=== PATIENT | male | born 1960 | race Caucasian/White ===

== ENCOUNTER 2019-05-17 17:31 | Outpatient (CLI) | payer OTHER, SELFPAY ==
--- NOTE | ~2019-05-17 | CT_ITS ---
EXAMINATION: CT BRAIN W/O DATE: 05/17/2019 19:36 INDICATION: Headache TECHNIQUE: Computed tomography (CT) of the head was performed without intravenous contrast. The dose- length product was 605.33 mGy-cm. The mA was adjusted according to patient size. Iterative reconstruc tion technique was employed. COMPARISON: No prior studies for comparison. FINDINGS: Normal brain parenchymal volume for age. Normal aguilar-white differentiation. No acute intrac ranial hemorrhage, infarction, mass or mass effect. No ventriculomegaly or midline shift. Midline sagittal images demonstrate a normal corpus callosum, c raniovertebral junction and sella turcica. Basilar cisterns are patent. There is pansinusitis. Mastoids are pneumatized. No depressed skull fractures. IMPRESSION: 1. No acute intracranial abnormality. 2: Moderate sinusitis. Reviewed, dictated and finalized at location A. ER LAM[facility]
== END 2019-05-17 17:32 | disposition home or self-care (01) ==
LOC: ANHIMG 17:38
PROVIDERS: PCP Physician Assistant; Visit Provider Physician Assistant
DX: R51 Headache (principal); J32.9 Chronic sinusitis, unspecified
CPT/HCPCS: 70450

== ENCOUNTER 2019-07-04 19:42 | Emergency (ER) | payer OTHER, SELFPAY ==
[2019-07-04 19:46] VITALS: BP 178/90; PULSE 118; RESP 20; TEMP 36.8; O2SAT 99
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
== END 2019-07-04 20:38 | disposition home or self-care (01) ==
PROVIDERS: Emergency Provider Emergency Medicine; PCP Physician Assistant
DX: M79.5 Residual foreign body in soft tissue (principal); G30.9 Alzheimer's disease, unspecified; F02.80 Dementia in other diseases classified elsewhere, unspecified severity, without behavioral disturbance, psychotic disturbance, mood disturbance, and anxiety; F41.9 Anxiety disorder, unspecified; M19.90 Unspecified osteoarthritis, unspecified site; J44.9 Chronic obstructive pulmonary disease, unspecified; F32.9 Major depressive disorder, single episode, unspecified; E78.5 Hyperlipidemia, unspecified; I10 Essential (primary) hypertension
CPT/HCPCS: 99283

== ENCOUNTER 2019-08-05 22:17 | Emergency (ER) | payer OTHER, SELFPAY ==
[2019-08-05 22:20] VITALS: BP 108/70; PULSE 106; RESP 18; TEMP 36.3; O2SAT 96
--- NOTE | 2019-08-06 00:13 | PC.NURSE ---
Went to check on pt and pt was not in room.
== END 2019-08-05 23:40 | disposition left against medical advice (07) ==
PROVIDERS: PCP Physician Assistant
DX: Z53.21 Procedure and treatment not carried out due to patient leaving prior to being seen by health care provider (principal)
CPT/HCPCS: 99199

== ENCOUNTER 2019-09-28 21:46 | Emergency (ER) | payer OTHER, SELFPAY ==
[2019-09-28 21:51] VITALS: BP 176/97; PULSE 123; RESP 20; TEMP 37.2; O2SAT 97
[2019-09-28 22:11] VITALS: BP 166/87; PULSE 120; RESP 18; TEMP 37.1; O2SAT 95
[2019-09-28] MEDS: ACETAMINOPHEN 500 MG TABLET 1000 MG PO (22:36)
[2019-09-28] MEDS: SODIUM CHLORIDE 0.9% IV 500 ML 999 ML IV CONT (22:37)
[2019-09-28 23:06] VITALS: TEMP 36.7
--- NOTE | 2019-09-28 23:10 | ED.SKABFB ---
HPI - Skin/Abscess/Foreign Bdy General Chief complaint: Skin/Abscess/Foreign Body Stated complaint: cellulitis on left leg Time Seen by Provider: 09/28/19 22:22 History of Present Illness HPI narrative: Patient is a 59-year-old male who presents ER with left lower extremity redness. Ongoing over the last couple weeks. Finished a course of Bactrim 1 week ago. Treated by PCP. No fevers or chills or sweats. Reports he will break off dry flecks of skin and then his lower extremity will turn red and become hot. It is nontender. No drainage. Patient also has history of heart failure and takes furosemide. Related Data Home Medications Medication Instructions Recorded Confirmed albuterol sulfate [ProAir HFA] INHALATION 09/28/19 09/28/19 aspirin 09/28/19 atorvastatin 09/28/19 furosemide 09/28/19 lisinopril-hydrochlorothiazide tablet 09/28/19 metoprolol succinate PO 09/28/19 Allergies Allergy/AdvReac Type Severity Reaction Status Date / Time No Known Drug Allergies Allergy Unknown Unknown Verified 09/28/19 22:17 Review of Systems Review of Systems: All systems reviewed & are unremarkable except as noted in HPI and below Constitutional: Constitutional: Denies chills, Denies fever(s) and Denies weakness ENT: Denies nasal congestion and Denies sore throat Cardiovascular: Cardiovascular: Denies chest pain, Reports rapid heart rate (Reports heart rate is always elevated) and Denies radiating jaw, neck or arm pain Respiratory: Respiratory: Denies cough and Denies dyspnea Gastrointestinal: Gastrointestinal: Denies abdominal pain, Denies nausea and Denies vomiting Integumentary/Breasts: Skin/Breast: Denies pruritus, Reports erythema and Denies rash PMFSH Social History Social History (Updated 07/04/19 @ 20:19 by Telma Gonzales) Smoking status: Current every day smoker Alcohol intake: current Gender identity (if verbalized by the patient): Male Exam Narrative: Exam Narrative: GENERAL: Chronically ill-appearing, well-nourished, and in no acute distress. HEAD: Normocephalic, atraumatic. ENT: Mucous membranes moist. CHEST: Clear to auscultation. No respiratory distress. HEART: Tachycardic and regular. Normal peripheral pulses. ABDOMEN: Soft, nontender, nondistended, normal active bowel sounds. EXTREMITIES: Normal range of motion. 1+ edema. SKIN: Warm, dry. Red rash left lower extremity dorsum of the foot extending up to the mid calf in the distribution of a sock. No purulent or serous drainage. Warm to touch but nontender. NEURO: Alert and oriented x3. Course Course Emergency Course: Patient's rash could certainly be fungal or stasis dermatitis. Elevation white blood cell count. Will start on clotrimazole cream and needs to follow-up with his PCP. Vital Signs Vital signs: Vital Signs Temperature 99.0 F 09/28/19 21:51 Pulse Rate 123 H 09/28/19 21:51 Respiratory Rate 20 09/28/19 21:51 Blood Pressure 176/97 H 09/28/19 21:51 Pulse Oximetry 97 09/28/19 21:51 Temperature 98.8 F 09/28/19 22:11 Pulse Rate 120 H 09/28/19 22:11 Respiratory Rate 18 09/28/19 22:11 Blood Pressure 166/87 H 09/28/19 22:11 Pulse Oximetry 95 09/28/19 22:11 MDM - Skin/Abscess/Foreign Bdy Lab Data Result diagrams: 09/28/19 22:39 09/28/19 22:39 Labs: Lab Results 09/28/19 09/28/19 09/28/19 Range/Units 22:39 22:39 23:06 WBC 6.2 (4.5-10.0) K/mm3 RBC 3.93 L (4.6-6.20) M/mm3 Hgb 12.1 L (14.0-18.0) g/dL Hct 36.2 L (42.0-52.0) % MCV 92.1 (80-100) fl MCH 30.8 (26-34) pg MCHC 33.4 (32-36) g/dl RDW 14.6 H (11.5-14.5) % Plt Count 214 (150-375) k/mm3 MPV 9.5 (7.4-10.4) fl Immature Gran % (Auto) 0.5 (0-0.5) % Neut % (Auto) 53.4 (45.5-73.1) % Lymph % (Auto) 29.4 (18.3-44.2) % [place] % (Auto) 11.2 H (2.6-8.5) % Eos % (Auto) 4.7 H (0-4.4) % Baso % (Auto) 0.8 (0.2-1.2) % Lymph # (Auto) 1.81
[2019-09-28 23:13] LABS: Basophils Absolute Auto 0.1 K/mm3 (0.0-0.1); Basophils Percent Auto 0.8 % (0.2-1.2); Eosinophils Absolute Auto 0.3 K/mm3 (0-0.3); Eosinophils Percent Auto 4.7 % (0-4.4); Hematocrit 36.2 % (42.0-52.0); Hemoglobin 12.1 g/dL (14.0-18.0); Immature Granulocyte Absolute 0.03 K/mm3 (0.00-0.031); Immature Granulocyte Percent A 0.5 % (0-0.5); Lymphocytes Absolute Auto 1.81 K/mm3 (0.9-3.2); Lymphocytes Percent Auto 29.4 % (18.3-44.2); Mean Corpuscular HGB Conc 33.4 g/dl (32-36); Mean Corpuscular Hemoglobin 30.8 pg (26-34); Mean Corpuscular Volume 92.1 fl (80-100); Mean Platelet Volume 9.5 fl (7.4-10.4); Monocytes Absolute Auto 0.7 K/mm3 (0.1-0.6); Monocytes Percent Auto 11.2 % (2.6-8.5); Neutrophils Absolute Auto 3.3 K/mm3 (1.3-6.7); Neutrophils Percent Auto 53.4 % (45.5-73.1); Platelet Count Result 214 k/mm3 (150-375); Red Blood Count 3.93 M/mm3 (4.6-6.20); Red Cell Distribution Width 14.6 % (11.5-14.5); White Blood Count 6.2 K/mm3 (4.5-10.0)
[2019-09-28 23:22] LABS: Blood Urea Nitrogen 21 mg/dL (9-20); Calcium 8.6 mg/dL (8.4-10.2); Carbon Dioxide 31 mmol/L (22-30); Chloride 98 mmol/L (98-107); Estimated CRCL calculation 110 ml/min; Estimated Glomerular Filt Rate > 60; Glucose 127 mg/dL (75-110); Potassium 3.6 mmol/L (3.4-5.0); Sodium 134 mmol/L (137-145)
[2019-09-28 23:23] LABS: Lactic Acid Reflex 1.5 mmol/L (0.7-2.1)
[2019-09-29 00:08] VITALS: BP 188/108; PULSE 109; RESP 14; TEMP 36.7; O2SAT 98
== END 2019-09-29 00:10 | disposition home or self-care (01) ==
PROVIDERS: Emergency Provider Emergency Medicine; PCP Physician Assistant
DX: B36.9 Superficial mycosis, unspecified (principal); F17.200 Nicotine dependence, unspecified, uncomplicated
CPT/HCPCS: 36415; 80048; 83605; 85025; 96360; 99283; A9270; J7040

== ENCOUNTER 2020-01-07 16:11 | Inpatient (IN) | payer OTHER, SELFPAY ==
--- NOTE | ~2020-01-07 | XR_ITS ---
EXAMINATION: XR chest 2V DATE: 01/08/2020 08:40 INDICATION: Cough. TECHNIQUE: Frontal and lateral views of the chest were obtained. COMPARISON: Chest single view 01/07/2020, CT abdomen and pelvis 11/06/2016 FINDINGS: There is mild scarring at the lung apices. There is mild atelectasis versus scarring at the lung bases. No pleural effusion or pneumothorax. The heart size is normal. IMPRESSION: 1. Mild atelectasis versus scarring at the lung bases and mild scarring at the lung apices. Reviewed, dictated and finalized at location A.
--- NOTE | ~2020-01-07 | XR_ITS ---
EXAMINATION: XR chest 1V portable EXAM DATE: 01/07/2020 16:41 INDICATION: Sudden onset fever and shortness of breath. TECHNIQUE: Portable AP frontal chest x-ray was obtained. Comparison is made to prior examination from 03/07/2018. FINDINGS: Mild hyperinflation. Bilateral indistinct reticulation, possible mild pulmonary edema. Also possibility of some vague developing acute airspace disease. Can't exclude developing acute infectio us process, please clinically correlate. There is left epicardial fat pad. There are bony degenerativ e changes. There is no pneumothorax suspected. IMPRESSION: Possible mild pulmonary edema or developing acute infectious process. Reviewed, dictated and finalized at location G. IMPRESSION: Possible mild pulmonary edema or developing acute infectious proces s.
[2020-01-07 16:12] VITALS: BP 102/72; PULSE 149; RESP 25; TEMP 38.1; O2SAT 96
--- NOTE | 2020-01-07 16:17 | ECG_ITS ---
Measurements Intervals [place] Rate: 148 P: 58 TN: 133 QRS: 33 QRSD: 93 T: 53 QT: 271 QTc: 425 Interpretive Statements SINUS TACHYCARDIA ABNORMAL ECG Electronically Signed On 01-07-2020 16:45:21 CDT by Dionicio Danielle D.O.
[2020-01-07 16:45] LABS: Hematocrit 42.5 % (42.0-52.0); Hemoglobin 14.4 g/dL (14.0-18.0); Mean Corpuscular HGB Conc 33.9 g/dl (32-36); Mean Corpuscular Hemoglobin 31.3 pg (26-34); Mean Corpuscular Volume 92.4 fl (80-100); Red Cell Distribution Width 12.9 % (11.5-14.5); White Blood Count 7.5 K/mm3 (4.5-10.0)
[2020-01-07 16:55] LABS: INR 1.2; Prothrombin Time 14.8 Seconds (11.1-14.7)
[2020-01-07 16:56] LABS: Lactic Acid Reflex 2.4 mmol/L (0.7-2.1)
[2020-01-07 16:56] LABS: Partial Thromboplastin Time 24.3 SECONDS (22.3-36.8)
[2020-01-07 17:00] LABS: Alanine Aminotransferase 48 U/L (4-50); Albumin Level 3.7 g/dL (3.5-5.1); Alkaline Phosphatase 184 U/L (38-126); Anion Gap 7 mmol/L (8-16); Aspartate Amino Transferase 89 U/L (17-59); Bilirubin,Total 0.6 mg/dL (0.2-1.3); Blood Urea Nitrogen 22 mg/dL (9-20); CRP 2.1 mg/dL (<1.0); Calcium 8.8 mg/dL (8.4-10.2); Carbon Dioxide 22 mmol/L (22-30); Chloride 101 mmol/L (98-107); Estimated CRCL calculation 71 ml/min; Estimated Glomerular Filt Rate > 60; Glucose 127 mg/dL (75-110); Potassium 3.9 mmol/L (3.4-5.0); Sodium 130 mmol/L (137-145)
[2020-01-07] MEDS: LACTATED RINGERS 1,000 ML 999 ML IV CONT ×2 (17:00→17:04)
[2020-01-07] MEDS: ACETAMINOPHEN 500 MG TABLET 1000 MG PO (17:04)
[2020-01-07 17:12] LABS: Band Neutrophils Percent 19 % (0-6); Lymphocytes Absolute Manual 0.37 K/mm3 (1.1-4.5); Monocytes Absolute Manual 0.15 K/mm3 (0.1-0.90); Monocytes Percent Manual 2 % (3-9); Neutrophils Absolute Manual 6.97 K/mm3 (1.3-6.7); Neutrophils Percent Manual 74 % (46-73); Total Cells Counted 100
[2020-01-07 17:13] LABS: Platelet Estimate Adequate (Adequate)
--- NOTE | 2020-01-07 17:29 | ED.FEVER ---
HPI - Fever General Chief Complaint: Fever Stated Complaint: SOB Time Seen by Provider: 01/07/20 16:33 Source: patient Mode of arrival: ambulatory Limitations: no limitations History of Present Illness HPI Narrative: 59-year-old male History of hypertension and COPD Remote history of pancreatitis Complains of a abrupt onset of fever and chills this afternoon Has a mild cough Not particularly short of breath Not exposed to the COVID that he knows of Related Data Home Medications Medication Instructions Recorded Confirmed albuterol sulfate [ProAir HFA] INHALATION 09/28/19 09/28/19 aspirin 09/28/19 atorvastatin 09/28/19 furosemide 09/28/19 lisinopril-hydrochlorothiazide tablet 09/28/19 metoprolol succinate PO 09/28/19 Allergies Allergy/AdvReac Type Severity Reaction Status Date / Time No Known Drug Allergies Allergy Unknown Unknown Verified 09/28/19 22:17 Review of Systems Review of Systems: All systems reviewed & are unremarkable except as noted in HPI and below Constitutional: Constitutional: Reports chills, Reports fatigue, Reports fever(s), Denies headache(s) and Denies night sweats Eyes: Eyes: Denies change in vision, Denies loss of vision and Denies other visual disturbances ENT: Denies headache(s), Denies hoarseness, Denies nasal congestion and Denies sore throat Cardiovascular: Cardiovascular: Denies chest pain, Denies leg edema, Denies palpitations and Denies dyspnea Respiratory: Respiratory: Reports no additional respiratory complaints Gastrointestinal: Gastrointestinal: Denies abdominal pain, Denies diarrhea, Denies nausea and Denies vomiting Genitourinary: Genitourinary: Denies hematuria, Denies dysuria and Denies urinary frequency Musculoskeletal: Musculoskeletal: Denies abnormal gait, Reports back pain, Reports myalgias, Denies deformity, Reports arthralgias, Denies joint swelling, Denies muscle weakness and Denies numbness Integumentary/Breasts: Skin/Breast: Denies rash, Denies unusual bruising and Denies wounds Neurologic: Denies abnormal gait, Denies headache(s), Denies focal weakness, Denies loss of vision and Denies numbness Psychiatric: Psychiatric: Reports no additional psychiatric complaints Endocrine: Endocrine: Denies fatigue and Denies palpitations Hematologic/Lymphatic: Hematologic/Lymphatic: Denies easy bleeding and Denies easy bruising Allergic/Immunologic: Allergic/Immunologic: Denies wheezing [facility] Social History Social History (Updated 07/04/19 @ 20:19 by Telma Gonzales) Smoking status: Current every day smoker Alcohol intake: current Gender identity (if verbalized by the patient): Male Exam Const: General: well developed and ill appearing Orientation/consciousness: patient oriented x3 (alert) and Other orientation findings (Alert) HENMT: Head: normocephalic and atraumatic Ears: external ears normal General nose exam: No nasal discharge present Face and sinus: face symmetric Mouth: Yes tongue normal and Yes moist mucous membranes Throat: other (No exudate, no erythema) Eyes: Conjunctivae: conjunctivae normal Sclera: sclerae normal EOM: EOMs intact bilaterally Neck: Neck: full ROM and supple Thyroid: thyroid normal Other: Supple Chest: Chest palpation & inspection: no tenderness Resp: Effort & Inspection: normal respiratory effort and tachypneic Auscultation: clear to auscultation bilaterally, no rales, no rhonchi, no wheezes and other (breath sounds equal) Cardio: Rate: regular rate Rhythm: regular rhythm Heart sounds: no gallops and no murmurs GI: Inspection: non-distended GI Palp: No abdominal tenderness, Yes Soft to palpation and No Tenderness to palpation present (GI) Auscultation: other (bowel sounds present) : General: Yes no CVA tenderness Back/Spine/Pelvis: Back: no CVA tenderness Thoracic/Lumbar Spine: thoracic and lumbar spine normal to inspection Skin: General skin exam: normal color and no rashes or lesion
[2020-01-07 17:37] LABS: Alveolar/Arterial O2 Gradient 45.9 mmHg; Base Excess ABG -1.4 mEq/l (+/-2.0); Device ROOM AIR; Fractional Inspired Oxygen 21 %; HCO3 ABG 20.2 mEq/l (22.0-26.0); Modified Allen's Test Pass; Oxygen Content ABG 18.5 %vol (16.0-22.0); PCO2 ABG 26.5 mmHg (35.0-45.0); PO2 ABG 72.1 mmHg (80.0-100.0); PO2 FiO2 Ratio Arterial Blood 3.43 %; Site Drawn RIGHT RADIAL; Total Hemoglobin 14.1 g/dL (12.0-18.0); pH ABG 7.501 (7.350-7.450)
[2020-01-07] MEDS: AZITHROMYCIN 250 MG TABLET 500 MG PO (18:02)
[2020-01-07] MEDS: HYDROcodone/acetaminophen (*CRX) 5-325 MG TABLET 1 TAB PO (18:03)
[2020-01-07 18:06] VITALS: BP 111/96; PULSE 121; RESP 23; O2SAT 96
[2020-01-07 19:42] LABS: Reflex Lactic Acid Yes or No Add Lactic
[2020-01-07 20:33] VITALS: BP 115/91; PULSE 105; RESP 27; O2SAT 100
[2020-01-07 20:38] LABS: Lactic Acid 1.3 mmol/L (0.7-2.1)
[2020-01-07 21:10] VITALS: BP 122/79; PULSE 106; RESP 22; TEMP 36.8; O2SAT 96; BMI 34.9
[2020-01-07 21:19] VITALS: BMI 34.9
--- NOTE | 2020-01-07 21:23 | ADMGEN ---
This patient, Ozzy Ch, was admitted to [facility] Surg Room 328-01 at 2110. Patient/family oriented to hospital policies and general routines including ID bracelet, bed and alarms, visiting hours, pain management, procedures, bathroom and other care routines, personal items, smoking policy, room service/diet, and visiting hours. Valuables list has been completed. Information on how to activate the Rapid Response Team has been discussed. Patient/Family are encouraged to report perceived risks to care and to ask questions if they do not understand what they are told or what they should do.
[2020-01-07] MEDS: LACTATED RINGERS 1,000 ML 125 ML IV CONT (21:38)
[2020-01-08] VITALS: BP 120/88; PULSE 104; RESP 20; TEMP 36.6; O2SAT 98
[2020-01-08] MEDS: ENOXAPARIN 40 MG/0.4 ML SYRINGE SUB-Q ×2 (01:14→07:48)
[2020-01-08] MEDS: FAMOTIDINE 20 MG/2 ML VIAL IV PUSH ×2 (01:15→07:47)
[2020-01-08 01:33] LABS: Add Urine Microscopic? YES; Amorphous Sediment Urine Few; Appearance Urine Clear (Clear); Bacteria Urine Trace /hpf; Bilirubin Urine Negative (Negative); Blood Urine 2+ (Negative); Color Urine Yellow (Yellow); Glucose Urine UA Negative (Negative); Ketones Urine Negative (Negative); Leukocyte Esterase Ur Negative LEU/UL (Negative); Mucus Urine Rare /lpf; Nitrate Urine Negative (Negative); Protein Urine 1+ mg/dL (Negative); Squamous Epithelial Cell Urine Rare /hpf (Few); Urobilinogen Urine Negative mg/dL (<2.0)
[2020-01-08 04:00] VITALS: BP 124/83; PULSE 96; RESP 20; TEMP 36.7; O2SAT 100
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
[2020-01-08] MEDS: LACTATED RINGERS 1,000 ML 125 ML IV CONT (07:42)
[2020-01-08 07:43] VITALS: PULSE 96
[2020-01-08] MEDS: lisinopriL 20 MG TABLET PO (07:43)
[2020-01-08] MEDS: METOPROLOL SUCCINATE EXT REL 25 MG TABCR PO (07:43)
[2020-01-08] MEDS: ATORVASTATIN 20 MG TABLET PO (07:44)
[2020-01-08] MEDS: ASPIRIN 81 MG ENTERIC TABLET PO (07:44)
[2020-01-08] MEDS: chlordiazePOXIDE (*CRX) 10 MG CAPSULE PO (07:46)
[2020-01-08] MEDS: AZITHROMYCIN 250 MG TABLET 500 MG PO (07:48)
[2020-01-08] MEDS: NICOTINE (*PBKC) 4 MG GUM PO (07:58)
[2020-01-08 08:00] VITALS: BP 135/90; PULSE 104; RESP 20; TEMP 36.4; O2SAT 100
[2020-01-08 08:03] LABS: Basophils Absolute Auto 0.2 K/mm3 (0.0-0.1); Basophils Percent Auto 0.7 % (0.2-1.2); Eosinophils Absolute Auto 0.3 K/mm3 (0-0.3); Hematocrit 42.6 % (42.0-52.0); Hemoglobin 14.5 g/dL (14.0-18.0); Immature Granulocyte Absolute 1.09 K/mm3 (0.00-0.031); Immature Granulocyte Percent A 4.2 % (0-0.5); Lymphocytes Absolute Auto 0.88 K/mm3 (0.9-3.2); Lymphocytes Percent Auto 3.4 % (18.3-44.2); Mean Corpuscular Hemoglobin 32.1 pg (26-34); Mean Corpuscular Volume 94.2 fl (80-100); Mean Platelet Volume 10.7 fl (7.4-10.4); Monocytes Absolute Auto 1.3 K/mm3 (0.1-0.6); Monocytes Percent Auto 4.8 % (2.6-8.5); Neutrophils Absolute Auto 22.5 K/mm3 (1.3-6.7); Neutrophils Percent Auto 85.9 % (45.5-73.1); Platelet Count Result 174 k/mm3 (150-375); Red Blood Count 4.52 M/mm3 (4.6-6.20); Red Cell Distribution Width 13.2 % (11.5-14.5); White Blood Count 26.2 K/mm3 (4.5-10.0)
[2020-01-08 08:12] LABS: Anion Gap 8 mmol/L (8-16); Blood Urea Nitrogen 25 mg/dL (9-20); Calcium 9.1 mg/dL (8.4-10.2); Carbon Dioxide 21 mmol/L (22-30); Chloride 104 mmol/L (98-107); Estimated CRCL calculation 90 ml/min; Estimated Glomerular Filt Rate > 60; Glucose 138 mg/dL (75-110); Potassium 4.4 mmol/L (3.4-5.0); Sodium 133 mmol/L (137-145)
[2020-01-08 08:32] LABS: Benzodiazepines Screen Urine Negative (Negative)
[2020-01-08 08:33] LABS: Cannabinoid Screen Urine Negative (Negative); Cocaine Screen Urine Negative (Negative); Methadone Screen Urine Negative (Negative); Opiate Screen Urine Positive (Negative); Phencyclidine Screen Urine Negative (Negative)
[2020-01-08 08:34] LABS: Barbiturate Screen Urine Negative (Negative)
[2020-01-08 08:35] LABS: Amphetamine Screen Urine Positive (Negative)
[2020-01-08] MEDS: FOLIC ACID 1 MG TABLET PO (09:03)
[2020-01-08] MEDS: THIAMINE HCL 100 MG TABLET PO (09:03)
[2020-01-08] MEDS: cloNIDine HCL 0.1 MG TABLET PO (09:03)
[2020-01-08 13:55] LABS: SARS-CoV-2 RNA PCR Negative
--- NOTE | 2020-01-11 12:47 | PM.DS ---
DS: Admitting Diagnosis Admitting Diagnosis Admitting Diagnosis: pneumonia, sepsis DS: Summary Hospital Course Hospital Course: patient left the hospital against medical advise before I had seen or examined him. Since I had not seen him , I am unable to comment on his condition when he left the hospital Time Spent with Patient Time attestation: Total time spent providing and/or coordinating discharge services: DS: Data Data Completed and Pending Labs on day of discharge: Preliminary micro results at discharge 01/07/20 16:29 Blood Culture - Preliminary Blood Micrococcus luteus 01/07/20 16:29 Blood Culture - Preliminary Blood Discharge Plan Discharge Consulting providers: Jameson Tony ; Dionicoi Danielle ; Kiana Yuen ; Lamonte Grewal V. Patient Disposition: Left Against Medical Advice Patient Instructions: How to Stop Smoking (GEN) Discharge Medications: No Action furosemide 40 mg tablet 40 mg PO DAILY RF: 0 atorvastatin 20 mg tablet 20 mg PO DAILY RF: 0 lisinopril-hydrochlorothiazide 20-12.5 mg tablet 1 tablet PO DAILY RF: 0 aspirin 81 mg tablet,delayed release (DR/EC) 81 mg PO DAILY RF: 0 metoprolol succinate 25 mg tablet extended release 24 hr 25 mg PO DAILY RF: 0 albuterol sulfate [ProAir HFA] 90 mcg/actuation HFA aerosol inhaler 3 puff INHALATION PRN PRN (Reason: Shortness Of Breath Or Wheezing) RF: 0 Date of admission: 01/07/20 19:11 Admitting Provider: Rick Khan Discharge Date/Time: 01/08/20 09:36 Attending physician on admission: Rick Khan Condition: Serious
== END 2020-01-08 09:36 | disposition left against medical advice (07) | DRG 720 ==
LOC: ANHED 19:10 → ANH3MEDSUR 20:10
PROVIDERS: Emergency Medicine; Internal Medicine; Admitting Provider Internal Medicine; Emergency Provider Emergency Medicine; Visit Provider Internal Medicine
DX: A41.9 Sepsis, unspecified organism (principal); J18.9 Pneumonia, unspecified organism; I11.0 Hypertensive heart disease with heart failure; I50.9 Heart failure, unspecified; J44.0 Chronic obstructive pulmonary disease with (acute) lower respiratory infection; Z20.828 Contact with and (suspected) exposure to other viral communicable diseases; F17.210 Nicotine dependence, cigarettes, uncomplicated; E78.5 Hyperlipidemia, unspecified; F10.10 Alcohol abuse, uncomplicated; F19.90 Other psychoactive substance use, unspecified, uncomplicated; Z79.82 Long term (current) use of aspirin; Z79.899 Other long term (current) drug therapy
CPT/HCPCS: 36415; 36600; 71045; 71046; 80048; 80053; 80307; 81001; 82805; 83605; 85025; 85610; 85730; 86140; 87040; 87076; 87077; 87635; 93005; 96361; 96365; 96375; 99285; A9270; C9803; J0696; J1100; J1650; J3370; J7120; U0003

== ENCOUNTER 2020-03-15 23:29 | Inpatient (IN) | payer OTHER, SELFPAY ==
--- NOTE | ~2020-03-15 | XR_ITS ---
XR chest 1V portable DATE: 03/15/2020 23:41 INDICATION: Cough TECHNIQUE: Portable AP chest on 03/07/2020 at 2344 hours COMPARISON: 01/08/2020 AP and lateral chest 03/07/2018 two-view chest FINDINGS: Heart size is within normal range. Is aortic calcification and mild unfolding. Diffuse chronic interstitial fibrosis. No pulmonary consolidation, pleural effusion or pneumothorax i s evident. Diffuse osteopenia. IMPRESSION: Chronic bilateral diffuse interstitial fibrosis Reviewed, dictated and finalized at location A. [facility]
--- NOTE | ~2020-03-15 | CT_ITS ---
EXAMINATION: CT brain wo con DATE: 03/16/2020 01:00 INDICATION: Altered mental status TECHNIQUE: Computed tomography (CT) of the head was performed without intravenous contrast. The mA wa s adjusted according to patient size. Iterative reconstruction technique was employed. Exam dose: 60 5.33 mGy-cm total exam DLP. COMPARISON: 05/17/2019 CT brain FINDINGS: Examination limited by motion artifact. No intracranial mass lesion or hemorrhage or cerebrovascular accident is evident. No midline shift or mass effect. Mild cerebral atrophy. No subdural or epidural hematoma. No fracture or bone destruction of the cranial vault. There is mucoperiosteal thickening of the maxillary sinuses, left and right frontal and right sphenoi d sinus and patchy opacification of the ethmoid air cells. The mastoid air cells are normally develop ed and aerated. IMPRESSION: No significant intracranial abnormality Paranasal sinus disease Reviewed, dictated and finalized at Location A. Reviewed, dictated and finalized at location A. 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
[2020-03-15 23:29] VITALS: BP 187/103; PULSE 115; RESP 32; TEMP 36.4; O2SAT 88
[2020-03-16] VITALS (46 sets, daily range): BP systolic 141–215; BP diastolic 59–125; PULSE 87–111; RESP 10–30; TEMP 36.8; O2SAT 90–100
[2020-03-16] MEDS: SODIUM CHLORIDE 0.9% IV 1,000 ML 150 ML IV CONT (00:12)
[2020-03-16 00:16] LABS: Basophils Absolute Auto 0.1 K/mm3 (0.0-0.1); Basophils Percent Auto 0.8 % (0.2-1.2); Eosinophils Absolute Auto 0.8 K/mm3 (0-0.3); Eosinophils Percent Auto 11.3 % (0-4.4); Hematocrit 43.3 % (42.0-52.0); Immature Granulocyte Absolute 0.02 K/mm3 (0.00-0.031); Immature Granulocyte Percent A 0.3 % (0-0.5); Lymphocytes Absolute Auto 1.47 K/mm3 (0.9-3.2); Lymphocytes Percent Auto 22.2 % (18.3-44.2); Mean Corpuscular HGB Conc 32.3 g/dl (32-36); Mean Corpuscular Hemoglobin 30.6 pg (26-34); Mean Corpuscular Volume 94.5 fl (80-100); Mean Platelet Volume 9.8 fl (7.4-10.4); Monocytes Absolute Auto 0.5 K/mm3 (0.1-0.6); Monocytes Percent Auto 8.2 % (2.6-8.5); Neutrophils Absolute Auto 3.8 K/mm3 (1.3-6.7); Neutrophils Percent Auto 57.2 % (45.5-73.1); Platelet Count Result 234 k/mm3 (150-375); Red Blood Count 4.58 M/mm3 (4.6-6.20); Red Cell Distribution Width 13.3 % (11.5-14.5); White Blood Count 6.6 K/mm3 (4.5-10.0)
[2020-03-16 00:29] LABS: Add Urine Microscopic? YES; Appearance Urine Clear (Clear); Bilirubin Urine Negative (Negative); Blood Urine 1+ (Negative); Color Urine Yellow (Yellow); Glucose Urine UA Negative (Negative); Ketones Urine Negative (Negative); Leukocyte Esterase Ur Negative LEU/UL (Negative); Nitrate Urine Negative (Negative); Protein Urine Negative (Negative); RBC Urine 0-2 /hpf (0-2); Specific Grav Ur 1.013 (1.001-1.035); Urobilinogen Urine Negative mg/dL (<2.0); WBC Urine 0-3 /hpf
[2020-03-16 00:29] LABS: Alanine Aminotransferase 31 U/L (4-50); Albumin Level 3.8 g/dL (3.5-5.1); Alkaline Phosphatase 120 U/L (38-126); Anion Gap 4 mmol/L (8-16); Aspartate Amino Transferase 39 U/L (17-59); Bilirubin,Total 0.5 mg/dL (0.2-1.3); Blood Urea Nitrogen 17 mg/dL (9-20); Calcium 8.8 mg/dL (8.4-10.2); Carbon Dioxide 38 mmol/L (22-30); Chloride 96 mmol/L (98-107); Estimated CRCL calculation 96 ml/min; Estimated Glomerular Filt Rate > 60; Ethanol < 10 mg/dL (<10); Glucose 108 mg/dL (75-110); Potassium 3.7 mmol/L (3.4-5.0); Sodium 138 mmol/L (137-145)
[2020-03-16 00:34] LABS: Amphetamine Screen Urine Positive (Negative); Barbiturate Screen Urine Negative (Negative); Benzodiazepines Screen Urine Negative (Negative); Cannabinoid Screen Urine Negative (Negative); Cocaine Screen Urine Negative (Negative); Methadone Screen Urine Negative (Negative); Opiate Screen Urine Negative (Negative); Phencyclidine Screen Urine Negative (Negative)
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
[2020-03-16 00:49] LABS: Base Excess ABG 5.5 mEq/l (+/-2.0); Fractional Inspired Oxygen 21 %; HCO3 ABG 34.4 mEq/l (22.0-26.0); Oxygen Content ABG 18.5 %vol (16.0-22.0); Oxygen Saturation ABG 92.7 % (95.0-100.0); Oxyhemoglobin 90.1 % THb (90.0-100.0); PO2 ABG 72.8 mmHg (80.0-100.0); PO2 FiO2 Ratio Arterial Blood 3.47 %; Total Hemoglobin 14.6 g/dL (12.0-18.0); pH ABG 7.306 (7.350-7.450)
[2020-03-16 00:51] LABS: Device ROOM AIR; Modified Allen's Test Pass; PCO2 ABG 70.5 mmHg (35.0-45.0); Site Drawn RIGHT RADIAL
--- NOTE | 2020-03-16 01:01 | PC.NURSE ---
spoke with pt's , Cary Bauer, and updated her on pt condition.
[2020-03-16 02:38] LABS: Alveolar/Arterial O2 Gradient 75.1 mmHg; Base Excess ABG 1.5 mEq/l (+/-2.0); Fractional Inspired Oxygen 30 %; HCO3 ABG 30.1 mEq/l (22.0-26.0); Oxygen Content ABG 17.6 %vol (16.0-22.0); Oxygen Saturation ABG 88.3 % (95.0-100.0); Oxyhemoglobin 85.7 % THb (90.0-100.0); PO2 ABG 62.2 mmHg (80.0-100.0); PO2 FiO2 Ratio Arterial Blood 2.07 %; Total Hemoglobin 14.6 g/dL (12.0-18.0)
[2020-03-16 02:39] LABS: Modified Allen's Test Pass; PCO2 ABG 65.2 mmHg (35.0-45.0); Site Drawn RIGHT RADIAL; pH ABG 7.282 (7.350-7.450)
[2020-03-16 02:40] LABS: Device NON-INVASIVE VENT; Non-Invasive Expiratory Pressure 6 CMH2O; Non-Invasive Inspiratory Pressure 12 CMH2O; Non-Invasive Vent Rate 20 /MIN
--- NOTE | 2020-03-16 02:43 | ECG_ITS ---
Measurements Intervals [place] Rate: 97 P: 64 NM: 170 QRS: 50 QRSD: 100 T: 56 QT: 348 QTc: 443 Interpretive Statements SINUS RHYTHM DELAYED PRECORDIAL R/S TRANSITION BORDERLINE ECG Electronically Signed On 03-16-2020 9:27:58 COLLECTION ADMINISTRATOR by Dionicio Danielle D.O.
[2020-03-16 03:47] LABS: NT Pro B Type Natriuretic Pept 71 PG/ML (5-100); Troponin I < 0.012 ng/mL (0.000-0.034)
[2020-03-16 03:55] LABS: Alveolar/Arterial O2 Gradient 129.3 mmHg; Base Excess ABG 3.5 mEq/l (+/-2.0); Fractional Inspired Oxygen 50 %; HCO3 ABG 33.2 mEq/l (22.0-26.0); Oxygen Content ABG 19.3 %vol (16.0-22.0); Oxygen Saturation ABG 98.3 % (95.0-100.0); Oxyhemoglobin 95.1 % THb (90.0-100.0); PO2 ABG 141.6 mmHg (80.0-100.0); PO2 FiO2 Ratio Arterial Blood 2.83 %; Total Hemoglobin 14.3 g/dL (12.0-18.0)
[2020-03-16 03:56] LABS: Device NON-INVASIVE VENT; Modified Allen's Test Pass; PCO2 ABG 76.1 mmHg (35.0-45.0); Site Drawn RIGHT RADIAL; pH ABG 7.257 (7.350-7.450)
[2020-03-16 03:57] LABS: Non-Invasive Expiratory Pressure 6 CMH2O; Non-Invasive Inspiratory Pressure 20 CMH2O; Non-Invasive Vent Rate 24 /MIN
[2020-03-16] MEDS: NITROGLYCERIN SL 0.4 MG TABLET SUBLINGUAL (04:15)
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
[2020-03-16 11:48] LABS: Alveolar/Arterial O2 Gradient 154.5 mmHg; Fractional Inspired Oxygen 40 %; HCO3 ABG 32.5 mEq/l (22.0-26.0); Oxygen Content ABG 17.8 %vol (16.0-22.0); Oxygen Saturation ABG 89.8 % (95.0-100.0); Oxyhemoglobin 89.8 % THb (90.0-100.0); PO2 ABG 61.4 mmHg (80.0-100.0); PO2 FiO2 Ratio Arterial Blood 1.54 %; Total Hemoglobin 14.1 g/dL (12.0-18.0); pH ABG 7.349 (7.350-7.450)
[2020-03-16 11:49] LABS: Device NON-INVASIVE VENT; Modified Allen's Test Pass; PCO2 ABG 60.3 mmHg (35.0-45.0); Site Drawn LEFT RADIAL
[2020-03-16 11:51] LABS: Non-Invasive Expiratory Pressure 6 CMH2O; Non-Invasive Inspiratory Pressure 20 CMH2O; Non-Invasive Vent Rate 28 /MIN
--- NOTE | 2020-03-16 14:01 | PM.IMPN ---
Progress Note: A&P Assessment and Plan (1) Acute hypercapnic respiratory failure: Code(s): J96.02 - Acute respiratory failure with hypercapnia Status: Acute Assessment and Plan: -continues BiPAP to fix hypercapnia settings 20/6 rate 26 with good tidal volumes -ABG is normalizing -admit to IMU for continuous BiPAP and telemetry -all other lab stable -supportive care, no reversal agents needed, will follow clinical status (2) Drug abuse: Code(s): F19.10 - Other psychoactive substance abuse, uncomplicated Status: Acute Assessment and Plan: -When patient is more coherent will do cessation counseling for alcoholism and benzodiazepines -UDS positive for amphetamines (3) Tobacco abuse disorder: Code(s): Z72.0 - Tobacco use Status: Acute Assessment and Plan: Nicotine patch as needed (4) Altered mental status associated with intoxication: Code(s): F10.959 - Alcohol use, unspecified with alcohol-induced psychotic disorder, unspecified Status: Acute Assessment and Plan: Supportive care. Resolving as hypercapnia is being faxed (5) Hypertensive urgency: Code(s): I16.0 - Hypertensive urgency Status: Acute Assessment and Plan: -Likely secondary to Amphetamine use -Hydralazine 10 mg iv q 6 hours prn for SBP=>180 Additional Plan # other chronic conditions, will resume home meds when more awake and alert to take p.o. meds -hypertension: Metoprolol -peripheral edema: Home Lasix -hyperlipidemia: Atorvastatin Diet: Heart healthy if alert enough to eat DVT prophylaxis: Lovenox Code status: Full code Disposition: IMU for continuous BiPAP Subjective Date/time seen: 03/16/20 14:01 Patient examined in the ED as he was boarded there. Patient is arousable and asking for water. Patient has peripheral edema and will likely need to restart his Lasix soon, right now his symptoms are all from the alcohol and Xanax. Patient is still hypercarbic pCO2 60 that was checked late morning. Will continue continuous BiPAP, if patient is awake and alert enough to eat he can resume a heart healthy diet. Patient was to be admitted to IMU for hypercapnic respiratory failure secondary to benzodiazepine and alcohol overdose. Patient was arousable on my evaluation, denied fever, chills, nausea, vomiting, diarrhea. He complained of thirst. Review of Systems Review of Systems: All systems reviewed & are unremarkable except as noted in HPI and below Exam Narrative: Exam Narrative: - GENERAL: Somnolent male with BiPAP, arousable - EYES: EOMI. Anicteric. - HENT: Moist mucous membranes. - LUNGS: Clear to auscultation bilaterally - CARDIOVASCULAR: Regular rate and rhythm. - ABDOMEN: Soft, non-tender and non-distended. Midline scar from previous ex lap - EXTREMITIES: Peripheral pulses 2+. Stasis dermatitis skin changes. 2/3+ pitting edema lower extremities, 1+ pitting edema upper extremities. - NEUROLOGIC: No focal neurological deficits. CN II-XII grossly intact. - PSYCHIATRIC: Somnolent, arousable. Appropriate mood and affect. - LYMPH: No cervical lymphadenopathy. Objective Data Vital Signs Vital Signs: Vital Signs - 24 hr 03/15/20 23:29 03/16/20 00:05 03/16/20 00:16 Temperature 36.4 C L Pulse Rate 115 H 106 H 100 Respiratory Rate 32 H 26 H 17 Blood Pressure 187/103 H 172/79 H Pulse Oximetry 88 L 95 03/16/20 00:17 03/16/20 00:30 03/16/20 00:58 Temperature Pulse Rate 101 H 102 H 100 Respiratory Rate 18 15 Blood Pressure Pulse Oximetry 03/16/20 01:00 03/16/20 01:03 03/16/20 01:04 Temperature Pulse Rate 107 H 101 H 101 H Respiratory Rate 17 13 14 Blood Pressure 200/111 H Pulse Oximetry 95 95 03/16/20 01:15 03/16/20 01:23 03/16/20 01:30 Temperature Pulse Rate 101 H 95 99 Respiratory Rate 14 20 13 Blood Pressure Pulse Oximetry 94 94 03/16/20 01:32 03/16/20 01:45 03/16/20 02:27 Temperature Pulse Rate
--- NOTE | 2020-03-16 15:59 | ADMGEN ---
This patient, Ozzy Ch, was admitted to IMU Room 231-01. Patient/family oriented to hospital policies and general routines including ID bracelet, bed and alarms, visiting hours, pain management, procedures, bathroom and other care routines, personal items, smoking policy, room service/diet, and visiting hours. Information on how to activate the Rapid Response Team has been discussed. Patient/Family are encouraged to report perceived risks to care and to ask questions if they do not understand what they are told or what they should do.
--- NOTE | 2020-03-16 18:12 | PM.DS ---
DS: Admitting Diagnosis Admitting Diagnosis Admitting Diagnosis: Acute hypercapnic respiratory failure DS: Discharge Diagnosis Discharge Diagnosis (1) Acute hypercapnic respiratory failure: Code(s): J96.02 - Acute respiratory failure with hypercapnia Status: Acute Assessment and Plan: -continues BiPAP fixed hypercapnia settings 20/6 rate 26 with good tidal volumes -ABG is normalizing -patient was admitted to IMU by the time he got up here he was back to baseline. I walked with patient and he was steady on his feet and he can follow-up with PCP. -I advised patient to stop taking Xanax as it is not safe especially with alcohol, he is cyndi that he the hospital when he did to have BiPAP help with his breathing -patient follow-up with PCP for possible underlying obstructive sleep apnea -all other lab stable -supportive care (2) Drug abuse: Code(s): F19.10 - Other psychoactive substance abuse, uncomplicated Status: Acute Assessment and Plan: -I counseled patient to stop taking Xanax as he is not prescribed medication and he consumed with alcohol which is dangerous -patient would like to follow-up PCP, he was not interested in any cessation discussion at this time but did say he would never do this again -UDS positive for amphetamines (3) Tobacco abuse disorder: Code(s): Z72.0 - Tobacco use Status: Acute Assessment and Plan: Nicotine patch as needed (4) Altered mental status associated with intoxication: Code(s): F10.959 - Alcohol use, unspecified with alcohol-induced psychotic disorder, unspecified Status: Acute Assessment and Plan: Supportive care. Resolving as hypercapnia is being faxed (5) Hypertensive urgency: Code(s): I16.0 - Hypertensive urgency Status: Acute Assessment and Plan: Blood pressure stabilized DS: Summary Hospital Course Reason for hospitalization: Hypercapnic respiratory failure Hospital Course: Patient is a 59-year-old male past medical history hypertension and hyperlipidemia presents the ED complaints of altered mental status. Patient had taken Xanax not prescribed mixing with his fireball whiskey causing him to become somnolent. He has history of drug use fentanyl IV and snorting. patient's input 20 pack-year smoking history. He was treated in the ER with continuous BiPAP as he was very somnolent and hypercapnic. He slept the alcohol and xanax off and by the time he woke up he was back to baseline functional status. Encouraged him to follow-up with PCP and with drug and alcohol abuse program. I provided information for cessation. Patient would like to follow-up PCP for cessation counseling. He understands and agrees with plan. Patient's labs stable, vitals stable, patient was able to walk without problems, patient back to baseline, patient stable for discharge. Status at Discharge Cognitive/behavioral status at discharge: Baseline Functional status at discharge: independent ambulation Overall status at discharge: patient is back to baseline Time Spent with Patient Time attestation: Total time spent providing and/or coordinating discharge services:35 Exam Narrative: Exam Narrative: - GENERAL: Awake alert no acute distress - EYES: EOMI. Anicteric. - HENT: Moist mucous membranes. - LUNGS: Clear to auscultation bilaterally - CARDIOVASCULAR: Regular rate and rhythm. - ABDOMEN: Soft, non-tender and non-distended. Midline scar from previous ex lap - EXTREMITIES: Peripheral pulses 2+. Stasis dermatitis skin changes. 2/3+ pitting edema lower extremities, 1+ pitting edema upper extremities. Wounds on his forearms dry eschar. - NEUROLOGIC: No focal neurological deficits. CN II-XII grossly intact. - PSYCHIATRIC: Somnolent, arousable. Appropriate mood and affect. Awake and alert on re-evaluation. - LYMPH: No cervical lymphadenopathy. DS: Data Data Completed and Pending Labs on day of discharge: Labs from last 24 hours
== END 2020-03-16 18:31 | disposition home or self-care (01) | DRG 133 ==
LOC: ANHED 03-16 04:12 → ANHIMU 03-16 18:20
PROVIDERS: Internal Medicine; Admitting Provider Internal Medicine; Emergency Provider Emergency Medicine; Visit Provider Student in an Organized Health Care Education/Training Program
DX: J96.02 Acute respiratory failure with hypercapnia (principal); F19.10 Other psychoactive substance abuse, uncomplicated; F10.959 Alcohol use, unspecified with alcohol-induced psychotic disorder, unspecified; I16.0 Hypertensive urgency; I10 Essential (primary) hypertension; F17.210 Nicotine dependence, cigarettes, uncomplicated; J44.9 Chronic obstructive pulmonary disease, unspecified; E78.5 Hyperlipidemia, unspecified; R60.9 Edema, unspecified; Z79.899 Other long term (current) drug therapy
CPT/HCPCS: 36415; 36600; 70450; 71045; 80053; 80307; 81001; 82805; 83880; 84484; 85025; 93005; 94002; 96360; 96361; 99285; A9270; J7030

== ENCOUNTER 2020-11-26 21:33 | Observation (INO) | payer OTHER, SELFPAY ==
[2020-11-26 21:46] VITALS: BP 153/77; PULSE 112; RESP 20; TEMP 36.6; O2SAT 97
[2020-11-26 22:08] LABS: Basophils Absolute Auto 0.1 K/mm3 (0.0-0.1); Basophils Percent Auto 0.5 % (0.2-1.2); Eosinophils Absolute Auto 0.4 K/mm3 (0-0.3); Eosinophils Percent Auto 4.2 % (0-4.4); Hematocrit 37.7 % (42.0-52.0); Hemoglobin 12.2 g/dL (14.0-18.0); Immature Granulocyte Absolute 0.06 K/mm3 (0.00-0.031); Immature Granulocyte Percent A 0.6 % (0-0.5); Lymphocytes Absolute Auto 1.48 K/mm3 (0.9-3.2); Lymphocytes Percent Auto 15.4 % (18.3-44.2); Mean Corpuscular HGB Conc 32.4 g/dl (32-36); Mean Corpuscular Hemoglobin 28.8 pg (26-34); Mean Corpuscular Volume 88.9 fl (80-100); Mean Platelet Volume 9.4 fl (7.4-10.4); Monocytes Absolute Auto 0.9 K/mm3 (0.1-0.6); Neutrophils Absolute Auto 6.8 K/mm3 (1.3-6.7); Neutrophils Percent Auto 70.3 % (45.5-73.1); Platelet Count Result 320 k/mm3 (150-375); Red Blood Count 4.24 M/mm3 (4.6-6.20); White Blood Count 9.6 K/mm3 (4.5-10.0)
[2020-11-26 22:18] LABS: Alanine Aminotransferase 27 U/L (4-50); Albumin Level 3.9 g/dL (3.5-5.1); Alkaline Phosphatase 120 U/L (38-126); Anion Gap 8 mmol/L (8-16); Aspartate Amino Transferase 40 U/L (17-59); Bilirubin,Total 0.5 mg/dL (0.2-1.3); Blood Urea Nitrogen 22 mg/dL (9-20); Calcium 8.9 mg/dL (8.4-10.2); Carbon Dioxide 26 mmol/L (22-30); Chloride 96 mmol/L (98-107); Estimated CRCL calculation 88 ml/min; Estimated Glomerular Filt Rate > 60; Glucose 135 mg/dL (65-110); Potassium 3.8 mmol/L (3.4-5.0); Sodium 130 mmol/L (137-145)
[2020-11-26 22:22] LABS: CRP 4.2 mg/dL (<1.0)
[2020-11-26 23:00] VITALS: BP 132/76; PULSE 100; RESP 20; O2SAT 100
[2020-11-27] VITALS (7 sets, daily range): BP systolic 112–138; BP diastolic 65–79; PULSE 86–99; RESP 14–21; TEMP 36.4–36.8; O2SAT 98–100; BMI 29.3
--- NOTE | 2020-11-27 | PC.NURSE ---
VORB ERP incrased NS to 999ml/hr
[2020-11-27] MEDS: MORPHINE SULFATE (*CRX) 4 MG/ML INJ IV PUSH ×5 (00:09→18:20)
[2020-11-27] MEDS: ONDANSETRON INJ 4 MG/2 ML VIAL IV PUSH (00:09)
[2020-11-27] MEDS: SODIUM CHLORIDE 0.9% IV 1,000 ML 50 ML IV CONT ×2 (00:10→02:27)
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
--- NOTE | 2020-11-27 01:44 | ADMGEN ---
This patient, Ozzy Ch, was admitted to Medical Room 243-01. Patient/family oriented to hospital policies and general routines including ID bracelet, bed and alarms, visiting hours, pain management, procedures, bathroom and other care routines, personal items, smoking policy, room service/diet, and visiting hours. Information on how to activate the Rapid Response Team has been discussed. Patient/Family are encouraged to report perceived risks to care and to ask questions if they do not understand what they are told or what they should do.
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
[2020-11-27 05:50] LABS: Estimated CRCL calculation 103 ml/min; Estimated Glomerular Filt Rate > 60
[2020-11-27] MEDS: FUROSEMIDE INJ 40 MG/4 ML VIAL IV PUSH (09:10)
[2020-11-27] MEDS: NICOTINE (*PBKC) 21 MG PATCH 1 PATCH TRANSDERM (11:14)
--- NOTE | 2020-11-27 16:55 | P.PNIM_ITS ---
Progress Note: A&P Assessment and Plan (1) Yeast dermatitis: Code(s): B37.2 - Candidiasis of skin and nail Status: Acute Assessment and Plan: * Wound consult * Wound nurse stated this is yeast infection due to appearance and attributes. * Fluconazole IV started (2) Cellulitis: Qualifiers: Laterality: right Site of cellulitis: extremity Site of cellulitis of extremity: lower extremity Qualified Code(s): L03.115 - Cellulitis of right lower limb Code(s): L03.90 - Cellulitis, unspecified Status: Acute Assessment and Plan: * Could be cellulitis bilateral leg redness up to the knee * Blood cultures pending * Ancef 1 g q.8, vancomycin 1750 mg q.12 * Deescalate antibiotics with blood culture results * White blood cell count is 9.6 * Patient stated it does look better him * Trend red evelin (3) Tobacco abuse disorder: Code(s): Z72.0 - Tobacco use Status: Acute Assessment and Plan: * Patch and gum ordered for care * Education given for cessation (4) Lower extremity edema: Code(s): R60.0 - Localized edema Status: Acute Assessment and Plan: * Probably related to the infection * Could also be due to PVD * Patient is a long-time smoker (5) Hyperlipemia: Code(s): E78.5 - Hyperlipidemia, unspecified Status: Acute Assessment and Plan: * Will get lipid panel in the a.m. * Continue atorvastatin 20 mg p.o. daily (6) Hypertension: Code(s): I10 - Essential (primary) hypertension Status: Acute Assessment and Plan: * Current blood pressure 115/66 * Home lisinopril and metoprolol on hold * Could restart in a.m. * Trend blood pressure * Blood pressure in a.m. (7) Alcohol abuse: Code(s): F10.10 - Alcohol abuse, uncomplicated Status: Acute Assessment and Plan: * Patient is a heavy drinker * [facility] protocol * Librium p.r.n. Additional Plan Bilateral lower extremity cellulitis Hyponatremia Hypertension Hyperlipidemia Alcohol abuse COPD Obesity History of lobectomy of lung 1996 Peripheral neuropathy History of polysubstance abuse Current smoker Plan: Panculture Lasix 40 mg IV daily Vancomycin and Ancef as ordered [facility] protocol Lovenox for DVT prophylaxis Full code Time Spent With Patient Time with patient: Greater than 35 minutes Subjective Date/time seen: 11/27/20 14:35 Interval history: 60-year-old with a history of hypertension, cellulitis here with complaints of bilateral leg pain, swelling and drainage for past few days. Patient said that he was tired and only slept a little bit he was up falls the night. Patient did say that he had pain in his legs and they are not as red as they were yesterday and the swelling and the redness is going down. He did say that he had a good appetite and a left snell about a month ago. Patient denied chest pains, shortness of breath, nausea, vomiting, diarrhea, constipation. It was also noted patient is a drinker but denies having symptoms of withdrawal will place patient on CIWA with Librium it back up also talked to patient about patches and gum for smoking which he stated he wanted I have been ordered. Review of Systems Review of Systems: All systems reviewed & are unremarkable except as noted in HPI and below Exam Const:
--- NOTE | 2020-11-27 16:55 | PM.IMPN ---
Progress Note: A&P Assessment and Plan (1) Yeast dermatitis: Code(s): B37.2 - Candidiasis of skin and nail Status: Acute Assessment and Plan: Wound consult Wound nurse stated this is yeast infection due to appearance and attributes. Fluconazole IV started (2) Cellulitis: Qualifiers: Laterality: right Site of cellulitis: extremity Site of cellulitis of extremity: lower extremity Qualified Code(s): L03.115 - Cellulitis of right lower limb Code(s): L03.90 - Cellulitis, unspecified Status: Acute Assessment and Plan: Could be cellulitis bilateral leg redness up to the knee Blood cultures pending Ancef 1 g q.8, vancomycin 1750 mg q.12 Deescalate antibiotics with blood culture results White blood cell count is 9.6 Patient stated it does look better him Trend red evelin (3) Tobacco abuse disorder: Code(s): Z72.0 - Tobacco use Status: Acute Assessment and Plan: Patch and gum ordered for care Education given for cessation (4) Lower extremity edema: Code(s): R60.0 - Localized edema Status: Acute Assessment and Plan: Probably related to the infection Could also be due to PVD Patient is a long-time smoker (5) Hyperlipemia: Code(s): E78.5 - Hyperlipidemia, unspecified Status: Acute Assessment and Plan: Will get lipid panel in the a.m. Continue atorvastatin 20 mg p.o. daily (6) Hypertension: Code(s): I10 - Essential (primary) hypertension Status: Acute Assessment and Plan: Current blood pressure 115/66 Home lisinopril and metoprolol on hold Could restart in a.m. Trend blood pressure Blood pressure in a.m. (7) Alcohol abuse: Code(s): F10.10 - Alcohol abuse, uncomplicated Status: Acute Assessment and Plan: Patient is a heavy drinker [facility] protocol Librium p.r.n. Additional Plan Bilateral lower extremity cellulitis Hyponatremia Hypertension Hyperlipidemia Alcohol abuse COPD Obesity History of lobectomy of lung 1997 Peripheral neuropathy History of polysubstance abuse Current smoker Plan: Panculture Lasix 40 mg IV daily Vancomycin and Ancef as ordered [facility] protocol Lovenox for DVT prophylaxis Full code Time Spent With Patient Time with patient: Greater than 35 minutes Subjective Date/time seen: 11/27/20 14:35 Interval history: 60-year-old with a history of hypertension, cellulitis here with complaints of bilateral leg pain, swelling and drainage for past few days. Patient said that he was tired and only slept a little bit he was up falls the night. Patient did say that he had pain in his legs and they are not as red as they were yesterday and the swelling and the redness is going down. He did say that he had a good appetite and a left snell about a month ago. Patient denied chest pains, shortness of breath, nausea, vomiting, diarrhea, constipation. It was also noted patient is a drinker but denies having symptoms of withdrawal will place patient on CIWA with Librium it back up also talked to patient about patches and gum for smoking which he stated he wanted I have been ordered. Review of Systems Review of Systems: All systems reviewed & are unremarkable except as noted in HPI and below Exam Const: General: cooperative, healthy appearing, no acute distress, well developed, alert, awake, ill appearing, lethargic and tired appearing Nutritional Appearance: well nourished, obese and overweight Orientation/consciousness: oriented to person, oriented to place, oriented to time and patient oriented x3 Limitations: no limitations HENMT: Head: normal to inspection Ears: hearing grossly normal bilaterally General nose exam: Normal external nose present Mouth: Yes Normal oral and palatal mucosa present, Yes lip normal and Yes tongue normal Teeth and gingiva: abnormal tooth and associa
[2020-11-27] MEDS: FLUCONAZOLE 400 MG/NACL 200 ML 400 MG/200 ML BAG 100 MG IVPB (18:22)
--- NOTE | 2020-11-27 19:51 | PC.NURSE ---
pt electronic cigarette labeled with pt sticker and placed in home medication bin.
[2020-11-28] MEDS: NICOTINE (*PBKC) 4 MG GUM PO ×2 (00:22→08:58)
[2020-11-28] MEDS: MORPHINE SULFATE (*CRX) 4 MG/ML INJ IV PUSH ×3 (00:24→11:54)
[2020-11-28] MEDS: chlordiazePOXIDE (*CRX) 25 MG CAPSULE PO (03:49)
[2020-11-28 04:00] VITALS: BP 131/73; PULSE 81; RESP 21; TEMP 36.1; O2SAT 100
[2020-11-28 06:55] LABS: Basophils Absolute Auto 0.1 K/mm3 (0.0-0.1); Eosinophils Absolute Auto 0.4 K/mm3 (0-0.3); Eosinophils Percent Auto 6.4 % (0-4.4); Hematocrit 40.4 % (42.0-52.0); Hemoglobin 12.7 g/dL (14.0-18.0); Immature Granulocyte Absolute 0.05 K/mm3 (0.00-0.031); Immature Granulocyte Percent A 0.8 % (0-0.5); Lymphocytes Absolute Auto 1.39 K/mm3 (0.9-3.2); Mean Corpuscular HGB Conc 31.4 g/dl (32-36); Mean Corpuscular Hemoglobin 29.3 pg (26-34); Mean Corpuscular Volume 93.1 fl (80-100); Mean Platelet Volume 9.6 fl (7.4-10.4); Monocytes Absolute Auto 0.7 K/mm3 (0.1-0.6); Monocytes Percent Auto 11.6 % (2.6-8.5); Neutrophils Absolute Auto 3.5 K/mm3 (1.3-6.7); Neutrophils Percent Auto 57.2 % (45.5-73.1); Platelet Count Result 275 k/mm3 (150-375); Red Blood Count 4.34 M/mm3 (4.6-6.20); Red Cell Distribution Width 13.3 % (11.5-14.5); White Blood Count 6.1 K/mm3 (4.5-10.0)
[2020-11-28 07:53] LABS: Alanine Aminotransferase 23 U/L (4-50); Albumin Level 3.4 g/dL (3.5-5.1); Alkaline Phosphatase 105 U/L (38-126); Anion Gap 8 mmol/L (8-16); Aspartate Amino Transferase 34 U/L (17-59); Bilirubin,Total 0.3 mg/dL (0.2-1.3); Blood Urea Nitrogen 14 mg/dL (9-20); Calcium 8.7 mg/dL (8.4-10.2); Carbon Dioxide 27 mmol/L (22-30); Chloride 97 mmol/L (98-107); Estimated CRCL calculation 122 ml/min; Estimated Glomerular Filt Rate > 60; Glucose 97 mg/dL (65-110); Potassium 3.7 mmol/L (3.4-5.0); Sodium 132 mmol/L (137-145)
--- NOTE | 2020-11-28 08:25 | P.DS_ITS ---
DS: Admitting Diagnosis Admitting Diagnosis Infection to bilateral lower extremities DS: Discharge Diagnosis Discharge Diagnosis (1) Yeast dermatitis: Code(s): B37.2 - Candidiasis of skin and nail Status: Acute Assessment and Plan: * Wound consult * Wound nurse stated this is yeast infection due to appearance and attributes. * Fluconazole IV started discoloration is already starting to dissipate. Redness and swelling is reduced from the foot and knee area. Will continue the fluconazole oral outpatient and cream (2) Cellulitis: Qualifiers: Laterality: right Site of cellulitis: extremity Site of cellulitis of extremity: lower extremity Qualified Code(s): L03.115 - Cellulitis of right lower limb Code(s): L03.90 - Cellulitis, unspecified Status: Acute Assessment and Plan: * Could be cellulitis bilateral leg redness up to the knee * Blood cultures pending * Ancef 1 g q.8, vancomycin 1750 mg q.12 * Deescalate antibiotics with blood culture results * White blood cell count is 9.6 * Patient stated it does look better him * Trend red evelin blood cultures are still negative white count is better today at 6.1. Neutrophils are 57.2 to normal will treat this as yeast infection for now (3) Tobacco abuse disorder: Code(s): Z72.0 - Tobacco use Status: Acute Assessment and Plan: * Patch and gum ordered for care * Education given for cessation (4) Lower extremity edema: Code(s): R60.0 - Localized edema Status: Acute Assessment and Plan: * Probably related to the infection * Could also be due to PVD * Patient is a long-time smoker (5) Hyperlipemia: Code(s): E78.5 - Hyperlipidemia, unspecified Status: Acute Assessment and Plan: * Will get lipid panel in the a.m. * Continue atorvastatin 20 mg p.o. daily (6) Hypertension: Code(s): I10 - Essential (primary) hypertension Status: Acute Assessment and Plan: * Current blood pressure 115/66 * Home lisinopril and metoprolol on hold * Could restart in a.m. * Trend blood pressure * Blood pressure in a.m. (7) Alcohol abuse: Code(s): F10.10 - Alcohol abuse, uncomplicated Status: Acute Assessment and Plan: * Patient is a heavy drinker * [facility] protocol * Librium p.r.n. DS: Summary Hospital Course Reason for hospitalization: date of service is 11/28/2020 at 7:00 a.m. Hospital Course: 60-year-old with a history of hypertension, cellulitis here with complaints of bilateral leg pain, swelling and drainage for past few days. patient is eager to get home and has asked several times to be discharged. 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 Patient also stated that he is still having lots of pain however the pain meds he is on is At the max. since admission patient was treated for bilateral lower extremity redness, swelling, warmth, Pain. Patient initially on IV antibiotics consistent of Ancef and vancomycin. Wound care nurse came and saw the patient and stated that this was not a bacterial infection it was a yeast infection. patient was then started on IV fluconazole which will be switched to oral and put on a antifungal cream. Glucose and Accu-Cheks have been running pretty borderline to consistent with diabetes. A1c is 6.3. Labs have remained unremarkable throughout the visit. Vi
--- NOTE | 2020-11-28 08:25 | PM.DS ---
DS: Admitting Diagnosis Admitting Diagnosis Infection to bilateral lower extremities DS: Discharge Diagnosis Discharge Diagnosis (1) Yeast dermatitis: Code(s): B37.2 - Candidiasis of skin and nail Status: Acute Assessment and Plan: Wound consult Wound nurse stated this is yeast infection due to appearance and attributes. Fluconazole IV started discoloration is already starting to dissipate. Redness and swelling is reduced from the foot and knee area. Will continue the fluconazole oral outpatient and cream (2) Cellulitis: Qualifiers: Laterality: right Site of cellulitis: extremity Site of cellulitis of extremity: lower extremity Qualified Code(s): L03.115 - Cellulitis of right lower limb Code(s): L03.90 - Cellulitis, unspecified Status: Acute Assessment and Plan: Could be cellulitis bilateral leg redness up to the knee Blood cultures pending Ancef 1 g q.8, vancomycin 1750 mg q.12 Deescalate antibiotics with blood culture results White blood cell count is 9.6 Patient stated it does look better him Trend red evelin blood cultures are still negative white count is better today at 6.1. Neutrophils are 57.2 to normal will treat this as yeast infection for now (3) Tobacco abuse disorder: Code(s): Z72.0 - Tobacco use Status: Acute Assessment and Plan: Patch and gum ordered for care Education given for cessation (4) Lower extremity edema: Code(s): R60.0 - Localized edema Status: Acute Assessment and Plan: Probably related to the infection Could also be due to PVD Patient is a long-time smoker (5) Hyperlipemia: Code(s): E78.5 - Hyperlipidemia, unspecified Status: Acute Assessment and Plan: Will get lipid panel in the a.m. Continue atorvastatin 20 mg p.o. daily (6) Hypertension: Code(s): I10 - Essential (primary) hypertension Status: Acute Assessment and Plan: Current blood pressure 115/66 Home lisinopril and metoprolol on hold Could restart in a.m. Trend blood pressure Blood pressure in a.m. (7) Alcohol abuse: Code(s): F10.10 - Alcohol abuse, uncomplicated Status: Acute Assessment and Plan: Patient is a heavy drinker [facility] protocol Librium p.r.n. DS: Summary Hospital Course Reason for hospitalization: date of service is 11/28/2020 at 7:00 a.m. Hospital Course: 60-year-old with a history of hypertension, cellulitis here with complaints of bilateral leg pain, swelling and drainage for past few days. patient is eager to get home and has asked several times to be discharged. 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 Patient also stated that he is still having lots of pain however the pain meds he is on is At the max. since admission patient was treated for bilateral lower extremity redness, swelling, warmth, Pain. Patient initially on IV antibiotics consistent of Ancef and vancomycin. Wound care nurse came and saw the patient and stated that this was not a bacterial infection it was a yeast infection. patient was then started on IV fluconazole which will be switched to oral and put on a antifungal cream. Glucose and Accu-Cheks have been running pretty borderline to consistent with diabetes. A1c is 6.3. Labs have remained unremarkable throughout the visit. Vital signs have also been stable throughout the visit as well. Patient was educated on smoking cessation and illicit drug use. Patient verbalized understanding. Time spent discussing smoking cessation with patient: more than 10 minutes Status at Discharge Functional status at discharge: independent ambulation Overall status at discharge: patient is progressing back to baseline Time Spent with Patient Time attestation: Total time spent providing and/or coordinating discharge services: 48
[2020-11-28] MEDS: NICOTINE (*PBKC) 21 MG PATCH 1 PATCH TRANSDERM (08:56)
[2020-11-28] MEDS: FUROSEMIDE INJ 40 MG/4 ML VIAL IV PUSH (08:58)
[2020-11-28 09:20] VITALS: BP 134/86; PULSE 97; RESP 18; TEMP 36.3; O2SAT 99
[2020-11-28 12:26] LABS: Hemoglobin A1C 6.3 % (<5.7)
[2020-11-28 13:50] VITALS: BP 134/88; PULSE 107; RESP 16; O2SAT 95
[2020-11-28 13:57] LABS: Vancomycin Trough 16.4 ug/mL (10.0-20.0)
== END 2020-11-28 14:24 | disposition home or self-care (01) ==
LOC: ANHED 11-27 00:38 → ANH2MED 11-27 04:50
PROVIDERS: General Practice; Nurse Practitioner; Admitting Provider Internal Medicine; Emergency Provider Family Medicine; Visit Provider Hospitalist
DX: B37.2 Candidiasis of skin and nail (principal); L03.115 Cellulitis of right lower limb; R60.0 Localized edema; I10 Essential (primary) hypertension; J44.9 Chronic obstructive pulmonary disease, unspecified; E78.5 Hyperlipidemia, unspecified; F41.8 Other specified anxiety disorders; Z90.2 Acquired absence of lung [part of]; F17.210 Nicotine dependence, cigarettes, uncomplicated; F10.10 Alcohol abuse, uncomplicated
CPT/HCPCS: 36415; 80053; 80202; 82565; 83036; 85025; 86140; 87040; 96365; 96366; 96367; 96375; 96376; 99285; A9270; G0378; J0690; J1450; J1940; J2270; J2405; J3370; J7030

== ENCOUNTER 2020-12-13 17:58 | Emergency (ER) | payer OTHER, SELFPAY ==
[2020-12-13] VITALS (8 sets, daily range): BP systolic 77–100; BP diastolic 41–70; PULSE 85–96; RESP 15–24; TEMP 36.6–36.9; O2SAT 95–100
--- NOTE | 2020-12-13 18:15 | PC.NURSE ---
Patient reports that he has been told that he has cellulitis [facility] at [facility] with a further diagnosis of a fungal infection to both of his lower legs. He reports that he is on an antibiotic and a cream. Patient states his symptoms are worsening with redness and itching moving up his left leg and seems to be remaining unchanged on the right leg. He reports that he notes a yellow drainage to his legs when he wakes in the morning. Denies an odor to the drainage. Additionally he reports feeling lightheaded and dizzy for the last few days. He does not report other complaints at this time.
--- NOTE | 2020-12-13 18:19 | ECG_ITS ---
Measurements Intervals [place] Rate: 84 P: 65 SC: 195 QRS: 41 QRSD: 106 T: 62 QT: 387 QTc: 460 Interpretive Statements SINUS RHYTHM BASELINE ARTIFACT- I, II, III, AVR, AVL, AVF, V1-V6 NORMAL ECG Electronically Signed On 12-14-2020 8:20:14 CDT by Dionicio Danielle D.O.
[2020-12-13] MEDS: SODIUM CHLORIDE 0.9% IV 1,000 ML 999 ML IV CONT (18:51)
--- NOTE | 2020-12-13 18:52 | ED.SKABFB ---
HPI - Skin/Abscess/Foreign Bdy General Chief complaint: Skin/Abscess/Foreign Body Stated complaint: bilateral leg redness Time Seen by Provider: 12/13/20 18:22 Source: patient Mode of arrival: ambulatory Limitations: no limitations History of Present Illness HPI narrative: Patient is a 60-year-old male complaining of bilateral leg redness and swelling that is been going on for more than a month . Patient was seen at [place] for this was admitted given IV antibiotics and was discharged. Patient was seen here 2 weeks ago for the same complaint was admitted, diagnosed with fungal dermatitis and cellulitis of bilateral lower extremities, given IV antibiotics and antifungal, discharged on oral antibiotics. Patient was supposed to follow-up with wound care but states that he was not able to. Patient states that the lower extremity redness and swelling has not changed from when he was discharged, just here to make sure try to get ahead of myself and why it is not healing . Patient denies worsening of the redness or swelling of his legs. Denies any chest pain, shortness of breath, fever or chills. Patient states that his blood pressure is low because they changed his blood pressure medication and probably gave him the wrong one when he was discharged from this hospital. Related Data Home Medications Medication Instructions Recorded Confirmed atorvastatin 20 mg PO DAILY 09/28/19 11/27/20 albuterol sulfate 2 puff INHALATION QID 11/27/20 11/27/20 aspirin 81 mg PO DAILY 11/27/20 11/27/20 escitalopram oxalate 10 mg PO DAILY 11/27/20 11/27/20 folic acid 1 mg PO DAILY 11/27/20 11/27/20 furosemide 40 mg PO DAILY 11/27/20 11/27/20 hydroxyzine HCl 25 mg PO BID PRN 11/27/20 11/27/20 lisinopril 20 mg PO DAILY 11/27/20 11/27/20 Allergies Allergy/AdvReac Type Severity Reaction Status Date / Time No Known Drug Allergies Allergy Unknown Unknown Verified 03/16/20 05:19 Review of Systems Review of Systems: All systems reviewed & are unremarkable except as noted in HPI and below Constitutional: Constitutional: Denies body ache(s), Denies chills, Denies excessive sweating, Denies fatigue, Denies fever(s), Denies headache(s), Denies lethargy, Denies malaise, Denies weakness and Denies weight loss Eyes: Eyes: Denies blurry vision, Denies change in vision and Denies loss of vision ENT: Denies dizziness, Denies ear discharge, Denies headache(s), Denies lip swelling, Denies epistaxis, Denies nasal congestion, Denies neck pain, Denies throat swelling and Denies tongue swelling Cardiovascular: Cardiovascular: Denies chest pain, Denies chest pain at rest, Denies chest pain with activity, Denies diaphoresis, Denies rapid heart rate, Denies edema, Denies irregular heart rhythm, Denies lightheadedness, Denies palpitations, Denies dyspnea and Denies dyspnea on exertion Respiratory: Respiratory: Denies chest congestion, Denies cough, Denies hemoptysis, Denies dyspnea and Denies dyspnea on exertion Gastrointestinal: Gastrointestinal: Denies abdominal pain, Denies melena, Denies hematochezia, Denies diarrhea, Denies nausea, Denies vomiting and Denies hematemesis Musculoskeletal: Musculoskeletal: Denies abnormal gait, Denies deformity, Denies joint swelling, Denies limited range of motion, Denies neck pain and Denies numbness Neurologic: Denies Abnormal speech present, Denies abnormal gait, Denies confusion, Denies dizziness, Denies headache(s), Denies focal weakness, Denies loss of vision, Denies numbness, Denies Other visual disturbances, Denies Sensory deficit (Neuro) and Denies weakness Psychiatric: Psychiatric: Denies confusion, Denies depression, Denies auditory hallucinations, Denies homicidal ideation and Denies suicidal ideation Endocrine: Endocrine: Denies cold intolerance, Denies excessive sweating, Denies fatigue, Denies heat intolerance and Denies palpitations Hematologic/Lymphatic: Hematologic/Lymphatic: Denies easy bleeding and Denies easy bruising Allergi
[2020-12-13 18:53] LABS: Basophils Absolute Auto 0.1 K/mm3 (0.0-0.1); Basophils Percent Auto 0.8 % (0.2-1.2); Eosinophils Absolute Auto 0.4 K/mm3 (0-0.3); Eosinophils Percent Auto 4.8 % (0-4.4); Hematocrit 36.4 % (42.0-52.0); Hemoglobin 11.7 g/dL (14.0-18.0); Immature Granulocyte Absolute 0.04 K/mm3 (0.00-0.031); Immature Granulocyte Percent A 0.5 % (0-0.5); Lymphocytes Absolute Auto 1.56 K/mm3 (0.9-3.2); Lymphocytes Percent Auto 17.7 % (18.3-44.2); Mean Corpuscular HGB Conc 32.1 g/dl (32-36); Mean Corpuscular Hemoglobin 28.3 pg (26-34); Mean Corpuscular Volume 88.1 fl (80-100); Mean Platelet Volume 10.1 fl (7.4-10.4); Monocytes Absolute Auto 0.6 K/mm3 (0.1-0.6); Monocytes Percent Auto 7.1 % (2.6-8.5); Neutrophils Absolute Auto 6.1 K/mm3 (1.3-6.7); Neutrophils Percent Auto 69.1 % (45.5-73.1); Platelet Count Result 339 k/mm3 (150-375); Red Blood Count 4.13 M/mm3 (4.6-6.20); White Blood Count 8.8 K/mm3 (4.5-10.0)
[2020-12-13 19:03] LABS: Lactic Acid Reflex 1.7 mmol/L (0.7-2.1)
[2020-12-13 19:05] LABS: Partial Thromboplastin Time 32.7 SECONDS (22.3-36.8)
[2020-12-13 19:06] LABS: Alanine Aminotransferase 24 U/L (4-50); Albumin Level 3.9 g/dL (3.5-5.1); Alkaline Phosphatase 104 U/L (38-126); Anion Gap 10 mmol/L (8-16); Aspartate Amino Transferase 34 U/L (17-59); Bilirubin,Total 0.5 mg/dL (0.2-1.3); Blood Urea Nitrogen 27 mg/dL (9-20); CRP 8.1 mg/dL (<1.0); Calcium 9.1 mg/dL (8.4-10.2); Carbon Dioxide 27 mmol/L (22-30); Chloride 97 mmol/L (98-107); Estimated CRCL calculation 72 ml/min; Estimated Glomerular Filt Rate > 60; Glucose 121 mg/dL (65-110); Potassium 4.1 mmol/L (3.4-5.0); Sodium 134 mmol/L (137-145)
[2020-12-13 19:12] LABS: Prothrombin Time > 120.0 Seconds (11.1-14.7)
[2020-12-13 19:14] LABS: INR > 19.0
--- NOTE | 2020-12-13 20:01 | PC.NURSE ---
I walked into the patient's room and found him sitting on the stool. He was unhooked from all monitoring and his IV was disconnected. Patient states he got up to go to the bathroom and that someone came in an unhooked me then left . Patient tells me that He wants pain medication or he will leave the ED. Patient is still noted to be hypotensive. I requested that the patient return to bed and not get out of bed because he is weak, uses a cane, and has low blood pressure and runs a high risk of falling. He refuses to get back in bed and continues to sit on the stool at this time. EDP will be notified of patient's request for pain medication.
== END 2020-12-13 21:19 | disposition left against medical advice (07) ==
PROVIDERS: Emergency Provider Emergency Medicine
DX: I87.2 Venous insufficiency (chronic) (peripheral) (principal); I95.9 Hypotension, unspecified; J44.9 Chronic obstructive pulmonary disease, unspecified; E78.5 Hyperlipidemia, unspecified; I10 Essential (primary) hypertension; M19.90 Unspecified osteoarthritis, unspecified site; F32.9 Major depressive disorder, single episode, unspecified; F41.9 Anxiety disorder, unspecified; E66.9 Obesity, unspecified; Z68.32 Body mass index [BMI] 32.0-32.9, adult; F17.210 Nicotine dependence, cigarettes, uncomplicated; Z90.2 Acquired absence of lung [part of]; Z79.82 Long term (current) use of aspirin
CPT/HCPCS: 36415; 80053; 83605; 85025; 85610; 85730; 86140; 87040; 93005; 96360; 99283; J7030

== ENCOUNTER 2021-06-27 08:09 | Emergency (ER) | payer OTHER, SELFPAY ==
[2021-06-27] VITALS (9 sets, daily range): BP systolic 138–181; BP diastolic 72–83; PULSE 80–104; RESP 12–22; TEMP 36.8; O2SAT 94–100
--- NOTE | ~2021-06-27 | XR_ITS ---
EXAMINATION: XR chest 2V DATE: 06/27/2021 08:35 INDICATION: Shortness of breath. TECHNIQUE: Frontal and lateral views of the chest were obtained on 3 radiographs. COMPARISON: Chest single view 03/15/2020, CT abdomen and pelvis 11/06/2016 FINDINGS: The lungs are hyperexpanded with chronic interstitial opacities, consistent with emphysema. There is mild scarring at right lung apex and right lung base. No pleural effusion or pneumothorax. The heart size is normal. IMPRESSION: 1. Emphysema and mild scarring. Reviewed, dictated and finalized at location A. ER RESISTANCE
--- NOTE | 2021-06-27 08:22 | ECG_ITS ---
Measurements Intervals [place] Rate: 102 P: 69 [place]: 187 QRS: 41 QRSD: 104 T: 57 QT: 359 QTc: 469 Interpretive Statements SINUS TACHYCARDIA COMPARED TO ECG 12/13/2020 20:09:30 SINUS TACHYCARDIA NOW PRESENT Electronically Signed On 06-27-2021 13:20:44 NURSE HEALTHCARE MANAGER by Carolina Chacon M.D.
--- NOTE | 2021-06-27 09:08 | PC.NURSE ---
IV/blood draw being attempted per CONCEPCION Balderas with ultrasound machine.
[2021-06-27] MEDS: ALBUTEROL SULFATE NEB 2.5 MG/0.5 ML INH 5 MG INHALATION (09:13)
[2021-06-27] MEDS: IPRATROPIUM BR 0.02% INH SOLN 0.5 MG/2.5 ML VIAL INHALATION (09:13)
--- NOTE | 2021-06-27 09:22 | PC.NURSE ---
Continue to attempt IV and blood draw per CONCEPCION Soni with ultrasound machine.
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
[2021-06-27 09:55] LABS: Basophils Percent Auto 0.5 % (0.2-1.2); Eosinophils Absolute Auto 0.6 K/mm3 (0-0.3); Eosinophils Percent Auto 9.6 % (0-4.4); Hematocrit 40.8 % (42.0-52.0); Hemoglobin 12.8 g/dL (14.0-18.0); Immature Granulocyte Absolute 0.02 K/mm3 (0.00-0.031); Immature Granulocyte Percent A 0.3 % (0-0.5); Lymphocytes Absolute Auto 1.26 K/mm3 (0.9-3.2); Lymphocytes Percent Auto 19.6 % (18.3-44.2); Mean Corpuscular HGB Conc 31.4 g/dl (32-36); Mean Corpuscular Hemoglobin 28.8 pg (26-34); Mean Corpuscular Volume 91.9 fl (80-100); Mean Platelet Volume 10.2 fl (7.4-10.4); Monocytes Absolute Auto 0.6 K/mm3 (0.1-0.6); Monocytes Percent Auto 9.5 % (2.6-8.5); Neutrophils Absolute Auto 3.9 K/mm3 (1.3-6.7); Neutrophils Percent Auto 60.5 % (45.5-73.1); Platelet Count Result 208 k/mm3 (150-375); Red Blood Count 4.44 M/mm3 (4.6-6.20); Red Cell Distribution Width 14.8 % (11.5-14.5); White Blood Count 6.4 K/mm3 (4.5-10.0)
[2021-06-27 10:09] LABS: INR 1.1
[2021-06-27 10:10] LABS: Partial Thromboplastin Time 24.7 SECONDS (22.3-36.8)
[2021-06-27 10:51] LABS: Alanine Aminotransferase 26 U/L (4-50); Albumin Level 4.1 g/dL (3.5-5.1); Alkaline Phosphatase 107 U/L (38-126); Anion Gap 4 mmol/L (8-16); Aspartate Amino Transferase 46 U/L (17-59); Bilirubin,Total 0.7 mg/dL (0.2-1.3); Blood Urea Nitrogen 15 mg/dL (9-20); Calcium 8.2 mg/dL (8.4-10.2); Carbon Dioxide 29 mmol/L (22-30); Chloride 102 mmol/L (98-107); Estimated CRCL calculation 118 ml/min; Estimated Glomerular Filt Rate > 60; Glucose 112 mg/dL (65-110); Potassium 5.7 mmol/L (3.4-5.0); Sodium 135 mmol/L (137-145)
[2021-06-27 10:54] LABS: NT Pro B Type Natriuretic Pept 73 pg/mL (5-100); Troponin I < 0.012 ng/mL (0.000-0.034)
--- NOTE | 2021-06-27 10:58 | PC.NURSE ---
Report to CONCEPCION Velásquez, to continue care.
== END 2021-06-27 12:38 | disposition home or self-care (01) ==
PROVIDERS: Emergency Provider Emergency Medicine; PCP Physician Assistant
DX: J44.1 Chronic obstructive pulmonary disease with (acute) exacerbation (principal); E78.5 Hyperlipidemia, unspecified; I10 Essential (primary) hypertension; M19.90 Unspecified osteoarthritis, unspecified site; Z79.82 Long term (current) use of aspirin; E66.9 Obesity, unspecified; Z68.29 Body mass index [BMI] 29.0-29.9, adult; F32.A Depression, unspecified; F41.9 Anxiety disorder, unspecified; Z90.2 Acquired absence of lung [part of]; F17.210 Nicotine dependence, cigarettes, uncomplicated; R00.0 Tachycardia, unspecified
CPT/HCPCS: 36415; 71046; 80053; 83880; 84484; 85025; 85610; 85730; 93005; 94640; 99284

== ENCOUNTER 2021-08-18 13:32 | Emergency (ER) | payer OTHER, SELFPAY ==
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
[2021-08-18 13:42] VITALS: BP 136/80; PULSE 108; RESP 16; TEMP 37.2; O2SAT 95
[2021-08-18] MEDS: cefTRIAXone 1 GM, LIDOCAINE HCL 1% LOCAL INJ 2.1 ML IM (14:06)
== END 2021-08-18 14:20 | disposition home or self-care (01) ==
LOC: EXPCOLL 13:37
PROVIDERS: Emergency Provider Nurse Practitioner Family
DX: K04.7 Periapical abscess without sinus (principal); J44.9 Chronic obstructive pulmonary disease, unspecified; E78.5 Hyperlipidemia, unspecified; I10 Essential (primary) hypertension; F17.210 Nicotine dependence, cigarettes, uncomplicated; Z79.82 Long term (current) use of aspirin
CPT/HCPCS: 41800; 87070; 87205; 96372; 99213; G0463; J0696

== ENCOUNTER 2022-04-20 08:00 | Outpatient (RCR) | payer OTHER, SELFPAY ==
--- NOTE | 2022-04-20 12:49 | PCPTNOTE ---
Patient did not show up for scheduled appointment this date.
== END 2022-07-05 08:42 | disposition home or self-care (01) ==
LOC: ANHPT 08:00
PROVIDERS: PCP Physician Assistant; Visit Provider Physician Assistant
DX: M25.561 Pain in right knee (principal)
CPT/HCPCS: 99199

== ENCOUNTER 2022-05-07 17:53 | Observation (INO) | payer OTHER, SELFPAY ==
--- NOTE | ~2022-05-07 | XR_ITS ---
EXAMINATION: XR knee RT min 4V DATE: 05/07/2022 20:08 INDICATION: Right knee pain. TECHNIQUE: 4 views of right knee were obtained. COMPARISON: None. FINDINGS: Bone alignment is normal. No fracture. There is diffuse osteopenia. There is mild osteoarth ritis of medial and lateral compartments. No knee joint effusion. IMPRESSION: 1. Mild right knee osteoarthritis. Reviewed, dictated and finalized at location A. ENTER
--- NOTE | ~2022-05-07 | XR_ITS ---
EXAMINATION: XR chest 2V DATE: 05/07/2022 21:36 INDICATION: Shortness of breath. TECHNIQUE: Frontal and lateral views of the chest were obtained. COMPARISON: Chest 2 views 06/27/2021, 01/08/2020, CT abdomen and pelvis 11/06/2016 FINDINGS: There is a diffuse interstitial pattern in the lungs. There is chronic blunting of the cost ophrenic angles, likely scarring. No pleural effusion or pneumothorax. The heart size is normal. IMPRESSION: 1. Diffuse interstitial pattern in the lungs, which may be mild pulmonary edema and/or chronic lung d isease. Reviewed, dictated and finalized at location A. ERCIAL PILOT IMPRESSION: 1. Diffuse interstitial pattern in the lungs, which may be mild pulmonary edema and/or chronic lung disease.
[2022-05-07 17:56] VITALS: BP 113/85; PULSE 94; RESP 20; TEMP 36.6; O2SAT 96
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
[2022-05-07 20:15] LABS: Basophils Absolute Auto 0.1 K/mm3 (0.0-0.1); Basophils Percent Auto 0.7 % (0.2-1.2); Eosinophils Absolute Auto 0.3 K/mm3 (0-0.3); Eosinophils Percent Auto 3.7 % (0-4.4); Hematocrit 40.4 % (42.0-52.0); Hemoglobin 12.9 g/dL (14.0-18.0); Immature Granulocyte Absolute 0.02 K/mm3 (0.00-0.031); Immature Granulocyte Percent A 0.2 % (0-0.5); Lymphocytes Absolute Auto 1.43 K/mm3 (0.9-3.2); Mean Corpuscular HGB Conc 31.9 g/dl (32-36); Mean Corpuscular Hemoglobin 29.3 pg (26-34); Mean Corpuscular Volume 91.8 fl (80-100); Monocytes Absolute Auto 0.8 K/mm3 (0.1-0.6); Monocytes Percent Auto 9.6 % (2.6-8.5); Neutrophils Absolute Auto 5.8 K/mm3 (1.3-6.7); Neutrophils Percent Auto 68.8 % (45.5-73.1); Platelet Count Result 288 k/mm3 (150-375); White Blood Count 8.4 K/mm3 (4.5-10.0)
[2022-05-07 20:26] LABS: Lactic Acid Reflex 1.9 mmol/L (0.7-2.0)
[2022-05-07 20:29] LABS: Alanine Aminotransferase 35 U/L (6-50); Alkaline Phosphatase 404 U/L (38-126); Anion Gap 5 mmol/L (8-16); Aspartate Amino Transferase 48 U/L (17-59); Bilirubin,Total 0.7 mg/dL (0.2-1.3); Blood Urea Nitrogen 15 mg/dL (9-20); Calcium 8.9 mg/dL (8.4-10.2); Carbon Dioxide 26 mmol/L (22-30); Chloride 106 mmol/L (98-107); Estimated CRCL calculation 105 ml/min; Estimated Glomerular Filt Rate > 60; Glucose 111 mg/dL (65-110); Potassium 3.9 mmol/L (3.4-5.0); Sodium 137 mmol/L (137-145)
[2022-05-07 20:34] LABS: NT Pro B Type Natriuretic Pept 21 pg/mL (19.9-100)
[2022-05-07 21:01] VITALS: O2SAT 99
[2022-05-07 21:02] VITALS: BP 145/86; O2SAT 100
[2022-05-07] MEDS: HYDROcodone/acetaminophen (*CRX) 5-325 MG TABLET 1 TAB PO (21:40)
[2022-05-07 21:43] VITALS: O2SAT 98
[2022-05-07 21:45] VITALS: O2SAT 98
[2022-05-07 22:22] VITALS: O2SAT 100
--- NOTE | 2022-05-07 23:18 | PC.NURSE ---
called VICTORIA Cartagena for nicotine patch for patient and diet order, informed MD Yuen patient, Osiel to inform MD Yuen about diet order and nicotine patch request.
[2022-05-07 23:57] LABS: Influenza A QL RT-PCR Negative (Negative); Influenza B QL RT-PCR Negative (Negative); RSV RNA, RT-PCR Negative (Negative); SARS-CoV-2 RNA PCR Negative
[2022-05-08] VITALS (18 sets, daily range): BP systolic 129–149; BP diastolic 71–83; PULSE 88–108; RESP 16–24; TEMP 36.6–37.1; O2SAT 94–98; BMI 32.8
--- NOTE | 2022-05-08 | ADMGEN ---
This patient, Ozzy Ch, was admitted to Medical Room 255-. Patient/family oriented to hospital policies and general routines including ID bracelet, bed and alarms, visiting hours, pain management, procedures, bathroom and other care routines, personal items, smoking policy, room service/diet, and visiting hours. Information on how to activate the Rapid Response Team has been discussed. Patient/Family are encouraged to report perceived risks to care and to ask questions if they do not understand what they are told or what they should do.
--- NOTE | 2022-05-08 00:31 | PC.NURSE ---
called MD Yuen to inform pt x3 shots of alcohol daily and has fentyl addiction. Inquiring about librium for pt.
--- NOTE | 2022-05-08 00:40 | PC.NURSE ---
Sandeep Hopen to place ciwa ordered for possible alcohol/fentyl withdraw. Drug screen ordered.
[2022-05-08] MEDS: NICOTINE (*PBKC) 21 MG PATCH 1 PATCH TRANSDERM (00:52)
--- NOTE | 2022-05-08 02:11 | PC.NURSE ---
urine drug test collected sending to lab for analysis.
[2022-05-08] MEDS: MELATONIN 5 MG TABLET PO (02:40)
[2022-05-08 03:01] LABS: Amphetamine Screen Urine Negative (Negative); Barbiturate Screen Urine Negative (Negative); Benzodiazepines Screen Urine Negative (Negative); Cannabinoid Screen Urine Negative (Negative); Cocaine Screen Urine Negative (Negative); Methadone Screen Urine Negative (Negative); Opiate Screen Urine Positive (Negative); Phencyclidine Screen Urine Negative (Negative)
--- NOTE | 2022-05-08 03:01 | ECG_ITS ---
Measurements Intervals [place] Rate: 99 P: 62 [place]: 186 QRS: 36 QRSD: 105 T: 50 QT: 359 QTc: 461 Interpretive Statements SINUS RHYTHM NORMAL ECG COMPARED TO ECG 06/27/2021 08:24:46 SINUS RHYTHM NOW PRESENT Electronically Signed On 05-08-2022 10:07:52 MALTED MILK MIXER by Dionicio Danielle D.O.
--- NOTE | 2022-05-08 03:05 | PM.IMHP ---
H&P: HPI History of Present Illness Date/Time: 05/08/22 02:05 Chief Complaint: right knee pain, wants to be placed in rehab Narrative: 62-year-old male with past medical history of chronic alcohol abuse, CHF, hyperlipidemia, essential hypertension, COPD, alcoholism and opiate abuse who presented to the ER via private vehicle to be admitted to acute rehab. The patient report was hospitalized at [facility] for 4 days a due to knee pain and wound on his lateral left leg. He was treated with a couple of days of antibiotics and then discharged home when they did not feel that his leg was infected. However, the staff at the hospital did not want him to be discharged home they wanted him to go to acute rehab but the patient refused. He chose to return home. However when he returned home he realized that the pain that he has been having in his right knee for the last 2 months was not going to allow him to ambulate around the house. he reports that his injury occurred when he was trying to climb into his son's truck couple months ago and slipped landing on his right knee. The pain is in the lateral knee and is severe with movement. He reports that he was evaluated by Orthopedic surgery at [facility] who stated they may need to do some steroid injections in the knee if his pain persisted. Due to his deconditioning they recommended placement in acute rehab. The patient thought that he could manage at home and but he could not. He reported that he did slip up snorts some fentanyl. He has long-term history of opiate abuse at least for the last fiber 6 years. He is on Suboxone at home. He reports over last 3 days he has been having 2-3 loose watery brown to yellow stools a day. These are not unusual symptoms for when he is withdrawing for opiates. He also continues to drink between 6 double shot today. His last drink was around 03:00 o'clock in the afternoon on the . He he denies any history of known episodes of alcohol withdrawal. He denies feeling anxious, sensitivity to light,, tremors, restlessness or irritability. He denies any nausea or vomiting. He reports a good appetite. He has not been any fevers or chills. He has a chronic smoker's cough that is nonproductive and unchanged. Patient seems to be having some labored breathing. He states that his breathing is at baseline. However part of his triage note stated that he was coming in for breathing treatments. Patient he denied need for breathing treatments and had not mentioned using his inhaler frequently at time of my evaluation. He he denied known liver disease. Does have chronic venous stasis dermatitis of lower extremities but reports his legs are not any redder than usual. Both lower extremities are warm right when visually appears slightly more red than the left and a little bit increased warmth. He reports that his left lower extremity venous stasis wound looks better than baseline and is healing well. He states he was prescribed some cream for the legs but he does not know what the cream is and it sounds as if he has not been dressing his wound. He denies any chest pain or palpitations. At the time my evaluation he was mildly tachycardic. EKG was not performed in the ER. The patient has 2 different prescriptions for metoprolol in the external med history. He reports he only takes metoprolol once a day. He reportedly is taken his home medicines today. He is requesting a nicotine patch but has no intention of quitting smoking. He smoked 1.5 packs of cigarettes per day since he was a teenager. Interestingly enough I had admitted the patient in the past and he is admitted to IV drug use At that time. Today he is stating that he has never used IV drugs. the patient has a crowded posterior oropharynx and repetitively keeps asking for something to sleep. He reports that he has always had difficulty sleeping. The patient had admitted to having an issue with snoring in the past but this time will n
[2022-05-08] MEDS: QUEtiapine FUMARATE 25 MG TABLET 50 MG PO ×2 (03:08→20:37)
[2022-05-08] MEDS: FUROSEMIDE 40 MG TABLET PO (09:34)
[2022-05-08] MEDS: METOPROLOL SUCCINATE EXT REL 25 MG TABCR PO (09:34)
[2022-05-08] MEDS: FOLIC ACID 1 MG TABLET PO (09:34)
[2022-05-08] MEDS: THIAMINE HCL 100 MG TABLET PO (09:34)
[2022-05-08] MEDS: ATORVASTATIN 40 MG TABLET PO (09:34)
[2022-05-08] MEDS: ASPIRIN 81 MG ENTERIC TABLET PO (09:34)
[2022-05-08] MEDS: TRIAMCINOLONE ACET 0.1% CREAM 15 GM TUBE 1 APPLIC TOPICAL ×2 (09:35→16:35)
[2022-05-08] MEDS: ENOXAPARIN 40 MG/0.4 ML SYRINGE SUB-Q (11:05)
[2022-05-08] MEDS: HYDROcodone/acetaminophen (*CRX) 5-325 MG TABLET 1 TAB PO ×3 (11:09→20:37)
[2022-05-08] MEDS: ALBUTEROL SULFATE NEB 2.5 MG/3 ML INH 5 MG INHALATION (11:45)
[2022-05-08] MEDS: IPRATROPIUM BR 0.02% INH SOLN 0.5 MG/2.5 ML VIAL INHALATION (11:45)
--- NOTE | 2022-05-08 16:46 | PM.IMPN ---
Progress Note: A&P Assessment and Plan (1) Physical deconditioning: Code(s): R53.81 - Other malaise Status: Acute Assessment and Plan: The patient has osteoarthritis and recent knee trauma resulting in the physical deconditioning. The patient was unable to get up and ambulate in the ER here so he was admitted. PT/OT ordered. Pain will be difficult to control given his hx of narcotic abuse. Care coordination consult for placement. If having severe limitations with mobility, may need to consult ortho for cortisone injection. (2) Osteoarthritis of right knee: Qualifiers: Osteoarthritis type: primary Qualified Code(s): M17.11 - Unilateral primary osteoarthritis, right knee Code(s): M17.11 - Unilateral primary osteoarthritis, right knee Status: Acute Assessment and Plan: As above (3) Drug abuse: Code(s): F19.10 - Other psychoactive substance abuse, uncomplicated Status: Acute Assessment and Plan: The patient has a history of IV drug use and snorting fentanyl as well. The patient is on Suboxone at home and this will be continued here. Will avoid narcotic use given the patient's history of drug abuse. (4) Alcohol abuse: Code(s): F10.10 - Alcohol abuse, uncomplicated Status: Acute Assessment and Plan: The patient drinks about 1/2-1 pint per day. He has been hospitalized in the past and did not develop symptoms of alcohol withdrawal. CIWA protocol started. Librium available as needed. Continue thiamine and folate. (5) Tobacco abuse disorder: Code(s): Z72.0 - Tobacco use Status: Acute Assessment and Plan: Patient was educated about the benefits of smoking cessation. He is not interested in quitting smoking. He does have COPD and understands the risks. Albuterol and Atrovent available as needed. Nicotine patch started (6) Venous stasis ulcer: Code(s): I83.009 - Varicose veins of unspecified lower extremity with ulcer of unspecified site; L97.909 - Non-pressure chronic ulcer of unspecified part of unspecified lower leg with unspecified severity Status: Acute Assessment and Plan: The patient has chronic venous stasis dermatitis with ulcer but no evidence of acute infection. Will continue monitor for infection. Wound Care has been consulted. Plan CXR personally reviewed and appears similar to June 2021 CXR so suspect that these are chronic findings. Subjective Date/time seen: 05/08/22 16:46 Interval history: 62yo male with history of CHF, HTN, COPD, alcoholism and opiate abuse who presented to the ER via private vehicle to be admitted to acute rehab.?? History reviewed with patient. He was in [place] for knee pain after a fall. SNF was recommended but patient refused and returned home. Pain was too unbearable prompting this admission. He does drink about a 1/2 piint per day. He also continues to use opiates. No hx of seizures when stopping alcohol. No CP or SOB. No n/v. Eating okay. Exam Narrative: AF 98.4 129/71 88 20 98% ra Gen - NARD sitting in a chair Chest - inspiratory and expiratory rhonchi. nml RR CV - RRR S1/S2 Abd - Soft, NT/ND, Positive BS Ext - indurated bilateral LE edema. Psych - Nml mood and affect Skin - Warm and dry. Bilateral LE pink and flushed appearing (legs are down). small dried honey colored eschars bilaterally. Large irregular left lateral venous stasis skin ulcer that is dry with weeping Objective Data Vital Signs Vital Signs: Vital Signs - 24 hr 05/07/22 17:56 05/07/22 21:01 05/07/22 21:02 Temperature 97.8 F Pulse Rate 94 Pulse Rate [Apical] Respiratory Rate 20 Blood Pressure 113/85 145/86 H Pulse Oximetry 96 99 100 Oxygen Delivery Room Air 05/07/22 21:43 05/07/22 21:45 05/07/22 22:22 Temperature Pulse Rate Pulse Rate [Apical] Respiratory Rate Blood Pressure Pulse Oximetry 98 98 100 Oxygen Delivery
[2022-05-09] VITALS (10 sets, daily range): BP systolic 113–157; BP diastolic 63–89; PULSE 89–112; RESP 16–20; TEMP 36.2–36.8; O2SAT 91–97
[2022-05-09] MEDS: ATORVASTATIN 40 MG TABLET PO (09:16)
[2022-05-09] MEDS: ASPIRIN 81 MG ENTERIC TABLET PO (09:16)
[2022-05-09] MEDS: FOLIC ACID 1 MG TABLET PO (09:17)
[2022-05-09] MEDS: EUCERIN CREAM 454 GM JAR 1 APPLIC TOPICAL ×2 (09:17→22:01)
[2022-05-09] MEDS: FUROSEMIDE 40 MG TABLET PO (09:17)
[2022-05-09] MEDS: ENOXAPARIN 40 MG/0.4 ML SYRINGE SUB-Q (09:17)
[2022-05-09] MEDS: TRIAMCINOLONE ACET 0.1% CREAM 15 GM TUBE 1 APPLIC TOPICAL (09:18)
[2022-05-09] MEDS: THIAMINE HCL 100 MG TABLET PO (09:18)
[2022-05-09] MEDS: METOPROLOL SUCCINATE EXT REL 25 MG TABCR PO (09:18)
[2022-05-09] MEDS: NICOTINE (*PBKC) 21 MG PATCH 1 PATCH TRANSDERM (09:23)
[2022-05-09] MEDS: HYDROcodone/acetaminophen (*CRX) 5-325 MG TABLET 1 TAB PO ×3 (09:38→22:02)
--- NOTE | 2022-05-09 15:30 | PM.IMPN ---
Progress Note: A&P Assessment and Plan (1) Physical deconditioning: Code(s): R53.81 - Other malaise Status: Acute Assessment and Plan: The patient has osteoarthritis and recent knee trauma resulting in the physical deconditioning. The patient was unable to get up and ambulate in the ER here so he was admitted. Care coordination consult for placement. If having severe limitations with mobility, may need to consult ortho for cortisone injection. Continue PT/OT. (2) Osteoarthritis of right knee: Qualifiers: Osteoarthritis type: primary Qualified Code(s): M17.11 - Unilateral primary osteoarthritis, right knee Code(s): M17.11 - Unilateral primary osteoarthritis, right knee Status: Acute Assessment and Plan: As above (3) Drug abuse: Code(s): F19.10 - Other psychoactive substance abuse, uncomplicated Status: Acute Assessment and Plan: The patient has a history of IV drug use and snorting fentanyl as well. The patient is on Suboxone at home and this has been continued here. He was started on [place] from the ED but will use non-narcotic medications. (4) Alcohol abuse: Code(s): F10.10 - Alcohol abuse, uncomplicated Status: Acute Assessment and Plan: The patient drinks about 1/2-1 pint per day. CIWA protocol score 1-3. Librium available as needed and has so far not required this. Continue thiamine and folate. (5) Tobacco abuse disorder: Code(s): Z72.0 - Tobacco use Status: Acute Assessment and Plan: Patient was educated about the benefits of smoking cessation. He is not interested in quitting smoking. He does have COPD and understands the risks. Albuterol and Atrovent available as needed. Nicotine patch started (6) Venous stasis ulcer: Code(s): I83.009 - Varicose veins of unspecified lower extremity with ulcer of unspecified site; L97.909 - Non-pressure chronic ulcer of unspecified part of unspecified lower leg with unspecified severity Status: Acute Assessment and Plan: The patient has chronic venous stasis dermatitis with ulcer but no evidence of acute infection. Will continue monitor for infection. Continue Eucerin cream. Wound Care has been consulted. Hold triamincinolone. Plan Apnea link showing no evidence of sleep apnea with duration 3.5hours. Subjective Date/time seen: 05/09/22 15:30 Interval history: 62yo male with history of CHF, HTN, COPD, alcoholism and opiate abuse who presented to the ER via private vehicle to be admitted to acute rehab.?? Knee pain okay. No CP or SOB. No tremors Exam Narrative: AF 157/83 98 20 92% ra Gen - NARD sitting in a chair Chest - inspiratory and expiratory rhonchi. nml RR CV - RRR S1/S2 Abd - Soft, NT/ND, Positive BS Ext - trace indurated bilateral LE edema. Psych - Nml mood and affect Skin - Warm and dry. Bilateral LE dried scale with improvement. Large irregular left lateral venous stasis skin ulcer Objective Data Vital Signs Vital Signs: Vital Signs - 24 hr 05/08/22 16:00 05/08/22 18:06 05/08/22 20:00 Temperature 98.7 F 98.5 F Pulse Rate 98 99 Pulse Rate [Apical] 88 Respiratory Rate 22 H 16 Blood Pressure 139/81 136/75 Pulse Oximetry 97 95 Oxygen Delivery 05/08/22 22:23 05/09/22 00:00 05/09/22 00:58 Temperature 98.3 F Pulse Rate 94 Pulse Rate [Apical] 100 94 Respiratory Rate 20 Blood Pressure 156/75 H Pulse Oximetry 97 Oxygen Delivery 05/09/22 04:00 05/09/22 04:00 05/09/22 09:18 Temperature 97.6 F Pulse Rate 98 98 Pulse Rate [Apical] 92 Respiratory Rate 16 Blood Pressure 149/89 H Pulse Oximetry 91 Oxygen Delivery 05/09/22 09:38 05/09/22 08:00 05/09/22 08:00 Temperature 97.1 F L Pulse Rate 102 H Pulse Rate [Apical] 96 Respiratory Rate 20 Blood Pressure 157/83 H Pulse Oximetry 92 Oxygen Delivery Room Air 05/09/22 12:00 Temperature
[2022-05-09] MEDS: QUEtiapine FUMARATE 25 MG TABLET 50 MG PO (22:01)
[2022-05-10] VITALS (8 sets, daily range): BP systolic 123–154; BP diastolic 68–88; PULSE 89–108; RESP 16–20; TEMP 36.3–37.2; O2SAT 93–98
[2022-05-10] MEDS: HYDROcodone/acetaminophen (*CRX) 5-325 MG TABLET 1 TAB PO ×4 (05:10→20:26)
[2022-05-10] MEDS: FUROSEMIDE 40 MG TABLET PO (08:03)
[2022-05-10] MEDS: METOPROLOL SUCCINATE EXT REL 25 MG TABCR PO (08:03)
[2022-05-10] MEDS: ATORVASTATIN 40 MG TABLET PO (08:03)
[2022-05-10] MEDS: FOLIC ACID 1 MG TABLET PO (08:03)
[2022-05-10] MEDS: ASPIRIN 81 MG ENTERIC TABLET PO (08:03)
[2022-05-10] MEDS: NICOTINE (*PBKC) 21 MG PATCH 1 PATCH TRANSDERM (08:04)
[2022-05-10] MEDS: EUCERIN CREAM 454 GM JAR 1 APPLIC TOPICAL ×2 (08:04→20:28)
[2022-05-10] MEDS: ENOXAPARIN 40 MG/0.4 ML SYRINGE SUB-Q (08:04)
[2022-05-10] MEDS: THIAMINE HCL 100 MG TABLET PO (08:04)
[2022-05-10] MEDS: SILVERGEL (ELTA) 45 ML 1 APPLIC TOPICAL (10:38)
--- NOTE | 2022-05-10 11:28 | PM.IMPN ---
Progress Note: A&P Assessment and Plan (1) Physical deconditioning: Code(s): R53.81 - Other malaise Status: Acute Assessment and Plan: The patient has osteoarthritis and recent knee trauma resulting in the physical deconditioning. The patient was unable to get up and ambulate in the ER here so he was admitted. Care coordination consult for placement. If having severe limitations with mobility, may need to consult ortho for cortisone injection. Continue PT/OT. Lidoderm patch. Minimize narcotics. (2) Osteoarthritis of right knee: Qualifiers: Osteoarthritis type: primary Qualified Code(s): M17.11 - Unilateral primary osteoarthritis, right knee Code(s): M17.11 - Unilateral primary osteoarthritis, right knee Status: Acute Assessment and Plan: As above (3) Drug abuse: Code(s): F19.10 - Other psychoactive substance abuse, uncomplicated Status: Acute Assessment and Plan: The patient has a history of IV drug use and snorting fentanyl as well. The patient is on Suboxone at home and this has been continued here. He was started on [place] from the ED but will encourage non-narcotic medications. (4) Alcohol abuse: Code(s): F10.10 - Alcohol abuse, uncomplicated Status: Acute Assessment and Plan: The patient drinks about 1/2-1 pint per day. CIWA protocol score 0-3. Librium available as needed and has so far not required this. Continue thiamine and folate. (5) Tobacco abuse disorder: Code(s): Z72.0 - Tobacco use Status: Acute Assessment and Plan: Patient was educated about the benefits of smoking cessation. He is not interested in quitting smoking. He does have COPD and understands the risks. Albuterol and Atrovent available as needed. Nicotine patch started (6) Venous stasis ulcer: Code(s): I83.009 - Varicose veins of unspecified lower extremity with ulcer of unspecified site; L97.909 - Non-pressure chronic ulcer of unspecified part of unspecified lower leg with unspecified severity Status: Acute Assessment and Plan: The patient has chronic venous stasis dermatitis with ulcer but no evidence of acute infection. Will continue monitor for infection. Continue Eucerin cream. Wound Care has been consulted. Hold triamincinolone. Plan Apnea link showing no evidence of sleep apnea with duration 3.5hours. Subjective Date/time seen: 05/10/22 11:28 Interval history: 62yo male with history of CHF, HTN, COPD, alcoholism and opiate abuse who presented to the ER via private vehicle to be admitted to acute rehab.?? Patient with increasing pain to right knee. He is having slight tremors. No complaints of chest pain or shortness of breath. He has a cough productive clear sputum which is chronic. Seroquel is listed as 25-50 mg at night on his home med list the patient states he takes 100 mg at night. He is requesting increase in his pain medications and also requesting the Seroquel dose to be increased. Exam Narrative: AF 150/88 98 16 93% ra Gen - NARD reclining in a chair Chest - faint expiratory wheeze o/w distant BS. nml RR CV - RRR S1/S2 Abd - Soft, NT/ND, Positive BS Ext - trace indurated bilateral LE edema. Psych - Nml mood and affect Skin - Warm and dry. Bilateral LE dried scale with improvement. Left lateral venous stasis skin ulcer dressing clean and dry Objective Data Vital Signs Vital Signs: Vital Signs - 24 hr 05/09/22 12:00 05/09/22 16:23 05/09/22 16:00 Temperature 97.6 F Pulse Rate 89 Pulse Rate [Apical] 98 109 H Respiratory Rate 18 Blood Pressure 134/78 Pulse Oximetry 94 Oxygen Delivery 05/09/22 20:00 05/09/22 22:00 05/10/22 00:35 Temperature 97.9 F 98.0 F Pulse Rate 112 H 93 Pulse Rate [Apical] Respiratory Rate 20 16 Blood Pressure 113/63 146/78 H Pulse Oximetry 95 94 Oxygen Delivery Room Air 05/10/22 04:40 Temperature 98.9
[2022-05-10] MEDS: QUEtiapine FUMARATE 25 MG TABLET 75 MG PO (20:28)
[2022-05-10] MEDS: IPRATROPIUM BR 0.02% INH SOLN 0.5 MG/2.5 ML VIAL INHALATION (21:30)
[2022-05-10] MEDS: ALBUTEROL SULFATE NEB 2.5 MG/3 ML INH 5 MG INHALATION (21:31)
[2022-05-11] MEDS: HYDROcodone/acetaminophen (*CRX) 5-325 MG TABLET 1 TAB PO ×2 (05:15→12:36)
[2022-05-11 06:00] VITALS: BP 134/82; PULSE 97; RESP 18; TEMP 36.9; O2SAT 95
--- NOTE | 2022-05-11 06:13 | PC.NURSE ---
Pt angered this morning because he stated he is tired of sitting in the recliner and threw his chair alarm onto his bed. I explained that due to hospital policy and his safety as a fall risk that he needed to keep it on and if he wishes to walk around he has to call and let somebody know. Pt does not wish to do so and said he will be going by his own rules or he will call to go home. Will continue to closely monitor pt.
[2022-05-11] MEDS: ENOXAPARIN 40 MG/0.4 ML SYRINGE SUB-Q (08:01)
[2022-05-11] MEDS: LIDOCAINE 5% PATCH 1 PATCH TRANSDERM (08:01)
[2022-05-11] MEDS: THIAMINE HCL 100 MG TABLET PO (08:02)
[2022-05-11] MEDS: FOLIC ACID 1 MG TABLET PO (08:02)
[2022-05-11] MEDS: ATORVASTATIN 40 MG TABLET PO (08:02)
[2022-05-11] MEDS: ASPIRIN 81 MG ENTERIC TABLET PO (08:02)
[2022-05-11] MEDS: FUROSEMIDE 40 MG TABLET PO (08:02)
[2022-05-11] MEDS: NICOTINE (*PBKC) 21 MG PATCH 1 PATCH TRANSDERM (08:02)
[2022-05-11] MEDS: METOPROLOL SUCCINATE EXT REL 25 MG TABCR PO (08:02)
[2022-05-11] MEDS: SILVERGEL (ELTA) 45 ML 1 APPLIC TOPICAL (08:03)
[2022-05-11] MEDS: EUCERIN CREAM 454 GM JAR 1 APPLIC TOPICAL (08:03)
--- NOTE | 2022-05-11 13:24 | PM.DS ---
DS: Admitting Diagnosis Discharge Date 05/11/22 Admitting Diagnosis Right knee pain DS: Discharge Diagnosis Discharge Diagnosis (1) Physical deconditioning: Code(s): R53.81 - Other malaise Status: Acute (2) Osteoarthritis of right knee: Qualifiers: Osteoarthritis type: primary Qualified Code(s): M17.11 - Unilateral primary osteoarthritis, right knee Code(s): M17.11 - Unilateral primary osteoarthritis, right knee Status: Acute (3) Drug abuse: Code(s): F19.10 - Other psychoactive substance abuse, uncomplicated Status: Acute (4) Alcohol abuse: Code(s): F10.10 - Alcohol abuse, uncomplicated Status: Acute (5) Tobacco abuse disorder: Code(s): Z72.0 - Tobacco use Status: Acute (6) Venous stasis ulcer: Code(s): I83.009 - Varicose veins of unspecified lower extremity with ulcer of unspecified site; L97.909 - Non-pressure chronic ulcer of unspecified part of unspecified lower leg with unspecified severity Status: Acute DS: Summary Hospital Course Reason for hospitalization: 62yo male with history of CHF, HTN, COPD, alcoholism and opiate abuse who presented to the ER via private vehicle to be admitted to acute rehab.??Please see H&P for details Hospital Course: The patient has osteoarthritis and recent knee trauma resulting in the physical deconditioning. The patient was unable to get up and ambulate in the ER here so he was admitted. Care coordination consulted for placement. PT/OT ordered. Lidoderm patch to the knee. The patient has a history of IV drug use and snorting fentanyl as well.? The patient is on Suboxone at home and this was continued here.? He was started on [place] from the ED but we encouraged non-narcotic medications. The patient drinks about 1/2-1 pint per day. CIWA protocol score 0-3. Librium was available as needed and he did not require this. Also treated with thiamine and folate. Patient was educated about the benefits of smoking cessation.? He is not interested in quitting smoking.? He does have COPD and understands the risks. The patient has chronic venous stasis dermatitis with ulcer but no evidence of acute infection.?With therapy, he was able to walk with walker. He was able to be discharged home on 05/11/22 Status at Discharge Cognitive/behavioral status at discharge: stable Time Spent with Patient Time attestation: Total time spent providing and/or coordinating discharge services: 32 minutes Time spent: Greater than 30 minutes Exam Narrative: AF 134/82 97 18 95% ra Gen - NARD reclining in a chair Chest - faint diffuse expiratory wheeze o/w distant BS. nml RR CV - RRR S1/S2 Abd - Soft, NT/ND, Positive BS Ext - trace indurated bilateral LE edema. Psych - Nml mood and affect Skin - Warm and dry. Bilateral LE covered with eucerin. Left lateral venous stasis skin ulcer dressing clean and dry Discharge Plan Discharge Attending physician on discharge: Rick Khan Discharging Clinician: Rick Khan Anticipated Discharge Date/Time: 05/11/22 13:28 Patient Disposition: Home Health Service Activity: as tolerated and other - see discharge instructions Diet: heart healthy Discharge Instructions: Care Coordination: Patient to have [facility] for PT/OT eval and treat, and RN services. They can be reached at [phone] if you have any questions. They will contact you to schedule their first visit. You will need to notify them of any change in address. RN Please fax discharge instructions to [phone]. Walk with Walker Take precautions to avoid falls. Rise slowly from a lying or sitting position. Pause before standing or walking. Contact your doctor or call 911 and come to the Emergency Room if you are having trouble walkinig or other worrisome symptoms. RN: Please provide instructions on how to continue current wound care. Avoid all alcohol containing products Avoi
== END 2022-05-11 14:25 | disposition home health service (06) ==
LOC: ANHED 21:56 → ANH2MED 23:19
PROVIDERS: Admitting Provider Internal Medicine; Emergency Provider Nurse Practitioner Family; PCP Physician Assistant; Visit Provider Internal Medicine
DX: R53.81 Other malaise (principal); M17.11 Unilateral primary osteoarthritis, right knee; F19.10 Other psychoactive substance abuse, uncomplicated; F10.10 Alcohol abuse, uncomplicated; I83.013 Varicose veins of right lower extremity with ulcer of ankle; I87.332 Chronic venous hypertension (idiopathic) with ulcer and inflammation of left lower extremity; L97.319 Non-pressure chronic ulcer of right ankle with unspecified severity; F17.210 Nicotine dependence, cigarettes, uncomplicated; M25.561 Pain in right knee; Z20.822 Contact with and (suspected) exposure to COVID-19; I11.0 Hypertensive heart disease with heart failure; I50.9 Heart failure, unspecified; R60.0 Localized edema; R26.2 Difficulty in walking, not elsewhere classified; R53.1 Weakness; F41.9 Anxiety disorder, unspecified; J44.9 Chronic obstructive pulmonary disease, unspecified; R91.8 Other nonspecific abnormal finding of lung field; F32.A Depression, unspecified; E78.5 Hyperlipidemia, unspecified; E66.9 Obesity, unspecified; Z68.32 Body mass index [BMI] 32.0-32.9, adult; Z90.2 Acquired absence of lung [part of]; Z79.51 Long term (current) use of inhaled steroids; Z79.82 Long term (current) use of aspirin; Z79.52 Long term (current) use of systemic steroids; Z79.899 Other long term (current) drug therapy
CPT/HCPCS: 36415; 71046; 73564; 80053; 80307; 83605; 83880; 85025; 87637; 93005; 94640; 96372; 97110; 97116; 97161; 97165; 97530; 97535; 99285; A9270; G0378; G0379; J1650

== ENCOUNTER 2022-06-09 13:36 | Outpatient (CLI) | payer OTHER, SELFPAY ==
--- NOTE | 2022-06-09 20:52 | WPDPFTINT ---
PFT Procedure Performed PFT Procedure Performed Spirometry with Pre/Post Bronchodilator Plethysmography (Lung Vol) Diffusing Cap (DLCO) Flow Vol Loop PFT Interpretation DOS: 06/09/2022 REQUESTING: VICTORIA Eli REASON FOR TESTING: COPD PULMONARY FUNCTION TESTS Results are reliable and reproducible. Spirometry: The dilator FEV1 is 1.63 L, 44%, moderately reduced. Pre bronchodilator FVC is 3.16 L, reduced. FEV1/ FVC ratio is 51%, reduced consistent with airflow obstruction. After bronchodilator the FEV1 does not increase, remains 1.63 L. after bronchodilator the FVC increases 10%, 3.43 L, 72% predicted. This is not a statistically significant change as it is less than 12%. Lung volumes: total lung capacity is 7.18 L, 97%, normal. Residual volume is 4.02 L, 165% predicted which is consistent with severe air trapping. RV/TLC is increased 56%. Airway resistance elevated, 4.52 mcH2)/L/sec, 363%. Diffusion: DLCO 16.1, 57%, moderately decreased. DLCO/VA is 4.13, 103%, normal. Flow volume loop: There is coving of the expiratory limb. IMPRESSION: This study shows extremely severe obstructive ventilatory impairment without significant change after bronchodilator, severe air trapping and moderate diffusion impairment that corrects for alveolar volume. Lack of response to bronchodilator should not preclude use if clinically indicated. Ely Martin MD
== END 2022-06-09 13:37 | disposition home or self-care (01) ==
LOC: ANHPFT 13:36
PROVIDERS: PCP Physician Assistant; Visit Provider Physician Assistant
DX: J44.9 Chronic obstructive pulmonary disease, unspecified (principal); R94.2 Abnormal results of pulmonary function studies
CPT/HCPCS: 94060; 94726; 94729

== ENCOUNTER 2022-12-08 17:02 | Observation (INO) | payer OTHER, SELFPAY ==
[2022-12-08] VITALS (15 sets, daily range): BP systolic 119–137; BP diastolic 68–82; PULSE 87–106; RESP 12–23; TEMP 36.4–37.1; O2SAT 65–98; BMI 34.0
--- NOTE | ~2022-12-08 | CT_ITS ---
EXAMINATION: CT chest high resolution wo wi DATE: 12/09/2022 10:56 INDICATION: COPD TECHNIQUE: Computed tomography (CT) of the chest was performed without intravenous contrast. The dose -length product (DLP) was 634.00 mGy-cm. Automated exposure control and iterative reconstruction tech nique were employed. COMPARISON: None FINDINGS: There is moderate emphysema. There are minimal airspace opacities of the lung bases. No ple ural effusion or pneumothorax. No pathologically enlarged thoracic lymph nodes are identified. The he art size is normal. There is moderate bilateral gynecomastia. Calcified coronary artery atheroscleros is is noted. There is mild thoracic spondylosis. IMPRESSION: 1. Moderate emphysema. 2. Airspace opacities of the lung bases, consistent with atelectasis and pneumonia. Reviewed, dictated and finalized at location A. IMPRESSION: 1. Moderate emphysema. 2. Airspace opacities of the lung bases, consistent with atelectasis and pneumo [place].
--- NOTE | ~2022-12-08 | CT_ITS ---
EXAMINATION: CT brain wo con DATE: 12/08/2022 19:48 INDICATION: Altered mental status TECHNIQUE: Computed tomography (CT) of the head was performed without intravenous contrast. Sagittal and coronal reconstructions were performed. The mA was adjusted according to patient size. Iterative reconstruction technique was employed. The dose-length product was 1210.67 mGy-cm. COMPARISON: head CT dated 03/16/2020 FINDINGS: No acute intracranial hemorrhage, acute infarction or abnormal extra axial fluid collection. There is mild scattered white matter hypoattenuation consistent with chronic small vessel ischemic disease. S ymmetric prominence of the sulci and ventricles consistent with mild age-appropriate diffuse cerebral volume loss. No mass/mass effect. Moderate mucosal thickening at the bilateral frontal, ethmoid and maxillary sinuses. The orbits and mastoid air cells are normal. IMPRESSION: 1. No fracture or acute intracranial process. 2. Age-related changes including mild diffuse volume loss and mild scattered white matter hypoattenua tion consistent with chronic small vessel ischemic disease. 3. Sinus disease. Reviewed, dictated and finalized at location A. IMPRESSION: 1. No fracture or acute intracranial process. 2. Age-related changes including mild diffuse volume loss and mild scattered wh ite matter hypoattenuation consistent with chronic small vessel ischemic diseas e. 3. Sinus disease.
--- NOTE | ~2022-12-08 | XR_ITS ---
EXAMINATION: XR chest 1V portable DATE: 12/08/2022 18:09 INDICATION: Dyspnea TECHNIQUE: frontal view of the chest was obtained. COMPARISON: Chest radiograph dated 05/07/2022 FINDINGS: Cardiomegaly with pulmonary vascular congestion. Diffuse increased interstitial pattern throughout al l of the lung zones bilaterally. Airspace opacity at the left costophrenic angle. No pleural effusion or pneumothorax. Margin of the central pulmonary arteries consistent with pulmonary arterial hyperte nsion. Likely old fracture at the anterior left sixth rib. IMPRESSION: 1. Likely congestive heart failure with cardiomegaly and pulmonary vascular congestion and mild diffu se pulmonary edema throughout both lungs. 2. Airspace opacity left costophrenic angle which could represent atelectasis or pneumonia. Reviewed, dictated and finalized at location A. IMPRESSION: 1. Likely congestive heart failure with cardiomegaly and pulmonary vascular con gestion and mild diffuse pulmonary edema throughout both lungs. 2. Airspace opacity left costophrenic angle which could represent atelectasis o r pneumonia.
--- NOTE | 2022-12-08 17:06 | ECG_ITS ---
Measurements Intervals [place] Rate: 108 P: 48 UT: 168 QRS: 79 QRSD: 100 T: 69 QT: 341 QTc: 457 Interpretive Statements SINUS TACHYCARDIA POSSIBLE LEFT ATRIAL ENLARGEMENT [-0.1mV P WAVE IN V1/V2] ABNORMAL RHYTHM ECG COMPARED TO ECG 05/08/2022 08:28:34 SINUS TACHYCARDIA NOW PRESENT Electronically Signed On 12-08-2022 17:21:43 CDT by Carolina Chacon M.D.
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
[2022-12-08 17:34] LABS: Basophils Absolute Auto 0.1 K/mm3 (0.0-0.1); Basophils Percent Auto 0.9 % (0.2-1.2); Eosinophils Absolute Auto 0.2 K/mm3 (0-0.3); Eosinophils Percent Auto 2.4 % (0-4.4); Hematocrit 47.7 % (42.0-52.0); Immature Granulocyte Absolute 0.03 K/mm3 (0.00-0.031); Immature Granulocyte Percent A 0.4 % (0-0.5); Lymphocytes Percent Auto 19.2 % (18.3-44.2); Mean Corpuscular HGB Conc 29.4 g/dl (32-36); Mean Corpuscular Hemoglobin 26.8 pg (26-34); Mean Corpuscular Volume 91.4 fl (80-100); Mean Platelet Volume 9.6 fl (7.4-10.4); Monocytes Absolute Auto 0.6 K/mm3 (0.1-0.6); Monocytes Percent Auto 7.8 % (2.6-8.5); Neutrophils Absolute Auto 5.4 K/mm3 (1.3-6.7); Neutrophils Percent Auto 69.3 % (45.5-73.1); Platelet Count Result 237 k/mm3 (150-375); Red Blood Count 5.22 M/mm3 (4.6-6.20); Red Cell Distribution Width 20.5 % (11.5-14.5); White Blood Count 7.8 K/mm3 (4.5-10.0)
[2022-12-08 17:46] LABS: Ethanol 14 mg/dL (<10)
[2022-12-08] MEDS: ALBUTEROL SULFATE NEB 2.5 MG/3 ML INH INHALATION (17:46)
[2022-12-08] MEDS: IPRATROPIUM BR 0.02% INH SOLN 0.5 MG/2.5 ML VIAL INHALATION (17:47)
[2022-12-08 17:57] LABS: Hypochromasia 1+ (NORMAL); Platelet Estimate Adequate (Adequate); Schistocytes None Seen (NORMAL)
[2022-12-08 17:57] LABS: Alveolar/Arterial O2 Gradient 68.8 mmHg; Base Excess ABG 5.9 mEq/l (+/-2.0); Carboxyhemoglobin 5.9 % THb (0-2.0); Fractional Inspired Oxygen 30 %; HCO3 ABG 34.4 mEq/l (22.0-26.0); Methemoglobin ABG 0.4 %THb (0-1.5); Oxygen Content ABG 17.3 %vol (16.0-22.0); Oxygen Saturation ABG 90.8 % (95.0-100.0); PO2 ABG 65.7 mmHg (80.0-100.0); PO2 FiO2 Ratio Arterial Blood 2.19 %; Reduced Hemoglobin 8.8 %THb (0-5.0); Total Hemoglobin 14.5 g/dL (12.0-18.0); pH ABG 7.324 (7.350-7.450)
[2022-12-08 17:58] LABS: Anisocytosis 3+ (NORMAL)
[2022-12-08 18:00] LABS: Device NON-INVASIVE VENT; Modified Allen's Test Pass; Oxyhemoglobin 84.9 % THb (90.0-100.0); PCO2 ABG 67.6 mmHg (35.0-45.0); Site Drawn LEFT RADIAL
[2022-12-08 18:01] LABS: Non-Invasive Expiratory Pressure 6 CMH2O; Non-Invasive Inspiratory Pressure 12 CMH2O; Non-Invasive Vent Rate 4 /MIN
[2022-12-08 20:39] LABS: Alanine Aminotransferase 19 U/L (6-50); Albumin Level 3.7 g/dL (3.5-5.1); Alkaline Phosphatase 209 U/L (38-126); Anion Gap 5 mmol/L (8-16); Aspartate Amino Transferase 28 U/L (17-59); Bilirubin,Total 0.9 mg/dL (0.2-1.3); Blood Urea Nitrogen 16 mg/dL (9-20); Calcium 8.3 mg/dL (8.4-10.2); Carbon Dioxide 36 mmol/L (22-30); Chloride 93 mmol/L (98-107); Estimated CRCL calculation 120 ml/min; Estimated Glomerular Filt Rate > 60; Glucose 117 mg/dL (65-110); Lactic Acid Reflex 1.8 mmol/L (0.7-2.0); Potassium 4.7 mmol/L (3.4-5.0); Sodium 134 mmol/L (137-145)
[2022-12-08 20:51] LABS: Lipase 29 U/L (23-300)
[2022-12-08] MEDS: AZITHROMYCIN 500 MG/NS 250 ML 500 MG/250 ML BAG 250 MG IVPB (20:59)
[2022-12-08] MEDS: methylPREDNISolone SOD SUCC 125 MG VIAL IV PUSH (20:59)
--- NOTE | 2022-12-08 21:24 | PC.NURSE ---
Pt found hanging on end of bed with BiPap machine off, mask on the floor. Pt disconnected himself from all monitoring leads. When attempting to educate pt on the importance of keeping all monitoring leads and BiPap on, he interrupted stating I am down with all this shit, I'm breathing fine now. I want to go home.
[2022-12-08 21:28] LABS: Influenza A QL RT-PCR Negative (Negative); Influenza B QL RT-PCR Negative (Negative); SARS-CoV-2 RNA PCR Negative (Negative)
--- NOTE | 2022-12-08 21:40 | PM.IMHP ---
H&P: HPI History of Present Illness Date/Time: 12/08/22 21:40 Chief Complaint: ALTERED MENTAL STATUS Narrative: THIS IS A 62-YEAR-OLD MALE WITH PAST MEDICAL HISTORY SIGNIFICANT FOR SEVERE COPD/EMPHYSEMA, TOBACCO DEPENDENCE, IV DRUG USE, ALCOHOL DEPENDENCE, CHRONIC LYMPHEDEMA. PATIENT WAS BROUGHT TO THE EMERGENCY ROOM DUE TO ALTERED MENTAL STATUS FOR THE LAST 2 DAYS OR SO NOTED HIM TO BE OBTUNDED BARELY RESPONSIVE AND HOME PULSE OXIMETRY REGISTERED AT 70%. UPON ARRIVAL TO EMERGENCY ROOM PATIENT WAS STARTED ON BIPAP THERAPY, AN ABG OBTAINED AROUND THIS TIME SHOWED A PH OF 7.32 PCO2 67 PO2 65. PATIENT STATES THAT HE IS FEELING MUCH BETTER AT THE TIME OF MY VISIT HE WAS ON 5 L OF SUPPLEMENTAL OXYGEN BY NASAL CANNULA AFTER HE THREATENED TO LEAVE AGAINST MEDICAL ADVISE AND TOOK HIS BIPAP MASK OFF. STATES THAT HE IS DOWN TO 10 CIGARETTES A DAY FOR AND THAT HE IS TRYING TO QUIT DRINKS HALF A PT OF LIQUOR EVERY DAY. URINE TOXICOLOGY WAS POSITIVE FOR AMPHETAMINES, BENZODIAZEPINE AND COCAINE HE TESTED NEGATIVE FOR INFLUENZA TYPE A INFLUENZA TYPE B AND COVID. PATIENT IS REALLY NOT A VERY GOOD HISTORIAN CANNOT REALLY CONTRIBUTE MUCH TO HISTORY TAKING BUT DENIES ANY COUGH, SPUTUM PRODUCTION, NO CHEST PAIN. PRELIMINARY WORKUP WAS SIGNIFICANT FOR CHEST X-RAY WITH INFILTRATES. PATIENT IS BEEN ADMITTED FOR FURTHER EVALUATION MANAGEMENT AND TREATMENT. EXAMINATION: XR chest 1V portable DATE: 12/08/2022 18:09 INDICATION: Dyspnea TECHNIQUE: frontal view of the chest was obtained. COMPARISON: Chest radiograph dated 05/07/2022 FINDINGS: Cardiomegaly with pulmonary vascular congestion. Diffuse increased interstitial pattern throughout all of the lung zones bilaterally. Airspace opacity at the left costophrenic angle. No pleural effusion or pneumothorax. Margin of the central pulmonary arteries consistent with pulmonary arterial hypertension. Likely old fracture at the anterior left sixth rib. IMPRESSION: 1. Likely congestive heart failure with cardiomegaly and pulmonary vascular congestion and mild diffuse pulmonary edema throughout both lungs. 2. Airspace opacity left costophrenic angle which could represent atelectasis or pneumonia. EXAMINATION: CT brain wo con DATE: 12/08/2022 19:48 INDICATION: Altered mental status TECHNIQUE: Computed tomography (CT) of the head was performed without intravenous contrast. Sagittal and coronal reconstructions were performed. The mA was adjusted according to patient size. Iterative reconstruction technique was employed. The dose-length product was 1210.67 mGy-cm. COMPARISON: head CT dated 03/16/2020 FINDINGS: No acute intracranial hemorrhage, acute infarction or abnormal extra axial fluid collection. There is mild scattered white matter hypoattenuation consistent with chronic small vessel ischemic disease. Symmetric prominence of the sulci and ventricles consistent with mild age-appropriate diffuse cerebral volume loss. No mass/mass effect. Moderate mucosal thickening at the bilateral frontal, ethmoid and maxillary sinuses. The orbits and mastoid air cells are normal. IMPRESSION: 1. No fracture or acute intracranial process. 2. Age-related changes including mild diffuse volume loss and mild scattered white matter hypoattenuation consistent with chronic small vessel ischemic disease. 3. Sinus disease. EKG Rate 108 IN 168 QRSd 100 QT 341 QTc 457 --[place]-- P 48 QRS 79 T 69 SINUS TACHYCARDIA POSSIBLE LEFT ATRIAL ENLARGEMENT [-0.1mV P WAVE IN V1/V2] ABNORMAL RHYTHM ECG COMPARED TO ECG 05/08/2022 08:28:34 SINUS TACHYCARDIA NOW PRESENT Electronically Signed On 12-08-2022 17:21:43 Review of Systems Review of Systems: ROS unobtainable: Yes unobtainable due to mental status (INITIALLY OBTUNDED) [facility] Past Medical History Medical History Active intravenous drug use Alcohol abuse Anxiety Arthritis Chronic venous stasis COPD (chronic obstructive pulmon
--- NOTE | 2022-12-08 21:46 | PC.NURSE ---
JANICE, Alejandra Rincon, and this nurse went in to educate the pt on the importance of staying in the hospital. Pt agrees to stay in hospital but refuses to wear BiPap. Alejandra and pt agree to use NC for oxygen. Pt placed on NC 5L, back on monitor and given sandwich.
[2022-12-08 22:03] LABS: Appearance Urine Clear (Clear); Bacteria Urine None Seen /hpf; Bilirubin Urine 1+ (Negative); Blood Urine Negative (Negative); Color Urine Dark Yellow (Yellow); Glucose Urine UA Negative (Negative); Ketones Urine Trace mg/dL (Negative); Leukocyte Esterase Ur Trace LEU/UL (Negative); Need Manual Microscopic Reviewed; Nitrate Urine Negative (Negative); Non Pathogenic Casts 0-2; Protein Urine 1+ mg/dL (Negative); Specific Grav Ur 1.029 (1.001-1.035); Squamous Epithelial Cell Urine Occasional /hpf (Few); WBC Urine 0-5 /hpf; pH Urine 6.5 (5.0-9.0)
[2022-12-08 22:04] LABS: Add Urine Microscopic? YES
[2022-12-08] MEDS: FUROSEMIDE INJ 40 MG/4 ML VIAL IV PUSH (22:04)
[2022-12-08 22:18] LABS: Amphetamine Screen Urine Positive (Negative); Barbiturate Screen Urine Negative (Negative); Benzodiazepines Screen Urine Positive (Negative); Cannabinoid Screen Urine Negative (Negative); Cocaine Screen Urine Positive (Negative); Methadone Screen Urine Negative (Negative); Opiate Screen Urine Negative (Negative); Phencyclidine Screen Urine Negative (Negative)
[2022-12-08 22:30] LABS: NT Pro B Type Natriuretic Pept 727 pg/mL (19.9-100)
[2022-12-09] VITALS (26 sets, daily range): BP systolic 119–144; BP diastolic 64–75; PULSE 78–99; RESP 16–26; TEMP 36.3–36.4; O2SAT 90–98
--- NOTE | 2022-12-09 | ECHO_ITS ---
Patient Info Name: Ozzy Ch Age: 62 years : 1960 Gender: Male Ht: 72 in Wt: 250 lbs BSA: 2.44 m2 HR: 99 bpm BP: 119 / 66 mmHg Heart Rhythm: Sinus Rhythm Technical Quality: Fair Exam Date: 12/09/2022 9:05 AM Exam Location: [facility] Patient Status: Inpatient Admit Date: 12/08/2022 Staff Ordering Physician: Steff Wright MD Farm Adviser: Brittany Crain RDCS Attending Provider: Steff Wright MD Referring Physician: Adriana VILLAGRAN; Exam Type: CA echo dop color flow w con Study Info Indications R06.02 - Shortness of breath Complete two-dimensional, color flow and Doppler transthoracic echocardiogram is performed with contrast to opacify the left ventricle and to improve the deliniation of the left ventricle endocardial borders. Contrast/Agitated Saline Contrast/Ag. Saline: Definity Amount: 3.00 ml Administered By: Brittany Crain RDCS Existing IV Access: Yes IV Access Condition: patent with no signs of infiltration Summary 1. Normal left ventricular size with mild left ventricular hypertrophy, and with good contractility of all segments. Ejection fraction greater than 70%. Normal diastolic function. 2. Right ventricle not well seen but appears to be mildly dilated and mildly hypokinetic. 3. Left atrial chamber dimension is mildly enlarged. 4. There is mild tricuspid valve regurgitation. 5. Mild pulmonary hypertension, estimated pulmonary arterial systolic pressure is 44 mmHg. 6. Technically difficult study; definity echo contrast used. 7. Normal sinus rhythm. Left Ventricle Left ventricular chamber dimension is normal. Left ventricular systolic function is normal, estimated at >70%. There is mildly increased left ventricular wall thickness. Left ventricular septal wall motion is normal. The left ventricular diastolic function is normal. Right Ventricle Right ventricular chamber dimension is mildly enlarged. Right ventricular systolic function is reduced. Left Atria Left atrial chamber dimension is mildly enlarged. Right Atria Right atrial chamber dimension is normal. Aortic Valve The aortic valve is trileaflet. There is mild aortic valve sclerosis. There is no aortic valve stenosis. There is no aortic valve regurgitation. Pulmonic Valve The pulmonic valve is normal. There is no pulmonic valve stenosis. There is no pulmonic regurgitation. Mitral Valve The mitral valve has normal leaflets. There is no mitral valve stenosis. There is trace mitral valve regurgitation. Tricuspid Valve The tricuspid valve leaflets are normal. There is no significant tricuspid valve stenosis. There is mild tricuspid valve regurgitation. Mild pulmonary hypertension, estimated pulmonary arterial systolic pressure is 44 mmHg. Pericardium/Pleural The pericardium appears normal. There is no pericardial effusion. Inferior Vena Cava Not well visualized inferior vena cava with >50% collapse upon inspiration consistent with Empty right atrial pressure, 10 mmHg. Aorta The aortic root size at the sinus of Valsalva is normal. The prox ascending aorta size is normal. Left Ventricular Outflow Tract Name Value Normal LVOT 2D LVOT Diameter 2.24 cm LVOT Doppler
--- NOTE | 2022-12-09 00:41 | ADMGEN ---
This patient, Ozzy Ch, was admitted to IMU Room 203-01 at 2346. Patient/family oriented to hospital policies and general routines including ID bracelet, bed and alarms, visiting hours, pain management, procedures, bathroom and other care routines, personal items, smoking policy, room service/diet, and visiting hours. Information on how to activate the Rapid Response Team has been discussed. Patient/Family are encouraged to report perceived risks to care and to ask questions if they do not understand what they are told or what they should do.
[2022-12-09] MEDS: IPRATROPIUM BR 0.02% INH SOLN 0.5 MG/2.5 ML VIAL INHALATION ×5 (04:18→21:43)
[2022-12-09] MEDS: ALBUTEROL SULFATE NEB 2.5 MG/3 ML INH INHALATION ×5 (04:18→21:43)
[2022-12-09] MEDS: methylPREDNISolone SOD SUCC 125 MG VIAL 60 MG IV PUSH ×4 (06:44→23:58)
[2022-12-09] MEDS: PERFLUTREN LIPID MICROSPHERES 1.5 ML VIAL DILUTED TO 10 ML TOTAL VOLUME IV PUSH (09:40)
--- NOTE | 2022-12-09 10:06 | IVDEFINITY ---
Prior to administration of IV Definity the patient was educated on the risks and benefits of the imaging enhancing agent including potential adverse side effects. The patient verbalized understanding. Allergies were verified. No exclusion criteria were identified and at least one of the following inclusion criteria were met: 1) physician request, 2) patient technically difficult to image (per the [place] [employer] guidelines of two or more segments not discernable within the apical view), or 3) questionable left ventricular function. ?
--- NOTE | 2022-12-09 11:27 | PM.IMPN ---
Progress Note: A&P Assessment and Plan (1) Acute hypercapnic respiratory failure: Code(s): J96.02 - Acute respiratory failure with hypercapnia Status: Acute Assessment and Plan: ADMIT TO IMU CURRENTLY ON SUPPLEMENTAL OXYGEN 5 L BY NASAL CANNULA TRY AND KEEP OXYGEN SATURATION IN BETWEEN 92-94% PATIENT WITH SEVERE COPD ACCORDING TO RECENT PFTS STUDIES OFF BIPAP AT THIS TIME ABG REVIEWED (2) Pneumonia: Qualifiers: Laterality: left Lung location: lower lobe of lung Pneumonia type: due to unspecified organism Qualified Code(s): J18.9 - Pneumonia, unspecified organism Code(s): J18.9 - Pneumonia, unspecified organism Status: Acute Assessment and Plan: PATIENT STARTED ON CEFTRIAXONE AND ZITHROMAX AWAIT CULTURES (3) Active intravenous drug use: Code(s): F19.90 - Other psychoactive substance use, unspecified, uncomplicated Status: Acute Assessment and Plan: WILL OBTAIN ECHOCARDIOGRAM IN A.M. PATIENT DENIES ANY FEVERS RIGORS OR CHILLS (4) Tobacco abuse disorder: Code(s): Z72.0 - Tobacco use Status: Acute Assessment and Plan: NICOTINE PATCH NEEDED PATIENT TRYING TO QUIT DOWN TO 10 CIGARETTES DAILY (5) Alcohol abuse: Code(s): F10.10 - Alcohol abuse, uncomplicated Status: Acute Assessment and Plan: CIWA NEEDED (6) COPD exacerbation: Code(s): J44.1 - Chronic obstructive pulmonary disease with (acute) exacerbation Status: Acute Assessment and Plan: HIGH-RESOLUTION CT IN PROGRESS BREATHING TREATMENTS Q.4 HOURS SYSTEMIC STEROIDS Subjective Date/time seen: 12/09/22 11:27 Interval history: no new issues Exam Narrative: PATIENT IS SITTING BY THE EDGE OF THE STRETCHER Const: General: cooperative, comfortable, no acute distress (SUPPLEMENTAL OXYGEN ON 5 L BY NASAL CANNULA), well developed, alert, awake, Physically active, ill appearing chronically, tired appearing, average body habitus, overweight and edematous (BILATERAL LOWER EXTREMITY) Nutritional Appearance: average body habitus, overweight and edematous (BILATERAL LOWER EXTREMITY) Orientation/consciousness: patient oriented x3 HENMT: Head: normal to inspection, normocephalic and atraumatic Ears: hearing grossly normal bilaterally Face/Nose/Sinus: normal facial exam Face and sinus: normal facial exam Eyes: General: appearance normal, both eyes and all related structures Pupils: Equal, round and reactive pupils present EOM: EOMs intact bilaterally Neck: Neck: full ROM, no lymphadenopathy and no JVD Thyroid: thyroid normal Lymphatic: no lymphadenopathy noted Resp: Effort & Inspection: normal respiratory effort and able to speak in complete sentences Auscultation: crackles bilateral, wheezes scattered wheezes and diminished lung sounds bilateral and diffuse Cardio: Jugular venous distension: no JVD Rate: regular rate Rhythm: regular rhythm Heart sounds: S1 normal heart sound present and S2 normal heart sound present GI: Inspection: obesity : General: Yes deferred Skin: Other: BILATERAL LOWER EXTREMITY CHRONIC SKIN CHANGES AND BECAUSE DISCOLORATION SECONDARY TO CHRONIC VENOUS STASIS Neuro: General: patient oriented x3 and CN's II-XI intact bilaterally Cranial nerves: Yes CN's II-XII intact bilaterally and Yes Equal, round and reactive pupils present Cognition (Neuro): normal cognition Speech: normal speech Gait exam (Neuro): Normal gait present Motor exam (neuro): 5/5 motor strength present throughout Extrem: General: normal gait and edema bilateral (4+) Objective Data Vital Signs Vital Signs: Vital Signs - 24 hr 12/08/22 17:19 12/08/22 17:33 12/08/22 17:53 Temperature 98.8 F Pulse Rate 106 H 100 Respiratory Rate 22 H 21 H Blood Pressure 122/68 Pulse Oximetry 65 L 92 Oxygen Delivery Room Air Nasal Cannula Oxygen Flow Rate 6 12/08/22 17:40 12/08/22 18:10 12/08/22 17:30 Temperature Pu
[2022-12-09] MEDS: ROSUVASTATIN 5 MG TABLET PO (11:28)
[2022-12-09] MEDS: FOLIC ACID 1 MG TABLET PO (11:28)
[2022-12-09] MEDS: ENOXAPARIN 40 MG/0.4 ML SYRINGE SUB-Q (11:28)
[2022-12-09] MEDS: THIAMINE HCL 100 MG TABLET PO (11:28)
[2022-12-09] MEDS: ASPIRIN 81 MG ENTERIC TABLET PO (11:28)
[2022-12-09] MEDS: cefTRIAXone 2 GM/NS 100 ML 2 GM/100 ML BAG IVPB (11:28)
[2022-12-09] MEDS: NICOTINE (*PBKC) 14 MG PATCH 1 PATCH TRANSDERM (13:15)
[2022-12-09] MEDS: QUEtiapine FUMARATE 100 MG TABLET PO (20:59)
[2022-12-09] MEDS: AZITHROMYCIN 500 MG/NS 250 ML 500 MG/250 ML BAG 250 MG IVPB (20:59)
[2022-12-09] MEDS: LORazepam INJ (*CRX) 2 MG/ML VIAL 1 MG IV PUSH (22:35)
[2022-12-10] VITALS (22 sets, daily range): BP systolic 130–157; BP diastolic 75–84; PULSE 80–108; RESP 12–22; TEMP 36.4–36.6; O2SAT 85–100
[2022-12-10] MEDS: ALBUTEROL SULFATE NEB 2.5 MG/3 ML INH INHALATION ×4 (00:43→12:20)
[2022-12-10] MEDS: IPRATROPIUM BR 0.02% INH SOLN 0.5 MG/2.5 ML VIAL INHALATION ×4 (00:43→12:20)
[2022-12-10] MEDS: methylPREDNISolone SOD SUCC 125 MG VIAL 60 MG IV PUSH ×2 (05:47→12:59)
[2022-12-10] MEDS: ASPIRIN 81 MG ENTERIC TABLET PO (09:42)
[2022-12-10] MEDS: ENOXAPARIN 40 MG/0.4 ML SYRINGE SUB-Q (09:43)
[2022-12-10] MEDS: cefTRIAXone 2 GM/NS 100 ML 2 GM/100 ML BAG IVPB (09:43)
[2022-12-10] MEDS: NICOTINE (*PBKC) 14 MG PATCH 1 PATCH TRANSDERM (09:44)
[2022-12-10] MEDS: FOLIC ACID 1 MG TABLET PO (09:44)
[2022-12-10] MEDS: THIAMINE HCL 100 MG TABLET PO (09:45)
[2022-12-10] MEDS: ROSUVASTATIN 5 MG TABLET PO (09:45)
[2022-12-10] MEDS: BUPRENORPHINE/NALOXONE (*CRX) 4 MG/1 MG SL FILM 2 EACH SUBLINGUAL ×2 (09:46→12:59)
--- NOTE | 2022-12-10 09:46 | HOMEO2EVAL ---
Evaluation was performed at [facility] Home Oxygen Evaluation RC: Home Oxygen (O2) Evaluation Start: 12/10/22 08:40 Freq: ONCE Status: Active Protocol: RPE Activity Type Activity Date Activity User E-sign Co-sign Detail Recorded Client Recorded Date Recorded By Document 12/10/22 08:40 [email or web address] [email or web address] 12/10/22 09:46 DJO Document 12/10/22 08:45 [email or web address] [email or web address] 12/10/22 09:46 DJO Document 12/10/22 08:50 [email or web address] [email or web address] 12/10/22 09:46 DJO Document 12/10/22 08:55 [email or web address] [email or web address] 12/10/22 09:46 DJO Document 12/10/22 09:00 [email or web address] [email or web address] 12/10/22 09:46 DJO Document 12/10/22 09:05 [email or web address] [email or web address] 12/10/22 09:46 DJO Document 12/10/22 09:15 [email or web address] [email or web address] 12/10/22 09:46 DJO 12/10/22 12/10/22 12/10/22 08:40 08:45 08:50 Home O2 Evaluation [Oxygen] -Test Phase Resting Resting Resting -Oxygen Delivery Room Air Nasal Cannula Nasal Cannula -Oxygen Flow Rate (L/min) 1 2 [Pulse Oximetry] -Pulse Oximetry (90-100 %) 85 L 86 L 87 L [Pulse Rate] -Pulse Rate (60-100 beats/min) 98 97 94 [Evaluation] -Activity Tolerance [Charges] -Treatment Charges O2 Evaluation - Inpatient 12/10/22 12/10/22 12/10/22 08:55 09:00 09:05 Home O2 Evaluation [Oxygen] -Test Phase Resting Resting Exercise -Oxygen Delivery Nasal Cannula Nasal Cannula Nasal Cannula -Oxygen Flow Rate (L/min) 3 4 4 [Pulse Oximetry] -Pulse Oximetry (90-100 %) 87 L 91 90 [Pulse Rate] -Pulse Rate (60-100 beats/min) 92 88 108 H [Evaluation] -Activity Tolerance Poor [Charges] -Treatment Charges 12/10/22 09:15 Home O2 Evaluation [Oxygen] -Test Phase Resting -Oxygen Delivery Nasal Cannula -Oxygen Flow Rate (L/min) 4 [Pulse Oximetry] -Pulse Oximetry (90-100 %) 91 [Pulse Rate] -Pulse Rate (60-100 beats/min) 89 [Evaluation] -Activity Tolerance [Charges] -Treatment Charges
--- NOTE | 2022-12-10 11:52 | PM.DS ---
DS: Admitting Diagnosis Discharge Date December 10, 2022 Admitting Diagnosis Pneumonia, COPD exacerbation, chronic smoker, chronic drug use DS: Discharge Diagnosis Discharge Diagnosis (1) Acute hypercapnic respiratory failure: Code(s): J96.02 - Acute respiratory failure with hypercapnia Status: Acute Assessment and Plan: severe copd (2) Pneumonia: Qualifiers: Laterality: left Lung location: lower lobe of lung Pneumonia type: due to unspecified organism Qualified Code(s): J18.9 - Pneumonia, unspecified organism Code(s): J18.9 - Pneumonia, unspecified organism Status: Acute Assessment and Plan: PATIENT STARTED ON CEFTRIAXONE AND ZITHROMAX AWAIT CULTURES (3) Active intravenous drug use: Code(s): F19.90 - Other psychoactive substance use, unspecified, uncomplicated Status: Acute Assessment and Plan: WILL OBTAIN ECHOCARDIOGRAM IN A.M. PATIENT DENIES ANY FEVERS RIGORS OR CHILLS (4) Tobacco abuse disorder: Code(s): Z72.0 - Tobacco use Status: Acute Assessment and Plan: NICOTINE PATCH NEEDED PATIENT TRYING TO QUIT DOWN TO 10 CIGARETTES DAILY (5) Alcohol abuse: Code(s): F10.10 - Alcohol abuse, uncomplicated Status: Acute Assessment and Plan: CIWA NEEDED (6) COPD exacerbation: Code(s): J44.1 - Chronic obstructive pulmonary disease with (acute) exacerbation Status: Acute Assessment and Plan: HIGH-RESOLUTION CT IN PROGRESS BREATHING TREATMENTS Q.4 HOURS SYSTEMIC STEROIDS DS: Summary Hospital Course Hospital Course: Patient is 62-year-old and has a history of chronic drug use and chronic smoker. He is still smoking. He came in with some shortness of breath and had to be on oxygen. He spent 1 night on BiPAP. He was started on antibiotics and has done okay. He appears to be a okay from a respiratory standpoint today. He reports he is at his baseline breathing. He reports he is chronically short of breath at home. We had him evaluated for home oxygen and he will be sent home on oxygen. Smoking cessation and drug cessation counseled to the patient. Will be sent home on oral antibiotics and oral prednisone. Otherwise he can be discharged. Time Spent with Patient Time attestation: Total time spent providing and/or coordinating discharge services: Exam Narrative: PATIENT IS SITTING BY THE EDGE OF THE STRETCHER Const: General: cooperative, comfortable, no acute distress (SUPPLEMENTAL OXYGEN ON 5 L BY NASAL CANNULA), well developed, alert, awake, Physically active, ill appearing chronically, tired appearing, average body habitus, overweight and edematous (BILATERAL LOWER EXTREMITY) Nutritional Appearance: average body habitus, overweight and edematous (BILATERAL LOWER EXTREMITY) Orientation/consciousness: patient oriented x3 HENMT: Head: normal to inspection, normocephalic and atraumatic Ears: hearing grossly normal bilaterally Face/Nose/Sinus: normal facial exam Face and sinus: normal facial exam Eyes: General: appearance normal, both eyes and all related structures Pupils: Equal, round and reactive pupils present EOM: EOMs intact bilaterally Neck: Neck: full ROM, no lymphadenopathy and no JVD Thyroid: thyroid normal Lymphatic: no lymphadenopathy noted Resp: Effort & Inspection: normal respiratory effort and able to speak in complete sentences Auscultation: crackles bilateral, wheezes scattered wheezes and diminished lung sounds bilateral and diffuse Cardio: Jugular venous distension: no JVD Rate: regular rate Rhythm: regular rhythm Heart sounds: S1 normal heart sound present and S2 normal heart sound present GI: Inspection: obesity : General: Yes deferred Skin: Other: BILATERAL LOWER EXTREMITY CHRONIC SKIN CHANGES AND BECAUSE DISCOLORATION SECONDARY TO CHRONIC VENOUS STASIS Neuro: General: patient oriented x3 and CN's II-XI intact bilaterally Cranial nerves: Yes C
== END 2022-12-10 14:16 | disposition home or self-care (01) ==
LOC: ANHED 21:49 → ANHIMU 23:23
PROVIDERS: Emergency Medicine; Admitting Provider Internal Medicine; Emergency Provider Physician Assistant; PCP Physician Assistant; Visit Provider Chiropractor
DX: J96.02 Acute respiratory failure with hypercapnia (principal); R41.82 Altered mental status, unspecified; J18.9 Pneumonia, unspecified organism; I11.0 Hypertensive heart disease with heart failure; I50.9 Heart failure, unspecified; J44.1 Chronic obstructive pulmonary disease with (acute) exacerbation; I87.8 Other specified disorders of veins; I89.0 Lymphedema, not elsewhere classified; F41.9 Anxiety disorder, unspecified; E78.5 Hyperlipidemia, unspecified; E66.9 Obesity, unspecified; Z20.822 Contact with and (suspected) exposure to COVID-19; Z68.35 Body mass index [BMI] 35.0-35.9, adult; R05.9 Cough, unspecified; F32.A Depression, unspecified; R94.31 Abnormal electrocardiogram [ECG] [EKG]; Z91.148 Patient's other noncompliance with medication regimen for other reason; F17.210 Nicotine dependence, cigarettes, uncomplicated; Z79.51 Long term (current) use of inhaled steroids; F11.10 Opioid abuse, uncomplicated; F10.10 Alcohol abuse, uncomplicated; F14.90 Cocaine use, unspecified, uncomplicated; Y90.0 Blood alcohol level of less than 20 mg/100 ml; Z79.82 Long term (current) use of aspirin; Z79.899 Other long term (current) drug therapy; Z82.49 Family history of ischemic heart disease and other diseases of the circulatory system
CPT/HCPCS: 36415; 36600; 70450; 71045; 71250; 80053; 80307; 81001; 82375; 82805; 83050; 83605; 83690; 83880; 85025; 87040; 87636; 93005; 94002; 94003; 94618; 94640; 96365; 96367; 96372; 96374; 96375; 96376; 99285; A9270; C8929; G0378; G0379; J0456; J0696; J1650; J1940; J2060; J2930; Q9957

== ENCOUNTER 2024-01-04 08:02 | Emergency (ER) | payer OTHER, SELFPAY ==
--- NOTE | ~2024-01-04 | CT_ITS ---
EXAMINATION: CT brain wo con DATE: 01/04/2024 09:40 INDICATION: Head injury. TECHNIQUE: Computed tomography (CT) of the head was performed without intravenous contrast. The mA wa s adjusted according to patient size. Iterative reconstruction technique was employed. The dose-lengt h product was 681.00 mGy-cm. COMPARISON: Head CT 12/08/2022 FINDINGS: There are scattered areas of low attenuation in the cerebral white matter. There is no intr acranial hemorrhage, acute infarction, or abnormal intracranial mass lesion. The ventricles are renato l in size. The orbits are normal. There is extensive dental disease. There is mucosal thickening in t he paranasal sinuses. There is thickening and sclerosis of the lozano of the maxillary sinuses, consis tent with chronic sinusitis. The mastoid air cells are normal. IMPRESSION: 1. Stable mild nonspecific cerebral white matter disease, which likely represents chronic small vesse l ischemic disease. 2. Chronic sinusitis. Reviewed, dictated and finalized at location A. IMPRESSION: 1. Stable mild nonspecific cerebral white matter disease, which likely represen ts chronic small vessel ischemic disease. 2. Chronic sinusitis.
--- NOTE | ~2024-01-04 | CT_ITS ---
EXAMINATION: CT facial & cervical spine wo DATE: 01/04/2024 09:40 INDICATION: Head injury. TECHNIQUE: Computed tomography (CT) of the maxillofacial region and cervical spine was performed with out intravenous contrast. Automated exposure control and iterative reconstruction technique were empl oyed. The dose-length product was 1063.86 mGy-cm. COMPARISON: Head CT 12/08/2022 FINDINGS: MAXILLOFACIAL CT: There is mucosal thickening in the paranasal sinuses. There is leftward deviation of the nasal septum . There are old fracture deformities of the nasal bones. There is mucosal thickening in the paranasal sinuses. There are erosions and sclerosis of some of the lozano of the paranasal sinuses, consistent with chronic sinusitis. There is an old fracture of floor of left orbit. There is extensive dental di sease. CERVICAL SPINE CT: There is 12 degrees dextroscoliosis of cervical spine. There is kyphosis of cervical spine. There is 2 mm anterolisthesis of C4 on C5. There is mild chronic anterior wedging of C5-C7 vertebral bodies. T here is mildly decreased disc height at C3-C4 and C4-C5, severely decreased disc height at C5-C6 and C6-C7, and mildly decreased disc height at C7-T1. Emphysema is noted. The following disc levels are s pecifically discussed: C2-C3: There is ankylosis of left uncovertebral joint with mild hypertrophy. There is ankylosis of th e facet facet joints with moderate hypertrophy. There is mild right and moderate left neural foramina l stenosis. There is mild central canal stenosis. C3-C4: There is moderate right uncovertebral joint osteoarthritis. There is severe bilateral facet moncho int osteoarthritis. There is mild bilateral neural foraminal stenosis. There is no central canal sten osis. C4-C5: There is severe left uncovertebral joint osteoarthritis. There is severe bilateral facet joint osteoarthritis. There is mild right and moderate left neural foraminal stenosis. There is mild centr al canal stenosis. C5-C6: There is severe bilateral uncovertebral joint osteoarthritis. There is mild bilateral facet moncho int osteoarthritis. There is moderate right and mild left neural foraminal stenosis. There is mild ce ntral canal stenosis. C6-C7: There is severe bilateral uncovertebral joint osteoarthritis. There is mild right and moderate left facet joint osteoarthritis. There is mild bilateral neural foraminal stenosis. There is mild ce ntral canal stenosis. C7-T1: There is no uncovertebral joint osteoarthritis. There is moderate bilateral facet joint osteoa rthritis. There is mild bilateral neural foraminal stenosis. There is no central canal stenosis. IMPRESSION: 1. No acute fracture. 2. Chronic sinusitis. 3. Extensive dental disease. 4. Severe cervical spondylosis. Reviewed, dictated and finalized at location A.
[2024-01-04 08:00] VITALS: BP 155/93; PULSE 95; RESP 18; O2SAT 100
[2024-01-04 08:11] VITALS: BP 155/93; PULSE 99; RESP 24; O2SAT 96
[2024-01-04 09:00] VITALS: BP 161/95; PULSE 101; RESP 16; O2SAT 98
[2024-01-04 10:00] VITALS: BP 176/95; PULSE 96; RESP 13; O2SAT 98
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
--- NOTE | 2024-01-04 11:25 | PC.NURSE ---
SPOKE WITH WHIT COLMENARES AT [phone] WHO STATES HE WILL BE HERE IN APPROX 20 MINUTES TO PICK HIS DAD UP.
== END 2024-01-04 11:30 | disposition home or self-care (01) ==
PROVIDERS: Emergency Provider Emergency Medicine; PCP Physician Assistant
DX: S00.83XA Contusion of other part of head, initial encounter (principal); W19.XXXA Unspecified fall, initial encounter; F10.10 Alcohol abuse, uncomplicated; Z99.81 Dependence on supplemental oxygen; F41.8 Other specified anxiety disorders; J44.9 Chronic obstructive pulmonary disease, unspecified; E78.5 Hyperlipidemia, unspecified; I10 Essential (primary) hypertension; F17.210 Nicotine dependence, cigarettes, uncomplicated
CPT/HCPCS: 70450; 70486; 72125; 99284

== ENCOUNTER 2024-07-10 19:15 | Inpatient (IN) | payer MEDICAID, SELFPAY ==
--- NOTE | ~2024-07-10 | XR_ITS ---
EXAMINATION: XR chest 1V portable Exam Date/Time: 07/10/2024 20:12 CDT HISTORY: SOB Comparison: X-ray chest 12/08/2022;. RESULT: Lines, tubes, and devices: None. Lungs and pleura: Leftward rotation. Mild diffuse reticular opacities. Subsegmental right and segment al left peripheral and basilar opacities with bilateral costophrenic angle blunting. Emphysematous ch to. Cardiomediastinal silhouette: Stable. Other: No acute osseous or upper abdominal finding. IMPRESSION: Segmental left and subsegmental right basilar atelectasis/consolidation. Possible small bilateral ple ural effusions. Mild interstitial edema overlying emphysematous changes. Reviewed, dictated and finalized at location K. IMPRESSION: Segmental left and subsegmental right basilar atelectasis/consolidation. Possib le small bilateral pleural effusions. Mild interstitial edema overlying emphyse matous changes.
--- NOTE | ~2024-07-10 | CT_ITS ---
EXAMINATION: CTA chest PE protocol DATE: 07/10/2024 21:55 INDICATION: SOB; Dimer >1; hypoxia to 74% TECHNIQUE: Computed tomography angiography (CTA) of the chest was performed with 100 mL Omnipaque-350 intravenous contrast timed to evaluate the pulmonary arteries. Coronal maximum intensity projection 3D-reconstructions were created by the technologist. The dose-length product (DLP) was 1014.06 mGy-cm . Automated exposure control and iterative reconstruction technique were employed. COMPARISON: 12/09/2022. FINDINGS: Lung parenchyma and airways: Bilateral dependent subsegmental atelectasis/consolidation. Septal thick ening. Diffuse ground glass opacities. Emphysematous change. Peribronchial thickening. Scattered airw ay debris in the bilateral lower lobes. Pleura: Unremarkable. Thoracic inlet, axillae and chest wall: Bilateral gynecomastia. Thoracic aorta: No significant dilation. No dissection. Mediastinum: Dilated central pulmonary arteries as can be seen with pulmonary hypertension. Heart and pericardium: Cardiomegaly. Coronary artery calcifications: Moderate. Upper abdomen: No significant finding. Bones: No acute osseous finding. Pulmonary arteries: Study quality: Mild motion artifact which does limit evaluation of subsegmental p ulmonary arteries. No pulmonary emboli detected in the adequately visualized pulmonary vessels. IMPRESSION: No CT evidence of acute pulmonary embolus, noting suboptimal evaluation of the subsegmental pulmonary arteries. Mild pulmonary edema, overlying chronic emphysematous change. Subsegmental bibasilar atelectasis/consolidation. The presence of airway debris could indicate a comp onent of aspiration. Mediastinal lymphadenopathy. Reviewed, dictated and finalized at location K. IMPRESSION: No CT evidence of acute pulmonary embolus, noting suboptimal evaluation of the subsegmental pulmonary arteries. Mild pulmonary edema, overlying chronic emphysematous change. Subsegmental bibasilar atelectasis/consolidation. The presence of airway debris could indicate a component of aspiration. Mediastinal lymphadenopathy.
--- NOTE | 2024-07-10 19:19 | ECG_ITS ---
Test Date: 2024-07-10 19:34:37 Measurements Intervals [place] Rate: 96 P: 32 [place]: 194 QRS: 43 QRSD: 110 T: 55 QT: 377 QTc: 477 Interpretive Statements SINUS RHYTHM INCOMPLETE RIGHT BUNDLE BRANCH BLOCK No previous ECG available for comparison Electronically Signed On 07-11-2024 12:47:22 CDT by Silverio Gusman M.D.
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
--- OUTSIDE RECORDS SUMMARY | 2024-07-10 19:19 | XMS_ITS ---
Author Organization [facility] Address [address] [place] [address] Care Team Providers Care Aerologist Name Role Phone Roney Zurita Primary Care Provider BriellehosseinArabella Unavailable [phone] REASON FOR VISIT Walk-In Medications Medication SIG (Take, Route, Frequency, Duration) Notes Start Date End Date Status Atorvastatin Calcium 40 MG 1 tablet Orally Once a day Active Vitamin B-1 100 MG 1 tablet Orally Once a day Active Nicotine Polacrilex 4 MG 1 piece chew for 30 minutes as needed Mouth/Throat every 1-2 hours for 30 days As needed for smoking cessation, up to 16 pieces per day 05/01/2024 Active Albuterol Sulfate HFA 108 (90 Base) MCG/ACT 1 puff as needed Inhalation every 4 hrs Active Doxepin HCl 25 MG 1 capsule at bedtime Orally Once a day for 10 days Active Lopressor 50 MG 1 tablet with food Orally Twice a day Active Ibuprofen 600 MG 1 tablet with food or milk as needed Orally every 12 hrs Active Lasix 40 MG 1 tablet Orally Once a day [facility] Active Aspirin 81 81 MG 1 tablet Orally Once a day Active Buprenorphine HCl-Naloxone HCl 12-3 MG 1 film under the tongue and allow to dissolve Sublingual three times daily 07/06/2024 Active Social History Sex Assigned At : Social History Observation Description Sex Assigned At Male Vital Signs BMI 38.16 kg/m2 07/06/2024 Oximetry 92 % 07/06/2024 Weight 266.0 lbs 07/06/2024 Height 70 in 07/06/2024 Blood pressure systolic 162 mm Hg 07/07/19 25 Blood pressure diastolic 88 mm Hg 025 Heart Rate 111 /min 07/06/2024 Respiratory Rate 16 /min 07/06/2024 Encounters Encounter Location Date Provider Diagnosis [facility] [place] [address] 07/06/2024 Arabella [place] Opioid use disorder F11.90 and Nutritional counseling Z71.3 Assessments Encounter Date Diagnosis (ICD Code) Assessment Notes Treatment Notes Treatment Clinical Notes Section Notes 07/06/2024 Opioid use disorder (ICD-10 - F11.90) 07/06/2024 Nutritional counseling (ICD-10 - Z71.3) 07/06/2024 Other Follow up with PCP for elevated BP. Denies acute symptoms. ER precautions discussed. Patient agrees to take medication as prescribed. Discussed medication side effects, adverse effects, risks, benefits, as well as interactions. Encouraged non-use of opioids and other illicit substances. Has naloxone. Discontinuing buprenorphine increases the risk of overdose upon return to illicit opioid use. Use of alcohol or benzodiazepines with buprenorphine increases the risk of overdose and . Education provided about safe storage of medications. Encouraged participation in recovery groups/counseling services. Contact office with questions or concerns. Patient may self-administe r their own medications or may self-administe r their own oral medications per [facility] Protocol. Plan Of Treatment Medication Medication Name Sig Start Date Stop Date Notes Buprenorphine HCl-Naloxone H Cl 12-3 MG 1 film under the tongue and allow to dissolve Sublingual three times daily 07/06/2024 Treatment Notes Assessment Notes Other Follow up with PCP for elevated BP. Denies acute symptoms. ER precautions discussed. Patient agrees to take medication as prescribed. Discussed medication side effects, adverse effects, risks, benefits, as well as interactions. Encouraged non-use of opioids and other illicit substances. Has naloxone. Discontinuing buprenorphine increases the risk of overdose upon return to illicit opioid use. Use of alcohol or benzodiazepines with buprenorphine increases the risk of overdose and . Education provided about safe storage of medications. Encouraged participation in recovery groups/counseling services. Contact office with questions or concerns. 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 Medication Monitoring and Risk Mitigation U p-to-date on ASAM recommended lab testing? N o, P rescribed a buprenorphine product? Y es, H as patient had a buprenorphine and metabolite lab ordered/collected? Y es (see notes for date of last metabolite testing), D ate of last buprenorphine and metabolite 0 05/01/2024, P rescription Drug Monitoring Program Review Y es. No concerns at this time., P octavia to address any concerns identified: N o concerns identified. Will continue treatment plan as is.. C ravings, Setbacks, Substance use, and Stressors C ravings since last visit: N o. Patient denies cravings since last visit., S etbacks since last visit? N o, patient denies setbacks since last visit., M isuse of substances since last visit: N o, patient denies., S tressors N o, patient denies stressors at this time.. W ithdrawal and Intoxication Symptoms I ntoxication Symptoms: N o signs of intoxication are present during visit., W ithdrawal Symptoms: N o withdrawal signs are present during visit.. M ental Health, Support System, and Social Determinants M ental Health Status S table., S upport Systems Include: P ersonal support system (see notes)., C ourt System Involvement? N o, H ousing Stability: S table and safe housing., C urrently employed? S ocial Security/disability., R eferrals needed: N o referrals needed at this time.. R ecommended Wellness and Prevention Follow-up R ecommended Wellness and Prevention reviewed: Y es. No additional orders/actions needed at this time..?Other concerns: O ther Concerns? N o., N arcan need N o. Patient already has Narcan.. D epression Screening: PHQ-9 L ittle interest or pleasure in doing things N ot at all, F eeling down, depressed, or hopeless N ot at all, T rouble falling or staying asleep, or sleeping too much N ot at all, F eeling tired or having little energy N ot at all, P oor appetite or overeating N ot at all, F eeling bad about yourself or that you are a failure, or have let yourself or your family down N ot at all, T rouble concentrating on things, such as reading the newspaper or watching television N ot at all, M oving or speaking so slowly that other people could have noticed; or the opposite, being so fidgety or restless that you have been moving around a lot more than usual N ot at all, T houghts that you would be better off or of hurting yourself in some way N ot at all, T otal Score 0 . S creening: [place] Suicide Severity Rating Scale (LF) D o you want to initiate with S creener form, 1 . Wish to be : Have you wished you were or wished you could go to sleep and not wake up? N o, 2 . Suicidal Thoughts: Have you actually had any thoughts of killing yourself? N o, 6 . Suicide Behavior Question: Have you ever done anything,started to do anything, or prepared to end your life? N o, I nterpretation: L ow Risk. C SSRS Interpretation and Follow Up Plan: CSSRS Interpretation and Follow Up Plan C SSRS Screen documented using SF Y es, R isk Disposition from SF L ow - No Follow Up Plan Required, F ollow Up Plan N o Follow Up Plan required at this time., T imeframe of Screening T katharine.? P reventative Health and Wellness follow-up: Action Plans for Clinical Quality Measures: C olorectal Cancer Screening: N ot addressed during this visit. See notes for details.. . * ROS: B asic ROS: Denies C onstipation. D enies S ubstance Abuse.? * Medical History: * Surgical History: N o Surgical History documented. * Hospitalization/Major Diagno stic Procedure: 0 07/2021 alcohol & fentanyl w/d 07/2021knee injury - [facility] 05/01/2021neumonia 2022spiked drink oma-Stitzer 12/2023 * Family History: F ather: . M other: . 1 brother(s) , 2 sister(s) - healthy. 3 son(s) , 2 daughter(s) - healthy. . * Social History: P rimary Social History: L iving Arrangement L iving Arrangement: I ndependent Living, I s this a supportive environment? Y es. A lcohol Use A lcohol Use Frequency: N ever. I llicit Substance Usage I llicit Substance Usage: Y es Sober x 3 weeks, S ubstance Used: H eroin Last heroin use over 1 year ago. Reports he currently takes suboxone, but needs to get back up to full strength , F requency Heroin is used: 15-20 buttons daily, I nterested in quitting: Y es. E mployment Status E mployment Status: O n Disability. * Medications: T akingBuprenorphine HCl-Naloxone HCl 12-3 MG Film 1 film under the tongue and allow to dissolve Sublingual three times daily Doxepin HCl 25 MG Capsule 1 capsule at bedtime Orally Once a day Albuterol Sulfate HFA 108 (90 Base) MCG/ACT Aerosol Solution 1 puff as needed Inhalation every 4 hrs Nicotine Polacrilex 4 MG Gum 1 piece chew for 30 minutes as needed Mouth/Throat every 1-2 hours As needed for smoking cessation, up to 16 pieces per dayVitamin B-1 100 MG Tablet 1 tablet Orally Once a day Atorvastatin Calcium 40 MG Tablet 1 tablet Orally Once a day Lopressor 50 MG Tablet 1 tablet with food Orally Twice a day Aspirin 81 81 MG Tablet Delayed Release 1 tablet Orally Once a day Lasix 40 MG Tablet 1 tablet Orally Once a day , Notes to Pharmacist: Hoang Kateuprofen 600 MG Tablet 1 tablet with food or milk as needed Orally every 12 hrs Medication List reviewed and reconciled with the patientTaking Buprenorphine HCl-Naloxone HCl 12-3 MG Film 1 film under the tongue and allow to dissolve Sublingual three times daily Taking Doxepin HCl 25 MG Capsule 1 capsule at bedtime Orally Once a day Taking Albuterol Sulfate HFA 108 (90 Base) MCG/ACT Aerosol Solution 1 puff as needed Inhalation every 4 hrs Taking Nicotine Polacrilex 4 MG Gum 1 piece chew for 30 minutes as needed Mouth/Throat every 1-2 hours As needed for smoking cessation, up to 16 pieces per dayTaking Vitamin B-1 100 MG Tablet 1 tablet Orally Once a day Taking Atorvastatin Calcium 40 MG Tablet 1 tablet Orally Once a day Taking Lopressor 50 MG Tablet 1 tablet with food Orally Twice a day Taking Aspirin 81 81 MG Tablet Delayed Release 1 tablet Orally Once a day Taking Lasix 40 MG Tablet 1 tablet Orally Once a day , Notes to Pharmacist: Hoang Morelos Ibuprofen 600 MG Tablet 1 tablet with food or milk as needed Orally every 12 hrs Medication List reviewed and reconciled with the patient * Allergies: n o[Allergies Verified] Objective: * Vitals: I nitials: dt, Wt:266.0, Ht: 70, BMI:38.16, BP:162/88, HR:111, Oxygen sat %:92, RR:16, Pain scale:7. * Examination: A [facility] Physical Assessment: Intoxication and Withdrawal signs I ntoxication signs N o signs of intoxication are present during examination.Withdrawal Signs N o withdrawal signs are present during examination.. G eneral Examination: GENERAL APPEARANCE: a lert, pleasant, in no acute distress.? PSYCH: a lert, oriented x4, speech clear. ? Assessment: * Assessment: 1. O pioid use disorder - F11.90 (Primary) 2 . N utritional counseling - Z71.3 Plan: * Treatment: Value Reference Range T HC neg * C OC neg * M OP (OPI) neg * A MP neg * M ET neg * B AR neg * B ZO neg * M DMA neg * M TD neg * O XY neg * P CP neg * B UP POS 2.?Others? Notes:Follow up with PCP for elevated BP. Denies acute symptoms. ER precautions discussed. Patient agrees to take medication as prescribed. Discussedmedication side effects, adverse effects,risks, benefits, as well asinteractions. Encouraged non-use of opioids and other illicit substances. Hasnaloxone. Discontinuing buprenorphine increases the risk of overdose uponreturn to illicit opioid use. Use of alcohol or benzodiazepines withbuprenorphine increases the risk of overdose anddeath. Education providedabout safe storage of medications. Encouragedparticipation in recovery groups/counseling services. Contact office withquestions or concerns. ?? Clinical Notes: Patient may self-administer their own medications or may self- administer their own oral medications per [facility] Protocol.?? * Recommended Wellness and Pre vention Guidelines: * S ashia clemens L ast Done N ext Due A ction Taken N ONCOMPLIANT C olorectal cancer screening - 0 07/06/2024 - * Procedure Codes: 3 008F BODY MASS INDEX [id number] MEDICAL NUTRITION, INDIV, [id number] TOBACCO NON-USER * Preventive Medicine: Counseling: C are goal follow-up plan: B AL management provided Y va, Tammy grewal Normal BMI Follow-up L selwyn education regarding diet. * Follow Up: 4 Weeks (Reason: Jun/) * * Sign off status: Completed true * Provider: Ronnie Mcpherson, MSN, TECHNICAL INFORMATION SPECIALIST, PMHNP-BC Date: 0 07/06/2024 Generated for Printing/Faxing/eTransmitting on: 0 07/10/2024 07:19 PM CDT History and Physical Notes * HPI (History of Present Illness) Category Sub-Category Detail Notes Category Not es Depression Screening PHQ-9 Little inte rest or pleasure in doing things: Not at all Feeling down, depressed, or hopeless: No t at all Trouble falling or staying asleep, or sl eeping too much: Not at all Feeling tired or having little energy: N ot at all Poor appetite or overeating: Not at all Feeling bad about yourself o r that you are a failure, or have let yourself or your family down: Not at all Trouble concentrating on thi ngs, such as reading the newspaper or watching television: Not at all Moving or speaking so slowly that other people could have noticed; or the opposite, being so fidgety or restless that you have been moving around a lot more than usual: Not at all Thoughts that you would be b yasmine off or of hurting yourself in some way: Not at all Total Score: 0 Screening [place] Suicide Sev erity Rating Scale (LF) Do you want to initiate with: Screener form 1. Wish to be : Have you wished you were or wished you could go to sleep and not wake up?: No 2. Suicidal Thoughts: Have you actually had any thoughts of killing yourself?: No 6. Suicide Behavior Question: Have you ever done anything,started to do anything, or prepared to end your life?: No Interpretation:: Low Risk MAR follow-up Medication Monitorin g and Risk Mitigation Up-to-date on ASAM recommended lab testing?: No Prescribed a buprenorphine product?: Yes Has patient had a buprenorphine and metabolite lab ordered/collected?: Yes (see notes for date of last metabolite testing) Date of last buprenorphine and metabolite: 05/01/2024 Prescription Drug Monitoring Program Rev iew: Yes. No concerns at this time. Plan to address any concerns identified:: No concerns identified. Will continue treatment plan as is. Cravings, Setbacks, Substanc e use, and Stressors Cravings since last visit:: No. Patient denies cravings since last visit. Setbacks since last visit?: No, patient denies setbacks since last visit. Misuse of substances since last visit:: No, patient denies. Stressors: No, patient denies stressors at this time. Withdrawal and Intoxication Symptoms Int oxication Symptoms:: No signs of intoxication are present during visit. Withdrawal Symptoms:: No withdrawal sign s are present during visit. Mental Health, Support Syste m, and Social Determinants Mental Health Status: Stable. Support Systems Include:: Personal suppo rt system (see notes). Court System Involvement?: No Housing Stability:: Stable and safe hous ing. Currently employed?: Social Security/dis ability. Referrals needed:: No referrals needed a t this time. Recommended Wellness and Pre vention Follow-up Recommended Wellness and Prevention reviewed:: Yes. No additional orders/actions needed at this time. Other concerns: Other Concerns?: No. Narcan need: No. Patient already has Agustin can. Preventative Health and Wellness follow-up Action Plans for Clinical Quality Measures: Colorectal Cancer Screening:: Not addressed during this visit. See notes for details. . CSSRS Interpretation and Follow Up Plan CSSRS Interpretation and Follow Up Plan CSSRS Screen documented using SF: Yes Risk Disposition from SF: Low - No Follo w Up Plan Required Follow Up Plan: No Follow Up Plan requir ed at this time. Timeframe of Screening: Today Examination Category Sub-Category Detail Notes Category Not es General Examination GENERAL APPEARANCE: alert, p leasant, in no acute distress PSYCH: alert, oriented x4, speech clear ASAM Physical Assessment Intoxication an d Withdrawal signs Intoxication signs: No signs of intoxication are present during examination. Withdrawal Signs: No withdrawal signs ar e present during examination.
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
[2024-07-10 19:20] VITALS: BP 109/60; PULSE 97; RESP 15; TEMP 36.3; O2SAT 74
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
--- OUTSIDE RECORDS SUMMARY | 2024-07-10 19:20 | XMS_ITS ---
Author Organization [facility] Address [address] [place] [address] Care Team Providers Care Intramural Director Name Role Phone Roney Zurita Primary Care Provider REASON FOR VISIT doxepin and inhaler refill Medications Medication SIG (Take, Route, Frequency, Duration) Notes Start Date End Date Status Doxepin HCl 25 MG 1 capsule at bedtime Orally Once a day for 10 days Active Albuterol Sulfate HFA 108 (90 Base) MCG/ACT 1 puff as needed Inhalation every 4 hrs Active Social History Sex Assigned At : Social History Observation Description Sex Assigned At Male Encounters Encounter Location Date Provider Diagnosis [address] [place] [address] 06/08/2024 Roney Zurita Insomnia G47.00 Assessments Encounter Date Diagnosis (ICD Code) Assessment Notes Treatment Notes Treatment Clinical Notes Section Notes 06/08/2024 Insomnia (ICD-10 - G47.00) Plan Of Treatment Medication Medication Name Sig Start Date Stop Date Notes Doxepin HCl 25 MG 1 capsule at bedtime Orally Once a day for 10 days Albuterol Sulfate HFA 108 (9 0 Base) MCG/ACT 1 puff as needed Inhalation every 4 hrs Progress Notes * Riri CHOB:[birth year] (64 yo M)Acc No.[id number]:06/08/2024 Patient: Ozzy CUNHA :1960 A ge:64 Y S ex:Male Address:[address] [place] [address], [address] * Refills Refill Doxepin HCl Capsule, 25 MG, Orally, 10 Capsule, 1 capsule at bedtime, Once a day, 10 days, Refills=0 Refill Albuterol Sulfate HFA Aerosol Solution, 108 (90 Base) MCG/ACT, Inhalation, 1, 1 puff as needed, every 4 hrs, Refills=0 * true * Date: Generated for Rosemary marmolejo/Serena/Lucianoitting on: 0 07/10/2024 07:19 PM CDT
--- OUTSIDE RECORDS SUMMARY | 2024-07-10 19:20 | XMS_ITS ---
Author Organization [facility] Address [address] [place] [address] Care Team Providers Care Ladies Suit Operator Name Role Phone Roney Zurita Primary Care Provider [phone] Allergies No Known Allergies Results Component Value Reference Range Notes 12 Panel Urine Drug Screen Reviewed date:06/08/2024 08:58:42 AM Interpretation: Performing Lab: Notes/Report: THC neg RIVAS neg MOP (OPI) neg AMP neg MET neg BAR neg BZO neg MDMA neg MTD neg OXY neg PCP neg BUP POS REASON FOR VISIT Walk-In Medications Medication SIG (Take, Route, Frequency, Duration) Notes Start Date End Date Status Vitamin B-1 100 MG 1 tablet Orally Once a day Active Atorvastatin Calcium 40 MG 1 tablet Orally Once a day Active Lopressor 50 MG 1 tablet with food Orally Twice a day Active Aspirin 81 81 MG 1 tablet Orally Once a day Active Lasix 40 MG 1 tablet Orally Once a day [facility] Active Nicotine Polacrilex 4 MG 1 piece chew for 30 minutes as needed Mouth/Throat every 1-2 hours for 30 days As needed for smoking cessation, up to 16 pieces per day 05/01/2024 Active Doxepin HCl 25 MG 1 capsule at bedtime Orally Once a day for 10 days Active Albuterol Sulfate HFA 108 (90 Base) MCG/ACT 1 puff as needed Inhalation every 4 hrs Active Ibuprofen 600 MG 1 tablet with food or milk as needed Orally every 12 hrs Active Buprenorphine HCl-Naloxone HCl 12-3 MG 1 film under the tongue and allow to dissolve Sublingual three times daily 06/08/2024 Active Social History Sex Assigned At : Social History Observation Description Sex Assigned At Male Vital Signs Weight 254 lbs lbs 06/08/2024 Height 70 in in 06/08/2024 BMI 36.44 kg/m2 06/08/2024 Blood pressure systolic 134 mm Hg 06/08/19 25 Blood pressure diastolic 70 mm Hg 025 Heart Rate 88 /min 06/08/2024 Oximetry 94 % 06/08/2024 Respiratory Rate 16 /min 06/08/2024 Encounters Encounter Location Date Provider Diagnosis [address] [place] [address] 06/08/2024 Roney Zurita Opioid use disorder F11.99 and Obesity (BMI 30-39.9) E66.9 Assessments Encounter Date Diagnosis (ICD Code) Assessment Notes Treatment Notes Treatment Clinical Notes Section Notes 06/08/2024 Opioid use disorder (ICD-10 - F11.99) 06/08/2024 Obesity (BMI 30-39.9) (ICD-10 - E66.9) 06/08/2024 Other Patient agrees to take medication as prescribed. Discussed medication side effects, adverse effects, risks, benefits, as well as interactions. Encouraged non-use of opioids. Has naloxone. Recommended participation in recovery groups and/or counseling services. May contact office with questions or concerns. Plan Of Treatment Medication Medication Name Sig Start Date Stop Date Notes Buprenorphine HCl-Naloxone H Cl 12-3 MG 1 film under the tongue and allow to dissolve Sublingual three times daily 06/08/2024 Treatment Notes Assessment Notes Other Patient agrees to take medication as prescribed. Discussed medication side effects, adverse effects, risks, benefits, as well as interactions. Encouraged non-use of opioids. Has naloxone. Recommended participation in recovery groups and/or counseling services. May contact office with questions or concerns. Next Appt Details Follow Up: 4 Weeks, Reason: MAR f/u Progress Notes * Riri CHOB:[birth year] (64 yo M)Acc No.[id number]:06/08/2024 Patient: Ozzy CUNHA Provider: Ronnie Zurita, MSN, EDGER MACHINE SETTER, PRINCIPAL RESEARCH ECONOMIST-C :1960 A ge:64 Y S ex:Male Date:06/08/2024 Address:[address] [place], [place] [id number] Check In:08:48 AM HEAD TELLER Subjective: * Chief Complaints: * W alk-In * HPI: I nterim History: Was hospitalized N o. D epression Screening: PHQ-9 L ittle interest or pleasure in doing things?Not at all F eeling down, depressed, or hopeless N ot at all T rouble falling or staying asleep, or sleeping too much N ot at all F eeling tired or having little energy N ot at all P oor appetite or overeating N ot at all F eeling bad about yourself or that you are a failure, or have let yourself or your family down N ot at all T rouble concentrating on things, such as reading the newspaper or watching television N ot at all M oving or speaking so slowly that other people could have noticed; or the opposite, being so fidgety or restless that you have been moving around a lot more than usual N ot at all T houghts that you would be better off or of hurting yourself in some way N ot at all T otal Score 0 S creening: [place] Suicide Severity Rating Scale (LF) D o you want to initiate with S creener form 1 . Wish to be : Have you wished you were or wished you could go to sleep and not wake up? N o 2 . Suicidal Thoughts: Have you actually had any thoughts of killing yourself? N o 6 . Suicide Behavior Question: Have you ever done anything,started to do anything, or prepared to end your life? N o I nterpretation: L ow Risk M AR follow-up: Appointment via Zoom. Mr. Ch presents for MAR f/u. States current dose of buprenorphine working well for him. Reports no use of opioids or cravings. Medication Monitoring and Risk Mitigation U p-to-date on ASAM recommended lab testing??No P rescribed a buprenorphine product? Y es H as patient had a buprenorphine and metabolite lab ordered/collected? Y es (see notes for date of last metabolite testing) D ate of last buprenorphine and metabolite?05/01/2024 P rescription Drug Monitoring Program Review?Yes. No concerns at this time. P octavia to address any concerns identified: N o concerns identified. Will continue treatment plan as is. Cravings, Setbacks, Substance use, and Stressors C ravings since last visit: N o. Patient denies cravings since last visit. S etbacks since last visit? N o, patient denies setbacks since last visit. M isuse of substances since last visit: N o, patient denies. S tressors N o, patient denies stressors at this time. Withdrawal and Intoxication Symptoms I ntoxication Symptoms: N o signs of intoxication are present during visit. W ithdrawal Symptoms: N o withdrawal signs are present during visit. Mental Health, Support System, and Social Determinants M ental Health Status S table. S upport Systems Include: P ersonal support system (see notes). C ourt System Involvement? N o H ousing Stability: S table and safe housing. C urrently employed? S ocial Security/disability. R eferrals needed: N o referrals needed at this time. Recommended Wellness and Prevention Follow-up R ecommended Wellness and Prevention reviewed:?Yes. No additional orders/actions needed at this time. Other concerns: O ther Concerns? N o. N arcan need N o. Patient already has Narcan. * ROS: B asic ROS: Denies C hills. D enies S weats. D enies C onstipation. I nsomnia A dmits. * Medical History: * Surgical History: N o Surgical History documented. * Hospitalization/Major Diagno stic Procedure: 0 07/2021 alcohol & fentanyl w/d 07/2021knee injury - [facility] 05/01/2021neumonia 2022spiked drink oma-[place] 12/2023 * Family History: F ather: . M other: . 1 brother(s) , 2 sister(s) - healthy. 3 son(s) , 2 daughter(s) - healthy. . * Social History: P rimary Social History: L iving Arrangement L iving Arrangement: I ndependent Living I s this a supportive environment? Y es Alcohol Use A lcohol Use Frequency: N ever Illicit Substance Usage I llicit Substance Usage: Y es Sober x 3 weeks S ubstance Used: H eroin Last heroin use over 1 year ago. Reports he currently takes suboxone, but needs to get back up to full strength F requency Heroin is used: 1 5-20 buttons daily I nterested in quitting: Y es Employment Status E mployment Status: O n Disability * Medications: T akingBuprenorphine HCl-Naloxone HCl 12-3 MG Film 1 film under the tongue and allow to dissolve Sublingual three times daily Nicotine Polacrilex 4 MG Gum 1 piece [...] milk as needed Orally every 12 hrs Doxepin HCl 25 MG Capsule 1 capsule at bedtime Orally Once a day Albuterol Sulfate HFA 108 (90 Base) MCG/ACT Aerosol Solution 1 puff as needed Inhalation every 4 hrs Medication List reviewed and reconciled with the patientTaking Buprenorphine HCl-Naloxone HCl 12-3 MG Film 1 film under the tongue and allow to dissolve Sublingual three times daily Taking Nicotine Polacrilex 4 MG Gum 1 [...] milk as needed Orally every 12 hrs Taking Doxepin HCl 25 MG Capsule 1 capsule at bedtime Orally Once a day Taking Albuterol Sulfate HFA 108 (90 Base) MCG/ACT Aerosol Solution 1 puff as needed Inhalation every 4 hrs Medication List reviewed and reconciled with the patient * Allergies: N .K.D.A.no[Allergies Verified] Objective: * Vitals: I nitials: sle, Wt:254 lbs, Ht: 70 in, BMI:36.44, BP:134/70, HR:88, Oxygen sat %:94, RR:16, Pain scale:6, PHQ9:0. * Examination: G eneral Examination: GENERAL APPEARANCE: a ppointment via Zoom. PSYCH: s peech clear, thought process logical, goal directed. Assessment: * Assessment: 1. O besity (BMI 30-39.9) - E66.9 2 . O pioid use disorder - F11.99 (Primary) Plan: * Treatment: Value Reference Range T HC neg * C OC neg * M OP (OPI) neg * A MP neg * M ET neg * B AR neg * B ZO neg * M DMA neg * M TD neg * O XY neg * P CP neg * B UP POS 2.?Others? Notes: Patient agrees to take medication as prescribed. Discussed medication side effects, adverse effects, risks, benefits, as well as interactions. Encouraged non-use of opioids. Has naloxone. Recommended participation in recovery groups and/or counseling services. May contact office with questions or concerns.?? * Recommended Wellness and Pre vention Guidelines: * S tatus A lert L ast Done N ext Due A ction Taken N ONCOMPLIANT A lcohol use screening - 0 06/08/2024 - N ONCOMPLIANT C holesterol screen (genl pop) - 0 06/08/2024 - N ONCOMPLIANT C olonoscopy - 0 06/08/2024 - N ONCOMPLIANT C olorectal cancer screening - 0 06/08/2024 - N ONCOMPLIANT I FOBt - 0 06/08/2024 - N ONCOMPLIANT I nfluenza vaccine (over 50) - 0 06/08/2024 - N ONCOMPLIANT P neumococcal - 0 06/08/2024 - N ONCOMPLIANT P neumococcal vaccine - 0 06/08/2024 - N ONCOMPLIANT S hingles/Zoster - 0 06/08/2024 - N ONCOMPLIANT T etanus - 0 06/08/2024 - * Procedure Codes: 9 9000 SPECIMEN HANDLING * Follow Up: 4 Weeks (Reason: JUN f/u) * * TELLER Sign off status: Completed true * Provider: Ronnie Zurita, MSN, EDGER MACHINE SETTER, PRINCIPAL RESEARCH ECONOMIST-C Date: 0 06/08/2024 Generated for Rosemary marmolejo/Serena/Jazmynsmitting on: 0 07/10/2024 07:19 PM CDT History and Physical Notes * HPI (History of Present Illness) Category Sub-Category Detail Notes Category Not es Interim History Was hospitalized No Depression Screening PHQ-9 Little inte rest or [...] Not at all Total Score: 0 Screening [place] Suicide Sev erity Rating Scale (LF) Do [...] need: No. Patient already has Agustin can. Examination Category Sub-Category Detail Notes Category Not es General Examination GENERAL APPEARANCE: appointment vi a Zoom PSYCH: speech clear, though t process logical, goal directed
--- OUTSIDE RECORDS SUMMARY | 2024-07-10 19:20 | XMS_ITS | Clinical Summary ---
Author Organization [facility] [address] Address [address] [place] [address] Care Team Providers Care Automotive General Manager Name Role Phone Tomeka Knight Primary Care [...] (05/14/2022): Added automatically from request for surgery [id number] Obesity (BMI 30.0-34.9) 04/30/2022 Assessment & Plan (04/30/2022 4:49 PM MOTOR HOME ELECTRICAL FOREMAN): Diet and exercise. Right knee pain 04/28/2022 Assessment & Plan (04/29/2022 1:57 PM MOTOR HOME ELECTRICAL FOREMAN): Chronic. Right knee MRI 02/2022 demonstrated fracture of right medial femoral condyle, tear of right medial meniscus, and effusion/synovitis. Ortho recommended non op, WBAT. Has not followed up with ortho after discharge. -Encourage ortho follow up -Voltaren gel -APAP -seen by PT/OT; will discharge with walker and home therapy Assessment & Plan (04/28/2022 1:14 AM MOTOR HOME ELECTRICAL FOREMAN): Chronic. Right knee MRI 02/2022 demonstrated fracture of right medial femoral condyle, tear of right medial meniscus, and effusion/synovitis. Ortho recommended non op, WBAT. Has not followed up with ortho after discharge. -Encourage ortho follow up -Voltaren gel -APAP -PT/OT Alcohol abuse 04/28/2022 Assessment & Plan (04/28/2022 2:18 PM MOTOR HOME ELECTRICAL FOREMAN): Drinks 2- 3 shots before bed. No active withdrawals. -Thiamine, folate -Encourage Cessation -Monitor for withdrawal Assessment & Plan (04/28/2022 1:15 AM MOTOR HOME ELECTRICAL FOREMAN): Drinks 2- 3 shots before bed. No active withdrawals. -Thiamine, folate -Encourage Cessation -Monitor for withdrawal Elevated alkaline phosphatase level 04/28/2022 Assessment & Plan (04/30/2022 4:09 PM MOTOR HOME ELECTRICAL FOREMAN): Unclear etiology. HCV positive. GGTP elevated. Intra and extrahepatic dilatation noted on US; MRI to be performed later this evening. Assessment & Plan (04/28/2022 1:15 AM MOTOR HOME ELECTRICAL FOREMAN): Unclear etiology. HCV positive. -Check GGT and Liver ultrasound for now. HCV (hepatitis C virus) 04/28/2022 Assessment & Plan (04/28/2022 2:20 PM MOTOR HOME ELECTRICAL FOREMAN): Chronic and untreated. Missed ID clinic appointment 04/20/22; stated getting a ride is the problem. -Genotype pending. -Needs outpatient follow up. Assessment & Plan (04/28/2022 1:16 AM MOTOR HOME ELECTRICAL FOREMAN): Chronic and untreated. Missed ID clinic appointment 04/20/22. -Needs outpatient follow up. Acute on chronic diastolic heart failure 023 Assessment & Plan (04/29/2022 1:54 PM MOTOR HOME ELECTRICAL FOREMAN): TTE with normal EF. Previously g1DD and increased RVSP. -S/P 60mg IV Lasix in ED, then 40mg IV BID daily -Will change to Lasix 40mg po 04/30 -Continue metoprolol, statin, ASA Assessment & Plan (04/28/2022 1:17 AM MOTOR HOME ELECTRICAL FOREMAN): TTE with normal EF. Previously g1DD and increased RVSP. Hypervolemic on examination today. -S/P 60mg IV Lasix in ED, continue 40mg IV BID daily -Monitor electrolytes and replete -Continue metoprolol, statin, ASA Venous stasis dermatitis of both lower extremiti es 04/27/2022 Assessment & Plan (04/29/2022 1:54 PM MOTOR HOME ELECTRICAL FOREMAN): Chronic venous stasis dermatitis. No infectious symptoms, [...] following. Assessment & Plan (04/28/2022 1:10 AM MOTOR HOME ELECTRICAL FOREMAN): Chronic venous stasis dermatitis. No infectious symptoms, normal lactate, no fevers, and no WBC making infection less concerning though given ulcer on left lateral leg, cannot rule out superimposed infection. Also has prior dopplers demonstrating chronic DVT at the level of the popliteal vein in the left. Post thrombotic changes could be contributing though bilateral symptoms. Discussed with vascular auto air conditioning apprentice about AC in chronic DVTs and no [...] 09/20/2020 Assessment & Plan (04/30/2022 4:08 PM MOTOR HOME ELECTRICAL FOREMAN): Elevated total protein thought to be related to HCV. -Check SPEP/UPEP given alk phos elevation. Immunofixation unremarkable. UPEP pending. -Needs to follow up with ID for HCV treatment. Assessment & Plan (04/28/2022 1:13 AM MOTOR HOME ELECTRICAL FOREMAN): Elevatedt total protein thought to be related [...] 08/22/2019 Assessment & Plan (04/30/2022 4:09 PM MOTOR HOME ELECTRICAL FOREMAN): Smokes @ 1ppd -Duonebs for now -Smoking cessation; wants nicotine patch in the hospital; states he has some at home and does not need any prescribed. Assessment & Plan (04/28/2022 1:11 AM MOTOR HOME ELECTRICAL FOREMAN): Wheezing bilaterally. Denies SOB. Still smoking. Not [...] abuse Assessment & Plan (04/30/2022 4:07 PM MOTOR HOME ELECTRICAL FOREMAN): Active use of Fentanyl. No longer followed in clinic for Suboxone; was being followed at [facility] in [place] up until 2mo ago per pt. -Encourage cessation -Seen for substance use. Pt is currently on patch. When discussing f/u at the [facility], he reports that he plans on quitting on his own. On further discussion, he agreed to an appointment - he will be seeing them on Tuesday. Assessment & Plan (04/28/2022 1:12 AM MOTOR HOME ELECTRICAL FOREMAN): Active use of Fentanyl. No longer followed [...] Assessment & Plan (08/22/2019 5:28 AM CDT): Mesick most likely to be drug-induced reaction. No [...] Quadrivalent, Spl it, Preservative Free, Intramuscular 02/22/2022,02/17/2018 Surgical History Surgery Date Site/Laterality Comments CHEST SURGERY 04/18/1996 - 04/17/1997 Medical History Medical History Date Comments COPD (chronic obstructive pulmonary disease) (HC C) HTN (hypertension) Cellulitis Family History Medical History Relation Name Comments Hypertension Brother Hypertension Mother Hypertension Sister Relation Name Status Comments Brother Mother Sister Social History Tobacco Use Types Packs/Day Years [...] 02/24/2022 How often do you attend chur or restoration services? Never 02/24/2022 Do you belong to any clubs o r organizations such as rastafari groups, unions, fraternal or athletic groups, or [...] place to sleep or slept in a assisted (including now)? No 02/24/2022 Personal Safety Answer Date Recorded Have you ever been in or are you currently in a harmful physical or emotional relationship or is someone making you feel afraid or unsafe? Denies 11/26/2022 Sex and Gender Information Value Date Recorded Sex Assigned at Not on file Legal Sex Male 6:41 PM MOTOR HOME ELECTRICAL FOREMAN Gender Identity Not on file Sexual Orientation Not on file Obstetrics History Last Filed Vital Signs Vital Sign Reading Time Taken Comments Blood Pressure 115/78 11/26/2022 7:41 PM CDT Pulse 107 11/26/2022 7:41 PM CDT Temperature 36.4 C (97.5 F) 11/26/2022 7:41 PM CDT Respiratory Rate 20 11/26/2022 7:41 PM CDT Oxygen Saturation 96% 11/26/2022 7:41 PM CDT Inhaled Oxygen Concentration - - Weight 117.2 kg (258 lb 6.4 oz) 06/04/2022 9:57 AM MOTOR HOME ELECTRICAL FOREMAN Height 182.9 cm (6' 0.01 ) 06/04/2022 9:57 AM CS T Body Mass Index 35.04 06/04/2022 9:57 AM MOTOR HOME ELECTRICAL FOREMAN Plan of Treatment Health Maintenance Due Date Last Done Comments Colon Cancer Screening-Colonoscopy 1960 Depression Screening 1960 Prostate Cancer Screening-PSA 1960 DTaP/Tdap/Td Vaccine (1 - Tdap) 1969 Pneumococcal vaccine 65+ (1 of 2 - PCV) 1977 Zoster Vaccine (1 of 2) 2008 Abdominal Aortic Aneurysm (A AA) Screen 2023 09/06/2020 Well Visit 65+ 2023 Fall Risk Assessment 04/30/2023 04/30/2022 Influenza Vaccine (#1) 2023 02/22/2022, 2017 Hepatitis C Screening Completed 07/07/2022 , 07/06/2022, 06/10/2022, Additional history exists Procedures Procedure Name Priority Date/Time Associated Diagnosis Comments HEPATITIS C GENOTYPE Routine 06/04/2022 11:06 AM MOTOR HOME ELECTRICAL FOREMAN Acute hepatitis C virus infection without hepatic coma CT ABDOMEN PELVIS WO CONTRAST 09/06/2020 12:00 AM CDT from Last 3 Months or Most Recently Relevant to Health Maintenance Results * Hepatitis C genotype (06/04/2022 11:06 AM MOTOR HOME ELECTRICAL FOREMAN) HCV genotype TNP [facility] Comment: HCV Genotype, S was cancelled on 06/09/2022 at 16:01; Duplicate test request. Test Performed by: [facility] [id number] [place] [address] Strainer Tender: Harpal Gregory M.D. Ph.D.; CLIA# [id number] Blood 06/04/2022 11:0 6 AM MOTOR HOME ELECTRICAL FOREMAN 06/04/2022 1:32 PM MOTOR HOME ELECTRICAL FOREMAN us Gudelia Singh MD LAB MICROBIOLOGY - GENERAL ORDER TATYANA Final Result [facility] Department of Laboratories [place], [place] [id number] * CT Abdomen Pelvis WO Contrast (09/06/2020 12:00 AM CDT) Anatomical Region Laterality Modality Body N/A Computed Tomogra phy 09/06/2020 2:12 PM CDT Narrative 09/06/2020 2:23 PM CDT Patient Name: OZZY CH Ordering Dr: Francesca Zazueta MDO.B: 1960 Exam Date: 09/06/20 0000 Age: 60 Sex: Male MR#: [id number] Loc: S220-02 RADIOLOGY REPORT Order #[id number] CT Scan CT Abd/Pelvis WO IV Contrast [...] by Danette Maya TS T: Report ID: [id number] Reading Location: [place] [address] REPORT ELECTRONICALLY SIGNED IN OTHER VENDOR SYSTEM Resulting Agency Comment I Procedure Note Danette Maya MD - 09/06/2020 Patient Name: OZZY CH Dr: Francesca Zazueta MD D.O.B: 1960 Exam Date: 09/06/20 0000 Age: 60 Sex: Male MR#: [id number] Loc: S220-02 RADIOLOGY REPORT Order #[id number] CT Scan CT Abd/Pelvis WO IV Contrast [...] by Danette Maya TS T: Report ID: [id number] Reading Location: [id number] REPORT ELECTRONICALLY SIGNED IN OTHER VENDOR SYSTEM Francesca Zazueta MD IMG CT PROCEDUR ES Final Result from Last 3 Months or Most Recently Relevant to Health Maintenance Insurance [facility] [place] [address] Member Subscriber Plan / Payer (Ef fective 2020-Present) Name:Ozzy Ch Relation to Subscriber:Self Name:Ozzy Ch Payer ID:[id number] (NAIC) Type:MEDICAID RISK OTHER Address: ATTN: CLAIMS DEPT [address] [facility] [address] [place] [phone] Advance Directives For more information, please contact: [phone] * Full Code (Latest Code Status on [...] 5:04 AM 08/22/2019 9:25 PM Care Teams Automotive General Manager Relationship Specialty Start Date End Date Tomeka Knight PA PCP - General Physician Refrigeration Systems Installer 06/28/19
--- OUTSIDE RECORDS SUMMARY | 2024-07-10 19:20 | XMS_ITS | CONTINUITY OF CARE DOCUMENT ---
Author Name alex johnson Address Unknown Organization [facility] Address [address] [place] [address] Phone [phone] Care Team Providers Care Shuttle Spotter Name Role Phone Anival MONTAGUE, Salo Unavailable [phone] Salo Florian MD Unavailable [phone] INSURANCE PROVIDERS Payer name Policy type / Coverage type Roxanne red democrat ID DONYA MEDICAID (2) Medicaid [id number]
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
[2024-07-10 19:47] LABS: Basophils Percent Auto 0.5 % (0.2-1.2); Eosinophils Absolute Auto 0.6 K/mm3 (0-0.3); Eosinophils Percent Auto 6.8 % (0-4.4); Hematocrit 44.8 % (42.0-52.0); Immature Granulocyte Absolute 0.02 K/mm3 (0.00-0.031); Immature Granulocyte Percent A 0.2 % (0-0.5); Lymphocytes Percent Auto 29.6 % (18.3-44.2); Mean Corpuscular HGB Conc 31.3 g/dl (32-36); Mean Corpuscular Hemoglobin 30.2 pg (26-34); Mean Corpuscular Volume 96.8 fl (80-100); Mean Platelet Volume 10.1 fl (7.4-10.4); Monocytes Absolute Auto 0.8 K/mm3 (0.1-0.6); Monocytes Percent Auto 9.4 % (2.6-8.5); Neutrophils Absolute Auto 4.3 K/mm3 (1.3-6.7); Neutrophils Percent Auto 53.5 % (45.5-73.1); Platelet Count Result 207 k/mm3 (150-375); Red Blood Count 4.63 M/mm3 (4.6-6.20); Red Cell Distribution Width 13.5 % (11.5-14.5); White Blood Count 8.1 K/mm3 (4.5-10.0)
[2024-07-10] MEDS: methylPREDNISolone SOD SUCC 125 MG VIAL IV PUSH (19:53)
[2024-07-10 19:54] LABS: Alveolar/Arterial O2 Gradient 191.9 mmHg; Base Excess ABG 3.8 mEq/l (+/-2.0); Fractional Inspired Oxygen 48 %; HCO3 ABG 33.2 mEq/l (22.0-26.0); Oxygen Content ABG 17.6 %vol (16.0-22.0); Oxygen Saturation ABG 89.5 % (95.0-100.0); Oxyhemoglobin 88.1 % THb (90.0-100.0); PO2 ABG 66.3 mmHg (80.0-100.0); PO2 FiO2 Ratio Arterial Blood 1.38 %; Total Hemoglobin 14.2 g/dL (12.0-18.0)
[2024-07-10] MEDS: MAGNESIUM SULF 1 GM/D5W 100 ML 1 GM/100 ML BAG IVPB (19:55)
[2024-07-10 19:56] LABS: Alanine Aminotransferase 12 U/L (6-50); Albumin Level 4.3 g/dL (3.5-5.1); Alkaline Phosphatase 98 U/L (38-126); Anion Gap 9 mmol/L (4-12); Aspartate Amino Transferase 23 U/L (17-59); Bilirubin,Total 0.4 mg/dL (0.2-1.3); Blood Urea Nitrogen 16 mg/dL (9-20); Calcium 8.8 mg/dL (8.4-10.2); Carbon Dioxide 33 mmol/L (22-30); Chloride 98 mmol/L (98-107); Estimated CRCL calculation 91 ml/min; Estimated Glomerular Filt Rate > 60; Glucose 122 mg/dL (65-110); Lipase 38 U/L (23-300); Potassium 3.5 mmol/L (3.4-5.0); Sodium 140 mmol/L (137-145)
[2024-07-10 19:59] LABS: Device NASAL CANNULA; Liters per Minute 6.5 LPM; Modified Allen's Test Pass; PCO2 ABG 74.4 mmHg (35.0-45.0); Site Drawn RIGHT RADIAL; pH ABG 7.268 (7.350-7.450)
[2024-07-10 20:01] VITALS: PULSE 90; RESP 21
[2024-07-10] MEDS: IPRATROPIUM 0.5 MG/ALBUTEROL SULFATE 2.5 MG AMPUL.NEB 3 ML INHALATION (20:01)
--- OUTSIDE RECORDS SUMMARY | 2024-07-10 20:05 | XMS_ITS | Referral Summary ---
Author Organization [facility] [address] Address [address] [place] [address] Care Team Providers Care Cdl Program Coordinator Name Role Phone Tomeka Knight Primary Care [...] (05/14/2022): Added automatically from request for surgery [id number] Obesity (BMI 30.0-34.9) 04/30/2022 Assessment & Plan (04/30/2022 4:49 PM SUPERVISOR DRAWING): Diet and exercise. Right knee pain 04/28/2022 Assessment & Plan (04/29/2022 1:57 PM SUPERVISOR DRAWING): Chronic. Right knee MRI 02/2022 demonstrated fracture of right medial femoral condyle, tear of right medial meniscus, and effusion/synovitis. Ortho recommended non op, WBAT. Has not followed up with ortho after discharge. -Encourage ortho follow up -Voltaren gel -APAP -seen by PT/OT; will discharge with walker and home therapy Assessment & Plan (04/28/2022 1:14 AM SUPERVISOR DRAWING): Chronic. Right knee MRI 02/2022 demonstrated fracture of right medial femoral condyle, tear of right medial meniscus, and effusion/synovitis. Ortho recommended non op, WBAT. Has not followed up with ortho after discharge. -Encourage ortho follow up -Voltaren gel -APAP -PT/OT Alcohol abuse 04/28/2022 Assessment & Plan (04/28/2022 2:18 PM SUPERVISOR DRAWING): Drinks 2- 3 shots before bed. No active withdrawals. -Thiamine, folate -Encourage Cessation -Monitor for withdrawal Assessment & Plan (04/28/2022 1:15 AM SUPERVISOR DRAWING): Drinks 2- 3 shots before bed. No active withdrawals. -Thiamine, folate -Encourage Cessation -Monitor for withdrawal Elevated alkaline phosphatase level 04/28/2022 Assessment & Plan (04/30/2022 4:09 PM SUPERVISOR DRAWING): Unclear etiology. HCV positive. GGTP elevated. Intra and extrahepatic dilatation noted on US; MRI to be performed later this evening. Assessment & Plan (04/28/2022 1:15 AM SUPERVISOR DRAWING): Unclear etiology. HCV positive. -Check GGT and Liver ultrasound for now. HCV (hepatitis C virus) 04/28/2022 Assessment & Plan (04/28/2022 2:20 PM SUPERVISOR DRAWING): Chronic and untreated. Missed ID clinic appointment 04/20/22; stated getting a ride is the problem. -Genotype pending. -Needs outpatient follow up. Assessment & Plan (04/28/2022 1:16 AM SUPERVISOR DRAWING): Chronic and untreated. Missed ID clinic appointment 04/20/22. -Needs outpatient follow up. Acute on chronic diastolic heart failure 023 Assessment & Plan (04/29/2022 1:54 PM SUPERVISOR DRAWING): TTE with normal EF. Previously g1DD and increased RVSP. -S/P 60mg IV Lasix in ED, then 40mg IV BID daily -Will change to Lasix 40mg po 04/30 -Continue metoprolol, statin, ASA Assessment & Plan (04/28/2022 1:17 AM SUPERVISOR DRAWING): TTE with normal EF. Previously g1DD and increased RVSP. Hypervolemic on examination today. -S/P 60mg IV Lasix in ED, continue 40mg IV BID daily -Monitor electrolytes and replete -Continue metoprolol, statin, ASA Venous stasis dermatitis of both lower extremiti es 04/27/2022 Assessment & Plan (04/29/2022 1:54 PM SUPERVISOR DRAWING): Chronic venous stasis dermatitis. No infectious symptoms, [...] following. Assessment & Plan (04/28/2022 1:10 AM SUPERVISOR DRAWING): Chronic venous stasis dermatitis. No infectious symptoms, normal lactate, no fevers, and no WBC making infection less concerning though given ulcer on left lateral leg, cannot rule out superimposed infection. Also has prior dopplers demonstrating chronic DVT at the level of the popliteal vein in the left. Post thrombotic changes could be contributing though bilateral symptoms. Discussed with vascular pressurised container filler about AC in chronic DVTs and no [...] 09/20/2020 Assessment & Plan (04/30/2022 4:08 PM SUPERVISOR DRAWING): Elevated total protein thought to be related to HCV. -Check SPEP/UPEP given alk phos elevation. Immunofixation unremarkable. UPEP pending. -Needs to follow up with ID for HCV treatment. Assessment & Plan (04/28/2022 1:13 AM SUPERVISOR DRAWING): Elevatedt total protein thought to be related [...] 08/22/2019 Assessment & Plan (04/30/2022 4:09 PM SUPERVISOR DRAWING): Smokes @ 1ppd -Duonebs for now -Smoking cessation; wants nicotine patch in the hospital; states he has some at home and does not need any prescribed. Assessment & Plan (04/28/2022 1:11 AM SUPERVISOR DRAWING): Wheezing bilaterally. Denies SOB. Still smoking. Not [...] abuse Assessment & Plan (04/30/2022 4:07 PM SUPERVISOR DRAWING): Active use of Fentanyl. No longer followed in clinic for Suboxone; was being followed at [facility] in [place] up until 2mo ago per pt. -Encourage cessation -Seen for substance use. Pt is currently on patch. When discussing f/u at the [facility], he reports that he plans on quitting on his own. On further discussion, he agreed to an appointment - he will be seeing them on Tuesday. Assessment & Plan (04/28/2022 1:12 AM SUPERVISOR DRAWING): Active use of Fentanyl. No longer followed [...] Assessment & Plan (08/22/2019 5:28 AM CDT): Cost most likely to be drug-induced reaction. No [...] often do you attend chur ch or hindu services? Never 02/24/2022 Do you belong to any clubs o r organizations such as jainism groups, unions, fraternal or athletic groups, or [...] place to sleep or slept in a alf (including now)? No 02/24/2022 Personal Safety Answer Date Recorded Have you ever been in or are you currently in a harmful physical or emotional relationship or is someone making you feel afraid or unsafe? Denies 11/26/2022 Sex and Gender Information Value Date Recorded Sex Assigned at Not on file Legal Sex Male 6:41 PM SUPERVISOR DRAWING Gender Identity Not on file Sexual Orientation [...] (258 lb 6.4 oz) 06/04/2022 9:57 AM SUPERVISOR DRAWING Height 182.9 cm (6' 0.01 ) 06/04/2022 9:57 AM CS T Body Mass Index 35.04 06/04/2022 9:57 AM SUPERVISOR DRAWING Plan of Treatment Not on file Procedures Procedure Name Priority Date/Time Associated Diagnosis Comments HEPATITIS C GENOTYPE Routine 06/04/2022 11:06 AM SUPERVISOR DRAWING Acute hepatitis C virus infection without hepatic coma CT ABDOMEN PELVIS WO CONTRAST 09/06/2020 12:00 AM CDT from Last 3 Months or Most Recently Relevant to Health Maintenance Results * Hepatitis C genotype (06/04/2022 11:06 AM SUPERVISOR DRAWING) HCV genotype JOANNE BELTRAN [facility] Comment: HCV Genotype, S was cancelled on 06/09/2022 at 16:01; Duplicate test request. Test Performed by: [facility] [address] [place] [address] General Internal Medicine Physician: Harpal Gregory M.D. Ph.D.; CLIA# [id number] Blood 06/04/2022 11:0 6 AM SUPERVISOR DRAWING 06/04/2022 1:32 PM SUPERVISOR DRAWING us Gudelia Singh MD LAB MICROBIOLOGY - GENERAL ORDER TATYANA Final Result [facility]IN [facility] Department [place] [address] * CT Abdomen Pelvis WO Contrast (09/06/2020 12:00 AM CDT) Anatomical Region Laterality Modality Body N/A Computed Tomogra phy 09/06/2020 2:12 PM CDT Narrative 09/06/2020 2:23 PM CDT Patient Name: OZZY CH Ordering Dr: Francesca Zazueta MD D.O.B: 1960 Exam Date: 09/06/20 0000 Age: 60 Sex: Male MR#: [id number] Loc: S220-02 RADIOLOGY REPORT Order #[id number] CT Scan CT Abd/Pelvis WO IV Contrast [...] signed by Danette MILLER T: Report ID: [id number] Reading Location: [place] [address] REPORT ELECTRONICALLY SIGNED IN OTHER VENDOR SYSTEM Resulting Agency Comment I Procedure Note Danette Maya MD - 09/06/2020 Patient Name: OZZY CH Dr: Francesca Zazueta MD D.O.B: 1960 Exam Date: 09/06/20 0000 Age: 60 Sex: Male MR#: [id number] Loc: S220-02 RADIOLOGY REPORT Order #[id number] CT Scan CT Abd/Pelvis WO IV Contrast [...] by Danette Maya TS T: Report ID: [id number] Reading Location: [place] [address] REPORT ELECTRONICALLY SIGNED IN OTHER VENDOR SYSTEM Francesca Zazueta MD IM CT PROCEDUR ES Final Result from Last 3 Months or Most Recently Relevant to Health Maintenance Insurance [facility] Advance Directives For more information, please contact: [phone] * Full Code (Latest Code Status on [...] 5:04 AM 08/22/2019 9:25 PM Care Teams Cdl Program Coordinator Relationship Specialty Start Date End Date Tomeka Knight PA PCP - General Physician Section Maintainer 06/28/19
--- OUTSIDE RECORDS SUMMARY | 2024-07-10 20:06 | XMS_ITS | CONTINUITY OF CARE DOCUMENT ---
Author Name alex johnson Address Unknown Organization [facility] Address [address] [place] [address] Phone [phone] Care Team Providers Care Planning Consultant Name Role Phone Anival MONTAGUE, Salo Unavailable [phone] Salo Florian MD Unavailable [phone] INSURANCE PROVIDERS Payer name Policy type / Coverage type [employer]oxanne [employer] party ID [id number] MEDICAID (2) Medicaid [id number]
--- OUTSIDE RECORDS SUMMARY | 2024-07-10 20:06 | XMS_ITS | Data Portability ---
Author Organization [facility] EDISRichard [facility] Address [address] [place] [address] Care Team Providers Care Pharmacology Professor Name Role Phone TOMEKA MONTELONGO Primary Care Provider Unavailabl e Assessment Encounter Date Assessment Date Assessment LastModified by Organization Details LastModified Time 06/11/2024 06/11/2024 I am not willing to prescribe the 25 mg dose of Doxepin for insomnia. Initially, Mr Ch was not forthright with portions of his social history. gerson Not available 06/11/2024 19:41:23 Plan of Treatment Reminders Order Date Submit Date Provider Last Modified By Organization Details Last Modified Time Details Appointments ANY 30 2024 11:30A M Dominick Kennedy MD Not available Not available Not available Lab pro BNP (pro B-type natriuret ic peptide), serum or plasma 2024 025 [facility], [address] [place] [address], [address], [place], [address], 06/13/2024 06:25:12 urinalysi s macro (dipstick ) panel, urine 2024 025 [facility], [address] [facility], [address], [place], [address], 06/12/2024 08:24:22 CMP, serum or plasma 2024 025 [facility], [address] [place] [address], [address], [place], [address], 06/12/2024 08:24:21 CBC w/ auto diff 2024 025 [facility], [address] [place] [address] Alexand[address], [address], [place], [address], 06/12/2024 08:24:24 lipid panel, serum 2024 025 [facility], [address] [place] [address] [address], [address], [place], [address], 06/12/2024 08:24:19 vitamin D, 25-hydrox y, total, serum 2024 025 [facility], [address] [place] [address] [address], [address], [place], [address], 06/13/2024 06:25:16 TSH, ultra-sen sitive, serum 2024 025 [facility], [address] [place] [address], [address], [place], [address], 06/13/2024 06:25:14 drug screen, urine 2024 025 [facility], [address] [place] [address] [address], [address], [place], [address], 06/13/2024 06:25:13 PSA, total, serum or plasma 2024 025 [facility], [address] [place] [address] [address], [address], [place], [address], 06/13/2024 06:25:15 albumin/c reatinine , mass ratio, urine 2022 023 [facility], [address] [place] [address] [address], [address], [place], [address], 09/22/2022 21:08:04 HbA1c (hemoglob in A1c), blood 2022 023 EMILY HAWKINSCRISTOPHER, [address], [address], [place], [address], 09/22/2022 21:08:05 CMP, serum or plasma 2022 023 [facility], [address], [address], [place], [address], 09/22/2022 21:08:05 CBC w/ auto diff 2022 023 [facility], [address], [address], [place], [address], 09/22/2022 21:08:06 HbA1c (hemoglob in A1c), blood 2022 023 EMILY In-Office Order, Internal Use Only DO Not Attach Compendium DO Not Attach Compendium, Do Not Delete/merge, [id number] 05/20/2022 16:09:17 CMP, serum or plasma 2022 023 EMILY HAWKINSCRISTOPHER, [address] Vel[address]sh[address], [address], [place], [address], 05/20/2022 22:07:38 CBC w/ auto diff 2022 023 EMILY HAWKINSCRISTOPHER, [address] Glasstaiwogenoshahana [address], [address], [place], [address], 05/20/2022 22:07:39 albumin/c reatinine , mass ratio, urine 2022 023 EMILY ROSSCRISTOPHER, [address]ahi Glassantoinette [address], [address], [place], [address], 05/21/2022 11:12:47 hepatitis C virus RNA, quant, PCR, serum or plasma 2021 022 [facility], [address] [facility] [address], [address], [place], [address], 03/20/2022 22:06:53 CBC w/ auto diff 2021 [facility], [address] [facility] [address], [address], [place], [address], 03/16/2022 22:07:04 CMP, serum or plasma 2021 [facility], [address] [facility], [address], [place], [address], 03/16/2022 22:07:03 HIV 1 + 2, meaningfu l use set 2021 EMILY JAR[facility]ILL[facility], [address] [place] [address], [address], [place], [address], 03/20/2022 22:06:54 Referral podiatris t referral 2024 025 EMILY AVILAM, [address] [facility], [address], [place], [address], 07/10/2024 04:31:51 pulmonolo gist referral 2024 025 EMILY Cummings MD, [address] [facility], [place], [address], 06/29/2024 16:39:51 cardiolog ist referral 2024 025 jenn Danielle , [address] [facility] [address], [address], [place], [address], 06/28/2024 16:06:22 physical therapist referral - [place] Location 2024 025 jenn [facility], [address] [facility], [place], [address], 06/28/2024 16:03:47 wound care referral 2022 023 [facility], [address] [facility], 6 [address], [place], [address], 06/17/2022 11:00:39 palliativ e medicine referral - palliativ e 2022 023 [facility]ian hospitalkillian [facility], [address], [address], [place], [address], 11/03/2022 15:03:06 cardiolog ist referral 2022 023 [facility], [address] [facility] [address], [address], [place], [address], 07/29/2022 14:29:33 gastroent erologist referral [address], [address], [place], [address], 08/09/2022 17:16:04 orthopedi c surgeon referral 2021 022 [facility] ([facility]), [address] [facility], [address] [place] [address], [address], 04/13/2022 12:39:51 physical therapist referral 2021 022 [facility]), [address], [place], [address], 05/13/2022 15:19:32 Procedures ankle brachial index complete (PROC) 2020 021 ATHENAFAX [facility] (Surgery Sched), [address] [place], [address], 02/10/2021 16:55:10 Surgeries None recorded. Imaging XR, cervical spine - Chronic neck pain [address], [address] [place] [address] [address], [place], [address], 07/10/2024 10:31:17 LDCT, chest, for lung cancer screening [address], [address] [place] [address] [address], [place], [address], 07/10/2024 10:31:17 LDCT, chest, for lung cancer screening [address] (Imaging), [address] [place] [address] [address] [facility], [place], [address], 05/26/2022 13:28:18 US, duplex, venous, lower extremity [address] (Imaging), [address] [place] [address] [address] [facility], [place], [address], 03/18/2022 09:46:48 LDCT, chest, for lung cancer screening [address] (Imaging), [address] [place] [address] [address], [place], [address], 03/18/2022 09:46:52 US, duplex, arterial, lower extremity 2020 021 ATHENAFAX [facility] (Rad), [address], [place], [address], 02/10/2021 17:15:16 XR, ankle 2020 021 [email or web address] [facility]), [address], [place], [address], 02/10/2021 15:47:17 XR, foot 2020 021 [email or web address] [facility]), [address], [place], [address], 02/10/2021 15:47:55 US, duplex, venous, lower extremity 2020 021 [facility] ([facility]), [address] [place], [address], 02/10/2021 17:15:16 Medication Orders fluconazo le 150 mg tablet 2024 025 [facility] #11165, [address] [place], [place], [phone], 06/11/2024 14:57:04 albuterol sulfate HFA 90 mcg/actua tion aerosol inhaler 2024 025 [facility] #[id number], [address] [place] [address], [id number], 06/11/2024 14:54:01 aspirin 81 mg tablet,de layed release 2024 025 [facility] #[id number], [address] [place] [address], [id number], 06/11/2024 14:54:07 metoprolo l tartrate 37.5 mg tablet 2024 025 [facility] #87739, [address] [place] [address], [id number], 06/11/2024 14:54:04 furosemid e 40 mg tablet 2024 025 [facility] #37515, [address] [place] [address], [id number], 06/11/2024 14:53:59 ammonium lactate 12 % lotion 2024 025 [facility] #39455, [address] [place], [place], [phone], 06/11/2024 14:57:55 atorvasta tin 20 mg tablet 2024 025 [facility] #41044, [address] [place], [place], [phone], 06/11/2024 19:34:52 metoprolo l succinate ER 25 mg tablet,ex tended release 24 hr 2022 023 [facility] #03265, [address] [facility], [place], [place], [id number], 06/11/2024 14:05:12 furosemid e 20 mg tablet 2022 023 [facility] #37165, [address] , [place], [place], [phone], 06/11/2024 14:04:57 clotrimaz ole 1 % topical cream 2022 023 [facility] #28773, [address] [place], [place], [id number], 06/11/2024 14:27:37 furosemid e 40 mg tablet 2021 022 [facility] #15769, [address] [place], [place], [phone], 03/15/2022 17:15:24 Patient TargetsNo targets recorded. Patient Instructions Encounter Date Encounter Id Patient Instructions Last Modified By Organization Details Last Modified Time 02/10/2021 [id number] toenail fungus: care instructions fharry Not available 02/10/2021 17:08:03 03/15/2022 [id number] complete PFT w/ post bronchodilator spirometry* Not available 03/15/2022 16:00:52 A healthy lifestyle: care instructions Not available 03/22/2022 20:41:59 knee pain or injury: care instructions Not available 03/22/2022 20:39:23 05/20/2022 [id number] complete PFT w/ post bronchodilator spirometry* EMILY Not available 06/10/2022 06:06:21 A healthy lifestyle: care instructions Not available 05/22/2022 08:58:45 knee pain or injury: care instructions Not available 05/22/2022 08:58:45 09/21/2022 [id number] A healthy lifestyle: care instructions Not available 09/21/2022 14:52:26 06/11/2024 [id number] athlete's foot: care instructions oajao Not available 06/11/2024 14:56:55 high blood pressure: care instructions oajao Not available 06/11/2024 14:53:53 learning about high blood pressure oajao Not available 06/11/2024 14:53:54 heart failure: care instructions oajao Not available 06/11/2024 14:53:54 learning about heart failure oajao Not available 06/11/2024 14:53:53 dry skin: care instructions oajao Not available 06/11/2024 14:56:55 Labs Cardiology D/C summary from [facility] Colonoscopy report from [facility] Podiatry Xrays Stop smoking Do not smoke while using Nicotine replacement PT for PMD Follow up in 4 weeks (30 minutes) oajao Not available 06/11/2024 19:41:47 Very detailed initial visit oajao Not available 06/11/2024 19:42:04 Reason for Referral Hand Winder Referral for Chronic hepatitis C Referring Physician: [facility], Encounter Date: 03/15/2022 Orthopedic Surgeon Referral for Pain of right knee joint Referring Physician: [facility], Encounter Date: 03/15/2022 Physical Therapist Referral for Pain of right knee joint Referring Physician: [facility], Encounter Date: 03/15/2022 Referring Physician: General Christiana Trpiathi, Encounter Date: 05/20/2022 Palliative Medicine Referral for Congestive heart failure palliative Referring Physician: [facility], Encounter Date: 05/20/2022 Emu Farmer Referral for Co ngestive heart failure Referring Physician: Tomeka Montelongo, Beveller Operator, Encounter Date: 05/20/2022 Physical Therapist Referral for Impaired mobility [facility] Referring Physician: Dominick Kennedy, Internal Medicine, Encounter Date: 06/11/2024 Emu Farmer Referral for Co ngestive heart failure CHF Referring Physician: Dominick Kennedy, Internal Medicine, Encounter Date: 06/11/2024 Welt Maker Referral for C hronic obstructive pulmonary disease COPD Referring Physician: Dominick Kennedy, Internal Medicine, Encounter Date: 06/11/2024 Furnace Fitter Referral for Kaylan a pedis Onychomycosis, Tinea pedis Referring Physician: Dominick Kennedy, Internal Medicine, Encounter Date: 06/11/2024 Results Created Date Observation Date Name Description Value Unit Range Abnormal Flag Note LastModifiedBy Organization Detail LastModifiedTime 03/15/20 22 03/16/2022 COMP. METAB OLIC PANEL (14) glucose 116 mg/dL 65-99 above high normal ANION GP 19.0 mmol/ L N OSMOL 270.0 mOsM/ L L REFER ENCE RANGE : 275.0 -301. 0 Not Available [facility] Department [address] [place], [address], 03/16/2022 22:07:03 03/15/20 22 03/16/2022 COMP. METAB OLIC PANEL (14) BUN 15 mg/dL 8-26 Not Available [facility] [address] [place], [address], 03/16/2022 22:07:03 03/15/20 22 03/16/2022 COMP. METAB OLIC PANEL (14) creatinine 0.81 mg/dL 0.50-1 .40 Not Available [facility] [address] [place], [address], 03/16/2022 22:07:03 03/15/20 22 03/16/2022 COMP. METAB OLIC PANEL (14) eGFR 99 mL/mi n/1.7 3 >=60 Not Available [facility] [address] [place], [address], 03/16/2022 22:07:03 03/15/20 22 03/16/2022 COMP. METAB OLIC PANEL (14) BUN/creatini ne ratio 18.3 Not Available [facility] Department [address] [place], [address], 03/16/2022 22:07:03 03/15/20 22 03/16/2022 COMP. METAB OLIC PANEL (14) sodium 134.0 mmol/ L 136.0- 144.0 below low normal Not Available [facility] [address] [place], [address], 03/16/2022 22:07:03 03/15/20 22 03/16/2022 COMP. METAB OLIC PANEL (14) potassium 4.6 mmol/ L 3.5-5. 3 Not Available [facility] [address] [place], [address], 03/16/2022 22:07:03 03/15/20 22 03/16/2022 COMP. METAB OLIC PANEL (14) chloride 94 mmol/ l 101-11 1 below low normal Not Available [facility] [address] [place], [address], 03/16/2022 22:07:03 03/15/20 22 03/16/2022 COMP. METAB OLIC PANEL (14) carbon dioxide, total 25.7 mmol/ L 21.0-3 2.0 Not Available [facility] [address] [place], [address], 03/16/2022 22:07:03 03/15/20 22 03/16/2022 COMP. METAB OLIC PANEL (14) calcium 10.0 mg/dL 8.2-10 .0 Not Available [facility] Department [address] [place] [address], [address], 03/16/2022 22:07:03 03/15/20 22 03/16/2022 COMP. METAB OLIC PANEL (14) protein, total 9.6 g/dL 6.7-8. 2 above high normal Not Available [facility] [address] [place], [address], 03/16/2022 22:07:03 03/15/20 22 03/16/2022 COMP. METAB OLIC PANEL (14) albumin 3.7 g/dL 3.5-5. 5 Not Available [facility] [address] [place], [address], 03/16/2022 22:07:03 03/15/20 22 03/16/2022 COMP. METAB OLIC PANEL (14) globulin, total 5.9 g/dL 1.5-4. 5 above high normal Not Available [facility] [address] [place], [address], 03/16/2022 22:07:03 03/15/20 22 03/16/2022 COMP. METAB OLIC PANEL (14) A/G ratio 0.6 Not Available [facility] Department [address] [place], [address], 03/16/2022 22:07:03 03/15/20 22 03/16/2022 COMP. METAB OLIC PANEL (14) bilirubin, total 0.6 mg/dL 0.0-1. 2 Not Available [facility] [address] [place], [address], 03/16/2022 22:07:03 03/15/20 22 03/16/2022 COMP. METAB OLIC PANEL (14) alkaline phosphatase 458.7 IU/L 42.0-1 21.0 above high normal Not Available [facility] [address] [place], [address], 03/16/2022 22:07:03 03/15/20 22 03/16/2022 COMP. METAB OLIC PANEL (14) AST (SGOT) 34.9 U/L 10.0-4 2.0 Not Available [facility] [address] [place], [address], 03/16/2022 22:07:03 03/15/20 22 03/16/2022 COMP. METAB OLIC PANEL (14) ALT (SGPT) 31.6 U/L 10.0-6 0.0 Not Available [facility] [address] [place], [address], 03/16/2022 22:07:03 03/15/20 22 03/16/2022 CBC WITH DIFFE RENTI AL/PL ATELE T WBC 10.2 K/uL 3.4-10 .8 Not Available [facility] [address] [place], [address], 03/16/2022 22:07:03 03/15/20 22 03/16/2022 CBC WITH DIFFE RENTI AL/PL ATELE T RBC 4.8 M/uL 4.5-6. 3 Not Available [facility] [address] [place], [address], 03/16/2022 22:07:03 03/15/20 22 03/16/2022 CBC WITH DIFFE RENTI AL/PL ATELE T hemoglobin 14.1 g/dL 13.5-1 7.5 Not Available [facility] [address] [place], [address], 03/16/2022 22:07:03 03/15/20 22 03/16/2022 CBC WITH DIFFE RENTI AL/PL ATELE T hematocrit 44.4 % 40.0-5 2.0 Not Available [facility] [address] [place], [address], 03/16/2022 22:07:03 03/15/20 22 03/16/2022 CBC WITH DIFFE RENTI AL/PL ATELE T MCV 93 fL 80-95 Not Available [facility] Department [address] [place], [address], 03/16/2022 22:07:03 03/15/20 22 03/16/2022 CBC WITH DIFFE RENTI AL/PL ATELE T MCH 30 pg 27-32 Not Available [facility] Department [address] [place], [address], 03/16/2022 22:07:03 03/15/20 22 03/16/2022 CBC WITH DIFFE RENTI AL/PL ATELE T MCHC 32 g/dL 32-36 Not Available [facility] [address] [place], [address], 03/16/2022 22:07:03 03/15/20 22 03/16/2022 CBC WITH DIFFE RENTI AL/PL ATELE T RDW 12.8 % 11.5-1 4.5 Not Available [facility] [address] [place], [address], 03/16/2022 22:07:03 03/15/20 22 03/16/2022 CBC WITH DIFFE RENTI AL/PL ATELE T platelets 317 K/uL 155-37 9 MPV 10.6 FL 8.9-1 2.7 N Not Available [facility] [address] [place], [address], 03/16/2022 22:07:03 03/15/20 22 03/16/2022 CBC WITH DIFFE RENTI AL/PL ATELE T neutrophils 74.2 % 40.0-7 4.0 above high normal Not Available [facility] [address] [place], [address], 03/16/2022 22:07:03 03/15/20 22 03/16/2022 CBC WITH DIFFE RENTI AL/PL ATELE T lymphs 12.8 % 14.0-4 6.0 below low normal Not Available [facility] [address] [place], [address], 03/16/2022 22:07:03 03/15/20 22 03/16/2022 CBC WITH DIFFE RENTI AL/PL ATELE T monocytes 8.2 % 4.0-12 .0 Not Available [facility] [address] [place], [address], 03/16/2022 22:07:03 03/15/20 22 03/16/2022 CBC WITH DIFFE RENTI AL/PL ATELE T eos 3 % 0-5 Not Available [facility] [address] [place], [address], 03/16/2022 22:07:03 03/15/20 22 03/16/2022 CBC WITH DIFFE RENTI AL/PL ATELE T basos 0.7 % 0.0-1. 0 Not Available [facility] [address] [place], [address], 03/16/2022 22:07:03 03/15/20 22 03/16/2022 CBC WITH DIFFE RENTI AL/PL ATELE T neutrophils (absolute) 7.6 K/uL 1.4-7. 0 above high normal Not Available [facility] [address] [place], [address], 03/16/2022 22:07:03 03/15/20 22 03/16/2022 CBC WITH DIFFE RENTI AL/PL ATELE T lymphs (absolute) 1.3 K/uL 0.7-3. 1 Not Available [facility] [address] [place], [address], 03/16/2022 22:07:03 03/15/20 22 03/16/2022 CBC WITH DIFFE RENTI AL/PL ATELE T monocytes(ab solute) 0.8 K/uL 0.1-0. 9 Not Available [facility] [address] [place], [address], 03/16/2022 22:07:03 03/15/20 22 03/16/2022 CBC WITH DIFFE RENTI AL/PL ATELE T eos (absolute) 0.3 K/uL 0.0-0. 4 Not Available [facility] [address] [place], [address], 03/16/2022 22:07:03 03/15/20 22 03/16/2022 CBC WITH DIFFE RENTI AL/PL ATELE T baso (absolute) 0.1 K/uL 0.0-0. 3 Not Available [facility] [address] [place], [address], 03/16/2022 22:07:03 03/15/20 22 03/16/2022 CBC WITH DIFFE RENTI AL/PL ATELE T immature granulocytes 1.5 % Not Available [facility] Department [address] [place], [address], 03/16/2022 22:07:03 03/15/20 22 03/16/2022 CBC WITH DIFFE RENTI AL/PL ATELE T immature grans (abs) 0.2 K/uL Not Available [facility] Department [address] [place], [address], 03/16/2022 22:07:03 03/15/20 22 03/16/2022 CBC WITH DIFFE RENTI AL/PL ATELE T NRBC 0 % Not Available [facility] [address] [place], [address], 03/16/2022 22:07:03 03/15/20 22 03/16/2022 HCV RNA BY PCR, QN RFX STEPHANIE test information: Commen t The quant itati ve range of this assay is 15 IU/mL to 100 angelo on IU/mL . Not Available [facility] ([facility]) [address] [facility], [place], [address], 03/20/2022 22:06:53 03/15/20 22 03/19/2022 HCV RNA BY PCR, QN RFX STEPHANIE hepatitis C quantitation [id number] 0 IU/mL Not Available [facility] ([facility]) [address] [facility], [place], [address], 03/20/2022 22:06:53 03/15/20 22 03/19/2022 HCV RNA BY PCR, QN RFX STEPHANIE HCV log10 6.954 log10 _IU/m L Not Available [facility] ([facility]) [address] [facility], [place], [address], 03/20/2022 22:06:53 03/15/20 22 03/19/2022 HCV RNA BY PCR, QN RFX STEPHANIE HCV genotype Commen t To be perfo rmed on this speci men. Not Available [facility] ([facility]) [address] [facility], [place], [address], 03/20/2022 22:06:53 03/15/20 22 03/17/2022 HIV AB/P2 4 AG WITH REFLE X HIV Ab/P24 Ag screen Non Reacti ve nonrea ctive HIV Negat juan HIV-1 /HIV- 2 antib odies and HIV-1 p24 antig en were NOT detec cole. There is no labor atory evide nce of HIV infec tion. Not Available [facility] ([facility]) [address] [facility], [place], [address], 03/20/2022 22:06:54 03/15/20 22 03/19/2022 HEPAT ITIS C GENOT YPE please note: Commen t This test was devel oped and its perfo rmanc e ingrid cteri stics deter mined by [facility]. It has not been clear ed or appro charissa by the U.S. Food and Drug Admin istra tion. The FDA has deter mined that such clear ance or appro chasidy is not neces piedad. This test is used for clini samuel purpo ses. It shoul d not be regar ded as inves tigat ional or for resea [facility]. Not Available [facility] ([facility]) [address] [facility], [place], [address], 03/20/2022 22:06:54 03/15/20 22 03/20/2022 HEPAT ITIS C GENOT YPE hepatitis C genotype 1b Not Available [facility] ([facility]) [address] [facility], [place], [address], 03/20/2022 22:06:54 05/20/19 23 05/20/2022 COMP. METAB OLIC PANEL (14) glucose 104 mg/dL 65-99 above high normal ANION GP 22.0 mmol/ L N OSMOL 277.0 mOsM/ L N REFER ENCE RANGE : 275.0 -301. 0 Not Available [facility] Department [address] [place] [address], [address], 05/20/2022 22:07:38 05/20/19 23 05/20/2022 COMP. METAB OLIC PANEL (14) BUN 11 mg/dL 8-26 Not Available [facility] [address] [place], [address], 05/20/2022 22:07:38 05/20/19 23 05/20/2022 COMP. METAB OLIC PANEL (14) creatinine 0.71 mg/dL 0.50-1 .40 Not Available [facility] [address] [place], [address], 05/20/2022 22:07:38 05/20/19 23 05/20/2022 COMP. METAB OLIC PANEL (14) eGFR 102 mL/mi n/1.7 3 >=60 Not Available [facility] [address] [place] [address], [address], 05/20/2022 22:07:38 05/20/19 23 05/20/2022 COMP. METAB OLIC PANEL (14) BUN/creatini ne ratio 16.1 Not Available [facility] Department [address] [place], [address], 05/20/2022 22:07:38 05/20/19 23 05/20/2022 COMP. METAB OLIC PANEL (14) sodium 138.6 mmol/ L 136.0- 144.0 Not Available [facility] [address] [place], [address], 05/20/2022 22:07:38 05/20/19 23 05/20/2022 COMP. METAB OLIC PANEL (14) potassium 4.0 mmol/ L 3.5-5. 3 Not Available [facility] [address] [place], [address], 05/20/2022 22:07:38 05/20/19 23 05/20/2022 COMP. METAB OLIC PANEL (14) chloride 100 mmol/ l 101-11 1 below low normal Not Available [facility] [address] [place], [address], 05/20/2022 22:07:38 05/20/19 23 05/20/2022 COMP. METAB OLIC PANEL (14) carbon dioxide, total 21.4 mmol/ L 21.0-3 2.0 Not Available [facility] [address] [place], [address], 05/20/2022 22:07:38 05/20/19 23 05/20/2022 COMP. METAB OLIC PANEL (14) calcium 9.6 mg/dL 8.2-10 .0 Not Available [facility] [address] [place], [address], 05/20/2022 22:07:38 05/20/19 23 05/20/2022 COMP. METAB OLIC PANEL (14) protein, total 8.7 g/dL 6.7-8. 2 above high normal Not Available [facility] [address] [place] [address], [address], 05/20/2022 22:07:38 05/20/19 23 05/20/2022 COMP. METAB OLIC PANEL (14) albumin 3.7 g/dL 3.5-5. 5 Not Available [facility] [address] [place], [address], 05/20/2022 22:07:38 05/20/19 23 05/20/2022 COMP. METAB OLIC PANEL (14) globulin, total 5.0 g/dL 1.5-4. 5 above high normal Not Available [facility] [address] [place], [address], 05/20/2022 22:07:38 05/20/19 23 05/20/2022 COMP. METAB OLIC PANEL (14) A/G ratio 0.7 Not Available [facility] [address] [place], [address], 05/20/2022 22:07:38 05/20/19 23 05/20/2022 COMP. METAB OLIC PANEL (14) bilirubin, total 0.4 mg/dL 0.0-1. 2 Not Available [facility] [address] [place], [address], 05/20/2022 22:07:38 05/20/19 23 05/20/2022 COMP. METAB OLIC PANEL (14) alkaline phosphatase 309.4 IU/L 42.0-1 21.0 above high normal Not Available [facility] [address] [place], [address], 05/20/2022 22:07:38 05/20/19 23 05/20/2022 COMP. METAB OLIC PANEL (14) AST (SGOT) 41.8 U/L 10.0-4 2.0 Not Available [facility] [address] [place], [address], 05/20/2022 22:07:38 05/20/19 23 05/20/2022 COMP. METAB OLIC PANEL (14) ALT (SGPT) 41.3 U/L 10.0-6 0.0 Not Available [facility] [address] [place], [address], 05/20/2022 22:07:38 05/20/19 23 05/20/2022 CBC WITH DIFFE RENTI AL/PL ATELE T WBC 7.5 K/uL 3.4-10 .8 Not Available [facility] [address] [place], [address], 05/20/2022 22:07:39 05/20/19 23 05/20/2022 CBC WITH DIFFE RENTI AL/PL ATELE T RBC 4.7 M/uL 4.5-6. 3 Not Available [facility] [address] [place], [address], 05/20/2022 22:07:39 05/20/19 23 05/20/2022 CBC WITH DIFFE RENTI AL/PL ATELE T hemoglobin 13.6 g/dL 13.5-1 7.5 Not Available [facility] [address] [place], [address], 05/20/2022 22:07:39 05/20/19 23 05/20/2022 CBC WITH DIFFE RENTI AL/PL ATELE T hematocrit 41.9 % 40.0-5 2.0 Not Available [facility] [address] [place], [address], 05/20/2022 22:07:39 05/20/19 23 05/20/2022 CBC WITH DIFFE RENTI AL/PL ATELE T MCV 90 fL 80-95 Not Available [facility] [address] [place], [address], 05/20/2022 22:07:39 05/20/19 23 05/20/2022 CBC WITH DIFFE RENTI AL/PL ATELE T MCH 29 pg 27-32 Not Available [facility] [address] [place], [address], 05/20/2022 22:07:39 05/20/19 23 05/20/2022 CBC WITH DIFFE RENTI AL/PL ATELE T MCHC 33 g/dL 32-36 Not Available [facility] [address] [place], [address], 05/20/2022 22:07:39 05/20/19 23 05/20/2022 CBC WITH DIFFE RENTI AL/PL ATELE T RDW 14.0 % 11.5-1 4.5 Not Available [facility] [address] [place], [address], 05/20/2022 22:07:39 05/20/19 23 05/20/2022 CBC WITH DIFFE RENTI AL/PL ATELE T platelets 318 K/uL 155-37 9 MPV 11.0 FL 8.9-1 2.7 N Not Available [facility] [address] [facility], [place], [address], 05/20/2022 22:07:39 05/20/19 23 05/20/2022 CBC WITH DIFFE RENTI AL/PL ATELE T neutrophils 63.6 % 40.0-7 4.0 Not Available [facility] [address] [place], [address], 05/20/2022 22:07:39 05/20/19 23 05/20/2022 CBC WITH DIFFE RENTI AL/PL ATELE T lymphs 19.0 % 14.0-4 6.0 Not Available [facility] [address] [place], [address], 05/20/2022 22:07:39 05/20/19 23 05/20/2022 CBC WITH DIFFE RENTI AL/PL ATELE T monocytes 7.6 % 4.0-12 .0 Not Available [facility] [address] [place], [address], 05/20/2022 22:07:39 02/02/20 23 05/20/2022 CBC WITH DIFFE RENTI AL/PL ATELE T eos 7 % 0-5 above high normal Not Available [facility] [address] [place], [address], 05/20/2022 22:07:39 05/20/19 23 05/20/2022 CBC WITH DIFFE RENTI AL/PL ATELE T basos 0.8 % 0.0-1. 0 Not Available [facility] [address] [place], [address], 05/20/2022 22:07:39 05/20/19 23 05/20/2022 CBC WITH DIFFE RENTI AL/PL ATELE T neutrophils (absolute) 4.8 K/uL 1.4-7. 0 Not Available [facility] [address] [place], [address], 05/20/2022 22:07:39 05/20/19 23 05/20/2022 CBC WITH DIFFE RENTI AL/PL ATELE T lymphs (absolute) 1.4 K/uL 0.7-3. 1 Not Available [facility] [address] [place], [address], 05/20/2022 22:07:39 05/20/19 23 05/20/2022 CBC WITH DIFFE RENTI AL/PL ATELE T monocytes(ab solute) 0.6 K/uL 0.1-0. 9 Not Available [facility] [address] [place], [address], 05/20/2022 22:07:39 05/20/19 23 05/20/2022 CBC WITH DIFFE RENTI AL/PL ATELE T eos (absolute) 0.5 K/uL 0.0-0. 4 above high normal Not Available [facility] [address] [place], [address], 05/20/2022 22:07:39 05/20/19 23 05/20/2022 CBC WITH DIFFE RENTI AL/PL ATELE T baso (absolute) 0.1 K/uL 0.0-0. 3 Not Available [facility] [address] [place], [address], 05/20/2022 22:07:39 05/20/19 23 05/20/2022 CBC WITH DIFFE RENTI AL/PL ATELE T immature granulocytes 1.9 % Not Available [facility] [address] [place], [address], 05/20/2022 22:07:39 05/20/19 23 05/20/2022 CBC WITH DIFFE RENTI AL/PL ATELE T immature grans (abs) 0.1 K/uL Not Available [facility] [address] [place], [address], 05/20/2022 22:07:39 05/20/19 23 05/20/2022 CBC WITH DIFFE RENTI AL/PL ATELE T NRBC 0 % Not Available [facility] [address] [place], [address], 05/20/2022 22:07:39 05/20/19 23 05/21/2022 ALBUM IN/CR EATIN INE RATIO ,URIN E creatinine, urine 179.4 mg/dL notest ab. Not Available [facility] ([facility]) [address] [place], [address], 05/21/2022 11:12:47 05/20/19 23 05/21/2022 ALBUM IN/CR EATIN INE RATIO ,URIN E albumin, urine 11.7 ug/mL notest ab. Not Available [facility] ([facility]) [address] [place], [address], 05/21/2022 11:12:47 05/20/19 23 05/21/2022 ALBUM IN/CR EATIN INE RATIO ,URIN E alb/creat ratio 7 mg/g_ creat 0-29 Brenda l: 0 - 29 Moder ately incre ased: 30 - 300 Sever kamran incre ased: >300 Not Available [facility] ([facility]) [address] [place], [address], 05/21/2022 11:12:47 05/20/19 23 05/20/2022 HbA1c (hemo globi n A1c), blood HbA1c 5.7% Not Available In-Office Order Internal Use Only DO Not Attach Compendium DO Not Attach Compendium, Do Not Delete/merge, [id number] 05/20/2022 15:45:07 09/22/19 23 09/22/2022 ALBUM IN/CR EATIN INE RATIO ,URIN E creatinine, urine 194.2 mg/dL notest ab. Not Available [facility] ([facility]) [address] [place], [address], 09/22/2022 21:08:04 09/22/19 23 09/22/2022 ALBUM IN/CR EATIN INE RATIO ,URIN E albumin, urine 17.1 ug/mL notest ab. Not Available [facility] ([facility]) [address] [place], [address], 09/22/2022 21:08:04 09/22/19 23 09/22/2022 ALBUM IN/CR EATIN INE RATIO ,URIN E alb/creat ratio 9 mg/g_ creat 0-29 Brenda l: 0 - 29 Moder ately incre ased: 30 - 300 Sever kamran incre ased: >300 Not Available [facility] ([facility]) [address] [place], [address], 09/22/2022 21:08:04 09/22/19 23 09/22/2022 COMP. METAB OLIC PANEL (14) glucose 108 mg/dL 70-99 above high normal Not Available [facility] ([facility]) [address] [place], [address], 09/22/2022 21:08:05 09/22/19 23 09/22/2022 COMP. METAB OLIC PANEL (14) BUN 11 mg/dL 8-27 Not Available [facility] ([facility]) [address] [facility] [place], [address], 09/22/2022 21:08:05 09/22/19 23 09/22/2022 COMP. METAB OLIC PANEL (14) creatinine 0.70 mg/dL 0.76-1 .27 below low normal Not Available [facility] ([facility]) [address] [facility] [place], [address], 09/22/2022 21:08:05 09/22/19 23 09/22/2022 COMP. METAB OLIC PANEL (14) eGFR 103 mL/mi n/1.7 3 >59 Not Available [facility] ([facility]) [address] [place], [address], 09/22/2022 21:08:05 09/22/19 23 09/22/2022 COMP. METAB OLIC PANEL (14) BUN/creatini ne ratio 16 10-24 Not Available [facility] ([facility]) [address] [place], [address], 09/22/2022 21:08:05 09/22/19 23 09/22/2022 COMP. METAB OLIC PANEL (14) sodium 138 mmol/ L 134-14 4 Not Available [facility] ([facility]) [address] [place], [address], 09/22/2022 21:08:05 09/22/19 23 09/22/2022 COMP. METAB OLIC PANEL (14) potassium 4.4 mmol/ L 3.5-5. 2 Not Available [facility] ([facility]) [address] [place], [address], 09/22/2022 21:08:05 09/22/19 23 09/22/2022 COMP. METAB OLIC PANEL (14) chloride 95 mmol/ L 96-106 below low normal Not Available [facility] [address] [facility] [place] [address], 09/22/2022 21:08:05 09/22/19 23 09/22/2022 COMP. METAB OLIC PANEL (14) carbon dioxide, total 28 mmol/ L 20-29 Not Available [facility] ([facility]) [address] [facility] [place], [address], 09/22/2022 21:08:05 09/22/19 23 09/22/2022 COMP. METAB OLIC PANEL (14) calcium 9.1 mg/dL 8.6-10 .2 Not Available [facility] [address] [place] [place], [address], 09/22/2022 21:08:05 09/22/19 23 09/22/2022 COMP. METAB OLIC PANEL (14) protein, total 8.5 g/dL 6.0-8. 5 Not Available [facility] ([facility] [address] [place], [address], 09/22/2022 21:08:05 09/22/19 23 09/22/2022 COMP. METAB OLIC PANEL (14) albumin 3.6 g/dL 3.8-4. 8 below low normal Not Available [facility] ([facility]) [address] [facility] [place], [address], 09/22/2022 21:08:05 09/22/19 23 09/22/2022 COMP. METAB OLIC PANEL (14) globulin, total 4.9 g/dL 1.5-4. 5 above high normal Not Available [facility] ([facility]) [address] [facility] [place], [address], 09/22/2022 21:08:05 09/22/19 23 09/22/2022 COMP. METAB OLIC PANEL (14) A/G ratio 0.7 1.2-2. 2 below low normal Not Available [facility] ([facility]) [address] [facility] [place], [address], 09/22/2022 21:08:05 09/22/19 23 09/22/2022 COMP. METAB OLIC PANEL (14) bilirubin, total 1.0 mg/dL 0.0-1. 2 Not Available [facility] ([facility]) [address] [facility] [place], [address], 09/22/2022 21:08:05 09/22/19 23 09/22/2022 COMP. METAB OLIC PANEL (14) alkaline phosphatase 221 IU/L 44-121 above high normal Not Available [facility] ([facility]) [address] [facility] [place], [address], 09/22/2022 21:08:05 09/22/19 23 09/22/2022 COMP. METAB OLIC PANEL (14) AST (SGOT) 13 IU/L 0-40 Not Available [facility] ([facility]) [address] [facility] [place], [address], 09/22/2022 21:08:05 09/22/19 23 09/22/2022 COMP. METAB OLIC PANEL (14) ALT (SGPT) 6 IU/L 0-44 Not Available [facility] ([facility]) [address] [facility] [place], [address], 09/22/2022 21:08:05 09/22/19 23 09/22/2022 CBC WITH DIFFE RENTI AL/PL ATELE T WBC 6.6 x10e3 /uL 3.4-10 .8 Not Available [facility] ([facility]) [address] [facility] [place], [address], 09/22/2022 21:08:06 09/22/19 23 09/22/2022 CBC WITH DIFFE RENTI AL/PL ATELE T RBC 5.12 x10e6 /uL 4.14-5 .80 Not Available [facility] ([facility]) [address] [place], [address], 09/22/2022 21:08:06 09/22/19 23 09/22/2022 CBC WITH DIFFE RENTI AL/PL ATELE T hemoglobin 14.2 g/dL 13.0-1 7.7 Not Available [facility] ([facility]) [address] [place], [address], 09/22/2022 21:08:06 09/22/19 23 09/22/2022 CBC WITH DIFFE RENTI AL/PL ATELE T hematocrit 46.5 % 37.5-5 1.0 Not Available [facility] ([facility]) [address] [facility], [place], [address], 09/22/2022 21:08:06 09/22/19 23 09/22/2022 CBC WITH DIFFE RENTI AL/PL ATELE T MCV 91 fL 79-97 Not Available [facility] ([facility]) [address] [place], [address], 09/22/2022 21:08:06 09/22/19 23 09/22/2022 CBC WITH DIFFE RENTI AL/PL ATELE T MCH 27.7 pg 26.6-3 3.0 Not Available [facility] ([facility]) [address] [place], [address], 09/22/2022 21:08:06 09/22/19 23 09/22/2022 CBC WITH DIFFE RENTI AL/PL ATELE T MCHC 30.5 g/dL 31.5-3 5.7 below low normal Not Available [facility] ([facility]) [address] [place], [address], 09/22/2022 21:08:06 09/22/19 23 09/22/2022 CBC WITH DIFFE RENTI AL/PL ATELE T RDW 13.3 % 11.6-1 5.4 Not Available [facility] ([facility]) [address] [facility], [place], [address], 09/22/2022 21:08:06 09/22/19 23 09/22/2022 CBC WITH DIFFE RENTI AL/PL ATELE T platelets 283 x10e3 /uL 150-45 0 Not Available [facility] ([facility]) [address] [facility], [place], [address], 09/22/2022 21:08:06 09/22/19 23 09/22/2022 CBC WITH DIFFE RENTI AL/PL ATELE T neutrophils 64 % notest ab. Not Available [facility] ([facility]) [address] [facility], [place], [address], 09/22/2022 21:08:06 09/22/19 23 09/22/2022 CBC WITH DIFFE RENTI AL/PL ATELE T lymphs 19 % notest ab. Not Available [facility] ([facility]) [address] [facility], [place], [address], 09/22/2022 21:08:06 09/22/19 23 09/22/2022 CBC WITH DIFFE RENTI AL/PL ATELE T monocytes 9 % notest ab. Not Available [facility] ([facility]) [address] [facility], [place], [address], 09/22/2022 21:08:06 09/22/19 23 09/22/2022 CBC WITH DIFFE RENTI AL/PL ATELE T eos 6 % notest ab. Not Available [facility] ([facility]) [address] [facility], [place], [address], 09/22/2022 21:08:06 09/22/19 23 09/22/2022 CBC WITH DIFFE RENTI AL/PL ATELE T basos 1 % notest ab. Not Available [facility] ([facility]) [address] [facility], [place], [address], 09/22/2022 21:08:06 09/22/19 23 09/22/2022 CBC WITH DIFFE RENTI AL/PL ATELE T neutrophils (absolute) 4.2 x10e3 /uL 1.4-7. 0 Not Available [facility] ([facility]) [address] [facility], [place], [address], 09/22/2022 21:08:06 09/22/19 23 09/22/2022 CBC WITH DIFFE RENTI AL/PL ATELE T lymphs (absolute) 1.3 x10e3 /uL 0.7-3. 1 Not Available [facility] ([facility]) [address] [place], [address], 09/22/2022 21:08:06 09/22/19 23 09/22/2022 CBC WITH DIFFE RENTI AL/PL ATELE T monocytes(ab solute) 0.6 x10e3 /uL 0.1-0. 9 Not Available [facility] ([facility]) [address] [place], [address], 09/22/2022 21:08:06 09/22/19 23 09/22/2022 CBC WITH DIFFE RENTI AL/PL ATELE T eos (absolute) 0.4 x10e3 /uL 0.0-0. 4 Not Available [facility] ([facility]) [address] [place], [address], 09/22/2022 21:08:06 09/22/19 23 09/22/2022 CBC WITH DIFFE RENTI AL/PL ATELE T baso (absolute) 0.1 x10e3 /uL 0.0-0. 2 Not Available [facility] ([facility]) [address] [place], [address], 09/22/2022 21:08:06 09/22/19 23 09/22/2022 CBC WITH DIFFE RENTI AL/PL ATELE T immature granulocytes 1 % notest ab. Not Available [facility] ([facility]) [address] [place], [address], 09/22/2022 21:08:06 09/22/19 23 09/22/2022 CBC WITH DIFFE RENTI AL/PL ATELE T immature grans (abs) 0.1 x10e3 /uL 0.0-0. 1 Not Available [facility] ([facility]) [address] [place], [address], 09/22/2022 21:08:06 09/22/19 23 09/22/2022 HEMOG LOBIN A1C hemoglobin A1C 6.1 % 4.8-5. 6 above high normal Predi abete s: 5.7 - 6.4 Diabe lizzy: >6.4 Glyce jay jay contr ol for adult s with diabe lizzy: <7.0 Not Available [facility] ([facility]) [address] [place], [address], 09/22/2022 21:08:05 06/11/19 25 06/12/2024 LIPID PANEL cholesterol, total 199 mg/dL 100-19 9 Not Available [facility] ([facility]) [address] [place], [address], 06/12/2024 08:24:19 06/11/19 25 06/12/2024 LIPID PANEL triglyceride s 90 mg/dL 0-149 Not Available [facility] ([facility]) [address] [place], [address], 06/12/2024 08:24:19 06/11/19 25 06/12/2024 LIPID PANEL HDL cholesterol 53 mg/dL >39 Not Available [facility] ([facility]) [address] [place], [address], 06/12/2024 08:24:19 06/11/19 25 06/12/2024 LIPID PANEL VLDL cholesterol samuel 16 mg/dL 5-40 Not Available [facility] ([facility]) [address] [place], [address], 06/12/2024 08:24:19 06/11/19 25 06/12/2024 LIPID PANEL LDL chol calc ([facility]) 130 mg/dL 0-99 above high normal Not Available [facility] ([facility]) [address] [facility] [place], [address], 06/12/2024 08:24:19 06/11/19 25 06/12/2024 COMP. METAB OLIC PANEL (14) glucose 93 mg/dL 70-99 Not Available [facility] ([facility]) [address] [facility] [place], [address], 06/12/2024 08:24:21 06/11/19 25 06/12/2024 COMP. METAB OLIC PANEL (14) BUN 11 mg/dL 8-27 Not Available [facility] ([facility]) [address] [place], [address], 06/12/2024 08:24:21 06/11/19 25 06/12/2024 COMP. METAB OLIC PANEL (14) creatinine 0.62 mg/dL 0.76-1 .27 below low normal Not Available [facility] ([facility]) [address] [place], [address], 06/12/2024 08:24:21 06/11/19 25 06/12/2024 COMP. METAB OLIC PANEL (14) eGFR 105 mL/mi n/1.7 3 >59 Not Available [facility] ([facility]) [address] [place], [address], 06/12/2024 08:24:21 06/11/19 25 06/12/2024 COMP. METAB OLIC PANEL (14) BUN/creatini ne ratio 18 10-24 Not Available [facility] ([facility]) [address] [place], [address], 06/12/2024 08:24:21 02/24/20 25 06/12/2024 COMP. METAB OLIC PANEL (14) sodium 140 mmol/ L 134-14 4 Not Available [facility] ([facility]) [address] [place], [address], 06/12/2024 08:24:21 06/11/19 25 06/12/2024 COMP. METAB OLIC PANEL (14) potassium 4.4 mmol/ L 3.5-5. 2 Not Available [facility] ([facility]) [address] [place], [address], 06/12/2024 08:24:21 06/11/19 25 06/12/2024 COMP. METAB OLIC PANEL (14) chloride 99 mmol/ L 96-106 Not Available [facility] ([facility]) [address] [place], [address], 06/12/2024 08:24:21 06/11/19 25 06/12/2024 COMP. METAB OLIC PANEL (14) carbon dioxide, total 26 mmol/ L 20-29 Not Available [facility] ([facility]) [address] [place], [address], 06/12/2024 08:24:21 06/11/19 25 06/12/2024 COMP. METAB OLIC PANEL (14) calcium 9.3 mg/dL 8.6-10 .2 Not Available [facility] ([facility]) [address] [place], [address], 06/12/2024 08:24:21 06/11/19 25 06/12/2024 COMP. METAB OLIC PANEL (14) protein, total 7.7 g/dL 6.0-8. 5 Not Available [facility] ([facility]) [address] [place], [address], 06/12/2024 08:24:21 06/11/19 25 06/12/2024 COMP. METAB OLIC PANEL (14) albumin 3.8 g/dL 3.9-4. 9 below low normal Not Available [facility] ([facility]) [address] [facility] [place], [address], 06/12/2024 08:24:21 06/11/19 25 06/12/2024 COMP. METAB OLIC PANEL (14) globulin, total 3.9 g/dL 1.5-4. 5 Not Available [facility] ([facility]) [address] [facility] [place], [address], 06/12/2024 08:24:21 06/11/19 25 06/12/2024 COMP. METAB OLIC PANEL (14) bilirubin, total 0.3 mg/dL 0.0-1. 2 Not Available [facility] ([facility]) [address] [facility] [place], [address], 06/12/2024 08:24:21 06/11/19 25 06/12/2024 COMP. METAB OLIC PANEL (14) alkaline phosphatase 113 IU/L 44-121 Not Available [facility] ([facility]) [address] [facility] [place], [address], 06/12/2024 08:24:21 06/11/19 25 06/12/2024 COMP. METAB OLIC PANEL (14) AST (SGOT) 15 IU/L 0-40 Not Available [facility] ([facility]) [address] [facility] [place], [address], 06/12/2024 08:24:21 06/11/19 25 06/12/2024 COMP. METAB OLIC PANEL (14) ALT (SGPT) 9 IU/L 0-44 Not Available [facility] ([facility]) [address] [facility] [place], [address], 06/12/2024 08:24:21 06/11/19 25 06/12/2024 URINA LYSIS , ROUTI NE specific gravity 1.013 1.005- 1.030 Not Available [facility] ([facility]) [address] [place], [address], 06/12/2024 08:24:22 06/11/1906/12/2024 URINA LYSIS , ROUTI NE pH 6.0 5.0-7. 5 Not Available [facility] ([facility]) [address] [place], [address], 06/12/2024 08:24:22 06/11/19 25 06/12/2024 URINA LYSIS , ROUTI NE urine-color YELLOW yellow Not Available [facility] ([facility]) [address] [place], [address], 06/12/2024 08:24:22 06/11/1906/12/2024 URINA LYSIS , ROUTI NE appearance CLEAR clear Not Available [facility] ([facility]) [address] [place], [address], 06/12/2024 08:24:22 06/11/19 25 06/12/2024 URINA LYSIS , ROUTI NE WBC esterase NEGATI VE negati ve Not Available [facility] ([facility]) [address] [place], [address], 06/12/2024 08:24:22 06/11/19 25 06/12/2024 URINA LYSIS , ROUTI NE protein NEGATI VE negati ve/tra ce Not Available [facility] ([facility]) [address] [place], [address], 06/12/2024 08:24:22 06/11/1906/12/2024 URINA LYSIS , ROUTI NE glucose NEGATI VE negati ve Not Available [facility] ([facility]) [address] [place], [address], 06/12/2024 08:24:22 06/11/19 25 06/12/2024 URINA LYSIS , ROUTI NE ketones NEGATI VE negati ve Not Available [facility] ([facility]) [address] [facility], [place], [address], 06/12/2024 08:24:22 06/11/1906/12/2024 URINA LYSIS , ROUTI NE occult blood NEGATI VE negati ve Not Available [facility] ([facility]) [address] [place], [address], 06/12/2024 08:24:22 06/11/1906/12/2024 URINA LYSIS , ROUTI NE bilirubin NEGATI VE negati ve Not Available [facility] ([facility]) [address] [place], [address], 06/12/2024 08:24:22 06/11/1906/12/2024 URINA LYSIS , ROUTI NE urobilinogen ,semi-qn 0.2 mg/dL 0.2-1. 0 Not Available [facility] ([facility]) [address] [place], [address], 06/12/2024 08:24:22 06/11/1906/12/2024 URINA LYSIS , ROUTI NE nitrite, urine NEGATI VE negati ve Not Available [facility] ([facility]) [address] [place], [address], 06/12/2024 08:24:22 06/11/1906/12/2024 URINA LYSIS , ROUTI NE microscopic examination COMMEN T Micro scopi c not indic ated and not perfo rmed. Not Available [facility] ([facility]) [address] [place], [address], 06/12/2024 08:24:22 06/11/1906/12/2024 CBC WITH DIFFE RENTI AL/PL ATELE T WBC 7.4 x10e3 /uL 3.4-10 .8 Not Available [facility] ([facility]) [address] [place], [address], 06/12/2024 08:24:24 06/11/1906/12/2024 CBC WITH DIFFE RENTI AL/PL ATELE T RBC 4.65 x10e6 /uL 4.14-5 .80 Not Available [facility] ([facility]) [address] [facility], [place], [address], 06/12/2024 08:24:24 06/11/19 25 06/12/2024 CBC WITH DIFFE RENTI AL/PL ATELE T hemoglobin 14.3 g/dL 13.0-1 7.7 Not Available [facility] ([facility]) [address] [place], [address], 06/12/2024 08:24:24 06/11/19 25 06/12/2024 CBC WITH DIFFE RENTI AL/PL ATELE T hematocrit 43.2 % 37.5-5 1.0 Not Available [facility] ([facility]) [address] [place], [address], 06/12/2024 08:24:24 06/11/1906/12/2024 CBC WITH DIFFE RENTI AL/PL ATELE T MCV 93 fL 79-97 Not Available [facility] ([facility]) [address] [place], [address], 06/12/2024 08:24:24 06/11/1906/12/2024 CBC WITH DIFFE RENTI AL/PL ATELE T MCH 30.8 pg 26.6-3 3.0 Not Available [facility] ([facility]) [address] [place], [address], 06/12/2024 08:24:24 06/11/19 25 06/12/2024 CBC WITH DIFFE RENTI AL/PL ATELE T MCHC 33.1 g/dL 31.5-3 5.7 Not Available [facility] ([facility]) [address] [place], [address], 06/12/2024 08:24:24 06/11/19 25 06/12/2024 CBC WITH DIFFE RENTI AL/PL ATELE T RDW 12.0 % 11.6-1 5.4 Not Available [facility] ([facility]) [address], [place], [address], 06/12/2024 08:24:24 06/11/19 25 06/12/2024 CBC WITH DIFFE RENTI AL/PL ATELE T platelets 335 x10e3 /uL 150-45 0 Not Available [facility] ([facility]) [address] [facility], [place], [address], 06/12/2024 08:24:24 06/11/19 25 06/12/2024 CBC WITH DIFFE RENTI AL/PL ATELE T neutrophils 64 % notest ab. Not Available [facility] ([facility]) [address] [facility], [place], [address], 06/12/2024 08:24:24 06/11/19 25 06/12/2024 CBC WITH DIFFE RENTI AL/PL ATELE T lymphs 17 % notest ab. Not Available [facility] ([facility]) [address] [facility], [place], [address], 06/12/2024 08:24:24 06/11/19 25 06/12/2024 CBC WITH DIFFE RENTI AL/PL ATELE T monocytes 10 % notest ab. Not Available [facility] ([facility]) [address] [facility], [place], [address], 06/12/2024 08:24:24 06/11/19 25 06/12/2024 CBC WITH DIFFE RENTI AL/PL ATELE T eos 8 % notest ab. Not Available [facility] ([facility]) [address] [facility], [place], [address], 06/12/2024 08:24:24 06/11/19 06/12/2024 CBC WITH DIFFE RENTI AL/PL ATELE T basos 1 % notest ab. Not Available [facility] ([facility]) [address] [place], [address], 06/12/2024 08:24:24 06/11/19 25 06/12/2024 CBC WITH DIFFE RENTI AL/PL ATELE T neutrophils (absolute) 4.7 x10e3 /uL 1.4-7. 0 Not Available [facility] ([facility]) [address] [place], [address], 06/12/2024 08:24:24 06/11/19 25 06/12/2024 CBC WITH DIFFE RENTI AL/PL ATELE T lymphs (absolute) 1.2 x10e3 /uL 0.7-3. 1 Not Available [facility] ([facility]) [address] [place], [address], 06/12/2024 08:24:24 06/11/19 25 06/12/2024 CBC WITH DIFFE RENTI AL/PL ATELE T monocytes(ab solute) 0.8 x10e3 /uL 0.1-0. 9 Not Available [facility] ([facility]) [address] [place], [address], 06/12/2024 08:24:24 06/11/19 25 06/12/2024 CBC WITH DIFFE RENTI AL/PL ATELE T eos (absolute) 0.6 x10e3 /uL 0.0-0. 4 above high normal Not Available [facility] ([facility]) [address] [place], [address], 06/12/2024 08:24:24 06/11/19 25 06/12/2024 CBC WITH DIFFE RENTI AL/PL ATELE T baso (absolute) 0.0 x10e3 /uL 0.0-0. 2 Not Available [facility] ([facility]) [address] [place], [address], 06/12/2024 08:24:24 06/11/1906/12/2024 CBC WITH DIFFE RENTI AL/PL ATELE T immature granulocytes 0 % notest ab. Not Available [facility] ([facility]) [address] [facility], [place], [address], 06/12/2024 08:24:24 06/11/1906/12/2024 CBC WITH DIFFE RENTI AL/PL ATELE T immature grans (abs) 0.0 x10e3 /uL 0.0-0. 1 Not Available [facility] ([facility]) [address] [facility], [place], [address], 06/12/2024 08:24:24 06/11/1906/12/2024 NT-IA OBNP nt-probnp 99 pg/mL 0-376 The follo wing cut-p oints have been sugge sted for the use of proBN P for the diagn ostic evalu ation of heart failu re (HF) in patie nts with acute dyspn ea: Modal ity Age Optim al Cut (year s) Point ----- ----- ----- ----- ----- ----- ----- ----- ----- ----- ---- Diagn osis (rule in HF) <50 450 pg/mL 50 - 75 900 pg/mL >75 1800 pg/mL Exclu feliberto (rule out HF) Age indep enden t 300 pg/mL Not Available [facility] ([facility]) [address] [place], [address], 06/13/2024 06:25:12 06/11/1906/12/2024 DRUG PROFI LE,UR ,9 DRUGS ,BUND amphetamines , urine NEGATI VE NG/mL cutoff =1000 Amphe tamin e test inclu lennox Amphe tamin e and Metha mphet amine . Not Available [facility] ([facility]) [address] [place], [address], 06/13/2024 06:25:13 06/11/19 25 06/12/2024 DRUG PROFI LE,UR ,9 DRUGS ,BUND barbiturate NEGATI VE NG/mL cutoff =300 Not Available [facility] ([facility]) [address] [place], [address], 06/13/2024 06:25:13 06/11/19 25 06/12/2024 DRUG PROFI LE,UR ,9 DRUGS ,BUND benzodiazepi martin NEGATI VE NG/mL cutoff =300 Not Available [facility] ([facility]) [address] [place], [address], 06/13/2024 06:25:13 06/11/19 25 06/12/2024 DRUG PROFI LE,UR ,9 DRUGS ,BUND cannabinoid NEGATI VE NG/mL cutoff =50 Not Available [facility] ([facility]) [address] [place], [address], 06/13/2024 06:25:13 06/11/19 25 06/12/2024 DRUG PROFI LE,UR ,9 DRUGS ,BUND cocaine (metab.) NEGATI VE NG/mL cutoff =300 Not Available [facility] ([facility]) [address] [place], [address], 06/13/2024 06:25:13 06/11/19 25 06/12/2024 DRUG PROFI LE,UR ,9 DRUGS ,BUND opiates NEGATI VE NG/mL cutoff =300 Opiat e test inclu lennox Codei ne and Morph ine only. Not Available [facility] ([facility]) [address] [place], [address], 06/13/2024 06:25:13 06/11/19 25 06/12/2024 DRUG PROFI LE,UR ,9 DRUGS ,BUND phencyclidin e NEGATI VE NG/mL cutoff =25 Not Available [facility] ([facility]) [address] [facility], [place], [address], 06/13/2024 06:25:13 06/11/19 25 06/12/2024 DRUG PROFI LE,UR ,9 DRUGS ,BUND methadone screen, urine NEGATI VE NG/mL cutoff =300 Not Available [facility] ([facility]) [address] [facility], [place], [address], 06/13/2024 06:25:13 06/11/19 25 06/12/2024 DRUG PROFI LE,UR ,9 DRUGS ,BUND propoxyphene , urine NEGATI VE NG/mL cutoff =300 Eff ectiv e July 16, 2024, this test will be disco ntinu ed. Pleas e conta ct your [facility] repre senta tive for sugge sted repla cemen t test optio ns. Not Available [facility] ([facility]) [address] [facility], [place], [address], 06/13/2024 06:25:13 06/11/19 25 06/12/2024 TSH TSH 3.490 uIU/m L 0.450- 4.500 Not Available [facility] ([facility]) [address] [facility], [place], [address], 06/13/2024 06:25:14 06/11/19 25 06/12/2024 PROST ATE-S PECIF IC AG prostate specific Ag <0.1 NG/mL 0.0-4. 0 Sommer ECLIA metho dolog y. Accor ding to the Ameri can Urolo gical Assoc iatio n, Serum PSA shoul d decre ase and remai n at undet ectab le level s after radic al prost atect viky. The AUA defin es bioch emica l recur rence as an initi al PSA value 0.2 ng/mL or great er follo wed by a subse quent confi rmato ry PSA value 0.2 ng/mL or great er. Value s obtai trisha with diffe rent assay metho ds or kits canno t be used inter gonzalez eably . Resul ts canno t be inter prete d as absol [place] evide nce of the prese nce or absen ce of ana laura portillo se. Not Available [facility] ([facility]) [address] [facility], [place], [address], 06/13/2024 06:25:15 06/11/19 25 06/12/2024 VITAM IN D, 25-HY DROXY vitamin D, 25-hydroxy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
--- OUTSIDE RECORDS SUMMARY | 2024-07-10 20:06 | XMS_ITS | Clinical Summary ---
Author Organization [facility] [place] [address] Address [address] [place] [address] Care Team Providers Care Single Spindle Screw Machine Operator Name Role Phone Tomeka Knight Primary Care [...] (05/14/2022): Added automatically from request for surgery [id number] Obesity (BMI 30.0-34.9) 04/30/2022 Assessment & Plan (04/30/2022 4:49 PM SALES DEPARTMENT SUPERVISOR): Diet and exercise. Right knee pain 04/28/2022 Assessment & Plan (04/29/2022 1:57 PM SALES DEPARTMENT SUPERVISOR): Chronic. Right knee MRI 02/2022 demonstrated fracture of right medial femoral condyle, tear of right medial meniscus, and effusion/synovitis. Ortho recommended non op, WBAT. Has not followed up with ortho after discharge. -Encourage ortho follow up -Voltaren gel -APAP -seen by PT/OT; will discharge with walker and home therapy Assessment & Plan (04/28/2022 1:14 AM SALES DEPARTMENT SUPERVISOR): Chronic. Right knee MRI 02/2022 demonstrated fracture of right medial femoral condyle, tear of right medial meniscus, and effusion/synovitis. Ortho recommended non op, WBAT. Has not followed up with ortho after discharge. -Encourage ortho follow up -Voltaren gel -APAP -PT/OT Alcohol abuse 04/28/2022 Assessment & Plan (04/28/2022 2:18 PM SALES DEPARTMENT SUPERVISOR): Drinks 2- 3 shots before bed. No active withdrawals. -Thiamine, folate -Encourage Cessation -Monitor for withdrawal Assessment & Plan (04/28/2022 1:15 AM SALES DEPARTMENT SUPERVISOR): Drinks 2- 3 shots before bed. No active withdrawals. -Thiamine, folate -Encourage Cessation -Monitor for withdrawal Elevated alkaline phosphatase level 04/28/2022 Assessment & Plan (04/30/2022 4:09 PM SALES DEPARTMENT SUPERVISOR): Unclear etiology. HCV positive. GGTP elevated. Intra and extrahepatic dilatation noted on US; MRI to be performed later this evening. Assessment & Plan (04/28/2022 1:15 AM SALES DEPARTMENT SUPERVISOR): Unclear etiology. HCV positive. -Check GGT and Liver ultrasound for now. HCV (hepatitis C virus) 04/28/2022 Assessment & Plan (04/28/2022 2:20 PM SALES DEPARTMENT SUPERVISOR): Chronic and untreated. Missed ID clinic appointment 04/20/22; stated getting a ride is the problem. -Genotype pending. -Needs outpatient follow up. Assessment & Plan (04/28/2022 1:16 AM SALES DEPARTMENT SUPERVISOR): Chronic and untreated. Missed ID clinic appointment 04/20/22. -Needs outpatient follow up. Acute on chronic diastolic heart failure 023 Assessment & Plan (04/29/2022 1:54 PM SALES DEPARTMENT SUPERVISOR): TTE with normal EF. Previously g1DD and increased RVSP. -S/P 60mg IV Lasix in ED, then 40mg IV BID daily -Will change to Lasix 40mg po 04/30 -Continue metoprolol, statin, ASA Assessment & Plan (04/28/2022 1:17 AM SALES DEPARTMENT SUPERVISOR): TTE with normal EF. Previously g1DD and increased RVSP. Hypervolemic on examination today. -S/P 60mg IV Lasix in ED, continue 40mg IV BID daily -Monitor electrolytes and replete -Continue metoprolol, statin, ASA Venous stasis dermatitis of both lower extremiti es 04/27/2022 Assessment & Plan (04/29/2022 1:54 PM SALES DEPARTMENT SUPERVISOR): Chronic venous stasis dermatitis. No infectious symptoms, [...] following. Assessment & Plan (04/28/2022 1:10 AM SALES DEPARTMENT SUPERVISOR): Chronic venous stasis dermatitis. No infectious symptoms, normal lactate, no fevers, and no WBC making infection less concerning though given ulcer on left lateral leg, cannot rule out superimposed infection. Also has prior dopplers demonstrating chronic DVT at the level of the popliteal vein in the left. Post thrombotic changes could be contributing though bilateral symptoms. Discussed with vascular tier and detonator about AC in chronic DVTs and no [...] 09/20/2020 Assessment & Plan (04/30/2022 4:08 PM SALES DEPARTMENT SUPERVISOR): Elevated total protein thought to be related to HCV. -Check SPEP/UPEP given alk phos elevation. Immunofixation unremarkable. UPEP pending. -Needs to follow up with ID for HCV treatment. Assessment & Plan (04/28/2022 1:13 AM SALES DEPARTMENT SUPERVISOR): Elevatedt total protein thought to be related [...] 08/22/2019 Assessment & Plan (04/30/2022 4:09 PM SALES DEPARTMENT SUPERVISOR): Smokes @ 1ppd -Duonebs for now -Smoking cessation; wants nicotine patch in the hospital; states he has some at home and does not need any prescribed. Assessment & Plan (04/28/2022 1:11 AM SALES DEPARTMENT SUPERVISOR): Wheezing bilaterally. Denies SOB. Still smoking. Not [...] abuse Assessment & Plan (04/30/2022 4:07 PM SALES DEPARTMENT SUPERVISOR): Active use of Fentanyl. No longer followed in clinic for Suboxone; was being followed at [facility] in [place] up until 2mo ago per pt. -Encourage cessation -Seen for substance use. Pt is currently on patch. When discussing f/u at the [facility], he reports that he plans on quitting on his own. On further discussion, he agreed to an appointment - he will be seeing them on Tuesday. Assessment & Plan (04/28/2022 1:12 AM SALES DEPARTMENT SUPERVISOR): Active use of Fentanyl. No longer followed [...] Assessment & Plan (08/22/2019 5:28 AM CDT): [place] most likely to be drug-induced reaction. No [...] How often do you attend chur or church services? Never 02/24/2022 Do you belong to any clubs o r organizations such as rastafarian groups, unions, fraternal or athletic groups, or [...] place to sleep or slept in a group home (including now)? No 02/24/2022 Personal Safety Answer Date Recorded Have you ever been in or are you currently in a harmful physical or emotional relationship or is someone making you feel afraid or unsafe? Denies 11/26/2022 Sex and Gender Information Value Date Recorded Sex Assigned at Not on file Legal Sex Male 6:41 PM SALES DEPARTMENT SUPERVISOR Gender Identity Not on file Sexual Orientation [...] (258 lb 6.4 oz) 06/04/2022 9:57 AM SALES DEPARTMENT SUPERVISOR Height 182.9 cm (6' 0.01 ) 06/04/2022 9:57 AM CS T Body Mass Index 35.04 06/04/2022 9:57 AM SALES DEPARTMENT SUPERVISOR Plan of Treatment Health Maintenance Due Date [...] HEPATITIS C GENOTYPE Routine 06/04/2022 11:06 AM SALES DEPARTMENT SUPERVISOR Acute hepatitis C virus infection without hepatic coma CT ABDOMEN PELVIS WO CONTRAST 09/06/2020 12:00 AM CDT from Last 3 Months or Most Recently Relevant to Health Maintenance Results * Hepatitis C genotype (06/04/2022 11:06 AM SALES DEPARTMENT SUPERVISOR) HCV genotype TNP [facility] Comment: HCV Genotype, S was cancelled on 06/09/2022 at 16:01; Duplicate test request. Test Performed by: [facility] [id number] [place] [address] Livestock Feeder: Harpal Gregory M.D. Ph.D.; CLIA# [id number] Blood 06/04/2022 11:0 6 AM SALES DEPARTMENT SUPERVISOR 06/04/2022 1:32 PM SALES DEPARTMENT SUPERVISOR us Gudelia Singh MD LAB MICROBIOLOGY - GENERAL ORDER TATYANA Final Result [facility] Department of Laboratories [place], [place] [id number] * CT Abdomen Pelvis WO Contrast (09/06/2020 12:00 AM CDT) Anatomical Region Laterality Modality Body N/A Computed Tomogra phy 09/06/2020 2:12 PM CDT Narrative 09/06/2020 2:23 PM CDT Patient Name: OZZY CH Ordering Dr: Francesca Zazueta MDO.B: 1960 Exam Date: 09/06/20 0000 Age: 60 Sex: Male MR#: [id number] Loc: S220-02 RADIOLOGY REPORT Order #[id number] CT Scan CT Abd/Pelvis WO IV Contrast [...] by Danette Maya TS T: Report ID: [id number] Reading Location: [place] [address] REPORT ELECTRONICALLY SIGNED IN OTHER VENDOR SYSTEM Resulting Agency Comment I Procedure Note Danette Maya MD - 09/06/2020 Patient Name: OZZY CH Dr: Francesca Zazueta MD D.O.B: 1960 Exam Date: 09/06/20 0000 Age: 60 Sex: Male MR#: [id number] Loc: S220-02 RADIOLOGY REPORT Order #[id number] CT Scan CT Abd/Pelvis WO IV Contrast [...] by Danette Maya TS T: Report ID: [id number] Reading Location: [id number] REPORT ELECTRONICALLY SIGNED IN OTHER VENDOR SYSTEM Francesca Zazueta MD IMG CT PROCEDUR ES Final Result from Last 3 Months or Most Recently Relevant to Health Maintenance Insurance [facility] [place] [address] [place] [address] Member Subscriber Plan / Payer (Ef fective 2020-Present) Name:Ozzy Ch Relation to Subscriber:Self Name:Ozzy Ch Payer ID:[id number] (NAIC) Type:MEDICAID RISK OTHER Address: ATTN: CLAIMS DEPT [address] [facility] [place] [phone] Advance Directives For more information, please contact: [phone] * Full Code (Latest Code Status on [...] 5:04 AM 08/22/2019 9:25 PM Care Teams Single Spindle Screw Machine Operator Relationship Specialty Start Date End Date Tomeka Knight PA PCP - General Physician Mounting Machine Operator 06/28/19
[2024-07-10 20:07] LABS: NT Pro B Type Natriuretic Pept 158 pg/mL (19.9-100); Troponin I < 0.012 ng/mL (0.000-0.034)
[2024-07-10 20:10] LABS: INR 1.1; Prothrombin Time 14.7 Seconds (11.1-14.7)
[2024-07-10 20:11] LABS: Partial Thromboplastin Time 29.5 Seconds (22.3-36.8)
[2024-07-10 20:18] LABS: D Dimer 1.11 ug/mL (<0.48)
[2024-07-10 20:22] LABS: Influenza A QL RT-PCR Negative (Negative); Influenza B QL RT-PCR Negative (Negative); RSV RNA, RT-PCR Negative (Negative); SARS-CoV-2 RNA PCR Negative (Negative)
--- NOTE | 2024-07-10 20:41 | PC.NURSE ---
Lab called to add on magnesium
[2024-07-10 20:51] LABS: Magnesium 1.8 mg/dL (1.6-2.3)
[2024-07-10] MEDS: AZITHROMYCIN 250 MG TABLET 500 MG PO (21:07)
[2024-07-10 22:11] VITALS: BP 147/83; PULSE 85; RESP 20; O2SAT 97
--- NOTE | 2024-07-10 22:36 | ECG_ITS ---
Test Date: 2024-07-10 22:48:53 Measurements Intervals [place] Rate: 93 P: 58 UT: 199 QRS: 41 QRSD: 99 T: 40 QT: 368 QTc: 458 Interpretive Statements SINUS RHYTHM Compared to ECG 07/10/2024 19:34:37 NO SIGNIFICANT CHANGES Electronically Signed On 07-11-2024 12:50:02 CDT by Silverio Gusman M.D.
[2024-07-10 22:48] VITALS: PULSE 95; RESP 15
[2024-07-10] MEDS: ALBUTEROL SULFATE NEB 2.5 MG/3 ML INH INHALATION ×2 (22:48→23:33)
[2024-07-10 23:09] LABS: Troponin I < 0.012 ng/mL (0.000-0.034)
[2024-07-10 23:34] VITALS: PULSE 90; RESP 11; O2SAT 97
[2024-07-10 23:43] VITALS: PULSE 92; RESP 12
[2024-07-11] VITALS (26 sets, daily range): BP systolic 128–178; BP diastolic 57–81; PULSE 75–101; RESP 16–26; TEMP 36.2–36.9; O2SAT 91–97; BMI 36.1
--- NOTE | 2024-07-11 | ECHO_ITS ---
Patient Info Name: Ozzy Ch Age: 64 years : 1960 Gender: Male Ht: 72 in Wt: 266 lbs BSA: 2.52 m2 HR: 84 bpm BP: 149 / 81 mmHg Technical Quality: Fair Exam Date: 07/11/2024 10:59 AM Exam Location: Echo Lab Patient Status: Inpatient Admit Date: 07/11/2024 Staff Ordering Physician: Kiana Yuen DO Senior Electronics Engineer: Adina Davey RDCS Attending Provider: Kiana Yuen DO Referring Physician: Alpa SPENCER; Exam Type: CA echo dop color flow w con Study Info Indications - SOB - Lower extremity edema Complete two-dimensional, color flow and Doppler transthoracic echocardiogram is performed with contrast to opacify the left ventricle and to improve the deliniation of the left ventricle endocardial borders. Contrast/Agitated Saline Contrast/Ag. Saline: Definity Amount: 8.00 ml IV Access Condition: patent with no signs of infiltration Summary 1. Definity contrast administered improved wall motion interpretation. 2. Left ventricular chamber dimension is normal. 3. Left ventricular systolic function is normal, estimated at 60-65%. 4. There is mild concentric increased left ventricular wall thickness. 5. The left ventricular diastolic function is normal. 6. E/e' 8 is minimally elevated. 7. Left atrial chamber dimension is mildly enlarged. 8. Right atrial chamber dimension is mildly enlarged. 9. There is mild aortic valve sclerosis. 10. There is trace mitral valve regurgitation. 11. No pulmonary hypertension, estimated pulmonary arterial systolic pressure is 23 mmHg. Left Ventricle E/e' 8 is minimally elevated. Definity contrast administered improved wall motion interpretation. Left ventricular chamber dimension is normal. Left ventricular systolic function is normal, estimated at 60-65%. There is mild concentric increased left ventricular wall thickness. The left ventricular diastolic function is normal. Right Ventricle Right ventricular systolic function is normal and with normal TAPSE 3.6 cm. Right ventricular chamber dimension is normal. Left Atria Left atrial chamber dimension is mildly enlarged. Right Atria Right atrial chamber dimension is mildly enlarged. Aortic Valve The aortic valve is trileaflet. There is mild aortic valve sclerosis. There is no aortic valve stenosis. There is no aortic valve regurgitation. Pulmonic Valve There is no pulmonic regurgitation. Mitral Valve There is no mitral valve stenosis. There is trace mitral valve regurgitation. Tricuspid Valve There is no tricuspid valve regurgitation. No pulmonary hypertension, estimated pulmonary arterial systolic pressure is 23 mmHg. Pericardium/Pleural There is no pericardial effusion. Inferior Vena Cava Normal inferior vena cava with >50% collapse upon inspiration consistent with normal right atrial pressure, 5 mmHg. Aorta The aortic root size at the sinus of Valsalva is normal. Left Ventricular Outflow Tract Name Value Normal LVOT 2D LVOT Diameter 2.17 cm LVOT Doppler LVOT Peak Gradient 3 mmHg LVOT Mean Gradient 2 mmHg LVOT VTI 23.18 cm LVOT VTI/AV VTI Ratio 0.75 LVOT Stroke Volume 85.83 ml LVOT CO 7.30 l/min LVOT CI 2.90 L/min/m2 Pulmonic Valve Name Value Normal RVOT Doppler RVOT Peak Gradient 2 mmHg PV Doppler PV Peak Gradient 4 mmHg Mitral Valve Name Value Normal MV Doppler MV Decel [place] 495.97 cm/s2 MV PHT 0 s MV Area (PHT) 4.19 cm2 4.00-5.00 MV Diastolic Function MV E Peak Velocity 89.87 cm/s MV A Peak Velocity 86.27 cm/s MV E/A 1.04 MV Decel Time 0 s MV Annular TDI MV E/e' (Septal) 9.15 <=8.00 MV E/e' (Lateral) 8.68 <=8.00 MV E/e' (Average) 8.92 Tricuspid Valve Name Value Normal TV Regurgitation Doppler TR Peak Velocity 210.21 cm/s TR Peak Gradient 18 mmHg Estimated PAP/RSVP RA Pressure 5 mmHg <=5 PA Systolic Pressure 23 mmHg <36 RV Systolic Pressure 23 mmHg <36 Aortic Valve Name Value Normal AV Doppler AV Peak Velocity 148.96 cm/s AV Peak Gradient 9 mmHg AV Mean Gradient 5 mmHg AV VTI 30.81 cm AV Area (Cont Eq VTI) 2.79 cm2 >=3.00 AV Area (Cont Eq Reji) 2.32 cm2 AV Regurgitation 2D LVOT Area 3.70 cm2 Ventricles Name Value Normal LV Dimensions 2D/MM IVS Diastolic Thickness (2D) 1.18 cm 0.60-1.00 LVID Diastole (2D) 5.55 cm 4.20-5.80 LVIW Diastolic Thickness (2D) 1.16 cm 0.60-1.00 LVID Systole (2D) 3.78 cm 2.50-4.00 LVOT Diameter 2.17 cm LV Mass (2D Cubed) 266.90 g 88.00-224.00 LV Mass Index (2D Cubed) 0.01 g/cm2 0.00-0.01 Relative Wall Thickness (2D) 0.42 LV Fractional Shortening/Ejection Fraction 2D/MM LV Fractional Shortening (2D) 32 % 25-43 LV EF (2D Teicholz) 59 % 52-72 Atria Name Value Normal LA Dimensions LA Volume (4C A-L) 64.22 ml LA Volume (BP A-L) 77.86 ml RA Dimensions RA Area (4C) 23.58 cm2 <=18.00 Report Signatures
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
[2024-07-11 02:27] LABS: Ethanol 10 mg/dL (<10)
[2024-07-11] MEDS: ALBUTEROL SULFATE NEB 2.5 MG/3 ML INH 5 MG INHALATION ×4 (04:06→20:26)
[2024-07-11] MEDS: IPRATROPIUM BR 0.02% INH SOLN 0.5 MG/2.5 ML VIAL INHALATION ×4 (04:07→20:26)
[2024-07-11 04:57] LABS: Troponin I < 0.012 ng/mL (0.000-0.034)
[2024-07-11] MEDS: methylPREDNISolone SOD SUCC 125 MG VIAL 60 MG IV PUSH ×4 (05:11→23:22)
[2024-07-11 05:38] LABS: Base Excess ABG 4.2 mEq/l (+/-2.0); Fractional Inspired Oxygen 40 %; HCO3 ABG 32.7 mEq/l (22.0-26.0); Oxygen Content ABG 18.6 %vol (16.0-22.0); Oxygen Saturation ABG 93.6 % (95.0-100.0); Oxyhemoglobin 92.6 % THb (90.0-100.0); PO2 ABG 76.3 mmHg (80.0-100.0); PO2 FiO2 Ratio Arterial Blood 1.91 %; Total Hemoglobin 14.3 g/dL (12.0-18.0); pH ABG 7.307 (7.350-7.450)
[2024-07-11 05:46] LABS: Device NON-INVASIVE VENT; Modified Allen's Test Pass; PCO2 ABG 66.9 mmHg (35.0-45.0); Site Drawn LEFT RADIAL
[2024-07-11 05:47] LABS: Non-Invasive Expiratory Pressure 7 CMH2O; Non-Invasive Inspiratory Pressure 14 CMH2O; Non-Invasive Vent Rate 18 /MIN
[2024-07-11 06:06] LABS: Anion Gap 9 mmol/L (4-12); Blood Urea Nitrogen 17 mg/dL (9-20); Calcium 8.6 mg/dL (8.4-10.2); Carbon Dioxide 30 mmol/L (22-30); Chloride 99 mmol/L (98-107); Estimated CRCL calculation 111 ml/min; Estimated Glomerular Filt Rate > 60; Glucose 169 mg/dL (65-110); Potassium 4.1 mmol/L (3.4-5.0); Sodium 138 mmol/L (137-145)
--- NOTE | 2024-07-11 08:45 | ADMGEN ---
This patient, Ozzy Ch, was admitted to IMU Room 201-01 on 07/11/24 at 0225. Patient/family oriented to hospital policies and general routines including ID bracelet, bed and alarms, visiting hours, pain management, procedures, bathroom and other care routines, personal items, smoking policy, room service/diet, and visiting hours. Information on how to activate the Rapid Response Team has been discussed. Patient/Family are encouraged to report perceived risks to care and to ask questions if they do not understand what they are told or what they should do.
[2024-07-11] MEDS: NICOTINE (*PBKC) 7 MG PATCH 1 PATCH TRANSDERM (09:52)
[2024-07-11] MEDS: METOPROLOL TARTRATE 25 MG TABLET PO (09:52)
[2024-07-11] MEDS: THIAMINE HCL 100 MG TABLET PO (09:52)
[2024-07-11] MEDS: ATORVASTATIN 20 MG TABLET PO (09:52)
[2024-07-11] MEDS: METOPROLOL TARTRATE 12.5 MG TABLET PO (09:52)
[2024-07-11] MEDS: BUPRENORPHINE/NALOXONE (*CRX) 4 MG/1 MG SL FILM 3 EACH SUBLINGUAL ×3 (09:52→16:57)
[2024-07-11] MEDS: FOLIC ACID 1 MG TABLET PO (09:52)
[2024-07-11] MEDS: ASPIRIN 81 MG ENTERIC TABLET PO (09:53)
[2024-07-11] MEDS: ENOXAPARIN 40 MG/0.4 ML SYRINGE SUB-Q (09:53)
[2024-07-11] MEDS: FUROSEMIDE INJ 40 MG/4 ML VIAL IV PUSH ×2 (09:53→16:57)
[2024-07-11] MEDS: LACTIC ACID 12% LOTION 225 BTL 1 APPLIC TOPICAL ×2 (10:09→16:57)
--- NOTE | 2024-07-11 10:47 | PM.IMPN ---
Progress Note: A&P Assessment and Plan (1) Acute on chronic respiratory failure with hypoxia and hypercapnia: Code(s): J96.21 - Acute and chronic respiratory failure with hypoxia; J96.22 - Acute and chronic respiratory failure with hypercapnia Status: Acute Assessment and Plan: O2@ 4 liters nasal cannula is home oxygen level. Patient was placed on BiPAP 14/7 with a rate of 18 he is pulling tidal volumes of 450-500 and reports feeling significantly better. AM ABG: pH:7.307, pC02 66.9, p02 76.3, HC03 32.7, 02 saturation 93.6. BIPAP at night and when napping. (2) COPD exacerbation: Code(s): J44.1 - Chronic obstructive pulmonary disease with (acute) exacerbation Status: Acute Assessment and Plan: Atrovent neb q 6. Methylprednisolone 60 mg ivp q 6 hours. (3) Acute exacerbation of chronic heart failure: Code(s): I50.9 - Heart failure, unspecified Status: Acute Assessment and Plan: Furosemide 40 mg IVP BID Metoprolol 37.5 mg PO daily. Monitor strict I&O's and daily weights. Echocardiogram today showed: Summary 1. Definity contrast administered improved wall motion interpretation. 2. Left ventricular chamber dimension is normal. 3. Left ventricular systolic function is normal, estimated at 60-65%. 4. There is mild concentric increased left ventricular wall thickness. 5. The left ventricular diastolic function is normal. 6. E/e' 8 is minimally elevated. 7. Left atrial chamber dimension is mildly enlarged. 8. Right atrial chamber dimension is mildly enlarged. 9. There is mild aortic valve sclerosis. 10. There is trace mitral valve regurgitation. 11. No pulmonary hypertension, estimated pulmonary arterial systolic pressure is 23 mmHg. (4) Tobacco abuse disorder: Code(s): Z72.0 - Tobacco use Status: Acute Assessment and Plan: Patient has been smoking 5 cigarettes a day. Nicotine patch (5) Alcohol abuse: Code(s): F10.10 - Alcohol abuse, uncomplicated Status: Acute Assessment and Plan: CIWA protocol. Drinks 4 shots of fireball a day at home. Thiamine and folic acid. (6) Stasis dermatitis of both legs: Code(s): I87.2 - Venous insufficiency (chronic) (peripheral) Status: Inactive Assessment and Plan: Wound consult. Silver gel applied to wounds on legs. Lac-hydin lotion to both legs for dry scaly skin. (7) History of intravenous drug use in remission: Code(s): Z87.898 - Personal history of other specified conditions Status: Acute Assessment and Plan: He has Suboxone listed on his home med rec. Will resume home Suboxone. Subjective Date/time seen: 07/11/24 10:47 Interval history: Patient sitting up on the side of the bed on telephone. Patient denies chest pain, palpitations, headache, dizziness, nausea, or vomiting. Review of Systems Review of Systems: All systems reviewed & are unremarkable except as noted in HPI and below Exam Const: General: comfortable and no acute distress Resp: Effort & Inspection: normal respiratory effort Auscultation: wheezes expiratory wheezes Cardio: Rate: regular rate Rhythm: regular rhythm Other: Telemetry- SR 94 GI: GI Palp: Yes Soft to palpation Auscultation: normal bowel sounds Neuro: Speech: normal speech Extrem: General: pedal edema bilaterally 2+ Psych: Mental Status: mental status grossly normal Affect: normal affect Objective Data Vital Signs Vital Signs: Vital Signs - 24 hr 07/10/24 19:20 07/10/24 20:01 07/10/24 22:11 Temperature 97.3 F L Pulse Rate 97 90 85 Respiratory Rate 15 21 H 20 Blood Pressure 109/60 147/83 H Pulse Oximetry 74 L 97 Oxygen Delivery Nasal Cannula Oxygen Flow Rate 4 Fraction of Inspired Oxygen 07/10/24 22:48 07/10/24 23:34 07/10/24 23:34 Temperature Pulse Rate 95 90 Respiratory Rate 15 11 L Blood Pressure Pulse Oximetry 97 Oxygen Delivery High Flow Therapy with Na Oxygen Flow Rate 45 Fraction of Inspired Oxygen 40 07/10/24 23:43 07/11/24 00:30 07/11/24 00:38 Temperature Pulse Rate 92 92 94 Respiratory Rate 12 16 23 H Blood Pressure 149/81 H Pulse Oximetry 94 96 Oxygen Delivery BiPAP Oxygen Flow Rate Fraction of Inspired Oxygen 07/11/24 02:25 07/11/24 02:28 07/11/24 04:00 Temperature 98.4 F Pulse Rate 95 88 Respiratory Rate 22 H 20 Blood Pressure 178/61 H Pulse Oximetry 95 95 95 Oxygen Delivery BiPAP BiPAP Oxygen Flow Rate Fraction of Inspired Oxygen 45 07/11/24 04:00 07/11/24 04:00 07/11/24 04:05 Temperature Pulse Rate 93 84 84 Respiratory Rate 18 20 Blood Pressure 128/57 L Pulse Oximetry 95 Oxygen Delivery Oxygen Flow Rate Fraction of Inspired Oxygen 07/11/24 04:05 07/11/24 04:20 07/11/24 05:14 Temperature Pulse Rate 84 84 Respiratory Rate 20 20 Blood Pressure Pulse Oximetry 94 96 Oxygen Delivery BiPAP BiPAP Oxygen Flow Rate Fraction of Inspired Oxygen 40 07/11/24 06:00 07/11/24 07:34 07/11/24 07:34 Temperature Pulse Rate 91 88 Respiratory Rate 18 Blood Pressure Pulse Oximetry 95 Oxygen Delivery BiPAP Oxygen Flow Rate Fraction of Inspired Oxygen 40 07/11/24 07:36 07/11/24 08:00 07/11/24 09:40 Temperature 97.2 F L Pulse Rate 94 90 Respiratory Rate 18 19 Blood Pressure 131/62 Pulse Oximetry 95 95 93 Oxygen Delivery BiPAP Nasal Cannula Oxygen Flow Rate 4 Fraction of Inspired Oxygen 07/11/24 09:52 07/11/24 09:52 Temperature Pulse Rate 101 H 101 H Respiratory Rate Blood Pressure Pulse Oximetry Oxygen Delivery Oxygen Flow Rate Fraction of Inspired Oxygen Intake/Output Intake/Output: Intake & Output 07/08/24 07/09/24 07/10/24 07/11/24 23:59 23:59 23:59 23:59 Intake Total 100 50 Output Total 0 Balance 100 50 Meds/Results Medications: Active Medications Generic Name Dose Route Start Last Admin Trade Name Freq PRN Reason Stop Dose Admin Acetaminophen 650 mg 07/11/24 00:26 Acetaminophen 325 Mg Tablet PO Q4H PRN Mild Pain (1-3) or Fever Albuterol 5 mg 07/11/24 02:00 07/11/24 07:33 Albuterol Sulfate Neb 2.5 Mg/3 Ml Inh INHALATION 5 mg Q6HRT TONY Administration Aspirin 81 mg 07/11/24 09:00 07/11/24 09:53 Aspirin 81 Mg Enteric Tablet PO 81 mg DAILY TONY Administration Atorvastatin Calcium 20 mg 07/11/24 09:00 07/11/24 09:52 Atorvastatin 20 Mg Tablet PO 20 mg DAILY TONY Administration Buprenorphine/Naloxone 3 each 07/11/24 09:00 07/11/24 09:52 Buprenorphine/Naloxone (*Crx) 4 Mg/1 Mg Sl Film SUBLINGUAL 08/10/24 08:59 3 each TID [facility] Administration Doxepin HCl 25 mg 07/11/24 21:00 Doxepin Hcl 25 Mg Capsule PO HS [facility] Enoxaparin Sodium 40 mg 07/11/24 09:00 07/11/24 09:53 Enoxaparin 40 Mg/0.4 Ml Syringe SUB-Q 40 mg DAILY [facility] Administration Folic Acid 1 mg 07/11/24 09:00 07/11/24 09:52 Folic Acid 1 Mg Tablet PO 1 mg DAILY [facility] Administration Furosemide 40 mg 07/11/24 09:00 07/11/24 09:53 Furosemide Inj 40 Mg/4 Ml Vial IV PUSH 40 mg BID [facility] Administration Ipratropium [place] 0.5 mg 07/11/24 02:00 07/11/24 07:33 Ipratropium Br 0.02% Inh Soln 0.5 Mg/2.5 Ml Vial INHALATION 0.5 mg Q6HRT [facility] Administration Lactic Acid 1 applic 07/11/24 09:00 07/11/24 10:09 Lactic Acid 12% Lotion 225 Btl TOPICAL 1 applic BID [facility] Administration Methylprednisolone Sodium Succinate 60 mg 07/11/24 06:00 07/11/24 05:11 Methylprednisolone Sod Succ 125 Mg Vial IV PUSH 60 mg Q6HR [facility] Administration Metoprolol Tartrate 12.5 mg 07/11/24 09:00 07/11/24 09:52 Metoprolol Tartrate 12.5 Mg Tablet PO 12.5 mg DAILY [facility] Administration Metoprolol Tartrate 25 mg 07/11/24 09:00 07/11/24 09:52 Metoprolol Tartrate 25 Mg Tablet PO 25 mg DAILY [facility] Administration Nicotine 1 patch 07/11/24 09:00 07/11/24 09:52 Nicotine (*Pbkc) 7 Mg Patch TRANSDERM 1 patch DAILY [facility] Administration Ondansetron HCl 4 mg 07/11/24 00:26 Ondansetron Inj 4 Mg/2 Ml Vial IV PUSH Q4H PRN Nausea Perflutren Lipid Microsphere 0 ml 07/11/24 03:44 Perflutren Lipid Microspheres 1.5 Ml Vial Diluted To 10 Ml Total Volume IV PUSH 07/14/24 03:44 ONCE PRN adequate visualization Protocol Thiamine HCl 100 mg 07/11/24 09:00 07/11/24 09:52 Thiamine Hcl 100 Mg Tablet PO 100 mg DAILY TONY Administration Radiology Results: ITS Impressions Chest X-Ray 07/10/24 20:32 IMPRESSION: Segmental left and subsegmental right basilar atelectasis/consolidation. Possible small bilateral pleural effusions. Mild interstitial edema overlying emphysematous changes. Chest CTA 07/10/24 23:03 IMPRESSION: No CT evidence of acute pulmonary embolus, noting suboptimal evaluation of the subsegmental pulmonary arteries. Mild pulmonary edema, overlying chronic emphysematous change. Subsegmental bibasilar atelectasis/consolidation. The presence of airway debris could indicate a component of aspiration. Mediastinal lymphadenopathy. Labs Labs: Laboratory Results - last 24 hr 07/10/24 07/10/24 07/10/24 19:39 19:39 19:39 WBC 8.1 RBC 4.63 Hgb 14.0 Hct 44.8 MCV 96.8 MCH 30.2 MCHC 31.3 L RDW 13.5 Plt Count 207 MPV 10.1 Immature Gran % (Auto) 0.2 Neut % (Auto) 53.5 Lymph % (Auto) 29.6 [place] % (Auto) 9.4 H Eos % (Auto) 6.8 H Baso % (Auto) 0.5 Lymph # (Auto) 2.40 [place] # (Auto) 0.8 H Eos # (Auto) 0.6 H Baso # (Auto) 0.0 Abs Immat Gran (auto) 0.02 Absolute Neuts (auto) 4.3 Absolute Nucleated RBC 0.000 Nucleated RBC % 0.0 PT 14.7 INR 1.1 APTT 29.5 D-Dimer 1.11 H Cancelled Puncture Site ABG pH ABG pCO2 ABG pO2 ABG PO2/FiO2 Ratio ABG HCO3 ABG O2 Saturation ABG O2 Content ABG Base Excess A-a Gradient Oxyhemoglobin Total Hemoglobin O2 Delivery Device O2 Liters/Min Vent Rate FiO2 Expiratory Pressure Inspiratory Pressure Sodium 140 Potassium 3.5 Chloride 98 Carbon Dioxide 33 H Anion Gap 9 BUN 16 Creatinine 0.95 Estim Creat Clear Calc 91 Estimated GFR > 60 Glucose 122 H Calcium 8.8 Magnesium 1.8 Total Bilirubin 0.4 AST 23 ALT 12 Alkaline Phosphatase 98 Troponin I < 0.012 NT-Pro-B Natriuret Pep 158 H Cancelled Total Protein 9.0 H Albumin 4.3 Lipase 38 Ethyl Alcohol Influenza A (RT-PCR) Negative Influenza B (RT-PCR) Negative RSV (RT-PCR) Negative SARS-CoV-2 RNA (RT-PCR) Negative 07/10/24 07/10/24 07/11/24 19:44 22:44 03:47 WBC RBC Hgb Hct MCV MCH MCHC RDW Plt Count MPV Immature Gran % (Auto) Neut % (Auto) Lymph % (Auto) [place] % (Auto) Eos % (Auto) Baso % (Auto) Lymph # (Auto) [place] # (Auto) Eos # (Auto) Baso # (Auto) Abs Immat Gran (auto) Absolute Neuts (auto) Absolute Nucleated RBC Nucleated RBC % PT INR APTT D-Dimer Puncture Site Right radial ABG pH 7.268 L* ABG pCO2 74.4 H* ABG pO2 66.3 L ABG PO2/FiO2 Ratio 1.38 ABG HCO3 33.2 H ABG O2 Saturation 89.5 L ABG O2 Content 17.6 ABG Base Excess 3.8 A-a Gradient 191.9 Oxyhemoglobin 88.1 L Total Hemoglobin 14.2 O2 Delivery Device Nasal cannula O2 Liters/Min 6.5 Vent Rate FiO2 48 Expiratory Pressure Inspiratory Pressure Sodium 138 Potassium 4.1 Chloride 99 Carbon Dioxide 30 Anion Gap 9 BUN 17 Creatinine 0.76 Estim Creat Clear Calc 111 Estimated GFR > 60 Glucose 169 H Calcium 8.6 Magnesium Total Bilirubin AST ALT Alkaline Phosphatase Troponin I < 0.012 < 0.012 NT-Pro-B Natriuret Pep Total Protein Albumin Lipase Ethyl Alcohol 10 Influenza A (RT-PCR) Influenza B (RT-PCR) RSV (RT-PCR) SARS-CoV-2 RNA (RT-PCR) 07/11/24 05:20 WBC RBC Hgb Hct MCV MCH MCHC RDW Plt Count MPV Immature Gran % (Auto) Neut % (Auto) Lymph % (Auto) [place] % (Auto) Eos % (Auto) Baso % (Auto) Lymph # (Auto) [place] # (Auto) Eos # (Auto) Baso # (Auto) Abs Immat Gran (auto) Absolute Neuts (auto) Absolute Nucleated RBC Nucleated RBC % PT INR APTT D-Dimer Puncture Site Left radial ABG pH 7.307 L ABG pCO2 66.9 H* ABG pO2 76.3 L ABG PO2/FiO2 Ratio 1.91 ABG HCO3 32.7 H ABG O2 Saturation 93.6 L ABG O2 Content 18.6 ABG Base Excess 4.2 A-a Gradient 132.0 Oxyhemoglobin 92.6 Total Hemoglobin 14.3 O2 Delivery Device Non-invasive vent O2 Liters/Min Not Reportable Vent Rate 18 FiO2 40 Expiratory Pressure 7 Inspiratory Pressure 14 Sodium Potassium Chloride Carbon Dioxide Anion Gap BUN Creatinine Estim Creat Clear Calc Estimated GFR Glucose Calcium Magnesium Total Bilirubin AST ALT Alkaline Phosphatase Troponin I NT-Pro-B Natriuret Pep Total Protein Albumin Lipase Ethyl Alcohol Influenza A (RT-PCR) Influenza B (RT-PCR) RSV (RT-PCR) SARS-CoV-2 RNA (RT-PCR) Quality VTE Prophylaxis VTE prophylaxis: pharmacologic ordered (Lovenox 40 mg subQ daily.)
[2024-07-11] MEDS: PERFLUTREN LIPID MICROSPHERES 1.5 ML VIAL DILUTED TO 10 ML TOTAL VOLUME IV PUSH (12:00)
--- NOTE | 2024-07-11 12:24 | IVDEFINITY ---
Prior to administration of IV Definity the patient was educated on the risks and benefits of the imaging enhancing agent including potential adverse side effects. The patient verbalized understanding. Allergies were verified. No exclusion criteria were identified and at least one of the following inclusion criteria were met: 1) physician request, 2) patient technically difficult to image (per the [place] [employer]chocardi[employer] guidelines of two or more segments not discernable within the apical view), or 3) questionable left ventricular function. ?
[2024-07-11] MEDS: DOXEPIN HCL 25 MG CAPSULE PO (20:41)
[2024-07-12] VITALS (27 sets, daily range): BP systolic 133–149; BP diastolic 63–80; PULSE 72–101; RESP 12–20; TEMP 36.4–36.9; O2SAT 90–96
[2024-07-12] MEDS: ALBUTEROL SULFATE NEB 2.5 MG/3 ML INH 5 MG INHALATION ×3 (01:52→20:37)
[2024-07-12] MEDS: IPRATROPIUM BR 0.02% INH SOLN 0.5 MG/2.5 ML VIAL INHALATION ×3 (01:52→20:37)
[2024-07-12 04:46] LABS: Basophils Percent Auto 0.1 % (0.2-1.2); Hematocrit 42.8 % (42.0-52.0); Hemoglobin 13.4 g/dL (14.0-18.0); Immature Granulocyte Absolute 0.04 K/mm3 (0.00-0.031); Immature Granulocyte Percent A 0.5 % (0-0.5); Lymphocytes Absolute Auto 0.67 K/mm3 (0.9-3.2); Lymphocytes Percent Auto 7.6 % (18.3-44.2); Mean Corpuscular HGB Conc 31.3 g/dl (32-36); Mean Corpuscular Hemoglobin 29.8 pg (26-34); Mean Corpuscular Volume 95.3 fl (80-100); Mean Platelet Volume 10.7 fl (7.4-10.4); Monocytes Absolute Auto 0.2 K/mm3 (0.1-0.6); Monocytes Percent Auto 1.7 % (2.6-8.5); Neutrophils Absolute Auto 7.9 K/mm3 (1.3-6.7); Neutrophils Percent Auto 90.1 % (45.5-73.1); Platelet Count Result 184 k/mm3 (150-375); Red Blood Count 4.49 M/mm3 (4.6-6.20); Red Cell Distribution Width 13.6 % (11.5-14.5); White Blood Count 8.8 K/mm3 (4.5-10.0)
[2024-07-12 04:54] LABS: Alanine Aminotransferase 18 U/L (6-50); Albumin Level 4.1 g/dL (3.5-5.1); Alkaline Phosphatase 96 U/L (38-126); Anion Gap 11 mmol/L (4-12); Aspartate Amino Transferase 23 U/L (17-59); Bilirubin,Total 0.5 mg/dL (0.2-1.3); Blood Urea Nitrogen 27 mg/dL (9-20); Calcium 8.9 mg/dL (8.4-10.2); Carbon Dioxide 32 mmol/L (22-30); Chloride 93 mmol/L (98-107); Estimated CRCL calculation 111 ml/min; Estimated Glomerular Filt Rate > 60; Glucose 157 mg/dL (65-110); Potassium 4.1 mmol/L (3.4-5.0); Sodium 136 mmol/L (137-145)
[2024-07-12] MEDS: methylPREDNISolone SOD SUCC 125 MG VIAL 60 MG IV PUSH (05:39)
[2024-07-12 06:07] LABS: Amphetamine Screen Urine Negative (Negative); Barbiturate Screen Urine Negative (Negative); Benzodiazepines Screen Urine Negative (Negative); Cannabinoid Screen Urine Negative (Negative); Cocaine Screen Urine Negative (Negative); Methadone Screen Urine Negative (Negative); Opiate Screen Urine Negative (Negative); Phencyclidine Screen Urine Negative (Negative)
[2024-07-12] MEDS: METOPROLOL TARTRATE 12.5 MG TABLET PO (09:24)
[2024-07-12] MEDS: FOLIC ACID 1 MG TABLET PO (09:25)
[2024-07-12] MEDS: METOPROLOL TARTRATE 25 MG TABLET PO (09:25)
[2024-07-12] MEDS: ENOXAPARIN 40 MG/0.4 ML SYRINGE SUB-Q (09:25)
[2024-07-12] MEDS: ATORVASTATIN 20 MG TABLET PO (09:25)
[2024-07-12] MEDS: BUPRENORPHINE/NALOXONE (*CRX) 4 MG/1 MG SL FILM 3 EACH SUBLINGUAL ×3 (09:25→17:33)
[2024-07-12] MEDS: FUROSEMIDE INJ 40 MG/4 ML VIAL IV PUSH ×2 (09:25→17:33)
[2024-07-12] MEDS: THIAMINE HCL 100 MG TABLET PO (09:25)
[2024-07-12] MEDS: NICOTINE (*PBKC) 7 MG PATCH 1 PATCH TRANSDERM (09:25)
[2024-07-12] MEDS: ASPIRIN 81 MG ENTERIC TABLET PO (09:25)
[2024-07-12] MEDS: LACTIC ACID 12% LOTION 225 BTL 1 APPLIC TOPICAL (09:26)
--- NOTE | 2024-07-12 09:55 | P.PNIM_ITS ---
Progress Note: A&P Assessment and Plan (1) Acute on chronic respiratory failure with hypoxia and hypercapnia: Code(s): J96.21 - Acute and chronic respiratory failure with hypoxia; J96.22 - Acute and chronic respiratory failure with hypercapnia Status: Acute Assessment and Plan: * O2@ 4 liters nasal cannula is home oxygen level. * Patient was placed on BiPAP 29/10 with a rate of 18 he is pulling tidal volumes of 450-500 and reports feeling significantly better. * AM ABG on 07/11/24: pH:7.307, pC02 66.9, p02 76.3, HC03 32.7, 02 saturation 93.6. * BIPAP at night and when napping. * Pulmonology consulted. Patient does not have a home Bipap or CPAP. * Pulmonology recommending patient have an at home noninvasive ventilator. (2) COPD exacerbation: Code(s): J44.1 - Chronic obstructive pulmonary disease with (acute) exacerbation Status: Acute Assessment and Plan: * Atrovent neb q 6. * Switched to oral Prednisone 40 mg PO daily. * Pulmonology consulted. (3) Acute exacerbation of chronic heart failure: Code(s): I50.9 - Heart failure, unspecified Status: Acute Assessment and Plan: * Furosemide 40 mg IVP BID * Metoprolol 37.5 mg PO daily. * Monitor strict I&O's and daily weights. * Echocardiogram today showed: Summary 1. Definity contrast administered improved wall motion interpretation. 2. Left ventricular chamber dimension is normal. 3. Left ventricular systolic function is normal, estimated at 60-65%. 4. There is mild concentric increased left ventricular wall thickness. 5. The left ventricular diastolic function is normal. 6. E/e' 8 is minimally elevated. 7. Left atrial chamber dimension is mildly enlarged. 8. Right atrial chamber dimension is mildly enlarged. 9. There is mild aortic valve sclerosis. 10. There is trace mitral valve regurgitation. 11. No pulmonary hypertension, estimated pulmonary arterial systolic pressure is 23 mmHg. (4) Tobacco abuse disorder: Code(s): Z72.0 - Tobacco use Status: Acute Assessment and Plan: * Patient has been smoking 5 cigarettes a day. * Nicotine patch (5) Alcohol abuse: Code(s): F10.10 - Alcohol abuse, uncomplicated Status: Acute Assessment and Plan: * CIWA protocol. Drinks 4 shots of fireball a day at home. * Thiamine and folic acid. (6) Stasis dermatitis of both legs: Code(s): I87.2 - Venous insufficiency (chronic) (peripheral) Status: Inactive Assessment and Plan: * Wound consult. * Silver gel applied to wounds on legs. * Lac-hydin lotion to both legs for dry scaly skin. (7) History of intravenous drug use in remission: Code(s): Z87.898 - Personal history of other specified conditions Status: Acute Assessment and Plan: * He has Suboxone listed on his home med rec. Will resume home Suboxone. Subjective Date/time seen: 07/12/24 09:55 Interval history: Patient sitting up on the side of the bed after bathing. Patient denies chest pain, shortness of breath, headache, dizziness, nausea, or vomiting. Patient reports that he is not on a CPAP or BIPAP at home. He reports seeing a [employer] once last year. Review of Systems Review of Systems: All systems reviewed & are unremarkable except as noted in HPI and below Exam Const: General: comfortable and no acute distress Resp: Effort & Inspection: normal respiratory effort Auscultation: crackles bilateral at the base and wheezes expiratory wheezes Cardio: Rate: regular rate Rhythm: regular rhythm Other: Telemetry- SR 100. Skin: Other: chronic stasis dermatitis, flakiness and dryness improved today. Neuro: Speech: normal speech Extrem: General: pedal edema bilaterally 1+ Psych: Mental Status: mental status grossly normal Affect: normal affect Objective Data Vital Signs Vital Signs: Vital Signs - 24 hr 07/11/24 10:00 07/11/24 12:00 07/11/24 12:00 Temperature 97.9 F Pulse Rate 100 100 94 Respiratory Rate 24 H Blood Pressure 135/63 Pulse Oximetry 91 Oxygen Delivery Oxygen Flow Rate Fraction of Inspired Oxygen 07/11/24 12:00 07/11/24 13:49 07/11/24 14:00 Temperature Pulse Rate 93 91 Respiratory Rate 20 Blood Pressure Pulse Oximetry 91 Oxygen Delivery Nasal Cannula Oxygen Flow Rate 4 Fraction of Inspired Oxygen 07/11/24 16:00 07/11/24 16:00 07/11/24 16:00 Temperature 98 F Pulse Rate 75 99 Respiratory Rate 22 H Blood Pressure 140/78 Pulse Oximetry 92 92 Oxygen Delivery Nasal Cannula Oxygen Flow Rate 4 Fraction of Inspired Oxygen 07/11/24 18:31 07/11/24 20:00 07/11/24 20:00 Temperature 98.2 F Pulse Rate 98 100 Respiratory Rate 22 H Blood Pressure 143/73 H Pulse Oximetry 91 91 Oxygen Delivery Nasal Cannula Oxygen Flow Rate 4 Fraction of Inspired Oxygen 07/11/24 20:00 07/11/24 20:29 07/11/24 20:30 Temperature Pulse Rate 99 99 Respiratory Rate 20 Blood Pressure Pulse Oximetry 92 Oxygen Delivery Nasal Cannula Oxygen Flow Rate 4 Fraction of Inspired Oxygen 07/11/24 20:41 07/11/24 22:00 07/11/24 22:10 Temperature Pulse Rate 99 94 92 Respiratory Rate 20 26 H Blood Pressure Pulse Oximetry 97 Oxygen Delivery BiPAP Oxygen Flow Rate Fraction of Inspired Oxygen 07/12/24 00:00 07/12/24 00:00 07/12/24 00:00 Temperature 97.7 F Pulse Rate 83 78 Respiratory Rate 18 Blood Pressure 137/80 Pulse Oximetry 92 95 Oxygen Delivery BiPAP Oxygen Flow Rate Fraction of Inspired Oxygen 40 07/12/24 01:53 07/12/24 01:56 07/12/24 02:00 Temperature Pulse Rate 81 81 81 Respiratory Rate 20 20 Blood Pressure Pulse Oximetry 96 Oxygen Delivery BiPAP Oxygen Flow Rate Fraction of Inspired Oxygen 07/12/24 02:04 07/12/24 03:37 07/12/24 04:00 Temperature 97.7 F Pulse Rate 77 78 Respiratory Rate 20 18 Blood Pressure 135/76 Pulse Oximetry 90 92 Oxygen Delivery Nasal Cannula Oxygen Flow Rate 4 Fraction of Inspired Oxygen 07/12/24 04:00 07/12/24 06:00 07/12/24 07:53 Temperature Pulse Rate 90 79 80 Respiratory Rate 20 Blood Pressure Pulse Oximetry 94 Oxygen Delivery Nasal Cannula Oxygen Flow Rate 4 Fraction of Inspired Oxygen 07/12/24 07:53 07/12/24 08:00 07/12/24 08:11 Temperature 97.6 F Pulse Rate 80 72 92 Respiratory Rate 20 12 20 Blood Pressure 135/71 Pulse Oximetry 95 Oxygen Delivery Oxygen Flow Rate Fraction of Inspired Oxygen 07/12/24 09:24 07/12/24 09:25 Temperature Pulse Rate 101 H 101 H Respiratory Rate Blood Pressure Pulse Oximetry Oxygen Delivery Oxygen Flow Rate Fraction of Inspired Oxygen Intake/Output Intake/Output: Intake & Output 03/2407/10/24 07/11/24 07/12/24 23:59 23:59 23:59 23:59 Intake Total 100 1780 830 Output Total 7460 1000 Balance 100 -810 -170 Meds/Results Medications: Active Medications Generic Name Dose Route Start Last Admin Trade Name Freq PRN Reason Stop Dose Admin Acetaminophen 650 mg 07/11/24 00:26 Acetaminophen 325 Mg Tablet PO Q4H PRN Mild Pain (1-3) or Fever Albuterol 5 mg 07/11/24 02:00 07/12/24 07:50 Albuterol Sulfate Neb 2.5 Mg/3 Ml Inh INHALATION 5 mg Q6HRT TONY Administration Aspirin 81 mg 07/11/24 09:00 07/12/24 09:25 Aspirin 81 Mg Enteric Tablet PO 81 mg DAILY TONY Administration Atorvastatin Calcium 20 mg 07/11/24 09:00 07/12/24 09:25 Atorvastatin 20 Mg Tablet PO 20 mg DAILY TONY Administration Buprenorphine/Naloxone 3 each 07/11/24 09:00 07/12/24 09:25 Buprenorphine/Naloxone (*Crx) 4 Mg/1 Mg Sl Film SUBLINGUAL 08/10/24 08:59 3 each TID TONY Administration Doxepin HCl 25 mg 07/11/24 21:00 07/11/24 20:41 Doxepin Hcl 25 Mg Capsule PO 25 mg HS TONY Administration Enoxaparin Sodium 40 mg 07/11/24 09:00 07/12/24 09:25 Enoxaparin 40 Mg/0.4 Ml Syringe SUB-Q 40 mg DAILY TONY Administration Folic Acid 1 mg 07/11/24 09:00 07/12/24 09:25 Folic Acid 1 Mg Tablet PO 1 mg DAILY TONY Administration Furosemide 40 mg 07/11/24 09:00 07/12/24 09:25 Furosemide Inj 40 Mg/4 Ml Vial IV PUSH 40 mg BID TONY Administration Ipratropium [place] 0.5 mg 07/11/24 02:00 07/12/24 07:50 Ipratropium Br 0.02% Inh Soln 0.5 Mg/2.5 Ml Vial INHALATION 0.5 mg Q6HRT TONY Administration Lactic Acid 1 applic 07/11/24 09:00 07/12/24 09:26 Lactic Acid 12% Lotion 225 Btl TOPICAL 1 applic BID TONY Administration Lactic Acid 1 applic 07/12/24 09:00 Lactic Acid 12% Lotion 225 Btl TOPICAL [facility] Methylprednisolone Sodium Succinate 60 mg 07/11/24 06:00 07/12/24 05:39 Methylprednisolone Sod Succ 125 Mg Vial IV PUSH 60 mg Q6HR TONY Administration Metoprolol Tartrate 12.5 mg 07/11/24 09:00 07/12/24 09:24 Metoprolol Tartrate 12.5 Mg Tablet PO 12.5 mg DAILY TONY Administration Metoprolol Tartrate 25 mg 07/11/24 09:00 07/12/24 09:25 Metoprolol Tartrate 25 Mg Tablet PO 25 mg DAILY TONY Administration Nicotine 1 patch 07/11/24 09:00 07/12/24 09:25 Nicotine (*Pbkc) 7 Mg Patch TRANSDERM 1 patch DAILY TONY Administration Ondansetron HCl 4 mg 07/11/24 00:26 Ondansetron Inj 4 Mg/2 Ml Vial IV PUSH Q4H PRN Nausea Thiamine HCl 100 mg 07/11/24 09:00 07/12/24 09:25 Thiamine Hcl 100 Mg Tablet PO 100 mg DAILY TONY Administration Radiology Results: ITS Impressions Chest X-Ray 07/10/24 20:32 IMPRESSION: Segmental left and subsegmental right basilar atelectasis/consolidation. Possible small bilateral pleural effusions. Mild interstitial edema overlying emphysematous changes. Chest CTA 07/10/24 23:03 IMPRESSION: No CT evidence of acute pulmonary embolus, noting suboptimal evaluation of the subsegmental pulmonary arteries. Mild pulmonary edema, overlying chronic emphysematous change. Subsegmental bibasilar atelectasis/consolidation. The presence of airway debris could indicate a component of aspiration. Mediastinal lymphadenopathy. Labs Labs: Laboratory Results - last 24 hr 07/12/24 07/12/24 03:47 05:43 WBC 8.8 RBC 4.49 L Hgb 13.4 L Hct 42.8 MCV 95.3 MCH 29.8 MCHC 31.3 L RDW 13.6 Plt Count 184 MPV 10.7 H Immature Gran % (Auto) 0.5 Neut % (Auto) 90.1 H Lymph % (Auto) 7.6 L [place] % (Auto) 1.7 L Eos % (Auto) 0.0 Baso % (Auto) 0.1 L Lymph # (Auto) 0.67 L [place] # (Auto) 0.2 Eos # (Auto) 0.0 Baso # (Auto) 0.0 Abs Immat Gran (auto) 0.04 H Absolute Neuts (auto) 7.9 H Absolute Nucleated RBC 0.000 Nucleated RBC % 0.0 Sodium 136 L Potassium 4.1 Chloride 93 L Carbon Dioxide 32 H Anion Gap 11 BUN 27 H D Creatinine 0.76 Estim Creat Clear Calc 111 Estimated GFR > 60 Glucose 157 H Calcium 8.9 Magnesium 2.0 Total Bilirubin 0.5 AST 23 ALT 18 Alkaline Phosphatase 96 Total Protein 8.0 Albumin 4.1 Urine Opiates Screen Negative Urine Methadone Screen Negative Ur Barbiturates Screen Negative Ur Phencyclidine Scrn Negative Ur Amphetamine Screen Negative U Benzodiazepines Scrn Negative Urine Cocaine Screen Negative U Cannabinoids Screen Negative Quality VTE Prophylaxis VTE prophylaxis: pharmacologic ordered (Lovenox 40 mg subQ daily.)
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
[2024-07-12] MEDS: DOXEPIN HCL 25 MG CAPSULE PO (20:35)
[2024-07-13] VITALS (28 sets, daily range): BP systolic 141–170; BP diastolic 71–96; PULSE 62–97; RESP 19–24; TEMP 36.4–37; O2SAT 93–98
[2024-07-13] MEDS: ALBUTEROL SULFATE NEB 2.5 MG/3 ML INH 5 MG INHALATION ×4 (02:15→20:14)
[2024-07-13] MEDS: IPRATROPIUM BR 0.02% INH SOLN 0.5 MG/2.5 ML VIAL INHALATION ×4 (02:15→20:15)
[2024-07-13 03:54] LABS: Hematocrit 41.8 % (42.0-52.0); Hemoglobin 13.1 g/dL (14.0-18.0); Immature Granulocyte Absolute 0.07 K/mm3 (0.00-0.031); Immature Granulocyte Percent A 0.8 % (0-0.5); Lymphocytes Absolute Auto 0.93 K/mm3 (0.9-3.2); Lymphocytes Percent Auto 10.3 % (18.3-44.2); Mean Corpuscular HGB Conc 31.3 g/dl (32-36); Mean Corpuscular Hemoglobin 29.7 pg (26-34); Mean Corpuscular Volume 94.8 fl (80-100); Mean Platelet Volume 10.6 fl (7.4-10.4); Monocytes Absolute Auto 0.5 K/mm3 (0.1-0.6); Monocytes Percent Auto 5.3 % (2.6-8.5); Neutrophils Absolute Auto 7.6 K/mm3 (1.3-6.7); Neutrophils Percent Auto 83.6 % (45.5-73.1); Platelet Count Result 198 k/mm3 (150-375); Red Blood Count 4.41 M/mm3 (4.6-6.20); Red Cell Distribution Width 13.8 % (11.5-14.5)
[2024-07-13 04:11] LABS: Alanine Aminotransferase 15 U/L (6-50); Albumin Level 3.9 g/dL (3.5-5.1); Alkaline Phosphatase 76 U/L (38-126); Anion Gap 8 mmol/L (4-12); Aspartate Amino Transferase 19 U/L (17-59); Bilirubin,Total 0.4 mg/dL (0.2-1.3); Blood Urea Nitrogen 43 mg/dL (9-20); Calcium 8.7 mg/dL (8.4-10.2); Carbon Dioxide 35 mmol/L (22-30); Chloride 94 mmol/L (98-107); Estimated CRCL calculation 90 ml/min; Estimated Glomerular Filt Rate > 60; Glucose 148 mg/dL (65-110); Magnesium 2.2 mg/dL (1.6-2.3); Potassium 4.2 mmol/L (3.4-5.0); Sodium 137 mmol/L (137-145)
[2024-07-13] MEDS: NICOTINE (*PBKC) 7 MG PATCH 1 PATCH TRANSDERM (08:49)
[2024-07-13] MEDS: FUROSEMIDE INJ 40 MG/4 ML VIAL IV PUSH ×2 (08:49→17:54)
[2024-07-13] MEDS: ATORVASTATIN 20 MG TABLET PO (08:49)
[2024-07-13] MEDS: predniSONE 20 MG TABLET 40 MG PO (08:50)
[2024-07-13] MEDS: THIAMINE HCL 100 MG TABLET PO (08:50)
[2024-07-13] MEDS: BUPRENORPHINE/NALOXONE (*CRX) 4 MG/1 MG SL FILM 3 EACH SUBLINGUAL ×3 (08:50→17:54)
[2024-07-13] MEDS: METOPROLOL TARTRATE 25 MG TABLET PO (08:50)
[2024-07-13] MEDS: METOPROLOL TARTRATE 12.5 MG TABLET PO (08:51)
[2024-07-13] MEDS: FOLIC ACID 1 MG TABLET PO (08:51)
[2024-07-13] MEDS: LACTIC ACID 12% LOTION 225 BTL 1 APPLIC TOPICAL (08:51)
[2024-07-13] MEDS: ENOXAPARIN 40 MG/0.4 ML SYRINGE SUB-Q (08:51)
[2024-07-13] MEDS: ASPIRIN 81 MG ENTERIC TABLET PO (08:51)
--- NOTE | 2024-07-13 09:22 | P.PNPL_ITS ---
Progress Note: A&P Assessment and Plan (1) COPD exacerbation: Code(s): J44.1 - Chronic obstructive pulmonary disease with (acute) exacerbation Status: Acute (2) Acute on chronic respiratory failure with hypoxia and hypercapnia: Code(s): J96.21 - Acute and chronic respiratory failure with hypoxia; J96.22 - Acute and chronic respiratory failure with hypercapnia Status: Acute Assessment and Plan: This 64-year-old man, with a history of obesity and chronic hypoxemic hypercapnic respiratory failure, likely due to a combination of obesity hypoventilation syndrome and moderately severe obstructive airway disease, presented with shortness of breath and increased lower extremity edema. He is currently being treated for acute on chronic hypercapnic respiratory failure, which appears to be an exacerbation of his chronic condition involving both obesity hypoventilation and moderately severe obstructive airway disease. A rev iew of his electronic medical record indicates that his hypercapnic respiratory failure dates back to February 2020. Since then, he has had multiple hospital admissions with similar symptoms related to his underlying conditions. Plan: The home ventilator unit is expected to be initiated tonight, along with the ApneaLink study. Based on the results of the ApneaLink study, the patient is expected to be discharged within the next 48 hours. Continue with BiPAP support at night and p.r.n. during the day out of bed to chair. I will continue to follow up with the patient alongside you. (3) Edema of both legs: Code(s): R60.0 - Localized edema Status: Acute Subjective Date/time seen: 07/13/24 09:22 Interval history: Patient has no new respiratory symptoms. Used BiPAP support last night. Currently on supplemental oxygen via nasal cannula. Eager to go home. Review of Systems Review of Systems: All systems reviewed & are unremarkable except as noted in HPI and below (HPI and below) Exam Narrative: GENERAL APPEARANCE: Well developed, well nourished, alert and cooperative, obese who appears to be mild respiratory distress while sitting in chair and breathing supplemental oxygen SKIN: Inspection of the skin reveals no rashes, ulcerations or petechiae. HEENT: Sclerae anicteric and conjunctivae pink and moist. Extraocular movements were intact and pupils were equal. Dry oral mucosa NECK: Supple. There was no thyroid enlargement, and no tenderness, or masses were felt. CHEST: Normal AP diameter and normal contour without any kyphoscoliosis. LUNGS: Crackles at bases posteriorly no wheezing CARDIAC: There was a regular rate and rhythm without any murmurs, gallops, rubs. ABDOMEN: Soft and nontender with normal bowel sounds. There was no organomegaly. LYMPH NODES: No lymphadenopathy was appreciated in the neck,. EXTREMITIES: No cyanosis, clubbing present in upper extremities, chronic stasis dermatitis and 1+ pedal edema in lower extremities NEUROLOGIC: Alert and oriented x 3. Normal affect. Objective Data Vital Signs Vital Signs: Vital Signs - 24 hr 07/12/24 09:24 07/12/24 09:25 07/12/24 10:00 Temperature Pulse Rate 101 H 101 H 94 Respiratory Rate Blood Pressure Pulse Oximetry Oxygen Delivery Oxygen Flow Rate Fraction of Inspired Oxygen 07/12/24 11:39 07/12/24 12:00 07/12/24 12:00 Temperature 36.7 C Pulse Rate 84 83 Respiratory Rate 16 Blood Pressure 133/76 Pulse Oximetry 93 93 Oxygen Delivery Nasal Cannula Oxygen Flow Rate 4 Fraction of Inspired Oxygen 07/12/24 14:00 07/12/24 14:40 07/12/24 15:38 Temperature 36.9 C Pulse Rate 80 86 Respiratory Rate 20 Blood Pressure 149/79 H Pulse Oximetry 96 Oxygen Delivery Nasal Cannula Oxygen Flow Rate 4 Fraction of Inspired Oxygen 07/12/24 15:55 07/12/24 16:00 07/12/24 16:00 Temperature Pulse Rate 79 Respiratory Rate Blood Pressure Pulse Oximetry 96 Oxygen Delivery Nasal Cannula Nasal Cannula Oxygen Flow Rate 4 4 Fraction of Inspired Oxygen 07/12/24 18:00 07/12/24 20:00 07/12/24 20:00 Temperature 36.8 C Pulse Rate 100 85 Respiratory Rate 20 Blood Pressure 135/63 135/63 Pulse Oximetry 93 Oxygen Delivery Oxygen Flow Rate Fraction of Inspired Oxygen 07/12/24 20:00 07/12/24 20:00 07/12/24 20:37 Temperature Pulse Rate 93 96 Respiratory Rate 20 Blood Pressure Pulse Oximetry 93 94 Oxygen Delivery Nasal Cannula Nasal Cannula Oxygen Flow Rate 4 4 Fraction of Inspired Oxygen 40 36 07/12/24 20:37 07/12/24 20:51 07/12/24 22:00 Temperature Pulse Rate 82 84 93 Respiratory Rate 20 20 Blood Pressure Pulse Oximetry Oxygen Delivery Oxygen Flow Rate Fraction of Inspired Oxygen 07/12/24 23:17 07/12/24 23:56 07/13/24 00:00 Temperature 36.8 C Pulse Rate 79 75 Respiratory Rate 20 20 Blood Pressure 147/78 H 147/78 H Pulse Oximetry 96 96 Oxygen Delivery BiPAP Oxygen Flow Rate Fraction of Inspired Oxygen 07/13/24 00:00 07/13/24 00:00 07/13/24 02:00 Temperature Pulse Rate 69 69 62 Respiratory Rate 20 Blood Pressure Pulse Oximetry 96 Oxygen Delivery BiPAP Oxygen Flow Rate Fraction of Inspired Oxygen 36 07/13/24 02:17 07/13/24 02:17 07/13/24 02:29 Temperature Pulse Rate 67 67 68 Respiratory Rate 19 19 20 Blood Pressure Pulse Oximetry 96 Oxygen Delivery BiPAP Oxygen Flow Rate Fraction of Inspired Oxygen 07/13/24 03:30 07/13/24 04:00 07/13/24 04:00 Temperature 36.6 C Pulse Rate 70 67 Respiratory Rate 19 19 Blood Pressure 145/77 H 145/77 H Pulse Oximetry 98 98 Oxygen Delivery BiPAP Oxygen Flow Rate Fraction of Inspired Oxygen 36 07/13/24 04:00 07/13/24 06:00 07/13/24 07:30 Temperature 36.4 C L Pulse Rate 67 68 87 Respiratory Rate 24 H Blood Pressure 157/96 H Pulse Oximetry 96 Oxygen Delivery Oxygen Flow Rate Fraction of Inspired Oxygen 07/13/24 08:37 07/13/24 08:37 07/13/24 08:50 Temperature Pulse Rate 78 74 Respiratory Rate 20 Blood Pressure Pulse Oximetry 96 Oxygen Delivery Nasal Cannula Oxygen Flow Rate 4 Fraction of Inspired Oxygen 07/13/24 08:51 07/13/24 08:58 Temperature Pulse Rate 74 83 Respiratory Rate 20 Blood Pressure Pulse Oximetry Oxygen Delivery Oxygen Flow Rate Fraction of Inspired Oxygen Intake/Output Intake/Output: Intake & Output 07/10/24 07/11/24 07/12/24 07/13/24 23:59 23:59 23:59 23:59 Intake Total 100 1690 1550 880 Output Total 2500 2100 675 Balance 100 -810 -550 205 Meds/Results Medications: Active Medications Generic Name Dose Route Start Last Admin Trade Name Freq PRN Reason Stop Dose Admin Acetaminophen 650 mg 07/11/24 00:26 Acetaminophen 325 Mg Tablet PO Q4H PRN Mild Pain (1-3) or Fever Albuterol 5 mg 07/11/24 02:00 07/13/24 08:37 Albuterol Sulfate Neb 2.5 Mg/3 Ml Inh INHALATION 5 mg Q6HRT TONY Administration Aspirin 81 mg 07/11/24 09:00 07/13/24 08:51 Aspirin 81 Mg Enteric Tablet PO 81 mg DAILY TONY Administration Atorvastatin Calcium 20 mg 07/11/24 09:00 07/13/24 08:49 Atorvastatin 20 Mg Tablet PO 20 mg DAILY TONY Administration Buprenorphine/Naloxone 3 each 07/11/24 09:00 07/13/24 08:50 Buprenorphine/Naloxone (*Crx) 4 Mg/1 Mg Sl Film SUBLINGUAL 08/10/24 08:59 3 each TID TONY Administration Doxepin HCl 25 mg 07/11/24 21:00 07/12/24 20:35 Doxepin Hcl 25 Mg Capsule PO 25 mg HS TONY Administration Enoxaparin Sodium 40 mg 07/11/24 09:00 07/13/24 08:51 Enoxaparin 40 Mg/0.4 Ml Syringe SUB-Q 40 mg DAILY TONY Administration Folic Acid 1 mg 07/11/24 09:00 07/13/24 08:51 Folic Acid 1 Mg Tablet PO 1 mg DAILY TONY Administration Furosemide 40 mg 07/11/24 09:00 07/13/24 08:49 Furosemide Inj 40 Mg/4 Ml Vial IV PUSH 40 mg BID TONY Administration Ipratropium [place] 0.5 mg 07/11/24 02:00 07/13/24 08:37 Ipratropium Br 0.02% Inh Soln 0.5 Mg/2.5 Ml Vial INHALATION 0.5 mg Q6HRT TONY Administration Lactic Acid 1 applic 07/12/24 09:00 07/13/24 08:51 Lactic Acid 12% Lotion 225 Btl TOPICAL 1 applic QAM TONY Administration Metoprolol Tartrate 12.5 mg 07/11/24 09:00 07/13/24 08:51 Metoprolol Tartrate 12.5 Mg Tablet PO 12.5 mg DAILY TONY Administration Metoprolol Tartrate 25 mg 07/11/24 09:00 07/13/24 08:50 Metoprolol Tartrate 25 Mg Tablet PO 25 mg DAILY TONY Administration Nicotine 1 patch 07/11/24 09:00 07/13/24 08:49 Nicotine (*Pbkc) 7 Mg Patch TRANSDERM 1 patch DAILY TONY Administration Ondansetron HCl 4 mg 07/11/24 00:26 Ondansetron Inj 4 Mg/2 Ml Vial IV PUSH Q4H PRN Nausea Prednisone 40 mg 07/13/24 08:00 07/13/24 08:50 Prednisone 20 Mg Tablet PO 40 mg DAILY@0800 TONY Administration Thiamine HCl 100 mg 07/11/24 09:00 07/13/24 08:50 Thiamine Hcl 100 Mg Tablet PO 100 mg DAILY TONY Administration Radiology Results: ITS Impressions Chest X-Ray 07/10/24 20:32 IMPRESSION: Segmental left and subsegmental right basilar atelectasis/consolidation. Possible small bilateral pleural effusions. Mild interstitial edema overlying emphysematous changes. Chest CTA 07/10/24 23:03 IMPRESSION: No CT evidence of acute pulmonary embolus, noting suboptimal evaluation of the subsegmental pulmonary arteries. Mild pulmonary edema, overlying chronic emphysematous change. Subsegmental bibasilar atelectasis/consolidation. The presence of airway debris could indicate a component of aspiration. Mediastinal lymphadenopathy. Labs Labs: Laboratory Results - last 24 hr 07/13/24 03:25 WBC 9.0 RBC 4.41 L Hgb 13.1 L Hct 41.8 L MCV 94.8 MCH 29.7 MCHC 31.3 L RDW 13.8 Plt Count 198 MPV 10.6 H Immature Gran % (Auto) 0.8 H Neut % (Auto) 83.6 H Lymph % (Auto) 10.3 L [place] % (Auto) 5.3 Eos % (Auto) 0.0 Baso % (Auto) 0.0 L Lymph # (Auto) 0.93 [place] # (Auto) 0.5 Eos # (Auto) 0.0 Baso # (Auto) 0.0 Abs Immat Gran (auto) 0.07 H Absolute Neuts (auto) 7.6 H Absolute Nucleated RBC 0.000 Nucleated RBC % 0.0 Sodium 137 Potassium 4.2 Chloride 94 L Carbon Dioxide 35 H Anion Gap 8 BUN 43 H D Creatinine 0.96 Estim Creat Clear Calc 90 Estimated GFR > 60 Glucose 148 H Calcium 8.7 Magnesium 2.2 Total Bilirubin 0.4 AST 19 ALT 15 Alkaline Phosphatase 76 Total Protein 8.0 Albumin 3.9
--- NOTE | 2024-07-13 12:02 | P.PNIM_ITS ---
Progress Note: A&P Assessment and Plan (1) Acute on chronic respiratory failure with hypoxia and hypercapnia: Code(s): J96.21 - Acute and chronic respiratory failure with hypoxia; J96.22 - Acute and chronic respiratory failure with hypercapnia Status: Acute Assessment and Plan: * O2@4 liters nasal cannula is home oxygen level. * Patient was placed on BiPAP 29/10 with a rate of 18 he is pulling tidal volumes of 450-500 and reports feeling significantly better. * AM ABG on 07/11/24: pH:7.307, pC02 66.9, p02 76.3, HC03 32.7, 02 saturation 93.6. * BIPAP at night and when napping. * Pulmonology consulted. Patient does not have a home Bipap or CPAP. * Pulmonology recommending patient have an at home noninvasive ventilator. * Patient to have noninvasive ventilator delivered to room today to wear tonight and patient is hoping to discharge home tomorrow with noninvasive ventilator to use at home. (2) COPD exacerbation: Code(s): J44.1 - Chronic obstructive pulmonary disease with (acute) exacerbation Status: Acute Assessment and Plan: * Atrovent neb q 6. * Switched to oral Prednisone 40 mg PO daily. * Pulmonology consulted. (3) Acute exacerbation of chronic heart failure: Code(s): I50.9 - Heart failure, unspecified Status: Acute Assessment and Plan: * Furosemide 40 mg IVP BID * Metoprolol 37.5 mg PO daily. * Monitor strict I&O's and daily weights. * Echocardiogram today showed: Summary 1. Definity contrast administered improved wall motion interpretation. 2. Left ventricular chamber dimension is normal. 3. Left ventricular systolic function is normal, estimated at 60-65%. 4. There is mild concentric increased left ventricular wall thickness. 5. The left ventricular diastolic function is normal. 6. E/e' 8 is minimally elevated. 7. Left atrial chamber dimension is mildly enlarged. 8. Right atrial chamber dimension is mildly enlarged. 9. There is mild aortic valve sclerosis. 10. There is trace mitral valve regurgitation. 11. No pulmonary hypertension, estimated pulmonary arterial systolic pressure is 23 mmHg. (4) Tobacco abuse disorder: Code(s): Z72.0 - Tobacco use Status: Acute Assessment and Plan: * Patient has been smoking 5 cigarettes a day. * Nicotine patch (5) Alcohol abuse: Code(s): F10.10 - Alcohol abuse, uncomplicated Status: Acute Assessment and Plan: * CIWA protocol. Drinks 4 shots of fireball a day at home. * Thiamine and folic acid. (6) Stasis dermatitis of both legs: Code(s): I87.2 - Venous insufficiency (chronic) (peripheral) Status: Inactive Assessment and Plan: * Wound consult. * Silver gel applied to wounds on legs. * Lac-hydin lotion to both legs for dry scaly skin. (7) History of intravenous drug use in remission: Code(s): Z87.898 - Personal history of other specified conditions Status: Acute Assessment and Plan: * He has Suboxone listed on his home med rec. Will resume home Suboxone. Subjective Date/time seen: 07/13/24 12:02 Interval history: Patient sitting up in bed. Patient denies chest pain, palpitations, headache, dizziness, nausea, or vomiting. Patient reports that they will deliver the noninvasive ventilator to room today for patient to use overnight and then hopefully discharge tomorrow with ventilator. Patient reports that his legs are improving. Review of Systems Review of Systems: All systems reviewed & are unremarkable except as noted in HPI and below Exam Const: General: comfortable and no acute distress Resp: Effort & Inspection: normal respiratory effort Auscultation: crackles bilateral at the base Cardio: Rate: regular rate Rhythm: regular rhythm Other: Telemetry- SR 90. GI: GI Palp: Yes Soft to palpation Auscultation: normal bowel sounds Neuro: Speech: normal speech Extrem: Other: chronic stasis dermatitis and 1+ pedal edema in lower extremities Psych: Mental Status: mental status grossly normal Affect: normal affect Objective Data Vital Signs Vital Signs: Vital Signs - 24 hr 07/12/24 14:00 07/12/24 14:40 07/12/24 15:38 Temperature 98.4 F Pulse Rate 80 86 Respiratory Rate 20 Blood Pressure 149/79 H Pulse Oximetry 96 Oxygen Delivery Nasal Cannula Oxygen Flow Rate 4 Fraction of Inspired Oxygen 07/12/24 15:55 07/12/24 16:00 07/12/24 16:00 Temperature Pulse Rate 79 Respiratory Rate Blood Pressure Pulse Oximetry 96 Oxygen Delivery Nasal Cannula Nasal Cannula Oxygen Flow Rate 4 4 Fraction of Inspired Oxygen 07/12/24 18:00 07/12/24 20:00 07/12/24 20:00 Temperature 98.3 F Pulse Rate 100 85 Respiratory Rate 20 Blood Pressure 135/63 135/63 Pulse Oximetry 93 Oxygen Delivery Oxygen Flow Rate Fraction of Inspired Oxygen 07/12/24 20:00 07/12/24 20:00 07/12/24 20:37 Temperature Pulse Rate 93 96 Respiratory Rate 20 Blood Pressure Pulse Oximetry 93 94 Oxygen Delivery Nasal Cannula Nasal Cannula Oxygen Flow Rate 4 4 Fraction of Inspired Oxygen 40 36 07/12/24 20:37 07/12/24 20:51 07/12/24 22:00 Temperature Pulse Rate 82 84 93 Respiratory Rate 20 20 Blood Pressure Pulse Oximetry Oxygen Delivery Oxygen Flow Rate Fraction of Inspired Oxygen 07/12/24 23:17 07/12/24 23:56 07/13/24 00:00 Temperature 98.3 F Pulse Rate 79 75 Respiratory Rate 20 20 Blood Pressure 147/78 H 147/78 H Pulse Oximetry 96 96 Oxygen Delivery BiPAP Oxygen Flow Rate Fraction of Inspired Oxygen 07/13/24 00:00 07/13/24 00:00 07/13/24 02:00 Temperature Pulse Rate 69 69 62 Respiratory Rate 20 Blood Pressure Pulse Oximetry 96 Oxygen Delivery BiPAP Oxygen Flow Rate Fraction of Inspired Oxygen 36 07/13/24 02:17 07/13/24 02:17 07/13/24 02:29 Temperature Pulse Rate 67 67 68 Respiratory Rate 19 19 20 Blood Pressure Pulse Oximetry 96 Oxygen Delivery BiPAP Oxygen Flow Rate Fraction of Inspired Oxygen 07/13/24 03:30 07/13/24 04:00 07/13/24 04:00 Temperature 97.8 F Pulse Rate 70 67 Respiratory Rate 19 19 Blood Pressure 145/77 H 145/77 H Pulse Oximetry 98 98 Oxygen Delivery BiPAP Oxygen Flow Rate Fraction of Inspired Oxygen 36 07/13/24 04:00 07/13/24 06:00 07/13/24 07:30 Temperature 97.5 F L Pulse Rate 67 68 87 Respiratory Rate 24 H Blood Pressure 157/96 H Pulse Oximetry 96 Oxygen Delivery Oxygen Flow Rate Fraction of Inspired Oxygen 07/13/24 08:37 07/13/24 08:37 07/13/24 08:50 Temperature Pulse Rate 78 74 Respiratory Rate 20 Blood Pressure Pulse Oximetry 96 Oxygen Delivery Nasal Cannula Oxygen Flow Rate 4 Fraction of Inspired Oxygen 07/13/24 08:51 07/13/24 08:58 07/13/24 11:23 Temperature 98.6 F Pulse Rate 74 83 71 Respiratory Rate 20 22 H Blood Pressure 150/82 H Pulse Oximetry 95 Oxygen Delivery Oxygen Flow Rate Fraction of Inspired Oxygen Intake/Output Intake/Output: Intake & Output 07/10/24 07/11/24 07/12/24 07/13/24 23:59 23:59 23:59 23:59 Intake Total 100 1690 1550 880 Output Total 2500 2100 1535 Balance 100 -126 -082 -665 Meds/Results Medications: Active Medications Generic Name Dose Route Start Last Admin Trade Name Freq PRN Reason Stop Dose Admin Acetaminophen 650 mg 07/11/24 00:26 Acetaminophen 325 Mg Tablet PO Q4H PRN Mild Pain (1-3) or Fever Albuterol 5 mg 07/11/24 02:00 07/13/24 08:37 Albuterol Sulfate Neb 2.5 Mg/3 Ml Inh INHALATION 5 mg Q6HRT TONY Administration Aspirin 81 mg 07/11/24 09:00 07/13/24 08:51 Aspirin 81 Mg Enteric Tablet PO 81 mg DAILY TONY Administration Atorvastatin Calcium 20 mg 07/11/24 09:00 07/13/24 08:49 Atorvastatin 20 Mg Tablet PO 20 mg DAILY TONY Administration Buprenorphine/Naloxone 3 each 07/11/24 09:00 07/13/24 08:50 Buprenorphine/Naloxone (*Crx) 4 Mg/1 Mg Sl Film SUBLINGUAL 08/10/24 08:59 3 each TID TONY Administration Doxepin HCl 25 mg 07/11/24 21:00 07/12/24 20:35 Doxepin Hcl 25 Mg Capsule PO 25 mg HS TONY Administration Enoxaparin Sodium 40 mg 07/11/24 09:00 07/13/24 08:51 Enoxaparin 40 Mg/0.4 Ml Syringe SUB-Q 40 mg DAILY TONY Administration Folic Acid 1 mg 07/11/24 09:00 07/13/24 08:51 Folic Acid 1 Mg Tablet PO 1 mg DAILY TONY Administration Furosemide 40 mg 07/11/24 09:00 07/13/24 08:49 Furosemide Inj 40 Mg/4 Ml Vial IV PUSH 40 mg BID TONY Administration Ipratropium [place] 0.5 mg 07/11/24 02:00 07/13/24 08:37 Ipratropium Br 0.02% Inh Soln 0.5 Mg/2.5 Ml Vial INHALATION 0.5 mg Q6HRT TONY Administration Lactic Acid 1 applic 07/12/24 09:00 07/13/24 08:51 Lactic Acid 12% Lotion 225 Btl TOPICAL 1 applic QAM TONY Administration Metoprolol Tartrate 12.5 mg 07/11/24 09:00 07/13/24 08:51 Metoprolol Tartrate 12.5 Mg Tablet PO 12.5 mg DAILY TONY Administration Metoprolol Tartrate 25 mg 07/11/24 09:00 07/13/24 08:50 Metoprolol Tartrate 25 Mg Tablet PO 25 mg DAILY TONY Administration Nicotine 1 patch 07/11/24 09:00 07/13/24 08:49 Nicotine (*Pbkc) 7 Mg Patch TRANSDERM 1 patch DAILY TONY Administration Ondansetron HCl 4 mg 07/11/24 00:26 Ondansetron Inj 4 Mg/2 Ml Vial IV PUSH Q4H PRN Nausea Prednisone 40 mg 07/13/24 08:00 07/13/24 08:50 Prednisone 20 Mg Tablet PO 40 mg DAILY@0800 TONY Administration Thiamine HCl 100 mg 07/11/24 09:00 07/13/24 08:50 Thiamine Hcl 100 Mg Tablet PO 100 mg DAILY TONY Administration Radiology Results: ITS Impressions Chest X-Ray 07/10/24 20:32 IMPRESSION: Segmental left and subsegmental right basilar atelectasis/consolidation. Possible small bilateral pleural effusions. Mild interstitial edema overlying emphysematous changes. Chest CTA 07/10/24 23:03 IMPRESSION: No CT evidence of acute pulmonary embolus, noting suboptimal evaluation of the subsegmental pulmonary arteries. Mild pulmonary edema, overlying chronic emphysematous change. Subsegmental bibasilar atelectasis/consolidation. The presence of airway debris could indicate a component of aspiration. Mediastinal lymphadenopathy. Labs Labs: Laboratory Results - last 24 hr 07/13/24 03:25 WBC 9.0 RBC 4.41 L Hgb 13.1 L Hct 41.8 L MCV 94.8 MCH 29.7 MCHC 31.3 L RDW 13.8 Plt Count 198 MPV 10.6 H Immature Gran % (Auto) 0.8 H Neut % (Auto) 83.6 H Lymph % (Auto) 10.3 L [place] % (Auto) 5.3 Eos % (Auto) 0.0 Baso % (Auto) 0.0 L Lymph # (Auto) 0.93 [place] # (Auto) 0.5 Eos # (Auto) 0.0 Baso # (Auto) 0.0 Abs Immat Gran (auto) 0.07 H Absolute Neuts (auto) 7.6 H Absolute Nucleated RBC 0.000 Nucleated RBC % 0.0 Sodium 137 Potassium 4.2 Chloride 94 L Carbon Dioxide 35 H Anion Gap 8 BUN 43 H D Creatinine 0.96 Estim Creat Clear Calc 90 Estimated GFR > 60 Glucose 148 H Calcium 8.7 Magnesium 2.2 Total Bilirubin 0.4 AST 19 ALT 15 Alkaline Phosphatase 76 Total Protein 8.0 Albumin 3.9 Quality VTE Prophylaxis VTE prophylaxis: pharmacologic ordered (Lovenox 40 mg subQ daily.)
[2024-07-13] MEDS: DOXEPIN HCL 25 MG CAPSULE PO (21:10)
[2024-07-14] VITALS (13 sets, daily range): BP systolic 134–181; BP diastolic 71–94; PULSE 64–90; RESP 16–24; TEMP 36.8–36.9; O2SAT 93–99
[2024-07-14 04:43] LABS: Basophils Percent Auto 0.1 % (0.2-1.2); Eosinophils Percent Auto 0.1 % (0-4.4); Hematocrit 42.9 % (42.0-52.0); Hemoglobin 13.3 g/dL (14.0-18.0); Immature Granulocyte Absolute 0.05 K/mm3 (0.00-0.031); Immature Granulocyte Percent A 0.5 % (0-0.5); Lymphocytes Absolute Auto 3.07 K/mm3 (0.9-3.2); Lymphocytes Percent Auto 31.9 % (18.3-44.2); Mean Corpuscular Hemoglobin 29.8 pg (26-34); Mean Corpuscular Volume 96.2 fl (80-100); Mean Platelet Volume 10.4 fl (7.4-10.4); Monocytes Absolute Auto 0.9 K/mm3 (0.1-0.6); Monocytes Percent Auto 9.8 % (2.6-8.5); Neutrophils Absolute Auto 5.5 K/mm3 (1.3-6.7); Neutrophils Percent Auto 57.6 % (45.5-73.1); Platelet Count Result 192 k/mm3 (150-375); Red Blood Count 4.46 M/mm3 (4.6-6.20); Red Cell Distribution Width 14.3 % (11.5-14.5); White Blood Count 9.6 K/mm3 (4.5-10.0)
[2024-07-14 04:56] LABS: Alanine Aminotransferase 14 U/L (6-50); Albumin Level 4.1 g/dL (3.5-5.1); Alkaline Phosphatase 75 U/L (38-126); Aspartate Amino Transferase 20 U/L (17-59); Bilirubin,Total 0.4 mg/dL (0.2-1.3); Blood Urea Nitrogen 39 mg/dL (9-20); Carbon Dioxide > 40 mmol/L (22-30); Chloride 93 mmol/L (98-107); Estimated CRCL calculation 81 ml/min; Estimated Glomerular Filt Rate > 60; Glucose 104 mg/dL (65-110); Magnesium 2.4 mg/dL (1.6-2.3); Sodium 140 mmol/L (137-145)
[2024-07-14 05:13] LABS: Alveolar/Arterial O2 Gradient 122.8 mmHg; Base Excess ABG 10.6 mEq/l (+/-2.0); Fractional Inspired Oxygen 36 %; HCO3 ABG 37.5 mEq/l (22.0-26.0); Oxygen Content ABG 18.2 %vol (16.0-22.0); Oxygen Saturation ABG 92.7 % (95.0-100.0); Oxyhemoglobin 91.8 % THb (90.0-100.0); PCO2 ABG 59.1 mmHg (35.0-45.0); PO2 ABG 65.3 mmHg (80.0-100.0); PO2 FiO2 Ratio Arterial Blood 1.81 %; Total Hemoglobin 14.1 g/dL (12.0-18.0)
[2024-07-14 05:14] LABS: Device OTHER DEVICE; Modified Allen's Test Pass; Site Drawn RIGHT RADIAL
[2024-07-14] MEDS: IPRATROPIUM BR 0.02% INH SOLN 0.5 MG/2.5 ML VIAL INHALATION (08:16)
[2024-07-14] MEDS: ALBUTEROL SULFATE NEB 2.5 MG/3 ML INH 5 MG INHALATION (08:16)
[2024-07-14] MEDS: NICOTINE (*PBKC) 7 MG PATCH 1 PATCH TRANSDERM (08:45)
[2024-07-14] MEDS: ENOXAPARIN 40 MG/0.4 ML SYRINGE SUB-Q (08:46)
[2024-07-14] MEDS: FOLIC ACID 1 MG TABLET PO (08:46)
[2024-07-14] MEDS: METOPROLOL TARTRATE 12.5 MG TABLET PO (08:46)
[2024-07-14] MEDS: predniSONE 20 MG TABLET 40 MG PO (08:46)
[2024-07-14] MEDS: METOPROLOL TARTRATE 25 MG TABLET PO (08:46)
[2024-07-14] MEDS: FUROSEMIDE INJ 40 MG/4 ML VIAL IV PUSH (08:46)
[2024-07-14] MEDS: ATORVASTATIN 20 MG TABLET PO (08:46)
[2024-07-14] MEDS: LACTIC ACID 12% LOTION 225 BTL 1 APPLIC TOPICAL (08:47)
[2024-07-14] MEDS: THIAMINE HCL 100 MG TABLET PO (08:47)
[2024-07-14] MEDS: BUPRENORPHINE/NALOXONE (*CRX) 4 MG/1 MG SL FILM 3 EACH SUBLINGUAL (08:50)
[2024-07-14] MEDS: ASPIRIN 81 MG ENTERIC TABLET PO (08:50)
--- NOTE | 2024-07-14 09:58 | P.PNPL_ITS ---
Progress Note: A&P Assessment and Plan (1) COPD exacerbation: Code(s): J44.1 - Chronic obstructive pulmonary disease with (acute) exacerbation Status: Acute (2) Acute on chronic respiratory failure with hypoxia and hypercapnia: Code(s): J96.21 - Acute and chronic respiratory failure with hypoxia; J96.22 - Acute and chronic respiratory failure with hypercapnia Status: Acute Assessment and Plan: This 64-year-old man, with a history of obesity and chronic hypoxemic hypercapnic respiratory failure, likely due to a combination of obesity hypoventilation syndrome and moderately severe obstructive airway disease, presented with shortness of breath and increased lower extremity edema. He is currently being treated for acute on chronic hypercapnic respiratory failure, which appears to be an exacerbation of his chronic condition involving both obesity hypoventilation and moderately severe obstructive airway disease. A rev iew of his electronic medical record indicates that his hypercapnic respiratory failure dates back to February 2020. Since then, he has had multiple hospital admissions with similar symptoms related to his underlying conditions. The patient has received treatment with BiPAP support, intravenous steroids, short-acting bronchodilators, and Lasix, resulting in an improvement in his respiratory status. An ApneaLink study conducted last night with a 4 liters/minute oxygen bleed showed no evidence of oxyhemoglobin desaturation. Upon questioning, the patient reported that he slept very well last night and is eager to go home. Although he currently sees a engine tester at [place], he is willing to visit our outpatient pulmonary clinic. Plan: From a respiratory standpoint, the patient can be discharged home with oxygen set at 4 liters/minute at night via the home ventilator unit and 3 liters/minute during the day. He should be started on a maintenance bronchodilator such as Anoro and continue using nebulized short-acting bronchodilators at home. Additionally, he should take prednisone 40 mg daily for the next 3 days. The patient has been provided with our pulmonary clinic's contact information to schedule an appointment in approximately 3-4 weeks. I will notify our scheduling special education secretary to facilitate this appointment. At this point, we are signing off; please call with any questions. (3) Edema of both legs: Code(s): R60.0 - Localized edema Status: Acute Subjective Date/time seen: 07/14/24 09:58 Interval history: Patient has no new respiratory symptoms. Underwent ApneaLink study on home ventilator and supplemental oxygen. Eager to go home. Review of Systems Review of Systems: All systems reviewed & are unremarkable except as noted in HPI and below (HPI and below) Exam Narrative: GENERAL APPEARANCE: Well developed, well nourished, alert and cooperative, obese who appears to be mild respiratory distress while sitting in chair and breathing supplemental oxygen SKIN: Inspection of the skin reveals no rashes, ulcerations or petechiae. HEENT: Sclerae anicteric and conjunctivae pink and moist. Extraocular movements were intact and pupils were equal. Dry oral mucosa NECK: Supple. There was no thyroid enlargement, and no tenderness, or masses were felt. CHEST: Normal AP diameter and normal contour without any kyphoscoliosis. LUNGS: Crackles at bases posteriorly no wheezing CARDIAC: There was a regular rate and rhythm without any murmurs, gallops, rubs. ABDOMEN: Soft and nontender with normal bowel sounds. There was no organomegaly. LYMPH NODES: No lymphadenopathy was appreciated in the neck,. EXTREMITIES: No cyanosis, clubbing present in upper extremities, chronic stasis dermatitis and 1+ pedal edema in lower extremities NEUROLOGIC: Alert and oriented x 3. Normal affect. Objective Data Vital Signs Vital Signs: Vital Signs - 24 hr 07/13/24 10:00 07/13/24 11:23 07/13/24 12:00 Temperature 37.0 C Pulse Rate 88 71 Pulse Rate [Apical Monitor] Respiratory Rate 22 H Blood Pressure 150/82 H 150/82 H Pulse Oximetry 95 Oxygen Delivery Oxygen Flow Rate 07/13/24 12:00 07/13/24 12:00 07/13/24 14:00 Temperature Pulse Rate 82 78 Pulse Rate [Apical Monitor] Respiratory Rate Blood Pressure Pulse Oximetry 96 Oxygen Delivery Nasal Cannula Oxygen Flow Rate 4 07/13/24 14:46 07/13/24 15:01 07/13/24 16:00 Temperature 36.8 C Pulse Rate 79 74 90 Pulse Rate [Apical Monitor] Respiratory Rate 22 H 22 H 24 H Blood Pressure 170/94 H Pulse Oximetry 94 Oxygen Delivery Oxygen Flow Rate 07/13/24 16:00 07/13/24 16:00 07/13/24 18:00 Temperature Pulse Rate 73 87 Pulse Rate [Apical Monitor] Respiratory Rate Blood Pressure Pulse Oximetry 96 Oxygen Delivery Nasal Cannula Oxygen Flow Rate 4 07/13/24 19:59 07/13/24 20:00 07/13/24 20:15 Temperature 36.9 C Pulse Rate 95 Pulse Rate [Apical Monitor] Respiratory Rate 24 H Blood Pressure 168/88 H Pulse Oximetry 93 93 Oxygen Delivery Nasal Cannula Oxygen Flow Rate 4 07/13/24 20:15 07/13/24 20:35 07/13/24 21:05 Temperature Pulse Rate 92 97 Pulse Rate [Apical Monitor] 92 Respiratory Rate 20 20 Blood Pressure 168/88 H Pulse Oximetry Oxygen Delivery Oxygen Flow Rate 07/13/24 21:05 07/13/24 22:00 07/13/24 23:45 Temperature 36.8 C Pulse Rate 92 91 86 Pulse Rate [Apical Monitor] Respiratory Rate 24 H 24 H Blood Pressure 141/71 H Pulse Oximetry 93 94 Oxygen Delivery Nasal Cannula Oxygen Flow Rate 4 07/14/24 00:00 07/14/24 00:00 07/14/24 00:45 Temperature Pulse Rate 76 86 Pulse Rate [Apical Monitor] 86 Respiratory Rate 24 H Blood Pressure 141/71 H Pulse Oximetry 94 Oxygen Delivery BiPAP Oxygen Flow Rate 4 07/14/24 02:00 07/14/24 04:00 07/14/24 04:00 Temperature 36.8 C Pulse Rate 64 65 68 Pulse Rate [Apical Monitor] Respiratory Rate 24 H Blood Pressure 134/74 Pulse Oximetry 93 Oxygen Delivery Oxygen Flow Rate 07/14/24 05:00 07/14/24 05:00 07/14/24 06:00 Temperature Pulse Rate 65 68 Pulse Rate [Apical Monitor] 65 Respiratory Rate 24 H Blood Pressure 134/74 Pulse Oximetry 93 Oxygen Delivery Nasal Cannula Oxygen Flow Rate 4 07/14/24 07:28 07/14/24 08:18 07/14/24 08:18 Temperature 36.9 C Pulse Rate 87 87 Pulse Rate [Apical Monitor] Respiratory Rate 20 16 Blood Pressure 181/94 H Pulse Oximetry 99 98 Oxygen Delivery Nasal Cannula Oxygen Flow Rate 4 07/14/24 08:32 07/14/24 08:46 07/14/24 08:46 Temperature Pulse Rate 90 82 82 Pulse Rate [Apical Monitor] Respiratory Rate 18 Blood Pressure Pulse Oximetry Oxygen Delivery Oxygen Flow Rate Intake/Output Intake/Output: Intake & Output 07/11/24 07/12/24 07/13/24 07/14/24 23:59 23:59 23:59 23:59 Intake Total 1690 1550 2560 880 Output Total 2838 3606 1537 1222 Balance -810 -550 7931 -015 Meds/Results Medications: Active Medications Generic Name Dose Route Start Last Admin Trade Name Freq PRN Reason Stop Dose Admin Acetaminophen 650 mg 07/11/24 00:26 Acetaminophen 325 Mg Tablet PO Q4H PRN Mild Pain (1-3) or Fever Albuterol 5 mg 07/11/24 02:00 07/14/24 08:16 Albuterol Sulfate Neb 2.5 Mg/3 Ml Inh INHALATION 5 mg Q6HRT TONY Administration Aspirin 81 mg 07/11/24 09:00 07/14/24 08:50 Aspirin 81 Mg Enteric Tablet PO 81 mg DAILY TONY Administration Atorvastatin Calcium 20 mg 07/11/24 09:00 07/14/24 08:46 Atorvastatin 20 Mg Tablet PO 20 mg DAILY TONY Administration Buprenorphine/Naloxone 3 each 07/11/24 09:00 07/14/24 08:50 Buprenorphine/Naloxone (*Crx) 4 Mg/1 Mg Sl Film SUBLINGUAL 08/10/24 08:59 3 each TID TONY Administration Doxepin HCl 25 mg 07/11/24 21:00 07/13/24 21:10 Doxepin Hcl 25 Mg Capsule PO 25 mg HS TONY Administration Enoxaparin Sodium 40 mg 07/11/24 09:00 07/14/24 08:46 Enoxaparin 40 Mg/0.4 Ml Syringe SUB-Q 40 mg DAILY TONY Administration Folic Acid 1 mg 07/11/24 09:00 07/14/24 08:46 Folic Acid 1 Mg Tablet PO 1 mg DAILY TONY Administration Furosemide 40 mg 07/11/24 09:00 07/14/24 08:46 Furosemide Inj 40 Mg/4 Ml Vial IV PUSH 40 mg BID TONY Administration Ipratropium [place] 0.5 mg 07/11/24 02:00 07/14/24 08:16 Ipratropium Br 0.02% Inh Soln 0.5 Mg/2.5 Ml Vial INHALATION 0.5 mg Q6HRT TONY Administration Lactic Acid 1 applic 07/12/24 09:00 07/14/24 08:47 Lactic Acid 12% Lotion 225 Btl TOPICAL 1 applic QAM TONY Administration Metoprolol Tartrate 12.5 mg 07/11/24 09:00 07/14/24 08:46 Metoprolol Tartrate 12.5 Mg Tablet PO 12.5 mg DAILY TONY Administration Metoprolol Tartrate 25 mg 07/11/24 09:00 07/14/24 08:46 Metoprolol Tartrate 25 Mg Tablet PO 25 mg DAILY TONY Administration Nicotine 1 patch 07/11/24 09:00 07/14/24 08:45 Nicotine (*Pbkc) 7 Mg Patch TRANSDERM 1 patch DAILY TONY Administration Ondansetron HCl 4 mg 07/11/24 00:26 Ondansetron Inj 4 Mg/2 Ml Vial IV PUSH Q4H PRN Nausea Prednisone 40 mg 07/13/24 08:00 07/14/24 08:46 Prednisone 20 Mg Tablet PO 40 mg DAILY@0800 TONY Administration Thiamine HCl 100 mg 07/11/24 09:00 07/14/24 08:47 Thiamine Hcl 100 Mg Tablet PO 100 mg DAILY TONY Administration Radiology Results: ITS Impressions Chest X-Ray 07/10/24 20:32 IMPRESSION: Segmental left and subsegmental right basilar atelectasis/consolidation. Possible small bilateral pleural effusions. Mild interstitial edema overlying emphysematous changes. Chest CTA 07/10/24 23:03 IMPRESSION: No CT evidence of acute pulmonary embolus, noting suboptimal evaluation of the subsegmental pulmonary arteries. Mild pulmonary edema, overlying chronic emphysematous change. Subsegmental bibasilar atelectasis/consolidation. The presence of airway debris could indicate a component of aspiration. Mediastinal lymphadenopathy. Labs Labs: Laboratory Results - last 24 hr 07/14/24 07/14/24 04:24 04:59 WBC 9.6 RBC 4.46 L Hgb 13.3 L Hct 42.9 MCV 96.2 MCH 29.8 MCHC 31.0 L RDW 14.3 Plt Count 192 MPV 10.4 Immature Gran % (Auto) 0.5 Neut % (Auto) 57.6 Lymph % (Auto) 31.9 [place] % (Auto) 9.8 H Eos % (Auto) 0.1 Baso % (Auto) 0.1 L Lymph # (Auto) 3.07 [place] # (Auto) 0.9 H Eos # (Auto) 0.0 Baso # (Auto) 0.0 Abs Immat Gran (auto) 0.05 H Absolute Neuts (auto) 5.5 Absolute Nucleated RBC 0.000 Nucleated RBC % 0.0 Puncture Site Right radial ABG pH 7.420 ABG pCO2 59.1 H ABG pO2 65.3 L ABG PO2/FiO2 Ratio 1.81 ABG HCO3 37.5 H ABG O2 Saturation 92.7 L ABG O2 Content 18.2 ABG Base Excess 10.6 A-a Gradient 122.8 Oxyhemoglobin 91.8 Total Hemoglobin 14.1 O2 Delivery Device Other device O2 Liters/Min 4.0 FiO2 36 Sodium 140 Potassium 5.0 Chloride 93 L Carbon Dioxide > 40 H Anion Gap BUN 39 H Creatinine 1.08 Estim Creat Clear Calc 81 Estimated GFR > 60 Glucose 104 Calcium 9.0 Magnesium 2.4 H Total Bilirubin 0.4 AST 20 ALT 14 Alkaline Phosphatase 75 Total Protein 8.0 Albumin 4.1
--- NOTE | 2024-07-14 10:13 | P.DS_ITS ---
DS: Admitting Diagnosis Discharge Date 07/14/2024 Admitting Diagnosis Shortness of breath DS: Discharge Diagnosis Discharge Diagnosis (1) Acute on chronic respiratory failure with hypoxia and hypercapnia: Code(s): J96.21 - Acute and chronic respiratory failure with hypoxia; J96.22 - Acute and chronic respiratory failure with hypercapnia Status: Acute (2) COPD exacerbation: Code(s): J44.1 - Chronic obstructive pulmonary disease with (acute) exacerbation Status: Acute (3) Acute exacerbation of chronic heart failure: Code(s): I50.9 - Heart failure, unspecified Status: Acute (4) Tobacco abuse disorder: Code(s): Z72.0 - Tobacco use Status: Acute (5) Alcohol abuse: Code(s): F10.10 - Alcohol abuse, uncomplicated Status: Acute (6) Chronic venous stasis: Code(s): I87.8 - Other specified disorders of veins Status: Acute DS: Summary Hospital Course Hospital Course: Patient with a history of COPD on 4 liters of nasal cannula at home. Patient was not on a home CPAP or BIPAP. Patient reports smoking 5 cigarettes a day. 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 He was told to come to the emergency department but declined. Patient was not taking home blood pressure medications or diuretics. Patient transferred to IMU and placed on BIPAP. Pulmonology saw patient and got patient set up on a noninvasive ventilator. Patient is going home with a noninvasive ventilator. Patient received IV Lasix and transitioned back to oral Lasix. Nebulizer ordered for patient along with inhaler. Blood cultures no growth to date. Patient wore nicotine patch during hospitalization and encouraged to stop smoking. Dryness on legs improved with wound care creams ordered. Radiology Results: ITS Impressions Chest X-Ray 07/10/24 20:32 IMPRESSION: Segmental left and subsegmental right basilar atelectasis/consolidation. Possible small bilateral pleural effusions. Mild interstitial edema overlying emphysematous changes. Chest CTA 07/10/24 23:03 IMPRESSION: No CT evidence of acute pulmonary embolus, noting suboptimal evaluation of the subsegmental pulmonary arteries. Mild pulmonary edema, overlying chronic emphysematous change. Subsegmental bibasilar atelectasis/consolidation. The presence of airway debris could indicate a component of aspiration. Mediastinal lymphadenopathy. Echocardiogram 07/11/24 showed: Summary 1. Definity contrast administered improved wall motion interpretation. 2. Left ventricular chamber dimension is normal. 3. Left ventricular systolic function is normal, estimated at 60-65%. 4. There is mild concentric increased left ventricular wall thickness. 5. The left ventricular diastolic function is normal. 6. E/e' 8 is minimally elevated. 7. Left atrial chamber dimension is mildly enlarged. 8. Right atrial chamber dimension is mildly enlarged. 9. There is mild aortic valve sclerosis. 10. There is trace mitral valve regurgitation. 11. No pulmonary hypertension, estimated pulmonary arterial systolic pressure is 23 mmHg. Status at Discharge Functional status at discharge: independent ambulation Overall status at discharge: patient is progressing back to baseline Time Spent with Patient Time attestation: Total time spent providing and/or coordinating discharge services: Time spent: Greater than 30 minutes Exam Const: General: comfortable and no acute distress Resp: Effort & Inspection: normal respiratory effort Auscultation: crackles bilateral at the base and diminished lung sounds Cardio: Rate: regular rate Rhythm: regular rhythm Other: Telemetry- SR 74 GI: GI Palp: Yes Soft to palpation Auscultation: normal bowel sounds Neuro: General: gait normal Extrem: Other: chronic stasis dermatitis and 1+ pedal edema in lower extremities. Psych: Mental Status: mental status grossly normal Affect: normal affect DS: Data Data Completed and Pending Labs on day of discharge: Labs from last 24 hours 07/14/24 07/14/24 04:59 04:24 WBC 9.6 RBC 4.46 L Hgb 13.3 L Hct 42.9 MCV 96.2 MCH 29.8 MCHC 31.0 L RDW 14.3 Plt Count 192 MPV 10.4 Immature Gran % (Auto) 0.5 Neut % (Auto) 57.6 Lymph % (Auto) 31.9 [place] % (Auto) 9.8 H Eos % (Auto) 0.1 Baso % (Auto) 0.1 L Lymph # (Auto) 3.07 [place] # (Auto) 0.9 H Eos # (Auto) 0.0 Baso # (Auto) 0.0 Abs Immat Gran (auto) 0.05 H Absolute Neuts (auto) 5.5 Absolute Nucleated RBC 0.000 Nucleated RBC % 0.0 Puncture Site Right radial ABG pH 7.420 ABG pCO2 59.1 H ABG pO2 65.3 L ABG PO2/FiO2 Ratio 1.81 ABG HCO3 37.5 H ABG O2 Saturation 92.7 L ABG O2 Content 18.2 ABG Base Excess 10.6 A-a Gradient 122.8 Oxyhemoglobin 91.8 Total Hemoglobin 14.1 O2 Delivery Device Other device O2 Liters/Min 4.0 FiO2 36 Sodium 140 Potassium 5.0 Chloride 93 L Carbon Dioxide > 40 H Anion Gap BUN 39 H Creatinine 1.08 Estim Creat Clear Calc 81 Estimated GFR > 60 Glucose 104 Calcium 9.0 Magnesium 2.4 H Total Bilirubin 0.4 AST 20 ALT 14 Alkaline Phosphatase 75 Total Protein 8.0 Albumin 4.1 Preliminary micro results at discharge 07/10/24 20:36 Blood Culture - Preliminary Blood 07/10/24 20:36 Blood Culture - Preliminary Blood Discharge Plan Discharge Attending physician on discharge: Rick Khan Consulting providers: Francisco Fuentes Discharging Clinician: Florina Acharya Anticipated Discharge Date/Time: 07/14/24 11:30 Patient Disposition: Home, Self-Care Activity: may shower and as tolerated Diet: heart healthy Discharge Instructions: * Oxygen at 3 liters nasal cannula during the day and 4 liters/minute at night via the home ventilator. * Weigh yourself daily. Report to provider if you gain 3 pounds in one day or 1 pound a day for 3 days in a row. * Elevate legs when possible. Keep sodium less that 2 gram a day. * Take medications as prescribed. Thank you for entrusting [facility] with your healthcare! Patient Instructions: Antibiotic Form, Heart Failure (DC), How to Stop Smoking (DC), Cigarette Smoking and Your Health (GEN), COPD (Chronic Obstructive Pulmonary Disease) (GEN), DASH Eating Plan (DC), Alcohol Dependence (DC) Patient Language: Mongolian Stand Alone Forms: General Discharge Information Follow-up/Referrals: Marcia,Elton Tan [Primary Care Provider] - 1 Week Francisco Fuentes MD [Physician] - 3 Weeks Discharge Medications: New prednisone 20 mg Tablet 40 mg PO DAILY@0800 Qty: 6 0RF thiamine HCl (vitamin B1) [Vitamin B-1] 100 mg Tablet 100 mg PO DAILY Qty: 14 0RF folic acid 1 mg Tablet 1 mg PO DAILY Qty: 14 0RF Lac-Hydrin Five 5 % Lotion 1 applic topical QAM Qty: 226 0RF nicotine 7 mg/24 hr Patch 24 Hour 1 patch transdermal DAILY Qty: 14 0RF Anoro Ellipta 62.5-25 mcg/actuation blister with device 1 inh inhalation DAILY Qty: 60 0RF ipratropium-albuterol 0.5 mg-3 mg(2.5 mg base)/3 mL solution for nebulization 3 ml inhalation Q6H PRN (Reason: shortness of breath or wheezing) Qty: 90 0RF (DME) nebulizer and compressor Device See Rx Instructions .Route Qty: 1 0RF Rx Instructions: As directed Continued ammonium lactate 12 % lotion 1 applic TOPICAL BID Rx Instructions: apply to bilateral legs BID atorvastatin 20 mg tablet 20 mg PO DAILY fluconazole 150 mg tablet 150 mg PO WEEKLY metoprolol tartrate 37.5 mg tablet 37.5 mg PO DAILY buprenorphine-naloxone 12-3 mg film 1 film sublingual TID furosemide [Lasix] 40 mg tablet 40 mg PO BID aspirin 81 mg tablet,delayed release (DR/EC) 81 mg PO DAILY albuterol sulfate 90 mcg/actuation HFA aerosol inhaler 2 puff INHALATION QID PRN (Reason: Shortness Of Breath Or Wheezing) Changed doxepin 25 mg capsule 25 mg PO HS PRN (Reason: insomnia) Qty: 14 0RF Discontinued azithromycin 500 mg tablet 500 mg PO DAILY 3 Days Qty: 3 0RF Date of admission: 07/11/24 00:26 Primary Care Provider: MarciaDominick Admitting Provider: Kiana Yuen Attending physician on admission: Eugenio Jordan Condition: Improved Hospitalist MIPS Heart Failure (Exclusion) Patient has history of Heart Transplant or Left Ventricular Assistive Device?: No IF YES, STOP HERE Heart Failure (Qualifier) Patient has current or prior documentation of LVEF less than or equal to 40%, or mod/servere depressed LVSF?: No IF NO, STOP HERE
== END 2024-07-14 12:59 | disposition home or self-care (01) | DRG 133 ==
LOC: ANHED 20:03 → ANHIMU 07-11 01:22
PROVIDERS: Internal Medicine Pulmonary Disease; Admitting Provider Internal Medicine; Emergency Provider Student in an Organized Health Care Education/Training Program; PCP Internal Medicine Infectious Disease; Visit Provider Nurse Practitioner Family
DX: J96.22 Acute and chronic respiratory failure with hypercapnia (principal); J44.1 Chronic obstructive pulmonary disease with (acute) exacerbation; J96.21 Acute and chronic respiratory failure with hypoxia; F10.10 Alcohol abuse, uncomplicated; Z99.81 Dependence on supplemental oxygen; Z20.822 Contact with and (suspected) exposure to COVID-19; Z68.36 Body mass index [BMI] 36.0-36.9, adult; E66.2 Morbid (severe) obesity with alveolar hypoventilation; I11.0 Hypertensive heart disease with heart failure; I50.9 Heart failure, unspecified; F17.210 Nicotine dependence, cigarettes, uncomplicated; I87.2 Venous insufficiency (chronic) (peripheral); Z87.898 Personal history of other specified conditions
CPT/HCPCS: 36415; 36600; 71045; 71275; 80048; 80053; 80307; 82077; 82805; 83690; 83735; 83880; 84484; 85018; 85025; 85380; 85610; 85730; 87040; 87637; 93005; 94002; 94003; 94640; 94762; 96365; 96375; 97161; 97165; 99285; A9270; C8929; J1650; J1940; J2919; J3475; J7512; Q9957; Q9967

== ENCOUNTER 2024-08-03 12:11 | Emergency (ER) | payer OTHER, SELFPAY ==
[2024-08-03] VITALS (8 sets, daily range): BP systolic 121–142; BP diastolic 65–82; PULSE 81–93; RESP 18–22; TEMP 36.7; O2SAT 89–100
--- NOTE | ~2024-08-03 | XR_ITS ---
Portable chest x-ray Comparison: 07/10/2024 Clinical History: Shortness of breath Findings: There is central congestive change and mild pulmonary edema. No definite pleural effusion. Cardiomediastinal silhouette is stable. Bones and soft tissues are unremarkable. Impression: Central congestive change and mild pulmonary edema. Cardiomegaly. Reviewed, dictated and finalized at location . Impression: Central congestive change and mild pulmonary edema. Cardiomegaly.
--- NOTE | 2024-08-03 12:12 | ECG_ITS ---
Test Date: 2024-08-03 12:18:09 Measurements Intervals [place] Rate: 91 P: 33 SC: 181 QRS: 44 QRSD: 100 T: 63 QT: 370 QTc: 457 Interpretive Statements SINUS RHYTHM INCOMPLETE RIGHT BUNDLE BRANCH BLOCK BASELINE ARTIFACT- I, III, AVR, AVL, AVF, V3 BORDERLINE ECG Compared to ECG 07/10/2024 22:48:53 No significant changes Electronically Signed On 08-03-2024 12:55:10 CDT by Dionicio Danielle D.O.
--- OUTSIDE RECORDS SUMMARY | 2024-08-03 12:14 | XMS_ITS | Referral Summary ---
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 Right knee pain 04/28/2022 Assessment & Plan (04/29/2022 1:57 PM REHAB DEPARTMENT MANAGER): Chronic. Right knee MRI 02/2022 demonstrated fracture of right medial femoral condyle, tear of right medial meniscus, and effusion/synovitis. Ortho recommended non op, WBAT. Has not followed up with ortho after discharge. -Encourage ortho follow up -Voltaren gel -APAP -seen by PT/OT; will discharge with walker and home therapy Assessment & Plan (04/28/2022 1:14 AM REHAB DEPARTMENT MANAGER): Chronic. Right knee MRI 02/2022 demonstrated fracture of right medial femoral condyle, tear of right medial meniscus, and effusion/synovitis. Ortho recommended non op, WBAT. Has not followed up with ortho after discharge. -Encourage ortho follow up -Voltaren gel -APAP -PT/OT Alcohol abuse 04/28/2022 Assessment & Plan (04/28/2022 2:18 PM REHAB DEPARTMENT MANAGER): Drinks 2- 3 shots before bed. No active withdrawals. -Thiamine, folate -Encourage Cessation -Monitor for withdrawal Assessment & Plan (04/28/2022 1:15 AM REHAB DEPARTMENT MANAGER): Drinks 2- 3 shots before bed. No active withdrawals. -Thiamine, folate -Encourage Cessation -Monitor for withdrawal Elevated alkaline phosphatase level 04/28/2022 Assessment & Plan (04/30/2022 4:09 PM REHAB DEPARTMENT MANAGER): Unclear etiology. HCV positive. GGTP elevated. Intra and extrahepatic dilatation noted on US; MRI to be performed later this evening. Assessment & Plan (04/28/2022 1:15 AM REHAB DEPARTMENT MANAGER): Unclear etiology. HCV positive. -Check GGT and Liver ultrasound for now. HCV (hepatitis C virus) 04/28/2022 Assessment & Plan (04/28/2022 2:20 PM REHAB DEPARTMENT MANAGER): Chronic and untreated. Missed ID clinic appointment 04/20/22; stated getting a ride is the problem. -Genotype pending. -Needs outpatient follow up. Assessment & Plan (04/28/2022 1:16 AM REHAB DEPARTMENT MANAGER): Chronic and untreated. Missed ID clinic appointment 04/20/22. -Needs outpatient follow up. Acute on chronic diastolic heart failure 023 Assessment & Plan (04/29/2022 1:54 PM REHAB DEPARTMENT MANAGER): TTE with normal EF. Previously g1DD and increased RVSP. -S/P 60mg IV Lasix in ED, then 40mg IV BID daily -Will change to Lasix 40mg po 04/30 -Continue metoprolol, statin, ASA Assessment & Plan (04/28/2022 1:17 AM REHAB DEPARTMENT MANAGER): TTE with normal EF. Previously g1DD and increased RVSP. Hypervolemic on examination today. -S/P 60mg IV Lasix in ED, continue 40mg IV BID daily -Monitor electrolytes and replete -Continue metoprolol, statin, ASA Venous stasis dermatitis of both lower extremiti es 04/27/2022 Assessment & Plan (04/29/2022 1:54 PM REHAB DEPARTMENT MANAGER): Chronic venous stasis dermatitis. No infectious symptoms, [...] following. Assessment & Plan (04/28/2022 1:10 AM REHAB DEPARTMENT MANAGER): Chronic venous stasis dermatitis. No infectious symptoms, normal lactate, no fevers, and no WBC making infection less concerning though given ulcer on left lateral leg, cannot rule out superimposed infection. Also has prior dopplers demonstrating chronic DVT at the level of the popliteal vein in the left. Post thrombotic changes could be contributing though bilateral symptoms. Discussed with vascular information systems planner about AC in chronic DVTs and no [...] 09/20/2020 Assessment & Plan (04/30/2022 4:08 PM REHAB DEPARTMENT MANAGER): Elevated total protein thought to be related to HCV. -Check SPEP/UPEP given alk phos elevation. Immunofixation unremarkable. UPEP pending. -Needs to follow up with ID for HCV treatment. Assessment & Plan (04/28/2022 1:13 AM REHAB DEPARTMENT MANAGER): Elevatedt total protein thought to be related [...] 08/22/2019 Assessment & Plan (04/30/2022 4:09 PM REHAB DEPARTMENT MANAGER): Smokes @ 1ppd -Duonebs for now -Smoking cessation; wants nicotine patch in the hospital; states he has some at home and does not need any prescribed. Assessment & Plan (04/28/2022 1:11 AM REHAB DEPARTMENT MANAGER): Wheezing bilaterally. Denies SOB. Still smoking. Not [...] abuse Assessment & Plan (04/30/2022 4:07 PM REHAB DEPARTMENT MANAGER): Active use of Fentanyl. No longer followed in clinic for Suboxone; was being followed at [facility] in [place] up until 2mo ago per pt. -Encourage cessation -Seen for substance use. Pt is currently on patch. When discussing f/u at [facility], he reports that he plans on quitting on his own. On further discussion, he agreed to an appointment - he will be seeing them on Tuesday. Assessment & Plan (04/28/2022 1:12 AM REHAB DEPARTMENT MANAGER): Active use of Fentanyl. No longer followed [...] Assessment & Plan (08/22/2019 5:28 AM CDT): [place] most likely to be drug-induced reaction. No [...] often do you attend chur ch or quaker services? Never 02/24/2022 Do you belong to any clubs o r organizations such as presybeterian groups, unions, fraternal or athletic groups, or [...] place to sleep or slept in a retirement (including now)? No 02/24/2022 Personal Safety Answer Date Recorded Have you ever been in or are you currently in a harmful physical or emotional relationship or is someone making you feel afraid or unsafe? Denies 11/26/2022 Sex and Gender Information Value Date Recorded Sex Assigned at Not on file Legal Sex Male 6:41 PM REHAB DEPARTMENT MANAGER Gender Identity Not on file Sexual Orientation [...] (258 lb 6.4 oz) 06/04/2022 9:57 AM REHAB DEPARTMENT MANAGER Height 182.9 cm (6' 0.01 ) 06/04/2022 9:57 AM CS T Body Mass Index 35.04 06/04/2022 9:57 AM REHAB DEPARTMENT MANAGER Plan of Treatment Not on file Procedures Procedure Name Priority Date/Time Associated Diagnosis Comments HEPATITIS C GENOTYPE Routine 06/04/2022 11:06 AM REHAB DEPARTMENT MANAGER Acute hepatitis C virus infection without hepatic coma CT ABDOMEN PELVIS WO CONTRAST 09/06/2020 12:00 AM CDT from Last 3 Months or Most Recently Relevant to Health Maintenance Results * Hepatitis C genotype (06/04/2022 11:06 AM REHAB DEPARTMENT MANAGER) HCV genotype JOANNE BELTRAN [facility] Comment: HCV Genotype, S was cancelled on 06/09/2022 at 16:01; Duplicate test request. Test Performed by: [facility] [address] [place] [address] Lead Software Developer: Harpal Gregory M.D. Ph.D.; CLIA# [id number] Blood 06/04/2022 11:0 6 AM REHAB DEPARTMENT MANAGER 06/04/2022 1:32 PM REHAB DEPARTMENT MANAGER us Gudelia Singh MD LAB MICROBIOLOGY - GENERAL ORDER TATYANA Final Result [facility]IN [facility] Department [place] [address] * CT Abdomen Pelvis WO Contrast (09/06/2020 12:00 AM CDT) Anatomical Region Laterality Modality Body N/A Computed Tomogra phy 09/06/2020 2:12 PM CDT Narrative 09/06/2020 2:23 PM CDT Patient Name: OZZY CH Ordering Dr: Francesca Zazueta MD D.O.B: 1960 Exam Date: 09/06/20 0000 Age: 60 Sex: Male MR#: [id number] Loc: S220-02 RADIOLOGY REPORT Order #[id number] CT Scan CT Abd/Pelvis WO IV Contrast [...] signed by Danette MILLER T: Report ID: [id number] Reading Location: [place] [address] REPORT ELECTRONICALLY SIGNED IN OTHER VENDOR SYSTEM Resulting Agency Comment I Procedure Note Danette Maya MD - 09/06/2020 Patient Name: OZZY CH Dr: Francesca Zazueta MD D.O.B: 1960 Exam Date: 09/06/20 0000 Age: 60 Sex: Male MR#: [id number] Loc: S220-02 RADIOLOGY REPORT Order #[id number] CT Scan CT Abd/Pelvis WO IV Contrast [...] by Danette Maya TS T: Report ID: [id number] Reading Location: [place] [address] REPORT ELECTRONICALLY SIGNED IN OTHER VENDOR SYSTEM Francesca Zazueta MD IM CT PROCEDUR ES Final Result from Last 3 Months or Most Recently Relevant to Health Maintenance Insurance [facility] Advance Directives For more information, please contact: [phone] * Full Code (Latest Code Status on [...] 5:04 AM 08/22/2019 9:25 PM Care Teams Nail Assembly Machine Operator Relationship Specialty Start Date End Date Tomeka Knight PA PCP - General Physician Carton Folder 06/28/19
--- OUTSIDE RECORDS SUMMARY | 2024-08-03 12:14 | XMS_ITS ---
Author Organization [facility] Address [address] [place] [address] Care Team Providers Care Animal Shelter Supervisor Name Role Phone Roney Zurita Primary Care Provider [phone] BriellehosseinArabella Unavailable [phone] REASON FOR VISIT Walk-In Medications Medication SIG [...] MG 1 tablet Orally Once a day [facility] Active Aspirin 81 81 MG 1 tablet Orally Once a day Active Buprenorphine HCl-Naloxone HCl 12-3 MG 1 film under the tongue and allow to dissolve Sublingual three times daily 07/06/2024 Active Social History Sex Assigned At : Social History Observation Description Sex Assigned At Male Vital Signs Weight 266.0 lbs 07/06/2024 Height 70 in 07/06/2024 BMI 38.16 kg/m2 07/06/2024 Blood pressure systolic 162 mm Hg 03/21/20 25 Blood pressure diastolic 88 mm Hg 025 Heart Rate 111 /min 07/06/2024 Oximetry 92 % 07/06/2024 Respiratory Rate 16 /min 07/06/2024 Encounters Encounter Location Date Provider Diagnosis [address] [place] [address] 07/06/2024 Arabella Mcpherson Opioid use disorder F11.90 and Nutritional counseling [...] self-administe r their own oral medications per [facility]o Protocol. 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 S creening: [place] Suicide Severity Rating Scale (LF) D o [...] 07/2021knee injury - [place] 05/01/2021neumonia 2022spiked drink oma-[place] 12/2023 * Family History: F ather: . [...] %:92, RR:16, Pain scale:7. * Examination: A [facility] Physical Assessment: Intoxication and Withdrawal [...] self- administer their own oral medications per Yeso Protocol.?? * Recommended Wellness and Pre vention Guidelines: * S ashia clemens L ast Done N ext Due A ction Taken N ONCOMPLIANT C olorectal cancer screening - 0 07/06/2024 - * Procedure Codes: 3 008F BODY MASS INDEX [id number] MEDICAL NUTRITION, INDIV, [id number] TOBACCO NON-USER * Preventive Medicine: Counseling: C are goal follow-up plan: B RI management provided Y va, Tammy grewal Normal BMI Follow-up L selwyn education regarding diet. * Follow Up: 4 Weeks (Reason: Jun/) * * Sign off status: Completed true * Provider: Ronnie Mcpherson, MSN, CRANE HELPER, PMHNP-BC Date: 0 07/06/2024 Generated for Printing/Faxing/eTransmitting on: 0 08/03/2024 12:14 PM CDT History and Physical Notes * [...] Not at all Total Score: 0 Screening [place] Suicide Sev erity Rating Scale (LF) Do [...]
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
--- OUTSIDE RECORDS SUMMARY | 2024-08-03 12:15 | XMS_ITS | Data Portability ---
Author Organization [facility] Address [address] [place] [address] Care Team Providers Care X Ray Equipment Mechanic Name Role Phone TOMEKA MONTELONGO Primary Care [...] serum or plasma 2024 025 [facility], [address] [place] [address], [address], [place], [address], 06/13/2024 06:25:12 urinalysi s macro (dipstick ) panel, urine 2024 025 [facility], [address] [facility], [address], [place], [address], 06/12/2024 08:24:22 CMP, serum or plasma 2024 025 [facility], [address] [place] [address], [address], [place], [address], 06/12/2024 08:24:21 CBC w/ auto diff 2024 025 [facility], [address] [place] [address] Alexand[address], [address], [place], [address], 06/12/2024 08:24:24 lipid panel, serum 2024 025 [facility], [address] [place] [address] [address], [address], [place], [address], 06/12/2024 08:24:19 vitamin D, 25-hydrox y, total, serum 2024 025 [facility], [address] [place] [address] [address], [address], [place], [address], 06/13/2024 06:25:16 TSH, ultra-sen sitive, serum 2024 025 [facility], [address] [place] [address], [address], [place], [address], 06/13/2024 06:25:14 drug screen, urine 2024 025 [facility], [address] [place] [address] [address], [address], [place], [address], 06/13/2024 06:25:13 PSA, total, serum or plasma 2024 025 [facility], [address] [place] [address] [address], [address], [place], [address], 06/13/2024 06:25:15 albumin/c reatinine , mass ratio, urine 2022 023 [facility], [address] [place] [address] [address], [address], [place], [address], 09/22/2022 21:08:04 HbA1c (hemoglob in A1c), blood 2022 023 [facility] HAWKINSCRISTOP[facility], Anahi Hernández [address], [address], [place], [address], 09/22/2022 21:08:05 CMP, serum or plasma 2022 023 [facility], [address], [address], [place], [address], 09/22/2022 21:08:05 CBC w/ auto diff 2022 023 [facility], [address], [address], [place], [address], 09/22/2022 21:08:06 HbA1c (hemoglob in A1c), blood 2022 023 EMILY In-Office Order, Internal Use Only DO Not Attach Compendium DO Not Attach Compendium, Do Not Delete/merge, [id number] 05/20/2022 16:09:17 CMP, serum or plasma 2022 023 [facility] HAWKINSCRISTOPHER, [address] Vel[address]sh[address], [address], [place], [address], 05/20/2022 22:07:38 CBC w/ auto diff 2022 023 [facility]WK[facility], [address] Glsastaiwogenoshah[address], [address], [place], [address], 05/20/2022 22:07:39 albumin/c reatinine , mass ratio, urine 2022 023 [facility] ROSSCRISTOPHER, Anahi Glassantoinette [address], [address], [place], [address], 05/21/2022 11:12:47 hepatitis C virus RNA, quant, PCR, serum or plasma 2021 022 [facility], [address] [facility] [address], [address], [place], [address], 03/20/2022 22:06:53 CBC w/ auto diff 2021 [facility], [address] [facility] [address], [address], [place], [address], 03/16/2022 22:07:04 CMP, serum or plasma 2021 [facility], [address] [facility] [address], [address], [place], [address], 03/16/2022 22:07:03 HIV 1 + 2, meaningfu l use set 2021 EMILY [facility], [address] [facility], [address], [place], [address], 03/20/2022 22:06:54 Referral podiatris t referral 2024 025 narcisa AVILAM, [address], [address], [place], [address], 07/19/2024 14:56:28 pulmonolo gist referral 2024 025 EMILY Cummings MD, [address] [facility], [place], [address], 06/29/2024 16:39:51 cardiolog ist referral 2024 025 narcisa Danielle DO, [address] [facility] [address], [place], [address], 07/19/2024 14:56:28 physical therapist referral - [place] Location [address] [facility], [address] [facility], [place], [address], 08/02/2024 05:05:31 wound care referral [address] [facility], [address] [facility], 6 [address], [place], [address], 06/17/2022 11:00:39 palliativ e medicine referral - palliativ e 2022 023 [facility], [address], [address], [place], [address], 11/03/2022 15:03:06 cardiolog ist referral 2022 023 [facility], [address] [facility] [address], [address], [place], [address], 07/29/2022 14:29:33 gastroent erologist referral [address], [address], [place], [address], 08/09/2022 17:16:04 orthopedi c surgeon referral 2021 022 [facility] ([facility]), [address] [facility], [address] [place] [address], [address], 04/13/2022 12:39:51 physical therapist referral 2021 022 [facility] (Outpatient Physical Therapy), [address], [place], [address], 05/13/2022 15:19:32 Procedures ankle brachial index complete (PROC) 2020 021 ATHENAFAX [facility] (Surgery Sched), [address] [place], [address], 02/10/2021 16:55:10 Surgeries None recorded. Imaging XR, cervical spine - Chronic neck pain [email or web address], [address], [place], [address], 07/16/2024 10:37:44 LDCT, chest, for lung cancer screening [address], [facility] [address], [place], [address], 07/16/2024 10:37:44 LDCT, chest, for lung cancer screening [address] (Imaging), [address] [place] [address] [address], [place], [address], 05/26/2022 13:28:18 US, duplex, venous, lower extremity [address] (Imaging), [address] [place] [address] [address], [place], [address], 03/18/2022 09:46:48 LDCT, chest, for lung cancer screening [address] (Imaging), [address] [place] [address] [address], [place], [address], 03/18/2022 09:46:52 US, duplex, arterial, lower extremity 2020 021 ATHENAFAX [facility] (Rad), [address], [place], [address], 02/10/2021 17:15:16 XR, ankle 2020 021 [email or web address] [facility]), [address], [place], [address], 02/10/2021 15:47:17 XR, foot 2020 021 [id number] [facility]), [address], [place], [address], 02/10/2021 15:47:55 US, duplex, venous, lower extremity 2020 021 [facility] ([facility] [address] [place], [address], 02/10/2021 17:15:16 Medication Orders fluconazo le 150 mg tablet 2024 025 [facility]92131, [address] [place], [place], [id number], 06/11/2024 14:57:04 albuterol sulfate HFA 90 mcg/actua tion aerosol inhaler 2024 025 [facility] #89946, [address] [place], [place], [id number], 06/11/2024 14:54:01 aspirin 81 mg tablet,de layed release 2024 025 [facility] #40815, [address] [place] [address], [id number], 06/11/2024 14:54:07 metoprolo l tartrate 37.5 mg tablet 2024 025 [facility] #22111, [address], [place], [id number], 06/11/2024 14:54:04 furosemid e 40 mg tablet 2024 025 [facility] #57381, [address] [place] [address], [id number], 06/11/2024 14:53:59 ammonium lactate 12 % lotion 2024 025 [facility] #59404, [address], [place], [id number], 06/11/2024 14:57:55 atorvasta tin 20 mg tablet 2024 025 [facility] #10682, [address], [place], [id number], 06/11/2024 19:34:52 metoprolo l succinate ER 25 mg tablet,ex tended release 24 hr 2022 [address] [facility]57198, [address] , [place], [place], [id number], 06/11/2024 14:05:12 furosemid e 20 mg tablet 2022 [address]23 [facility] #22450, [address] , [place], [place], [id number], 06/11/2024 14:04:57 clotrimaz ole 1 % topical cream 2022 023 [facility] #03015, [address], [place], [id number], 06/11/2024 14:27:37 furosemid e 40 mg tablet 2021 022 [facility] #13090, [address], [place], [id number], 03/15/2022 17:15:24 Patient TargetsNo targets recorded. Patient Instructions Encounter Date Encounter Id Patient Instructions Last Modified By Organization Details Last Modified Time 02/10/2021 [id number] toenail fungus: care instructions fharry Not available 02/10/2021 17:08:03 03/15/2022 [id number] complete PFT w/ post bronchodilator spirometry* Not available 03/15/2022 16:00:52 A healthy lifestyle: care instructions Not available 03/22/2022 20:41:59 knee pain or injury: care instructions Not available 03/22/2022 20:39:23 05/20/2022 [id number] complete PFT w/ post bronchodilator spirometry* EMILY Not available 06/10/2022 06:06:21 A healthy lifestyle: care instructions Not available 05/22/2022 08:58:45 knee pain or injury: care instructions Not available 05/22/2022 08:58:45 09/21/2022 [id number] A healthy lifestyle: care instructions Not available 09/21/2022 14:52:26 06/11/2024 [id number] athlete's foot: care instructions oajao Not available 06/11/2024 14:56:55 high blood pressure: care instructions oajao Not available 06/11/2024 14:53:53 learning about high blood pressure oajao Not available 06/11/2024 14:53:54 heart failure: care instructions oajao Not available 06/11/2024 14:53:54 learning about heart failure oajao Not available 06/11/2024 14:53:53 dry skin: care instructions oajao Not available 06/11/2024 14:56:55 Labs Cardiology D/C summary from [facility] Colonoscopy report from [facility] Podiatry Xrays Stop smoking Do not smoke while using Nicotine replacement PT for PMD Follow up in 4 weeks (30 minutes) oajao Not available 06/11/2024 19:41:47 Very detailed initial visit oajao Not available 06/11/2024 19:42:04 Reason for Referral Supervisor Clam Bed Referral for Chronic hepatitis C Referring Physician: General Christiana Sparks, Encounter Date: 03/15/2022 Orthopedic Surgeon Referral for Pain of right knee joint Referring Physician: [facility], Encounter Date: 03/15/2022 Physical Therapist Referral for Pain of right knee joint Referring Physician: [facility], Encounter Date: 03/15/2022 Referring Physician: General Christiana Tripathi, Encounter Date: 05/20/2022 Palliative Medicine Referral for Congestive heart failure palliative Referring Physician: General Christiana Sparks, Encounter Date: 05/20/2022 Coremaking Machine Operator Referral for Co ngestive heart failure Referring Physician: Tomeka Montelongo, Wrap Yarn Sorter, Encounter Date: 05/20/2022 Physical Therapist Referral for Impaired mobility [facility] Referring Physician: Dominick Kennedy, Internal Medicine, Encounter Date: 06/11/2024 Coremaking Machine Operator Referral for Co ngestive heart failure CHF Referring Physician: Dominick Kennedy, Internal Medicine, Encounter Date: 06/11/2024 Creative Designer Referral for C hronic obstructive pulmonary disease COPD Referring Physician: Dominick Kennedy, Internal Medicine, Encounter Date: 06/11/2024 Range Master Referral for Kaylan a pedis Onychomycosis, Tinea [...] RANGE : 275.0 -301. 0 Not Available [facility] [address] [place], [address], 03/16/2022 22:07:03 03/15/20 22 03/16/2022 COMP. METAB OLIC PANEL (14) BUN 15 mg/dL 8-26 Not Available [facility] [address] [place], [address], 03/16/2022 22:07:03 03/15/20 22 03/16/2022 COMP. METAB OLIC PANEL (14) creatinine 0.81 mg/dL 0.50-1 .40 Not Available [facility] [address] [place], [address], 03/16/2022 22:07:03 03/15/20 22 03/16/2022 COMP. METAB OLIC PANEL (14) eGFR 99 mL/mi n/1.7 3 >=60 Not Available [facility] [address] [place], [address], 03/16/2022 22:07:03 03/15/20 22 03/16/2022 COMP. METAB OLIC PANEL (14) BUN/creatini ne ratio 18.3 Not Available [facility] [address] [place], [address], 03/16/2022 22:07:03 03/15/20 22 03/16/2022 COMP. METAB OLIC PANEL (14) sodium 134.0 mmol/ L 136.0- 144.0 below low normal Not Available [facility] [address] [place], [address], 03/16/2022 22:07:03 03/15/20 22 03/16/2022 COMP. METAB OLIC PANEL (14) potassium 4.6 mmol/ L 3.5-5. 3 Not Available [facility] [address] [place], [address], 03/16/2022 22:07:03 03/15/20 22 03/16/2022 COMP. METAB OLIC PANEL (14) chloride 94 mmol/ l 101-11 1 below low normal Not Available [facility] [address] [place], [address], 03/16/2022 22:07:03 03/15/20 22 03/16/2022 COMP. METAB OLIC PANEL (14) carbon dioxide, total 25.7 mmol/ L 21.0-3 2.0 Not Available [facility] [address] [place], [address], 03/16/2022 22:07:03 03/15/20 22 03/16/2022 COMP. METAB OLIC PANEL (14) calcium 10.0 mg/dL 8.2-10 .0 Not Available [facility] [address] [place] [address], [address], 03/16/2022 22:07:03 03/15/20 22 03/16/2022 COMP. METAB OLIC PANEL (14) protein, total 9.6 g/dL 6.7-8. 2 above high normal Not Available [facility] [address] [place], [address], 03/16/2022 22:07:03 03/15/20 22 03/16/2022 COMP. METAB OLIC PANEL (14) albumin 3.7 g/dL 3.5-5. 5 Not Available [facility] [address] [place], [address], 03/16/2022 22:07:03 03/15/20 22 03/16/2022 COMP. METAB OLIC PANEL (14) globulin, total 5.9 g/dL 1.5-4. 5 above high normal Not Available [facility] [address] [place], [address], 03/16/2022 22:07:03 03/15/20 22 03/16/2022 COMP. METAB OLIC PANEL (14) A/G ratio 0.6 Not Available [facility] Department [address] [place], [address], 03/16/2022 22:07:03 03/15/20 22 03/16/2022 COMP. METAB OLIC PANEL (14) bilirubin, total 0.6 mg/dL 0.0-1. 2 Not Available [facility] [address] [place], [address], 03/16/2022 22:07:03 03/15/20 22 03/16/2022 COMP. METAB OLIC PANEL (14) alkaline phosphatase 458.7 IU/L 42.0-1 21.0 above high normal Not Available [facility] [address] [place], [address], 03/16/2022 22:07:03 03/15/20 22 03/16/2022 COMP. METAB OLIC PANEL (14) AST (SGOT) 34.9 U/L 10.0-4 2.0 Not Available [facility] [address] [place], [address], 03/16/2022 22:07:03 03/15/20 22 03/16/2022 COMP. METAB OLIC PANEL (14) ALT (SGPT) 31.6 U/L 10.0-6 0.0 Not Available [facility] [address] [place], [address], 03/16/2022 22:07:03 03/15/20 22 03/16/2022 CBC WITH DIFFE RENTI AL/PL ATELE T WBC 10.2 K/uL 3.4-10 .8 Not Available [facility] [address] [place], [address], 03/16/2022 22:07:03 03/15/20 22 03/16/2022 CBC WITH DIFFE RENTI AL/PL ATELE T RBC 4.8 M/uL 4.5-6. 3 Not Available [facility] [address] [place], [address], 03/16/2022 22:07:03 03/15/20 22 03/16/2022 CBC WITH DIFFE RENTI AL/PL ATELE T hemoglobin 14.1 g/dL 13.5-1 7.5 Not Available [facility] [address] [place], [address], 03/16/2022 22:07:03 03/15/20 22 03/16/2022 CBC WITH DIFFE RENTI AL/PL ATELE T hematocrit 44.4 % 40.0-5 2.0 Not Available [facility] [address] [place], [address], 03/16/2022 22:07:03 03/15/20 22 03/16/2022 CBC WITH DIFFE RENTI AL/PL ATELE T MCV 93 fL 80-95 Not Available [facility] [address] [place], [address], 03/16/2022 22:07:03 03/15/20 22 03/16/2022 CBC WITH DIFFE RENTI AL/PL ATELE T MCH 30 pg 27-32 Not Available [facility] [address] [place], [address], 03/16/2022 22:07:03 03/15/20 22 03/16/2022 CBC WITH DIFFE RENTI AL/PL ATELE T MCHC 32 g/dL 32-36 Not Available [facility] [address] [place], [address], 03/16/2022 22:07:03 03/15/20 22 03/16/2022 CBC WITH DIFFE RENTI AL/PL ATELE T RDW 12.8 % 11.5-1 4.5 Not Available [facility] [address] [place], [address], 03/16/2022 22:07:03 03/15/20 22 03/16/2022 CBC WITH DIFFE RENTI AL/PL ATELE T platelets 317 K/uL 155-37 9 MPV 10.6 FL 8.9-1 2.7 N Not Available [facility] [address] [place], [address], 03/16/2022 22:07:03 03/15/20 22 03/16/2022 CBC WITH DIFFE RENTI AL/PL ATELE T neutrophils 74.2 % 40.0-7 4.0 above high normal Not Available [facility] [address] [place], [address], 03/16/2022 22:07:03 03/15/20 22 03/16/2022 CBC WITH DIFFE RENTI AL/PL ATELE T lymphs 12.8 % 14.0-4 6.0 below low normal Not Available [facility] [address] [place], [address], 03/16/2022 22:07:03 03/15/20 22 03/16/2022 CBC WITH DIFFE RENTI AL/PL ATELE T monocytes 8.2 % 4.0-12 .0 Not Available [facility] [address] [place], [address], 03/16/2022 22:07:03 03/15/20 22 03/16/2022 CBC WITH DIFFE RENTI AL/PL ATELE T eos 3 % 0-5 Not Available [facility] [address] [place], [address], 03/16/2022 22:07:03 03/15/20 22 03/16/2022 CBC WITH DIFFE RENTI AL/PL ATELE T basos 0.7 % 0.0-1. 0 Not Available [facility] [address] [place], [address], 03/16/2022 22:07:03 03/15/20 22 03/16/2022 CBC WITH DIFFE RENTI AL/PL ATELE T neutrophils (absolute) 7.6 K/uL 1.4-7. 0 above high normal Not Available [facility] [address] [place], [address], 03/16/2022 22:07:03 03/15/20 22 03/16/2022 CBC WITH DIFFE RENTI AL/PL ATELE T lymphs (absolute) 1.3 K/uL 0.7-3. 1 Not Available [facility] [address] [place], [address], 03/16/2022 22:07:03 03/15/20 22 03/16/2022 CBC WITH DIFFE RENTI AL/PL ATELE T monocytes(ab solute) 0.8 K/uL 0.1-0. 9 Not Available [facility] [address] [place], [address], 03/16/2022 22:07:03 03/15/20 22 03/16/2022 CBC WITH DIFFE RENTI AL/PL ATELE T eos (absolute) 0.3 K/uL 0.0-0. 4 Not Available [facility] [address] [place], [address], 03/16/2022 22:07:03 03/15/20 22 03/16/2022 CBC WITH DIFFE RENTI AL/PL ATELE T baso (absolute) 0.1 K/uL 0.0-0. 3 Not Available [facility] [address] [place], [address], 03/16/2022 22:07:03 03/15/20 22 03/16/2022 CBC WITH DIFFE RENTI AL/PL ATELE T immature granulocytes 1.5 % Not Available [facility] Department [address] [place], [address], 03/16/2022 22:07:03 03/15/20 22 03/16/2022 CBC WITH DIFFE RENTI AL/PL ATELE T immature grans (abs) 0.2 K/uL Not Available [facility] [address] [place], [address], 03/16/2022 22:07:03 03/15/20 22 03/16/2022 CBC WITH DIFFE RENTI AL/PL ATELE T NRBC 0 % Not Available [facility] [address] [place], [address], 03/16/2022 22:07:03 03/15/20 22 03/16/2022 HCV RNA BY PCR, QN RFX STEPHANIE test information: Commen t The quant itati ve range of this assay is 15 IU/mL to 100 angelo on IU/mL . Not Available [facility] ([facility]) [address] [facility], [place], [address], 03/20/2022 22:06:53 03/15/20 22 03/19/2022 HCV RNA BY PCR, QN RFX STEPHANIE hepatitis C quantitation 145147 0 IU/mL Not Available [facility] ([facility]) [address] [facility], [place], [address], 03/20/2022 22:06:53 03/15/20 22 03/19/2022 HCV RNA BY PCR, QN RFX STEPHANIE HCV log10 6.954 log10 _IU/m L Not Available [facility] ([facility]) [address] [facility], [place], [address], 03/20/2022 22:06:53 03/15/20 22 03/19/2022 HCV RNA BY PCR, QN RFX STEPHANIE HCV genotype Commen t To be perfo rmed on this speci men. Not Available [facility] ([facility]) [address] [facility], [place], [address], 03/20/2022 22:06:53 03/15/20 22 03/17/2022 HIV AB/P2 4 AG WITH REFLE X HIV Ab/P24 Ag screen Non Reacti ve nonrea ctive HIV Negat juan HIV-1 /HIV- 2 antib odies and HIV-1 p24 antig en were NOT detec cole. There is no labor atory evide nce of HIV infec tion. Not Available [facility] ([facility]) [address] [facility], [place], [address], 03/20/2022 22:06:54 03/15/20 22 03/19/2022 HEPAT ITIS [...] as inves tigat ional or for resea [facility]. Not Available [facility] ([facility]) [address] [facility], [place], [address], 03/20/2022 22:06:54 03/15/20 22 03/20/2022 HEPAT ITIS C GENOT YPE hepatitis C genotype 1b Not Available [facility] ([facility]) [address] [facility], [place], [address], 03/20/2022 22:06:54 05/20/19 23 05/20/2022 COMP. METAB OLIC PANEL (14) glucose 104 mg/dL 65-99 above high normal ANION GP 22.0 mmol/ L N OSMOL 277.0 mOsM/ L N REFER ENCE RANGE : 275.0 -301. 0 Not Available [facility] [address] [place] [address], [address], 05/20/2022 22:07:38 05/20/19 23 05/20/2022 COMP. METAB OLIC PANEL (14) BUN 11 mg/dL 8-26 Not Available [facility] [address] [place], [address], 05/20/2022 22:07:38 05/20/19 23 05/20/2022 COMP. METAB OLIC PANEL (14) creatinine 0.71 mg/dL 0.50-1 .40 Not Available [facility] [address] [place], [address], 05/20/2022 22:07:38 05/20/19 23 05/20/2022 COMP. METAB OLIC PANEL (14) eGFR 102 mL/mi n/1.7 3 >=60 Not Available [facility] [address] [place], [address], 05/20/2022 22:07:38 05/20/19 23 05/20/2022 COMP. METAB OLIC PANEL (14) BUN/creatini ne ratio 16.1 Not Available [facility] Department [address] [place], [address], 05/20/2022 22:07:38 05/20/19 23 05/20/2022 COMP. METAB OLIC PANEL (14) sodium 138.6 mmol/ L 136.0- 144.0 Not Available [facility] [address] [place], [address], 05/20/2022 22:07:38 05/20/19 23 05/20/2022 COMP. METAB OLIC PANEL (14) potassium 4.0 mmol/ L 3.5-5. 3 Not Available [facility] [address] [place], [address], 05/20/2022 22:07:38 05/20/19 23 05/20/2022 COMP. METAB OLIC PANEL (14) chloride 100 mmol/ l 101-11 1 below low normal Not Available [facility] [address] [place] [address], [address], 05/20/2022 22:07:38 05/20/19 23 05/20/2022 COMP. METAB OLIC PANEL (14) carbon dioxide, total 21.4 mmol/ L 21.0-3 2.0 Not Available [facility] [address] [place], [address], 05/20/2022 22:07:38 05/20/19 23 05/20/2022 COMP. METAB OLIC PANEL (14) calcium 9.6 mg/dL 8.2-10 .0 Not Available [facility] [address] [place], [address], 05/20/2022 22:07:38 05/20/19 23 05/20/2022 COMP. METAB OLIC PANEL (14) protein, total 8.7 g/dL 6.7-8. 2 above high normal Not Available [facility] [address] [place] [address], [address], 05/20/2022 22:07:38 05/20/19 23 05/20/2022 COMP. METAB OLIC PANEL (14) albumin 3.7 g/dL 3.5-5. 5 Not Available [facility] [address] [place], [address], 05/20/2022 22:07:38 05/20/19 23 05/20/2022 COMP. METAB OLIC PANEL (14) globulin, total 5.0 g/dL 1.5-4. 5 above high normal Not Available [facility] [address] [place] [address], [address], 05/20/2022 22:07:38 05/20/19 23 05/20/2022 COMP. METAB OLIC PANEL (14) A/G ratio 0.7 Not Available [facility] [address] [place], [address], 05/20/2022 22:07:38 05/20/19 23 05/20/2022 COMP. METAB OLIC PANEL (14) bilirubin, total 0.4 mg/dL 0.0-1. 2 Not Available [facility] [address] [place], [address], 05/20/2022 22:07:38 05/20/19 23 05/20/2022 COMP. METAB OLIC PANEL (14) alkaline phosphatase 309.4 IU/L 42.0-1 21.0 above high normal Not Available [facility] [address] [place], [address], 05/20/2022 22:07:38 05/20/19 23 05/20/2022 COMP. METAB OLIC PANEL (14) AST (SGOT) 41.8 U/L 10.0-4 2.0 Not Available [facility] [address] [place], [address], 05/20/2022 22:07:38 05/20/19 23 05/20/2022 COMP. METAB OLIC PANEL (14) ALT (SGPT) 41.3 U/L 10.0-6 0.0 Not Available [facility] [address] [place], [address], 05/20/2022 22:07:38 05/20/19 23 05/20/2022 CBC WITH DIFFE RENTI AL/PL ATELE T WBC 7.5 K/uL 3.4-10 .8 Not Available [facility] [address] [place], [address], 05/20/2022 22:07:39 05/20/19 23 05/20/2022 CBC WITH DIFFE RENTI AL/PL ATELE T RBC 4.7 M/uL 4.5-6. 3 Not Available [facility] [address] [place], [address], 05/20/2022 22:07:39 05/20/19 23 05/20/2022 CBC WITH DIFFE RENTI AL/PL ATELE T hemoglobin 13.6 g/dL 13.5-1 7.5 Not Available [facility] [address] [place], [address], 05/20/2022 22:07:39 05/20/19 23 05/20/2022 CBC WITH DIFFE RENTI AL/PL ATELE T hematocrit 41.9 % 40.0-5 2.0 Not Available [facility] [address] [place], [address], 05/20/2022 22:07:39 05/20/19 23 05/20/2022 CBC WITH DIFFE RENTI AL/PL ATELE T MCV 90 fL 80-95 Not Available [facility] [address] [place], [address], 05/20/2022 22:07:39 05/20/19 23 05/20/2022 CBC WITH DIFFE RENTI AL/PL ATELE T MCH 29 pg 27-32 Not Available [facility] [address] [place], [address], 05/20/2022 22:07:39 05/20/19 23 05/20/2022 CBC WITH DIFFE RENTI AL/PL ATELE T MCHC 33 g/dL 32-36 Not Available [facility] [address] [place], [address], 05/20/2022 22:07:39 05/20/19 23 05/20/2022 CBC WITH DIFFE RENTI AL/PL ATELE T RDW 14.0 % 11.5-1 4.5 Not Available [facility] [address] [place], [address], 05/20/2022 22:07:39 05/20/19 23 05/20/2022 CBC WITH DIFFE RENTI AL/PL ATELE T platelets 318 K/uL 155-37 9 MPV 11.0 FL 8.9-1 2.7 N Not Available [facility] [address] [place], [address], 05/20/2022 22:07:39 05/20/19 23 05/20/2022 CBC WITH DIFFE RENTI AL/PL ATELE T neutrophils 63.6 % 40.0-7 4.0 Not Available [facility] [address] [place], [address], 05/20/2022 22:07:39 05/20/19 23 05/20/2022 CBC WITH DIFFE RENTI AL/PL ATELE T lymphs 19.0 % 14.0-4 6.0 Not Available [facility] [address] [place], [address], 05/20/2022 22:07:39 05/20/19 23 05/20/2022 CBC WITH DIFFE RENTI AL/PL ATELE T monocytes 7.6 % 4.0-12 .0 Not Available [facility] [address] [place], [address], 05/20/2022 22:07:39 05/20/19 23 05/20/2022 CBC WITH DIFFE RENTI AL/PL ATELE T eos 7 % 0-5 above high normal Not Available [facility] [address] [place], [address], 05/20/2022 22:07:39 05/20/19 23 05/20/2022 CBC WITH DIFFE RENTI AL/PL ATELE T basos 0.8 % 0.0-1. 0 Not Available [facility] [address] [place], [address], 05/20/2022 22:07:39 05/20/19 23 05/20/2022 CBC WITH DIFFE RENTI AL/PL ATELE T neutrophils (absolute) 4.8 K/uL 1.4-7. 0 Not Available [facility] [address] [place], [address], 05/20/2022 22:07:39 05/20/19 23 05/20/2022 CBC WITH DIFFE RENTI AL/PL ATELE T lymphs (absolute) 1.4 K/uL 0.7-3. 1 Not Available [facility] [address] [place], [address], 05/20/2022 22:07:39 05/20/19 23 05/20/2022 CBC WITH DIFFE RENTI AL/PL ATELE T monocytes(ab solute) 0.6 K/uL 0.1-0. 9 Not Available [facility] [address] [place], [address], 05/20/2022 22:07:39 05/20/19 23 05/20/2022 CBC WITH DIFFE RENTI AL/PL ATELE T eos (absolute) 0.5 K/uL 0.0-0. 4 above high normal Not Available [facility] [address] [place], [address], 05/20/2022 22:07:39 05/20/19 23 05/20/2022 CBC WITH DIFFE RENTI AL/PL ATELE T baso (absolute) 0.1 K/uL 0.0-0. 3 Not Available [facility] [address] [place], [address], 05/20/2022 22:07:39 05/20/19 23 05/20/2022 CBC WITH DIFFE RENTI AL/PL ATELE T immature granulocytes 1.9 % Not Available [facility] [address] [place], [address], 05/20/2022 22:07:39 05/20/19 23 05/20/2022 CBC WITH DIFFE RENTI AL/PL ATELE T immature grans (abs) 0.1 K/uL Not Available [facility] [address] [place], [address], 05/20/2022 22:07:39 05/20/19 23 05/20/2022 CBC WITH DIFFE RENTI AL/PL ATELE T NRBC 0 % Not Available [facility] [address] [place], [address], 05/20/2022 22:07:39 05/20/19 23 05/21/2022 ALBUM IN/CR EATIN INE RATIO ,URIN E creatinine, urine 179.4 mg/dL notest ab. Not Available [facility] ([facility]) [address] [place], [address], 05/21/2022 11:12:47 05/20/19 23 05/21/2022 ALBUM IN/CR EATIN INE RATIO ,URIN E albumin, urine 11.7 ug/mL notest ab. Not Available [facility] ([facility]) [address] [facility], [place], [address], 05/21/2022 11:12:47 05/20/19 23 05/21/2022 ALBUM IN/CR EATIN INE RATIO ,URIN E alb/creat ratio 7 mg/g_ creat 0-29 Brenda l: 0 - 29 Moder ately incre ased: 30 - 300 Sever kamran incre ased: >300 Not Available [facility] ([facility]) [address] [place], [address], 05/21/2022 11:12:47 05/20/19 23 05/20/2022 HbA1c (hemo globi n A1c), blood HbA1c 5.7% Not Available In-Office Order Internal Use Only DO Not Attach Compendium DO Not Attach Compendium, Do Not Delete/merge, [id number] 05/20/2022 15:45:07 09/22/19 23 09/22/2022 ALBUM IN/CR EATIN INE RATIO ,URIN E creatinine, urine 194.2 mg/dL notest ab. Not Available [facility] ([facility]) [address] [place], [address], 09/22/2022 21:08:04 09/22/19 23 09/22/2022 ALBUM IN/CR EATIN INE RATIO ,URIN E albumin, urine 17.1 ug/mL notest ab. Not Available [facility] ([facility]) [address] [place], [address], 09/22/2022 21:08:04 09/22/19 23 09/22/2022 ALBUM IN/CR EATIN INE RATIO ,URIN E alb/creat ratio 9 mg/g_ creat 0-29 Brenda l: 0 - 29 Moder ately incre ased: 30 - 300 Sever kamran incre ased: >300 Not Available [facility] ([facility]) [address] [place], [address], 09/22/2022 21:08:04 09/22/19 23 09/22/2022 COMP. METAB OLIC PANEL (14) glucose 108 mg/dL 70-99 above high normal Not Available [facility] ([facility]) [address] [place], [address], 09/22/2022 21:08:05 09/22/19 23 09/22/2022 COMP. METAB OLIC PANEL (14) BUN 11 mg/dL 8-27 Not Available [facility] ([facility]) [address] [facility] [place], [address], 09/22/2022 21:08:05 09/22/19 23 09/22/2022 COMP. METAB OLIC PANEL (14) creatinine 0.70 mg/dL 0.76-1 .27 below low normal Not Available [facility] ([facility]) [address] [facility] [place], [address], 09/22/2022 21:08:05 09/22/19 23 09/22/2022 COMP. METAB OLIC PANEL (14) eGFR 103 mL/mi n/1.7 3 >59 Not Available [facility] ([facility]) [address] [facility] [place], [address], 09/22/2022 21:08:05 09/22/19 23 09/22/2022 COMP. METAB OLIC PANEL (14) BUN/creatini ne ratio 16 10-24 Not Available [facility] ([facility]) [address] [facility] [place], [address], 09/22/2022 21:08:05 09/22/19 23 09/22/2022 COMP. METAB OLIC PANEL (14) sodium 138 mmol/ L 134-14 4 Not Available [facility] ([facility]) [address] [facility] [place], [address], 09/22/2022 21:08:05 09/22/19 23 09/22/2022 COMP. METAB OLIC PANEL (14) potassium 4.4 mmol/ L 3.5-5. 2 Not Available [facility] ([facility]) [address] [facility] [place], [address], 09/22/2022 21:08:05 09/22/19 23 09/22/2022 COMP. METAB OLIC PANEL (14) chloride 95 mmol/ L 96-106 below low normal Not Available [facility] ([facility]) [address] [facility] [place], [address], 09/22/2022 21:08:05 09/22/19 23 09/22/2022 COMP. METAB OLIC PANEL (14) carbon dioxide, total 28 mmol/ L 20-29 Not Available [facility] ([facility]) [address] [facility] [place], [address], 09/22/2022 21:08:05 09/22/19 23 09/22/2022 COMP. METAB OLIC PANEL (14) calcium 9.1 mg/dL 8.6-10 .2 Not Available [facility] ([facility]) [address] [facility] [place], [address], 09/22/2022 21:08:05 09/22/19 23 09/22/2022 COMP. METAB OLIC PANEL (14) protein, total 8.5 g/dL 6.0-8. 5 Not Available [facility] ([facility]) [address] [facility] [place], [address], 09/22/2022 21:08:05 09/22/19 23 09/22/2022 COMP. METAB OLIC PANEL (14) albumin 3.6 g/dL 3.8-4. 8 below low normal Not Available [facility] ([facility]) [address] [facility] [place], [address], 09/22/2022 21:08:05 09/22/19 23 09/22/2022 COMP. METAB OLIC PANEL (14) globulin, total 4.9 g/dL 1.5-4. 5 above high normal Not Available [facility] ([facility]) [address] [facility] [place], [address], 09/22/2022 21:08:05 09/22/19 23 09/22/2022 COMP. METAB OLIC PANEL (14) A/G ratio 0.7 1.2-2. 2 below low normal Not Available [facility] ([facility]) [address] [facility] [place], [address], 09/22/2022 21:08:05 09/22/19 23 09/22/2022 COMP. METAB OLIC PANEL (14) bilirubin, total 1.0 mg/dL 0.0-1. 2 Not Available [facility] ([facility]) [address] [facility] [place], [address], 09/22/2022 21:08:05 09/22/19 23 09/22/2022 COMP. METAB OLIC PANEL (14) alkaline phosphatase 221 IU/L 44-121 above high normal Not Available [facility] ([facility]) [address] [facility], [place], [address], 09/22/2022 21:08:05 09/22/19 23 09/22/2022 COMP. METAB OLIC PANEL (14) AST (SGOT) 13 IU/L 0-40 Not Available [facility] ([facility]) [address] [facility] [place], [address], 09/22/2022 21:08:05 09/22/19 23 09/22/2022 COMP. METAB OLIC PANEL (14) ALT (SGPT) 6 IU/L 0-44 Not Available [facility] ([facility]) [address] [facility] [place], [address], 09/22/2022 21:08:05 09/22/19 23 09/22/2022 CBC WITH DIFFE RENTI AL/PL ATELE T WBC 6.6 x10e3 /uL 3.4-10 .8 Not Available [facility] ([facility]) [address] [facility] [place], [address], 09/22/2022 21:08:06 09/22/19 23 09/22/2022 CBC WITH DIFFE RENTI AL/PL ATELE T RBC 5.12 x10e6 /uL 4.14-5 .80 Not Available [facility] ([facility]) [address] [place], [address], 09/22/2022 21:08:06 09/22/19 23 09/22/2022 CBC WITH DIFFE RENTI AL/PL ATELE T hemoglobin 14.2 g/dL 13.0-1 7.7 Not Available [facility] ([facility]) [address] [place], [address], 09/22/2022 21:08:06 09/22/19 23 09/22/2022 CBC WITH DIFFE RENTI AL/PL ATELE T hematocrit 46.5 % 37.5-5 1.0 Not Available [facility] ([facility]) [address] [facility], [place], [address], 09/22/2022 21:08:06 09/22/19 23 09/22/2022 CBC WITH DIFFE RENTI AL/PL ATELE T MCV 91 fL 79-97 Not Available [facility] ([facility]) [address] [place], [address], 09/22/2022 21:08:06 09/22/19 23 09/22/2022 CBC WITH DIFFE RENTI AL/PL ATELE T MCH 27.7 pg 26.6-3 3.0 Not Available [facility] ([facility]) [address] [place], [address], 09/22/2022 21:08:06 09/22/19 23 09/22/2022 CBC WITH DIFFE RENTI AL/PL ATELE T MCHC 30.5 g/dL 31.5-3 5.7 below low normal Not Available [facility] ([facility]) [address] [place], [address], 09/22/2022 21:08:06 09/22/19 23 09/22/2022 CBC WITH DIFFE RENTI AL/PL ATELE T RDW 13.3 % 11.6-1 5.4 Not Available [facility] ([facility]) [address] [facility], [place], [address], 09/22/2022 21:08:06 09/22/19 23 09/22/2022 CBC WITH DIFFE RENTI AL/PL ATELE T platelets 283 x10e3 /uL 150-45 0 Not Available [facility] ([facility]) [address] [facility], [place], [address], 09/22/2022 21:08:06 09/22/19 23 09/22/2022 CBC WITH DIFFE RENTI AL/PL ATELE T neutrophils 64 % notest ab. Not Available [facility] ([facility]) [address] [facility], [place], [address], 09/22/2022 21:08:06 09/22/19 23 09/22/2022 CBC WITH DIFFE RENTI AL/PL ATELE T lymphs 19 % notest ab. Not Available [facility] ([facility]) [address] [facility], [place], [address], 09/22/2022 21:08:06 09/22/19 23 09/22/2022 CBC WITH DIFFE RENTI AL/PL ATELE T monocytes 9 % notest ab. Not Available [facility] ([facility]) [address] [facility], [place], [address], 09/22/2022 21:08:06 09/22/19 23 09/22/2022 CBC WITH DIFFE RENTI AL/PL ATELE T eos 6 % notest ab. Not Available [facility] ([facility]) [address] [facility], [place], [address], 09/22/2022 21:08:06 09/22/19 23 09/22/2022 CBC WITH DIFFE RENTI AL/PL ATELE T basos 1 % notest ab. Not Available [facility] ([facility]) [address] [facility], [place], [address], 09/22/2022 21:08:06 09/22/19 23 09/22/2022 CBC WITH DIFFE RENTI AL/PL ATELE T neutrophils (absolute) 4.2 x10e3 /uL 1.4-7. 0 Not Available [facility] ([facility]) [address] [facility], [place], [address], 09/22/2022 21:08:06 09/22/19 23 09/22/2022 CBC WITH DIFFE RENTI AL/PL ATELE T lymphs (absolute) 1.3 x10e3 /uL 0.7-3. 1 Not Available [facility] ([facility]) [address] [facility], [place], [address], 09/22/2022 21:08:06 09/22/19 23 09/22/2022 CBC WITH DIFFE RENTI AL/PL ATELE T monocytes(ab solute) 0.6 x10e3 /uL 0.1-0. 9 Not Available [facility] ([facility]) [address] [facility], [place], [address], 09/22/2022 21:08:06 09/22/19 23 09/22/2022 CBC WITH DIFFE RENTI AL/PL ATELE T eos (absolute) 0.4 x10e3 /uL 0.0-0. 4 Not Available [facility] ([facility]) [address] [place], [address], 09/22/2022 21:08:06 09/22/19 23 09/22/2022 CBC WITH DIFFE RENTI AL/PL ATELE T baso (absolute) 0.1 x10e3 /uL 0.0-0. 2 Not Available [facility] ([facility]) [address] [place], [address], 09/22/2022 21:08:06 09/22/19 23 09/22/2022 CBC WITH DIFFE RENTI AL/PL ATELE T immature granulocytes 1 % notest ab. Not Available [facility] ([facility]) [address] [place], [address], 09/22/2022 21:08:06 09/22/19 23 09/22/2022 CBC WITH DIFFE RENTI AL/PL ATELE T immature grans (abs) 0.1 x10e3 /uL 0.0-0. 1 Not Available [facility] ([facility]) [address] [place], [address], 09/22/2022 21:08:06 09/22/19 23 09/22/2022 HEMOG LOBIN A1C hemoglobin A1C 6.1 % 4.8-5. 6 above high normal Predi abete s: 5.7 - 6.4 Diabe lizzy: >6.4 Glyce jay jay contr ol for adult s with diabe lizzy: <7.0 Not Available [facility] ([facility]) [address] [place], [address], 09/22/2022 21:08:05 06/11/19 25 06/12/2024 LIPID PANEL cholesterol, total 199 mg/dL 100-19 9 Not Available [facility] ([facility]) [address] [place], [address], 06/12/2024 08:24:19 06/11/19 25 06/12/2024 LIPID PANEL triglyceride s 90 mg/dL 0-149 Not Available [facility] ([facility]) [address] [place], [address], 06/12/2024 08:24:19 06/11/19 25 06/12/2024 LIPID PANEL HDL cholesterol 53 mg/dL >39 Not Available [facility] ([facility] [address] [place], [address], 06/12/2024 08:24:19 06/11/19 25 06/12/2024 LIPID PANEL VLDL cholesterol samuel 16 mg/dL 5-40 Not Available [facility] ([facility]) [address] [place], [address], 06/12/2024 08:24:19 06/11/19 25 06/12/2024 LIPID PANEL LDL chol calc ([facility]) 130 mg/dL 0-99 above high normal Not Available [facility] ([facility]) [address] [place], [address], 06/12/2024 08:24:19 06/11/19 25 06/12/2024 COMP. METAB OLIC PANEL (14) glucose 93 mg/dL 70-99 Not Available [facility] ([facility]) [address] [place], [address], 06/12/2024 08:24:21 06/11/19 25 06/12/2024 COMP. METAB OLIC PANEL (14) BUN 11 mg/dL 8-27 Not Available [facility] ([facility]) [address] [place], [address], 06/12/2024 08:24:21 06/11/19 25 06/12/2024 COMP. METAB OLIC PANEL (14) creatinine 0.62 mg/dL 0.76-1 .27 below low normal Not Available [facility] ([facility]) [address] [place], [address], 06/12/2024 08:24:21 06/11/19 25 06/12/2024 COMP. METAB OLIC PANEL (14) eGFR 105 mL/mi n/1.7 3 >59 Not Available [facility] ([facility]) [address] [place], [address], 06/12/2024 08:24:21 06/11/19 25 06/12/2024 COMP. METAB OLIC PANEL (14) BUN/creatini ne ratio 18 10-24 Not Available [facility] ([facility]) [address] [place], [address], 06/12/2024 08:24:21 06/11/19 25 06/12/2024 COMP. METAB OLIC PANEL (14) sodium 140 mmol/ L 134-14 4 Not Available [facility] ([facility]) [address] [place], [address], 06/12/2024 08:24:21 06/11/19 25 06/12/2024 COMP. METAB OLIC PANEL (14) potassium 4.4 mmol/ L 3.5-5. 2 Not Available [facility] ([facility]) [address] [place], [address], 06/12/2024 08:24:21 06/11/19 25 06/12/2024 COMP. METAB OLIC PANEL (14) chloride 99 mmol/ L 96-106 Not Available [facility] ([facility]) [address] [place], [address], 06/12/2024 08:24:21 06/11/19 25 06/12/2024 COMP. METAB OLIC PANEL (14) carbon dioxide, total 26 mmol/ L 20-29 Not Available [facility] ([facility]) [address] [place], [address], 06/12/2024 08:24:21 06/11/19 25 06/12/2024 COMP. METAB OLIC PANEL (14) calcium 9.3 mg/dL 8.6-10 .2 Not Available [facility] ([facility]) [address] [place], [address], 06/12/2024 08:24:21 06/11/19 25 06/12/2024 COMP. METAB OLIC PANEL (14) protein, total 7.7 g/dL 6.0-8. 5 Not Available [facility] ([facility]) [address] [place], [address], 06/12/2024 08:24:21 06/11/19 25 06/12/2024 COMP. METAB OLIC PANEL (14) albumin 3.8 g/dL 3.9-4. 9 below low normal Not Available [facility] ([facility]) [address] [facility] [place], [address], 06/12/2024 08:24:21 06/11/19 25 06/12/2024 COMP. METAB OLIC PANEL (14) globulin, total 3.9 g/dL 1.5-4. 5 Not Available [facility] ([facility]) [address] [facility] [place], [address], 06/12/2024 08:24:21 06/11/19 25 06/12/2024 COMP. METAB OLIC PANEL (14) bilirubin, total 0.3 mg/dL 0.0-1. 2 Not Available [facility] ([facility]) [address] [place], [address], 06/12/2024 08:24:21 06/11/19 25 06/12/2024 COMP. METAB OLIC PANEL (14) alkaline phosphatase 113 IU/L 44-121 Not Available [facility] ([facility]) [address] [facility] [place], [address], 06/12/2024 08:24:21 06/11/19 25 06/12/2024 COMP. METAB OLIC PANEL (14) AST (SGOT) 15 IU/L 0-40 Not Available [facility] ([facility]) [address] [facility] [place], [address], 06/12/2024 08:24:21 06/11/19 25 06/12/2024 COMP. METAB OLIC PANEL (14) ALT (SGPT) 9 IU/L 0-44 Not Available [facility] ([facility]) [address] [facility] [place], [address], 06/12/2024 08:24:21 06/11/19 25 06/12/2024 URINA LYSIS , ROUTI NE specific gravity 1.013 1.005- 1.030 Not Available [facility] ([facility]) [address] [place], [address], 06/12/2024 08:24:22 06/11/1906/12/2024 URINA LYSIS , ROUTI NE pH 6.0 5.0-7. 5 Not Available [facility] ([facility]) [address] [place], [address], 06/12/2024 08:24:22 06/11/19 25 06/12/2024 URINA LYSIS , ROUTI NE urine-color YELLOW yellow Not Available [facility] ([facility]) [address] [place], [address], 06/12/2024 08:24:22 06/11/1906/12/2024 URINA LYSIS , ROUTI NE appearance CLEAR clear Not Available [facility] ([facility]) [address] [place], [address], 06/12/2024 08:24:22 06/11/19 25 06/12/2024 URINA LYSIS , ROUTI NE WBC esterase NEGATI VE negati ve Not Available [facility] ([facility]) [address] [place], [address], 06/12/2024 08:24:22 06/11/19 25 06/12/2024 URINA LYSIS , ROUTI NE protein NEGATI VE negati ve/tra ce Not Available [facility] ([facility]) [address] [place], [address], 06/12/2024 08:24:22 06/11/1906/12/2024 URINA LYSIS , ROUTI NE glucose NEGATI VE negati ve Not Available [facility] ([facility]) [address] [place], [address], 06/12/2024 08:24:22 06/11/19 25 06/12/2024 URINA LYSIS , ROUTI NE ketones NEGATI VE negati ve Not Available [facility] ([facility]) [address] [facility], [place], [address], 06/12/2024 08:24:22 06/11/1906/12/2024 URINA LYSIS , ROUTI NE occult blood NEGATI VE negati ve Not Available [facility] ([facility]) [address] [facility], [place], [address], 06/12/2024 08:24:22 06/11/1906/12/2024 URINA LYSIS , ROUTI NE bilirubin NEGATI VE negati ve Not Available [facility] ([facility]) [address] [facility], [place], [address], 06/12/2024 08:24:22 06/11/1906/12/2024 URINA LYSIS , ROUTI NE urobilinogen ,semi-qn 0.2 mg/dL 0.2-1. 0 Not Available [facility] ([facility]) [address] [facility], [place], [address], 06/12/2024 08:24:22 06/11/1906/12/2024 URINA LYSIS , ROUTI NE nitrite, urine NEGATI VE negati ve Not Available [facility] ([facility]) [address] [place], [address], 06/12/2024 08:24:22 06/11/1906/12/2024 URINA LYSIS , ROUTI NE microscopic examination COMMEN T Micro scopi c not indic ated and not perfo rmed. Not Available [facility] ([facility]) [address] [place], [address], 06/12/2024 08:24:22 06/11/1906/12/2024 CBC WITH DIFFE RENTI AL/PL ATELE T WBC 7.4 x10e3 /uL 3.4-10 .8 Not Available [facility] ([facility]) [address] [place], [address], 06/12/2024 08:24:24 06/11/1906/12/2024 CBC WITH DIFFE RENTI AL/PL ATELE T RBC 4.65 x10e6 /uL 4.14-5 .80 Not Available [facility] ([facility]) [address] [place], [address], 06/12/2024 08:24:24 06/11/19 25 06/12/2024 CBC WITH DIFFE RENTI AL/PL ATELE T hemoglobin 14.3 g/dL 13.0-1 7.7 Not Available [facility] ([facility]) [address] [place], [address], 06/12/2024 08:24:24 06/11/1906/12/2024 CBC WITH DIFFE RENTI AL/PL ATELE T hematocrit 43.2 % 37.5-5 1.0 Not Available [facility] ([facility]) [address] [place], [address], 06/12/2024 08:24:24 06/11/1906/12/2024 CBC WITH DIFFE RENTI AL/PL ATELE T MCV 93 fL 79-97 Not Available [facility] ([facility]) [address] [place], [address], 06/12/2024 08:24:24 06/11/1906/12/2024 CBC WITH DIFFE RENTI AL/PL ATELE T MCH 30.8 pg 26.6-3 3.0 Not Available [facility] ([facility]) [address] [place], [address], 06/12/2024 08:24:24 06/11/19 25 06/12/2024 CBC WITH DIFFE RENTI AL/PL ATELE T MCHC 33.1 g/dL 31.5-3 5.7 Not Available [facility] ([facility]) [address] [place], [address], 06/12/2024 08:24:24 06/11/19 25 06/12/2024 CBC WITH DIFFE RENTI AL/PL ATELE T RDW 12.0 % 11.6-1 5.4 Not Available [facility] ([facility]) [address] [facility], [place], [address], 06/12/2024 08:24:24 06/11/19 25 06/12/2024 CBC WITH DIFFE RENTI AL/PL ATELE T platelets 335 x10e3 /uL 150-45 0 Not Available [facility] ([facility]) [address] [facility], [place], [address], 06/12/2024 08:24:24 06/11/19 25 06/12/2024 CBC WITH DIFFE RENTI AL/PL ATELE T neutrophils 64 % notest ab. Not Available [facility] ([facility]) [address] [facility], [place], [address], 06/12/2024 08:24:24 06/11/19 25 06/12/2024 CBC WITH DIFFE RENTI AL/PL ATELE T lymphs 17 % notest ab. Not Available [facility] ([facility]) [address] [facility], [place], [address], 06/12/2024 08:24:24 06/11/1906/12/2024 CBC WITH DIFFE RENTI AL/PL ATELE T monocytes 10 % notest ab. Not Available [facility] ([facility]) [address] [facility], [place], [address], 06/12/2024 08:24:24 06/11/19 25 06/12/2024 CBC WITH DIFFE RENTI AL/PL ATELE T eos 8 % notest ab. Not Available [facility] ([facility]) [address] [facility], [place], [address], 06/12/2024 08:24:24 06/11/1906/12/2024 CBC WITH DIFFE RENTI AL/PL ATELE T basos 1 % notest ab. Not Available [facility] ([facility]) [address] [place], [address], 06/12/2024 08:24:24 06/11/19 25 06/12/2024 CBC WITH DIFFE RENTI AL/PL ATELE T neutrophils (absolute) 4.7 x10e3 /uL 1.4-7. 0 Not Available [facility] ([facility]) [address] [place], [address], 06/12/2024 08:24:24 06/11/1906/12/2024 CBC WITH DIFFE RENTI AL/PL ATELE T lymphs (absolute) 1.2 x10e3 /uL 0.7-3. 1 Not Available [facility] ([facility]) [address] [place], [address], 06/12/2024 08:24:24 06/11/19 25 06/12/2024 CBC WITH DIFFE RENTI AL/PL ATELE T monocytes(ab solute) 0.8 x10e3 /uL 0.1-0. 9 Not Available [facility] ([facility]) [address] [place], [address], 06/12/2024 08:24:24 06/11/19 25 06/12/2024 CBC WITH DIFFE RENTI AL/PL ATELE T eos (absolute) 0.6 x10e3 /uL 0.0-0. 4 above high normal Not Available [facility] ([facility]) [address] [place], [address], 06/12/2024 08:24:24 06/11/19 25 06/12/2024 CBC WITH DIFFE RENTI AL/PL ATELE T baso (absolute) 0.0 x10e3 /uL 0.0-0. 2 Not Available [facility] ([facility]) [address] [place], [address], 06/12/2024 08:24:24 06/11/1906/12/2024 CBC WITH DIFFE RENTI AL/PL ATELE T immature granulocytes 0 % notest ab. Not Available [facility] ([facility]) [address] [facility], [place], [address], 06/12/2024 08:24:24 06/11/1906/12/2024 CBC WITH DIFFE RENTI AL/PL ATELE T immature grans (abs) 0.0 x10e3 /uL 0.0-0. 1 Not Available [facility] ([facility]) [address] [facility], [place], [address], 06/12/2024 08:24:24 06/11/1906/12/2024 NT-MD OBNP nt-probnp 99 pg/mL 0-376 The follo [...] enden t 300 pg/mL Not Available [facility] ([facility]) [address] [facility], [place], [address], 06/13/2024 06:25:12 06/11/19 25 06/12/2024 DRUG PROFI LE,UR ,9 DRUGS ,BUND amphetamines , urine NEGATI VE NG/mL cutoff =1000 Amphe tamin e test inclu lennox Amphe tamin e and Metha mphet amine . Not Available [facility] ([facility]) [address] [place], [address], 06/13/2024 06:25:13 06/11/19 25 06/12/2024 DRUG PROFI LE,UR ,9 DRUGS ,BUND barbiturate NEGATI VE NG/mL cutoff =300 Not Available [facility] ([facility]) [address] [place], [address], 06/13/2024 06:25:13 06/11/19 25 06/12/2024 DRUG PROFI LE,UR ,9 DRUGS ,BUND benzodiazepi martin NEGATI VE NG/mL cutoff =300 Not Available [facility] ([facility]) [address] [place], [address], 06/13/2024 06:25:13 06/11/19 25 06/12/2024 DRUG PROFI LE,UR ,9 DRUGS ,BUND cannabinoid NEGATI VE NG/mL cutoff =50 Not Available [facility] ([facility]) [address] [place], [address], 06/13/2024 06:25:13 06/11/19 25 06/12/2024 DRUG PROFI LE,UR ,9 DRUGS ,BUND cocaine (metab.) NEGATI VE NG/mL cutoff =300 Not Available [facility] ([facility]) [address] [place], [address], 06/13/2024 06:25:13 06/11/19 25 06/12/2024 DRUG PROFI LE,UR ,9 DRUGS ,BUND opiates NEGATI VE NG/mL cutoff =300 Opiat e test inclu lennox Codei ne and Morph ine only. Not Available [facility] ([facility]) [address] [place], [address], 06/13/2024 06:25:13 06/11/19 25 06/12/2024 DRUG PROFI LE,UR ,9 DRUGS ,BUND phencyclidin e NEGATI VE NG/mL cutoff =25 Not Available [facility] ([facility]) [address] [facility], [place], [address], 06/13/2024 06:25:13 06/11/1906/12/2024 DRUG PROFI LE,UR ,9 DRUGS ,BUND methadone screen, urine NEGATI VE NG/mL cutoff =300 Not Available [facility] ([facility]) [address] [facility], [place], [address], 06/13/2024 06:25:13 06/11/19 25 06/12/2024 DRUG PROFI LE,UR ,9 DRUGS ,BUND propoxyphene , urine NEGATI VE NG/mL cutoff =300 Eff ectiv e July 16, 2024, this test will be disco ntinu ed. Pleas e conta ct your [facility] repre senta tive for sugge sted repla cemen t test optio ns. Not Available [facility] ([facility]) [address] [facility], [place], [address], 06/13/2024 06:25:13 06/11/1906/12/2024 TSH TSH 3.490 uIU/m L 0.450- 4.500 Not Available [facility] ([facility]) [address] [facility], [place], [address], 06/13/2024 06:25:14 06/11/1906/12/2024 PROST ATE-S PECIF IC AG prostate specific [...] t be inter prete d as absol poonam evide nce of the prese nce or absen ce of ana laura portillo se. Not Available [facility] ([facility]) [address] [facility], [place], [address], 06/13/2024 06:25:15 06/11/19 25 06/12/2024 VITAM IN D, 25-HY DROXY vitamin D, 25-hydroxy 10.3 NG/mL 30.0-1 00.0 below low normal Vitam in D defic iency has been defin ed by the Insti tute of Medic ine and an Endoc rine Socie ty pract ice guide line as a level of serum 25-OH vitam in D less than 20 ng/mL (1,2) . The Endoc rine Socie ty went on to furth er defin e vitam in D insuf ficie ncy as a level betwe en 21 and 29 ng/mL (2). 1. IOM (Inst itute of Medic ine). 2009. Dieta ry refer ence intak es for calci um and D. Lyudmila yang [place]: The Natio nal Acade [facility] Press . 2. Maris catalan MF, Pepe mata [place], Narciso off-F errar i ORTEGA, et al. Evalu ation , treat ment, and preve ntion of vitam in D defic iency : an Endoc rine Socie ty clini samuel pract ice guide line. JCEM. 2010; 96(7) :1911 -30. Not Available [facility] ([facility]) [address] [facility], [place], [address], 06/13/2024 06:25:16 02/12/20 21 02/10/2021 XR, ankle EXAMIN ATION: BILATE RAL FOOT AND ANKLE ACCESS ION: [id number] , [id number] EXAM DATE: 2020 3:01 PM REASON FOR EXAM: [id number] 009: Arthra lgia of the ankle and/or [...] BY: EDNA MONTAGUE, CORNELIO Date: 2020 08:49 [facility] ([facility]) [address] [place] [address], [address], 02/11/2021 15:32:01 02/12/20 21 02/10/2021 XR, foot EXAMIN ATION: BILATE RAL FOOT AND ANKLE ACCESS ION: [id number] , [id number] EXAM DATE: 2020 3:01 PM REASON FOR EXAM: [id number] 009: Arthra lgia of the ankle and/or [...] BY: EDNA MONTAGUE, CORNELIO Date: 2020 08:49 [facility] ([facility]) [address] [place] [address], [address], 02/11/2021 15:32:01 06/28/19 22 06/27/2021 XR, chest , 2 view No observ ation record ed. [address] [facility], [place], [address], 07/06/2021 09:34:50 05/07/19 23 05/07/2022 XR, chest , 2 view No observ ation record ed. [address], [place], [address], 05/10/2022 10:54:17 05/07/19 23 05/07/2022 XR, chest , 2 view No observ ation record ed. [address], [place], [address], 05/10/2022 10:54:26 06/09/19 23 06/09/2022 compl ete PFT w/ post [facility] hodil ator selam metry * No observ ation record ed. [address], [place], [address], 06/10/2022 11:36:06 12/09/19 23 12/08/2022 XR, chest , 2 view No observ ation record ed. [address], [place], [address], 12/09/2022 13:50:26 12/09/19 23 12/08/2022 CT, head + brain , w/o contr ast No observ ation record ed. [address], [place], [address], 12/09/2022 13:50:50 12/10/19 23 12/09/2022 US, echo ardio gram No observ ation record ed. [address], [place], [address], 12/09/2022 13:51:24 12/10/19 23 12/08/2022 CT, chest , w/o contr ast No observ ation record ed. [address], [place], [address], 12/09/2022 13:52:10 01/04/20 24 01/04/2024 CT, brain , w/o contr ast No observ ation record ed. [address], [place], [address], 06/11/2024 14:16:13 01/04/20 24 01/04/2024 XR, facia l bones No observ ation record ed. [address], [place], [address], 06/11/2024 14:17:13 Result Notes None recorded. Problems Name Problem SNOMED Code Status Onset Date Resolution Date Notes Provider Name and Address Organization Details Recorded Time Chronic obstructi ve pulmonary disease 62257374 Active 2019 Not Available [facility] 4 15:45:45 Congestiv e heart failure 62720208 Active 2019 Not Available [facility] 4 15:45:45 Hypertens juan disorder 73572138 Active 2019 Not Available [facility] 4 15:45:45 Screening for malignant neoplasm of colon Active 2019 Not Available [facility] 4 15:45:45 Opioid abuse 1664000 Active 2019 per ER note on 03/18/20 he snorts and injects fentanyl Not Available [facility] 4 15:45:45 Alcoholis m 2793821 Active 2020 Not Available [facility] 4 15:45:45 Obesity 779543631 Active 2022 Not Available [facility] 4 15:45:45 Fentanyl dependenc e 191542459 Active 2022 Not Available [facility] 4 15:45:45 Dependenc e on supplemen jack oxygen 29141627304 7 Active 2024 Dominick Kennedy MD Attn: Accounting ,[address] [place], [address] , [facility] 5 19:32:23 History of nicotine dependenc e Active 2024 Dominick Kennedy MD Attn: Accounting ,[address] [place], [address] , [facility] 5 19:33:53 Tetanus vaccinati on declined by patient 185908808 Active 2024 Dominick Kennedy MD Attn: Accounting ,[address] [place], [address] , [facility] 5 19:33:57 Problem Notes None recorded. Procedures Surgical History Date Name Laterality Status Provider Name and Address Organization Details Recorded Time Diabetic Foot Exam completed Dominick Kennedy MD Attn: Accounting,[address] [place], [address], [facility] 06/11/2024 19:37:15 10/26/202 1 Routine Foot Care completed CAROL SARKAR DPM [address] [facility], [place], [address], [facility] 02/10/2021 17:00:45 lobectomy of lower lobe of right lung completed JOHN TATE NP [address] [facility], [place], [address], [place] [facility] 08/24/2019 11:49:34 Oral surgery procedure completed Dominick Kennedy MD Attn: Accounting,[address] [facility], [place], [address], [place] [facility] 06/11/2024 14:34:21 Imaging Results Imaging Date Name Status LastModified by Organization Details LastModified Time 02/10/2021 XR, ankle completed [facility] ([facility]) [address] [place], [address], 02/11/2021 15:32:01 02/10/2021 XR, foot completed [facility] ([facility] [address] [facility], [place], [address], 02/11/2021 15:32:01 06/27/2021 XR, chest, 2 view completed [address], [address], 07/06/2021 09:34:50 05/07/2022 XR, chest, 2 view completed [address], [address], 05/10/2022 10:54:17 05/07/2022 XR, chest, 2 view completed [address], [address], 05/10/2022 10:54:26 06/09/2022 complete PFT w/ post bronchodilator spirometry* completed [address], [address], 06/10/2022 11:36:06 12/08/2022 XR, chest, 2 view completed [address], [address], 12/09/2022 13:50:26 12/08/2022 CT, head + brain, w/o contrast completed [address], [address], 12/09/2022 13:50:50 12/09/2022 US, echocardiogram completed [address], [address], 12/09/2022 13:51:24 12/08/2022 CT, chest, w/o contrast completed [address], [address], 12/09/2022 13:52:10 01/04/2024 CT, brain, w/o contrast completed [address] [address], [place], [address], 06/11/2024 14:16:13 01/04/2024 XR, facial bones completed [address], [address], 06/11/2024 14:17:13 Procedure Notes None recorded. Medical [...] Not Available Not Available No t Available ipratropium 0.5 mg-albutero l 3 mg (2.5 mg base)/3 mL nebulizatio n soln USE 3 ML VIA NEBULIZER EVERY 6 HOURS NEEDED FOR SHORTNESS OF BREATH OR WHEEZING active Not Available Not Available No t [...] Not Available doxepin 25 mg capsule TAKE 1 CAPSULE BY MOUTH AT BEDTIME NEEDED FOR INSOMNIA active Not Available Not Available No t Available fluconazole 200 mg tablet TAKE 1 TABLET BY MOUTH DAILY 09/21 completed Not Available Not Available Not Available lisinopril 20 mg tablet TAKE 1 TABLET BY MOUTH DAILY 06/11 completed Not Available Not Available Not Available ondansetron HCl 4 mg tablet 04/27 completed Not Available Not Available Not Available prednisone 20 mg tablet TAKE 2 TABLETS BY MOUTH DAILY AT 8 AM active Not Available Not Available No t Available clindamycin HCl 150 mg capsule Take 1 capsule every 6 hours by oral route for 7 days. 08/23 completed Not Available Not Available Not Available thiamine HCl (vitamin B1) 100 mg tablet TAKE 1 TABLET BY MOUTH DAILY active Not Available Not Available No t Available sulfamethox azole 800 mg-trimetho prim 160 [...] Not Available Not Available No t Available hydroxyzine HCl 25 mg tablet TAKE [...] Not Available Not Available No t Available cefdinir 300 mg capsule TAKE 1 [...] Not Available Not Available Not Available nicotine 7 mg/24 hr daily transdermal patch UNWRAP AND APPLY 1 PATCH DIRECTED DAILY active Not Available Not Available No t Available azithromyci n 500 mg tablet TAKE [...] MOUTH EVERY DAY DIRECTED FOR HYPERTENS ION 2024 active Not Available Not Available Not Avai lable Mavyret 100 mg-40 mg tablet 06/11 completed Not Available Not Available Not Available Afluria Quad 5356-1197 (PF) 60 mcg (15 mcg x 4)/0.5 [...] Updated DateTime 1 182.88 cm 33.6 kg/m2 582570. 19 g 97 /min 97.7 [degF] 0 115 mm[Hg] 64 mm[Hg] Ely Eisenberg LPN [place] [facility] 1 14:43:54 Date Recorded Body height Body mass index (BMI) Body weight Heart rate Oxygen saturation Oxygen saturation in Arterial blood by Pulse oximetry Systolic blood pressure Diastolic blood pressure Provider Name and Address Organization Details Last Updated DateTime 2 182.88 cm 34.9 kg/m2 017597. 24 g 107 /min 96 % 96 % 110 mm[Hg] 68 mm[Hg] VICTORIA SPARKS Attn: Ruslanin g,[address] [place], [address], [facility] 2 15:31:32 Date Recorded Body height Body mass index (BMI) Body weight Systolic blood pressure Diastolic blood pressure Provider Name and Address Organization Details Last Updated DateTime 05/20/2022 182.88 cm 34.2 kg/m2 528196.0 8 g 130 mm[Hg] 84 mm[Hg] Carolina Babin MA [facility] 3 15:34:10 Date Recorded Heart rate Oxygen saturation Oxygen saturation in Arterial blood by Pulse oximetry Provider Name and Address Organization Details Last Updated DateTime 05/20/2022 100 /min 97 % 97 % VICTORIA SPARKS Attn: Accounting, [address] [place], [address], [facility] 05/22/2022 08:58:57 Date Recorded Body height Body mass index (BMI) Body weight Heart rate Oxygen saturation Oxygen saturation in Arterial blood by Pulse oximetry Systolic blood pressure Diastolic blood pressure Provider Name and Address Organization Details Last Updated DateTime 3 182.88 cm 35.7 kg/m2 491029. 89 g 103 /min 94 % 94 % 134 mm[Hg] 86 mm[Hg] Carolina Babin MA [facility] 3 14:10:00 Date Recorded Body height Body mass index (BMI) Body weight Heart rate Oxygen saturation Oxygen saturation in Arterial blood by Pulse oximetry Inhaled oxygen flow rate Respiratory rate Body temperature Systolic blood pressure Diastolic blood pressure Provider Name and Address Organization Details Last Updated DateTime 5 182.88 cm 34.7 kg/m2 966293. 65 g 104 /min 92 % 92 % 4 L/min 18 /min 98.5 [degF] 126 mm[Hg] 60 mm[Hg] Tuyet Chou MA [facility] 5 14:14:20 Social History Question Answer Notes LastModified by Organizat ion Details LastModified Time Tobacco Smoking Status Current Every Day Smoker TRESA Clarke, [facility] 09/05/2018 15:01:04 What Is Your Level Of [...] Has Tobacco Cessation Counseling Been Provided? Yes Information not available 09/21/2022 On What Date [...] N Osteoporosis/Osteopenia N Anemia N Heart Attack ([place]) N Diabetes N Seizures/Epilepsy N Tuberculosis N [...] or 50 mcg/0.25mL dose 1 completed Dorinda Franoc MA null, [place] - [facility] 08/08/2020 15:03:55 COVID-19, mRNA, LNP-S, PF, 100 mcg/0.5mL dose or 50 mcg/0.25mL dose 1 completed Carlito Sue MA null, [place] [facility] 09/10/2020 16:31:25 Pneumococcal conjugate PCV20, polysaccharide [id number] conjugate, adjuvant, PF 3 completed VICTORIA SPARKS Attn: Accounting,[address], [place], [address], [place] [facility] 09/30/2022 13:52:31 Past Encounters Encounter ID Performer Location Encounter Start Date Encounter Closed Date Diagnosis/Indication Diagnosis SNOMED-CT Code Diagnosis ICD10 Code Diagnosis Note [id number] Any Martinez [facility] [address] [facility] [address] [place] [address] 03/16/2018 16:07:50 03/17/2018 14:42:04 Chronic obstructive pulmonary disease 21127866 J44.9 Chronic lung disease, likely COPD Patient [...] evaluate lung functional status Congestive heart failure 27050668 I50.9 Heart failure with preserved ejection fraction [...] to be on chronic Lasix dose Cellulitis 412380202 L03 .90 LE cellulitis , subsequent encounter, [...] to complete course as prescribed at hospital [id number] Patricia Martinez [address] [facility] [place] [address] [place] [address] 09/05/2018 14:52:54 09/06/2018 10:18:02 Chronic obstructive pulmonary disease 33817144 J44.9 COPD Patient likely has COPD as he had no history of childhood asthma and has approximat kamran 1 pack/day 20-year history of smoking and citing some occasional shortness of breath. -Albuterol as needed shortness of breath - Pulm referral for PFTs Neck pain 52270589 M54.2 Neck pain Patient fallen off his [...] - Cervical neck x-ray Low back pain 464102571 M54.5 Back pain Patient endorsed chronic history [...] spine - Tylenol scheduled - Ibuprofen scheduled [id number] VICTORIA SPARKS [facility] [address] [place] [address] 04/27/2019 14:29:14 04/30/2019 09:34:07 Numbness of hand 093395054 R20.0 Chronic ob structive pulmonary disease 38625562 J44.9 COPD Patient likely has COPD as he had no history of childhood asthma and has approximat kamran 1 pack/day 30-year history of smoking and citing some occasional shortness of breath. -Albuterol as needed shortness of breath - LDCT as 53 with over 30 pack year smoker- stop smoking Neck pain 37481398 M54.2 Neck pain Patient fallen off his couch over 9 months ago which has resulted in mild neck pain and some persistent forward flexion 2/2 pain. Physical exam today nothing concerning for significan t fracture. never got xray ordered by last provider. - Tylenol scheduled - Ibuprofen schedule Low back pain 144436529 M54.5 Patient endorsed chronic history of low [...] appreciate d - Ibuprofen scheduled Heart failure 80509411 I 50.9 patient has a history of heart failure. Sending to cardiology . Headache 12074737 R51 patient endorses 9 months of headaches after falling off couch. Headaches are occipital and dull in nature. They happen everyday. He has the worst headache last week but did not seek medical help despite telling him to go. - educated on headahces and going to ER if worst headache, develops weakness on one side, slurring words Essential hypertension 89964230 I10 BP 130/80, WNLAdvised to check BP regularly with a goal of <140/90, if BP consistent ly >140/90, advised to contact clinic Discussed DASH diet Advised 30 minutes of exercise minimum daily Advised tobacco, alcohol, caffeine all increase BP Advised goal for BP is <140/90 Hypercholesterolemia 136 20362 E78.00 patient given labs as he is not fasting today. Prediabetes 429863213 R7 3.03 Chest pain on exertion 25735987 R07.89 patient has chest pain on exertions. [...] away. Screening for malignant neoplasm of colon 354064851 Z12.11 Has never had a colonoscop y. Patient agrees to have this done. [id number] Jam Babin MA [facility] [address] [place] [address] 05/02/2019 13:48:25 05/08/2019 11:51:44 Hyperlipidemia 42789023 E78.5 [id number] VICTORIA SPARKS [facility] [address] [place] [address] 06/28/2019 09:58:09 06/29/2019 09:37:49 Abscess 267778135 L02.91 patient has pain in for x 3 days. On exam patient has abscess that has been draining some. He refused to let me drain it here. Will start clindamyci n to cover for MRSA and pseudomona s. kristin hopi around area and asked patient to report to ER if redness continues to spread. Patient is to go home and apply warm compress to allow area to continue draining. He is to f/u next week in infection persists and needs xray to asess for bone infection. Essential hypertension 66313740 I10 BP 122/96, not WNL, did not take all medication todayAdvis ed to check BP regularly with a goal of <140/90, if BP consistent ly >140/90, advised to contact clinic Discussed DASH diet Advised 30 minutes of exercise minimum daily Advised tobacco, alcohol, caffeine all increase BP Advised goal for BP is <140/90 Heart failure 97550911 I 50.9 patient has a history of heart failure. He is on appropriat e medication s. - given informatio n on cardiologi st- limit sodium- excercise 30 mins 5x week- DASH diet- avoid alcohol and other drugs- stop smoking Chronic ob structive pulmonary disease 20337948 J44.9 COPD Patient likely has COPD as he had no history of childhood asthma and has approximat kamran 1 pack/day 30-year history of smoking and citing some occasional shortness of breath. - Albuterol as needed shortness of breath - LDCT as 53 with over 30 pack year smoker- stop smoking Hypercholesterolemia 136 02761 E78.00 refill 05/01/19 TC 181, tri 90, HDL 44, LDL 119 - encouraged to watch red meats, fried food, fast food- excercise 30 mins 5x week- continue medication as prescribed [id number] VICTORIA SPARKS [facility] [address] [place] [address] 08/10/2019 12:11:05 08/10/2019 15:36:26 Abscess 584024253 L02.91 patient has pain in for x 3 days. On exam patient has abscess that has been draining some. He refused to let me drain it here. Will start clindamyci n to cover for MRSA and pseudomona s. kristin hopi around area and asked patient to report to ER if redness continues to spread. Patient is to go home and apply warm compress to allow area to continue draining. He is to f/u next week in infection persists and needs xray to asess for bone infection. [id number] VICTORIA SPARKS [facility] [address] [place] [address] 08/10/2019 12:49:52 08/13/2019 10:11:58 Abscess 023833264 L02.91 continues to have draining swollen foot. advised to go to ER as he has failed two rounds of antibiotic s. He did not go to ER last time we spoke. He may have osteomyeli tis and it needs to be ruled out. [id number] JOHN TATE NP [facility] [address] [place] [address] 08/24/2019 08:02:25 09/17/2019 15:36:45 Screening for malignant neoplasm of colon 987503480 Z12.11 No FH or PMH of colon cancer of colon polyps Chronic ob structive pulmonary disease 00035600 J44.9 Managed in primary care Congestive heart failure 34169405 I50.9 Managed in primary care Hypertensive disorder 38 017190 I10 Managed in primary care [id number] VICTORIA SPARKS [facility] [address] [place] [address] 08/24/2019 09:26:17 08/27/2019 05:59:34 Acute injury of kidney 2377182536 9864645 N17.9 Patient was found to have BLADE. Advised to stay hydrated and make appointmen t to have kidney check next week. Cellulitis 906346651 L03 .90 Patient did go to ER after being advised to do so. They ruled out osteomyeli tis and was released on bactrim 800-160 2 pills BID. He states his foot looks much better and erythema and swelling have improved. - finish abx- f/u if gets worse- keep wound clean [id number] VICTORIA SPARKS [facility] [address] [place] [address] 05/27/2020 08:49:38 05/29/2020 20:06:02 Opioid abuse 8950186 F11.10 fentanyl injected and snorted Congestive heart failure 53242608 I50.9 Patient is non complaint and injecting [...] lower your cholestero l levels. Substance abuse 38451245 F19.10 Per ER note on 03/18 patient is injecting fentanyl, taking xanax from the street, using meth, and drinking 3-6 double shots of alcohol per day. Given detox number through [facility], instructed to go to ER 24 hours after last fentanyl. Plan is to do detox and f/u here for anxiety/de pression medication Alcoholism 3065338 F10.2 0 patient down to 3-6 double shots per day of alcohol. [id number] CORBIN Baltazar [address] [place] [address] 08/08/2020 11:58:39 08/11/2020 18:29:09 Administration of SARS-CoV-2 antigen vaccine 329204521 Z23 [id number] CORBIN Baltazar [address] [facility] [place] [address] 09/10/2020 14:07:36 09/11/2020 09:28:38 Administration of SARS-CoV-2 antigen vaccine 200373920 Z23 [id number] VICTORIA SPARKS [facility] [address] [place] [address] 09/17/2020 15:28:41 09/22/2020 04:17:32 Cellulitis of left lower limb 8223101695 0116934 L03.116 Patient was admitted to [facility] for celulitis of left lower limb. He [...] ER. Will send to obtain records from [facility]. - Going to ER Chronic ob structive pulmonary disease 55109786 J44.9 COPD. need inhaler refilled. Patient likely has COPD as he had no history of childhood asthma and has approximat kamran 1 pack/day 30-year history of smoking and citing some occasional shortness of breath. - Albuterol as needed shortness of breath - LDCT as 53 with over 30 pack year smoker - stop smoking Heart failure 29682273 I 50.9 patient has a history of [...] alcohol and other drugs - stop smoking [id number] Rubina Vila MD [facility] [address] [place] [address] 10/06/2020 16:59:33 10/10/2020 12:44:16 Smoker 23736697 F17.200 advised to quit smoking. patient will start cutting down on his own Alcoholism 0565216 F10.2 0 patient down to 3-6 double shots per day of alcohol and states he has not drank since out of hospital Hypertensive disorder 38 736133 I10 Patient bp elevated today. He was [...] is <140/90 Cellulitis of left lower limb [id number] 2755332 L03.116 Patient was admitted at [place] and completed three days and was discharged home with abx. He has just finished. Given number for wound care as he was referred out from hospital.- f/u 2 weeks- wound care- avoid fentynal, smoking to allow better healing- keep area clean Congestive heart failure 27676722 I50.9 Patient is non complaint and injecting [...] lower your cholestero l levels. Essential hypertension 48293767 I10 BP 122/96, not WNL, did not take all medication todayAdvis ed to check BP regularly with a goal of <140/90, if BP consistent ly >140/90, advised to contact clinic Discussed DASH diet Advised 30 minutes of exercise minimum daily Advised tobacco, alcohol, caffeine all increase BP Advised goal for BP is <140/90 Pulmonary hypertension 78987708 I27.20 Fentanyl dependence 4260 09130 F11.20 patient [facility]. He agrees and will think about it. I let him know I cannot treat fentynal abuse with hydrocodon e. Patient understand s. Mixed anxi ety and depressive disorder 728141564 F41.8 Patient will be treated for anxiety in hopes of weaning him off xanax. He was again advised to go through detox program through [employer]. He will consider it. - advised counseling [...] emerge). Additional ly, patient has suicide hotline #[phone]. - f/u one month - call with questions [phone] VICTORIA SPARKS [facility] [address] [place] [address] 01/06/2021 16:12:49 01/13/2021 12:22:20 Tinea pedis 8127976 B35.3 Congestive heart failure 76203381 I50.9 Patient is non complaint and injecting [...] lower your cholestero l levels. Ingrowing nail 039580662 L60.0 patient had long ingrown toe nails on b/l feet Smoker 21246256 F17.200 advised to quit smoking. patient will start cutting down on his own Cellulitis of left lower limb 2827617422 0530788 L03.116 appointmen t for would clinic made for patient today for January 26 at 1pm. number and address given to patient . he NCNS in September. advised aptient to call and cancel if he cannot make it.-f/u 2 weeks- wound care- avoid fentynal, smoking to allow better healing- keep area clean [id number] CAROL SARKAR DPM [facility] [address] [place] [address] 02/10/2021 14:28:32 03/17/2021 08:52:13 Bilateral atherosclerosis of arteries of lower limbs 9956730241 7679671 I70.203 Localized edema 66981983 4 R60.0 Ankle pain 513369056 M25 .579 Onychomycosis 700204650 B35.1 [place] - lesion 016024287 L84 Stasis francis matitis of lower limb due to chronic peripheral venous hypertension 981368932 I87.507 [id number] VICTORIA PSARKS [facility] [address] [place] [address] 03/15/2022 14:57:28 03/18/2022 09:46:44 Hospital inpatient stay within past 30 days 8701288976 106 Z76.89 - labs Screening for malignant neoplasm of respiratory tract 725669463 Z12.2 due for LDCT30+ pack year smoking hx Chronic ob structive pulmonary disease 87143762 J44.9 COPD. need inhaler refilled. using rescue [...] - stop smoking Chronic hepatitis C 1283 84851 B18.2 chronic hep C- lab- referral Pain of ri ght knee joint 9396528183 82323 M25.561 right knee pain post falling on it. Would like pain medication today but patient at risk of abuse due to alcoholism and fentanyl use. Edema of l ower extremity 864234039 R60.0 LE b/l edema with erythema. this is chronic Alcoholism 1726025 F10.2 0 patient down to 3-6 double shots per day of alcohol and states he has not drank since out of hospital HIV screening 508905070 Z11.4 Difficulty walking 79055 2002 R26.2 Patient having a hard time walking due to leg edema and recent knee injury. He is at risk for falling. He lives with and having hard moving and going to bathroom. Congestive heart failure 82842134 I50.9 non-compli ant with all medication s [...] your cholestero l levels. Fentanyl dependence 4260 45853 F11.20 [facility] He agrees and will think about it. I let him know I cannot treat fentynal abuse with hydrocodon e. Patient understand s. Obesity 857600804 E66.9 Tachycardia 8372519 R00. 0 [id number] VICTORIA SPARKS [facility] [address] [place] [address] 05/20/2022 15:27:30 05/26/2022 13:28:18 Stasis dermatitis 81640362 I87.2 Large ulcer on left lateral legpatient has it wrapped Prediabetes 892709977 R7 3.03 Intertrigo 29373623 L30. 4 on exam patient has erythema abdomen Congestive heart failure 84574495 I50.9 non-compli ant with all medication s [...] Screening for malignant neoplasm of respiratory tract 462306423 Z12.2 due for LDCT30+ pack year smoking hx Chronic ob structive pulmonary disease 35203985 J44.9 COPD. need inhaler refilled. using rescue [...] - stop smoking Chronic hepatitis C 1283 64577 B18.2 Genotype 1bpatient has f/u with GI at [facility] on June 04, 2022 Pain of ri ght knee joint 2260663129 63115 M25.561 following ortho and received injection to knee this weekpatien t walking with cane and does use walker Edema of l ower extremity 539438181 R60.0 LE b/l edema with erythema. this is chronic Alcoholism 9905546 F10.2 0 states he has not drank since out of hospital Fentanyl dependence 4260 27331 F11.20 currently on suboxone treatment through [facility] Obesity 944888537 E66.9 BMI34.2 Insomnia 719725287 G47.0 0 Taking seroquel for sleep through [facility] asked for benzo and advised not take any benzo with seroquel [id number] VICTORIA SPARKS [facility] [address] [place] [address] 09/21/2022 14:07:38 09/21/2022 15:00:28 Stasis dermatitis 37412090 I87.2 stopped going tow wound care, I didn't think I need them need recordsleg s are no longer draining, has scabs Prediabetes 442150147 R7 3.03 6.1 (09/2022) Congestive heart failure 35200660 I50.9 non-compli ant with all medication s [...] l levels. Chronic ob structive pulmonary disease 16845560 J44.9 COPD. need inhaler refilled. Patient likely has COPD as he had no history of childhood asthma and has approximat kamran 1 pack/day 30-year history of smoking and citing some occasional shortness of breath. - Albuterol as needed shortness of breath - LDCT as 53 with over 30 pack year smoker (has not obtained yet) - stop smoking Chronic hepatitis C 1283 91731 B18.2 Genotype 1bpatient has f/u with GI at [facility] almost finished with treatment Edema of l ower extremity 029665790 R60.0 LE b/l edema with erythema. this is chronic Alcoholism 1739739 F10.2 0 two shots of wallisian honey daily Fentanyl dependence 4260 53413 F11.20 currently on suboxone treatment through [facility] Obesity 942931880 E66.9 BMI35.7 Insomnia 746952937 G47.0 0 Taking seroquel for sleep through [facility] asked for benzo and advised not take any benzo with seroquel Administra tion of pneumococcal vaccine 44572436 Z23 Essential hypertension 33924331 I10 BP 122/96, not WNL, did not take all medication todayAdvis ed to check BP regularly with a goal of <140/90, if BP consistent ly >140/90, advised to contact clinic Discussed DASH diet Advised 30 minutes of exercise minimum daily Advised tobacco, alcohol, caffeine all increase BP Advised goal for BP is <140/90 Hypertensive disorder 38 490383 I10 Patient bp elevated today. He was [...] increase BPAdvised goal for BP is <140/90 [id number] Dominick Kennedy MD [facility] (Adult Med[facility] [address] [place] [address] 06/11/2024 13:49:06 06/13/2024 11:01:20 General examination of patient 282875397 Z00.01 Dependence on supplemental oxygen 0749230858 07 Z99.81 Impaired mobility 488855 05 Z74.09 He will benefit from a PMD to accomplish his ADLs Congestive heart failure 81686180 I50.9 Chronic ob structive pulmonary disease 43346483 J44.9 Essential hypertension 74353255 I10 Benign ess ential hypertension 1305136 I10 Chronic neck pain 135493 7786 107 M54.2 Tinea pedis 2530033 B35. 3 Dry skin dermatitis 2600 78520 L85.3 Screening for malignant neoplasm of prostate 017995235 Z12.5 Medication monitoring 39 4615293 Z51.81 History of nicotine dependence 5189672499 84793793 Z87.891 Tetanus va ccination declined by patient 638110401 Z28.21 Disorder o f lipid metabolism 767572877 E78.9 Health Concerns Section Related Observation LastModified by Organization Detai ls LastModified Time None Recorded Concern Status LastModified by Organization Details LastModified Time None Recorded Advance Directives Directive None Recorded Payers Encounter Date Sequence Insurance Name Policy Number Policy Hale Covered Member ID Hale Member ID Guarantor Name 02/10/2021 1 [facility] [employer] PRIOR TO 10/16/2020 (MEDICAID REPLACEMENT - HMO) Ozzy Ch [id number] Ozzy Ch 03/15/2022 1 [facility] ON OR AFTER 10/16/20 (MEDICAID REPLACEMENT - HMO) Ozzy Ch [id number] Ozzy Ch 05/20/2022 1 [facility] [employer] ON OR AFTER 10/16/20 (MEDICAID REPLACEMENT - HMO) Ozzy Ch [id number] Ozzy Ch 09/21/2022 1 [facility] [employer] ON OR AFTER 10/16/20 (MEDICAID REPLACEMENT - HMO) Ozzy Ch [id number] Ozzy Ch 06/11/2024 1 [place] [facility] Ozzy Ch [id number] Ozzy Ch Notes Date Note Type Note [...] with b/l lower leg swelling CAROL SARKAR, [address] [place], [address], [facility] 02/10/2021 17:10:46 03/15/2022 text/html admitted at [facility] 02/20/2022-02/23/2022 for alcohol withdrawal. opioid use, b/ leg edema, htn, copd. He drinks 8-10 shooters per week, smokes 15 cigs per day, and used fentanyl to help with leg pain. takes suboxone from clinic in [facility] every couple of days. took keflex -02/28 qid. need BMP per hospital recommendations. Patient has continues to use fentanyl. last used two days ago. States his leg is swollen again as he ran out of water pill from hospital. He also states he has been set up for ID at [place]. He says he has been using inhalers [...] been seen over one year ago. VICTORIA SAPRKS Attn: [address] [place], [address], [facility] 03/22/2022 20:46:06 05/20/2022 text/html Ozzy is a 62 Y O M pmhxz, substance use disorder, COPD, prediabetes, stasis dermatitis, HF, obesity presenting with son to [place] Patient was admitted for right knee pain and deconditioning at [place] 04/28/22-05/11/22. He received PT while admitted. He was set up with OP PT/OT through [place].Patient son states he is now from and is moving to apartment in [place] on his own. Son is going to help bring him to all appointments. He saw ortho this week and they gave him suboxone started one month through [facility]. They are also giving him seroquel for sleep. Per son he has appointment to start HepC treatment at [facility] June 04 VICTORIA SPARKS Attn: [address]ing[address] [facility], [place], [address], [facility] 05/22/2022 09:36:35 09/21/2022 text/html [...] per day. doing well on suboxone through [facility]. They are also giving him seroquel for sleep. Per son he is undergoing HepC treatment at [facility] VICTORIA SPARKS Attn: Accounting[address] [facility], [place], [address], [facility] 09/30/2022 13:57:36 06/11/2024 text/html [...] ER and may have been admitted to [facility] in January, with CHF, COPD and Pneumonia. He has been following up with his Psychiatrist at [place], his dentist or oral surgeon and it [...] insomnia. Dominick Kennedy MD Attn: [address] [facility], [place], [address], [facility] 06/11/2024 19:47:18
--- OUTSIDE RECORDS SUMMARY | 2024-08-03 12:15 | XMS_ITS ---
Author Organization [facility] Address [address] [place] [address] Care Team Providers Care Marketing Assistant Name Role Phone Roney Zurita Primary Care [...] Male Encounters Encounter Location Date Provider Diagnosis [address] [place] [address] 06/08/2024 Roney Zurita Insomnia G47.00 Assessments Encounter [...] * Riri CHOB:[birth year] (64 yo M)Acc No.[id number]:06/08/2024 Patient: Ozzy CUNHA :1960 A ge:64 Y S ex:Male Address:[address] [place] [address], [address] * Refills Refill Doxepin HCl Capsule, 25 MG, Orally, 10 Capsule, 1 capsule at bedtime, Once a day, 10 days, Refills=0 Refill Albuterol Sulfate HFA Aerosol Solution, 108 (90 Base) MCG/ACT, Inhalation, 1, 1 puff as needed, every 4 hrs, Refills=0 * true * Date: Generated for Rosemary marmolejo/Serena/Lucianoitting on: 0 08/03/2024 12:15 PM CDT
--- OUTSIDE RECORDS SUMMARY | 2024-08-03 12:15 | XMS_ITS | CONTINUITY OF CARE DOCUMENT ---
Author Name alex johnson Address Unknown Organization [facility] Address [address] [place] [address] Phone [phone] Care Team Providers Care Instructor Adjunct Pharmacy Technician Name Role Phone Anival MONTAGUE, Salo Unavailable [phone] Salo Florian MD Unavailable [phone] INSURANCE PROVIDERS Payer name Policy type / Coverage type Roxanne red constitution party ID DONYA MEDICAID (2) Medicaid [id number]
--- OUTSIDE RECORDS SUMMARY | 2024-08-03 12:15 | XMS_ITS ---
Author Organization [facility] Address [address] [place] [address] Care Team Providers Care Hair Weaver Name Role Phone Roney Zurita Primary Care Provider Allergies No Known Allergies Results Component Value [...] MG 1 tablet Orally Once a day [facility] Active Nicotine Polacrilex 4 MG 1 piece [...] 06/08/2024 Encounters Encounter Location Date Provider Diagnosis [address] [place] [address] 06/08/2024 Roney Zurita Opioid use disorder F11.99 [...] * Riri CHOB:[birth year] (64 yo M)Acc No.[id number]:06/08/2024 Patient: Ozzy CUNHA Provider: Ronnie Zurita, MSN, CLOTHES IRONER, PLUMBER'S HELPER-C :1960 A ge:64 Y S ex:Male Date:06/08/2024 Address:[address] [place], [place] [address] Check In:08:48 AM DISEASE MANAGEMENT NURSE Subjective: * Chief Complaints: * W alk-In [...] all T otal Score 0 S creening: Jolon Suicide Severity Rating Scale (LF) D o [...] 07/2021knee injury - [place] 05/01/2021neumonia 2022spiked drink oma-Gr[place] 12/2023 * Family History: F ather: . [...] 4 Weeks (Reason: JUN f/u) * * ASE MANAGEMENT NURSE Sign off status: Completed true * Provider: Ronnie Zurita, MSN, CLOTHES IRONER, PLUMBER'S HELPER-C Date: 0 06/08/2024 Generated for Rosemary marmolejo/Serena/Jazmynsmitting on: 0 08/03/2024 12:14 PM CDT History [...] Not at all Total Score: 0 Screening Jolon Suicide Sev erity Rating Scale (LF) Do [...]
--- OUTSIDE RECORDS SUMMARY | 2024-08-03 12:15 | XMS_ITS | Clinical Summary ---
Author Organization [facility] [address] Address [address] [place] [address] Care Team Providers Care Human Resources Operations Specialist Name Role Phone Tomeka Knight Primary Care [...] (05/14/2022): Added automatically from request for surgery [id number] Obesity (BMI 30.0-34.9) 04/30/2022 Assessment & Plan (04/30/2022 4:49 PM TENTER FEEDER): Diet and exercise. Right knee pain 04/28/2022 Assessment & Plan (04/29/2022 1:57 PM TENTER FEEDER): Chronic. Right knee MRI 02/2022 demonstrated fracture of right medial femoral condyle, tear of right medial meniscus, and effusion/synovitis. Ortho recommended non op, WBAT. Has not followed up with ortho after discharge. -Encourage ortho follow up -Voltaren gel -APAP -seen by PT/OT; will discharge with walker and home therapy Assessment & Plan (04/28/2022 1:14 AM TENTER FEEDER): Chronic. Right knee MRI 02/2022 demonstrated fracture of right medial femoral condyle, tear of right medial meniscus, and effusion/synovitis. Ortho recommended non op, WBAT. Has not followed up with ortho after discharge. -Encourage ortho follow up -Voltaren gel -APAP -PT/OT Alcohol abuse 04/28/2022 Assessment & Plan (04/28/2022 2:18 PM TENTER FEEDER): Drinks 2- 3 shots before bed. No active withdrawals. -Thiamine, folate -Encourage Cessation -Monitor for withdrawal Assessment & Plan (04/28/2022 1:15 AM TENTER FEEDER): Drinks 2- 3 shots before bed. No active withdrawals. -Thiamine, folate -Encourage Cessation -Monitor for withdrawal Elevated alkaline phosphatase level 04/28/2022 Assessment & Plan (04/30/2022 4:09 PM TENTER FEEDER): Unclear etiology. HCV positive. GGTP elevated. Intra and extrahepatic dilatation noted on US; MRI to be performed later this evening. Assessment & Plan (04/28/2022 1:15 AM TENTER FEEDER): Unclear etiology. HCV positive. -Check GGT and Liver ultrasound for now. HCV (hepatitis C virus) 04/28/2022 Assessment & Plan (04/28/2022 2:20 PM TENTER FEEDER): Chronic and untreated. Missed ID clinic appointment 04/20/22; stated getting a ride is the problem. -Genotype pending. -Needs outpatient follow up. Assessment & Plan (04/28/2022 1:16 AM TENTER FEEDER): Chronic and untreated. Missed ID clinic appointment 04/20/22. -Needs outpatient follow up. Acute on chronic diastolic heart failure 023 Assessment & Plan (04/29/2022 1:54 PM TENTER FEEDER): TTE with normal EF. Previously g1DD and increased RVSP. -S/P 60mg IV Lasix in ED, then 40mg IV BID daily -Will change to Lasix 40mg po 04/30 -Continue metoprolol, statin, ASA Assessment & Plan (04/28/2022 1:17 AM TENTER FEEDER): TTE with normal EF. Previously g1DD and increased RVSP. Hypervolemic on examination today. -S/P 60mg IV Lasix in ED, continue 40mg IV BID daily -Monitor electrolytes and replete -Continue metoprolol, statin, ASA Venous stasis dermatitis of both lower extremiti es 04/27/2022 Assessment & Plan (04/29/2022 1:54 PM TENTER FEEDER): Chronic venous stasis dermatitis. No infectious symptoms, [...] following. Assessment & Plan (04/28/2022 1:10 AM TENTER FEEDER): Chronic venous stasis dermatitis. No infectious symptoms, normal lactate, no fevers, and no WBC making infection less concerning though given ulcer on left lateral leg, cannot rule out superimposed infection. Also has prior dopplers demonstrating chronic DVT at the level of the popliteal vein in the left. Post thrombotic changes could be contributing though bilateral symptoms. Discussed with vascular supersonic engineer about AC in chronic DVTs and no [...] 09/20/2020 Assessment & Plan (04/30/2022 4:08 PM TENTER FEEDER): Elevated total protein thought to be related to HCV. -Check SPEP/UPEP given alk phos elevation. Immunofixation unremarkable. UPEP pending. -Needs to follow up with ID for HCV treatment. Assessment & Plan (04/28/2022 1:13 AM TENTER FEEDER): Elevatedt total protein thought to be related [...] 08/22/2019 Assessment & Plan (04/30/2022 4:09 PM TENTER FEEDER): Smokes @ 1ppd -Duonebs for now -Smoking cessation; wants nicotine patch in the hospital; states he has some at home and does not need any prescribed. Assessment & Plan (04/28/2022 1:11 AM TENTER FEEDER): Wheezing bilaterally. Denies SOB. Still smoking. Not [...] abuse Assessment & Plan (04/30/2022 4:07 PM TENTER FEEDER): Active use of Fentanyl. No longer followed in clinic for Suboxone; was being followed at [facility] in [place] up until 2mo ago per pt. -Encourage cessation -Seen for substance use. Pt is currently on patch. When discussing f/u at the [facility] clinic, he reports that he plans on quitting on his own. On further discussion, he agreed to an appointment - he will be seeing them on Tuesday. Assessment & Plan (04/28/2022 1:12 AM TENTER FEEDER): Active use of Fentanyl. No longer followed [...] Assessment & Plan (08/22/2019 5:28 AM CDT): [place] most likely to be drug-induced reaction. No [...] How often do you attend chur or quaker services? Never 02/24/2022 Do you belong to any clubs o r organizations such as shinto groups, unions, fraternal or athletic groups, or [...] place to sleep or slept in a skilled nursing (including now)? No 02/24/2022 Personal Safety Answer Date Recorded Have you ever been in or are you currently in a harmful physical or emotional relationship or is someone making you feel afraid or unsafe? Denies 11/26/2022 Sex and Gender Information Value Date Recorded Sex Assigned at Not on file Legal Sex Male 6:41 PM TENTER FEEDER Gender Identity Not on file Sexual Orientation [...] (258 lb 6.4 oz) 06/04/2022 9:57 AM TENTER FEEDER Height 182.9 cm (6' 0.01 ) 06/04/2022 9:57 AM CS T Body Mass Index 35.04 06/04/2022 9:57 AM TENTER FEEDER Plan of Treatment Health Maintenance Due Date [...] HEPATITIS C GENOTYPE Routine 06/04/2022 11:06 AM TENTER FEEDER Acute hepatitis C virus infection without hepatic coma CT ABDOMEN PELVIS WO CONTRAST 09/06/2020 12:00 AM CDT from Last 3 Months or Most Recently Relevant to Health Maintenance Results * Hepatitis C genotype (06/04/2022 11:06 AM TENTER FEEDER) HCV genotype TNP [facility] Comment: HCV Genotype, S was cancelled on 06/09/2022 at 16:01; Duplicate test request. Test Performed by: [facility] [address] [place] [address] Recruitment Director: Harpal Gregory M.D. Ph.D.; CLIA# [id number] Blood 06/04/2022 11:0 6 AM TENTER FEEDER 06/04/2022 1:32 PM TENTER FEEDER us Gudelia Singh MD LAB MICROBIOLOGY - GENERAL ORDER TATYANA Final Result [facility] Department of Laboratories [place], [place] [id number] * CT Abdomen Pelvis WO Contrast (09/06/2020 12:00 AM CDT) Anatomical Region Laterality Modality Body N/A Computed Tomogra phy 09/06/2020 2:12 PM CDT Narrative 09/06/2020 2:23 PM CDT Patient Name: OZZY CH Ordering Dr: Francesca Zazueta MDO.B: 1960 Exam Date: 09/06/20 0000 Age: 60 Sex: Male MR#: [id number] Loc: S220-02 RADIOLOGY REPORT Order #[id number] CT Scan CT Abd/Pelvis WO IV Contrast [...] by Danette Maya TS T: Report ID: [id number] Reading Location: [place] [address] REPORT ELECTRONICALLY SIGNED IN OTHER VENDOR SYSTEM Resulting Agency Comment I Procedure Note Danette Maya MD - 09/06/2020 Patient Name: OZZY CH Dr: Francesca Zazueta MD D.O.B: 1960 Exam Date: 09/06/20 0000 Age: 60 Sex: Male MR#: [id number] Loc: S220-02 RADIOLOGY REPORT Order #[id number] CT Scan CT Abd/Pelvis WO IV Contrast [...] by Danette Maya TS T: Report ID: [id number] Reading Location: [id number] REPORT ELECTRONICALLY SIGNED IN OTHER VENDOR SYSTEM Francesca Zazueta MD IMG CT PROCEDUR ES Final Result from Last 3 Months or Most Recently Relevant to Health Maintenance Insurance [facility] [place] [address] [address] [place] [address] Member Subscriber Plan / Payer (Ef fective 2020-Present) Name:Ozzy Ch Relation to Subscriber:Self Name:Ozzy Ch Payer ID:[id number] (NAIC) Type:MEDICAID RISK OTHER Address: ATTN: CLAIMS DEPT [address] [facility] [place] [phone] Advance Directives For more information, please contact: [phone] * Full Code (Latest Code Status on [...] 5:04 AM 08/22/2019 9:25 PM Care Teams Human Resources Operations Specialist Relationship Specialty Start Date End Date Tomeka Knight PA PCP - General Physician Stripper And Taper 06/28/19
[2024-08-03 12:52] LABS: Basophils Percent Auto 0.4 % (0.2-1.2); Eosinophils Absolute Auto 0.6 K/mm3 (0-0.3); Eosinophils Percent Auto 8.2 % (0-4.4); Hematocrit 42.4 % (42.0-52.0); Hemoglobin 13.3 g/dL (14.0-18.0); Immature Granulocyte Absolute 0.04 K/mm3 (0.00-0.031); Immature Granulocyte Percent A 0.6 % (0-0.5); Lymphocytes Absolute Auto 0.96 K/mm3 (0.9-3.2); Lymphocytes Percent Auto 13.8 % (18.3-44.2); Mean Corpuscular HGB Conc 31.4 g/dl (32-36); Mean Corpuscular Hemoglobin 30.2 pg (26-34); Mean Corpuscular Volume 96.1 fl (80-100); Mean Platelet Volume 10.3 fl (7.4-10.4); Monocytes Absolute Auto 0.6 K/mm3 (0.1-0.6); Monocytes Percent Auto 7.9 % (2.6-8.5); Neutrophils Absolute Auto 4.8 K/mm3 (1.3-6.7); Neutrophils Percent Auto 69.1 % (45.5-73.1); Platelet Count Result 203 k/mm3 (150-375); Red Blood Count 4.41 M/mm3 (4.6-6.20); Red Cell Distribution Width 13.9 % (11.5-14.5); White Blood Count 6.9 K/mm3 (4.5-10.0)
[2024-08-03 13:01] LABS: Alanine Aminotransferase 20 U/L (6-50); Albumin Level 4.3 g/dL (3.5-5.1); Alkaline Phosphatase 135 U/L (38-126); Anion Gap 9 mmol/L (4-12); Aspartate Amino Transferase 37 U/L (17-59); Bilirubin,Total 0.6 mg/dL (0.2-1.3); Blood Urea Nitrogen 15 mg/dL (9-20); Calcium 8.6 mg/dL (8.4-10.2); Carbon Dioxide 35 mmol/L (22-30); Chloride 96 mmol/L (98-107); Estimated Glomerular Filt Rate > 60; Glucose 111 mg/dL (65-110); Potassium 3.8 mmol/L (3.4-5.0); Sodium 140 mmol/L (137-145)
[2024-08-03 13:03] LABS: INR 1.1
--- OUTSIDE RECORDS SUMMARY | 2024-08-03 13:05 | XMS_ITS | CONTINUITY OF CARE DOCUMENT ---
Author Name alex johnson Address Unknown Organization [facility] Address [address] [place] [address] Phone [phone] Care Team Providers Care Pipe Welder Name Role Phone Anival MONTAGUE, Salo Unavailable [phone] Salo Florian MD Unavailable [phone] INSURANCE PROVIDERS Payer name Policy type / Coverage type Roxanne red alliance party ID DONYA MEDICAID (2) Medicaid [id number]
--- OUTSIDE RECORDS SUMMARY | 2024-08-03 13:05 | XMS_ITS | Referral Summary ---
Author Organization [facility] [address] Address [address] [place] [address] Care Team Providers Care Back Hanger Name Role Phone Tomeka Knight Primary Care [...] (05/14/2022): Added automatically from request for surgery [id number] Obesity (BMI 30.0-34.9) 04/30/2022 Assessment & Plan (04/30/2022 4:49 PM LANDSCAPER): Diet and exercise. Right knee pain 04/28/2022 Assessment & Plan (04/29/2022 1:57 PM LANDSCAPER): Chronic. Right knee MRI 02/2022 demonstrated fracture of right medial femoral condyle, tear of right medial meniscus, and effusion/synovitis. Ortho recommended non op, WBAT. Has not followed up with ortho after discharge. -Encourage ortho follow up -Voltaren gel -APAP -seen by PT/OT; will discharge with walker and home therapy Assessment & Plan (04/28/2022 1:14 AM LANDSCAPER): Chronic. Right knee MRI 02/2022 demonstrated fracture of right medial femoral condyle, tear of right medial meniscus, and effusion/synovitis. Ortho recommended non op, WBAT. Has not followed up with ortho after discharge. -Encourage ortho follow up -Voltaren gel -APAP -PT/OT Alcohol abuse 04/28/2022 Assessment & Plan (04/28/2022 2:18 PM LANDSCAPER): Drinks 2- 3 shots before bed. No active withdrawals. -Thiamine, folate -Encourage Cessation -Monitor for withdrawal Assessment & Plan (04/28/2022 1:15 AM LANDSCAPER): Drinks 2- 3 shots before bed. No active withdrawals. -Thiamine, folate -Encourage Cessation -Monitor for withdrawal Elevated alkaline phosphatase level 04/28/2022 Assessment & Plan (04/30/2022 4:09 PM LANDSCAPER): Unclear etiology. HCV positive. GGTP elevated. Intra and extrahepatic dilatation noted on US; MRI to be performed later this evening. Assessment & Plan (04/28/2022 1:15 AM LANDSCAPER): Unclear etiology. HCV positive. -Check GGT and Liver ultrasound for now. HCV (hepatitis C virus) 04/28/2022 Assessment & Plan (04/28/2022 2:20 PM LANDSCAPER): Chronic and untreated. Missed ID clinic appointment 04/20/22; stated getting a ride is the problem. -Genotype pending. -Needs outpatient follow up. Assessment & Plan (04/28/2022 1:16 AM LANDSCAPER): Chronic and untreated. Missed ID clinic appointment 04/20/22. -Needs outpatient follow up. Acute on chronic diastolic heart failure 023 Assessment & Plan (04/29/2022 1:54 PM LANDSCAPER): TTE with normal EF. Previously g1DD and increased RVSP. -S/P 60mg IV Lasix in ED, then 40mg IV BID daily -Will change to Lasix 40mg po 04/30 -Continue metoprolol, statin, ASA Assessment & Plan (04/28/2022 1:17 AM LANDSCAPER): TTE with normal EF. Previously g1DD and increased RVSP. Hypervolemic on examination today. -S/P 60mg IV Lasix in ED, continue 40mg IV BID daily -Monitor electrolytes and replete -Continue metoprolol, statin, ASA Venous stasis dermatitis of both lower extremiti es 04/27/2022 Assessment & Plan (04/29/2022 1:54 PM LANDSCAPER): Chronic venous stasis dermatitis. No infectious symptoms, [...] following. Assessment & Plan (04/28/2022 1:10 AM LANDSCAPER): Chronic venous stasis dermatitis. No infectious symptoms, normal lactate, no fevers, and no WBC making infection less concerning though given ulcer on left lateral leg, cannot rule out superimposed infection. Also has prior dopplers demonstrating chronic DVT at the level of the popliteal vein in the left. Post thrombotic changes could be contributing though bilateral symptoms. Discussed with vascular zoning assistant about AC in chronic DVTs and no [...] 09/20/2020 Assessment & Plan (04/30/2022 4:08 PM LANDSCAPER): Elevated total protein thought to be related to HCV. -Check SPEP/UPEP given alk phos elevation. Immunofixation unremarkable. UPEP pending. -Needs to follow up with ID for HCV treatment. Assessment & Plan (04/28/2022 1:13 AM LANDSCAPER): Elevatedt total protein thought to be related [...] 08/22/2019 Assessment & Plan (04/30/2022 4:09 PM LANDSCAPER): Smokes @ 1ppd -Duonebs for now -Smoking cessation; wants nicotine patch in the hospital; states he has some at home and does not need any prescribed. Assessment & Plan (04/28/2022 1:11 AM LANDSCAPER): Wheezing bilaterally. Denies SOB. Still smoking. Not [...] abuse Assessment & Plan (04/30/2022 4:07 PM LANDSCAPER): Active use of Fentanyl. No longer followed in clinic for Suboxone; was being followed at [facility] in [place] up until 2mo ago per pt. -Encourage cessation -Seen for substance use. Pt is currently on patch. When discussing f/u at the [place] [facility], he reports that he plans on quitting on his own. On further discussion, he agreed to an appointment - he will be seeing them on Tuesday. Assessment & Plan (04/28/2022 1:12 AM LANDSCAPER): Active use of Fentanyl. No longer followed [...] Assessment & Plan (08/22/2019 5:28 AM CDT): Guy most likely to be drug-induced reaction. No [...] often do you attend chur ch or worship services? Never 02/24/2022 Do you belong to any clubs o r organizations such as voodoo groups, unions, fraternal or athletic groups, or [...] place to sleep or slept in a detention (including now)? No 02/24/2022 Personal Safety Answer Date Recorded Have you ever been in or are you currently in a harmful physical or emotional relationship or is someone making you feel afraid or unsafe? Denies 11/26/2022 Sex and Gender Information Value Date Recorded Sex Assigned at Not on file Legal Sex Male 6:41 PM LANDSCAPER Gender Identity Not on file Sexual Orientation [...] (258 lb 6.4 oz) 06/04/2022 9:57 AM LANDSCAPER Height 182.9 cm (6' 0.01 ) 06/04/2022 9:57 AM CS T Body Mass Index 35.04 06/04/2022 9:57 AM LANDSCAPER Plan of Treatment Not on file Procedures Procedure Name Priority Date/Time Associated Diagnosis Comments HEPATITIS C GENOTYPE Routine 06/04/2022 11:06 AM LANDSCAPER Acute hepatitis C virus infection without hepatic coma CT ABDOMEN PELVIS WO CONTRAST 09/06/2020 12:00 AM CDT from Last 3 Months or Most Recently Relevant to Health Maintenance Results * Hepatitis C genotype (06/04/2022 11:06 AM LANDSCAPER) HCV genotype [facility] Comment: HCV Genotype, S was cancelled on 06/09/2022 at 16:01; Duplicate test request. Test Performed by: [facility] [address] [place] [address] Line Manager: Harpal Gregory M.D. Ph.D.; CLIA# [id number] Blood 06/04/2022 11:0 6 AM LANDSCAPER 06/04/2022 1:32 PM LANDSCAPER us Gudelia Singh MD LAB MICROBIOLOGY - GENERAL ORDER TATYANA Final Result [facility] Department [place] [address] * CT Abdomen Pelvis WO Contrast (09/06/2020 12:00 AM CDT) Anatomical Region Laterality Modality Body N/A Computed Tomogra phy 09/06/2020 2:12 PM CDT Narrative 09/06/2020 2:23 PM CDT Patient Name: OZZY CH Ordering Dr: Francesca Zazueta MD D.O.B: 1960 Exam Date: 09/06/20 0000 Age: 60 Sex: Male MR#: [id number] Loc: S220-02 RADIOLOGY REPORT Order #[id number] CT Scan CT Abd/Pelvis WO IV Contrast [...] 09/06/2020 2:23 PM - Electronically signed by Dnaette MILLER T: Report ID: [id number] Reading Location: [place] [address] REPORT ELECTRONICALLY SIGNED IN OTHER VENDOR SYSTEM Resulting Agency Comment I Procedure Note Danette Maya MD - 09/06/2020 Patient Name: OZZY CH Dr: Francesca Zazueta MD D.O.B: 1960 Exam Date: 09/06/20 0000 Age: 60 Sex: Male MR#: [id number] Loc: S220-02 RADIOLOGY REPORT Order #[id number] CT Scan CT Abd/Pelvis WO IV Contrast [...] by Danette Maya TS T: Report ID: [id number] Reading Location: [place] [address] REPORT ELECTRONICALLY SIGNED IN OTHER VENDOR SYSTEM Francesca Zazueta MD IM CT PROCEDUR ES Final Result from Last 3 Months or Most Recently Relevant to Health Maintenance Insurance [facility] Advance Directives For more information, please contact: [phone] * Full Code (Latest Code Status on [...] 5:04 AM 08/22/2019 9:25 PM Care Teams Back Hanger Relationship Specialty Start Date End Date Tomeka Knight PA PCP - General Physician Utility Worker Film Processing 06/28/19
--- OUTSIDE RECORDS SUMMARY | 2024-08-03 13:05 | XMS_ITS | Clinical Summary ---
Author Organization [facility] [place] [address] Address [address] [place] [address] Care Team Providers Care Assisted Living Housekeeper Name Role Phone Tomeka Knight Primary Care [...] (05/14/2022): Added automatically from request for surgery [id number] Obesity (BMI 30.0-34.9) 04/30/2022 Assessment & Plan (04/30/2022 4:49 PM CONSTRUCTION PROJECT ADMINISTRATOR): Diet and exercise. Right knee pain 04/28/2022 Assessment & Plan (04/29/2022 1:57 PM CONSTRUCTION PROJECT ADMINISTRATOR): Chronic. Right knee MRI 02/2022 demonstrated fracture of right medial femoral condyle, tear of right medial meniscus, and effusion/synovitis. Ortho recommended non op, WBAT. Has not followed up with ortho after discharge. -Encourage ortho follow up -Voltaren gel -APAP -seen by PT/OT; will discharge with walker and home therapy Assessment & Plan (04/28/2022 1:14 AM CONSTRUCTION PROJECT ADMINISTRATOR): Chronic. Right knee MRI 02/2022 demonstrated fracture of right medial femoral condyle, tear of right medial meniscus, and effusion/synovitis. Ortho recommended non op, WBAT. Has not followed up with ortho after discharge. -Encourage ortho follow up -Voltaren gel -APAP -PT/OT Alcohol abuse 04/28/2022 Assessment & Plan (04/28/2022 2:18 PM CONSTRUCTION PROJECT ADMINISTRATOR): Drinks 2- 3 shots before bed. No active withdrawals. -Thiamine, folate -Encourage Cessation -Monitor for withdrawal Assessment & Plan (04/28/2022 1:15 AM CONSTRUCTION PROJECT ADMINISTRATOR): Drinks 2- 3 shots before bed. No active withdrawals. -Thiamine, folate -Encourage Cessation -Monitor for withdrawal Elevated alkaline phosphatase level 04/28/2022 Assessment & Plan (04/30/2022 4:09 PM CONSTRUCTION PROJECT ADMINISTRATOR): Unclear etiology. HCV positive. GGTP elevated. Intra and extrahepatic dilatation noted on US; MRI to be performed later this evening. Assessment & Plan (04/28/2022 1:15 AM CONSTRUCTION PROJECT ADMINISTRATOR): Unclear etiology. HCV positive. -Check GGT and Liver ultrasound for now. HCV (hepatitis C virus) 04/28/2022 Assessment & Plan (04/28/2022 2:20 PM CONSTRUCTION PROJECT ADMINISTRATOR): Chronic and untreated. Missed ID clinic appointment 04/20/22; stated getting a ride is the problem. -Genotype pending. -Needs outpatient follow up. Assessment & Plan (04/28/2022 1:16 AM CONSTRUCTION PROJECT ADMINISTRATOR): Chronic and untreated. Missed ID clinic appointment 04/20/22. -Needs outpatient follow up. Acute on chronic diastolic heart failure 023 Assessment & Plan (04/29/2022 1:54 PM CONSTRUCTION PROJECT ADMINISTRATOR): TTE with normal EF. Previously g1DD and increased RVSP. -S/P 60mg IV Lasix in ED, then 40mg IV BID daily -Will change to Lasix 40mg po 04/30 -Continue metoprolol, statin, ASA Assessment & Plan (04/28/2022 1:17 AM CONSTRUCTION PROJECT ADMINISTRATOR): TTE with normal EF. Previously g1DD and increased RVSP. Hypervolemic on examination today. -S/P 60mg IV Lasix in ED, continue 40mg IV BID daily -Monitor electrolytes and replete -Continue metoprolol, statin, ASA Venous stasis dermatitis of both lower extremiti es 04/27/2022 Assessment & Plan (04/29/2022 1:54 PM CONSTRUCTION PROJECT ADMINISTRATOR): Chronic venous stasis dermatitis. No infectious symptoms, [...] following. Assessment & Plan (04/28/2022 1:10 AM CONSTRUCTION PROJECT ADMINISTRATOR): Chronic venous stasis dermatitis. No infectious symptoms, normal lactate, no fevers, and no WBC making infection less concerning though given ulcer on left lateral leg, cannot rule out superimposed infection. Also has prior dopplers demonstrating chronic DVT at the level of the popliteal vein in the left. Post thrombotic changes could be contributing though bilateral symptoms. Discussed with vascular home economics teacher about AC in chronic DVTs and no [...] 09/20/2020 Assessment & Plan (04/30/2022 4:08 PM CONSTRUCTION PROJECT ADMINISTRATOR): Elevated total protein thought to be related to HCV. -Check SPEP/UPEP given alk phos elevation. Immunofixation unremarkable. UPEP pending. -Needs to follow up with ID for HCV treatment. Assessment & Plan (04/28/2022 1:13 AM CONSTRUCTION PROJECT ADMINISTRATOR): Elevatedt total protein thought to be related [...] 08/22/2019 Assessment & Plan (04/30/2022 4:09 PM CONSTRUCTION PROJECT ADMINISTRATOR): Smokes @ 1ppd -Duonebs for now -Smoking cessation; wants nicotine patch in the hospital; states he has some at home and does not need any prescribed. Assessment & Plan (04/28/2022 1:11 AM CONSTRUCTION PROJECT ADMINISTRATOR): Wheezing bilaterally. Denies SOB. Still smoking. Not [...] abuse Assessment & Plan (04/30/2022 4:07 PM CONSTRUCTION PROJECT ADMINISTRATOR): Active use of Fentanyl. No longer followed in clinic for Suboxone; was being followed at [facility] in [place] up until 2mo ago per pt. -Encourage cessation -Seen for substance use. Pt is currently on patch. When discussing f/u at the [place] clinic, he reports that he plans on quitting on his own. On further discussion, he agreed to an appointment - he will be seeing them on Tuesday. Assessment & Plan (04/28/2022 1:12 AM CONSTRUCTION PROJECT ADMINISTRATOR): Active use of Fentanyl. No longer followed [...] Assessment & Plan (08/22/2019 5:28 AM CDT): Bonner most likely to be drug-induced reaction. No [...] How often do you attend chur or amish services? Never 02/24/2022 Do you belong to any clubs o r organizations such as yazidi groups, unions, fraternal or athletic groups, or [...] place to sleep or slept in a penitentiary (including now)? No 02/24/2022 Personal Safety Answer Date Recorded Have you ever been in or are you currently in a harmful physical or emotional relationship or is someone making you feel afraid or unsafe? Denies 11/26/2022 Sex and Gender Information Value Date Recorded Sex Assigned at Not on file Legal Sex Male 6:41 PM CONSTRUCTION PROJECT ADMINISTRATOR Gender Identity Not on file Sexual Orientation [...] (258 lb 6.4 oz) 06/04/2022 9:57 AM CONSTRUCTION PROJECT ADMINISTRATOR Height 182.9 cm (6' 0.01 ) 06/04/2022 9:57 AM CS T Body Mass Index 35.04 06/04/2022 9:57 AM CONSTRUCTION PROJECT ADMINISTRATOR Plan of Treatment Health Maintenance Due Date [...] HEPATITIS C GENOTYPE Routine 06/04/2022 11:06 AM CONSTRUCTION PROJECT ADMINISTRATOR Acute hepatitis C virus infection without hepatic coma CT ABDOMEN PELVIS WO CONTRAST 09/06/2020 12:00 AM CDT from Last 3 Months or Most Recently Relevant to Health Maintenance Results * Hepatitis C genotype (06/04/2022 11:06 AM CONSTRUCTION PROJECT ADMINISTRATOR) HCV genotype [facility]NP [facility] Comment: HCV Genotype, S was cancelled on 06/09/2022 at 16:01; Duplicate test request. Test Performed by: [id number] [place] [address] Motor Scooter Mechanic: Harpal Gregory M.D. Ph.D.; CLIA# [id number] Blood 06/04/2022 11:0 6 AM CONSTRUCTION PROJECT ADMINISTRATOR 06/04/2022 1:32 PM CONSTRUCTION PROJECT ADMINISTRATOR us Gudelia Singh MD LAB MICROBIOLOGY - GENERAL ORDER TATYANA Final Result [facility] Department of Laboratories [place], [place] [id number] * CT Abdomen Pelvis WO Contrast (09/06/2020 12:00 AM CDT) Anatomical Region Laterality Modality Body N/A Computed Tomogra phy 09/06/2020 2:12 PM CDT Narrative 09/06/2020 2:23 PM CDT Patient Name: OZZY CH Ordering Dr: Francesca Zazueta MDO.B: 1960 Exam Date: 09/06/20 0000 Age: 60 Sex: Male MR#: [id number] Loc: S220-02 RADIOLOGY REPORT Order #[id number] CT Scan CT Abd/Pelvis WO IV Contrast [...] by Danette Maya TS T: Report ID: [id number] Reading Location: [place] [address] REPORT ELECTRONICALLY SIGNED IN OTHER VENDOR SYSTEM Resulting Agency Comment I Procedure Note Danette Maya MD - 09/06/2020 Patient Name: OZZY CH Dr: Francesca Zazueta MD D.O.B: 1960 Exam Date: 09/06/20 0000 Age: 60 Sex: Male MR#: [id number] Loc: S220-02 RADIOLOGY REPORT Order #[id number] CT Scan CT Abd/Pelvis WO IV Contrast [...] by Danette Maya TS T: Report ID: [id number] Reading Location: [id number] REPORT ELECTRONICALLY SIGNED IN OTHER VENDOR SYSTEM Francesca Zazueta MD IMG CT PROCEDUR ES Final Result from Last 3 Months or Most Recently Relevant to Health Maintenance Insurance [facility] [place] [address] [place] [address] Member Subscriber Plan / Payer (Ef fective 2020-Present) Name:Ozzy Ch Relation to Subscriber:Self Name:Ozzy Ch Payer ID:[id number] (NAIC) Type:MEDICAID RISK OTHER Address: ATTN: CLAIMS DEPT [address] [facility] [place] [id number] Advance Directives For more information, please contact: [phone] * Full Code (Latest Code Status on [...] 5:04 AM 08/22/2019 9:25 PM Care Teams Assisted Living Housekeeper Relationship Specialty Start Date End Date Tomeka Knight PA PCP - General Physician Manager Emergency 06/28/19
[2024-08-03 13:08] LABS: Partial Thromboplastin Time 27.6 Seconds (22.3-36.8)
[2024-08-03 13:13] LABS: NT Pro B Type Natriuretic Pept 79 pg/mL (19.9-100); Troponin I < 0.012 ng/mL (0.000-0.034)
[2024-08-03] MEDS: FUROSEMIDE INJ 40 MG/4 ML VIAL 60 MG IV PUSH (13:52)
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
--- NOTE | 2024-08-03 15:33 | PC.NURSE ---
attempted to notify daughter pt is discharged and ready for fiber picker per pt request, no answer at this time
== END 2024-08-03 17:14 | disposition home or self-care (01) ==
PROVIDERS: Emergency Provider Family Medicine; PCP Internal Medicine Infectious Disease
DX: I11.0 Hypertensive heart disease with heart failure (principal); I50.813 Acute on chronic right heart failure; I27.20 Pulmonary hypertension, unspecified; I87.8 Other specified disorders of veins; J96.11 Chronic respiratory failure with hypoxia; J96.12 Chronic respiratory failure with hypercapnia; J44.9 Chronic obstructive pulmonary disease, unspecified; Z99.81 Dependence on supplemental oxygen; E78.5 Hyperlipidemia, unspecified; F41.9 Anxiety disorder, unspecified; F32.A Depression, unspecified; F17.210 Nicotine dependence, cigarettes, uncomplicated; Z90.2 Acquired absence of lung [part of]; I51.7 Cardiomegaly; I45.10 Unspecified right bundle-branch block
CPT/HCPCS: 36415; 71045; 80053; 83880; 84484; 85025; 85610; 85730; 93005; 96374; 99284; J1938

== ENCOUNTER 2024-08-13 21:57 | Inpatient (IN) | payer OTHER, SELFPAY ==
--- NOTE | ~2024-08-13 | CT_ITS ---
Clinical Indication: Dyspnea CT Scan of the Chest with Contrast: Technique: Contiguous sections were acquired throughout the chest after intravenous administration of 75 cc of Omnipaque 350. Dose reduction technique was used on this scan by utilizing automated exposu re control and iterative reconstruction technique. The dose-length product (DLP) was 785.65 mGy-cm. COMPARISON: 07/10/2024 Findings: There is no evidence of any significant mediastinal, hilar or axillary lymphadenopathy. There is no e vidence of aortic dissection or aneurysm. There is no evidence of pleural or pericardial effusion. There is moderate to advanced emphysema, especially the upper lobes. There is minimal bibasilar atele ctatic change. Images through the upper abdomen reveal small gallstones and gallbladder sludge. Impression: Moderate to advanced emphysema, especially in the upper lobes. Minimal bibasilar atelectatic change. Cholelithiasis and gallbladder sludge. Reviewed, dictated and finalized at [facility]. Impression: Moderate to advanced emphysema, especially in the upper lobes. Minimal bibasilar atelectatic change. Cholelithiasis and gallbladder sludge.
--- NOTE | ~2024-08-13 | US_ITS ---
BILATERAL LOWER EXTREMITY VENOUS ULTRASOUND Ordering provider: Prisca Johnson APRN History: . swelling/elevated DDIMER . Comparison: None. FINDINGS: RIGHT LOWER EXTREMITY VEINS: --COMMON FEMORAL: Patent and free of thrombus. Normal compressibility, phasic flow and augmentation. --PROXIMAL SUPERFICIAL FEMORAL: Patent and free of thrombus. Normal compressibility, phasic flow and augmentation. --DISTAL SUPERFICIAL FEMORAL: Patent and free of thrombus. Normal compressibility, phasic flow and au gmentation. --POPLITEAL: Patent and free of thrombus. Normal compressibility, phasic flow and augmentation. --POSTERIOR TIBIAL: Patent and free of thrombus. Normal compressibility, phasic flow and augmentation . Peroneal: Not visualized. LEFT LOWER EXTREMITY VEINS: --COMMON FEMORAL: Patent and free of thrombus. Normal compressibility, phasic flow and augmentation. --PROXIMAL SUPERFICIAL FEMORAL: Patent and free of thrombus. Normal compressibility, phasic flow and augmentation. --DISTAL SUPERFICIAL FEMORAL: Patent and free of thrombus. Normal compressibility, phasic flow and au gmentation. --POPLITEAL: Patent and free of thrombus. Normal compressibility, phasic flow and augmentation. --POSTERIOR TIBIAL: Patent and free of thrombus. Normal compressibility, phasic flow and augmentation . Peroneal: Not visualized. IMPRESSION: Negative bilateral lower extremity venous US. No deep vein thrombosis. Reviewed, dictated and finalized at location A.
--- NOTE | ~2024-08-13 | CT_ITS ---
EXAMINATION: CTA chest PE protocol DATE: 08/14/2024 16:29 CDT INDICATION: Shortness of breath. Pulmonary embolus suspected clinically TECHNIQUE: Computed tomographic angiography (CTA) of the chest was performed with 100 mL Omnipaque-35 0 intravenous contrast. The dose-length product was 1061.15 mGy-cm. Maximum intensity projection 3D-r econstructions of the aorta and other arteries were constructed by the technologist on a separate wor kstation. COMPARISON: 07/10/2024 FINDINGS/OBSERVATIONS: PULMONARY ARTERIES: No filling defect is identified within the main or proximal pulmonary artery. The main pulmonary artery is not enlarged. THORACIC AORTA: No aneurysmal dilatation or dissection is present. The great vessels are intact LUNGS: Severe panlobular emphysematous disease with peripheral honeycombing and subpleural bullous fo rmation. MEDIASTINUM: Redemonstration of scattered mediastinal lymphadenopathy without pathologic enlargement. No morphologically suspicious or pathologically enlarged lymph nodes are identified within the medias tinum or bilateral axilla. BONES OF THE CHEST: No acute fracture. No significant degenerative disease. No lytic or blastic lesions. HEART: The heart is enlarged, unchanged. No pericardial effusion. IMPRESSION: No pulmonary embolus. No thoracic aortic dissection. Severe panlobular emphysematous disease with peripheral honeycombing and subpleural bullous formation . Reviewed, dictated and finalized at location A. IMPRESSION: No pulmonary embolus. No thoracic aortic dissection. Severe panlobular emphysematous disease with peripheral honeycombing and subple ural bullous formation.
--- NOTE | ~2024-08-13 | XR_ITS ---
EXAMINATION: XR chest 1V portable Exam Date/Time: 08/13/2024 22:42 CDT HISTORY: shortness of breath Comparison: 08/03/2024; CTPA 07/10/2024. RESULT: Lines, tubes, and devices: None. Lungs and pleura: Moderate diffuse reticular opacities, with indistinct vessel origins and cuffing. Subsegmental right basilar and subsegmental left basilar airspace disease. Emphysematous change. Cardiomediastinal silhouette: Stable. Other: No acute osseous or upper abdominal finding. IMPRESSION: Subsegmental right basilar and segmental left basilar atelectasis/consolidation. Moderate interstitia l pulmonary edema. Reviewed, dictated and finalized at location K. IMPRESSION: Subsegmental right basilar and segmental left basilar atelectasis/consolidation . Moderate interstitial pulmonary edema.
--- OUTSIDE RECORDS SUMMARY | 2024-08-13 22:01 | XMS_ITS | Data Portability ---
Author Organization [facility] Address [address] [facility] [place] [address] Care Team Providers Care Clinic Mgr Name Role Phone TOMEKA MONTELONGO Primary Care Provider Unavailabl e Assessment Encounter Date Assessment Date Assessment LastModified by Organization Details LastModified Time 06/11/2024 06/11/2024 I am not willing to prescribe the 25 mg dose of Doxepin for insomnia. Initially, Mr Ch was not forthright with portions of his social history. oajao Not available 06/11/2024 19:41:23 Plan of Treatment Reminders Order Date Submit Date Provider Last Modified By Organization Details Last Modified Time Details Appointments None recorded . Lab pro BNP (pro B-type natriure tic peptide) , serum or plasma 2024 025 EMILY [facility], [address] [place] [address], [facility] [address], [place], [address], 5 06:25:12 urinalys is macro (dipstic k) panel, urine 2024 025 [facility], [address] [place] [address], [address], [place], [address], 5 08:24:22 CMP, serum or plasma 2024 025 [facility], [address] [place] [address], [address], [place], [address], 5 08:24:21 CBC w/ auto diff 2024 025 EMILY BULL, An[address]in[address], [address], [place], [address], 5 08:24:24 lipid panel, serum 2024 025 EMILY BULL, [facility] [address], [address], [place], [address], 5 08:24:19 vitamin D, 25-hydro xy, total, serum 2024 025 EMILY JARAMILLO, [facility], [address], [place], [address], 5 06:25:16 TSH, ultra-se nsitive, serum 2024 025 [facility]ILY J[facility]AMILLOISIDRO, [facility] [address], [address], [place], [address], 5 06:25:14 drug screen, urine 2024 025 EMILY JARAMILLOISIDRO, [facility], [address], [place], [address], 5 06:25:13 PSA, total, serum or plasma 2024 025 EMILY JARAMILLOISIDRO, [facility], [address], [place], [address], 5 06:25:15 albumin/ creatini ne, mass ratio, urine 2022 023 EMILY JARAMILLOISIDRO, [facility] [address], [address], [place], [address], 3 21:08:04 HbA1c (hemoglo bin A1c), blood 2022 023 EMILY [facility]ORP, [address], [address], [place], [address], 3 21:08:05 CMP, serum or plasma 2022 023 [facility], [address], [address], [place], [address], 3 21:08:05 CBC w/ auto diff 2022 023 [facility], [address], [address], [place], [address], 3 21:08:06 HbA1c (hemoglo bin A1c), blood 2022 023 EMILY In-Office Order, Internal Use Only DO Not Attach Compendium DO Not Attach Compendium, Do Not Delete/merge, 115[address] 3 16:09:17 CMP, serum or plasma 2022 023 EMILY JARAMILLORP, [address], [address], [place], [address], 3 22:07:38 CBC w/ auto diff 2022 023 [facility], [address], [address], [place], [address], 3 22:07:39 albumin/ creatini ne, mass ratio, urine 2022 023 [facility], [address], [address], [place], [address], 3 11:12:47 hepatiti s C virus RNA, quant, PCR, serum or plasma 2021 022 [facility], [address], [address], [place], [address], 22:06:53 CBC w/ auto diff 2021 022 [facility], [address] [facility], [address], [place], [address], 22:07:04 CMP, serum or plasma 2021 022 [facility], [address] [place] [address], [address], [place], [address], 22:07:03 HIV 1 + 2, meaningf ul use set 2021 022 [facility], [address] [facility], [address], [place], [address], 22:06:[address] referral 2024 025 martell Iraheta DPM, [address], [address], [place], [address], 15:20:59 pulmonol ogist referral 2024 025 EMILY Cummings MD, [address] [facility], [place], [address], 5 16:39:51 cardiolo gist referral 2024 025 martell Danielle DO, [address], [address], [place], [address], 5 15:20:59 physical therapis t referral - [place] Location [address] [facility], [address] [place], [address], 5 15:20:59 wound care referral 2022 023 [facility], [address] [facility], [address], [place], [address], 3 11:00:39 palliati ve medicine referral - palliati ve [address] [facility], [address], [address], [place], [address], 3 15:03:06 cardiolo gist referral 2022 023 [facility] Dionicio Danielle DO, [address], [address], [place], [address], 3 14:29:[address] referral [address], [address], [place], [address], 3 17:16:04 orthoped ic surgeon referral [address] [facility] ([facility]), [address] [facility], [address] [place] [address], [address], 2 12:39:51 physical therapis t referral [address] [facility] (Outpatient Physical Therapy), [address], [place], [address], 3 15:19:32 Procedures ankle brachial index complete (PROC) [address] [facility] (Surgery Sched), [address] [place], [address], 1 16:55:10 Surgeries None recorded . Imaging XR, cervical spine - Chronic neck pain [address], [address], [place], [address], 5 10:14:26 LDCT, chest, for lung cancer screenin g [address], [address] [place] [address] [address]te [facility], [place], [address], 5 10:14:26 LDCT, chest, for lung cancer screenin g [address] (Imaging), [address] [place] [address] Rte [facility], [place], [address], 3 13:28:18 US, duplex, venous, lower extremit y [address] (Imaging), [address] [place] [address] Rte [facility], [place], [address], 2 09:46:48 LDCT, chest, for lung cancer screenin g [address] (Imaging), [address] [place] [address] Rte [facility], [place], [address], 2 09:46:52 US, duplex, arterial , lower extremit y 2020 021 ATHENAFAX [facility] (Rad), [address], [place], [address], 17:15:16 XR, ankle 2020 021 [email or web address] [facility] [address], [place], [address], 15:47:17 XR, foot 2020 021 [email or web address] [facility]), [address], [place], [address], 15:47:55 US, duplex, venous, lower extremit y 2020 021 [facility] ([facility]), [address] [place], [address], 1 17:15:16 Medication Orders fluconaz ole 150 mg tablet 2024 025 [facility], [address] [place], [place], [id number], 5 14:57:04 albutero l sulfate HFA 90 mcg/actu ation aerosol inhaler 2024 025 [facility] #16727, [address] [place], [place], [id number], 5 14:54:01 aspirin 81 mg tablet,d elayed release 2024 [facility] #44529, [address] [place], [place], [id number], 5 14:54:07 metoprol ol tartrate 37.5 mg tablet 2024 025 [facility] #35095, [address] [place], [place], [id number], 5 14:54:04 furosemi de 40 mg tablet 2024 025 [facility] #10360, [address] [place], [place], [id number], 5 14:53:59 ammonium lactate 12 % lotion 2024 [facility] #21757, [address] [place], [place], [id number], 5 14:57:55 atorvast atin 20 mg tablet 2024 025 [facility] #59698, [address] [place], [place], [id number], 5 19:34:52 metoprol ol succinat e ER 25 mg tablet,e xtended release 24 hr 2022 023 [facility] #08530, [address] , [place], [place], [id number], 5 14:05:12 furosemi de 20 mg tablet 2022 023 [facility] #12708, [address] , [place], [place], [id number], 5 14:04:57 clotrima zole 1 % topical cream 2022 023 [facility] #07494, [address] [place], [place], [id number], 5 14:27:37 furosemi de 40 mg tablet 2021 022 [facility] #10441, [address] [place], [place], [id number], 2 17:15:24 Patient TargetsNo targets recorded. Patient Instructions Encounter Date Encounter Id Patient Instructions Last Modified By Organization Details Last Modified Time 02/10/2021 [id number] toenail fungus: care instructions fharry Not available 02/10/2021 17:08:03 03/15/2022 [id number] complete PFT w/ post bronchodilator spirometry* Not available 03/15/2022 16:00:52 A healthy lifestyle: care instructions Not available 03/22/2022 20:41:59 knee pain or injury: care instructions Not available 03/22/2022 20:39:23 05/20/2022 [id number] complete PFT w/ post bronchodilator spirometry* EMILY Not available 06/10/2022 06:06:21 A healthy lifestyle: care instructions Not available 05/22/2022 08:58:45 knee pain or injury: care instructions Not available 05/22/2022 08:58:45 09/21/2022 [id number] A healthy lifestyle: care instructions Not available 09/21/2022 14:52:26 06/11/2024 [id number] athlete's foot: care instructions oajao Not available 06/11/2024 14:56:55 high blood pressure: care instructions oajao Not available 06/11/2024 14:53:53 learning about high blood pressure oajao Not available 06/11/2024 14:53:54 heart failure: care instructions oajao Not available 06/11/2024 14:53:54 learning about heart failure oajao Not available 06/11/2024 14:53:53 dry skin: care instructions oajao Not available 06/11/2024 14:56:55 Labs Cardiology D/C summary from [facility] [place] Colonoscopy report from 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 Referral for Chronic hepatitis C Referring Physician: [...] Physician: General Christiana Sparks, Encounter Date: 05/20/2022 Pin Drafter Operator Referral for Co ngestive heart failure Referring Physician: Tomeka Montelongo, Milling/Polishing Operator, Encounter Date: 05/20/2022 Physical Therapist Referral for Impaired mobility [facility] Referring Physician: Dominick Kennedy, Internal Medicine, Encounter Date: 06/11/2024 Pin Drafter Operator Referral for Co ngestive heart failure CHF Referring Physician: Dominick Kennedy, Internal Medicine, Encounter Date: 06/11/2024 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 0 Not Available [facility] Department [address] [place], [address], 03/16/2022 22:07:03 03/15/20 22 03/16/2022 COMP. METAB OLIC PANEL (14) BUN 15 mg/dL 8-26 Not Available [facility] Department [address] [place], [address], 03/16/2022 22:07:03 03/15/20 22 03/16/2022 COMP. METAB OLIC PANEL (14) creatinine 0.81 mg/dL 0.50-1 .40 Not Available [facility] Department [address] [place], [address], 03/16/2022 22:07:03 03/15/20 22 03/16/2022 COMP. METAB OLIC PANEL (14) eGFR 99 mL/mi n/1.7 3 >=60 Not Available [facility] Department [address] [place], [address], 03/16/2022 22:07:03 03/15/20 22 03/16/2022 COMP. METAB OLIC PANEL (14) BUN/creatini ne ratio 18.3 Not Available [facility] Department [address] [place], [address], 03/16/2022 22:07:03 03/15/20 22 03/16/2022 COMP. METAB OLIC PANEL (14) sodium 134.0 mmol/ L 136.0- 144.0 below low normal Not Available [facility] Department [address] [place], [address], 03/16/2022 22:07:03 03/15/20 22 03/16/2022 COMP. METAB OLIC PANEL (14) potassium 4.6 mmol/ L 3.5-5. 3 Not Available [facility] Department [address] [place], [address], 03/16/2022 22:07:03 03/15/20 22 03/16/2022 COMP. METAB OLIC PANEL (14) chloride 94 mmol/ l 101-11 1 below low normal Not Available [facility] Department [address] [place], [address], 03/16/2022 22:07:03 03/15/20 22 03/16/2022 COMP. METAB OLIC PANEL (14) carbon dioxide, total 25.7 mmol/ L 21.0-3 2.0 Not Available [facility] Department [address] [place], [address], 03/16/2022 22:07:03 03/15/20 22 03/16/2022 COMP. METAB OLIC PANEL (14) calcium 10.0 mg/dL 8.2-10 .0 Not Available [facility] Department [address] [place] [address], [address], 03/16/2022 22:07:03 03/15/20 22 03/16/2022 COMP. METAB OLIC PANEL (14) protein, total 9.6 g/dL 6.7-8. 2 above high normal Not Available [facility] Department [address] [place], [address], 03/16/2022 22:07:03 03/15/20 22 03/16/2022 COMP. METAB OLIC PANEL (14) albumin 3.7 g/dL 3.5-5. 5 Not Available [facility] Department [address] [place], [address], 03/16/2022 22:07:03 03/15/20 22 03/16/2022 COMP. METAB OLIC PANEL (14) globulin, total 5.9 g/dL 1.5-4. 5 above high normal Not Available [facility] Department [address] [place], [address], 03/16/2022 22:07:03 03/15/20 22 03/16/2022 COMP. METAB OLIC PANEL (14) A/G ratio 0.6 Not Available [facility] Department [address] [place], [address], 03/16/2022 22:07:03 03/15/20 22 03/16/2022 COMP. METAB OLIC PANEL (14) bilirubin, total 0.6 mg/dL 0.0-1. 2 Not Available [facility] Department [address] [place], [address], 03/16/2022 22:07:03 03/15/20 22 03/16/2022 COMP. METAB OLIC PANEL (14) alkaline phosphatase 458.7 IU/L 42.0-1 21.0 above high normal Not Available [facility] Department [address] [place], [address], 03/16/2022 22:07:03 03/15/20 22 03/16/2022 COMP. METAB OLIC PANEL (14) AST (SGOT) 34.9 U/L 10.0-4 2.0 Not Available [facility] Department [address] [place], [address], 03/16/2022 22:07:03 03/15/20 22 03/16/2022 COMP. METAB OLIC PANEL (14) ALT (SGPT) 31.6 U/L 10.0-6 0.0 Not Available [facility] Department [address] [place], [address], 03/16/2022 22:07:03 03/15/20 22 03/16/2022 CBC WITH DIFFE RENTI AL/PL ATELE T WBC 10.2 K/uL 3.4-10 .8 Not Available [facility] Department [address] [place], [address], 03/16/2022 22:07:03 03/15/20 22 03/16/2022 CBC WITH DIFFE RENTI AL/PL ATELE T RBC 4.8 M/uL 4.5-6. 3 Not Available [facility] Department [address] [place], [address], 03/16/2022 22:07:03 03/15/20 22 03/16/2022 CBC WITH DIFFE RENTI AL/PL ATELE T hemoglobin 14.1 g/dL 13.5-1 7.5 Not Available [facility] Department [address] [place], [address], 03/16/2022 22:07:03 03/15/20 22 03/16/2022 CBC WITH DIFFE RENTI AL/PL ATELE T hematocrit 44.4 % 40.0-5 2.0 Not Available [facility] Department [address] [place], [address], 03/16/2022 22:07:03 03/15/20 22 03/16/2022 CBC WITH DIFFE RENTI AL/PL ATELE T MCV 93 fL 80-95 Not Available [facility] Department [address] [place], [address], 03/16/2022 22:07:03 03/15/20 22 03/16/2022 CBC WITH DIFFE RENTI AL/PL ATELE T MCH 30 pg 27-32 Not Available [facility] Department [address] [place], [address], 03/16/2022 22:07:03 03/15/20 22 03/16/2022 CBC WITH DIFFE RENTI AL/PL ATELE T MCHC 32 g/dL 32-36 Not Available [facility] Department [address] [place], [address], 03/16/2022 22:07:03 03/15/20 22 03/16/2022 CBC WITH DIFFE RENTI AL/PL ATELE T RDW 12.8 % 11.5-1 4.5 Not Available [facility] Department [address] [place], [address], 03/16/2022 22:07:03 03/15/20 22 03/16/2022 CBC WITH DIFFE RENTI AL/PL ATELE T platelets 317 K/uL 155-37 9 MPV 10.6 FL 8.9-1 2.7 N Not Available [facility] Department [address] [place], [address], 03/16/2022 22:07:03 03/15/20 22 03/16/2022 CBC WITH DIFFE RENTI AL/PL ATELE T neutrophils 74.2 % 40.0-7 4.0 above high normal Not Available [facility] Department [address] [place], [address], 03/16/2022 22:07:03 03/15/20 22 03/16/2022 CBC WITH DIFFE RENTI AL/PL ATELE T lymphs 12.8 % 14.0-4 6.0 below low normal Not Available [facility] Department [address] [place], [address], 03/16/2022 22:07:03 03/15/20 22 03/16/2022 CBC WITH DIFFE RENTI AL/PL ATELE T monocytes 8.2 % 4.0-12 .0 Not Available [facility] Department [address] [place], [address], 03/16/2022 22:07:03 03/15/20 22 03/16/2022 CBC WITH DIFFE RENTI AL/PL ATELE T eos 3 % 0-5 Not Available [facility] Department [address] [place], [address], 03/16/2022 22:07:03 03/15/20 22 03/16/2022 CBC WITH DIFFE RENTI AL/PL ATELE T basos 0.7 % 0.0-1. 0 Not Available [facility] Department [address] [place], [address], 03/16/2022 22:07:03 03/15/20 22 03/16/2022 CBC WITH DIFFE RENTI AL/PL ATELE T neutrophils (absolute) 7.6 K/uL 1.4-7. 0 above high normal Not Available [facility] Department [address] [place], [address], 03/16/2022 22:07:03 03/15/20 22 03/16/2022 CBC WITH DIFFE RENTI AL/PL ATELE T lymphs (absolute) 1.3 K/uL 0.7-3. 1 Not Available [facility] Department [address] [place], [address], 03/16/2022 22:07:03 03/15/20 22 03/16/2022 CBC WITH DIFFE RENTI AL/PL ATELE T monocytes(ab solute) 0.8 K/uL 0.1-0. 9 Not Available [facility] Department [address] [place], [address], 03/16/2022 22:07:03 03/15/20 22 03/16/2022 CBC WITH DIFFE RENTI AL/PL ATELE T eos (absolute) 0.3 K/uL 0.0-0. 4 Not Available [facility] Department [address] [place], [address], 03/16/2022 22:07:03 03/15/20 22 03/16/2022 CBC WITH DIFFE RENTI AL/PL ATELE T baso (absolute) 0.1 K/uL 0.0-0. 3 Not Available [facility] Department [address] [place], [address], 03/16/2022 22:07:03 03/15/20 22 03/16/2022 CBC WITH DIFFE RENTI AL/PL ATELE T immature granulocytes 1.5 % Not Available [facility] Department [address] [place], [address], 03/16/2022 22:07:03 03/15/20 22 03/16/2022 CBC WITH DIFFE RENTI AL/PL ATELE T immature grans (abs) 0.2 K/uL Not Available [facility] Department [address] [place], [address], 03/16/2022 22:07:03 03/15/20 22 03/16/2022 CBC WITH DIFFE RENTI AL/PL ATELE T NRBC 0 % Not Available [facility] Department [address] [place], [address], 03/16/2022 22:07:03 03/15/20 22 03/16/2022 HCV RNA BY PCR, QN RFX STEPHANIE test information: Commen t The quant itati ve range of this assay is 15 IU/mL to 100 angelo on IU/mL . Not Available [facility] ([facility]) [address] [facility], [place], [address], 03/20/2022 22:06:53 03/15/20 22 03/19/2022 HCV RNA BY PCR, QN RFX STEPHANIE hepatitis C quantitation 280996 0 IU/mL Not Available [facility] ([facility]) [address] [facility], [place], [address], 03/20/2022 22:06:53 03/15/20 22 03/19/2022 HCV RNA BY PCR, QN RFX STEPHANIE HCV log10 6.954 log10 _IU/m L Not Available [facility] ([facility]) [address] [facility], [place], [address], 03/20/2022 22:06:53 03/15/20 22 03/19/2022 HCV RNA BY PCR, QN RFX STEPHANIE HCV genotype Commen t To be perfo rmed on this speci men. Not Available [facility] ([facility]) [address] [facility], [place], [address], 03/20/2022 22:06:53 03/15/20 22 03/17/2022 HIV AB/P2 4 AG WITH REFLE X HIV Ab/P24 Ag screen Non Reacti ve nonrea ctive HIV Negat juan HIV-1 /HIV- 2 antib odies and HIV-1 p24 antig en were NOT detec cole. There is no labor atory evide nce of HIV infec tion. Not Available [facility] ([facility]) [address] [facility], [place], [address], 03/20/2022 22:06:54 03/15/20 22 03/19/2022 HEPAT ITIS [...] as inves tigat ional or [facility]. Not Available [facility] ([facility]) [address] [facility], [place], [address], 03/20/2022 22:06:54 03/15/20 22 03/20/2022 HEPAT ITIS C GENOT YPE hepatitis C genotype 1b Not Available [facility] ([facility]) [address] [facility], [place], [address], 03/20/2022 22:06:54 05/20/19 23 05/20/2022 COMP. METAB OLIC PANEL (14) glucose 104 mg/dL 65-99 above high normal ANION GP 22.0 mmol/ L N OSMOL 277.0 mOsM/ L N REFER ENCE RANGE : 275.0 -301. 0 Not Available [facility] Department [address] [place] [address], [address], 05/20/2022 22:07:38 05/20/19 23 05/20/2022 COMP. METAB OLIC PANEL (14) BUN 11 mg/dL 8-26 Not Available [facility] Department [address] [place], [address], 05/20/2022 22:07:38 05/20/19 23 05/20/2022 COMP. METAB OLIC PANEL (14) creatinine 0.71 mg/dL 0.50-1 .40 Not Available [facility] Department [address] [place], [address], 05/20/2022 22:07:38 05/20/19 23 05/20/2022 COMP. METAB OLIC PANEL (14) eGFR 102 mL/mi n/1.7 3 >=60 Not Available [facility] Department [address] [place], [address], 05/20/2022 22:07:38 05/20/19 23 05/20/2022 COMP. METAB OLIC PANEL (14) BUN/creatini ne ratio 16.1 Not Available [facility] Department [address] [place], [address], 05/20/2022 22:07:38 05/20/19 23 05/20/2022 COMP. METAB OLIC PANEL (14) sodium 138.6 mmol/ L 136.0- 144.0 Not Available [facility] Department [address] [place], [address], 05/20/2022 22:07:38 05/20/19 23 05/20/2022 COMP. METAB OLIC PANEL (14) potassium 4.0 mmol/ L 3.5-5. 3 Not Available [facility] Department [address] [place], [address], 05/20/2022 22:07:38 05/20/19 23 05/20/2022 COMP. METAB OLIC PANEL (14) chloride 100 mmol/ l 101-11 1 below low normal Not Available [facility] Department [address] [place] [address], [address], 05/20/2022 22:07:38 05/20/19 23 05/20/2022 COMP. METAB OLIC PANEL (14) carbon dioxide, total 21.4 mmol/ L 21.0-3 2.0 Not Available [facility] Department [address] [place], [address], 05/20/2022 22:07:38 05/20/19 23 05/20/2022 COMP. METAB OLIC PANEL (14) calcium 9.6 mg/dL 8.2-10 .0 Not Available [facility] Department [address] [place], [address], 05/20/2022 22:07:38 05/20/19 23 05/20/2022 COMP. METAB OLIC PANEL (14) protein, total 8.7 g/dL 6.7-8. 2 above high normal Not Available [facility] Department [address] [place] [address], [address], 05/20/2022 22:07:38 05/20/19 23 05/20/2022 COMP. METAB OLIC PANEL (14) albumin 3.7 g/dL 3.5-5. 5 Not Available [facility] Department [address] [place], [address], 05/20/2022 22:07:38 05/20/19 23 05/20/2022 COMP. METAB OLIC PANEL (14) globulin, total 5.0 g/dL 1.5-4. 5 above high normal Not Available [facility] Department [address] [place] [address], [address], 05/20/2022 22:07:38 05/20/19 23 05/20/2022 COMP. METAB OLIC PANEL (14) A/G ratio 0.7 Not Available [facility] Department [address] [place], [address], 05/20/2022 22:07:38 05/20/19 23 05/20/2022 COMP. METAB OLIC PANEL (14) bilirubin, total 0.4 mg/dL 0.0-1. 2 Not Available [facility] [address] [place], [address], 05/20/2022 22:07:38 05/20/19 23 05/20/2022 COMP. METAB OLIC PANEL (14) alkaline phosphatase 309.4 IU/L 42.0-1 21.0 above high normal Not Available [facility] [address] [place], [address], 05/20/2022 22:07:38 05/20/19 23 05/20/2022 COMP. METAB OLIC PANEL (14) AST (SGOT) 41.8 U/L 10.0-4 2.0 Not Available [facility] [address] [place], [address], 05/20/2022 22:07:38 05/20/19 23 05/20/2022 COMP. METAB OLIC PANEL (14) ALT (SGPT) 41.3 U/L 10.0-6 0.0 Not Available [facility] [address] [place], [address], 05/20/2022 22:07:38 05/20/19 23 05/20/2022 CBC WITH DIFFE RENTI AL/PL ATELE T WBC 7.5 K/uL 3.4-10 .8 Not Available [facility] [address] [place], [address], 05/20/2022 22:07:39 05/20/19 23 05/20/2022 CBC WITH DIFFE RENTI AL/PL ATELE T RBC 4.7 M/uL 4.5-6. 3 Not Available [facility] [address] [place], [address], 05/20/2022 22:07:39 05/20/19 23 05/20/2022 CBC WITH DIFFE RENTI AL/PL ATELE T hemoglobin 13.6 g/dL 13.5-1 7.5 Not Available [facility] [address] [place], [address], 05/20/2022 22:07:39 05/20/19 23 05/20/2022 CBC WITH DIFFE RENTI AL/PL ATELE T hematocrit 41.9 % 40.0-5 2.0 Not Available [facility] [address] [place], [address], 05/20/2022 22:07:39 05/20/19 23 05/20/2022 CBC WITH DIFFE RENTI AL/PL ATELE T MCV 90 fL 80-95 Not Available [facility] [address] [place], [address], 05/20/2022 22:07:39 05/20/19 23 05/20/2022 CBC WITH DIFFE RENTI AL/PL ATELE T MCH 29 pg 27-32 Not Available [facility] [address] [place], [address], 05/20/2022 22:07:39 05/20/19 23 05/20/2022 CBC WITH DIFFE RENTI AL/PL ATELE T MCHC 33 g/dL 32-36 Not Available [facility] [address] [place], [address], 05/20/2022 22:07:39 05/20/19 23 05/20/2022 CBC WITH DIFFE RENTI AL/PL ATELE T RDW 14.0 % 11.5-1 4.5 Not Available [facility] [address] [place], [address], 05/20/2022 22:07:39 05/20/19 23 05/20/2022 CBC WITH DIFFE RENTI AL/PL ATELE T platelets 318 K/uL 155-37 9 MPV 11.0 FL 8.9-1 2.7 N Not Available [facility] [address] [place], [address], 05/20/2022 22:07:39 05/20/19 23 05/20/2022 CBC WITH DIFFE RENTI AL/PL ATELE T neutrophils 63.6 % 40.0-7 4.0 Not Available [facility] [address] [place], [address], 05/20/2022 22:07:39 05/20/19 23 05/20/2022 CBC WITH DIFFE RENTI AL/PL ATELE T lymphs 19.0 % 14.0-4 6.0 Not Available [facility] [address] [place], [address], 05/20/2022 22:07:39 05/20/19 23 05/20/2022 CBC WITH DIFFE RENTI AL/PL ATELE T monocytes 7.6 % 4.0-12 .0 Not Available [facility] [address] [place], [address], 05/20/2022 22:07:39 05/20/19 23 05/20/2022 CBC WITH DIFFE RENTI AL/PL ATELE T eos 7 % 0-5 above high normal Not Available [facility] [address] [place], [address], 05/20/2022 22:07:39 05/20/19 23 05/20/2022 CBC WITH DIFFE RENTI AL/PL ATELE T basos 0.8 % 0.0-1. 0 Not Available [facility] [address] [place], [address], 05/20/2022 22:07:39 05/20/19 23 05/20/2022 CBC WITH DIFFE RENTI AL/PL ATELE T neutrophils (absolute) 4.8 K/uL 1.4-7. 0 Not Available [facility] [address] [place], [address], 05/20/2022 22:07:39 05/20/19 23 05/20/2022 CBC WITH DIFFE RENTI AL/PL ATELE T lymphs (absolute) 1.4 K/uL 0.7-3. 1 Not Available [facility] [address] [place], [address], 05/20/2022 22:07:39 05/20/19 23 05/20/2022 CBC WITH DIFFE RENTI AL/PL ATELE T monocytes(ab solute) 0.6 K/uL 0.1-0. 9 Not Available [facility] [address] [place], [address], 05/20/2022 22:07:39 05/20/19 23 05/20/2022 CBC WITH DIFFE RENTI AL/PL ATELE T eos (absolute) 0.5 K/uL 0.0-0. 4 above high normal Not Available [facility] [address] [place], [address], 05/20/2022 22:07:39 05/20/19 23 05/20/2022 CBC WITH DIFFE RENTI AL/PL ATELE T baso (absolute) 0.1 K/uL 0.0-0. 3 Not Available [facility] [address] [place], [address], 05/20/2022 22:07:39 05/20/19 23 05/20/2022 CBC WITH DIFFE RENTI AL/PL ATELE T immature granulocytes 1.9 % Not Available [facility] Department [address] [place], [address], 05/20/2022 22:07:39 05/20/19 23 05/20/2022 CBC WITH DIFFE RENTI AL/PL ATELE T immature grans (abs) 0.1 K/uL Not Available [facility] [address] [place], [address], 05/20/2022 22:07:39 05/20/19 23 05/20/2022 CBC WITH DIFFE RENTI AL/PL ATELE T NRBC 0 % Not Available [facility] [address] [place], [address], 05/20/2022 22:07:39 05/20/19 23 05/21/2022 ALBUM IN/CR EATIN INE RATIO ,URIN E creatinine, urine 179.4 mg/dL notest ab. Not Available [facility] ([facility]) [address] [place], [address], 05/21/2022 11:12:47 05/20/19 23 05/21/2022 ALBUM IN/CR EATIN INE RATIO ,URIN E albumin, urine 11.7 ug/mL notest ab. Not Available [facility] ([facility]) [address] [facility], [place], [address], 05/21/2022 11:12:47 05/20/19 23 05/21/2022 ALBUM IN/CR EATIN INE RATIO ,URIN E alb/creat ratio 7 mg/g_ creat 0-29 Brenda l: 0 - 29 Moder ately incre ased: 30 - 300 Sever kamran incre ased: >300 Not Available [facility] ([facility]) [address] [place], [address], 05/21/2022 11:12:47 05/20/19 23 05/20/2022 HbA1c (hemo globi n A1c), blood HbA1c 5.7% Not Available In-Office Order Internal Use Only DO Not Attach Compendium DO Not Attach Compendium, Do Not Delete/merge, [id number] 05/20/2022 15:45:07 09/22/19 23 09/22/2022 ALBUM IN/CR EATIN INE RATIO ,URIN E creatinine, urine 194.2 mg/dL notest ab. Not Available [facility] ([facility]) [address] [place], [address], 09/22/2022 21:08:04 09/22/19 23 09/22/2022 ALBUM IN/CR EATIN INE RATIO ,URIN E albumin, urine 17.1 ug/mL notest ab. Not Available [facility] ([facility]) [address] [place], [address], 09/22/2022 21:08:04 09/22/19 23 09/22/2022 ALBUM IN/CR EATIN INE RATIO ,URIN E alb/creat ratio 9 mg/g_ creat 0-29 Brenda l: 0 - 29 Moder ately incre ased: 30 - 300 Sever kamran incre ased: >300 Not Available [facility] ([facility]) [address] [place], [address], 09/22/2022 21:08:04 09/22/19 23 09/22/2022 COMP. METAB OLIC PANEL (14) glucose 108 mg/dL 70-99 above high normal Not Available [facility] ([facility]) [address] [place], [address], 09/22/2022 21:08:05 09/22/19 23 09/22/2022 COMP. METAB OLIC PANEL (14) BUN 11 mg/dL 8-27 Not Available [facility] ([facility]) [address] [facility] [place], [address], 09/22/2022 21:08:05 09/22/19 23 09/22/2022 COMP. METAB OLIC PANEL (14) creatinine 0.70 mg/dL 0.76-1 .27 below low normal Not Available [facility] ([facility]) [address] [facility] [place], [address], 09/22/2022 21:08:05 09/22/19 23 09/22/2022 COMP. METAB OLIC PANEL (14) eGFR 103 mL/mi n/1.7 3 >59 Not Available [facility] ([facility]) [address] [facility] [place], [address], 09/22/2022 21:08:05 09/22/19 23 09/22/2022 COMP. METAB OLIC PANEL (14) BUN/creatini ne ratio 16 10-24 Not Available [facility] ([facility]) [address] [facility] [place], [address], 09/22/2022 21:08:05 09/22/19 23 09/22/2022 COMP. METAB OLIC PANEL (14) sodium 138 mmol/ L 134-14 4 Not Available [facility] ([facility]) [address] [facility] [place], [address], 09/22/2022 21:08:05 09/22/19 23 09/22/2022 COMP. METAB OLIC PANEL (14) potassium 4.4 mmol/ L 3.5-5. 2 Not Available [facility] ([facility]) [address] [facility] [place], [address], 09/22/2022 21:08:05 09/22/19 23 09/22/2022 COMP. METAB OLIC PANEL (14) chloride 95 mmol/ L 96-106 below low normal Not Available [facility] ([facility]) [address] [facility] [place], [address], 09/22/2022 21:08:05 09/22/19 23 09/22/2022 COMP. METAB OLIC PANEL (14) carbon dioxide, total 28 mmol/ L 20-29 Not Available [facility] ([facility]) [address] [facility] [place], [address], 09/22/2022 21:08:05 09/22/19 23 09/22/2022 COMP. METAB OLIC PANEL (14) calcium 9.1 mg/dL 8.6-10 .2 Not Available [facility] ([facility]) [address] [facility] [place], [address], 09/22/2022 21:08:05 09/22/19 23 09/22/2022 COMP. METAB OLIC PANEL (14) protein, total 8.5 g/dL 6.0-8. 5 Not Available [facility] ([facility]) [address] [facility] [place], [address], 09/22/2022 21:08:05 09/22/19 23 09/22/2022 COMP. METAB OLIC PANEL (14) albumin 3.6 g/dL 3.8-4. 8 below low normal Not Available [facility] ([facility]) [address] [facility] [place], [address], 09/22/2022 21:08:05 09/22/19 23 09/22/2022 COMP. METAB OLIC PANEL (14) globulin, total 4.9 g/dL 1.5-4. 5 above high normal Not Available [facility] ([facility]) [address] [facility] [place], [address], 09/22/2022 21:08:05 09/22/19 23 09/22/2022 COMP. METAB OLIC PANEL (14) A/G ratio 0.7 1.2-2. 2 below low normal Not Available [facility] ([facility]) [address] [facility] [place], [address], 09/22/2022 21:08:05 09/22/19 23 09/22/2022 COMP. METAB OLIC PANEL (14) bilirubin, total 1.0 mg/dL 0.0-1. 2 Not Available [facility] ([facility]) [address] [facility] [place], [address], 09/22/2022 21:08:05 09/22/19 23 09/22/2022 COMP. METAB OLIC PANEL (14) alkaline phosphatase 221 IU/L 44-121 above high normal Not Available [facility] ([facility]) [address] [facility], [place], [address], 09/22/2022 21:08:05 09/22/19 23 09/22/2022 COMP. METAB OLIC PANEL (14) AST (SGOT) 13 IU/L 0-40 Not Available [facility] ([facility]) [address] [facility] [place], [address], 09/22/2022 21:08:05 09/22/19 23 09/22/2022 COMP. METAB OLIC PANEL (14) ALT (SGPT) 6 IU/L 0-44 Not Available [facility] ([facility]) [address] [facility] [place], [address], 09/22/2022 21:08:05 09/22/19 23 09/22/2022 CBC WITH DIFFE RENTI AL/PL ATELE T WBC 6.6 x10e3 /uL 3.4-10 .8 Not Available [facility] ([facility]) [address] [facility] [place], [address], 09/22/2022 21:08:06 09/22/19 23 09/22/2022 CBC WITH DIFFE RENTI AL/PL ATELE T RBC 5.12 x10e6 /uL 4.14-5 .80 Not Available [facility] ([facility]) [address] [place], [address], 09/22/2022 21:08:06 09/22/19 23 09/22/2022 CBC WITH DIFFE RENTI AL/PL ATELE T hemoglobin 14.2 g/dL 13.0-1 7.7 Not Available [facility] ([facility]) [address] [place], [address], 09/22/2022 21:08:06 09/22/19 23 09/22/2022 CBC WITH DIFFE RENTI AL/PL ATELE T hematocrit 46.5 % 37.5-5 1.0 Not Available [facility] ([facility]) [address] [facility], [place], [address], 09/22/2022 21:08:06 09/22/19 23 09/22/2022 CBC WITH DIFFE RENTI AL/PL ATELE T MCV 91 fL 79-97 Not Available [facility] ([facility]) [address] [place], [address], 09/22/2022 21:08:06 09/22/19 23 09/22/2022 CBC WITH DIFFE RENTI AL/PL ATELE T MCH 27.7 pg 26.6-3 3.0 Not Available [facility] ([facility]) [address] [place], [address], 09/22/2022 21:08:06 09/22/19 23 09/22/2022 CBC WITH DIFFE RENTI AL/PL ATELE T MCHC 30.5 g/dL 31.5-3 5.7 below low normal Not Available [facility] ([facility]) [address] [place], [address], 09/22/2022 21:08:06 09/22/19 23 09/22/2022 CBC WITH DIFFE RENTI AL/PL ATELE T RDW 13.3 % 11.6-1 5.4 Not Available [facility] ([facility]) [address] [facility], [place], [address], 09/22/2022 21:08:06 09/22/19 23 09/22/2022 CBC WITH DIFFE RENTI AL/PL ATELE T platelets 283 x10e3 /uL 150-45 0 Not Available [facility] ([facility]) [address] [facility], [place], [address], 09/22/2022 21:08:06 09/22/19 23 09/22/2022 CBC WITH DIFFE RENTI AL/PL ATELE T neutrophils 64 % notest ab. Not Available [facility] ([facility]) [address] [facility], [place], [address], 09/22/2022 21:08:06 09/22/19 23 09/22/2022 CBC WITH DIFFE RENTI AL/PL ATELE T lymphs 19 % notest ab. Not Available [facility] ([facility]) [address] [facility], [place], [address], 09/22/2022 21:08:06 09/22/19 23 09/22/2022 CBC WITH DIFFE RENTI AL/PL ATELE T monocytes 9 % notest ab. Not Available [facility] ([facility]) [address] [facility], [place], [address], 09/22/2022 21:08:06 09/22/19 23 09/22/2022 CBC WITH DIFFE RENTI AL/PL ATELE T eos 6 % notest ab. Not Available [facility] ([facility]) [address] [facility], [place], [address], 09/22/2022 21:08:06 09/22/19 23 09/22/2022 CBC WITH DIFFE RENTI AL/PL ATELE T basos 1 % notest ab. Not Available [facility] ([facility]) [address] [facility], [place], [address], 09/22/2022 21:08:06 09/22/19 23 09/22/2022 CBC WITH DIFFE RENTI AL/PL ATELE T neutrophils (absolute) 4.2 x10e3 /uL 1.4-7. 0 Not Available [facility] ([facility]) [address] [facility], [place], [address], 09/22/2022 21:08:06 09/22/19 23 09/22/2022 CBC WITH DIFFE RENTI AL/PL ATELE T lymphs (absolute) 1.3 x10e3 /uL 0.7-3. 1 Not Available [facility] ([facility]) [address] [facility], [place], [address], 09/22/2022 21:08:06 09/22/19 23 09/22/2022 CBC WITH DIFFE RENTI AL/PL ATELE T monocytes(ab solute) 0.6 x10e3 /uL 0.1-0. 9 Not Available [facility] ([facility]) [address] [facility], [place], [address], 09/22/2022 21:08:06 09/22/19 23 09/22/2022 CBC WITH DIFFE RENTI AL/PL ATELE T eos (absolute) 0.4 x10e3 /uL 0.0-0. 4 Not Available [facility] ([facility]) [address] [place], [address], 09/22/2022 21:08:06 09/22/19 23 09/22/2022 CBC WITH DIFFE RENTI AL/PL ATELE T baso (absolute) 0.1 x10e3 /uL 0.0-0. 2 Not Available [facility] ([facility]) [address] [place], [address], 09/22/2022 21:08:06 09/22/19 23 09/22/2022 CBC WITH DIFFE RENTI AL/PL ATELE T immature granulocytes 1 % notest ab. Not Available [facility] ([facility]) [address] [place], [address], 09/22/2022 21:08:06 09/22/19 23 09/22/2022 CBC WITH DIFFE RENTI AL/PL ATELE T immature grans (abs) 0.1 x10e3 /uL 0.0-0. 1 Not Available [facility] ([facility]) [address] [place], [address], 09/22/2022 21:08:06 09/22/19 23 09/22/2022 HEMOG LOBIN A1C hemoglobin A1C 6.1 % 4.8-5. 6 above high normal Predi abete s: 5.7 - 6.4 Diabe lizzy: >6.4 Glyce jay jay contr ol for adult s with diabe lizzy: <7.0 Not Available [facility] ([facility]) [address] [place], [address], 09/22/2022 21:08:05 06/11/19 25 06/12/2024 LIPID PANEL cholesterol, total 199 mg/dL 100-19 9 Not Available [facility] ([facility]) [address] [place], [address], 06/12/2024 08:24:19 06/11/19 25 06/12/2024 LIPID PANEL triglyceride s 90 mg/dL 0-149 Not Available [facility] ([facility]) [address] [place], [address], 06/12/2024 08:24:19 06/11/19 25 06/12/2024 LIPID PANEL HDL cholesterol 53 mg/dL >39 Not Available [facility] ([facility]) [address] [place], [address], 06/12/2024 08:24:19 06/11/19 25 06/12/2024 LIPID PANEL VLDL cholesterol samuel 16 mg/dL 5-40 Not Available [facility] ([facility]) [address] [place], [address], 06/12/2024 08:24:19 06/11/19 25 06/12/2024 LIPID PANEL LDL chol calc ([facility]) 130 mg/dL 0-99 above high normal Not Available [facility] ([facility]) [address] [place], [address], 06/12/2024 08:24:19 06/11/19 25 06/12/2024 COMP. METAB OLIC PANEL (14) glucose 93 mg/dL 70-99 Not Available [facility] ([facility]) [address] [place], [address], 06/12/2024 08:24:21 06/11/19 25 06/12/2024 COMP. METAB OLIC PANEL (14) BUN 11 mg/dL 8-27 Not Available [facility] ([facility]) [address] [place], [address], 06/12/2024 08:24:21 06/11/19 25 06/12/2024 COMP. METAB OLIC PANEL (14) creatinine 0.62 mg/dL 0.76-1 .27 below low normal Not Available [facility] ([facility]) [address] [place], [address], 06/12/2024 08:24:21 06/11/19 25 06/12/2024 COMP. METAB OLIC PANEL (14) eGFR 105 mL/mi n/1.7 3 >59 Not Available [facility] ([facility]) [address] [place], [address], 06/12/2024 08:24:21 06/11/19 25 06/12/2024 COMP. METAB OLIC PANEL (14) BUN/creatini ne ratio 18 10-24 Not Available [facility] ([facility]) [address] [place], [address], 06/12/2024 08:24:21 06/11/19 25 06/12/2024 COMP. METAB OLIC PANEL (14) sodium 140 mmol/ L 134-14 4 Not Available [facility] ([facility]) [address] [place], [address], 06/12/2024 08:24:21 06/11/19 25 06/12/2024 COMP. METAB OLIC PANEL (14) potassium 4.4 mmol/ L 3.5-5. 2 Not Available [facility] ([facility]) [address] [place], [address], 06/12/2024 08:24:21 06/11/19 25 06/12/2024 COMP. METAB OLIC PANEL (14) chloride 99 mmol/ L 96-106 Not Available [facility] ([facility]) [address] [place], [address], 06/12/2024 08:24:21 06/11/19 25 06/12/2024 COMP. METAB OLIC PANEL (14) carbon dioxide, total 26 mmol/ L 20-29 Not Available [facility] ([facility]) [address] [place], [address], 06/12/2024 08:24:21 06/11/19 25 06/12/2024 COMP. METAB OLIC PANEL (14) calcium 9.3 mg/dL 8.6-10 .2 Not Available [facility] ([facility]) [address] [place], [address], 06/12/2024 08:24:21 06/11/19 25 06/12/2024 COMP. METAB OLIC PANEL (14) protein, total 7.7 g/dL 6.0-8. 5 Not Available [facility] ([facility]) [address] [place], [address], 06/12/2024 08:24:21 06/11/19 25 06/12/2024 COMP. METAB OLIC PANEL (14) albumin 3.8 g/dL 3.9-4. 9 below low normal Not Available [facility] ([facility]) [address] [facility] [place], [address], 06/12/2024 08:24:21 06/11/19 25 06/12/2024 COMP. METAB OLIC PANEL (14) globulin, total 3.9 g/dL 1.5-4. 5 Not Available [facility] ([facility]) [address] [facility] [place], [address], 06/12/2024 08:24:21 06/11/19 25 06/12/2024 COMP. METAB OLIC PANEL (14) bilirubin, total 0.3 mg/dL 0.0-1. 2 Not Available [facility] ([facility]) [address] [place], [address], 06/12/2024 08:24:21 06/11/19 25 06/12/2024 COMP. METAB OLIC PANEL (14) alkaline phosphatase 113 IU/L 44-121 Not Available [facility] ([facility]) [address] [facility] [place], [address], 06/12/2024 08:24:21 06/11/19 25 06/12/2024 COMP. METAB OLIC PANEL (14) AST (SGOT) 15 IU/L 0-40 Not Available [facility] ([facility]) [address] [facility] [place], [address], 06/12/2024 08:24:21 06/11/19 25 06/12/2024 COMP. METAB OLIC PANEL (14) ALT (SGPT) 9 IU/L 0-44 Not Available [facility] ([facility]) [address] [facility] [place], [address], 06/12/2024 08:24:21 06/11/19 25 06/12/2024 URINA LYSIS , ROUTI NE specific gravity 1.013 1.005- 1.030 Not Available [facility] ([facility]) [address] [place], [address], 06/12/2024 08:24:22 06/11/1906/12/2024 URINA LYSIS , ROUTI NE pH 6.0 5.0-7. 5 Not Available [facility] ([facility]) [address] [place], [address], 06/12/2024 08:24:22 06/11/19 25 06/12/2024 URINA LYSIS , ROUTI NE urine-color YELLOW yellow Not Available [facility] ([facility]) [address] [place], [address], 06/12/2024 08:24:22 06/11/1906/12/2024 URINA LYSIS , ROUTI NE appearance CLEAR clear Not Available [facility] ([facility]) [address] [place], [address], 06/12/2024 08:24:22 06/11/19 25 06/12/2024 URINA LYSIS , ROUTI NE WBC esterase NEGATI VE negati ve Not Available [facility] ([facility]) [address] [place], [address], 06/12/2024 08:24:22 06/11/19 25 06/12/2024 URINA LYSIS , ROUTI NE protein NEGATI VE negati ve/tra ce Not Available [facility] ([facility]) [address] [place], [address], 06/12/2024 08:24:22 06/11/1906/12/2024 URINA LYSIS , ROUTI NE glucose NEGATI VE negati ve Not Available [facility] ([facility]) [address] [place], [address], 06/12/2024 08:24:22 06/11/19 25 06/12/2024 URINA LYSIS , ROUTI NE ketones NEGATI VE negati ve Not Available [facility] ([facility]) [address] [facility], [place], [address], 06/12/2024 08:24:22 06/11/1906/12/2024 URINA LYSIS , ROUTI NE occult blood NEGATI VE negati ve Not Available [facility] ([facility]) [address] [facility], [place], [address], 06/12/2024 08:24:22 06/11/1906/12/2024 URINA LYSIS , ROUTI NE bilirubin NEGATI VE negati ve Not Available [facility] ([facility]) [address] [facility], [place], [address], 06/12/2024 08:24:22 06/11/1906/12/2024 URINA LYSIS , ROUTI NE urobilinogen ,semi-qn 0.2 mg/dL 0.2-1. 0 Not Available [facility] ([facility]) [address] [facility], [place], [address], 06/12/2024 08:24:22 06/11/1906/12/2024 URINA LYSIS , ROUTI NE nitrite, urine NEGATI VE negati ve Not Available [facility] ([facility]) [address] [place], [address], 06/12/2024 08:24:22 06/11/1906/12/2024 URINA LYSIS , ROUTI NE microscopic examination COMMEN T Micro scopi c not indic ated and not perfo rmed. Not Available [facility] ([facility]) [address] [place], [address], 06/12/2024 08:24:22 06/11/1906/12/2024 CBC WITH DIFFE RENTI AL/PL ATELE T WBC 7.4 x10e3 /uL 3.4-10 .8 Not Available [facility] [facility]) [address] [place], [address], 06/12/2024 08:24:24 06/11/1906/12/2024 CBC WITH DIFFE RENTI AL/PL ATELE T RBC 4.65 x10e6 /uL 4.14-5 .80 Not Available [facility] ([facility]) [address] [place], [address], 06/12/2024 08:24:24 06/11/19 25 06/12/2024 CBC WITH DIFFE RENTI AL/PL ATELE T hemoglobin 14.3 g/dL 13.0-1 7.7 Not Available [facility] ([facility]) [address] [place], [address], 06/12/2024 08:24:24 06/11/1906/12/2024 CBC WITH DIFFE RENTI AL/PL ATELE T hematocrit 43.2 % 37.5-5 1.0 Not Available [facility] ([facility]) [address] [place], [address], 06/12/2024 08:24:24 06/11/1906/12/2024 CBC WITH DIFFE RENTI AL/PL ATELE T MCV 93 fL 79-97 Not Available [facility] ([facility]) [address] [place], [address], 06/12/2024 08:24:24 06/11/1906/12/2024 CBC WITH DIFFE RENTI AL/PL ATELE T MCH 30.8 pg 26.6-3 3.0 Not Available [facility] ([facility]) [address] [place], [address], 06/12/2024 08:24:24 06/11/19 25 06/12/2024 CBC WITH DIFFE RENTI AL/PL ATELE T MCHC 33.1 g/dL 31.5-3 5.7 Not Available [facility] ([facility]) [address] [place], [address], 06/12/2024 08:24:24 06/11/19 25 06/12/2024 CBC WITH DIFFE RENTI AL/PL ATELE T RDW 12.0 % 11.6-1 5.4 Not Available [facility] ([facility]) [address] [facility], [place], [address], 06/12/2024 08:24:24 06/11/19 25 06/12/2024 CBC WITH DIFFE RENTI AL/PL ATELE T platelets 335 x10e3 /uL 150-45 0 Not Available [facility] ([facility]) [address] [facility], [place], [address], 06/12/2024 08:24:24 06/11/19 25 06/12/2024 CBC WITH DIFFE RENTI AL/PL ATELE T neutrophils 64 % notest ab. Not Available [facility] ([facility]) [address] [facility], [place], [address], 06/12/2024 08:24:24 06/11/19 25 06/12/2024 CBC WITH DIFFE RENTI AL/PL ATELE T lymphs 17 % notest ab. Not Available [facility] ([facility]) [address] [facility], [place], [address], 06/12/2024 08:24:24 06/11/1906/12/2024 CBC WITH DIFFE RENTI AL/PL ATELE T monocytes 10 % notest ab. Not Available [facility] ([facility]) [address] [facility], [place], [address], 06/12/2024 08:24:24 06/11/19 25 06/12/2024 CBC WITH DIFFE RENTI AL/PL ATELE T eos 8 % notest ab. Not Available [facility] ([facility]) [address] [facility], [place], [address], 06/12/2024 08:24:24 06/11/1906/12/2024 CBC WITH DIFFE RENTI AL/PL ATELE T basos 1 % notest ab. Not Available [facility] ([facility]) [address] [place], [address], 06/12/2024 08:24:24 06/11/19 25 06/12/2024 CBC WITH DIFFE RENTI AL/PL ATELE T neutrophils (absolute) 4.7 x10e3 /uL 1.4-7. 0 Not Available [facility] ([facility]) [address] [place], [address], 06/12/2024 08:24:24 06/11/1906/12/2024 CBC WITH DIFFE RENTI AL/PL ATELE T lymphs (absolute) 1.2 x10e3 /uL 0.7-3. 1 Not Available [facility] ([facility]) [address] [place], [address], 06/12/2024 08:24:24 06/11/19 25 06/12/2024 CBC WITH DIFFE RENTI AL/PL ATELE T monocytes(ab solute) 0.8 x10e3 /uL 0.1-0. 9 Not Available [facility] ([facility]) [address] [place], [address], 06/12/2024 08:24:24 06/11/19 25 06/12/2024 CBC WITH DIFFE RENTI AL/PL ATELE T eos (absolute) 0.6 x10e3 /uL 0.0-0. 4 above high normal Not Available [facility] ([facility]) [address] [place], [address], 06/12/2024 08:24:24 06/11/19 25 06/12/2024 CBC WITH DIFFE RENTI AL/PL ATELE T baso (absolute) 0.0 x10e3 /uL 0.0-0. 2 Not Available [facility] ([facility]) [address] [place], [address], 06/12/2024 08:24:24 06/11/1906/12/2024 CBC WITH DIFFE RENTI AL/PL ATELE T immature granulocytes 0 % notest ab. Not Available [facility] ([facility]) [address] [facility], [place], [address], 06/12/2024 08:24:24 06/11/1906/12/2024 CBC WITH DIFFE RENTI AL/PL ATELE T immature grans (abs) 0.0 x10e3 /uL 0.0-0. 1 Not Available [facility] ([facility]) [address] [facility], [place], [address], 06/12/2024 08:24:24 06/11/1906/12/2024 NT-OH OBNP nt-probnp 99 pg/mL 0-376 The follo [...] enden t 300 pg/mL Not Available [facility] ([facility]) [address] [facility], [place], [address], 06/13/2024 06:25:12 06/11/19 25 06/12/2024 DRUG PROFI LE,UR ,9 DRUGS ,BUND amphetamines , urine NEGATI VE NG/mL cutoff =1000 Amphe tamin e test inclu lennox Amphe tamin e and Metha mphet amine . Not Available [facility] ([facility]) [address] [place], [address], 06/13/2024 06:25:13 06/11/19 25 06/12/2024 DRUG PROFI LE,UR ,9 DRUGS ,BUND barbiturate NEGATI VE NG/mL cutoff =300 Not Available [facility] ([facility]) [address] [place], [address], 06/13/2024 06:25:13 06/11/19 25 06/12/2024 DRUG PROFI LE,UR ,9 DRUGS ,BUND benzodiazepi martin NEGATI VE NG/mL cutoff =300 Not Available [facility] ([facility]) [address] [place], [address], 06/13/2024 06:25:13 06/11/19 25 06/12/2024 DRUG PROFI LE,UR ,9 DRUGS ,BUND cannabinoid NEGATI VE NG/mL cutoff =50 Not Available [facility] ([facility]) [address] [place], [address], 06/13/2024 06:25:13 06/11/19 25 06/12/2024 DRUG PROFI LE,UR ,9 DRUGS ,BUND cocaine (metab.) NEGATI VE NG/mL cutoff =300 Not Available [facility] ([facility]) [address] [place], [address], 06/13/2024 06:25:13 06/11/19 25 06/12/2024 DRUG PROFI LE,UR ,9 DRUGS ,BUND opiates NEGATI VE NG/mL cutoff =300 Opiat e test inclu lennox Codei ne and Morph ine only. Not Available [facility] ([facility]) [address] [place], [address], 06/13/2024 06:25:13 06/11/19 25 06/12/2024 DRUG PROFI LE,UR ,9 DRUGS ,BUND phencyclidin e NEGATI VE NG/mL cutoff =25 Not Available [facility] ([facility]) [address] [facility], [place], [address], 06/13/2024 06:25:13 06/11/1906/12/2024 DRUG PROFI LE,UR ,9 DRUGS ,BUND methadone screen, urine NEGATI VE NG/mL cutoff =300 Not Available [facility] ([facility]) [address] [facility], [place], [address], 06/13/2024 06:25:13 06/11/19 25 06/12/2024 DRUG PROFI LE,UR ,9 DRUGS ,BUND propoxyphene , urine NEGATI VE NG/mL cutoff =300 Eff ectiv e July 16, 2024, this test will be disco ntinu ed. Pleas e conta ct your [facility] r[facility] repre senta tive for sugge sted repla cemen t test optio ns. Not Available [facility] ([facility]) [address] [facility], [place], [address], 06/13/2024 06:25:13 06/11/1906/12/2024 TSH TSH 3.490 uIU/m L 0.450- 4.500 Not Available [facility] ([facility]) [address] [facility], [place], [address], 06/13/2024 06:25:14 06/11/1906/12/2024 PROST ATE-S PECIF IC [...] ana laura portillo se. Not Available [facility] ([facility]) [address] [facility], [place], [address], 06/13/2024 06:25:15 06/11/19 25 06/12/2024 VITAM IN [...] Lyudmila yang [place]: [facility] . 2. Maris catalan MF, Pepe mata [place], Narciso off-F errar i ORTEGA, et al. Evalu ation , treat ment, and preve ntion of vitam in D defic iency : an Endoc rine Socie ty clini samuel pract ice guide line. JCEM. 2010; 96(7) :1911 -30. Not Available [facility] ([facility]) [address] [facility], [place], [address], 06/13/2024 06:25:16 02/12/20 21 02/10/2021 XR, ankle EXAMIN ATION: BILATE RAL FOOT AND ANKLE ACCESS ION: [id number] , [id number] EXAM DATE: 2020 3:01 PM REASON FOR EXAM: [id number] 009: Arthra lgia of the ankle and/or [...] BY: EDNA MONTAGUE, CORNELIO Date: 2020 08:49 [facility] ([facility]) [address] [place] [address], [address], 02/11/2021 15:32:01 02/12/20 21 02/10/2021 XR, foot EXAMIN ATION: BILATE RAL FOOT AND ANKLE ACCESS ION: [id number] , [id number] EXAM DATE: 2020 3:01 PM REASON FOR EXAM: [id number] 009: Arthra lgia of the ankle and/or [...] BY: EDNA MONTAGUE, CORNELIO Date: 2020 08:49 [facility] ([facility]) [address] [place] [address], [address], 02/11/2021 15:32:01 06/28/19 22 06/27/2021 XR, chest , 2 view No observ ation record ed. [address] [facility], [place], [address], 07/06/2021 09:34:50 05/07/19 23 05/07/2022 XR, chest , 2 view No observ ation record ed. [address], [place], [address], 05/10/2022 10:54:17 05/07/19 23 05/07/2022 XR, chest , 2 view No observ ation record ed. [address], [place], [address], 05/10/2022 10:54:26 06/09/19 23 06/09/2022 compl ete PFT w/ post [facility] hodil ator selam metry * No observ ation record ed. [email or web address] [place] [address] [address], [place], [address], 06/10/2022 11:36:06 12/09/19 23 12/08/2022 XR, chest , 2 view No observ ation record ed. [address], [place], [address], 12/09/2022 13:50:26 12/09/19 23 12/08/2022 CT, head + brain , w/o contr ast No observ ation record ed. [address], [place], [address], 12/09/2022 13:50:50 12/10/19 23 12/09/2022 US, [facility] ardio gram No observ ation record ed. [address], [place], [address], 12/09/2022 13:51:24 12/10/19 23 12/08/2022 CT, chest , w/o contr ast No observ ation record ed. [address], [place], [address], 12/09/2022 13:52:10 01/04/20 24 01/04/2024 CT, brain , w/o contr ast No observ ation record ed. [address], [place], [address], 06/11/2024 14:16:13 01/04/20 24 01/04/2024 XR, facia l bones No observ ation record ed. [address], [place], [address], 06/11/2024 14:17:13 08/04/19 25 08/03/2024 XR, chest No observ ation record ed. [address], [place], [address], 08/03/2024 18:44:31 Result Notes None recorded. Problems Name Problem SNOMED Code Status Onset Date Resolution Date Notes Provider Name and Address Organization Details Recorded Time Chronic obstructi ve pulmonary disease 05813910 Active 2019 Not Available [facility] 4 15:45:45 Congestiv e heart failure 84601843 Active 2019 Not Available [facility] 4 15:45:45 Hypertens juan disorder 95586161 Active 2019 Not Available [facility] 4 15:45:45 Screening for malignant neoplasm of colon Active 2019 Not Available [facility] 4 15:45:45 Harmful pattern of use of opioid 3165589 Active 2019 per ER note on 03/18/20 he snorts and injects fentanyl Not Available [facility] 4 15:45:45 [place] m 2562253 Active 2020 Not Available [facility] 4 15:45:45 Obesity 657969938 Active 2022 Not Available [facility] 4 15:45:45 Fentanyl dependenc e 424351973 Active 2022 Not Available [facility] 4 15:45:45 Dependenc e on supplemen jack oxygen 07690033252 7 Active 2024 Dominick Kennedy MD Attn: Accounting ,[address] [place], [address] , [facility] 5 19:32:23 History of nicotine dependenc e Active 2024 Dominick Kennedy MD Attn: Accounting ,[address] [place], [address] , [facility] 5 19:33:53 Tetanus vaccinati on declined by patient 847418054 Active 2024 Dominick Kennedy MD Attn: Accounting ,[address] [place], [address] , [facility] 5 19:33:57 Problem Notes None recorded. Procedures Surgical History Date Name Laterality Status Provider Name and Address Organization Details Recorded Time 5 Diabetic Foot Exam completed Dominick Kennedy MD Attn: Accounting,[address] [place], [address], [facility] 06/11/2024 19:37:15 1 Routine Foot Care completed CAROL SARKAR DPM [address] [place], [address], [facility] 02/10/2021 17:00:45 7 lobectomy of lower lobe of right lung completed JOHN TATE NP [address] [place], [address], [facility] 08/24/2019 11:49:34 Oral surgery procedure completed Dominick Kennedy MD Attn: Accounting,[address] [facility], [place], [address], [facility] 06/11/2024 14:34:21 Imaging Results Imaging Date Name Status LastModified by Organization Details LastModified Time 02/10/2021 XR, ankle completed shajiarry [facility] [address] [place], [address], 02/11/2021 15:32:01 02/10/2021 XR, foot completed fharry [facility] [address] [place], [address], 02/11/2021 15:32:01 06/27/2021 XR, chest, 2 view completed [address], [address], 07/06/2021 09:34:50 05/07/2022 XR, chest, 2 view completed [address], [address], 05/10/2022 10:54:17 05/07/2022 XR, chest, 2 view completed [address], [address], 05/10/2022 10:54:26 06/09/2022 complete PFT w/ post bronchodilator spirometry* completed [address] [address], [place], [address], 06/10/2022 11:36:06 12/08/2022 XR, chest, 2 view [address], [address], 12/09/2022 13:50:26 12/08/2022 CT, head + brain, w/o contrast completed [address], [address], 12/09/2022 13:50:50 12/09/2022 US, echocardiogram completed [address], [address], 12/09/2022 13:51:24 12/08/2022 CT, chest, w/o contrast completed [address], [address], 12/09/2022 13:52:10 01/04/2024 CT, brain, w/o contrast completed [address] [address], [place], [address], 06/11/2024 14:16:13 01/04/2024 XR, facial bones completed [address], [address], 06/11/2024 14:17:13 08/03/2024 XR, chest completed [address], [address], 08/03/2024 18:44:31 Procedure Notes None recorded. Medical Equipment None [...] n soln USE 3 ML VIA NEBULIZER FOUR TIMES DAILY DIRECTED active Not Available Not Available [...] HFA 90 mcg/actuati on aerosol inhaler INHALE 1 PUFF BY MOUTH EVERY 4 HOURS NEEDED active Not Available Not Available No t [...] Available Not Available Not Available Afluria Quad [id number] (PF) 60 mcg (15 mcg x 4)/0.5 [...] Updated DateTime 1 182.88 cm 33.6 kg/m2 043615. 19 g 97 /min 97.7 [degF] 0 115 mm[Hg] 64 mm[Hg] Ely Eisenberg LPN [facility] 1 14:43:54 Date Recorded Body height Body mass index (BMI) Body weight Heart rate Oxygen saturation Oxygen saturation in Arterial blood by Pulse oximetry Systolic blood pressure Diastolic blood pressure Provider Name and Address Organization Details Last Updated DateTime 2 182.88 cm 34.9 kg/m2 246651. 24 g 107 /min 96 % 96 % 110 mm[Hg] 68 mm[Hg] VICTORIA SPARKS Attn: Gentry g,[address] [place], [address], [facility] 2 15:31:32 Date Recorded Body height Body mass index (BMI) Body weight Systolic blood pressure Diastolic blood pressure Provider Name and Address Organization Details Last Updated DateTime 05/20/2022 182.88 cm 34.2 kg/m2 107093.0 8 g 130 mm[Hg] 84 mm[Hg] Carolina Babin MA [facility] 3 15:34:10 Date Recorded Heart rate Oxygen saturation Oxygen saturation in Arterial blood by Pulse oximetry Provider Name and Address Organization Details Last Updated DateTime 05/20/2022 100 /min 97 % 97 % VICTORIA SPARKS Attn: Accounting, [address] [place], [address], [facility] 05/22/2022 08:58:57 Date Recorded Body height Body mass index (BMI) Body weight Heart rate Oxygen saturation Oxygen saturation in Arterial blood by Pulse oximetry Systolic blood pressure Diastolic blood pressure Provider Name and Address Organization Details Last Updated DateTime 3 182.88 cm 35.7 kg/m2 405094. 89 g 103 /min 94 % 94 % 134 mm[Hg] 86 mm[Hg] Carolina Babin MA [facility] 3 14:10:00 Date Recorded Body height Body mass index (BMI) Body weight Heart rate Oxygen saturation Oxygen saturation in Arterial blood by Pulse oximetry Inhaled oxygen flow rate Respiratory rate Body temperature Systolic blood pressure Diastolic blood pressure Provider Name and Address Organization Details Last Updated DateTime 5 182.88 cm 34.7 kg/m2 043352. 65 g 104 /min 92 % 92 % 4 L/min 18 /min 98.5 [degF] 126 mm[Hg] 60 mm[Hg] Tuyet Chou [place] - [facility] 14:14:20 Social History Question Answer Notes LastModified by Organizat ion Details LastModified Time Tobacco Smoking Status Current Every Day Smoker Gina Murphy CMA null, [place] - [facility] 09/05/2018 15:01:04 What Is Your Level Of [...] Pressure Y Atrial Fibrillation N Hyperthyroidism N Thyroid Problems N Kidney or Bladder Problems N GI Problems N Depression N COPD N Blood Clots N Hypothyroidism N Skin Problems N Osteoporosis/Osteopenia N Anemia N Heart Attack (ME) N Anxiety Disorder N Diabetes N Muscle, Joint, or Bone Problems N Seizures/Epilepsy N Tuberculosis N Acid Reflux (GERD) N Hyperlipidemia Y Cancer N Stroke N Asthma N Allergies N Sleep Apnea N GERD/Reflux N High Cholesterol N Hepatitis N Liver Disease N Heart Disease Y Headaches N Hypertension Y Heart Failure Y Osteoporosis N [...] [facility] 09/10/2020 16:31:25 Pneumococcal conjugate PCV20, polysaccharide GUW057 conjugate, adjuvant, PF 3 completed VICTORIA SPARKS Attn: Accounting,[address] [facility], [place], [address], [place] - [facility] 09/30/2022 13:52:31 Past Encounters Encounter ID Performer Location Encounter Start Date Encounter Closed Date Diagnosis/Indication Diagnosis SNOMED-CT Code Diagnosis ICD10 Code Diagnosis Note [id number] Any Martinez [facility] [address] [facility] [address] [place] [address] 03/16/2018 16:07:50 03/17/2018 14:42:04 Chronic obstructive pulmonary disease 76041610 J44.9 Chronic lung disease, likely COPD Patient [...] evaluate lung functional status Congestive heart failure 14652135 I50.9 Heart failure with preserved ejection fraction [...] to be on chronic Lasix dose Cellulitis 314251490 L03 .90 LE cellulitis , subsequent encounter, [...] to complete course as [facility] [id number] [facility] [address] [facility] [address] [place] [address] 09/05/2018 14:52:54 09/06/2018 10:18:02 Chronic obstructive pulmonary disease 55915183 J44.9 COPD Patient likely has COPD as he had no history of childhood asthma and has approximat kamran 1 pack/day 20-year history of smoking and citing some occasional shortness of breath. -Albuterol as needed shortness of breath - Pulm referral for PFTs Neck pain 86352792 M54.2 Neck pain Patient fallen off his [...] - Cervical neck x-ray Low back pain 466216872 M54.5 Back pain Patient endorsed chronic history [...] spine - Tylenol scheduled - Ibuprofen scheduled [id number] VICTORIA SPARKS On license of [facility] [address] [place] [address] 04/27/2019 14:29:14 04/30/2019 09:34:07 Numbness of hand 315940677 R20.0 Chronic ob structive pulmonary disease 78798029 J44.9 COPD Patient likely has COPD as he had no history of childhood asthma and has approximat kamran 1 pack/day 30-year history of smoking and citing some occasional shortness of breath. -Albuterol as needed shortness of breath - LDCT as 53 with over 30 pack year smoker- stop smoking Neck pain 43655375 M54.2 Neck pain Patient fallen off his couch over 9 months ago which has resulted in mild neck pain and some persistent forward flexion 2/2 pain. Physical exam today nothing concerning for significan t fracture. never got xray ordered by last provider. - Tylenol scheduled - Ibuprofen schedule Low back pain 390676668 M54.5 Patient endorsed chronic history of low [...] appreciate d - Ibuprofen scheduled Heart failure 98906615 I 50.9 patient has a history of heart failure. Sending to cardiology . Headache 83702868 R51 patient endorses 9 months of headaches after falling off couch. Headaches are occipital and dull in nature. They happen everyday. He has the worst headache last week but did not seek medical help despite telling him to go. - educated on headahces and going to ER if worst headache, develops weakness on one side, slurring words Essential hypertension 16999044 I10 BP 130/80, WNLAdvised to check BP regularly with a goal of <140/90, if BP consistent ly >140/90, advised to contact clinic Discussed DASH diet Advised 30 minutes of exercise minimum daily Advised tobacco, alcohol, caffeine all increase BP Advised goal for BP is <140/90 Hypercholesterolemia 136 18072 E78.00 patient given labs as he is not fasting today. Prediabetes 656381896 R7 3.03 Chest pain on exertion 09242865 R07.89 patient has chest pain on exertions. [...] away. Screening for malignant neoplasm of colon 649739347 Z12.11 Has never had a colonoscop y. Patient agrees to have this done. [id number] Jam Babin MA On license of [facility] [address] [place] [address] 05/02/2019 13:48:25 05/08/2019 11:51:44 Hyperlipidemia 20591683 E78.5 [id number] VICTORIA SPARKS On license of [facility] [address] [place] [address] 06/28/2019 09:58:09 06/29/2019 09:37:49 Abscess 654245040 L02.91 patient has pain in for x 3 days. On exam patient has abscess that has been draining some. He refused to let me drain it here. Will start clindamyci n to cover for MRSA and pseudomona s. kristin [place] apache around area and asked patient to report to ER if redness continues to spread. Patient is to go home and apply warm compress to allow area to continue draining. He is to f/u next week in infection persists and needs xray to asess for bone infection. Essential hypertension 69660361 I10 BP 122/96, not WNL, did not take all medication todayAdvis ed to check BP regularly with a goal of <140/90, if BP consistent ly >140/90, advised to contact clinic Discussed DASH diet Advised 30 minutes of exercise minimum daily Advised tobacco, alcohol, caffeine all increase BP Advised goal for BP is <140/90 Heart failure 60318341 I 50.9 patient has a history of heart failure. He is on appropriat e medication s. - given informatio n on cardiologi st- limit sodium- excercise 30 mins 5x week- DASH diet- avoid alcohol and other drugs- stop smoking Chronic ob structive pulmonary disease 89482899 J44.9 COPD Patient likely has COPD as he had no history of childhood asthma and has approximat kamran 1 pack/day 30-year history of smoking and citing some occasional shortness of breath. - Albuterol as needed shortness of breath - LDCT as 53 with over 30 pack year smoker- stop smoking Hypercholesterolemia 136 59448 E78.00 refill 05/01/19 TC 181, tri 90, HDL 44, LDL 119 - encouraged to watch red meats, fried food, fast food- excercise 30 mins 5x week- continue medication as prescribed [id number] VICTORIA SPARKS [facility] [address] [place] [address] 08/10/2019 12:11:05 08/10/2019 15:36:26 Abscess [id number] L02.91 patient has pain in for x 3 days. On exam patient has abscess that has been draining some. He refused to let me drain it here. Will start clindamyci n to cover for MRSA and pseudomona s. kristin [place] around area and asked patient to report to ER if redness continues to spread. Patient is to go home and apply warm compress to allow area to continue draining. He is to f/u next week in infection persists and needs xray to asess for bone infection. [id number] VICTORIA SPARKS [facility] [address] [place] [address] 08/10/2019 12:49:52 08/13/2019 10:11:58 Abscess [id number] L02.91 continues to have draining swollen foot. advised to go to ER as he has failed two rounds of antibiotic s. He did not go to ER last time we spoke. He may have osteomyeli tis and it needs to be ruled out. [id number] JOHN TATE NP [facility] [address] [place] [id number] 08/24/2019 08:02:25 09/17/2019 15:36:45 Screening for malignant neoplasm of colon 135248341 Z12.11 No FH or PMH of colon cancer of colon polyps Chronic ob structive pulmonary disease 40199424 J44.9 Managed in primary care Congestive heart failure 70077581 I50.9 Managed in primary care Hypertensive disorder 38 438601 I10 Managed in primary care [id number] VICTORIA SPARKS [facility] [address] [place] [address] 08/24/2019 09:26:17 08/27/2019 05:59:34 Acute injury of kidney [id number] 5750208 N17.9 Patient was found to have BLADE. Advised to stay hydrated and make appointmen t to have kidney check next week. Cellulitis 451220340 L03 .90 Patient did go to ER after being advised to do so. They ruled out osteomyeli tis and was released on bactrim 800-160 2 pills BID. He states his foot looks much better and erythema and swelling have improved. - finish abx- f/u if gets worse- keep wound clean [id number] VICTORIA SPARKS On license of [facility] [address] [place] [address] 05/27/2020 08:49:38 05/29/2020 20:06:02 Harmful pattern of use of opioid 3038922 F11.10 fentanyl injected and snorted Congestive heart failure 08792196 I50.9 Patient is non complaint and injecting [...] are low in sodium (such as Mrs. Barnett). When eating out, think about hidden sources of salt and sodium, such as salad dressings and soups. Ask for options low in salt and sodium. Choose meats and other foods that are low in saturated fat to help lower your cholestero l levels. Substance abuse 80113625 F19.10 Per ER note on 03/18 patient is injecting fentanyl, taking xanax from the street, using meth, and drinking 3-6 double shots of alcohol per day. Given detox number through [facility], instructed to go to ER 24 hours after last fentanyl. Plan is to do detox and f/u here for anxiety/de pression medication Alcoholism 2168064 F10.2 0 patient down to 3-6 double shots per day of alcohol. [id number] CORBIN Baltazar [address] [place] [address] 08/08/2020 11:58:39 08/11/2020 18:29:09 Administration of SARS-CoV-2 antigen vaccine 765981839 Z23 [id number] CORBIN Baltazar [address] [place] [address] 09/10/2020 14:07:36 09/11/2020 09:28:38 Administration of SARS-CoV-2 antigen vaccine 741147596 Z23 [id number] VICTORIA SPARKS On license of [facility] [address] [place] [address] 09/17/2020 15:28:41 09/22/2020 04:17:32 Cellulitis of left lower limb 7484456043 2673330 L03.116 Patient was admitted to [facility] for celulitis of left lower limb. He [...] ER. Will send to obtain records from [facility]. - Going to ER Chronic ob structive pulmonary disease 41444365 J44.9 COPD. need inhaler refilled. Patient likely has COPD as he had no history of childhood asthma and has approximat kamran 1 pack/day 30-year history of smoking and citing some occasional shortness of breath. - Albuterol as needed shortness of breath - LDCT as 53 with over 30 pack year smoker - stop smoking Heart failure 58061558 I 50.9 patient has a history of [...] alcohol and other drugs - stop smoking [id number] Rubina Vila MD On license of [facility] [address] [place] [address] 10/06/2020 16:59:33 10/10/2020 12:44:16 Smoker 87573515 F17.200 advised to quit smoking. patient will start cutting down on his own Alcoholism 4766676 F10.2 0 patient down to 3-6 double shots per day of alcohol and states he has not drank since out of hospital Hypertensive disorder 38 172074 I10 Patient bp elevated today. He was [...] is <140/90 Cellulitis of left lower limb 5474349737 2489631 L03.116 Patient was admitted at [facility] and completed three days and was discharged home with abx. He has just finished. Given number for wound care as he was referred out from hospital.- f/u 2 weeks- wound care- avoid fentynal, smoking to allow better healing- keep area clean Congestive heart failure 09480925 I50.9 Patient is non complaint and injecting [...] are low in sodium (such as Mrs. Barnett). When eating out, think about hidden sources of salt and sodium, such as salad dressings and soups. Ask for options low in salt and sodium. Choose meats and other foods that are low in saturated fat to help lower your cholestero l levels. Essential hypertension 00468767 I10 BP 122/96, not WNL, did not take all medication todayAdvis ed to check BP regularly with a goal of <140/90, if BP consistent ly >140/90, advised to contact clinic Discussed DASH diet Advised 30 minutes of exercise minimum daily Advised tobacco, alcohol, caffeine all increase BP Advised goal for BP is <140/90 Pulmonary hypertension 40969001 I27.20 Fentanyl dependence 4260 94490 F11.20 patient [facility] go [facility]. He agrees and will think about it. I let him know I cannot treat fentynal abuse with hydrocodon e. Patient understand s. Mixed anxi ety and depressive disorder 192406005 F41.8 Patient will be treated for anxiety in hopes of weaning him off xanax. He was again advised [facility] He will consider it. - advised counseling [...] f/u one month - call with questions [id number] VICTORIA SPARKS On license of [facility] [address] [place] [address] 01/06/2021 16:12:49 01/13/2021 12:22:20 Tinerin pedis 4823309 B35.3 Congestive heart failure 68733655 I50.9 Patient is non complaint and injecting [...] are low in sodium (such as Mrs. Barnett). When eating out, think about hidden sources of salt and sodium, such as salad dressings and soups. Ask for options low in salt and sodium. Choose meats and other foods that are low in saturated fat to help lower your cholestero l levels. Ingrowing nail 072737739 L60.0 patient had long ingrown toe nails on b/l feet Smoker 33152929 F17.200 advised to quit smoking. patient will start cutting down on his own Cellulitis of left lower limb 3254990594 8803116 L03.116 appointmen t for would clinic made for patient today for January 26 at 1pm. number and address given to patient . he NCNS in September. advised [facility] to call and cancel if he cannot make it.-f/u 2 weeks- wound care- avoid fentynal, smoking to allow better healing- keep area clean [id number] CAROL SARKAR DPM [facility] [address] [place] [address] 02/10/2021 14:28:32 03/17/2021 08:52:13 Bilateral atherosclerosis of arteries of lower limbs 5653061749 9007935 I70.203 Localized edema 01928992 4 R60.0 Ankle pain 994755372 M25 .579 Onychomycosis 841790318 B35.1 [place] - lesion 268038217 L84 Stasis francis matitis of lower limb due to chronic peripheral venous hypertension 383454098 I87.247 [id number] VICTORIA SPARKS On license of [facility] [address] [place] [address] 03/15/2022 14:57:28 03/18/2022 09:46:44 Hospital inpatient stay within past 30 days [id number] 106 Z76.89 - labs Screening for malignant neoplasm of respiratory tract 681568460 Z12.2 due for LDCT30+ pack year smoking hx Chronic ob structive pulmonary disease 75245017 J44.9 COPD. need inhaler refilled. using rescue [...] - stop smoking Chronic hepatitis C 1283 43290 B18.2 chronic hep C- lab- referral Pain of ri ght knee joint 5404206573 84144 M25.561 right knee pain post falling on it. Would like pain medication today but patient at risk of abuse due to alcoholism and fentanyl use. Edema of l ower extremity 582389189 R60.0 LE b/l edema with erythema. this is chronic Alcoholism 0346847 F10.2 0 patient down to 3-6 double shots per day of alcohol and states he has not drank since out of hospital HIV screening 159083846 Z11.4 Difficulty walking 74192 2002 R26.2 Patient having a hard time walking due to leg edema and recent knee injury. He is at risk for falling. He lives with and having hard moving and going to bathroom. Congestive heart failure 95526290 I50.9 non-compli ant with all medication s [...] are low in sodium (such as Mrs. Barnett). When eating out, think about hidden sources of salt and sodium, such as salad dressings and soups. Ask for options low in salt and sodium.Cho ose meats and other foods that are low in saturated fat to help lower your cholestero l levels. Fentanyl dependence 4260 58869 F11.20 patient advised to go to [facility] detox program. He agrees and will think about it. I let him know I cannot treat fentynal abuse with hydrocodon e. Patient understand s. Obesity 917436424 E66.9 Tachycardia 5103840 R00. 0 [id number] VICTORIA SPARKS On license of [facility] [address] [place] [address] 05/20/2022 15:27:30 05/26/2022 13:28:18 Stasis dermatitis 87038732 I87.2 Large ulcer on left lateral legpatient has it wrapped Prediabetes 092988772 R7 3.03 Intertrigo 35370269 L30. 4 on exam patient has erythema abdomen Congestive heart failure 60978144 I50.9 non-compli ant with all medication s [...] are low in sodium (such as Mrs. Barnett). When eating out, think about hidden sources of salt and sodium, such as salad dressings and soups. Ask for options low in salt and sodium.Cho ose meats and other foods that are low in saturated fat to help lower your cholestero l levels. Screening for malignant neoplasm of respiratory tract 951824990 Z12.2 due for LDCT30+ pack year smoking hx Chronic ob structive pulmonary disease 73530642 J44.9 COPD. need inhaler refilled. using rescue [...] - stop smoking Chronic hepatitis C 1283 14324 B18.2 Genotype 1bpatient has f/u with GI at [facility] on June 04, 2022 Pain of ri ght knee joint 6964384275 87059 M25.561 following ortho and received injection to knee this weekpatien t walking with cane and does use walker Edema of l ower extremity 105063729 R60.0 LE b/l edema with erythema. this is chronic Alcoholism 8029609 F10.2 0 states he has not drank since out of hospital Fentanyl dependence 4260 37795 F11.20 currently on suboxone treatment through [facility] Obesity 209608857 E66.9 BMI34.2 Insomnia 514514146 G47.0 0 [facility] asked for benzo and advised not take any benzo with seroquel [id number] VICTORIA SPARKS On license of [facility] [address] [place] [address] 09/21/2022 14:07:38 09/21/2022 15:00:28 Stasis dermatitis 64697078 I87.2 stopped going tow wound care, I didn't think I need them need recordsleg s are no longer draining, has scabs Prediabetes 802338846 R7 3.03 6.1 (09/2022) Congestive heart failure 56065400 I50.9 non-compli ant with all medication s [...] are low in sodium (such as Mrs. Barnett). When eating out, think about hidden sources of salt and sodium, such as salad dressings and soups. Ask for options low in salt and sodium.Cho ose meats and other foods that are low in saturated fat to help lower your cholestero l levels. Chronic ob structive pulmonary disease 67005524 J44.9 COPD. need inhaler refilled. Patient likely has COPD as he had no history of childhood asthma and has approximat kamran 1 pack/day 30-year history of smoking and citing some occasional shortness of breath. - Albuterol as needed shortness of breath - LDCT as 53 with over 30 pack year smoker (has not obtained yet) - stop smoking Chronic hepatitis C 1283 83751 B18.2 Genotype 1bpatient has f/u with GI at [facility] almost finished with treatment Edema of l ower extremity 905454938 R60.0 LE b/l edema with erythema. this is chronic Alcoholism 4826670 F10.2 0 two shots of [place] honey daily Fentanyl dependence 4260 39361 F11.20 currently on suboxone treatment through [facility] Obesity 550476969 E66.9 BMI35.7 Insomnia 152251370 G47.0 0 [facility]el [facility] asked for benzo and advised not take any benzo with seroquel Administra tion of pneumococcal vaccine 80635876 Z23 Essential hypertension 68566342 I10 BP 122/96, not WNL, did not take all medication todayAdvis ed to check BP regularly with a goal of <140/90, if BP consistent ly >140/90, advised to contact clinic Discussed DASH diet Advised 30 minutes of exercise minimum daily Advised tobacco, alcohol, caffeine all increase BP Advised goal for BP is <140/90 Hypertensive disorder 38 440034 I10 Patient bp elevated today. He was out of medication and is to come by this week for BP check. Will refill. Per hospital labs kidneys are stable. Advised to check BP regularly with a goal of <140/90, if BP consistent ly >140/90, advised to contact clinicDisc ussekimber BARNETT dietAdvise d weight loss and diet is best way to control BPAdvised 30 minutes of exercise minimum dailyAdvis ed tobacco, alcohol, caffeine all increase BPAdvised goal for BP is <140/90 [id number] Dominick Kennedy MD [facility] (Adult [facility] [address] [place] [address] 06/11/2024 13:49:06 06/13/2024 11:01:20 General examination of patient 917406223 Z00.01 Dependence on supplemental oxygen 7393848479 07 Z99.81 Impaired mobility 481880 05 Z74.09 He will benefit from a PMD to accomplish his ADLs Congestive heart failure 92721394 I50.9 Chronic ob structive pulmonary disease 24978600 J44.9 Essential hypertension 23792562 I10 Benign ess ential hypertension 1344958 I10 Chronic neck pain 517291 8280 107 M54.2 Tinea pedis 9677899 B35. 3 Dry skin dermatitis 2600 67314 L85.3 Screening for malignant neoplasm of prostate 061272642 Z12.5 Medication monitoring 39 6530748 Z51.81 History of nicotine dependence 6304156467 92039205 Z87.891 Tetanus va ccination declined by patient 017733776 Z28.21 Disorder o f lipid metabolism 067144598 E78.9 Health Concerns Section Related Observation LastModified by Organization Detai ls LastModified Time None Recorded Concern Status LastModified by Organization Details LastModified Time None Recorded Advance Directives Directive None Recorded Payers Encounter Date Sequence Insurance Name Policy Number Policy Hale Covered Member ID Hale Member ID Guarantor Name 02/10/2021 1 [facility] PRIOR TO 10/16/2020 (MEDICAID REPLACEMENT - HMO) Ozzy Ch [id number] Ozzy Ch 03/15/2022 1 [facility] ON OR AFTER 10/16/20 (MEDICAID REPLACEMENT - HMO) Ozzy Ch [id number] Ozzy Ch 05/20/2022 1 [facility] ON OR AFTER 20 (MEDICAID REPLACEMENT - HMO) Ozzy Ch [id number] Ozzy Ch 09/21/2022 1 [facility] - [facility] ON OR AFTER 20 (MEDICAID REPLACEMENT - HMO) Ozzyalbert Ch [id number] Ozzy Dima 06/11/2024 1 [place] [facility] OF PUBLIC AID Ozzy Dima [id number] Ozzy Ch Notes Date Note Type Note [...] b/l lower leg swelling CAROL SARKAR, DPM [address] [place], [address], [facility] 02/10/2021 17:10:46 03/15/2022 text/html admitted at [facility] 02/20/2022-02/23/2022 for alcohol withdrawal. opioid use, b/ leg edema, htn, copd. He drinks 8-10 shooters per week, smokes 15 cigs per day, and used fentanyl to help with leg pain. takes suboxone from clinic in [facility] every couple of days. took keflex -02/28 qid. need BMP per hospital recommendations. Patient has continues to use fentanyl. last used two days ago. States his leg is swollen again as he ran out of water pill from hospital. He also states he has been set up for ID at [facility]. He says he has been using inhalers [...] year ago. VICTORIA SPARKS Attn: Accounting,[address], [place], [address], [facility] 03/22/2022 20:46:06 05/20/2022 text/html Ozzy is a 62 Y O M pmhxz, substance use disorder, COPD, prediabetes, stasis dermatitis, HF, obesity presenting with son to establish Patient was admitted for right knee pain and deconditioning at [facility] 04/28/22-05/11/22. He received PT while admitted. He was set up with OP PT/OT through [facility].Patient son states he is now from and is moving to apartment in [place] on his own. Son is going to help bring him to all appointments. He saw ortho this week and they gave him suboxone started one month through [facility]. They are also giving him seroquel for sleep. Per son he has appointment to start HepC treatment at [facility] June 04 VICTORIA SPARKS Attn: Accounting,[address] [facility], [place], [address], [facility] 05/22/2022 09:36:35 09/21/2022 text/html [...] son he is undergoing HepC treatment at [facility] VICTORIA SPARKS Attn: Accounting,[address] [facility], [place], [address], [facility] 09/30/2022 13:57:36 06/11/2024 text/html Neck PainReporte d [...] ER and may have been admitted to [facility] [place] in January, with CHF, COPD and Pneumonia. He has been following up with his Psychiatrist at [place], his dentist or oral surgeon and it [...] insomnia. Dominick Kennedy MD Attn: Accounting[address] [place], [address], [facility] 06/11/2024 19:47:18
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
--- OUTSIDE RECORDS SUMMARY | 2024-08-13 22:01 | XMS_ITS | Referral Summary ---
Author Organization [facility] [place] [address] Address [address] [place] [address] Care Team Providers Care Chief General Pediatric Clinic Name Role Phone Tomeka Knight Primary Care [...] (05/14/2022): Added automatically from request for surgery [id number] Obesity (BMI 30.0-34.9) 04/30/2022 Assessment & Plan (04/30/2022 4:49 PM WAX PATTERN ASSEMBLER): Diet and exercise. Right knee pain 04/28/2022 Assessment & Plan (04/29/2022 1:57 PM WAX PATTERN ASSEMBLER): Chronic. Right knee MRI 02/2022 demonstrated fracture of right medial femoral condyle, tear of right medial meniscus, and effusion/synovitis. Ortho recommended non op, WBAT. Has not followed up with ortho after discharge. -Encourage ortho follow up -Voltaren gel -APAP -seen by PT/OT; will discharge with walker and home therapy Assessment & Plan (04/28/2022 1:14 AM WAX PATTERN ASSEMBLER): Chronic. Right knee MRI 02/2022 demonstrated fracture of right medial femoral condyle, tear of right medial meniscus, and effusion/synovitis. Ortho recommended non op, WBAT. Has not followed up with ortho after discharge. -Encourage ortho follow up -Voltaren gel -APAP -PT/OT Alcohol abuse 04/28/2022 Assessment & Plan (04/28/2022 2:18 PM WAX PATTERN ASSEMBLER): Drinks 2- 3 shots before bed. No active withdrawals. -Thiamine, folate -Encourage Cessation -Monitor for withdrawal Assessment & Plan (04/28/2022 1:15 AM WAX PATTERN ASSEMBLER): Drinks 2- 3 shots before bed. No active withdrawals. -Thiamine, folate -Encourage Cessation -Monitor for withdrawal Elevated alkaline phosphatase level 04/28/2022 Assessment & Plan (04/30/2022 4:09 PM WAX PATTERN ASSEMBLER): Unclear etiology. HCV positive. GGTP elevated. Intra and extrahepatic dilatation noted on US; MRI to be performed later this evening. Assessment & Plan (04/28/2022 1:15 AM WAX PATTERN ASSEMBLER): Unclear etiology. HCV positive. -Check GGT and Liver ultrasound for now. HCV (hepatitis C virus) 04/28/2022 Assessment & Plan (04/28/2022 2:20 PM WAX PATTERN ASSEMBLER): Chronic and untreated. Missed ID clinic appointment 04/20/22; stated getting a ride is the problem. -Genotype pending. -Needs outpatient follow up. Assessment & Plan (04/28/2022 1:16 AM WAX PATTERN ASSEMBLER): Chronic and untreated. Missed ID clinic appointment 04/20/22. -Needs outpatient follow up. Acute on chronic diastolic heart failure 023 Assessment & Plan (04/29/2022 1:54 PM WAX PATTERN ASSEMBLER): TTE with normal EF. Previously g1DD and increased RVSP. -S/P 60mg IV Lasix in ED, then 40mg IV BID daily -Will change to Lasix 40mg po 04/30 -Continue metoprolol, statin, ASA Assessment & Plan (04/28/2022 1:17 AM WAX PATTERN ASSEMBLER): TTE with normal EF. Previously g1DD and increased RVSP. Hypervolemic on examination today. -S/P 60mg IV Lasix in ED, continue 40mg IV BID daily -Monitor electrolytes and replete -Continue metoprolol, statin, ASA Venous stasis dermatitis of both lower extremiti es 04/27/2022 Assessment & Plan (04/29/2022 1:54 PM WAX PATTERN ASSEMBLER): Chronic venous stasis dermatitis. No infectious symptoms, [...] following. Assessment & Plan (04/28/2022 1:10 AM WAX PATTERN ASSEMBLER): Chronic venous stasis dermatitis. No infectious symptoms, normal lactate, no fevers, and no WBC making infection less concerning though given ulcer on left lateral leg, cannot rule out superimposed infection. Also has prior dopplers demonstrating chronic DVT at the level of the popliteal vein in the left. Post thrombotic changes could be contributing though bilateral symptoms. Discussed with vascular counselor education professor about AC in chronic DVTs and no [...] 09/20/2020 Assessment & Plan (04/30/2022 4:08 PM WAX PATTERN ASSEMBLER): Elevated total protein thought to be related to HCV. -Check SPEP/UPEP given alk phos elevation. Immunofixation unremarkable. UPEP pending. -Needs to follow up with ID for HCV treatment. Assessment & Plan (04/28/2022 1:13 AM WAX PATTERN ASSEMBLER): Elevatedt total protein thought to be related [...] 08/22/2019 Assessment & Plan (04/30/2022 4:09 PM WAX PATTERN ASSEMBLER): Smokes @ 1ppd -Duonebs for now -Smoking cessation; wants nicotine patch in the hospital; states he has some at home and does not need any prescribed. Assessment & Plan (04/28/2022 1:11 AM WAX PATTERN ASSEMBLER): Wheezing bilaterally. Denies SOB. Still smoking. Not [...] abuse Assessment & Plan (04/30/2022 4:07 PM WAX PATTERN ASSEMBLER): Active use of Fentanyl. No longer followed in clinic for Suboxone; was being followed at [facility] in [place] up until 2mo ago per pt. -Encourage cessation -Seen for substance use. Pt is currently on patch. When discussing f/u at the [place] clinic, he reports that he plans on quitting on his own. On further discussion, he agreed to an appointment - he will be seeing them on Tuesday. Assessment & Plan (04/28/2022 1:12 AM WAX PATTERN ASSEMBLER): Active use of Fentanyl. No longer followed [...] Assessment & Plan (08/22/2019 5:28 AM CDT): Young most likely to be drug-induced reaction. No [...] often do you attend chur ch or faith services? Never 02/24/2022 Do you belong to any clubs o r organizations such as pentecostal groups, unions, fraternal or athletic groups, or [...] place to sleep or slept in a chcf (including now)? No 02/24/2022 Personal Safety Answer Date Recorded Have you ever been in or are you currently in a harmful physical or emotional relationship or is someone making you feel afraid or unsafe? Denies 11/26/2022 Sex and Gender Information Value Date Recorded Sex Assigned at Not on file Legal Sex Male 6:41 PM WAX PATTERN ASSEMBLER Gender Identity Not on file Sexual Orientation [...] (258 lb 6.4 oz) 06/04/2022 9:57 AM WAX PATTERN ASSEMBLER Height 182.9 cm (6' 0.01 ) 06/04/2022 9:57 AM CS T Body Mass Index 35.04 06/04/2022 9:57 AM WAX PATTERN ASSEMBLER Plan of Treatment Not on file Procedures Procedure Name Priority Date/Time Associated Diagnosis Comments HEPATITIS C GENOTYPE Routine 06/04/2022 11:06 AM WAX PATTERN ASSEMBLER Acute hepatitis C virus infection without hepatic coma CT ABDOMEN PELVIS WO CONTRAST 09/06/2020 12:00 AM CDT from Last 3 Months or Most Recently Relevant to Health Maintenance Results * Hepatitis C genotype (06/04/2022 11:06 AM WAX PATTERN ASSEMBLER) HCV genotype JOANNE BELTRAN [facility] Comment: HCV Genotype, S was cancelled on 06/09/2022 at 16:01; Duplicate test request. Test Performed by: [facility] [address] [place] [address] Territory Sales Executive: Harpal Gregory M.D. Ph.D.; CLIA# [id number] Blood 06/04/2022 11:0 6 AM WAX PATTERN ASSEMBLER 06/04/2022 1:32 PM WAX PATTERN ASSEMBLER us Gudelia Singh MD LAB MICROBIOLOGY - GENERAL ORDER TATYANA Final Result DEVIN [facility] Department [place] [address] * CT Abdomen Pelvis WO Contrast (09/06/2020 12:00 AM CDT) Anatomical Region Laterality Modality Body N/A Computed Tomogra phy 09/06/2020 2:12 PM CDT Narrative 09/06/2020 2:23 PM CDT Patient Name: OZZY CH Ordering Dr: Francesca Zazueta MD D.O.B: 1960 Exam Date: 09/06/20 0000 Age: 60 Sex: Male MR#: [id number] Loc: S220-02 RADIOLOGY REPORT Order #[id number] CT Scan CT Abd/Pelvis WO IV Contrast [...] signed by Danette MILLER T: Report ID: [id number] Reading Location: [place] [address] REPORT ELECTRONICALLY SIGNED IN OTHER VENDOR SYSTEM Resulting Agency Comment I Procedure Note Danette Maya MD - 09/06/2020 Patient Name: OZZY CH Dr: Francesca Zazueta MD D.O.B: 1960 Exam Date: 09/06/20 0000 Age: 60 Sex: Male MR#: [id number] Loc: S220-02 RADIOLOGY REPORT Order #[id number] CT Scan CT Abd/Pelvis WO IV Contrast [...] by Danette Maya TS T: Report ID: [id number] Reading Location: [place] [address] REPORT ELECTRONICALLY SIGNED IN OTHER VENDOR SYSTEM Francesca Zazueta MD IM CT PROCEDUR ES Final Result from Last 3 Months or Most Recently Relevant to Health Maintenance Insurance [facility] Advance Directives For more information, please contact: [phone] * Full Code (Latest Code Status on [...] 5:04 AM 08/22/2019 9:25 PM Care Teams Chief General Pediatric Clinic Relationship Specialty Start Date End Date Tomeka Knight PA PCP - General Physician Research Interviewer 06/28/19
--- OUTSIDE RECORDS SUMMARY | 2024-08-13 22:01 | XMS_ITS | Clinical Summary ---
Author Organization [facility] [address] Address [address] [place] [address] Care Team Providers Care Compensation Intern Name Role Phone Tomeka Knight Primary Care [...] (05/14/2022): Added automatically from request for surgery [id number] Obesity (BMI 30.0-34.9) 04/30/2022 Assessment & Plan (04/30/2022 4:49 PM MEDIA JOB TITLES): Diet and exercise. Right knee pain 04/28/2022 Assessment & Plan (04/29/2022 1:57 PM MEDIA JOB TITLES): Chronic. Right knee MRI 02/2022 demonstrated fracture of right medial femoral condyle, tear of right medial meniscus, and effusion/synovitis. Ortho recommended non op, WBAT. Has not followed up with ortho after discharge. -Encourage ortho follow up -Voltaren gel -APAP -seen by PT/OT; will discharge with walker and home therapy Assessment & Plan (04/28/2022 1:14 AM MEDIA JOB TITLES): Chronic. Right knee MRI 02/2022 demonstrated fracture of right medial femoral condyle, tear of right medial meniscus, and effusion/synovitis. Ortho recommended non op, WBAT. Has not followed up with ortho after discharge. -Encourage ortho follow up -Voltaren gel -APAP -PT/OT Alcohol abuse 04/28/2022 Assessment & Plan (04/28/2022 2:18 PM MEDIA JOB TITLES): Drinks 2- 3 shots before bed. No active withdrawals. -Thiamine, folate -Encourage Cessation -Monitor for withdrawal Assessment & Plan (04/28/2022 1:15 AM MEDIA JOB TITLES): Drinks 2- 3 shots before bed. No active withdrawals. -Thiamine, folate -Encourage Cessation -Monitor for withdrawal Elevated alkaline phosphatase level 04/28/2022 Assessment & Plan (04/30/2022 4:09 PM MEDIA JOB TITLES): Unclear etiology. HCV positive. GGTP elevated. Intra and extrahepatic dilatation noted on US; MRI to be performed later this evening. Assessment & Plan (04/28/2022 1:15 AM MEDIA JOB TITLES): Unclear etiology. HCV positive. -Check GGT and Liver ultrasound for now. HCV (hepatitis C virus) 04/28/2022 Assessment & Plan (04/28/2022 2:20 PM MEDIA JOB TITLES): Chronic and untreated. Missed ID clinic appointment 04/20/22; stated getting a ride is the problem. -Genotype pending. -Needs outpatient follow up. Assessment & Plan (04/28/2022 1:16 AM MEDIA JOB TITLES): Chronic and untreated. Missed ID clinic appointment 04/20/22. -Needs outpatient follow up. Acute on chronic diastolic heart failure 023 Assessment & Plan (04/29/2022 1:54 PM MEDIA JOB TITLES): TTE with normal EF. Previously g1DD and increased RVSP. -S/P 60mg IV Lasix in ED, then 40mg IV BID daily -Will change to Lasix 40mg po 04/30 -Continue metoprolol, statin, ASA Assessment & Plan (04/28/2022 1:17 AM MEDIA JOB TITLES): TTE with normal EF. Previously g1DD and increased RVSP. Hypervolemic on examination today. -S/P 60mg IV Lasix in ED, continue 40mg IV BID daily -Monitor electrolytes and replete -Continue metoprolol, statin, ASA Venous stasis dermatitis of both lower extremiti es 04/27/2022 Assessment & Plan (04/29/2022 1:54 PM MEDIA JOB TITLES): Chronic venous stasis dermatitis. No infectious symptoms, [...] following. Assessment & Plan (04/28/2022 1:10 AM MEDIA JOB TITLES): Chronic venous stasis dermatitis. No infectious symptoms, normal lactate, no fevers, and no WBC making infection less concerning though given ulcer on left lateral leg, cannot rule out superimposed infection. Also has prior dopplers demonstrating chronic DVT at the level of the popliteal vein in the left. Post thrombotic changes could be contributing though bilateral symptoms. Discussed with vascular storage solutions architect about AC in chronic DVTs and no [...] 09/20/2020 Assessment & Plan (04/30/2022 4:08 PM MEDIA JOB TITLES): Elevated total protein thought to be related to HCV. -Check SPEP/UPEP given alk phos elevation. Immunofixation unremarkable. UPEP pending. -Needs to follow up with ID for HCV treatment. Assessment & Plan (04/28/2022 1:13 AM MEDIA JOB TITLES): Elevatedt total protein thought to be related [...] 08/22/2019 Assessment & Plan (04/30/2022 4:09 PM MEDIA JOB TITLES): Smokes @ 1ppd -Duonebs for now -Smoking cessation; wants nicotine patch in the hospital; states he has some at home and does not need any prescribed. Assessment & Plan (04/28/2022 1:11 AM MEDIA JOB TITLES): Wheezing bilaterally. Denies SOB. Still smoking. Not [...] abuse Assessment & Plan (04/30/2022 4:07 PM MEDIA JOB TITLES): Active use of Fentanyl. No longer followed in clinic for Suboxone; was being followed at [facility] in [place] up until 2mo ago per pt. -Encourage cessation -Seen for substance use. Pt is currently on patch. When discussing f/u at the [place] clinic, he reports that he plans on quitting on his own. On further discussion, he agreed to an appointment - he will be seeing them on Tuesday. Assessment & Plan (04/28/2022 1:12 AM MEDIA JOB TITLES): Active use of Fentanyl. No longer followed [...] Assessment & Plan (08/22/2019 5:28 AM CDT): [place] most likely to be drug-induced reaction. No [...] How often do you attend chur or religion services? Never 02/24/2022 Do you belong to any clubs o r organizations such as latter day groups, unions, fraternal or athletic groups, or [...] on file Legal Sex Male 6:41 PM MEDIA JOB TITLES Gender Identity Not on file Sexual Orientation [...] (258 lb 6.4 oz) 06/04/2022 9:57 AM MEDIA JOB TITLES Height 182.9 cm (6' 0.01 ) 06/04/2022 9:57 AM CS T Body Mass Index 35.04 06/04/2022 9:57 AM MEDIA JOB TITLES Plan of Treatment Health Maintenance Due Date [...] HEPATITIS C GENOTYPE Routine 06/04/2022 11:06 AM MEDIA JOB TITLES Acute hepatitis C virus infection without hepatic coma CT ABDOMEN PELVIS WO CONTRAST 09/06/2020 12:00 AM CDT from Last 3 Months or Most Recently Relevant to Health Maintenance Results * Hepatitis C genotype (06/04/2022 11:06 AM MEDIA JOB TITLES) HCV genotype [facility] Comment: HCV Genotype, S was cancelled on 06/09/2022 at 16:01; Duplicate test request. Test Performed by: [place] [id number] [place] [address] Wall Steamer: Harpal Gregory M.D. Ph.D.; CLIA# [id number] Blood 06/04/2022 11:0 6 AM MEDIA JOB TITLES 06/04/2022 1:32 PM MEDIA JOB TITLES us Gudelia Singh MD LAB MICROBIOLOGY - GENERAL ORDER TATYANA Final Result [facility] Department of Laboratories [place], [place] [id number] * CT Abdomen Pelvis WO Contrast (09/06/2020 12:00 AM CDT) Anatomical Region Laterality Modality Body N/A Computed Tomogra phy 09/06/2020 2:12 PM CDT Narrative 09/06/2020 2:23 PM CDT Patient Name: OZZY CH Ordering Dr: Francesca Zazueta MDO.B: 1960 Exam Date: 09/06/20 0000 Age: 60 Sex: Male MR#: [id number] Loc: S220-02 RADIOLOGY REPORT Order #[id number] CT Scan CT Abd/Pelvis WO IV Contrast [...] by Danette Maya TS T: Report ID: [id number] Reading Location: [place] [address] REPORT ELECTRONICALLY SIGNED IN OTHER VENDOR SYSTEM Resulting Agency Comment I Procedure Note Danette Maya MD - 09/06/2020 Patient Name: OZZY CH Dr: Francesca Zazueta MD D.O.B: 1960 Exam Date: 09/06/20 0000 Age: 60 Sex: Male MR#: [id number] Loc: S220-02 RADIOLOGY REPORT Order #[id number] CT Scan CT Abd/Pelvis WO IV Contrast [...] by Danette Maya TS T: Report ID: [id number] Reading Location: [id number] REPORT ELECTRONICALLY SIGNED IN OTHER VENDOR SYSTEM Francesca Zazueta MD IMG CT PROCEDUR ES Final Result from Last 3 Months or Most Recently Relevant to Health Maintenance Insurance [facility] [place] [address] [place] [address] Member Subscriber Plan / Payer (Ef fective 2020-Present) Name:Ozzy Ch Relation to Subscriber:Self Name:Ozzy Ch Payer ID:[id number] (NAIC) Type:MEDICAID RISK OTHER Address: ATTN: CLAIMS DEPT [address] [facility] [place] [phone] Advance Directives For more information, please contact: [phone] * Full Code (Latest Code Status on [...] 5:04 AM 08/22/2019 9:25 PM Care Teams Compensation Intern Relationship Specialty Start Date End Date Tomeka Knight PA PCP - General Physician Legislative Analyst 06/28/19
[2024-08-13 22:02] VITALS: BP 133/56; PULSE 115; RESP 28; TEMP 36.7; O2SAT 88
--- OUTSIDE RECORDS SUMMARY | 2024-08-13 22:02 | XMS_ITS | CONTINUITY OF CARE DOCUMENT ---
Author Name alex johnson Address Unknown Organization [facility] Address [address] [place] [address] Phone [phone] Care Team Providers Care Refining Supervisor Name Role Phone Anival MONTAGUE, Salo Unavailable [phone] Salo Florian MD Unavailable [phone] INSURANCE PROVIDERS Payer name Policy type / Coverage type Roxanne red libertarian [place] MEDICAID (2) Medicaid [id number]
--- OUTSIDE RECORDS SUMMARY | 2024-08-13 22:02 | XMS_ITS | Patient Health Record ---
Author Organization [facility] Address [address] [place] [address] Care Team Providers Care Tag Maker Name Role Phone Roney Zurita Primary Care Provider [phone] Celestine Powers Unavailable [phone] Joel Freedman Unavailable [phone] Ariadne Parada Unavailable [phone] Francesca Sandoval Unavailable [phone] Arabella Mcpherson Unavailable [phone] Allergies No Known Allergies Results Component Value Reference Range Notes 12 Panel Urine Drug Screen Reviewed date:05/01/2024 10:04:02 AM Interpretation: Performing Lab: Notes/Report: THC neg RIVAS neg MOP (OPI) neg AMP neg MET neg BAR neg BZO neg MDMA neg MTD neg OXY neg PCP neg BUP POS Medication Assisted Treatmen t (MAT) Buprenorphine, Norbuprenorphine, and Naloxone MS Confirmation, Urine Reviewed date:05/08/2024 09:28:50 AM Interpretation: Performing Lab:[facility], [address] [facility], Phone - [phone], [facility] Notes/Report: Creatinine 82 REFERENCE RANGE : Ref [...] Administration. 12 Panel Urine Drug Screen Reviewed date:04/06/2024 [...] POS 12 Panel Urine Drug Screen Reviewed date:08/13/2024 01:27:03 PM Interpretation: Performing Lab: Notes/Report: THC neg [...] POS 12 Panel Urine Drug Screen Reviewed date:06/08/2024 [...] as needed Inhalation every 4 hrs Active Nicotine Polacrilex 4 MG 1 piece chew for 30 minutes as needed Mouth/Throat every 1-2 hours for 30 days As needed for smoking cessation, up to 16 pieces per day 05/01/2024 Active Vitamin B-1 100 MG 1 tablet Orally Once a day Active Atorvastatin Calcium 40 MG 1 tablet Orally Once a day Active Lopressor 50 MG 1 tablet with food Orally Twice a day Active Buprenorphine HCl-Naloxone HCl 12-3 MG 1 film under the tongue and allow to dissolve Sublingual three times daily 08/13/2024 Active Aspirin 81 81 MG 1 tablet Orally Once a day Active Lasix 40 MG 1 tablet Orally Once a day Hoang Ordoñez Active Ibuprofen 600 MG 1 tablet with food or milk as needed Orally every 12 hrs Active Social History Tobacco Use: Social History [...] 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 Stress is when someone feels tense, nervous, anxious, or can\t sleep at night because their mind is troubled Somewhat In the past year have you sp ent more than 2 nights in a row in a detention, halfway, assisted center, or juvenile correctional facility? No Are [...] W/U Status Risk Notes Problem Tobacco user (528287497) Nicotine dependence, unspecified, uncomplicated (F17.200) Active confirmed Problem Insomnia (724459584) Insomnia (G47.00) Active confirmed Problem Ethanol abuse (70658893) ETOH abuse (F10.10) Active confirmed Problem 111193499 Obesity (BMI 30-39.9) (E66.9) Active confirmed Problem 617173793 Tobacco use disorder (F17.200) Active confirmed Problem 685338908 COPD with exacerbation (J44.1) Active confirmed Problem Opioid use disorder (9771032009) Opioid use disorder (F11.99) Active confirmed Problem 5765074 Opioid use disorder (F11.90) Active confirmed Vital Signs Heart Rate 120 /min 08/13/2024 1:49PM-HR 121 S PO2-91$. Provider made aware. Temperature 98.5 degrees Fahrenheit 05/01/2024 Respiratory Rate 19 /min 08/13/2024 1:49PM-HR 1 21 SPO2-91$. Provider made aware. Oximetry 87 % 08/13/2024 1:49PM-HR 121 S PO2-91$. Provider made aware. Blood pressure diastolic 60 mm Hg 08/13/2024 1:4 9PM-HR 121 SPO2-91$. Provider made aware. Height 70 in 08/13/2024 1:49PM-HR 121 S PO2-91$. Provider made aware. Blood pressure systolic 132 mm Hg 08/13/2024 1:49 PM-HR 121 SPO2-91$. Provider made aware. Weight 275 lb 0 oz lbs 08/13/2024 1:49PM-HR 12 1 SPO2-91$. Provider made aware. BMI 39.45 kg/m2 08/13/2024 1:49PM-HR 121 S PO2-91$. Provider made aware. Encounters Encounter Location Date Provider Diagnosis [facility] [address] [place] [address] 09/01/2023 Roney Zurita Opioid use disorder F11.99 [facility] [place] [address] 10/18/2023 Roney Zurita COPD, moderate J44.9 and Opioid use disorder F11.[address] [place] [address] 12/22/2023 Roney Zurita COPD, moderate J44.9 and Opioid use disorder F11.99 [facility] [address] [place] [address] 03/02/2024 Celestine Powers [place] [address] [place] [address] 06/08/2024 Roney Zurita Insomnia G47.[address] [place] [address] 09/01/2023 Ariadne Parada [facility] [address], [place] [address] 08/13/2024 Francesca Sandoval Opioid use disorder F11.99 and Nicotine dependence, unspecified, uncomplicated F17.[address] [address] 09/01/2023 Joel Freedman Opioid use disorder F11.99 ; COPD, moderate J44.9 ; Obesity (BMI 30-39.9) E66.9 ; Nutritional counseling Z71.3 and Nicotine dependence, unspecified, uncomplicated F17.[address] [address] 10/18/2023 Roney Zurita Opioid use disorder F11.90 ; Obesity (BMI 30-39.9) E66.9 and Tobacco use disorder F17.[address] [place] [address] 12/22/2023 Celestine Powers Opioid use disorder F11.90 ; Opioid use disorder F11.99 and Nicotine dependence, unspecified, uncomplicated F17.[address] [address] 03/12/2024 Arabella Szlufik Opioid use disorder F11.90 ; Obesity (BMI 30-39.9) E66.9 ; Nicotine dependence, unspecified, uncomplicated F17.200 and Nutritional counseling Z71.[address] [address] 04/06/2024 Joel Freedman Opioid use disorder F11.90 ; COPD, moderate J44.9 ; Insomnia G47.00 ; Obesity (BMI 30-39.9) E66.9 ; Nutritional counseling Z71.3 and Nicotine dependence, unspecified, uncomplicated F17.[address] [address] 05/01/2024 Arabella Szlufik Opioid use disorder F11.90 ; Nicotine dependence, unspecified, uncomplicated F17.200 and Nutritional counseling Z71.[address] [address] 06/08/2024 Roney Zurita Opioid use disorder F11.99 and Obesity (BMI 30-39.9) E66.[address] [address] 07/06/2024 Arabella Lisalufik Opioid use disorder F11.90 and Nutritional counseling Z71.3 Assessments Encounter Date Diagnosis (ICD Code) Assessment Notes Treatment Notes Treatment Clinical Notes Section Notes 07/06/2024 Opioid use disorder (ICD-10 - F11.90) 06/08/2024 Insomnia (ICD-10 - G47.00) 06/08/2024 Obesity (BMI 30-39.9) (ICD-10 - E66.9) 06/08/2024 Opioid use disorder (ICD-10 - F11.99) 08/13/2024 Nicotine dependence, unspecified, uncomplicated (ICD-10 - F17.200) 08/13/2024 Opioid use disorder (ICD-10 - F11.99) 04/06/2024 Opioid use disorder (ICD-10 - F11.90) 04/06/2024 COPD, moderate (ICD-10 - J44.9) 03/12/2024 Obesity (BMI 30-39.9) (ICD-10 - E66.9) 03/12/2024 Opioid use disorder (ICD-10 - F11.90) Discussed risks of continued illicit substance use and encouraged non-use. 12/22/2023 COPD, moderate (ICD-10 - J44.9) 12/22/2023 [...] 12/22/2023 Opioid use disorder (ICD-10 - F11.99) 03/12/2024 Nicotine dependence, unspecified, uncomplicated (ICD-10 - F17.200) 07/06/2024 Nutritional counseling (ICD-10 - Z71.3) 04/06/2024 Insomnia (ICD-10 - G47.00) 04/06/2024 Obesity (BMI 30-39.9) (ICD-10 - E66.9) 03/12/2024 Nutritional counseling (ICD-10 - Z71.3) 12/22/2023 Nicotine dependence, unspecified, uncomplicated (ICD-10 - F17.200) 09/01/2023 Nutritional counseling (ICD-10 - Z71.3) 09/01/2023 Nicotine dependence, unspecified, uncomplicated (ICD-10 - F17.200) 04/06/2024 Nutritional counseling (ICD-10 - Z71.3) 04/06/2024 Nicotine dependence, unspecified, uncomplicated (ICD-10 - F17.200) 08/13/2024 Other Patient agrees to take medication as prescribed. Discussed medication side effects, adverse effects, risks, benefits, as well as interactions. Encouraged non-use of opioids. Encouraged participation in recovery groups. Patient may contact office with questions or concerns. 09/01/2023 Other Potential side effects of buprenorphine [...] may self-administer their own oral medications per [facility] Protocol. Plan Of Treatment No Information Insurance Providers Payer Name Payer Address Payer Phone Subscriber Number Group Number Insured Name Patient Relationship to Insured Coverage Start Date Coverage End Date [facility] Attn Claims Department [address] [place] [address] [id number] Ozzy Ch Self - patient is the insured 4 [place] [place] [address] [id number] Ozzy Ch Self - patient is the insured 4 4 [facility] Claims Department [address] [place] [address] [id number] Ozzy Ch Self - patient is the insured 3 Medical (General) History Medical History History ICD Code ETOH abuse Opioid use disorder HTN Surgical History Surgery Date(Month/Year) Hospitalization History Reason Date(Month/Year) 07/2021 alcohol & fentanyl w/d 07/2021 knee injury - [facility] 05/01/2021 pneumonia 2022 spiked drink 11/2023 [facility] 12/2023
--- NOTE | 2024-08-13 22:10 | ECG_ITS ---
Test Date: 2024-08-13 22:24:08 Measurements Intervals Reading Rate: 110 P: 52 MN: 182 QRS: 42 QRSD: 101 T: 54 QT: 337 QTc: 458 Interpretive Statements SINUS TACHYCARDIA INCOMPLETE RIGHT BUNDLE BRANCH BLOCK BASELINE ARTIFACT- I, III, AVR, AVL, AVF, V1-V6 ABNORMAL ECG Compared to ECG 08/03/2024 12:18:09 HEART RATE HAS INCREASED Electronically Signed On 08-14-2024 06:18:29 CDT by Dionicio Danielle D.O.
[2024-08-13 22:26] VITALS: O2SAT 90
[2024-08-13 22:28] LABS: Basophils Absolute Auto 0.1 K/mm3 (0.0-0.1); Basophils Percent Auto 0.6 % (0.2-1.2); Eosinophils Absolute Auto 0.6 K/mm3 (0-0.3); Eosinophils Percent Auto 7.8 % (0-4.4); Hematocrit 40.5 % (42.0-52.0); Hemoglobin 12.4 g/dL (14.0-18.0); Immature Granulocyte Absolute 0.03 K/mm3 (0.00-0.031); Immature Granulocyte Percent A 0.4 % (0-0.5); Lymphocytes Absolute Auto 1.65 K/mm3 (0.9-3.2); Mean Corpuscular HGB Conc 30.6 g/dl (32-36); Mean Corpuscular Hemoglobin 29.2 pg (26-34); Mean Corpuscular Volume 95.3 fl (80-100); Mean Platelet Volume 10.1 fl (7.4-10.4); Monocytes Absolute Auto 0.6 K/mm3 (0.1-0.6); Monocytes Percent Auto 7.9 % (2.6-8.5); Neutrophils Absolute Auto 4.9 K/mm3 (1.3-6.7); Neutrophils Percent Auto 62.3 % (45.5-73.1); Platelet Count Result 232 k/mm3 (150-375); Red Blood Count 4.25 M/mm3 (4.6-6.20); Red Cell Distribution Width 13.8 % (11.5-14.5); White Blood Count 7.8 K/mm3 (4.5-10.0)
[2024-08-13 22:41] LABS: Alanine Aminotransferase 14 U/L (6-50); Albumin Level 4.1 g/dL (3.5-5.1); Alkaline Phosphatase 92 U/L (38-126); Anion Gap 9 mmol/L (4-12); Aspartate Amino Transferase 22 U/L (17-59); Bilirubin,Total 0.4 mg/dL (0.2-1.3); Blood Urea Nitrogen 15 mg/dL (9-20); Calcium 8.6 mg/dL (8.4-10.2); Carbon Dioxide 34 mmol/L (22-30); Chloride 95 mmol/L (98-107); Estimated Glomerular Filt Rate > 60; Glucose 118 mg/dL (65-110); Potassium 3.2 mmol/L (3.4-5.0); Sodium 138 mmol/L (137-145)
[2024-08-13 22:42] LABS: Lactic Acid Reflex 2.2 mmol/L (0.7-2.0)
[2024-08-13 23:04] LABS: Alveolar/Arterial O2 Gradient 138.8 mmHg; Base Excess ABG 6.7 mEq/l (+/-2.0); Carboxyhemoglobin 1.7 % THb (0-2.0); Fractional Inspired Oxygen 40 %; HCO3 ABG 33.2 mEq/l (22.0-26.0); Methemoglobin ABG 0.3 %THb (0-1.5); Oxygen Content ABG 17.6 %vol (16.0-22.0); Oxygen Saturation ABG 95.8 % (95.0-100.0); Oxyhemoglobin 94.4 % THb (90.0-100.0); PCO2 ABG 55.9 mmHg (35.0-45.0); PO2 ABG 82.1 mmHg (80.0-100.0); PO2 FiO2 Ratio Arterial Blood 2.05 %; Reduced Hemoglobin 3.6 %THb (0-5.0); Total Hemoglobin 13.2 g/dL (12.0-18.0); pH ABG 7.392 (7.350-7.450)
[2024-08-13 23:06] LABS: Device NASAL CANNULA; Modified Allen's Test Pass; Site Drawn RIGHT RADIAL
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
--- OUTSIDE RECORDS SUMMARY | 2024-08-13 23:08 | XMS_ITS | Referral Summary ---
Author Organization [facility] [address] Address [address] [place] [address] Care Team Providers Care Pamphlet Distributor Name Role Phone Tomeka Knight Primary Care [...] (05/14/2022): Added automatically from request for surgery [id number] Obesity (BMI 30.0-34.9) 04/30/2022 Assessment & Plan (04/30/2022 4:49 PM MARGARINE CHURN OPERATOR): Diet and exercise. Right knee pain 04/28/2022 Assessment & Plan (04/29/2022 1:57 PM MARGARINE CHURN OPERATOR): Chronic. Right knee MRI 02/2022 demonstrated fracture of right medial femoral condyle, tear of right medial meniscus, and effusion/synovitis. Ortho recommended non op, WBAT. Has not followed up with ortho after discharge. -Encourage ortho follow up -Voltaren gel -APAP -seen by PT/OT; will discharge with walker and home therapy Assessment & Plan (04/28/2022 1:14 AM MARGARINE CHURN OPERATOR): Chronic. Right knee MRI 02/2022 demonstrated fracture of right medial femoral condyle, tear of right medial meniscus, and effusion/synovitis. Ortho recommended non op, WBAT. Has not followed up with ortho after discharge. -Encourage ortho follow up -Voltaren gel -APAP -PT/OT Alcohol abuse 04/28/2022 Assessment & Plan (04/28/2022 2:18 PM MARGARINE CHURN OPERATOR): Drinks 2- 3 shots before bed. No active withdrawals. -Thiamine, folate -Encourage Cessation -Monitor for withdrawal Assessment & Plan (04/28/2022 1:15 AM MARGARINE CHURN OPERATOR): Drinks 2- 3 shots before bed. No active withdrawals. -Thiamine, folate -Encourage Cessation -Monitor for withdrawal Elevated alkaline phosphatase level 04/28/2022 Assessment & Plan (04/30/2022 4:09 PM MARGARINE CHURN OPERATOR): Unclear etiology. HCV positive. GGTP elevated. Intra and extrahepatic dilatation noted on US; MRI to be performed later this evening. Assessment & Plan (04/28/2022 1:15 AM MARGARINE CHURN OPERATOR): Unclear etiology. HCV positive. -Check GGT and Liver ultrasound for now. HCV (hepatitis C virus) 04/28/2022 Assessment & Plan (04/28/2022 2:20 PM MARGARINE CHURN OPERATOR): Chronic and untreated. Missed ID clinic appointment 04/20/22; stated getting a ride is the problem. -Genotype pending. -Needs outpatient follow up. Assessment & Plan (04/28/2022 1:16 AM MARGARINE CHURN OPERATOR): Chronic and untreated. Missed ID clinic appointment 04/20/22. -Needs outpatient follow up. Acute on chronic diastolic heart failure 023 Assessment & Plan (04/29/2022 1:54 PM MARGARINE CHURN OPERATOR): TTE with normal EF. Previously g1DD and increased RVSP. -S/P 60mg IV Lasix in ED, then 40mg IV BID daily -Will change to Lasix 40mg po 04/30 -Continue metoprolol, statin, ASA Assessment & Plan (04/28/2022 1:17 AM MARGARINE CHURN OPERATOR): TTE with normal EF. Previously g1DD and increased RVSP. Hypervolemic on examination today. -S/P 60mg IV Lasix in ED, continue 40mg IV BID daily -Monitor electrolytes and replete -Continue metoprolol, statin, ASA Venous stasis dermatitis of both lower extremiti es 04/27/2022 Assessment & Plan (04/29/2022 1:54 PM MARGARINE CHURN OPERATOR): Chronic venous stasis dermatitis. No infectious [...] following. Assessment & Plan (04/28/2022 1:10 AM MARGARINE CHURN OPERATOR): Chronic venous stasis dermatitis. No infectious symptoms, normal lactate, no fevers, and no WBC making infection less concerning though given ulcer on left lateral leg, cannot rule out superimposed infection. Also has prior dopplers demonstrating chronic DVT at the level of the popliteal vein in the left. Post thrombotic changes could be contributing though bilateral symptoms. Discussed with vascular marketing liaison about AC in chronic DVTs and no [...] 09/20/2020 Assessment & Plan (04/30/2022 4:08 PM MARGARINE CHURN OPERATOR): Elevated total protein thought to be related to HCV. -Check SPEP/UPEP given alk phos elevation. Immunofixation unremarkable. UPEP pending. -Needs to follow up with ID for HCV treatment. Assessment & Plan (04/28/2022 1:13 AM MARGARINE CHURN OPERATOR): Elevatedt total protein thought to be [...] 08/22/2019 Assessment & Plan (04/30/2022 4:09 PM MARGARINE CHURN OPERATOR): Smokes @ 1ppd -Duonebs for now -Smoking cessation; wants nicotine patch in the hospital; states he has some at home and does not need any prescribed. Assessment & Plan (04/28/2022 1:11 AM MARGARINE CHURN OPERATOR): Wheezing bilaterally. Denies SOB. Still smoking. [...] abuse Assessment & Plan (04/30/2022 4:07 PM MARGARINE CHURN OPERATOR): Active use of Fentanyl. No longer followed in clinic for Suboxone; was being followed at [facility] in [place] up until 2mo ago per pt. -Encourage cessation -Seen for substance use. Pt is currently on patch. When discussing f/u at the [facility], he reports that he plans on quitting on his own. On further discussion, he agreed to an appointment - he will be seeing them on Tuesday. Assessment & Plan (04/28/2022 1:12 AM MARGARINE CHURN OPERATOR): Active use of Fentanyl. No longer [...] Assessment & Plan (08/22/2019 5:28 AM CDT): [place] most likely to be drug-induced reaction. No [...] often do you attend chur ch or moravian services? Never 02/24/2022 Do you belong to any clubs o r organizations such as orthodoxy groups, unions, fraternal or athletic groups, or [...] place to sleep or slept in a nursing home (including now)? No 02/24/2022 Personal Safety Answer Date Recorded Have you ever been in or are you currently in a harmful physical or emotional relationship or is someone making you feel afraid or unsafe? Denies 11/26/2022 Sex and Gender Information Value Date Recorded Sex Assigned at Not on file Legal Sex Male 6:41 PM MARGARINE CHURN OPERATOR Gender Identity Not on file Sexual [...] (258 lb 6.4 oz) 06/04/2022 9:57 AM MARGARINE CHURN OPERATOR Height 182.9 cm (6' 0.01 ) 06/04/2022 9:57 AM CS T Body Mass Index 35.04 06/04/2022 9:57 AM MARGARINE CHURN OPERATOR Plan of Treatment Not on file Procedures Procedure Name Priority Date/Time Associated Diagnosis Comments HEPATITIS C GENOTYPE Routine 06/04/2022 11:06 AM MARGARINE CHURN OPERATOR Acute hepatitis C virus infection without hepatic coma CT ABDOMEN PELVIS WO CONTRAST 09/06/2020 12:00 AM CDT from Last 3 Months or Most Recently Relevant to Health Maintenance Results * Hepatitis C genotype (06/04/2022 11:06 AM MARGARINE CHURN OPERATOR) HCV genotype [facility] Comment: HCV Genotype, S was cancelled on 06/09/2022 at 16:01; Duplicate test request. Test Performed by: [facility] [address] [place] [address] Cabinet Mounter: Harpal Gregory M.D. Ph.D.; CLIA# [id number] Blood 06/04/2022 11:0 6 AM MARGARINE CHURN OPERATOR 06/04/2022 1:32 PM MARGARINE CHURN OPERATOR us Gudelia Singh MD LAB MICROBIOLOGY - GENERAL ORDER TATYANA Final Result [facility] Department [place] [address] * CT Abdomen Pelvis WO Contrast (09/06/2020 12:00 AM CDT) Anatomical Region Laterality Modality Body N/A Computed Tomogra phy 09/06/2020 2:12 PM CDT Narrative 09/06/2020 2:23 PM CDT Patient Name: OZZY CH Ordering Dr: Francesca Zazueta MD D.O.B: 1960 Exam Date: 09/06/20 0000 Age: 60 Sex: Male MR#: [id number] Loc: S220-02 RADIOLOGY REPORT Order #[id number] CT Scan CT Abd/Pelvis WO IV Contrast [...] signed by Danette MILLER T: Report ID: [id number] Reading Location: [place] [address] REPORT ELECTRONICALLY SIGNED IN OTHER VENDOR SYSTEM Resulting Agency Comment I Procedure Note Danette Maya MD - 09/06/2020 Patient Name: OZZY CH Dr: Francesca Zazueta MD D.O.B: 1960 Exam Date: 09/06/20 0000 Age: 60 Sex: Male MR#: [id number] Loc: S220-02 RADIOLOGY REPORT Order #[id number] CT Scan CT Abd/Pelvis WO IV Contrast [...] by Danette Maya TS T: Report ID: [id number] Reading Location: [place] [address] REPORT ELECTRONICALLY SIGNED IN OTHER VENDOR SYSTEM Francesca Zazueta MD IM CT PROCEDUR ES Final Result from Last 3 Months or Most Recently Relevant to Health Maintenance Insurance [facility] Advance Directives For more information, please contact: [phone] * Full Code (Latest Code Status on [...] 5:04 AM 08/22/2019 9:25 PM Care Teams Pamphlet Distributor Relationship Specialty Start Date End Date Tomeka Knight PA PCP - General Physician Hygiene Teacher 06/28/19
--- OUTSIDE RECORDS SUMMARY | 2024-08-13 23:09 | XMS_ITS | Clinical Summary ---
Author Organization [facility] [place] [address] Address [address] [place] [address] Care Team Providers Care Car Barn Laborer Name Role Phone Tomeka Knight Primary Care [...] (05/14/2022): Added automatically from request for surgery [id number] Obesity (BMI 30.0-34.9) 04/30/2022 Assessment & Plan (04/30/2022 4:49 PM WELDER APPRENTICE GAS): Diet and exercise. Right knee pain 04/28/2022 Assessment & Plan (04/29/2022 1:57 PM WELDER APPRENTICE GAS): Chronic. Right knee MRI 02/2022 demonstrated fracture of right medial femoral condyle, tear of right medial meniscus, and effusion/synovitis. Ortho recommended non op, WBAT. Has not followed up with ortho after discharge. -Encourage ortho follow up -Voltaren gel -APAP -seen by PT/OT; will discharge with walker and home therapy Assessment & Plan (04/28/2022 1:14 AM WELDER APPRENTICE GAS): Chronic. Right knee MRI 02/2022 demonstrated fracture of right medial femoral condyle, tear of right medial meniscus, and effusion/synovitis. Ortho recommended non op, WBAT. Has not followed up with ortho after discharge. -Encourage ortho follow up -Voltaren gel -APAP -PT/OT Alcohol abuse 04/28/2022 Assessment & Plan (04/28/2022 2:18 PM WELDER APPRENTICE GAS): Drinks 2- 3 shots before bed. No active withdrawals. -Thiamine, folate -Encourage Cessation -Monitor for withdrawal Assessment & Plan (04/28/2022 1:15 AM WELDER APPRENTICE GAS): Drinks 2- 3 shots before bed. No active withdrawals. -Thiamine, folate -Encourage Cessation -Monitor for withdrawal Elevated alkaline phosphatase level 04/28/2022 Assessment & Plan (04/30/2022 4:09 PM WELDER APPRENTICE GAS): Unclear etiology. HCV positive. GGTP elevated. Intra and extrahepatic dilatation noted on US; MRI to be performed later this evening. Assessment & Plan (04/28/2022 1:15 AM WELDER APPRENTICE GAS): Unclear etiology. HCV positive. -Check GGT and Liver ultrasound for now. HCV (hepatitis C virus) 04/28/2022 Assessment & Plan (04/28/2022 2:20 PM WELDER APPRENTICE GAS): Chronic and untreated. Missed ID clinic appointment 04/20/22; stated getting a ride is the problem. -Genotype pending. -Needs outpatient follow up. Assessment & Plan (04/28/2022 1:16 AM WELDER APPRENTICE GAS): Chronic and untreated. Missed ID clinic appointment 04/20/22. -Needs outpatient follow up. Acute on chronic diastolic heart failure 023 Assessment & Plan (04/29/2022 1:54 PM WELDER APPRENTICE GAS): TTE with normal EF. Previously g1DD and increased RVSP. -S/P 60mg IV Lasix in ED, then 40mg IV BID daily -Will change to Lasix 40mg po 04/30 -Continue metoprolol, statin, ASA Assessment & Plan (04/28/2022 1:17 AM WELDER APPRENTICE GAS): TTE with normal EF. Previously g1DD and increased RVSP. Hypervolemic on examination today. -S/P 60mg IV Lasix in ED, continue 40mg IV BID daily -Monitor electrolytes and replete -Continue metoprolol, statin, ASA Venous stasis dermatitis of both lower extremiti es 04/27/2022 Assessment & Plan (04/29/2022 1:54 PM WELDER APPRENTICE GAS): Chronic venous stasis dermatitis. No infectious symptoms, [...] following. Assessment & Plan (04/28/2022 1:10 AM WELDER APPRENTICE GAS): Chronic venous stasis dermatitis. No infectious symptoms, normal lactate, no fevers, and no WBC making infection less concerning though given ulcer on left lateral leg, cannot rule out superimposed infection. Also has prior dopplers demonstrating chronic DVT at the level of the popliteal vein in the left. Post thrombotic changes could be contributing though bilateral symptoms. Discussed with vascular csm consultant about AC in chronic DVTs and no [...] 09/20/2020 Assessment & Plan (04/30/2022 4:08 PM WELDER APPRENTICE GAS): Elevated total protein thought to be related to HCV. -Check SPEP/UPEP given alk phos elevation. Immunofixation unremarkable. UPEP pending. -Needs to follow up with ID for HCV treatment. Assessment & Plan (04/28/2022 1:13 AM WELDER APPRENTICE GAS): Elevatedt total protein thought to be related [...] 08/22/2019 Assessment & Plan (04/30/2022 4:09 PM WELDER APPRENTICE GAS): Smokes @ 1ppd -Duonebs for now -Smoking cessation; wants nicotine patch in the hospital; states he has some at home and does not need any prescribed. Assessment & Plan (04/28/2022 1:11 AM WELDER APPRENTICE GAS): Wheezing bilaterally. Denies SOB. Still smoking. Not [...] abuse Assessment & Plan (04/30/2022 4:07 PM WELDER APPRENTICE GAS): Active use of Fentanyl. No longer followed in clinic for Suboxone; was being followed at [facility] in [place] up until 2mo ago per pt. -Encourage cessation -Seen for substance use. Pt is currently on patch. When discussing f/u at the [place] clinic, he reports that he plans on quitting on his own. On further discussion, he agreed to an appointment - he will be seeing them on Tuesday. Assessment & Plan (04/28/2022 1:12 AM WELDER APPRENTICE GAS): Active use of Fentanyl. No longer followed [...] Assessment & Plan (08/22/2019 5:28 AM CDT): [place] most likely to be drug-induced reaction. No [...] How often do you attend chur or buddhist services? Never 02/24/2022 Do you belong to any clubs o r organizations such as protestant groups, unions, fraternal or athletic groups, or [...] on file Legal Sex Male 6:41 PM WELDER APPRENTICE GAS Gender Identity Not on file Sexual Orientation [...] (258 lb 6.4 oz) 06/04/2022 9:57 AM WELDER APPRENTICE GAS Height 182.9 cm (6' 0.01 ) 06/04/2022 9:57 AM CS T Body Mass Index 35.04 06/04/2022 9:57 AM WELDER APPRENTICE GAS Plan of Treatment Health Maintenance Due Date [...] HEPATITIS C GENOTYPE Routine 06/04/2022 11:06 AM WELDER APPRENTICE GAS Acute hepatitis C virus infection without hepatic coma CT ABDOMEN PELVIS WO CONTRAST 09/06/2020 12:00 AM CDT from Last 3 Months or Most Recently Relevant to Health Maintenance Results * Hepatitis C genotype (06/04/2022 11:06 AM WELDER APPRENTICE GAS) HCV genotype TNP [facility] Comment: HCV Genotype, S was cancelled on 06/09/2022 at 16:01; Duplicate test request. Test Performed by: [id number] [place] [address] Help Desk Analyst: Harpal Gregory M.D. Ph.D.; CLIA# [id number] Blood 06/04/2022 11:0 6 AM WELDER APPRENTICE GAS 06/04/2022 1:32 PM WELDER APPRENTICE GAS us Gudelia Singh MD LAB MICROBIOLOGY - GENERAL ORDER TATYANA Final Result [facility] Department of Laboratories [place], [place] [id number] * CT Abdomen Pelvis WO Contrast (09/06/2020 12:00 AM CDT) Anatomical Region Laterality Modality Body N/A Computed Tomogra phy 09/06/2020 2:12 PM CDT Narrative 09/06/2020 2:23 PM CDT Patient Name: OZZY CH Ordering Dr: Francesca Zazueta MDO.B: 1960 Exam Date: 09/06/20 0000 Age: 60 Sex: Male MR#: [id number] Loc: S220-02 RADIOLOGY REPORT Order #[id number] CT Scan CT Abd/Pelvis WO IV Contrast [...] by Danette Maya TS T: Report ID: [id number] Reading Location: [place] [address] REPORT ELECTRONICALLY SIGNED IN OTHER VENDOR SYSTEM Resulting Agency Comment I Procedure Note Danette Maya MD - 09/06/2020 Patient Name: OZZY CH Dr: Francesca Zazueta MD D.O.B: 1960 Exam Date: 09/06/20 0000 Age: 60 Sex: Male MR#: [id number] Loc: S220-02 RADIOLOGY REPORT Order #[id number] CT Scan CT Abd/Pelvis WO IV Contrast [...] by Danette Maya TS T: Report ID: [id number] Reading Location: [id number] REPORT ELECTRONICALLY SIGNED IN OTHER VENDOR SYSTEM Francesca Zazueta MD IMG CT PROCEDUR ES Final Result from Last 3 Months or Most Recently Relevant to Health Maintenance Insurance [facility] [place] [address] Member Subscriber Plan / Payer (Ef fective 2020-Present) Name:Ozzy Ch Relation to Subscriber:Self Name:Ozzy Ch Payer ID:[id number] (NAIC) Type:MEDICAID RISK OTHER Address: ATTN: CLAIMS DEPT [address] [facility] [place] [phone] Advance Directives For more information, please contact: [phone] * Full Code (Latest Code Status on [...] 5:04 AM 08/22/2019 9:25 PM Care Teams Car Barn Laborer Relationship Specialty Start Date End Date Tomeka Knight PA PCP - General Physician Director Of Analytical Development 06/28/19
--- OUTSIDE RECORDS SUMMARY | 2024-08-13 23:09 | XMS_ITS | CONTINUITY OF CARE DOCUMENT ---
Author Name alex johnson Address Unknown Organization [facility] Address [address] [place] [address] Phone [phone] Care Team Providers Care Manager Staffing Name Role Phone Anival MONTAGUE, Salo Unavailable [phone] Salo Florian MD Unavailable [phone] INSURANCE PROVIDERS Payer name Policy type / Coverage type Roxanne red republican ID DON[place] MEDICAID (2) Medicaid [id number]
[2024-08-13 23:16] VITALS: O2SAT 96
[2024-08-13 23:21] LABS: NT Pro B Type Natriuretic Pept 29 pg/mL (19.9-100); Troponin I < 0.012 ng/mL (0.000-0.034)
[2024-08-14] VITALS (20 sets, daily range): BP systolic 116–151; BP diastolic 58–81; PULSE 76–104; RESP 14–24; TEMP 36.4–37; O2SAT 90–99; BMI 36.6
[2024-08-14 00:22] LABS: Influenza A QL RT-PCR Negative (Negative); Influenza B QL RT-PCR Negative (Negative); RSV RNA, RT-PCR Negative (Negative); SARS-CoV-2 RNA PCR Negative (Negative)
[2024-08-14 00:25] LABS: Reflex Lactic Acid Yes or No Add Lactic
[2024-08-14 00:55] LABS: Lactic Acid 0.9 mmol/L (0.7-2.0)
[2024-08-14] MEDS: FUROSEMIDE INJ 100 MG/10 ML VIAL 60 MG IV PUSH (01:01)
[2024-08-14] MEDS: AZITHROMYCIN 500 MG/NS 250 ML 500 MG/250 ML BAG 250 MG IVPB (01:24)
[2024-08-14] MEDS: WATER FOR IRRIGATION, STERILE 1,000 ML BOTTLE 1000 ML (05:08)
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
[2024-08-14 09:10] LABS: Basophils Percent Auto 0.6 % (0.2-1.2); Eosinophils Absolute Auto 0.5 K/mm3 (0-0.3); Eosinophils Percent Auto 7.5 % (0-4.4); Hematocrit 42.1 % (42.0-52.0); Hemoglobin 12.8 g/dL (14.0-18.0); Immature Granulocyte Absolute 0.02 K/mm3 (0.00-0.031); Immature Granulocyte Percent A 0.3 % (0-0.5); Lymphocytes Absolute Auto 1.51 K/mm3 (0.9-3.2); Lymphocytes Percent Auto 21.4 % (18.3-44.2); Mean Corpuscular HGB Conc 30.4 g/dl (32-36); Mean Corpuscular Hemoglobin 29.2 pg (26-34); Mean Corpuscular Volume 96.1 fl (80-100); Mean Platelet Volume 10.1 fl (7.4-10.4); Monocytes Absolute Auto 0.6 K/mm3 (0.1-0.6); Monocytes Percent Auto 8.8 % (2.6-8.5); Neutrophils Absolute Auto 4.3 K/mm3 (1.3-6.7); Neutrophils Percent Auto 61.4 % (45.5-73.1); Platelet Count Result 212 k/mm3 (150-375); Red Blood Count 4.38 M/mm3 (4.6-6.20); Red Cell Distribution Width 13.9 % (11.5-14.5); White Blood Count 7.1 K/mm3 (4.5-10.0)
[2024-08-14 09:23] LABS: Alanine Aminotransferase 14 U/L (6-50); Albumin Level 4.1 g/dL (3.5-5.1); Alkaline Phosphatase 107 U/L (38-126); Anion Gap 5 mmol/L (4-12); Aspartate Amino Transferase 22 U/L (17-59); Bilirubin,Total 0.6 mg/dL (0.2-1.3); Blood Urea Nitrogen 15 mg/dL (9-20); Calcium 8.4 mg/dL (8.4-10.2); Carbon Dioxide 39 mmol/L (22-30); Chloride 94 mmol/L (98-107); Estimated CRCL calculation 113 ml/min; Estimated Glomerular Filt Rate > 60; Glucose 110 mg/dL (65-110); Magnesium 1.8 mg/dL (1.6-2.3); Potassium 3.4 mmol/L (3.4-5.0); Sodium 138 mmol/L (137-145)
[2024-08-14 09:24] LABS: D Dimer 0.61 ug/mL (<0.48)
[2024-08-14] MEDS: ATORVASTATIN 20 MG TABLET PO (10:04)
[2024-08-14] MEDS: METOPROLOL TARTRATE TAB 25 MG, METOPROLOL TARTRATE TAB 12.5 MG 37.5 MG PO (10:04)
[2024-08-14] MEDS: FOLIC ACID 1 MG TABLET PO (10:05)
[2024-08-14] MEDS: ASPIRIN 81 MG ENTERIC TABLET PO (10:05)
[2024-08-14] MEDS: guaiFENesin 12 HR 600 MG TABCR 1200 MG PO ×2 (10:05→20:45)
[2024-08-14] MEDS: FUROSEMIDE 40 MG TABLET PO ×2 (10:05→17:03)
[2024-08-14] MEDS: THIAMINE HCL 100 MG TABLET PO (10:06)
[2024-08-14] MEDS: BUPRENORPHINE/NALOXONE (*CRX) 4 MG/1 MG SL FILM 3 EACH SUBLINGUAL ×3 (10:06→17:03)
[2024-08-14] MEDS: LACTIC ACID 12% LOTION 225 BTL 1 APPLIC TOPICAL (10:06)
[2024-08-14] MEDS: PANTOPRAZOLE 40 MG TABLET PO (10:06)
[2024-08-14] MEDS: ENOXAPARIN 40 MG/0.4 ML SYRINGE SUB-Q (10:12)
[2024-08-14] MEDS: NICOTINE (*PBKC) 7 MG PATCH 1 PATCH TRANSDERM (10:13)
[2024-08-14] MEDS: IPRATROPIUM 0.5 MG/ALBUTEROL SULFATE 2.5 MG AMPUL.NEB 3 ML INHALATION ×2 (14:12→19:43)
[2024-08-14] MEDS: AZITHROMYCIN 250 MG TABLET 500 MG PO (20:45)
[2024-08-15] VITALS (22 sets, daily range): BP systolic 120–131; BP diastolic 61–73; PULSE 71–102; RESP 10–20; TEMP 36.3–37.1; O2SAT 91–96
[2024-08-15] MEDS: IPRATROPIUM 0.5 MG/ALBUTEROL SULFATE 2.5 MG AMPUL.NEB 3 ML INHALATION ×4 (02:07→20:31)
[2024-08-15 07:54] LABS: Basophils Percent Auto 0.6 % (0.2-1.2); Eosinophils Absolute Auto 0.5 K/mm3 (0-0.3); Eosinophils Percent Auto 7.4 % (0-4.4); Hematocrit 40.3 % (42.0-52.0); Hemoglobin 12.4 g/dL (14.0-18.0); Immature Granulocyte Absolute 0.02 K/mm3 (0.00-0.031); Immature Granulocyte Percent A 0.3 % (0-0.5); Immature Platelet Fraction Pct 5.1 % (0.9-11.2); Lymphocytes Absolute Auto 1.65 K/mm3 (0.9-3.2); Mean Corpuscular HGB Conc 30.8 g/dl (32-36); Mean Corpuscular Hemoglobin 29.9 pg (26-34); Mean Corpuscular Volume 97.1 fl (80-100); Mean Platelet Volume 11.1 fl (7.4-10.4); Monocytes Absolute Auto 0.6 K/mm3 (0.1-0.6); Monocytes Percent Auto 8.8 % (2.6-8.5); Neutrophils Absolute Auto 3.8 K/mm3 (1.3-6.7); Neutrophils Percent Auto 57.9 % (45.5-73.1); Platelet Count Result 196 k/mm3 (150-375); Red Blood Count 4.15 M/mm3 (4.6-6.20); Red Cell Distribution Width 13.8 % (11.5-14.5); White Blood Count 6.6 K/mm3 (4.5-10.0)
[2024-08-15 08:11] LABS: Alanine Aminotransferase 13 U/L (6-50); Albumin Level 3.8 g/dL (3.5-5.1); Alkaline Phosphatase 93 U/L (38-126); Aspartate Amino Transferase 20 U/L (17-59); Bilirubin,Total 0.5 mg/dL (0.2-1.3); Blood Urea Nitrogen 17 mg/dL (9-20); Calcium 8.5 mg/dL (8.4-10.2); Carbon Dioxide > 40 mmol/L (22-30); Chloride 94 mmol/L (98-107); Estimated CRCL calculation 106 ml/min; Estimated Glomerular Filt Rate > 60; Glucose 123 mg/dL (65-110); Potassium 3.8 mmol/L (3.4-5.0); Sodium 137 mmol/L (137-145)
[2024-08-15] MEDS: NICOTINE (*PBKC) 7 MG PATCH 1 PATCH TRANSDERM (08:55)
[2024-08-15] MEDS: BUPRENORPHINE/NALOXONE (*CRX) 4 MG/1 MG SL FILM 3 EACH SUBLINGUAL ×3 (08:56→16:15)
[2024-08-15] MEDS: FUROSEMIDE 40 MG TABLET PO ×2 (08:57→16:18)
[2024-08-15] MEDS: ATORVASTATIN 20 MG TABLET PO (08:57)
[2024-08-15] MEDS: METOPROLOL TARTRATE TAB 25 MG, METOPROLOL TARTRATE TAB 12.5 MG 37.5 MG PO (08:57)
[2024-08-15] MEDS: PANTOPRAZOLE 40 MG TABLET PO (08:59)
[2024-08-15] MEDS: guaiFENesin 12 HR 600 MG TABCR 1200 MG PO ×2 (08:59→20:48)
[2024-08-15] MEDS: FOLIC ACID 1 MG TABLET PO (08:59)
[2024-08-15] MEDS: THIAMINE HCL 100 MG TABLET PO (08:59)
[2024-08-15] MEDS: ASPIRIN 81 MG ENTERIC TABLET PO (08:59)
[2024-08-15] MEDS: ENOXAPARIN 40 MG/0.4 ML SYRINGE SUB-Q (08:59)
[2024-08-15] MEDS: LACTIC ACID 12% LOTION 225 BTL 1 APPLIC TOPICAL (09:10)
--- NOTE | 2024-08-15 10:11 | P.PNIM_ITS ---
Progress Note: A&P Assessment and Plan (1) Acute hypoxic on chronic hypercapnic respiratory failure: Code(s): J96.01 - Acute respiratory failure with hypoxia; J96.12 - Chronic respiratory failure with hypercapnia Status: Acute Assessment and Plan: Patient discharged x1 month ago at which time he did see a medical technicians and was set up for a NIV at home, he is to wear at night and when he naps chronically. W ears 4 L supplemental oxygen for his emphysema. At time of admission patient was requiring 6 L to maintain 90% oxygen saturation. CT Chest showing worsening emphysema, reports non-compliance at home he was re-educated on the need to wear his NIV. * Weaned oxygen back to 4 L, active and stable on * NIV at night and with naps (PCO2 55.6 POA) - pt reports compliance with BIPAP at home with attached RT device which they track * Ordered Dimer to R/O PE - WDL * Remains hypercapnic at >40, will continue to trend and encourage O2 and BIPAP use * F/u with pulmonology outpatient (Dr. Yordan Cummings - [place], August 2024) (2) COPD exacerbation: Code(s): J44.1 - Chronic obstructive pulmonary disease with (acute) exacerbation Status: Acute Assessment and Plan: Patient has chronic history emphysema chest CT showing worsening requiring increased oxygen requirements on admission follows with pulmonology outpatient. COVID/Influenza/RSV negative * Bronchodilators * Incentive spirometry while awake - re-intructed on this today * Azithromycin 500mg * Mucolytics * Supplemental oxygen therapy to maintain oxygen 92%/baseline 4L * NIV BIPAP at night and with naps * Disease management following GOLD guidelines. * Repeat hospitalization risk evaluation per [facility] * Follow-up with medical technicians as an outpatient (Next appt August 2024) (3) Acute exacerbation of chronic heart failure: Code(s): I50.9 - Heart failure, unspecified Status: Acute Assessment and Plan: Patient with history right-sided heart failure LVEF 60-65% with trace MR last echocardiogram 07/10/2024 (during last admission here). Patient's BNP was within normal limits on admission and CXR showed no pulmonary congestion he did receive 60 mg IV Lasix in the emergency department. BLE erythema appears to be more related to his PVD. BLE dopplers WDL 08/14. * Transition patient back to his oral Lasix 40 mg BID- tolerating fine * Continues his metoprolol and ASA * Continuous cardiac monitoring * Pt denies SOB (4) Hypertension: Code(s): I10 - Essential (primary) hypertension Status: Acute Assessment and Plan: * Continued his metoprolol * BP per unit protocol, has been stable 120/80's (5) Lower extremity edema: Code(s): R60.0 - Localized edema Status: Acute Assessment and Plan: Patient with bilateral lower extremity edema appears to be more related to PVD * Pt reports edema better today, L>R * Tru mccormick ordered today, reminded pt to continue to elevate legs here and at home (sleeps in recliner) (6) Tobacco abuse disorder: Code(s): Z72.0 - Tobacco use Status: Acute Assessment and Plan: * Resume patient's nicotine patch * Encouraged smoking cessation again today and risks of active smoking with O2 use. (7) Alcohol abuse: Code(s): F10.10 - Alcohol abuse, uncomplicated Status: Acute Assessment and Plan: * CIWA daily * Continued Thiamine and folic acid * Reports x2 double shots of Fireball at night time (8) History of intravenous drug use in remission: Code(s): Z87.898 - Personal history of other specified conditions Status: Acute Assessment and Plan: * Continued his Suboxone * Denies recent drug use (9) Hyperlipemia: Code(s): E78.5 - Hyperlipidemia, unspecified Status: Acute Assessment and Plan: * Continued his atorvastatin * Negative for bruit on exam Plan Code status: Full code per patient DVT prophylaxis: Lovenox 40 daily Stress ulcer prophylaxis: Protonix 40 daily PT/OT notes: Ambulatory Disposition: Patient continues admission to the medical unit for treatment of acute on chronic respiratory failure with hypoxia and hypercapnia secondary to COPD exacerbation and underlying CHF exacerbation. Patient reports he has been noncompliant with his NIV at home and is still currently smoking. Patient is ambulatory at home and will return home at discharge he has home oxygen at 4 L and NIV. Goals: Decrease BLE edema, continue therapy to help better ambulate while at home, stable on 4L NC, normalize labs back to baseline Subjective Date/time seen: 08/15/24 0945 Interval history: Pt seen today and he was sitting up on the side of his bed on 4L NC O2, which is his home baseline. Pt denies CP and SOB but continues to have BLE edema L>R. Also reports compliance with his IS at bedside. Pt remains hypercapnic with this AM labs at >40. Pt uncertain on some questions I asked today so he gave me his daughter's phone number (Tammy) [phone], I called her and she gave me the below i nformation: -Pulm outpt - Dr. Yordan Cummings ([place]), last seen June 25, 2024 - next appt 08/2024 - referred by PCP -Cards outpt - Does not currently have -BIPAP - 4L bleeds at PM SHx: Pt reports that he still has 3-4 cigarettes daily with the occasional vape use when he has a craving. He also reports drinking x2 double shots of fireball at night time. Denies any recent drug use, he reports compliance with his Suboxone. Review of Systems Review of Systems: All systems reviewed & are unremarkable except as noted in HPI and below Exam Narrative: Pt sitting on side of bed, talking in full sentences while wearing 4L O2 Const: General: no acute distress HENMT: Face/Nose/Sinus: Normal nares present Mouth: Yes moist mucous membranes Eyes: General: appearance normal, both eyes and all related structures Sclera: sclerae normal Resp: Auscultation: crackles (bases) bilateral and diminished lung sounds Cardio: Rate: regular rate Rhythm: regular rhythm Other: 89 NSR telemetry : Other: de la cruz catheter in place Urinary Catheter: Urinary Catheter: patent and draining and urine clear Skin: Lesions: no lesions noted Rashes: no rashes noted Wounds: no wounds Other: BLE venous stasis with erythema. BLE L 2+, R 1+ Neuro: Speech: normal speech Extrem: Other: SEE SKIN Psych: Mental Status: mental status grossly normal Affect: normal affect Objective Data Vital Signs Vital Signs: Vital Signs - 24 hr 08/14/24 12:00 08/14/24 14:00 08/14/24 14:17 Temperature 98.6 F Pulse Rate 77 78 81 Respiratory Rate 20 14 Blood Pressure 116/64 Pulse Oximetry 96 Oxygen Delivery Oxygen Flow Rate 08/14/24 14:20 08/14/24 14:25 08/14/24 16:00 Temperature Pulse Rate 81 84 76 Respiratory Rate 16 16 Blood Pressure Pulse Oximetry 95 Oxygen Delivery High Flow Nasal Cannula Oxygen Flow Rate 5 08/14/24 18:14 08/14/24 19:44 08/14/24 19:47 Temperature Pulse Rate 85 85 Respiratory Rate 16 Blood Pressure Pulse Oximetry 94 95 Oxygen Delivery High Flow Nasal Cannula High Flow Nasal Cannula Oxygen Flow Rate 4 4 08/14/24 19:50 08/14/24 20:00 08/14/24 20:14 Temperature 97.6 F Pulse Rate 84 87 87 Respiratory Rate 16 17 Blood Pressure 121/81 Pulse Oximetry 95 Oxygen Delivery Oxygen Flow Rate 08/14/24 23:20 08/15/24 00:00 08/15/24 02:08 Temperature Pulse Rate 89 81 89 Respiratory Rate 14 14 Blood Pressure Pulse Oximetry 96 Oxygen Delivery CPAP Oxygen Flow Rate 08/15/24 02:10 08/15/24 02:14 08/15/24 04:00 Temperature Pulse Rate 89 88 94 Respiratory Rate 14 14 Blood Pressure Pulse Oximetry 95 Oxygen Delivery CPAP Oxygen Flow Rate 08/15/24 05:56 08/15/24 08:23 08/15/24 08:23 Temperature 97.3 F L Pulse Rate 90 94 Respiratory Rate 18 18 Blood Pressure 122/61 Pulse Oximetry 96 95 Oxygen Delivery High Flow Nasal Cannula Oxygen Flow Rate 4 08/15/24 08:33 08/15/24 08:57 Temperature Pulse Rate 89 92 Respiratory Rate 18 Blood Pressure Pulse Oximetry Oxygen Delivery Oxygen Flow Rate Intake/Output Intake/Output: Intake & Output 08/12/24 08/13/24 08/14/24 08/15/24 23:59 23:59 23:59 23:59 Intake Total 2520 Output Total 850 1250 Balance 1670 -1250 Meds/Results Medications: Active Medications Generic Name Dose Route Start Last Admin Trade Name Freq PRN Reason Stop Dose Admin Acetaminophen 650 mg 08/14/24 08:41 Acetaminophen 325 Mg Tablet PO Q4H PRN Mild Pain (1-3) or Fever Hydrocodone Bitart/Acetaminophen 1 tab 08/14/24 08:41 Hydrocodone/Acetaminophen (*Crx) 5-325 Mg Tablet PO Q4H PRN Moderate Pain (4-6) Albuterol/Ipratropium 3 ml 08/14/24 14:00 08/15/24 08:22 Ipratropium 0.5 Mg/Albuterol Sulfate 2.5 Mg Ampul.Neb 3 Ml INHALATION 3 ml Q6HRT TONY Administration Aspirin 81 mg 08/14/24 09:00 08/15/24 08:59 Aspirin 81 Mg Enteric Tablet PO 81 mg DAILY TONY Administration Atorvastatin Calcium 20 mg 08/14/24 09:00 08/15/24 08:57 Atorvastatin 20 Mg Tablet PO 20 mg DAILY TONY Administration Azithromycin 500 mg 08/14/24 22:00 08/14/24 20:45 Azithromycin 250 Mg Tablet PO 500 mg Q24H TONY Administration Buprenorphine/Naloxone 3 each 08/14/24 09:00 08/15/24 08:56 Buprenorphine/Naloxone (*Crx) 4 Mg/1 Mg Sl Film SUBLINGUAL 3 each TID TONY Administration Doxepin HCl 25 mg 08/14/24 08:43 Doxepin Hcl 25 Mg Capsule PO HS PRN insomnia Enoxaparin Sodium 40 mg 08/14/24 09:00 08/15/24 08:59 Enoxaparin 40 Mg/0.4 Ml Syringe SUB-Q 40 mg DAILY TONY Administration Folic Acid 1 mg 08/14/24 09:00 08/15/24 08:59 Folic Acid 1 Mg Tablet PO 1 mg DAILY TONY Administration Furosemide 40 mg 08/14/24 09:00 08/15/24 08:57 Furosemide 40 Mg Tablet PO 40 mg BID TONY Administration Guaifenesin 1,200 mg 08/14/24 09:00 08/15/24 08:59 Guaifenesin 12 Hr 600 Mg Tabcr PO 1,200 mg Q12HR TONY Administration Lactic Acid 1 applic 08/14/24 09:00 08/15/24 09:10 Lactic Acid 12% Lotion 225 Btl TOPICAL 1 applic QAM TONY Administration Metoprolol Tartrate 25 mg/ 37.5 mg 08/14/24 09:00 08/15/24 08:57 Metoprolol Tartrate 12.5 mg PO 37.5 mg DAILY TONY Administration Nicotine 1 patch 08/14/24 09:00 08/15/24 08:55 Nicotine (*Pbkc) 7 Mg Patch TRANSDERM 1 patch DAILY TONY Administration Ondansetron HCl 4 mg 08/14/24 08:41 Ondansetron Inj 4 Mg/2 Ml Vial IV PUSH Q6H PRN Nausea And Vomiting Pantoprazole Sodium 40 mg 08/14/24 09:00 08/15/24 08:59 Pantoprazole 40 Mg Tablet PO 40 mg QAM TONY Administration Thiamine HCl 100 mg 08/14/24 09:00 08/15/24 08:59 Thiamine Hcl 100 Mg Tablet PO 100 mg DAILY TONY Administration Radiology Results: ITS Impressions Chest X-Ray 08/13/24 22:54 IMPRESSION: Subsegmental right basilar and segmental left basilar atelectasis/consolidation. Moderate interstitial pulmonary edema. Chest CT 08/14/24 05:37 Impression: Moderate to advanced emphysema, especially in the upper lobes. Minimal bibasilar atelectatic change. Cholelithiasis and gallbladder sludge. Venous Doppler Study 08/14/24 13:22 IMPRESSION: Negative bilateral lower extremity venous US. No deep vein thrombosis. Chest CTA 08/14/24 16:29 IMPRESSION: No pulmonary embolus. No thoracic aortic dissection. Severe panlobular emphysematous disease with peripheral honeycombing and subpleural bullous formation. Labs Labs: Laboratory Results - last 24 hr 08/15/24 07:18 WBC 6.6 RBC 4.15 L Hgb 12.4 L Hct 40.3 L MCV 97.1 MCH 29.9 MCHC 30.8 L RDW 13.8 Plt Count 196 MPV 11.1 H Immature Gran % (Auto) 0.3 Neut % (Auto) 57.9 Lymph % (Auto) 25.0 [place] % (Auto) 8.8 H Eos % (Auto) 7.4 H Baso % (Auto) 0.6 Lymph # (Auto) 1.65 [place] # (Auto) 0.6 Eos # (Auto) 0.5 H Baso # (Auto) 0.0 Abs Immat Gran (auto) 0.02 Absolute Neuts (auto) 3.8 Absolute Nucleated RBC 0.000 Nucleated RBC % 0.0 % Immature Plt Fraction 5.1 Sodium 137 Potassium 3.8 Chloride 94 L Carbon Dioxide > 40 H Anion Gap BUN 17 Creatinine 0.81 Estim Creat Clear Calc 106 Estimated GFR > 60 Glucose 123 H Calcium 8.5 Total Bilirubin 0.5 AST 20 ALT 13 Alkaline Phosphatase 93 Total Protein 7.0 Albumin 3.8 Quality VTE Prophylaxis VTE prophylaxis: pharmacologic ordered
--- NOTE | 2024-08-15 11:18 | P.CDI_ITS ---
CDI Query Clarification Request Please specify type of heart failure if known. * Systolic * Diastolic * Combined Systolic and Diastolic * Unknown The medical chart reflects the following: (3) Acute exacerbation of chronic heart failure: Code(s): I50.9 - Heart failure, unspecified Status: Acute Assessment and Plan: Patient with history right-sided heart failure LVEF 60-65% with trace MR last echocardiogram 07/10/2024 (during last admission here). Patient's BNP was within normal limits on admission and CXR showed no pulmonary congestion he did receive 60 mg IV Lasix in the emergency department. BLE erythema appears to be more related to his PVD. BLE dopplers WDL 08/14. * Transition patient back to his oral Lasix 40 mg BID- tolerating fine * Continues his metoprolol and ASA * Continuous cardiac monitoring * Pt denies SOB He wears baseline 4 L nasal cannula and BiPAP q.h.s. patient presents to the emergency room with worsening respiratory status. Patient states that he has gained significant amounts of weight despite his normal Lasix dose of 40 mg b.i.d.. He states his legs are more swelling he feels like he is drowning in fluid. He is noted to be 88% on his 4 L nasal cannula in triage. Improved on 6 L nasal cannula to 90-94%. Endorses tachypnea and shortness of breath but no chest pain or chest tightness. Does not have any wheezing. States that he feels like this is his CHF acting up. Endorses wearing his compression stockings and lifting his legs but not having any improvement in his swelling. Denies any nausea, vomiting, abdominal pain, back pain, fever, chills. No recent illnesses or sick contacts. He was seen here last week for a CHF exacerbation and discharged home after moderate improvement.
[2024-08-15] MEDS: DOXEPIN HCL 25 MG CAPSULE PO (20:48)
[2024-08-15] MEDS: HYDROcodone/acetaminophen (*CRX) 5-325 MG TABLET 1 TAB PO (20:51)
[2024-08-15] MEDS: WATER FOR IRRIGATION, STERILE 500 ML BOTTLE (21:00)
[2024-08-15] MEDS: AZITHROMYCIN 250 MG TABLET 500 MG PO (21:27)
[2024-08-16] VITALS (21 sets, daily range): BP systolic 129–147; BP diastolic 66–90; PULSE 71–102; RESP 16–20; TEMP 35.7–37.1; O2SAT 95–100
[2024-08-16] MEDS: IPRATROPIUM 0.5 MG/ALBUTEROL SULFATE 2.5 MG AMPUL.NEB 3 ML INHALATION ×4 (03:02→20:27)
[2024-08-16] MEDS: HYDROcodone/acetaminophen (*CRX) 5-325 MG TABLET 1 TAB PO ×3 (05:52→21:01)
[2024-08-16 06:47] LABS: Basophils Absolute Auto 0.1 K/mm3 (0.0-0.1); Basophils Percent Auto 0.9 % (0.2-1.2); Eosinophils Absolute Auto 0.5 K/mm3 (0-0.3); Eosinophils Percent Auto 7.7 % (0-4.4); Hematocrit 39.3 % (42.0-52.0); Hemoglobin 11.8 g/dL (14.0-18.0); Immature Granulocyte Absolute 0.02 K/mm3 (0.00-0.031); Immature Granulocyte Percent A 0.3 % (0-0.5); Lymphocytes Percent Auto 25.7 % (18.3-44.2); Mean Corpuscular Hemoglobin 29.2 pg (26-34); Mean Corpuscular Volume 97.3 fl (80-100); Mean Platelet Volume 10.4 fl (7.4-10.4); Monocytes Absolute Auto 0.6 K/mm3 (0.1-0.6); Monocytes Percent Auto 8.6 % (2.6-8.5); Neutrophils Absolute Auto 3.8 K/mm3 (1.3-6.7); Neutrophils Percent Auto 56.8 % (45.5-73.1); Platelet Count Result 200 k/mm3 (150-375); Red Blood Count 4.04 M/mm3 (4.6-6.20); Red Cell Distribution Width 13.5 % (11.5-14.5); White Blood Count 6.6 K/mm3 (4.5-10.0)
[2024-08-16 06:55] LABS: Alanine Aminotransferase 13 U/L (6-50); Alkaline Phosphatase 92 U/L (38-126); Anion Gap 6 mmol/L (4-12); Aspartate Amino Transferase 22 U/L (17-59); Bilirubin,Total 0.4 mg/dL (0.2-1.3); Blood Urea Nitrogen 15 mg/dL (9-20); Calcium 8.7 mg/dL (8.4-10.2); Carbon Dioxide 36 mmol/L (22-30); Chloride 95 mmol/L (98-107); Estimated CRCL calculation 106 ml/min; Estimated Glomerular Filt Rate > 60; Glucose 109 mg/dL (65-110); Potassium 4.1 mmol/L (3.4-5.0); Sodium 137 mmol/L (137-145)
[2024-08-16] MEDS: BUPRENORPHINE/NALOXONE (*CRX) 4 MG/1 MG SL FILM 3 EACH SUBLINGUAL ×3 (08:37→16:40)
[2024-08-16] MEDS: ENOXAPARIN 40 MG/0.4 ML SYRINGE SUB-Q (08:43)
[2024-08-16] MEDS: FOLIC ACID 1 MG TABLET PO (08:43)
[2024-08-16] MEDS: METOPROLOL TARTRATE TAB 25 MG, METOPROLOL TARTRATE TAB 12.5 MG 37.5 MG PO (08:43)
[2024-08-16] MEDS: guaiFENesin 12 HR 600 MG TABCR 1200 MG PO ×2 (08:43→21:01)
[2024-08-16] MEDS: FUROSEMIDE 40 MG TABLET PO (08:43)
[2024-08-16] MEDS: ATORVASTATIN 20 MG TABLET PO (08:44)
[2024-08-16] MEDS: THIAMINE HCL 100 MG TABLET PO (08:44)
[2024-08-16] MEDS: PANTOPRAZOLE 40 MG TABLET PO (08:44)
[2024-08-16] MEDS: ASPIRIN 81 MG ENTERIC TABLET PO (08:44)
[2024-08-16] MEDS: NICOTINE (*PBKC) 7 MG PATCH 1 PATCH TRANSDERM (08:47)
[2024-08-16] MEDS: LACTIC ACID 12% LOTION 225 BTL 1 APPLIC TOPICAL (08:48)
--- NOTE | 2024-08-16 11:45 | P.PNIM_ITS ---
Progress Note: A&P Assessment and Plan (1) Acute hypoxic on chronic hypercapnic respiratory failure: Code(s): J96.01 - Acute respiratory failure with hypoxia; J96.12 - Chronic respiratory failure with hypercapnia Status: Acute Assessment and Plan: Patient discharged x1 month ago at which time he did see a ladle mechanic and was set up for a NIV at home, he is to wear at night and when he naps chronically. W ears 4 L supplemental oxygen for his emphysema. At time of admission patient was requiring 6 L to maintain 90% oxygen saturation. CT Chest showing worsening emphysema, reports non-compliance at home he was re-educated on the need to wear his NIV. * Weaned oxygen back to 4 L, active and stable on * NIV at night and with naps (PCO2 55.6 POA) - pt reports compliance with BIPAP at home with attached RT device which they track * Ordered Dimer to R/O PE - WDL * Remains hypercapnic at 36 but improving, will continue to trend and encourage O2 and BIPAP use * F/u with pulmonology outpatient (Dr. Yordan Cummings - [facility], August 2024) (2) COPD exacerbation: Code(s): J44.1 - Chronic obstructive pulmonary disease with (acute) exacerbation Status: Acute Assessment and Plan: Patient has chronic history emphysema chest CT showing worsening requiring increased oxygen requirements on admission follows with pulmonology outpatient. COVID/Influenza/RSV negative * Bronchodilators neb scheduled q6 * Incentive spirometry while awake - re-instructed on this today * Azithromycin 500mg x 5 days * Mucolytics * Supplemental oxygen therapy to maintain oxygen 92%/baseline 4L * NIV BIPAP at night and with naps * Disease management following GOLD guidelines. * Repeat hospitalization risk evaluation per [facility] * Follow-up with ladle mechanic as an outpatient (Next appt August 2024) * Expiratory wheezing throughout, started prednisone 40mg daily x5 days, first dose today - to continue on D/C (3) Acute exacerbation of chronic heart failure: Code(s): I50.9 - Heart failure, unspecified Status: Acute Assessment and Plan: Patient with history right-sided heart failure LVEF 60-65% with trace MR last echocardiogram 07/10/2024 (during last admission here). Patient's BNP was within normal limits on admission and CXR showed no pulmonary congestion he did receive 60 mg IV Lasix in the emergency department. BLE erythema appears to be more related to his PVD. BLE dopplers WDL 08/14. * Continues his metoprolol and ASA * Continuous cardiac monitoring * Pt denies SOB/CP/cough * Held PO lasix after AM dose today, switched to IV Lasix 40mg BID today to see if helps pull fluid off legs D/C Ariel around 1200, post void due ~1800 (4) Hypertension: Code(s): I10 - Essential (primary) hypertension Status: Acute Assessment and Plan: * Continued his metoprolol * BP per unit protocol, has been stable (5) Lower extremity edema: Code(s): R60.0 - Localized edema Status: Acute Assessment and Plan: Patient with bilateral lower extremity edema appears to be more related to PVD * Pt reports edema better today, L>R * Christa hose ordered today, reminded pt to continue to elevate legs here and at home (sleeps in recliner) * Held PO lasix after AM dose today, switched to IV lasix 40mg BID today to see if helps pull fluid off legs (6) Tobacco abuse disorder: Code(s): Z72.0 - Tobacco use Status: Acute Assessment and Plan: * Resume patient's nicotine patch * Encouraged smoking cessation again today and risks of active smoking with O2 use. (7) Alcohol abuse: Code(s): F10.10 - Alcohol abuse, uncomplicated Status: Acute Assessment and Plan: * CIWA daily * Continued Thiamine and folic acid * Reports x2 double shots of Fireball at night time (8) History of intravenous drug use in remission: Code(s): Z87.898 - Personal history of other specified conditions Status: Acute Assessment and Plan: * Continued his Suboxone * Denies recent drug use (9) Hyperlipemia: Code(s): E78.5 - Hyperlipidemia, unspecified Status: Acute Assessment and Plan: * Continued his atorvastatin * Negative for bruit on exam Plan Code status: Full code per patient DVT prophylaxis: Lovenox 40 daily Stress ulcer prophylaxis: Protonix 40 daily PT/OT notes: Ambulatory Disposition: Patient continues admission to the medical unit for treatment of acute on chronic respiratory failure with hypoxia and hypercapnia secondary to COPD exacerbation and underlying CHF exacerbation. Patient reports he has been noncompliant with his NIV at home and is still currently smoking. Patient is ambulatory at home and will return home at discharge he has home oxygen at 4 L and NIV. Goals: Decrease BLE edema, continue therapy to help better ambulate while at home, stable on 4L NC, normalize labs back to baseline Subjective Date/time seen: 08/16/24 0920 Interval history: Pt seen today and he was sitting up on the side of his bed on 4L NC O2, which is his home baseline. Pt denies CP and SOB but continues to have BLE edema L>R, requested CHRISTA mccormick via nursing today. Also reports compliance with his IS at bedside. Pt remains hypercapnic but continues to trend down with today's AM lab draw at 36mmol/L. Reports today that he uses a cane/walker at home to ambulate. Pt states today that he has a dental appt tomorrow at 1400 that he cannot miss, he states that he will have to sign out AMA tomorrow if he cannot leave. I am hopeful since pt is almost back to his baseline, that D/C int he AM tomorrow is possible. Ariel pulled today, awaiting decreased BLE edema with IV lasix. -Pulm outpt - Dr. Yordan Cummings ([facility]), last seen June 25, 2024 - next appt 08/2024 - referred by PCP -Cards outpt - Does not currently have, PCP manages CHF per daughter -BIPAP - 4L bleed in when sleeps Review of Systems Review of Systems: All systems reviewed & are unremarkable except as noted in HPI and below Exam Const: General: no acute distress HENMT: Face/Nose/Sinus: Normal nares present Mouth: Yes moist mucous membranes Eyes: General: appearance normal, both eyes and all related structures Sclera: sclerae normal Pupils: Equal, round and reactive pupils present Neck: Neck: supple and no JVD Carotids: no bruits Resp: Auscultation: wheezes expiratory wheezes Other: throughout Cardio: Rate: regular rate Rhythm: regular rhythm GI: Auscultation: normal bowel sounds : Other: D/C George around 1200, post void due ~1800 Skin: General skin exam: no rashes or lesions noted Wounds: no wounds Other: BLE venous stasis with erythema. BLE L 2+, R 1+ Neuro: Speech: normal speech Motor exam (neuro): 5/5 motor strength present throughout Sensory Exam: normal sensation Extrem: Other: SEE SKIN Psych: Mental Status: mental status grossly normal Affect: normal affect Objective Data Vital Signs Vital Signs: Vital Signs - 24 hr 08/15/24 12:00 08/15/24 13:11 08/15/24 13:21 Temperature Pulse Rate 87 82 81 Respiratory Rate 18 18 Blood Pressure Pulse Oximetry Oxygen Delivery Oxygen Flow Rate 08/15/24 14:00 08/15/24 16:00 08/15/24 20:02 Temperature 98.8 F Pulse Rate 84 71 81 Respiratory Rate 20 Blood Pressure 120/73 Pulse Oximetry 92 Oxygen Delivery Oxygen Flow Rate 08/15/24 20:32 08/15/24 20:35 08/15/24 20:44 Temperature Pulse Rate 88 88 87 Respiratory Rate 18 18 18 Blood Pressure Pulse Oximetry 92 Oxygen Delivery High Flow Nasal Cannula Oxygen Flow Rate 4 08/15/24 20:50 08/15/24 22:00 08/15/24 23:47 Temperature 97.4 F L Pulse Rate 92 92 89 Respiratory Rate 16 16 10 L Blood Pressure 131/67 Pulse Oximetry 91 91 95 Oxygen Delivery High Flow Nasal Cannula CPAP Oxygen Flow Rate 4 08/16/24 00:02 08/16/24 03:04 08/16/24 03:14 Temperature Pulse Rate 74 95 95 Respiratory Rate 18 18 Blood Pressure Pulse Oximetry Oxygen Delivery Oxygen Flow Rate 08/16/24 04:00 08/16/24 06:00 08/16/24 07:38 Temperature 96.3 F L Pulse Rate 86 78 Respiratory Rate 16 Blood Pressure 129/66 Pulse Oximetry 99 97 Oxygen Delivery High Flow Nasal Cannula Oxygen Flow Rate 4 08/16/24 07:38 08/16/24 07:43 08/16/24 08:01 Temperature Pulse Rate 77 71 91 Respiratory Rate 16 16 Blood Pressure Pulse Oximetry Oxygen Delivery Oxygen Flow Rate 08/16/24 08:30 08/16/24 08:43 Temperature Pulse Rate 71 Respiratory Rate 16 Blood Pressure Pulse Oximetry 97 Oxygen Delivery High Flow Nasal Cannula Oxygen Flow Rate 4 Intake/Output Intake/Output: Intake & Output 08/13/24 08/14/24 08/15/24 08/16/24 23:59 23:59 23:59 23:59 Intake Total 2520 4220 480 Output Total 850 3150 700 Balance 1670 1070 -220 Meds/Results Medications: Active Medications Generic Name Dose Route Start Last Admin Trade Name Freq PRN Reason Stop Dose Admin Acetaminophen 650 mg 08/14/24 08:41 Acetaminophen 325 Mg Tablet PO Q4H PRN Mild Pain (1-3) or Fever Hydrocodone Bitart/Acetaminophen 1 tab 08/14/24 08:41 08/16/24 05:52 Hydrocodone/Acetaminophen (*Crx) 5-325 Mg Tablet PO 1 tab Q4H PRN Administration Moderate Pain (4-6) Albuterol/Ipratropium 3 ml 08/14/24 14:00 08/16/24 07:37 Ipratropium 0.5 Mg/Albuterol Sulfate 2.5 Mg Ampul.Neb 3 Ml INHALATION 3 ml Q6HRT TONY Administration Aspirin 81 mg 08/14/24 09:00 08/16/24 08:44 Aspirin 81 Mg Enteric Tablet PO 81 mg DAILY TONY Administration Atorvastatin Calcium 20 mg 08/14/24 09:00 08/16/24 08:44 Atorvastatin 20 Mg Tablet PO 20 mg DAILY TONY Administration Azithromycin 500 mg 08/14/24 22:00 08/15/24 21:27 Azithromycin 250 Mg Tablet PO 500 mg Q24H TONY Administration Buprenorphine/Naloxone 3 each 08/14/24 09:00 08/16/24 08:37 Buprenorphine/Naloxone (*Crx) 4 Mg/1 Mg Sl Film SUBLINGUAL 3 each TID TONY Administration Doxepin HCl 25 mg 08/14/24 08:43 08/15/24 20:48 Doxepin Hcl 25 Mg Capsule PO 25 mg HS PRN Administration insomnia Enoxaparin Sodium 40 mg 08/14/24 09:00 08/16/24 08:43 Enoxaparin 40 Mg/0.4 Ml Syringe SUB-Q 40 mg DAILY TONY Administration Folic Acid 1 mg 08/14/24 09:00 08/16/24 08:43 Folic Acid 1 Mg Tablet PO 1 mg DAILY TONY Administration Furosemide 40 mg 08/14/24 09:00 08/16/24 08:43 Furosemide 40 Mg Tablet PO 40 mg BID TONY Administration Guaifenesin 1,200 mg 08/14/24 09:00 08/16/24 08:43 Guaifenesin 12 Hr 600 Mg Tabcr PO 1,200 mg Q12HR TONY Administration Lactic Acid 1 applic 08/14/24 09:00 08/16/24 08:48 Lactic Acid 12% Lotion 225 Btl TOPICAL 1 applic QAM TONY Administration Metoprolol Tartrate 25 mg/ 37.5 mg 08/14/24 09:00 08/16/24 08:43 Metoprolol Tartrate 12.5 mg PO 37.5 mg DAILY TONY Administration Nicotine 1 patch 08/14/24 09:00 08/16/24 08:47 Nicotine (*Pbkc) 7 Mg Patch TRANSDERM 1 patch DAILY TONY Administration Ondansetron HCl 4 mg 08/14/24 08:41 Ondansetron Inj 4 Mg/2 Ml Vial IV PUSH Q6H PRN Nausea And Vomiting Pantoprazole Sodium 40 mg 08/14/24 09:00 08/16/24 08:44 Pantoprazole 40 Mg Tablet PO 40 mg QAM TONY Administration Thiamine HCl 100 mg 08/14/24 09:00 08/16/24 08:44 Thiamine Hcl 100 Mg Tablet PO 100 mg DAILY TONY Administration Radiology Results: ITS Impressions Chest X-Ray 08/13/24 22:54 IMPRESSION: Subsegmental right basilar and segmental left basilar atelectasis/consolidation. Moderate interstitial pulmonary edema. Chest CT 08/14/24 05:37 Impression: Moderate to advanced emphysema, especially in the upper lobes. Minimal bibasilar atelectatic change. Cholelithiasis and gallbladder sludge. Venous Doppler Study 08/14/24 13:22 IMPRESSION: Negative bilateral lower extremity venous US. No deep vein thrombosis. Chest CTA 08/14/24 16:29 IMPRESSION: No pulmonary embolus. No thoracic aortic dissection. Severe panlobular emphysematous disease with peripheral honeycombing and subpleural bullous formation. Labs Labs: Laboratory Results - last 24 hr 08/16/24 06:41 WBC 6.6 RBC 4.04 L Hgb 11.8 L Hct 39.3 L MCV 97.3 MCH 29.2 MCHC 30.0 L RDW 13.5 Plt Count 200 MPV 10.4 Immature Gran % (Auto) 0.3 Neut % (Auto) 56.8 Lymph % (Auto) 25.7 [place] % (Auto) 8.6 H Eos % (Auto) 7.7 H Baso % (Auto) 0.9 Lymph # (Auto) 1.70 [place] # (Auto) 0.6 Eos # (Auto) 0.5 H Baso # (Auto) 0.1 Abs Immat Gran (auto) 0.02 Absolute Neuts (auto) 3.8 Absolute Nucleated RBC 0.000 Nucleated RBC % 0.0 Sodium 137 Potassium 4.1 Chloride 95 L Carbon Dioxide 36 H Anion Gap 6 BUN 15 Creatinine 0.81 Estim Creat Clear Calc 106 Estimated GFR > 60 Glucose 109 Calcium 8.7 Total Bilirubin 0.4 AST 22 ALT 13 Alkaline Phosphatase 92 Total Protein 8.0 Albumin 4.0 Quality VTE Prophylaxis VTE prophylaxis: pharmacologic ordered
[2024-08-16] MEDS: FUROSEMIDE INJ 40 MG/4 ML VIAL IV PUSH (12:23)
[2024-08-16] MEDS: predniSONE 20 MG TABLET 40 MG PO (12:23)
[2024-08-16] MEDS: AZITHROMYCIN 250 MG TABLET 500 MG PO (21:01)
[2024-08-16] MEDS: DOXEPIN HCL 25 MG CAPSULE PO (23:26)
[2024-08-17] VITALS (9 sets, daily range): BP systolic 146–153; BP diastolic 77–78; PULSE 91–109; RESP 16–20; TEMP 36.9; O2SAT 94–96
[2024-08-17] MEDS: IPRATROPIUM 0.5 MG/ALBUTEROL SULFATE 2.5 MG AMPUL.NEB 3 ML INHALATION ×2 (02:04→08:53)
[2024-08-17 06:15] LABS: Basophils Percent Auto 0.2 % (0.2-1.2); Eosinophils Absolute Auto 0.1 K/mm3 (0-0.3); Eosinophils Percent Auto 1.3 % (0-4.4); Hematocrit 40.6 % (42.0-52.0); Hemoglobin 12.4 g/dL (14.0-18.0); Immature Granulocyte Absolute 0.03 K/mm3 (0.00-0.031); Immature Granulocyte Percent A 0.3 % (0-0.5); Lymphocytes Percent Auto 16.1 % (18.3-44.2); Mean Corpuscular HGB Conc 30.5 g/dl (32-36); Mean Corpuscular Hemoglobin 29.4 pg (26-34); Mean Corpuscular Volume 96.2 fl (80-100); Mean Platelet Volume 10.6 fl (7.4-10.4); Monocytes Absolute Auto 0.8 K/mm3 (0.1-0.6); Monocytes Percent Auto 9.3 % (2.6-8.5); Neutrophils Absolute Auto 6.4 K/mm3 (1.3-6.7); Neutrophils Percent Auto 72.8 % (45.5-73.1); Platelet Count Result 250 k/mm3 (150-375); Red Blood Count 4.22 M/mm3 (4.6-6.20); Red Cell Distribution Width 13.5 % (11.5-14.5); White Blood Count 8.7 K/mm3 (4.5-10.0)
[2024-08-17 06:31] LABS: Alanine Aminotransferase 14 U/L (6-50); Albumin Level 4.5 g/dL (3.5-5.1); Alkaline Phosphatase 91 U/L (38-126); Anion Gap 8 mmol/L (4-12); Aspartate Amino Transferase 22 U/L (17-59); Bilirubin,Total 0.3 mg/dL (0.2-1.3); Blood Urea Nitrogen 18 mg/dL (9-20); Carbon Dioxide 33 mmol/L (22-30); Chloride 97 mmol/L (98-107); Estimated CRCL calculation 107 ml/min; Estimated Glomerular Filt Rate > 60; Glucose 96 mg/dL (65-110); Potassium 4.5 mmol/L (3.4-5.0); Sodium 138 mmol/L (137-145)
[2024-08-17] MEDS: BUPRENORPHINE/NALOXONE (*CRX) 4 MG/1 MG SL FILM 3 EACH SUBLINGUAL (08:40)
[2024-08-17] MEDS: FUROSEMIDE INJ 40 MG/4 ML VIAL IV PUSH (08:40)
[2024-08-17] MEDS: NICOTINE (*PBKC) 7 MG PATCH 1 PATCH TRANSDERM (08:40)
[2024-08-17] MEDS: FOLIC ACID 1 MG TABLET PO (08:40)
[2024-08-17] MEDS: guaiFENesin 12 HR 600 MG TABCR 1200 MG PO (08:40)
[2024-08-17] MEDS: METOPROLOL TARTRATE TAB 25 MG, METOPROLOL TARTRATE TAB 12.5 MG 37.5 MG PO (08:40)
[2024-08-17] MEDS: ASPIRIN 81 MG ENTERIC TABLET PO (08:41)
[2024-08-17] MEDS: THIAMINE HCL 100 MG TABLET PO (08:41)
[2024-08-17] MEDS: PANTOPRAZOLE 40 MG TABLET PO (08:41)
[2024-08-17] MEDS: ATORVASTATIN 20 MG TABLET PO (08:41)
[2024-08-17] MEDS: predniSONE 20 MG TABLET 40 MG PO (08:41)
[2024-08-17] MEDS: LACTIC ACID 12% LOTION 225 BTL 1 APPLIC TOPICAL (08:42)
--- NOTE | 2024-08-17 09:18 | P.DS_ITS ---
DS: Admitting Diagnosis Discharge Date 08/17/2024 Admitting Diagnosis CHF/COPD exacerbation, PVD DS: Discharge Diagnosis Discharge Diagnosis (1) Acute hypoxic on chronic hypercapnic respiratory failure: Code(s): J96.01 - Acute respiratory failure with hypoxia; J96.12 - Chronic respiratory failure with hypercapnia Status: Acute Assessment and Plan: Patient discharged x1 month ago at which time he did see a torpedoman's mate and was set up for a NIV at home, he is to wear at night and when he naps chronically. Wears 4 L supplemental oxygen for his emphysema. At time of admission patient was requiring 6 L to maintain 90% oxygen saturation. CT Chest showing worsening emphysema, reports non-compliance at home he was re-educated on the need to wear his NIV. * Weaned oxygen back to 4 L, active and stable on * NIV at night and with naps (PCO2 55.6 POA) - pt reports compliance with BIPAP at home with attached RT device which they track * Ordered Dimer to R/O PE - WDL * Remains hypercapnic at 33 but improving, will continue to trend and encourage O2 and BIPAP use * F/u with pulmonology outpatient (Dr. Yordan Cummings - [place], August 2024) (2) COPD exacerbation: Code(s): J44.1 - Chronic obstructive pulmonary disease with (acute) exacerbation Status: Acute Assessment and Plan: Patient has chronic history emphysema chest CT showing worsening requiring increased oxygen requirements on admission follows with pulmonology outpatient. COVID/Influenza/RSV negative * Bronchodilators neb scheduled q6 * Incentive spirometry while awake, pt to take home * Azithromycin 500mg x 5 days - rx ordered at d/c for remaining x3 days * Mucolytics while inpt * Supplemental oxygen therapy to maintain oxygen 92%/baseline 4L * NIV BIPAP at night and with naps * Disease management following GOLD guidelines. * Repeat hospitalization risk evaluation per [facility] * Follow-up with torpedoman's mate as an outpatient (Next appt August 2024) * Expiratory wheezing throughout, better today, started prednisone 40mg daily x5 days yesterday - rx ordered at d/c for remaining x3 days (3) Acute exacerbation of chronic heart failure: Code(s): I50.9 - Heart failure, unspecified Status: Acute Assessment and Plan: Patient with history right-sided heart failure LVEF 60-65% with trace MR last echocardiogram 07/10/2024 (during last admission here). Patient's BNP was within normal limits on admission and CXR showed no pulmonary congestion he did receive 60 mg IV Lasix in the emergency department. BLE erythema appears to be more related to his PVD. BLE dopplers WDL 08/14. * Continue metoprolol and ASA * BLE edema appearing much better today, continue lasix, christa hose, and elevation when D/C * Pt denies SOB/CP/cough * D/C with increased Lasix dose 60mg BID x1 week then proceed with normal dose of 40mg BID * Need to f/u with cardiology, referral attached to D/C paperwork (4) Hypertension: Code(s): I10 - Essential (primary) hypertension Status: Acute Assessment and Plan: * Continued his metoprolol * BP per unit protocol, has been stable * Encouraged pt to take his BP at home, 1-2 hours after daily HTN medication, and keep a log of it to take to PCP/cards providers (5) Lower extremity edema: Code(s): R60.0 - Localized edema Status: Acute Assessment and Plan: Patient with bilateral lower extremity edema appears to be more related to PVD * BLE edema much better today * D/C with increased Lasix dose 60mg BID x1 week then proceed with normal dose of 40mg BID * Establish care with cardiology via referral * Continue with CHRISTA mccormick and elevation at home (6) Tobacco abuse disorder: Code(s): Z72.0 - Tobacco use Status: Acute Assessment and Plan: * Encouraged smoking cessation again today and risks of active smoking with O2 use. (7) Alcohol abuse: Code(s): F10.10 - Alcohol abuse, uncomplicated Status: Acute Assessment and Plan: * LAXMI has been stable * Continued Thiamine and folic acid * Reports x2 double shots of Fireball at night time, educated him on cessation (8) History of intravenous drug use in remission: Code(s): Z87.898 - Personal history of other specified conditions Status: Acute Assessment and Plan: * Continued his Suboxone * Denies recent drug use (9) Hyperlipemia: Code(s): E78.5 - Hyperlipidemia, unspecified Status: Acute Assessment and Plan: * Continued his atorvastatin * Negative for bruit on exam Plan D/C today with plan to f/u with PCP in 1-2 weeks and establish care with cards via referral in the next month. CHF needing to be monitored more closely to avoid subsequent admission. Continue on x3 more days of azithromycin and prednisone for COPD exacerbation. Increase Lasix to 60mg BID x1 week and then back to his baseline 40mg BID after that to help continue to diurese. Pt requesting x1 month worth of doxepin so he can sleep (only thing that helps after multiple failed interventions) states he will be able to get back into the doctor who can rx this within the next month. Continue to wear BIPAP at home. DS: Summary Hospital Course Reason for hospitalization: CHF/COPD exacerbation. Hospital Course: Pt came to the ED with SOB, he wears 4L at baseline (and BIPAP when sleeps) and needed to be increased to 6L NC to maintain an appropriate oxygen saturation. Pt also c/o BLE swelling and considerable weight loss of 10+ lbs over the last week, he takes 40mg BID lasix. Pt also here for a recent CHF exacerbation and discharged home. Pt has an outpatient torpedoman's mate that he sees this month but does not have a manuscript editor. Pt lives with his daughter Tammy. CXR & CT of the chest with contrast was obtained which showed advanced emphysematous lungs, pleural scarring, superimposed aspirate versus infectious not excluded and borderline cardiomegaly. Pt treated with Lasix 60mg IV in the ED and responded well. Other VSS. Blood gas shows compensated pH without any significant derangements chronic CO2 retention is noted but other labs unremarkable. Pt with a recent ECHO during last admission in June 2024 yielding at 60-65% EF. Pt still smoking x3 cigarettes a day as well as vaping when he has a craving , discussed cessation with him multiple times. During this hospitalization, pt returned to pulmonary baseline of 4L NC with no SOB. Pt was given azithromycin and prednisone x5 days due to some exp wheezing and potentially COPD exacerbation, these to be continued at D/C for their full duration. Pt's main concern was his BLE edema in which he was given x2 doses of inpt IV lasix of 40mg to help diurese him, which really helped by day of discharge. D/C with increased of lasix dose of 60mg BID x1 week and then remain on baseline dose of 40mg BID. Pt to f/u with PCP for lab work and eval as well as establish with a manuscript editor for his CHF/PVD. Time spent discussing smoking cessation with patient: 3 to 10 minutes Status at Discharge Functional status at discharge: uses cane/walker Overall status at discharge: patient is progressing back to baseline Time Spent with Patient Time attestation: Total time spent providing and/or coordinating discharge services: Exam Const: General: comfortable and no acute distress Eyes: General: appearance normal, both eyes and all related structures Sclera: sclerae normal Neck: Neck: supple and no JVD Carotids: no bruits Resp: Effort & Inspection: normal respiratory effort Auscultation: wheezes expiratory wheezes Other: faint, heard throughout, better than yesterday Cardio: Rate: regular rate Rhythm: regular rhythm GI: GI Palp: Yes Soft to palpation and No Tenderness to palpation present (GI) Auscultation: normal bowel sounds Skin: General skin exam: normal color and no rashes or lesions noted Wounds: no wounds Other: BLE venous stasis with erythema. LLE 1+ Neuro: Motor exam (neuro): Normal motor muscle tone present throughout Se nsory Exam: normal sensation Other: A&O x4 Extrem: Other: SEE SKIN Psych: Mental Status: mental status grossly normal Affect: normal affect DS: Data Data Completed and Pending Labs on day of discharge: Labs from last 24 hours 08/17/24 05:41 WBC 8.7 RBC 4.22 L Hgb 12.4 L Hct 40.6 L MCV 96.2 MCH 29.4 MCHC 30.5 L RDW 13.5 Plt Count 250 MPV 10.6 H Immature Gran % (Auto) 0.3 Neut % (Auto) 72.8 Lymph % (Auto) 16.1 L [place] % (Auto) 9.3 H Eos % (Auto) 1.3 Baso % (Auto) 0.2 Lymph # (Auto) 1.40 [place]on # (Auto) 0.8 H Eos # (Auto) 0.1 Baso # (Auto) 0.0 Abs Immat Gran (auto) 0.03 Absolute Neuts (auto) 6.4 Absolute Nucleated RBC 0.000 Nucleated RBC % 0.0 Sodium 138 Potassium 4.5 Chloride 97 L Carbon Dioxide 33 H Anion Gap 8 BUN 18 Creatinine 0.80 Estim Creat Clear Calc 107 Estimated GFR > 60 Glucose 96 Calcium 9.0 Total Bilirubin 0.3 AST 22 ALT 14 Alkaline Phosphatase 91 Total Protein 8.0 Albumin 4.5 Preliminary micro results at discharge 08/14/24 00:41 Blood Culture - Preliminary Blood 08/14/24 00:41 Blood Culture - Preliminary Blood Discharge Plan Discharge Attending physician on discharge: Jc Alejandro Consulting providers: Prisca Johnson; Elisabeth,Yordan Wagner Discharging Clinician: Ericka Palomares Anticipated Discharge Date/Time: 08/17/24 10:00 Patient Disposition: Home Activity: may shower Diet: low sodium Discharge Instructions: 1. Follow-up with your primary care provider in 1-2 for repeat labs and medication renewals 2. Make an appt with the manuscript editor office listed so we can better control your heart failure and leg swelling so you do not have to come back to the hospital 3. Take 3 days more of the prednisone (steroid) to help clear your lungs 4. Take 1 weeks worth of the increased dose of Furosemide (Lasix) 60mg twice daily, and then continue with your baseline dose of 40mg twice daily to help control the swelling in your legs and shortness of breath, this is also why we need you to establish care with a manuscript editor. 5. Take 3 days more of the azithromycin (antibiotic) to help clear your lungs and help your COPD 6. Remember that you can always come back to the ER if you have COPD or increased leg swelling. Remember to take your medication daily to help prevent these things. Patient Instructions: Antibiotic Form, Furosemide (By mouth), Heart Failure (DC), Leg Edema (ED), Chronic Lung Disease and Infection Prevention (DC) Patient Language: Mohawk Stand Alone Forms: General Discharge Information Follow-up/Referrals: MarciaDominick M.D. [Primary Care Provider] - 2 Weeks (f/u with CHF/COPD/PVD) Jeniffer Ngo MD [Physician] - 4 Weeks (CHF exacerbation, tachy episode) Discharge Medications: New furosemide 40 mg Tablet 40 mg PO BID 30 Days Qty: 60 2RF azithromycin [Zithromax] 250 mg Tablet 500 mg PO Q24H 3 Days Qty: 6 0RF prednisone 20 mg Tablet 40 mg PO DAILY@0800 3 Days Qty: 6 0RF furosemide 20 mg tablet 60 mg PO BID 7 Days Qty: 42 0RF Continued ammonium lactate 12 % lotion 1 applic TOPICAL BID Rx Instructions: apply to bilateral legs BID atorvastatin 20 mg tablet 20 mg PO DAILY metoprolol tartrate 37.5 mg tablet 37.5 mg PO DAILY buprenorphine-naloxone 12-3 mg film 1 film sublingual TID prednisone 20 mg Tablet 40 mg PO DAILY@0800 Qty: 6 0RF thiamine HCl (vitamin B1) [Vitamin B-1] 100 mg Tablet 100 mg PO DAILY Qty: 14 0RF folic acid 1 mg Tablet 1 mg PO DAILY Qty: 14 0RF Lac-Hydrin Five 5 % Lotion 1 applic topical QAM Qty: 226 0RF ipratropium-albuterol 0.5 mg-3 mg(2.5 mg base)/3 mL solution for nebulization 3 ml inhalation Q6H PRN (Reason: shortness of breath or wheezing) Qty: 90 0RF aspirin 81 mg tablet,delayed release (DR/EC) 81 mg PO DAILY albuterol sulfate 90 mcg/actuation HFA aerosol inhaler 2 puff INHALATION QID PRN (Reason: Shortness Of Breath Or Wheezing) doxepin 25 mg capsule 25 mg PO HS PRN (Reason: insomnia) Qty: 30 0RF Discontinued furosemide [Lasix] 40 mg tablet 40 mg PO BID nicotine 7 mg/24 hr Patch 24 Hour 1 patch transdermal DAILY Qty: 14 0RF (DME) nebulizer and compressor Device See Rx Instructions .Route Qty: 1 0RF Rx Instructions: As directed furosemide [Lasix] 40 mg tablet 40 mg PO BID Qty: 60 0RF Date of admission: 08/14/24 11:05 Primary Care Provider: MarciaDominick Admitting Provider: Kiana Yuen Attending physician on admission: Kiana Yuen Condition: Stable Quality VTE Prophylaxis VTE prophylaxis: pharmacologic ordered
== END 2024-08-17 13:10 | disposition home or self-care (01) | DRG 133 ==
LOC: ANHED 08-14 03:43 → ANH3MEDSUR 08-14 03:45
PROVIDERS: Emergency Medicine; Nurse Practitioner Family; Admitting Provider Internal Medicine; Emergency Provider Student in an Organized Health Care Education/Training Program; PCP Internal Medicine Infectious Disease
DX: J96.21 Acute and chronic respiratory failure with hypoxia (principal); I11.0 Hypertensive heart disease with heart failure; J96.22 Acute and chronic respiratory failure with hypercapnia; J43.9 Emphysema, unspecified; Z20.822 Contact with and (suspected) exposure to COVID-19; Z91.148 Patient's other noncompliance with medication regimen for other reason; I73.9 Peripheral vascular disease, unspecified; I50.813 Acute on chronic right heart failure; I25.10 Atherosclerotic heart disease of native coronary artery without angina pectoris; E87.6 Hypokalemia; E78.5 Hyperlipidemia, unspecified; F17.210 Nicotine dependence, cigarettes, uncomplicated; M19.90 Unspecified osteoarthritis, unspecified site; F10.20 Alcohol dependence, uncomplicated; Z99.81 Dependence on supplemental oxygen; Z87.898 Personal history of other specified conditions; Z91.199 Patient's noncompliance with other medical treatment and regimen due to unspecified reason
CPT/HCPCS: 36415; 36600; 71045; 71260; 71275; 80053; 82375; 82805; 83050; 83605; 83735; 83880; 84484; 85018; 85025; 85055; 85380; 87040; 87637; 93005; 93970; 94640; 96365; 96367; 96375; 99291; A9270; G0378; G0379; J0456; J0696; J1650; J1938; J7512; Q9967

== ENCOUNTER 2024-09-18 18:26 | Inpatient (IN) | payer OTHER, SELFPAY ==
[2024-09-18] VITALS (18 sets, daily range): BP systolic 113–144; BP diastolic 60–95; PULSE 85–107; RESP 14–24; TEMP 36.3–36.6; O2SAT 77–97; BMI 37.7; BMI 37.8
--- NOTE | ~2024-09-18 | CT_ITS ---
CT diagnostic chest w con Ordering provider: Jorden Ch MD History: 64 years Male with . suspected mass . Comparison: None. Technique: CT chest with IV contrast. Radiation reduction technique utilized.The dose-length product was 925.20 mGy-cm. 75 mL Omnipaque 350 was given IV. Findings: VISUALIZED THORACIC INLET: Normal. MEDIASTINUM: Aorta/coronary arteries: Mild atheromatous disease. Heart/other: The heart is not enlarged. Lymph nodes: No mediastinal or hilar adenopathy. Precarinal lymph node is seen measuring 1.5 cm. Righ t hilar lymph node is also seen measuring 1.2 cm. Prevascular lymph nodes are also noted measuring 1. 9 and 1.6 cm. LUNGS: Emphysematous changes of the lungs. Atelectatic changes seen in the left lung base posteriorly and in the lingula. No pulmonary nodules or masses. No effusions. No pneumothorax. Opacity seen in t he left costophrenic angle is fatty in nature. Right apical tiny granuloma. VISUALIZED UPPER ABDOMEN: Cholelithiasis. Atrophic pancreas. Small soft tissue density seen in the le ft kidney anteriorly which may be a cyst. Otherwise, the visualized upper abdomen is normal. MUSCULOSKELETAL: Soft tissues: The superficial soft tissues are normal. Bones: Age appropriate degenerative changes of the spine. Healed fracture is seen in the left fifth, sixth, seventh, eighth, ninth and 10th rib. IMPRESSION: No evidence of mass is seen. The soft tissue density seen in the left costophrenic angle is fatty in nature. Left basilar subsegmental atelectasis. Mediastinal lymphadenopathy. Cholelithiasis Underlying emphysematous changes. Reviewed, dictated and finalized at location A. IMPRESSION: No evidence of mass is seen. The soft tissue density seen in the left costophre brice angle is fatty in nature. Left basilar subsegmental atelectasis. Mediastinal lymphadenopathy. Cholelithiasis Underlying emphysematous changes.
--- NOTE | ~2024-09-18 | XR_ITS ---
XR chest 1V portable Ordering provider: Jorden Ch MD History: 64 years Male with . sob, leg swelling . Comparison: August 13, 2024 FINDINGS: MEDIASTINUM: The cardiac silhouette is slightly enlarged. Congestive krishan. LUNGS: No pneumothorax. Bilateral alveolar and interstitial opacification suggestive of pulmonary edema with highly suggestiv e superimposed pneumonitis. Opacification in the left lung base laterally which is unchanged and may represent a mass. CT evaluation advised. Minimal effusion is not excluded. OTHER: No free air under the diaphragm. IMPRESSION: Cardiomegaly with cardiac decompensation and pulmonary edema. Superimposed pneumonitis is highly sugg estive. Opacity in the left costophrenic angle which may indicate a mass measuring 4.[address] evaluatio n advised. Reviewed, dictated and finalized at location A. IMPRESSION: Cardiomegaly with cardiac decompensation and pulmonary edema. Superimposed pneu monitis is highly suggestive. Opacity in the left costophrenic angle which may indicate a mass measuring 4.[address] evaluation advised.
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
--- NOTE | 2024-09-18 18:40 | ECG_ITS ---
Test Date: 2024-09-18 18:41:03 Measurements Intervals Pooler Rate: 104 P: 68 CO: 196 QRS: 60 QRSD: 104 T: 61 QT: 351 QTc: 462 Interpretive Statements SINUS TACHYCARDIA INCOMPLETE RIGHT BUNDLE BRANCH BLOCK BASELINE ARTIFACT- I, II, III, AVR, AVL BORDERLINE ECG Compared to ECG 08/13/2024 22:24:08 No significant changes Electronically Signed On 09-19-2024 07:09:58 CDT by Dionicio Danielle D.O.
[2024-09-18 18:58] LABS: Basophils Absolute Auto 0.1 K/mm3 (0.0-0.1); Basophils Percent Auto 0.9 % (0.2-1.2); Eosinophils Absolute Auto 0.9 K/mm3 (0-0.3); Hematocrit 40.3 % (42.0-52.0); Hemoglobin 12.4 g/dL (14.0-18.0); Immature Granulocyte Absolute 0.03 K/mm3 (0.00-0.031); Immature Granulocyte Percent A 0.4 % (0-0.5); Lymphocytes Absolute Auto 1.33 K/mm3 (0.9-3.2); Lymphocytes Percent Auto 16.6 % (18.3-44.2); Mean Corpuscular HGB Conc 30.8 g/dl (32-36); Mean Corpuscular Hemoglobin 29.3 pg (26-34); Mean Corpuscular Volume 95.3 fl (80-100); Mean Platelet Volume 10.2 fl (7.4-10.4); Monocytes Absolute Auto 0.7 K/mm3 (0.1-0.6); Monocytes Percent Auto 9.3 % (2.6-8.5); Neutrophils Absolute Auto 4.9 K/mm3 (1.3-6.7); Neutrophils Percent Auto 61.8 % (45.5-73.1); Platelet Count Result 242 k/mm3 (150-375); Red Blood Count 4.23 M/mm3 (4.6-6.20); Red Cell Distribution Width 13.5 % (11.5-14.5)
--- NOTE | 2024-09-18 19:00 | PC.NURSE ---
Dr. michelle notified of pt. condition and to bedside. ED respiratory also called to bedside. Pt daughter at bedside. Pt. and daughter updated.
[2024-09-18 19:07] LABS: Alanine Aminotransferase 13 U/L (6-50); Albumin Level 4.3 g/dL (3.5-5.1); Alkaline Phosphatase 72 U/L (38-126); Anion Gap 6 mmol/L (4-12); Aspartate Amino Transferase 26 U/L (17-59); Bilirubin,Total 0.4 mg/dL (0.2-1.3); Blood Urea Nitrogen 18 mg/dL (9-20); Carbon Dioxide 38 mmol/L (22-30); Chloride 95 mmol/L (98-107); Estimated CRCL calculation 118 ml/min; Estimated Glomerular Filt Rate > 60; Glucose 124 mg/dL (65-110); INR 1.1; Potassium 3.7 mmol/L (3.4-5.0); Prothrombin Time 14.4 Seconds (11.1-14.7); Sodium 139 mmol/L (137-145); Total Protein 8.2 g/dL (6.3-8.2)
[2024-09-18 19:19] LABS: NT Pro B Type Natriuretic Pept 33 pg/mL (19.9-100); Troponin I < 0.012 ng/mL (0.000-0.034)
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
[2024-09-18] MEDS: ALBUTEROL SULFATE NEB 2.5 MG/3 ML INH 5 MG INHALATION ×2 (19:37→21:52)
--- NOTE | 2024-09-18 21:14 | PC.NURSE ---
Pt. states I feel a lot better. Pt. is no longer on BiPAP. Dr. Ch at bedside assessing pt.
--- NOTE | 2024-09-18 21:37 | PC.NURSE ---
Respiratory called to bedside for breathing treatment and ABG.
[2024-09-18 21:59] LABS: Influenza A QL RT-PCR Negative (Negative); Influenza B QL RT-PCR Negative (Negative); RSV RNA, RT-PCR Negative (Negative); SARS-CoV-2 RNA PCR Negative (Negative)
[2024-09-18 22:04] LABS: Alveolar/Arterial O2 Gradient 71.3 mmHg; Base Excess ABG 7.6 mEq/l (+/-2.0); Carboxyhemoglobin 0.6 % THb (0-2.0); Fractional Inspired Oxygen 32 %; HCO3 ABG 35.7 mEq/l (22.0-26.0); Methemoglobin ABG 0.3 %THb (0-1.5); Oxygen Content ABG 17.6 %vol (16.0-22.0); Oxygen Saturation ABG 94.3 % (95.0-100.0); Oxyhemoglobin 93.7 % THb (90.0-100.0); PO2 ABG 77.4 mmHg (80.0-100.0); PO2 FiO2 Ratio Arterial Blood 2.42 %; Reduced Hemoglobin 5.4 %THb (0-5.0); Total Hemoglobin 13.3 g/dL (12.0-18.0); pH ABG 7.339 (7.350-7.450)
[2024-09-18] MEDS: methylPREDNISolone SOD SUCC 125 MG VIAL IV PUSH (22:06)
[2024-09-18] MEDS: FUROSEMIDE INJ 40 MG/4 ML VIAL IV PUSH (22:06)
[2024-09-18 22:07] LABS: Device NASAL CANNULA; Modified Allen's Test Pass; PCO2 ABG 67.9 mmHg (35.0-45.0); Site Drawn RIGHT RADIAL
--- NOTE | 2024-09-18 22:14 | PC.NURSE ---
RT at bedside placing pt. back on BiPAP d/t abnormal ABG
--- NOTE | 2024-09-18 22:16 | PC.NURSE ---
Per pt. request, daughter phoned for update. No answer. Voicemail left.
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
--- NOTE | 2024-09-18 22:54 | PC.NURSE ---
Pt. pulling off BiPAP mask yelling I can't take it anymore! Pt. educated of his elevated CO2 and that being on the BiPAP is in his best interest. Pt. convinced to reapply mask. SINAN GouldU RN notified of situation.
--- NOTE | 2024-09-18 23:03 | ADMGEN ---
This patient, Ozzy Ch , was admitted to IMU Room 203-01. Patient/family oriented to hospital policies and general routines including ID bracelet, bed and alarms, visiting hours, pain management, procedures, bathroom and other care routines, personal items, smoking policy, room service/diet, and visiting hours. Information on how to activate the Rapid Response Team has been discussed. Patient/Family are encouraged to report perceived risks to care and to ask questions if they do not understand what they are told or what they should do.
--- NOTE | 2024-09-18 23:52 | PCRCNOTE ---
Arterial blood gas and nebulized treatment from 09/18/24 -2144, ordered prior to transport to CT and completed post return from CT
[2024-09-19] VITALS (31 sets, daily range): BP systolic 131–149; BP diastolic 76–95; PULSE 88–112; RESP 12–28; TEMP 36.1–36.8; O2SAT 89–98
[2024-09-19] MEDS: NICOTINE (*PBKC) 7 MG PATCH 1 PATCH TRANSDERM ×2 (00:13→08:41)
[2024-09-19] MEDS: ALBUTEROL SULFATE NEB 2.5 MG/3 ML INH INHALATION ×4 (01:25→20:21)
[2024-09-19 04:52] LABS: Alveolar/Arterial O2 Gradient 142.5 mmHg; Base Excess ABG 10.1 mEq/l (+/-2.0); Carboxyhemoglobin 0.6 % THb (0-2.0); Fractional Inspired Oxygen 40 %; HCO3 ABG 38.2 mEq/l (22.0-26.0); Methemoglobin ABG 0.2 %THb (0-1.5); Oxygen Content ABG 18.1 %vol (16.0-22.0); Oxygen Saturation ABG 91.6 % (95.0-100.0); Oxyhemoglobin 91.8 % THb (90.0-100.0); PO2 ABG 65.4 mmHg (80.0-100.0); PO2 FiO2 Ratio Arterial Blood 1.63 %; Reduced Hemoglobin 7.4 %THb (0-5.0); pH ABG 7.372 (7.350-7.450)
[2024-09-19 05:06] LABS: Device NON-INVASIVE VENT; Modified Allen's Test Pass; Non-Invasive Expiratory Pressure 7 CMH2O; Non-Invasive Inspiratory Pressure 17 CMH2O; Non-Invasive Vent Rate 12 /MIN; PCO2 ABG 67.2 mmHg (35.0-45.0); Site Drawn LEFT RADIAL
[2024-09-19 05:12] LABS: Anion Gap 8 mmol/L (4-12); Blood Urea Nitrogen 20 mg/dL (9-20); Calcium 8.8 mg/dL (8.4-10.2); Carbon Dioxide 37 mmol/L (22-30); Chloride 93 mmol/L (98-107); Estimated CRCL calculation 120 ml/min; Estimated Glomerular Filt Rate > 60; Glucose 167 mg/dL (65-110); Magnesium 2.1 mg/dL (1.6-2.3); Sodium 138 mmol/L (137-145)
--- NOTE | 2024-09-19 06:35 | PC.NURSE ---
Patient currently refusing straight catheterization despite bladder scan reading 536mL in bladder. RN will reassess.
[2024-09-19] MEDS: ENOXAPARIN 40 MG/0.4 ML SYRINGE SUB-Q (08:41)
[2024-09-19] MEDS: METOPROLOL TARTRATE 25 MG TABLET PO (08:41)
[2024-09-19] MEDS: FOLIC ACID 1 MG TABLET PO (08:41)
[2024-09-19] MEDS: ATORVASTATIN 20 MG TABLET PO (08:41)
[2024-09-19] MEDS: BUPRENORPHINE HCL (*CRX) 2 MG SUBLINGUAL TABLET 4 MG SUBLINGUAL ×3 (08:42→21:15)
[2024-09-19] MEDS: METOPROLOL TARTRATE 12.5 MG TABLET PO (08:42)
[2024-09-19] MEDS: BUPRENORPHINE HCL (*CRX) 8 MG SUBLINGUAL TABLET SUBLINGUAL ×3 (08:42→21:16)
[2024-09-19] MEDS: ASPIRIN 81 MG ENTERIC TABLET PO (08:42)
[2024-09-19] MEDS: FUROSEMIDE INJ 40 MG/4 ML VIAL IV PUSH ×2 (08:43→20:39)
--- NOTE | 2024-09-19 09:40 | PM.IMPN ---
Progress Note: A&P Assessment and Plan (1) Acute on chronic respiratory failure with hypoxia and hypercapnia: Code(s): J96.21 - Acute and chronic respiratory failure with hypoxia; J96.22 - Acute and chronic respiratory failure with hypercapnia Status: Acute Assessment and Plan: Patient presents with SOB and found tohave acute respiratory failure. ABG - 7.34/68/77 on 3L. After a 4 hours on BiPAP, ABG 7.37/67/65. CXR showing CMG with cardiac decompensation and pulmonary edema. CT chest showing emphysematous changes and mediastinal LN enlargement but nml Concern for fluid overload but BNP 33; he was started on IV Lasix. Currently on 10L HFNC. Wean as tolerated to baseline 4L. Encourage BiPAP use with naps, bedtime and as needed for worsening SOB. Consider resuming steroids if wheezing does not improve with diuresis. Continue Albuterol. (2) Noncompliance: Code(s): Z91.199 - Patient's noncompliance with other medical treatment and regimen due to unspecified reason Status: Acute Assessment and Plan: Patient is noncompliant with BiPAP and lasix at home. compliance was encouraged (3) Fluid overload: Code(s): E87.70 - Fluid overload, unspecified Status: Acute Assessment and Plan: Patient with fluid overload with leg edema and possibly pulmonary edema (seen by CXR but not by CT). BNP 33. Echo as above. Consider right heart failure related to his untreated sleep apnea. Continue Lasix today but convert to oral lasix tomorrow if clincial exam better. (4) Chronic obstructive pulmonary disease: Code(s): J44.9 - Chronic obstructive pulmonary disease, unspecified Status: Acute Assessment and Plan: Patient with wheezing today. He did receive Solu-Medrol in ED once but not continued. Albuterol started. Wheezing can be from pulmonary edema so will see if this improves without steroids. Consider steroids tomorrow if symptoms persist. (5) Alcohol abuse: Code(s): F10.10 - Alcohol abuse, uncomplicated Status: Acute Assessment and Plan: Patient has a hx of ongoing alcohol abuse. CIWA protocol started. No evidence of withdrawal at this time. Librium available as needed. Add thiamine; continue folate. Continue to monitor with CIWA (6) Hypertension: Code(s): I10 - Essential (primary) hypertension Status: Acute Assessment and Plan: Patient's blood pressure was reviewed on 09/19 Blood pressure remains reasonably well controlled Will continue to follow (7) Obstructive sleep apnea: Code(s): G47.33 - Obstructive sleep apnea (adult) (pediatric) Status: Acute Assessment and Plan: Encouraged compliance. Check ABG in the morning. Plan Code status - full DVT prophylaxis - lovenox Subjective Date/time seen: 09/19/24 09:40 Interval history: 64yo male with chronic respiratory failure with hypercarbia and hypoxia on 4 L home oxygen, untreated sleep apnea, COPD, CHF(recent echo showed normal left and right ventricular systolic function and normal diastolic function however echo in November 2022 showed the possibility of mild hypokinesis of the right ventricle), HTN, HLD, hepatitis-C, depression, anxiety, bipolar disorder, alcohol abuse, and polysubstance abuse who presented to the ED via private vehicle with complaints of shortness of breath. Assuming care. Chart reviewed. Eating well. [place] a little lightheaded sitting at the side of the bed this morning. He wore the BiPAP from 1:00 a.m. to 5:00 a.m. this morning. He denies chest pain or shortness of breath currently. He has a dry nonproductive cough is mostly chronic. Quit tobacco 2 months ago. Continues to drink about 8 alcoholic drinks per day. He has history of withdrawal symptoms in the past. Exam Narrative: AF 98.2 147/92 112 16 94% 10L Gen - NARD sitting at the side of bed Chest - mild bibasilar crackles and diffuse end expiratory wheeze. nml RR CV - RRR S1/S2. Tele showing no significant dysrhythmias Abd - Soft, obese, NT Ext - 2+ pitting and indurated LE edema Neuro - Alert and appropriate. no tremors Psych - Nml mood and affect Skin - Warm and dry. dry LE skin with fine scale Objective Data Vital Signs Vital Signs: Vital Signs - 24 hr 09/18/24 18:32 09/18/24 19:08 09/18/24 19:10 Temperature 97.4 F L Pulse Rate 107 H 98 Pulse Rate [Monitor] Respiratory Rate 18 19 Blood Pressure 144/60 H 127/68 Pulse Oximetry 77 L 91 91 Oxygen Delivery Nasal Cannula Nasal Cannula Oxygen Flow Rate 4 4 Fraction of Inspired Oxygen 09/18/24 19:11 09/18/24 19:20 09/18/24 19:20 Temperature Pulse Rate 95 95 Pulse Rate [Monitor] Respiratory Rate 16 16 Blood Pressure Pulse Oximetry 92 94 94 Oxygen Delivery Nasal Cannula BiPAP BiPAP Oxygen Flow Rate 4 Fraction of Inspired Oxygen 09/18/24 19:23 09/18/24 19:37 09/18/24 20:18 Temperature Pulse Rate 93 85 Pulse Rate [Monitor] Respiratory Rate 14 24 H Blood Pressure 140/95 H Pulse Oximetry 96 95 Oxygen Delivery BiPAP Oxygen Flow Rate Fraction of Inspired Oxygen 09/18/24 20:20 09/18/24 20:20 09/18/24 21:15 Temperature Pulse Rate Pulse Rate [Monitor] Respiratory Rate Blood Pressure Pulse Oximetry 95 95 Oxygen Delivery BiPAP BiPAP Nasal Cannula Oxygen Flow Rate 4 Fraction of Inspired Oxygen 09/18/24 21:15 09/18/24 21:53 09/18/24 22:00 Temperature Pulse Rate 85 101 H Pulse Rate [Monitor] Respiratory Rate 22 H 22 H Blood Pressure 134/65 Pulse Oximetry 95 96 Oxygen Delivery BiPAP Oxygen Flow Rate Fraction of Inspired Oxygen 09/18/24 22:05 09/18/24 22:08 09/18/24 22:15 Temperature Pulse Rate 98 97 97 Pulse Rate [Monitor] Respiratory Rate 14 18 23 H Blood Pressure 135/76 Pulse Oximetry 97 92 Oxygen Delivery BiPAP Oxygen Flow Rate Fraction of Inspired Oxygen 09/18/24 22:20 09/18/24 23:11 09/18/24 23:11 Temperature Pulse Rate 97 97 Pulse Rate [Monitor] Respiratory Rate 20 Blood Pressure Pulse Oximetry 92 90 Oxygen Delivery BiPAP Nasal Cannula Oxygen Flow Rate 4 Fraction of Inspired Oxygen 09/18/24 23:29 09/19/24 00:00 09/19/24 00:00 Temperature 97.8 F Pulse Rate 104 H 98 Pulse Rate [Monitor] Respiratory Rate 14 Blood Pressure 113/74 Pulse Oximetry 90 89 L Oxygen Delivery Nasal Cannula Oxygen Flow Rate 5 Fraction of Inspired Oxygen 09/19/24 00:30 09/19/24 00:42 09/19/24 01:30 Temperature Pulse Rate 101 H Pulse Rate [Monitor] Respiratory Rate 28 H 16 Blood Pressure Pulse Oximetry Oxygen Delivery BiPAP BiPAP Oxygen Flow Rate Fraction of Inspired Oxygen 40 09/19/24 01:32 09/19/24 01:41 09/19/24 02:00 Temperature Pulse Rate 101 H 103 H 97 Pulse Rate [Monitor] Respiratory Rate 16 16 Blood Pressure Pulse Oximetry 92 Oxygen Delivery BiPAP Oxygen Flow Rate Fraction of Inspired Oxygen 09/19/24 04:00 09/19/24 04:00 09/19/24 04:00 Temperature 97.8 F Pulse Rate 88 93 Pulse Rate [Monitor] Respiratory Rate 20 Blood Pressure 145/78 H Pulse Oximetry 95 90 Oxygen Delivery BiPAP Oxygen Flow Rate Fraction of Inspired Oxygen 40 09/19/24 04:05 09/19/24 04:30 09/19/24 05:15 Temperature Pulse Rate 94 Pulse Rate [Monitor] 94 Respiratory Rate 15 Blood Pressure Pulse Oximetry 92 Oxygen Delivery BiPAP BiPAP Oxygen Flow Rate Fraction of Inspired Oxygen 09/19/24 06:00 09/19/24 06:42 09/19/24 07:51 Temperature 98.2 F Pulse Rate 110 H 99 Pulse Rate [Monitor] Respiratory Rate 16 Blood Pressure 147/92 H Pulse Oximetry 94 98 Oxygen Delivery High Flow Nasal Cannula Oxygen Flow Rate 10 Fraction of Inspired Oxygen 09/19/24 07:58 09/19/24 07:58 09/19/24 08:00 Temperature Pulse Rate 90 Pulse Rate [Monitor] 112 H Respiratory Rate 12 Blood Pressure Pulse Oximetry 94 Oxygen Delivery High Flow Nasal Cannula Oxygen Flow Rate 10 Fraction of Inspired Oxygen 09/19/24 08:05 09/19/24 08:41 09/19/24 08:42 Temperature Pulse Rate 107 H 112 H 112 H Pulse Rate [Monitor] Respiratory Rate 16 Blood Pressure Pulse Oximetry Oxygen Delivery Oxygen Flow Rate Fraction of Inspired Oxygen Intake/Output Intake/Output: Intake & Output 09/16/24 09/17/24 09/18/24 09/19/24 23:59 23:59 23:59 23:59 Intake Total 340 Output Total 500 950 Balance -500 -610 Meds/Results Medications: Active Medications Generic Name Dose Route Start Last Admin Trade Name Freq PRN Reason Stop Dose Admin Acetaminophen 650 mg 09/19/24 04:05 Acetaminophen 325 Mg Tablet PO Q6H PRN Mild Pain (1-3) or Fever Albuterol 2.5 mg 09/19/24 02:00 09/19/24 07:57 Albuterol Sulfate Neb 2.5 Mg/3 Ml Inh INHALATION 2.5 mg Q6HRT TONY Administration Aspirin 81 mg 09/19/24 09:00 09/19/24 08:42 Aspirin 81 Mg Enteric Tablet PO 81 mg DAILY TONY Administration Atorvastatin Calcium 20 mg 09/19/24 09:00 09/19/24 08:41 Atorvastatin 20 Mg Tablet PO 20 mg DAILY TONY Administration Buprenorphine HCl 4 mg 09/19/24 06:45 09/19/24 08:42 Buprenorphine Hcl (*Crx) 2 Mg Sublingual Tablet SUBLINGUAL 4 mg Q8HR TONY Administration Buprenorphine HCl 8 mg 09/19/24 06:45 09/19/24 08:42 Buprenorphine Hcl (*Crx) 8 Mg Sublingual Tablet SUBLINGUAL 8 mg Q8HR TONY Administration Chlordiazepoxide HCl 10 mg 09/19/24 04:05 Chlordiazepoxide (*Crx) 10 Mg Capsule PO Q6H PRN CIWA 4-8 Doxepin HCl 25 mg 09/19/24 21:00 Doxepin Hcl 25 Mg Capsule PO [facility] Enoxaparin Sodium 40 mg 09/19/24 09:00 09/19/24 08:41 Enoxaparin 40 Mg/0.4 Ml Syringe SUB-Q 40 mg DAILY TONY Administration Folic Acid 1 mg 09/19/24 09:00 09/19/24 08:41 Folic Acid 1 Mg Tablet PO 1 mg DAILY TONY Administration Furosemide 40 mg 09/19/24 09:00 09/19/24 08:43 Furosemide Inj 40 Mg/4 Ml Vial IV PUSH 40 mg Q12HR TONY Administration Metoprolol Tartrate 25 mg 09/19/24 09:00 09/19/24 08:41 Metoprolol Tartrate 25 Mg Tablet PO 25 mg DAILY TONY Administration Metoprolol Tartrate 12.5 mg 09/19/24 09:00 09/19/24 08:42 Metoprolol Tartrate 12.5 Mg Tablet PO 12.5 mg DAILY [facility] Administration Nicotine 1 patch 09/18/24 23:25 09/19/24 08:41 Nicotine (*Pbkc) 7 Mg Patch TRANSDERM 1 patch DAILY TONY Administration Radiology Results: ITS Impressions Chest X-Ray 09/18/24 19:17 IMPRESSION: Cardiomegaly with cardiac decompensation and pulmonary edema. Superimposed pneumonitis is highly suggestive. Opacity in the left costophrenic angle which may indicate a mass measuring 4.[address] evaluation advised. Chest CT 09/18/24 21:56 IMPRESSION: No evidence of mass is seen. The soft tissue density seen in the left costophrenic angle is fatty in nature. Left basilar subsegmental atelectasis. Mediastinal lymphadenopathy. Cholelithiasis Underlying emphysematous changes. Labs Labs: Laboratory Results - last 24 hr 09/18/24 09/18/24 09/18/24 18:50 21:15 21:50 WBC 8.0 RBC 4.23 L Hgb 12.4 L Hct 40.3 L MCV 95.3 MCH 29.3 MCHC 30.8 L RDW 13.5 Plt Count 242 MPV 10.2 Immature Gran % (Auto) 0.4 Neut % (Auto) 61.8 Lymph % (Auto) 16.6 L [place] % (Auto) 9.3 H Eos % (Auto) 11.0 H Baso % (Auto) 0.9 Lymph # (Auto) 1.33 [place] # (Auto) 0.7 H Eos # (Auto) 0.9 H Baso # (Auto) 0.1 Abs Immat Gran (auto) 0.03 Absolute Neuts (auto) 4.9 Absolute Nucleated RBC 0.000 Nucleated RBC % 0.0 PT 14.4 INR 1.1 APTT 29.0 Puncture Site Right radial ABG pH 7.339 L ABG pCO2 67.9 H* ABG pO2 77.4 L ABG PO2/FiO2 Ratio 2.42 ABG HCO3 35.7 H ABG O2 Saturation 94.3 L ABG O2 Content 17.6 ABG Base Excess 7.6 A-a Gradient 71.3 Oxyhemoglobin 93.7 Carboxyhemoglobin 0.6 Methemoglobin 0.3 Reduced Hemoglobin 5.4 H Total Hemoglobin 13.3 O2 Delivery Device Nasal cannula O2 Liters/Min 3.0 Vent Rate FiO2 32 Expiratory Pressure Inspiratory Pressure Sodium 139 Potassium 3.7 Chloride 95 L Carbon Dioxide 38 H Anion Gap 6 BUN 18 Creatinine 0.73 Estim Creat Clear Calc 118 Estimated GFR > 60 Glucose 124 H Calcium 9.0 Magnesium Total Bilirubin 0.4 AST 26 ALT 13 Alkaline Phosphatase 72 Troponin I < 0.012 NT-Pro-B Natriuret Pep 33 Total Protein 8.2 Albumin 4.3 TSH (Reflex) Influenza A (RT-PCR) Negative Influenza B (RT-PCR) Negative RSV (RT-PCR) Negative SARS-CoV-2 RNA (RT-PCR) Negative 09/19/24 09/19/24 04:38 04:42 WBC RBC Hgb Hct MCV MCH MCHC RDW Plt Count MPV Immature Gran % (Auto) Neut % (Auto) Lymph % (Auto) [place] % (Auto) Eos % (Auto) Baso % (Auto) Lymph # (Auto) [place] # (Auto) Eos # (Auto) Baso # (Auto) Abs Immat Gran (auto) Absolute Neuts (auto) Absolute Nucleated RBC Nucleated RBC % PT INR APTT Puncture Site Left radial ABG pH 7.372 ABG pCO2 67.2 H* ABG pO2 65.4 L ABG PO2/FiO2 Ratio 1.63 ABG HCO3 38.2 H ABG O2 Saturation 91.6 L ABG O2 Content 18.1 ABG Base Excess 10.1 A-a Gradient 142.5 Oxyhemoglobin 91.8 Carboxyhemoglobin 0.6 Methemoglobin 0.2 Reduced Hemoglobin 7.4 H Total Hemoglobin 14.0 O2 Delivery Device Non-invasive vent O2 Liters/Min Not Reportable Vent Rate 12 FiO2 40 Expiratory Pressure 7 Inspiratory Pressure 17 Sodium 138 Potassium 4.0 Chloride 93 L Carbon Dioxide 37 H Anion Gap 8 BUN 20 Creatinine 0.72 Estim Creat Clear Calc 120 Estimated GFR > 60 Glucose 167 H Calcium 8.8 Magnesium 2.1 Total Bilirubin AST ALT Alkaline Phosphatase Troponin I NT-Pro-B Natriuret Pep Total Protein Albumin TSH (Reflex) 1.290 Influenza A (RT-PCR) Influenza B (RT-PCR) RSV (RT-PCR) SARS-CoV-2 RNA (RT-PCR)
[2024-09-19] MEDS: THIAMINE HCL 100 MG TABLET PO (12:18)
[2024-09-19] MEDS: DOXEPIN HCL 25 MG CAPSULE PO (20:38)
[2024-09-19] MEDS: ACETAMINOPHEN 325 MG TABLET 650 MG PO (21:15)
[2024-09-20] VITALS (22 sets, daily range): BP systolic 124–150; BP diastolic 61–87; PULSE 70–101; RESP 14–24; TEMP 36.6–36.9; O2SAT 93–100
[2024-09-20] MEDS: ALBUTEROL SULFATE NEB 2.5 MG/3 ML INH INHALATION ×4 (02:21→21:07)
[2024-09-20 04:34] LABS: Basophils Percent Auto 0.1 % (0.2-1.2); Eosinophils Percent Auto 0.1 % (0-4.4); Hematocrit 40.3 % (42.0-52.0); Hemoglobin 12.4 g/dL (14.0-18.0); Immature Granulocyte Absolute 0.03 K/mm3 (0.00-0.031); Immature Granulocyte Percent A 0.3 % (0-0.5); Lymphocytes Absolute Auto 1.37 K/mm3 (0.9-3.2); Lymphocytes Percent Auto 14.4 % (18.3-44.2); Mean Corpuscular HGB Conc 30.8 g/dl (32-36); Mean Corpuscular Hemoglobin 29.4 pg (26-34); Mean Corpuscular Volume 95.5 fl (80-100); Mean Platelet Volume 10.8 fl (7.4-10.4); Monocytes Absolute Auto 0.9 K/mm3 (0.1-0.6); Monocytes Percent Auto 9.6 % (2.6-8.5); Neutrophils Absolute Auto 7.2 K/mm3 (1.3-6.7); Neutrophils Percent Auto 75.5 % (45.5-73.1); Platelet Count Result 235 k/mm3 (150-375); Red Blood Count 4.22 M/mm3 (4.6-6.20); Red Cell Distribution Width 13.4 % (11.5-14.5); White Blood Count 9.5 K/mm3 (4.5-10.0)
[2024-09-20 04:47] LABS: Albumin Level 4.2 g/dL (3.5-5.1); Blood Urea Nitrogen 29 mg/dL (9-20); Calcium 8.9 mg/dL (8.4-10.2); Carbon Dioxide > 40 mmol/L (22-30); Chloride 92 mmol/L (98-107); Estimated CRCL calculation 91 ml/min; Estimated Glomerular Filt Rate > 60; Glucose 140 mg/dL (65-110); Phosphorus 2.9 mg/dL (2.5-4.5); Potassium 4.1 mmol/L (3.4-5.0); Sodium 137 mmol/L (137-145)
[2024-09-20 04:51] LABS: Alveolar/Arterial O2 Gradient 105.8 mmHg; Fractional Inspired Oxygen 40 %; Oxygen Saturation ABG 99.1 % (95.0-100.0); Oxyhemoglobin 98.7 % THb (90.0-100.0); PCO2 ABG 32.5 mmHg (35.0-45.0); PO2 FiO2 Ratio Arterial Blood 3.55 %; Total Hemoglobin 12.8 g/dL (12.0-18.0)
[2024-09-20 04:53] LABS: Device NON-INVASIVE VENT; Modified Allen's Test Pass; Non-Invasive Expiratory Pressure 8 CMH2O; Non-Invasive Inspiratory Pressure 20 CMH2O; Non-Invasive Vent Rate 20 /MIN; Site Drawn RIGHT RADIAL; pH ABG 7.568 (7.350-7.450)
[2024-09-20] MEDS: BUPRENORPHINE HCL (*CRX) 2 MG SUBLINGUAL TABLET 4 MG SUBLINGUAL ×3 (05:42→23:02)
[2024-09-20] MEDS: BUPRENORPHINE HCL (*CRX) 8 MG SUBLINGUAL TABLET SUBLINGUAL ×3 (05:42→23:02)
[2024-09-20] MEDS: NICOTINE (*PBKC) 7 MG PATCH 1 PATCH TRANSDERM (10:12)
[2024-09-20] MEDS: METOPROLOL TARTRATE 25 MG TABLET PO (10:13)
[2024-09-20] MEDS: ENOXAPARIN 40 MG/0.4 ML SYRINGE SUB-Q (10:13)
[2024-09-20] MEDS: METOPROLOL TARTRATE 12.5 MG TABLET PO (10:13)
[2024-09-20] MEDS: THIAMINE HCL 100 MG TABLET PO (10:13)
[2024-09-20] MEDS: FUROSEMIDE INJ 40 MG/4 ML VIAL IV PUSH ×2 (10:13→21:46)
[2024-09-20] MEDS: ATORVASTATIN 20 MG TABLET PO (10:13)
[2024-09-20] MEDS: ASPIRIN 81 MG ENTERIC TABLET PO (10:14)
[2024-09-20] MEDS: FOLIC ACID 1 MG TABLET PO (10:14)
--- NOTE | 2024-09-20 16:22 | PM.IMPN ---
Progress Note: A&P Assessment and Plan (1) Acute on chronic respiratory failure with hypoxia and hypercapnia: Code(s): J96.21 - Acute and chronic respiratory failure with hypoxia; J96.22 - Acute and chronic respiratory failure with hypercapnia Status: Acute Assessment and Plan: Patient presents with SOB and found tohave acute respiratory failure. ABG - 7.34/68/77 on 3L. After a 4 hours on BiPAP, ABG 7.37/67/65. CXR showing CMG with cardiac decompensation and pulmonary edema. CT chest showing emphysematous changes and mediastinal LN enlargement but nml Concern for fluid overload but BNP 33; he was started on IV Lasix. Currently on 10L HFNC. Wean as tolerated to baseline 4L. Encourage BiPAP use with naps, bedtime and as needed for worsening SOB. Consider resuming steroids if wheezing does not improve with diuresis. Continue Albuterol. (2) Noncompliance: Code(s): Z91.199 - Patient's noncompliance with other medical treatment and regimen due to unspecified reason Status: Acute Assessment and Plan: Patient is noncompliant with BiPAP and lasix at home. compliance was encouraged (3) Fluid overload: Code(s): E87.70 - Fluid overload, unspecified Status: Acute Assessment and Plan: Patient with fluid overload with leg edema and possibly pulmonary edema (seen by CXR but not by CT). BNP 33. Echo as above. Consider right heart failure related to his untreated sleep apnea. Continue diuresis ordered (4) Chronic obstructive pulmonary disease: Code(s): J44.9 - Chronic obstructive pulmonary disease, unspecified Status: Acute Assessment and Plan: Patient with wheezing. He did receive Solu-Medrol in ED once but not continued. Albuterol started. Wheezing can be from pulmonary edema so will see if this improves without steroids. Continue bronchodilators as ordered. Steroid if does not improve but seems to be improving. (5) Alcohol abuse: Code(s): F10.10 - Alcohol abuse, uncomplicated Status: Acute Assessment and Plan: Patient has a hx of ongoing alcohol abuse. CIWA protocol started. No evidence of withdrawal at this time. Librium available as needed. Add thiamine; continue folate. Continue to monitor with CIWA (6) Hypertension: Code(s): I10 - Essential (primary) hypertension Status: Acute Assessment and Plan: Patient's blood pressure was reviewed on 09/19 Blood pressure remains reasonably well controlled Will continue to follow (7) Obstructive sleep apnea: Code(s): G47.33 - Obstructive sleep apnea (adult) (pediatric) Status: Acute Assessment and Plan: Encouraged compliance. ABG reviewed Plan Code status - full DVT prophylaxis - lovenox Subjective Date/time seen: 09/20/24 16:22 Interval history: No overnight events. Feeling better. He used BiPAP last night. Down to 4 L via nasal cannula which is home dose. Leg swelling and shortness of breath improving. Review of Systems Review of Systems: All systems reviewed & are unremarkable except as noted in HPI and below Exam Narrative: Gen - NARD sitting at the side of bed Chest - mild bibasilar crackles and mild end expiratory wheeze. nml RR CV - RRR S1/S2. Tele showing no significant dysrhythmias Abd - Soft, obese, NT Ext - 2+ pitting and indurated LE edema Neuro - Alert and appropriate. no tremors Psych - Nml mood and affect Skin - Warm and dry. dry LE skin with fine scale Objective Data Vital Signs Vital Signs: Vital Signs - 24 hr 09/19/24 18:00 09/19/24 20:00 09/19/24 20:00 Temperature 97.7 F Pulse Rate 106 H 92 Pulse Rate [Monitor] Respiratory Rate 16 Blood Pressure 131/76 Pulse Oximetry 92 93 Oxygen Delivery High Flow Nasal Cannula Oxygen Flow Rate 7 Fraction of Inspired Oxygen 09/19/24 20:00 09/19/24 20:00 09/19/24 20:00 Temperature Pulse Rate 91 91 Pulse Rate [Monitor] 102 H Respiratory Rate Blood Pressure Pulse Oximetry 91 Oxygen Delivery Oxygen Flow Rate Fraction of Inspired Oxygen 09/19/24 20:23 09/19/24 20:24 09/19/24 20:28 Temperature Pulse Rate 88 89 Pulse Rate [Monitor] Respiratory Rate 20 20 Blood Pressure Pulse Oximetry 94 Oxygen Delivery High Flow Nasal Cannula Oxygen Flow Rate 6 Fraction of Inspired Oxygen 09/19/24 22:00 09/19/24 23:47 09/20/24 00:00 Temperature 97.6 F Pulse Rate 100 96 Pulse Rate [Monitor] 93 Respiratory Rate 20 Blood Pressure 141/95 H Pulse Oximetry 93 Oxygen Delivery Oxygen Flow Rate Fraction of Inspired Oxygen 09/20/24 00:00 09/20/24 00:00 09/20/24 00:37 Temperature Pulse Rate 96 Pulse Rate [Monitor] Respiratory Rate 24 H Blood Pressure Pulse Oximetry 96 98 Oxygen Delivery High Flow Nasal Cannula BiPAP Oxygen Flow Rate 6 Fraction of Inspired Oxygen 09/20/24 02:00 09/20/24 02:21 09/20/24 02:23 Temperature Pulse Rate 78 76 Pulse Rate [Monitor] Respiratory Rate 24 H 24 H Blood Pressure Pulse Oximetry 96 Oxygen Delivery BiPAP Oxygen Flow Rate Fraction of Inspired Oxygen 09/20/24 04:00 09/20/24 04:00 09/20/24 04:00 Temperature Pulse Rate 79 Pulse Rate [Monitor] 79 Respiratory Rate Blood Pressure Pulse Oximetry 99 Oxygen Delivery BiPAP Oxygen Flow Rate Fraction of Inspired Oxygen 40 09/20/24 04:00 09/20/24 06:00 09/20/24 06:54 Temperature 97.9 F Pulse Rate 87 96 Pulse Rate [Monitor] Respiratory Rate 22 H Blood Pressure 138/72 Pulse Oximetry 97 93 Oxygen Delivery High Flow Nasal Cannula Oxygen Flow Rate 4 Fraction of Inspired Oxygen 09/20/24 07:49 09/20/24 08:00 09/20/24 08:00 Temperature 98.4 F Pulse Rate 88 Pulse Rate [Monitor] 92 Respiratory Rate 20 Blood Pressure 150/87 H Pulse Oximetry 96 94 Oxygen Delivery High Flow Nasal Cannula Oxygen Flow Rate 4 Fraction of Inspired Oxygen 09/20/24 08:00 09/20/24 10:13 09/20/24 10:13 Temperature Pulse Rate 95 101 H 101 H Pulse Rate [Monitor] Respiratory Rate Blood Pressure Pulse Oximetry Oxygen Delivery Oxygen Flow Rate Fraction of Inspired Oxygen 09/20/24 10:32 09/20/24 12:00 09/20/24 12:00 Temperature 98.1 F Pulse Rate 91 70 81 Pulse Rate [Monitor] Respiratory Rate 14 18 Blood Pressure 125/82 Pulse Oximetry 94 98 Oxygen Delivery Nasal Cannula Oxygen Flow Rate 4 Fraction of Inspired Oxygen 09/20/24 12:00 09/20/24 15:56 Temperature 98.2 F Pulse Rate 89 Pulse Rate [Monitor] 82 Respiratory Rate 22 H Blood Pressure 124/61 Pulse Oximetry 93 Oxygen Delivery Oxygen Flow Rate Fraction of Inspired Oxygen Intake/Output Intake/Output: Intake & Output 09/17/24 09/18/24 09/19/24 09/20/24 23:59 23:59 23:59 23:59 Intake Total 2019 4309 Output Total 500 2300 2100 Balance -500 -280 2210 Meds/Results Medications: Active Medications Generic Name Dose Route Start Last Admin Trade Name Freq PRN Reason Stop Dose Admin Acetaminophen 650 mg 09/19/24 04:05 09/19/24 21:15 Acetaminophen 325 Mg Tablet PO 650 mg Q6H PRN Administration Mild Pain (1-3) or Fever Albuterol 2.5 mg 09/19/24 02:00 09/20/24 14:37 Albuterol Sulfate Neb 2.5 Mg/3 Ml Inh INHALATION 2.5 mg Q6HRT TONY Administration Aspirin 81 mg 09/19/24 09:00 09/20/24 10:14 Aspirin 81 Mg Enteric Tablet PO 81 mg DAILY TONY Administration Atorvastatin Calcium 20 mg 09/19/24 09:00 09/20/24 10:13 Atorvastatin 20 Mg Tablet PO 20 mg DAILY TONY Administration Buprenorphine HCl 4 mg 09/19/24 06:45 09/20/24 13:34 Buprenorphine Hcl (*Crx) 2 Mg Sublingual Tablet SUBLINGUAL 4 mg Q8HR TONY Administration Buprenorphine HCl 8 mg 09/19/24 06:45 09/20/24 13:34 Buprenorphine Hcl (*Crx) 8 Mg Sublingual Tablet SUBLINGUAL 8 mg Q8HR TONY Administration Chlordiazepoxide HCl 10 mg 09/19/24 04:05 Chlordiazepoxide (*Crx) 10 Mg Capsule PO Q6H PRN CIWA 4-8 Doxepin HCl 25 mg 09/19/24 21:00 09/19/24 20:38 Doxepin Hcl 25 Mg Capsule PO 25 mg HS TONY Administration Enoxaparin Sodium 40 mg 09/19/24 09:00 09/20/24 10:13 Enoxaparin 40 Mg/0.4 Ml Syringe SUB-Q 40 mg DAILY TONY Administration Folic Acid 1 mg 09/19/24 09:00 09/20/24 10:14 Folic Acid 1 Mg Tablet PO 1 mg DAILY TONY Administration Furosemide 40 mg 09/19/24 09:00 09/20/24 10:13 Furosemide Inj 40 Mg/4 Ml Vial IV PUSH 40 mg Q12HR TONY Administration Metoprolol Tartrate 25 mg 09/19/24 09:00 09/20/24 10:13 Metoprolol Tartrate 25 Mg Tablet PO 25 mg DAILY TONY Administration Metoprolol Tartrate 12.5 mg 09/19/24 09:00 09/20/24 10:13 Metoprolol Tartrate 12.5 Mg Tablet PO 12.5 mg DAILY TONY Administration Nicotine 1 patch 09/18/24 23:25 09/20/24 10:12 Nicotine (*Pbkc) 7 Mg Patch TRANSDERM 1 patch DAILY TONY Administration Thiamine HCl 100 mg 09/19/24 10:05 09/20/24 10:13 Thiamine Hcl 100 Mg Tablet PO 100 mg QAM TONY Administration Radiology Results: ITS Impressions Chest X-Ray 09/18/24 19:17 IMPRESSION: Cardiomegaly with cardiac decompensation and pulmonary edema. Superimposed pneumonitis is highly suggestive. Opacity in the left costophrenic angle which may indicate a mass measuring 4.[address] evaluation advised. Chest CT 09/18/24 21:56 IMPRESSION: No evidence of mass is seen. The soft tissue density seen in the left costophrenic angle is fatty in nature. Left basilar subsegmental atelectasis. Mediastinal lymphadenopathy. Cholelithiasis Underlying emphysematous changes. Labs Labs: Laboratory Results - last 24 hr 09/20/24 09/20/24 03:48 04:29 WBC 9.5 RBC 4.22 L Hgb 12.4 L Hct 40.3 L MCV 95.5 MCH 29.4 MCHC 30.8 L RDW 13.4 Plt Count 235 MPV 10.8 H Immature Gran % (Auto) 0.3 Neut % (Auto) 75.5 H Lymph % (Auto) 14.4 L [place] % (Auto) 9.6 H Eos % (Auto) 0.1 Baso % (Auto) 0.1 L Lymph # (Auto) 1.37 [place] # (Auto) 0.9 H Eos # (Auto) 0.0 Baso # (Auto) 0.0 Abs Immat Gran (auto) 0.03 Absolute Neuts (auto) 7.2 H Absolute Nucleated RBC 0.000 Nucleated RBC % 0.0 Puncture Site Right radial ABG pH 7.568 H* ABG pCO2 32.5 L ABG pO2 142.0 H ABG PO2/FiO2 Ratio 3.55 ABG HCO3 29.0 H ABG O2 Saturation 99.1 ABG O2 Content 18.0 ABG Base Excess 7.0 A-a Gradient 105.8 Oxyhemoglobin 98.7 Total Hemoglobin 12.8 O2 Delivery Device Non-invasive vent O2 Liters/Min Not Reportable Vent Rate 20 FiO2 40 Expiratory Pressure 8 Inspiratory Pressure 20 Sodium 137 Potassium 4.1 Chloride 92 L Carbon Dioxide > 40 H Anion Gap BUN 29 H Creatinine 0.97 Estim Creat Clear Calc 91 Estimated GFR > 60 Glucose 140 H Calcium 8.9 Phosphorus 2.9 Albumin 4.2
--- NOTE | 2024-09-20 16:43 | PC.NURSE ---
Pt refusing bed alarm at this time. States 'That was forever ago that I fell I have not fallen recently and I will leave before you put that bed alarm on me. Educated PT on importance of avoiding falls, requesting help when needed, and ambulating with assistance.
[2024-09-20] MEDS: hydrOXYzine pamoate 25 MG CAPSULE PO (18:12)
[2024-09-20] MEDS: DOXEPIN HCL 25 MG CAPSULE PO (21:46)
[2024-09-21] VITALS (23 sets, daily range): BP systolic 108–155; BP diastolic 58–89; PULSE 68–113; RESP 12–21; TEMP 36.1–36.9; O2SAT 90–100
[2024-09-21] MEDS: ALBUTEROL SULFATE NEB 2.5 MG/3 ML INH INHALATION ×4 (01:30→19:46)
[2024-09-21] MEDS: BUPRENORPHINE HCL (*CRX) 2 MG SUBLINGUAL TABLET 4 MG SUBLINGUAL ×3 (06:07→21:29)
[2024-09-21] MEDS: BUPRENORPHINE HCL (*CRX) 8 MG SUBLINGUAL TABLET SUBLINGUAL ×3 (06:07→21:29)
[2024-09-21 07:07] LABS: Basophils Absolute Auto 0.1 K/mm3 (0.0-0.1); Eosinophils Absolute Auto 0.3 K/mm3 (0-0.3); Eosinophils Percent Auto 3.5 % (0-4.4); Hematocrit 42.2 % (42.0-52.0); Hemoglobin 12.9 g/dL (14.0-18.0); Immature Granulocyte Absolute 0.04 K/mm3 (0.00-0.031); Immature Granulocyte Percent A 0.5 % (0-0.5); Lymphocytes Absolute Auto 3.27 K/mm3 (0.9-3.2); Lymphocytes Percent Auto 39.3 % (18.3-44.2); Mean Corpuscular HGB Conc 30.6 g/dl (32-36); Mean Corpuscular Hemoglobin 29.5 pg (26-34); Mean Corpuscular Volume 96.3 fl (80-100); Mean Platelet Volume 10.8 fl (7.4-10.4); Monocytes Absolute Auto 0.8 K/mm3 (0.1-0.6); Neutrophils Absolute Auto 3.9 K/mm3 (1.3-6.7); Neutrophils Percent Auto 46.7 % (45.5-73.1); Platelet Count Result 254 k/mm3 (150-375); Red Blood Count 4.38 M/mm3 (4.6-6.20); Red Cell Distribution Width 13.7 % (11.5-14.5); White Blood Count 8.3 K/mm3 (4.5-10.0)
[2024-09-21 07:10] LABS: Alanine Aminotransferase 15 U/L (6-50); Albumin Level 4.1 g/dL (3.5-5.1); Alkaline Phosphatase 74 U/L (38-126); Anion Gap 8 mmol/L (4-12); Aspartate Amino Transferase 30 U/L (17-59); Bilirubin,Total 0.3 mg/dL (0.2-1.3); Blood Urea Nitrogen 29 mg/dL (9-20); Calcium 8.8 mg/dL (8.4-10.2); Carbon Dioxide 35 mmol/L (22-30); Chloride 95 mmol/L (98-107); Estimated CRCL calculation 93 ml/min; Estimated Glomerular Filt Rate > 60; Glucose 109 mg/dL (65-110); Magnesium 2.4 mg/dL (1.6-2.3); Potassium 4.4 mmol/L (3.4-5.0); Sodium 138 mmol/L (137-145); Total Protein 7.8 g/dL (6.3-8.2)
[2024-09-21] MEDS: METOPROLOL TARTRATE 12.5 MG TABLET PO (08:04)
[2024-09-21] MEDS: FOLIC ACID 1 MG TABLET PO (08:04)
[2024-09-21] MEDS: ASPIRIN 81 MG ENTERIC TABLET PO (08:05)
[2024-09-21] MEDS: METOPROLOL TARTRATE 25 MG TABLET PO (08:05)
[2024-09-21] MEDS: ATORVASTATIN 20 MG TABLET PO (08:05)
[2024-09-21] MEDS: THIAMINE HCL 100 MG TABLET PO (08:05)
[2024-09-21] MEDS: FUROSEMIDE INJ 40 MG/4 ML VIAL IV PUSH ×2 (08:05→21:30)
[2024-09-21] MEDS: NICOTINE (*PBKC) 7 MG PATCH 1 PATCH TRANSDERM (08:12)
[2024-09-21] MEDS: ENOXAPARIN 40 MG/0.4 ML SYRINGE SUB-Q (08:12)
[2024-09-21] MEDS: hydrOXYzine pamoate 25 MG CAPSULE PO (08:20)
--- NOTE | 2024-09-21 15:49 | P.PNIM_ITS ---
Progress Note: A&P Assessment and Plan (1) Acute on chronic respiratory failure with hypoxia and hypercapnia: Code(s): J96.21 - Acute and chronic respiratory failure with hypoxia; J96.22 - Acute and chronic respiratory failure with hypercapnia Status: Acute Assessment and Plan: Patient presents with SOB and found tohave acute respiratory failure. ABG - 7.34/68/77 on 3L. After a 4 hours on BiPAP, ABG 7.37/67/65. CXR showing CMG with cardiac decompensation and pulmonary edema. CT chest showing emphysematous changes and mediastinal LN enlargement but nml Concern for fluid overload but BNP 33; he was started on IV Lasix. Currently on 10L HFNC. Wean as tolerated to baseline 4L. Encourage BiPAP use with naps, bedtime and as needed for worsening SOB. Consider resuming steroids if wheezing does not improve with diuresis. Continue Albuterol. continue on o2 continue lasix (2) Noncompliance: Code(s): Z91.199 - Patient's noncompliance with other medical treatment and regimen due to unspecified reason Status: Acute Assessment and Plan: Patient is noncompliant with BiPAP and lasix at home. compliance was encouraged (3) Fluid overload: Code(s): E87.70 - Fluid overload, unspecified Status: Acute Assessment and Plan: Patient with fluid overload with leg edema and possibly pulmonary edema (seen by CXR but not by CT). BNP 33. Echo as above. Consider right heart failure related to his untreated sleep apnea. Continue diuresis ordered conitue lasix will change to PO tommorw in anticipation of discharge (4) Chronic obstructive pulmonary disease: Code(s): J44.9 - Chronic obstructive pulmonary disease, unspecified Status: Acute Assessment and Plan: Patient with wheezing. He did receive Solu-Medrol in ED once but not continued. Albuterol started. Wheezing can be from pulmonary edema so will see if this improves without steroids. Continue bronchodilators as ordered. Steroid if does not improve but seems to be improving. (5) Alcohol abuse: Code(s): F10.10 - Alcohol abuse, uncomplicated Status: Acute Assessment and Plan: Patient has a hx of ongoing alcohol abuse. CIWA protocol started. No evidence of withdrawal at this time. Librium available as needed. Add thiamine; continue folate. Continue to monitor with CIWA alcohol cessation discussed (6) Hypertension: Code(s): I10 - Essential (primary) hypertension Status: Acute Assessment and Plan: Patient's blood pressure was reviewed on 09/19 Blood pressure remains reasonably well controlled Will continue to follow (7) Obstructive sleep apnea: Code(s): G47.33 - Obstructive sleep apnea (adult) (pediatric) Status: Acute Assessment and Plan: Encouraged compliance. ABG reviewed Plan Code status - full DVT prophylaxis - lovenox Time Spent With Patient Time with patient: 25 - 35 minutes Subjective Date/time seen: 09/21/24 15:49 Interval history: No overnight events. Feeling better. He used BiPAP last night. Down to 4 L via nasal cannula which is home dose. Leg swelling and shortness of breath improving. I/O reviewed. his leg swelling is a bit better but lt leg still swollen Review of Systems Review of Systems: 12 systems were reviewed and are negativ e except for as per HPI. All systems reviewed & are unremarkable except as noted in HPI and below Exam Narrative: Gen - NARD sitting at the side of bed Chest - mild bibasilar crackles and mild end expiratory wheeze. nml RR CV - RRR S1/S2. Tele showing no significant dysrhythmias Abd - Soft, obese, NT Ext - 2+ pitting and indurated LE edema Neuro - Alert and appropriate. no tremors Psych - Nml mood and affect Skin - Warm and dry. dry LE skin with fine scale Objective Data Vital Signs Vital Signs: Vital Signs - 24 hr 09/20/24 15:56 09/20/24 16:00 09/20/24 16:00 Temperature 98.2 F Pulse Rate 89 90 Pulse Rate [Monitor] 77 Respiratory Rate 22 H Blood Pressure 124/61 Pulse Oximetry 93 Oxygen Delivery Oxygen Flow Rate Fraction of Inspired Oxygen 09/20/24 20:00 09/20/24 21:07 09/20/24 21:09 Temperature 98.3 F Pulse Rate 88 88 76 Pulse Rate [Monitor] Respiratory Rate 22 H 20 20 Blood Pressure 137/73 Pulse Oximetry 100 95 Oxygen Delivery Nasal Cannula Oxygen Flow Rate 4 Fraction of Inspired Oxygen 36 09/20/24 22:14 09/20/24 22:31 09/20/24 22:52 Temperature Pulse Rate 76 Pulse Rate [Monitor] Respiratory Rate 22 H Blood Pressure Pulse Oximetry 96 96 Oxygen Delivery BiPAP BiPAP Oxygen Flow Rate Fraction of Inspired Oxygen 09/20/24 22:55 09/21/24 00:00 09/21/24 00:00 Temperature Pulse Rate 68 Pulse Rate [Monitor] 71 69 Respiratory Rate Blood Pressure Pulse Oximetry Oxygen Delivery Oxygen Flow Rate Fraction of Inspired Oxygen 09/21/24 00:43 09/21/24 01:30 09/21/24 03:49 Temperature 98.4 F Pulse Rate 79 113 H Pulse Rate [Monitor] 77 Respiratory Rate 20 20 Blood Pressure 155/89 H Pulse Oximetry 100 Oxygen Delivery Oxygen Flow Rate Fraction of Inspired Oxygen 09/21/24 04:00 09/21/24 04:59 09/21/24 08:00 Temperature 98.5 F Pulse Rate 73 78 Pulse Rate [Monitor] 112 H Respiratory Rate 16 Blood Pressure 115/64 Pulse Oximetry 100 Oxygen Delivery Oxygen Flow Rate Fraction of Inspired Oxygen 09/21/24 08:00 09/21/24 08:04 09/21/24 08:05 Temperature 97.2 F L Pulse Rate 86 112 H 112 H Pulse Rate [Monitor] Respiratory Rate 12 Blood Pressure 140/79 Pulse Oximetry 97 Oxygen Delivery Oxygen Flow Rate Fraction of Inspired Oxygen 09/21/24 08:05 09/21/24 09:08 09/21/24 09:08 Temperature Pulse Rate 96 100 Pulse Rate [Monitor] Respiratory Rate 20 Blood Pressure Pulse Oximetry 97 Oxygen Delivery Nasal Cannula Oxygen Flow Rate 4 Fraction of Inspired Oxygen 09/21/24 09:20 09/21/24 11:13 09/21/24 12:00 Temperature Pulse Rate 106 H 83 Pulse Rate [Monitor] Respiratory Rate 20 Blood Pressure Pulse Oximetry Oxygen Delivery Nasal Cannula Oxygen Flow Rate 4 Fraction of Inspired Oxygen 09/21/24 12:00 09/21/24 13:17 09/21/24 14:07 Temperature 97.4 F L Pulse Rate 72 91 Pulse Rate [Monitor] 86 Respiratory Rate 14 20 Blood Pressure 108/65 Pulse Oximetry 94 Oxygen Delivery Oxygen Flow Rate Fraction of Inspired Oxygen 09/21/24 14:15 Temperature Pulse Rate 93 Pulse Rate [Monitor] Respiratory Rate 20 Blood Pressure Pulse Oximetry Oxygen Delivery Oxygen Flow Rate Fraction of Inspired Oxygen Intake/Output Intake/Output: Intake & Output 09/18/24 09/19/24 09/20/24 09/21/24 23:59 23:59 23:59 23:59 Intake Total 2019 4750 820 Output Total 500 2300 2099 2074 Balance -500 -280 5188 -2484 Meds/Results Medications: Active Medications Generic Name Dose Route Start Last Admin Trade Name Freq PRN Reason Stop Dose Admin Acetaminophen 650 mg 09/19/24 04:05 09/19/24 21:15 Acetaminophen 325 Mg Tablet PO 650 mg Q6H PRN Administration Mild Pain (1-3) or Fever Albuterol 2.5 mg 09/19/24 02:00 09/21/24 14:05 Albuterol Sulfate Neb 2.5 Mg/3 Ml Inh INHALATION 2.5 mg Q6HRT TONY Administration Aspirin 81 mg 09/19/24 09:00 09/21/24 08:05 Aspirin 81 Mg Enteric Tablet PO 81 mg DAILY TONY Administration Atorvastatin Calcium 20 mg 09/19/24 09:00 09/21/24 08:05 Atorvastatin 20 Mg Tablet PO 20 mg DAILY TONY Administration Buprenorphine HCl 4 mg 09/19/24 06:45 09/21/24 13:16 Buprenorphine Hcl (*Crx) 2 Mg Sublingual Tablet SUBLINGUAL 4 mg Q8HR TONY Administration Buprenorphine HCl 8 mg 09/19/24 06:45 09/21/24 13:16 Buprenorphine Hcl (*Crx) 8 Mg Sublingual Tablet SUBLINGUAL 8 mg Q8HR TONY Administration Chlordiazepoxide HCl 10 mg 09/19/24 04:05 Chlordiazepoxide (*Crx) 10 Mg Capsule PO Q6H PRN CIWA 4-8 Doxepin HCl 25 mg 09/19/24 21:00 09/20/24 21:46 Doxepin Hcl 25 Mg Capsule PO 25 mg HS TONY Administration Enoxaparin Sodium 40 mg 09/19/24 09:00 09/21/24 08:12 Enoxaparin 40 Mg/0.4 Ml Syringe SUB-Q 40 mg DAILY TONY Administration Folic Acid 1 mg 09/19/24 09:00 09/21/24 08:04 Folic Acid 1 Mg Tablet PO 1 mg DAILY TONY Administration Furosemide 40 mg 09/19/24 09:00 09/21/24 08:05 Furosemide Inj 40 Mg/4 Ml Vial IV PUSH 40 mg Q12HR TONY Administration Hydroxyzine Pamoate 25 mg 09/20/24 16:51 09/21/24 08:20 Hydroxyzine Pamoate 25 Mg Capsule PO 25 mg Q4H PRN Administration Anxiety Metoprolol Tartrate 25 mg 09/19/24 09:00 09/21/24 08:05 Metoprolol Tartrate 25 Mg Tablet PO 25 mg DAILY TONY Administration Metoprolol Tartrate 12.5 mg 09/19/24 09:00 09/21/24 08:04 Metoprolol Tartrate 12.5 Mg Tablet PO 12.5 mg DAILY TONY Administration Nicotine 1 patch 09/18/24 23:25 09/21/24 08:12 Nicotine (*Pbkc) 7 Mg Patch TRANSDERM 1 patch DAILY TONY Administration Thiamine HCl 100 mg 09/19/24 10:05 09/21/24 08:05 Thiamine Hcl 100 Mg Tablet PO 100 mg QAM TONY Administration Radiology Results: ITS Impressions Chest X-Ray 09/18/24 19:17 IMPRESSION: Cardiomegaly with cardiac decompensation and pulmonary edema. Superimposed pneumonitis is highly suggestive. Opacity in the left costophrenic angle which may indicate a mass measuring 4.[address] evaluation advised. Chest CT 09/18/24 21:56 IMPRESSION: No evidence of mass is seen. The soft tissue density seen in the left costophrenic angle is fatty in nature. Left basilar subsegmental atelectasis. Mediastinal lymphadenopathy. Cholelithiasis Underlying emphysematous changes. Labs Labs: Laboratory Results - last 24 hr 09/21/24 06:27 WBC 8.3 RBC 4.38 L Hgb 12.9 L Hct 42.2 MCV 96.3 MCH 29.5 MCHC 30.6 L RDW 13.7 Plt Count 254 MPV 10.8 H Immature Gran % (Auto) 0.5 Neut % (Auto) 46.7 Lymph % (Auto) 39.3 [place] % (Auto) 9.0 H Eos % (Auto) 3.5 Baso % (Auto) 1.0 Lymph # (Auto) 3.27 H [place] # (Auto) 0.8 H Eos # (Auto) 0.3 Baso # (Auto) 0.1 Abs Immat Gran (auto) 0.04 H Absolute Neuts (auto) 3.9 Absolute Nucleated RBC 0.000 Nucleated RBC % 0.0 Sodium 138 Potassium 4.4 Chloride 95 L Carbon Dioxide 35 H Anion Gap 8 BUN 29 H Creatinine 0.97 Estim Creat Clear Calc 93 Estimated GFR > 60 Glucose 109 Calcium 8.8 Magnesium 2.4 H Total Bilirubin 0.3 AST 30 ALT 15 Alkaline Phosphatase 74 Total Protein 7.8 Albumin 4.1 Quality VTE Prophylaxis VTE prophylaxis: pharmacologic ordered
[2024-09-21] MEDS: ACETAMINOPHEN 325 MG TABLET 650 MG PO (21:29)
[2024-09-21] MEDS: DOXEPIN HCL 25 MG CAPSULE PO (21:29)
[2024-09-21] MEDS: guaiFENesin/DEXTROMETHORPHAN 10 ML UDC 5 ML PO (23:00)
[2024-09-22] VITALS (12 sets, daily range): BP systolic 120–133; BP diastolic 54–78; PULSE 69–102; RESP 16–21; TEMP 35.6–36.8; O2SAT 90–99
[2024-09-22] MEDS: ALBUTEROL SULFATE NEB 2.5 MG/3 ML INH INHALATION ×3 (01:11→14:03)
[2024-09-22] MEDS: BUPRENORPHINE HCL (*CRX) 8 MG SUBLINGUAL TABLET SUBLINGUAL ×2 (05:11→13:16)
[2024-09-22] MEDS: BUPRENORPHINE HCL (*CRX) 2 MG SUBLINGUAL TABLET 4 MG SUBLINGUAL ×2 (05:11→13:16)
[2024-09-22] MEDS: ATORVASTATIN 20 MG TABLET PO (08:46)
[2024-09-22] MEDS: METOPROLOL TARTRATE 25 MG TABLET PO (08:46)
[2024-09-22] MEDS: THIAMINE HCL 100 MG TABLET PO (08:46)
[2024-09-22] MEDS: FOLIC ACID 1 MG TABLET PO (08:46)
[2024-09-22] MEDS: NICOTINE (*PBKC) 7 MG PATCH 1 PATCH TRANSDERM (08:46)
[2024-09-22] MEDS: ENOXAPARIN 40 MG/0.4 ML SYRINGE SUB-Q (08:46)
[2024-09-22] MEDS: FUROSEMIDE INJ 40 MG/4 ML VIAL IV PUSH (08:46)
[2024-09-22] MEDS: METOPROLOL TARTRATE 12.5 MG TABLET PO (08:46)
[2024-09-22] MEDS: ASPIRIN 81 MG ENTERIC TABLET PO (08:46)
[2024-09-22] MEDS: ACETAMINOPHEN 325 MG TABLET 650 MG PO (08:50)
[2024-09-22 08:55] LABS: Hematocrit 41.8 % (42.0-52.0); Mean Corpuscular HGB Conc 31.1 g/dl (32-36); Mean Corpuscular Hemoglobin 29.7 pg (26-34); Mean Corpuscular Volume 95.7 fl (80-100); Mean Platelet Volume 10.1 fl (7.4-10.4); Platelet Count Result 238 k/mm3 (150-375); Red Blood Count 4.37 M/mm3 (4.6-6.20); Red Cell Distribution Width 13.6 % (11.5-14.5); White Blood Count 7.9 K/mm3 (4.5-10.0)
[2024-09-22 09:32] LABS: Anion Gap 7 mmol/L (4-12); Blood Urea Nitrogen 24 mg/dL (9-20); Calcium 8.8 mg/dL (8.4-10.2); Carbon Dioxide 35 mmol/L (22-30); Chloride 95 mmol/L (98-107); Estimated CRCL calculation 100 ml/min; Estimated Glomerular Filt Rate > 60; Glucose 149 mg/dL (65-110); Potassium 4.4 mmol/L (3.4-5.0); Sodium 137 mmol/L (137-145)
--- NOTE | 2024-09-22 12:50 | P.PNIM_ITS ---
Progress Note: A&P Assessment and Plan (1) Acute on chronic respiratory failure with hypoxia and hypercapnia: Code(s): J96.21 - Acute and chronic respiratory failure with hypoxia; J96.22 - Acute and chronic respiratory failure with hypercapnia Status: Acute Assessment and Plan: Patient presents with SOB and found tohave acute respiratory failure. ABG - 7.34/68/77 on 3L. After a 4 hours on BiPAP, ABG 7.37/67/65. CXR showing CMG with cardiac decompensation and pulmonary edema. CT chest showing emphysematous changes and mediastinal LN enlargement but nml Concern for fluid overload but BNP 33; he was started on IV Lasix. Currently on 10L HFNC. Wean as tolerated to baseline 4L. Encourage BiPAP use with naps, bedtime and as needed for worsening SOB. Consider resuming steroids if wheezing does not improve with diuresis. Continue Albuterol. continue on o2 continue lasix (2) Noncompliance: Code(s): Z91.199 - Patient's noncompliance with other medical treatment and regimen due to unspecified reason Status: Acute Assessment and Plan: Patient is noncompliant with BiPAP and lasix at home. compliance was encouraged (3) Fluid overload: Code(s): E87.70 - Fluid overload, unspecified Status: Acute Assessment and Plan: Patient with fluid overload with leg edema and possibly pulmonary edema (seen by CXR but not by CT). BNP 33. Echo as above. Consider right heart failure related to his untreated sleep apnea. Continue diuresis ordered conitue lasix will change to PO tommorw in anticipation of discharge (4) Chronic obstructive pulmonary disease: Code(s): J44.9 - Chronic obstructive pulmonary disease, unspecified Status: Acute Assessment and Plan: Patient with wheezing. He did receive Solu-Medrol in ED once but not continued. Albuterol started. Wheezing can be from pulmonary edema so will see if this improves without steroids. Continue bronchodilators as ordered. Steroid if does not improve but seems to be improving. (5) Alcohol abuse: Code(s): F10.10 - Alcohol abuse, uncomplicated Status: Acute Assessment and Plan: Patient has a hx of ongoing alcohol abuse. CIWA protocol started. No evidence of withdrawal at this time. Librium available as needed. Add thiamine; continue folate. Continue to monitor with CIWA alcohol cessation discussed (6) Hypertension: Code(s): I10 - Essential (primary) hypertension Status: Acute Assessment and Plan: Patient's blood pressure was reviewed on 09/19 Blood pressure remains reasonably well controlled Will continue to follow (7) Obstructive sleep apnea: Code(s): G47.33 - Obstructive sleep apnea (adult) (pediatric) Status: Acute Assessment and Plan: Encouraged compliance. ABG reviewed Plan Code status - full DVT prophylaxis - lovenox Subjective Date/time seen: 09/22/24 12:50 Interval history: No overnight events. Feeling better. He used BiPAP last night. Down to 4 L via nasal cannula which is home dose. Leg swelling and shortness of breath improving. I/O reviewed. his leg swelling is a bit better but lt leg still swollen Review of Systems Review of Systems: 12 systems were reviewed and are negativ e except for as per HPI. All systems reviewed & are unremarkable except as noted in HPI and below Exam Narrative: Gen - NARD sitting at the side of bed Chest - mild bibasilar crackles and mild end expiratory wheeze. nml RR CV - RRR S1/S2. Tele showing no significant dysrhythmias Abd - Soft, obese, NT Ext - 2+ pitting and indurated LE edema Neuro - Alert and appropriate. no tremors Psych - Nml mood and affect Skin - Warm and dry. dry LE skin with fine scale Objective Data Vital Signs Vital Signs: Vital Signs - 24 hr 09/21/24 13:17 09/21/24 14:07 09/21/24 14:15 Temperature Pulse Rate 91 93 Pulse Rate [Monitor] 86 Respiratory Rate 20 20 Blood Pressure Pulse Oximetry Oxygen Delivery Oxygen Flow Rate Fraction of Inspired Oxygen 09/21/24 15:46 09/21/24 15:58 09/21/24 15:59 Temperature 97.0 F L Pulse Rate 81 74 Pulse Rate [Monitor] Respiratory Rate 14 Blood Pressure 124/58 L Pulse Oximetry 92 Oxygen Delivery Nasal Cannula Oxygen Flow Rate 4 Fraction of Inspired Oxygen 09/21/24 19:46 09/21/24 19:48 09/21/24 19:59 Temperature Pulse Rate 83 80 85 Pulse Rate [Monitor] Respiratory Rate 20 20 20 Blood Pressure Pulse Oximetry 90 Oxygen Delivery Nasal Cannula Oxygen Flow Rate 4 Fraction of Inspired Oxygen 36 09/21/24 20:00 09/21/24 20:42 09/21/24 22:00 Temperature 98.0 F Pulse Rate 90 88 Pulse Rate [Monitor] Respiratory Rate 16 Blood Pressure 120/72 Pulse Oximetry 92 Oxygen Delivery Room Air Oxygen Flow Rate Fraction of Inspired Oxygen 09/21/24 22:24 09/22/24 00:00 09/22/24 00:00 Temperature 97.7 F Pulse Rate 99 102 H Pulse Rate [Monitor] Respiratory Rate 21 H 18 Blood Pressure 120/78 Pulse Oximetry 95 93 Oxygen Delivery BiPAP Oxygen Flow Rate Fraction of Inspired Oxygen 09/22/24 01:14 09/22/24 01:17 09/22/24 04:00 Temperature Pulse Rate 82 82 73 Pulse Rate [Monitor] Respiratory Rate 21 H 21 H Blood Pressure Pulse Oximetry 99 Oxygen Delivery BiPAP Oxygen Flow Rate Fraction of Inspired Oxygen 09/22/24 05:20 09/22/24 08:00 09/22/24 08:00 Temperature 98.2 F 96.6 F L Pulse Rate 69 77 96 Pulse Rate [Monitor] Respiratory Rate 16 18 Blood Pressure 133/62 130/54 L Pulse Oximetry 95 90 Oxygen Delivery Oxygen Flow Rate Fraction of Inspired Oxygen 09/22/24 08:46 09/22/24 08:46 09/22/24 09:00 Temperature Pulse Rate 92 92 Pulse Rate [Monitor] Respiratory Rate Blood Pressure Pulse Oximetry 91 Oxygen Delivery Nasal Cannula Oxygen Flow Rate 4 Fraction of Inspired Oxygen 09/22/24 09:58 09/22/24 09:58 09/22/24 11:41 Temperature 96.1 F L Pulse Rate 77 77 71 Pulse Rate [Monitor] Respiratory Rate 20 20 16 Blood Pressure 133/67 Pulse Oximetry 92 94 Oxygen Delivery Nasal Cannula Oxygen Flow Rate 4 Fraction of Inspired Oxygen Intake/Output Intake/Output: Intake & Output 09/19/24 09/20/24 09/21/24 09/22/24 23:59 23:59 23:59 23:59 Intake Total 2020 4750 1910 440 Output Total 7167 8866 3938 1100 Balance -280 5538 -415 -723 Meds/Results Medications: Active Medications Generic Name Dose Route Start Last Admin Trade Name Freq PRN Reason Stop Dose Admin Acetaminophen 650 mg 09/19/24 04:05 09/22/24 08:50 Acetaminophen 325 Mg Tablet PO 650 mg Q6H PRN Administration Mild Pain (1-3) or Fever Albuterol 2.5 mg 09/19/24 02:00 09/22/24 09:57 Albuterol Sulfate Neb 2.5 Mg/3 Ml Inh INHALATION 2.5 mg Q6HRT TONY Administration Aspirin 81 mg 09/19/24 09:00 09/22/24 08:46 Aspirin 81 Mg Enteric Tablet PO 81 mg DAILY TONY Administration Atorvastatin Calcium 20 mg 09/19/24 09:00 09/22/24 08:46 Atorvastatin 20 Mg Tablet PO 20 mg DAILY TONY Administration Buprenorphine HCl 4 mg 09/19/24 06:45 09/22/24 05:11 Buprenorphine Hcl (*Crx) 2 Mg Sublingual Tablet SUBLINGUAL 4 mg Q8HR TONY Administration Buprenorphine HCl 8 mg 09/19/24 06:45 09/22/24 05:11 Buprenorphine Hcl (*Crx) 8 Mg Sublingual Tablet SUBLINGUAL 8 mg Q8HR TONY Administration Chlordiazepoxide HCl 10 mg 09/19/24 04:05 Chlordiazepoxide (*Crx) 10 Mg Capsule PO Q6H PRN CIWA 4-8 Doxepin HCl 25 mg 09/19/24 21:00 09/21/24 21:29 Doxepin Hcl 25 Mg Capsule PO 25 mg HS TONY Administration Enoxaparin Sodium 40 mg 09/19/24 09:00 09/22/24 08:46 Enoxaparin 40 Mg/0.4 Ml Syringe SUB-Q 40 mg DAILY TONY Administration Folic Acid 1 mg 09/19/24 09:00 09/22/24 08:46 Folic Acid 1 Mg Tablet PO 1 mg DAILY TONY Administration Furosemide 40 mg 09/19/24 09:00 09/22/24 08:46 Furosemide Inj 40 Mg/4 Ml Vial IV PUSH 40 mg Q12HR TONY Administration Guaifenesin/Dextromethorphan 5 ml 09/21/24 22:24 09/21/24 23:00 Guaifenesin/Dextromethorphan 10 Ml Udc PO 5 ml Q4H PRN Administration Cough Hydroxyzine Pamoate 25 mg 09/20/24 16:51 09/21/24 08:20 Hydroxyzine Pamoate 25 Mg Capsule PO 25 mg Q4H PRN Administration Anxiety Metoprolol Tartrate 25 mg 09/19/24 09:00 09/22/24 08:46 Metoprolol Tartrate 25 Mg Tablet PO 25 mg DAILY TONY Administration Metoprolol Tartrate 12.5 mg 09/19/24 09:00 09/22/24 08:46 Metoprolol Tartrate 12.5 Mg Tablet PO 12.5 mg DAILY TONY Administration Nicotine 1 patch 09/18/24 23:25 09/22/24 08:46 Nicotine (*Pbkc) 7 Mg Patch TRANSDERM 1 patch DAILY TONY Administration Thiamine HCl 100 mg 09/19/24 10:05 09/22/24 08:46 Thiamine Hcl 100 Mg Tablet PO 100 mg QAM TONY Administration Radiology Results: ITS Impressions Chest X-Ray 09/18/24 19:17 IMPRESSION: Cardiomegaly with cardiac decompensation and pulmonary edema. Superimposed pneumonitis is highly suggestive. Opacity in the left costophrenic angle which may indicate a mass measuring 4.[address] evaluation advised. Chest CT 09/18/24 21:56 IMPRESSION: No evidence of mass is seen. The soft tissue density seen in the left costophrenic angle is fatty in nature. Left basilar subsegmental atelectasis. Mediastinal lymphadenopathy. Cholelithiasis Underlying emphysematous changes. Labs Labs: Laboratory Results - last 24 hr 09/22/24 08:45 WBC 7.9 RBC 4.37 L Hgb 13.0 L Hct 41.8 L MCV 95.7 MCH 29.7 MCHC 31.1 L RDW 13.6 Plt Count 238 MPV 10.1 Sodium 137 Potassium 4.4 Chloride 95 L Carbon Dioxide 35 H Anion Gap 7 BUN 24 H Creatinine 0.89 Estim Creat Clear Calc 100 Estimated GFR > 60 Glucose 149 H Calcium 8.8 Quality VTE Prophylaxis VTE prophylaxis: pharmacologic ordered
--- NOTE | 2024-09-22 12:54 | P.DS_ITS ---
DS: Admitting Diagnosis Discharge Date 09/22 Admitting Diagnosis leg edema DS: Discharge Diagnosis Discharge Diagnosis (1) Acute on chronic respiratory failure with hypoxia and hypercapnia: Code(s): J96.21 - Acute and chronic respiratory failure with hypoxia; J96.22 - Acute and chronic respiratory failure with hypercapnia Status: Acute (2) Noncompliance: Code(s): Z91.199 - Patient's noncompliance with other medical treatment and regimen due to unspecified reason Status: Acute (3) Fluid overload: Code(s): E87.70 - Fluid overload, unspecified Status: Acute (4) Chronic obstructive pulmonary disease: Code(s): J44.9 - Chronic obstructive pulmonary disease, unspecified Status: Acute (5) Alcohol abuse: Code(s): F10.10 - Alcohol abuse, uncomplicated Status: Acute (6) Hypertension: Code(s): I10 - Essential (primary) hypertension Status: Acute (7) Obstructive sleep apnea: Code(s): G47.33 - Obstructive sleep apnea (adult) (pediatric) Status: Acute DS: Summary Hospital Course Hospital Course: This is a 64-year-old male with chronic respiratory failure with hypercarbia and hypoxia on 4 L home oxygen, untreated sleep apnea, chronic obstructive pulmonary disease, congestive heart failure (recent echocardiogram showed normal left and right ventricular systolic function and normal diastolic function however echocardiogram in November 2022 showed the possibility of mild hypokinesis of the right ventricle), hypertension, hyperlipidemia, hepatitis-C, depression, anxiety, bipolar disorder, alcohol abuse, and polysubstance abuse who presented to the emergency department via private vehicle with complaints of shortness of breath. He has chronic shortness of breath, orthopnea, and lower extremity edema at baseline. Over the last 5 days he has felt increasingly short of breath with exertion and has noticed that his legs are much more swollen than usual. He does not weigh himself but presumes that he has gained weight. He has not been taking his furosemide as instructed but started taking it again 2 days ago without benefit. SpO2 was low despite being on his usual 4 L oxygen and he came in for evaluation. ECHO was done: Summary 1. Definity contrast administered improved wall motion interpretation. 2. Left ventricular chamber dimension is normal. 3. Left ventricular systolic function is normal, estimated at 60-65%. 4. There is mild concentric increased left ventricular wall thickness. 5. The left ventricular diastolic function is normal. 6. E/e' 8 is minimally elevated. 7. Left atrial chamber dimension is mildly enlarged. 8. Right atrial chamber dimension is mildly enlarged. 9. There is mild aortic valve sclerosis. 10. There is trace mitral valve regurgitation. 11. No pulmonary hypertension, estimated pulmonary arterial systolic pressure is 23 mmHg. # Acute on chronic respiratory failure with hypoxia and hypercapnia: Patient presents with SOB and found to have acute respiratory failure. ABG - 7.34/68/77 on 3L. After a 4 hours on BiPAP, ABG 7.37/67/65. CXR showing CMG with cardiac decompensation and pulmonary edema. CT chest showing emphysematous changes and mediastinal LN enlargement but nml Concern for fluid overload but BNP 33; he was started on IV Lasix. Currently on 10L HFNC. Wean as tolerated to baseline 4L. Encourage BiPAP use with naps, bedtime and as needed for worsening SOB. Consider resuming steroids if wheezing does not improve with diuresis. Continue Albuterol. continue on o2 continue lasix-home regimen- will send refills as pt out of meds at home his resp status is stable, he is comfortable when ambulating # Noncompliance: Patient is noncompliant with BiPAP and lasix at home. compliance was encouraged # Fluid overload: Patient with fluid overload with leg edema and possibly pulmonary edema (seen by CXR but not by CT). BNP 33. Echo as above. Consider right heart failure related to his untreated sleep apnea. Continue diuresis ordered conitue lasix will change to PO tommorw in anticipation of discharge # Chronic obstructive pulmonary disease: Patient with wheezing. He did receive Solu-Medrol in ED once but not continued. Albuterol started. Wheezing can be from pulmonary edema so will see if this improves without steroids. Continue bronchodilators as ordered. Steroid if does not improve but seems to be improving. # Alcohol abuse: Patient has a hx of ongoing alcohol abuse. CIWA protocol started. No evidence of withdrawal at this time. Librium available as needed. Add thiamine; continue folate. Continue to monitor with [facility] alcohol cessation discussed #Hypertension: Patient's blood pressure was reviewed on 09/19 Blood pressure remains reasonably well controlled no meds changes # Obstructive sleep apnea: Encouraged compliance. Status at Discharge Functional status at discharge: independent ambulation Overall status at discharge: patient is progressing back to baseline Time Spent with Patient Time attestation: Total time spent providing and/or coordinating discharge services: Time spent: Greater than 30 minutes Exam Narrative: Gen - NARD sitting at the side of bed, ambulating well Chest - mild bibasilar crackles and mild end expiratory wheeze. nml RR CV - RRR S1/S2. Tele showing no significant dysrhythmias Abd - Soft, obese, NT Ext - 2+ pitting and indurated LE edema Neuro - Alert and appropriate. no tremors Psych - Nml mood and affect Skin - Warm and dry. dry LE skin with fine scale DS: Data Data Completed and Pending Labs on day of discharge: Labs from last 24 hours 09/22/24 08:45 WBC 7.9 RBC 4.37 L Hgb 13.0 L Hct 41.8 L MCV 95.7 MCH 29.7 MCHC 31.1 L RDW 13.6 Plt Count 238 MPV 10.1 Sodium 137 Potassium 4.4 Chloride 95 L Carbon Dioxide 35 H Anion Gap 7 BUN 24 H Creatinine 0.89 Estim Creat Clear Calc 100 Estimated GFR > 60 Glucose 149 H Calcium 8.8 Discharge Plan Discharge Attending physician on discharge: Sena Telles Discharging Clinician: Teresa Rodriguez Patient Disposition: Home Activity: august shower Diet: heart healthy Discharge Instructions: You were admitted for shortness of breath and leg swelling. You were given IV lasix and we slowly diuresed water off of you. Please continue taking your lasix and the rest of medications as prescribed. Use acewrap and elevate your legs when sitting to help with leg swelling. Donot restart drinking alcohol. Take your multivitamins. Patient Instructions: Antibiotic Form, Heart Failure (DC) Patient Language: Syrian Stand Alone Forms: General Discharge Information Follow-up/Referrals: Marcia,Elton Tan [Primary Care Provider] - 2 Weeks Discharge Medications: Continued ammonium lactate 12 % lotion 1 applic TOPICAL BID Rx Instructions: apply to bilateral legs BID ipratropium-albuterol 0.5 mg-3 mg(2.5 mg base)/3 mL solution for nebulization 3 ml inhalation Q6H PRN (Reason: shortness of breath or wheezing) Qty: 90 0RF aspirin 81 mg tablet,delayed release (DR/EC) 81 mg PO DAILY nicotine 7 mg/24 hr patch 24 hour 1 patch topical Q24H furosemide 40 mg tablet 60 mg PO BID Qty: 90 0RF atorvastatin 20 mg tablet 20 mg PO DAILY Qty: 30 0RF doxepin 25 mg capsule 25 mg PO HS Qty: 30 0RF folic acid 1 mg Tablet 1 mg PO DAILY Qty: 14 0RF buprenorphine-naloxone 12-3 mg film 1 film sublingual TID Qty: 12 0RF metoprolol tartrate 37.5 mg tablet 37.5 mg PO DAILY Qty: 30 0RF albuterol sulfate 90 mcg/actuation HFA aerosol inhaler 2 puff INHALATION QID PRN (Reason: Shortness Of Breath Or Wheezing) Qty: 1 0RF Date of admission: 09/20/24 16:07 Primary Care Provider: MarciaDominick Admitting Provider: Germán Moran Attending physician on admission: Germán Moran Condition: Improved Quality VTE Prophylaxis VTE prophylaxis: pharmacologic ordered Hospitalist MIPS Heart Failure (Exclusion) Patient has history of Heart Transplant or Left Ventricular Assistive Device?: No IF YES, STOP HERE Heart Failure (Qualifier) Patient has current or prior documentation of LVEF less than or equal to 40%, or mod/servere depressed LVSF?: No IF NO, STOP HERE
--- NOTE | 2024-09-22 13:38 | PC.NURSE ---
Patient's personal belongings returned to patient. Patient noted to have a vape in locked closet in patient's room. Placed in patient's bag for discharge per patient.
== END 2024-09-22 16:25 | disposition home or self-care (01) | DRG 194 ==
LOC: ANHED 21:41 → ANHIMU 22:18 → ANH3MEDSUR 09-20 20:56
PROVIDERS: Internal Medicine; Physician Assistant; Admitting Provider Internal Medicine; Emergency Provider Emergency Medicine; PCP Internal Medicine Infectious Disease; Visit Provider Nurse Practitioner
DX: I11.0 Hypertensive heart disease with heart failure (principal); J96.21 Acute and chronic respiratory failure with hypoxia; J96.22 Acute and chronic respiratory failure with hypercapnia; Z91.199 Patient's noncompliance with other medical treatment and regimen due to unspecified reason; I50.9 Heart failure, unspecified; J44.9 Chronic obstructive pulmonary disease, unspecified; G47.33 Obstructive sleep apnea (adult) (pediatric); F10.10 Alcohol abuse, uncomplicated; E66.9 Obesity, unspecified; M19.90 Unspecified osteoarthritis, unspecified site; E78.5 Hyperlipidemia, unspecified; F31.9 Bipolar disorder, unspecified; Z99.81 Dependence on supplemental oxygen; Z87.891 Personal history of nicotine dependence
CPT/HCPCS: 36415; 36600; 71045; 71260; 80048; 80053; 80069; 82375; 82805; 83050; 83735; 83880; 84443; 84484; 85018; 85025; 85027; 85610; 85730; 87637; 93005; 94002; 94003; 94640; 96372; 96374; 96375; 97161; 97165; 99285; A9270; G0378; G0379; J0571; J1650; J1938; J2919; Q9967

== ENCOUNTER 2024-09-28 23:50 | Inpatient (IN) | payer OTHER, SELFPAY ==
--- NOTE | ~2024-09-28 | XR_ITS ---
Portable chest x-ray Comparison: 09/30/2024 Clinical History: Respiratory failure Findings: Endotracheal tube and NG tube are in place. Yewxx-oa-kdweczqt left pleural effusion presen t. There is extensive chronic interstitial disease and/or COPD. Possible mild sprain post pulmonary e gallo. Cardiomediastinal silhouette is stable. Bones and soft tissues are unremarkable. Impression: Xvrrj-tx-usnvytbc left pleural effusion with possible mild superimposed pulmonary edema. Underlying COPD and/or chronic interstitial disease. Support tubes, as above. Reviewed, dictated and finalized at location . Impression: Qctnf-oz-sfvezkom left pleural effusion with possible mild superimposed pulmona ry edema. Underlying COPD and/or chronic interstitial disease. Support tubes, as above.
--- NOTE | ~2024-09-28 | XR_ITS ---
Portable chest x-ray Comparison: 10/01/2024 Clinical History: COPD Findings: Probable small left pleural effusion with left basilar atelectasis versus pneumonia. There is underlying diffuse interstitial disease. Cardiomediastinal silhouette is stable. Bones and soft tissues are unremarkable. Impression: Small left pleural effusion with left basilar atelectasis versus pneumonia. Underlying diffuse chronic interstitial disease. Reviewed, dictated and finalized at location . Impression: Small left pleural effusion with left basilar atelectasis versus pneumonia. Underlying diffuse chronic interstitial disease.
--- NOTE | ~2024-09-28 | XR_ITS ---
XR abdomen gastric tube insert INDICATION: Evaluate NG tube placement position. TECHNIQUE: Limited KUB perform for evaluating NG tube . COMPARISON: No prior studies for comparison. FINDINGS: NG tube tip in the stomach. Visualized bowel gas pattern is unremarkable.There is cardiome karel. There is mild interstitial edema partially visualized. IMPRESSION: 1: NG tube tip in the stomach. 2: Cardiomegaly with mild interstitial edema. Reviewed, dictated and finalized at location B.
--- NOTE | ~2024-09-28 | XR_ITS ---
XR chest ET placement 09/29/2024 00:08 Indication: Endotracheal tube placement Procedure: AP portable chest Comparison: Comparison to multiple prior studies sequentially, with oldest reviewed study dated 07/10. Findings: Cardiomegaly with mild interstitial edema. Blunting left lateral costophrenic recess may re present small effusion or pericardial fat pad. There are healed left lower rib fractures. No pneumoth orax. Impression: 1: Cardiomegaly with interstitial edema. Reviewed, dictated and finalized at location B. Impression: 1: Cardiomegaly with interstitial edema.
--- NOTE | ~2024-09-28 | US_ITS ---
EXAMINATION:US venous doppler LE BI INDICATION:Bilateral lower extremity edema TECHNIQUE: Multiple grayscale, color flow and Doppler images of the right and left lower extremity de ep venous systems were obtained and reviewed. COMPARISON:No prior studies for comparison. FINDINGS: The common femoral, superficial femoral and popliteal veins demonstrate normal respiratory variation, augmentation and compressibility. Color flow is also seen within the posterior tibial, pe roneal, greater saphenous and profunda veins. IMPRESSION: 1: No lower extremity deep venous thrombosis. Reviewed, dictated and finalized at location B.
--- NOTE | ~2024-09-28 | XR_ITS ---
Portable chest x-ray Comparison: 09/28/2024 Clinical History: Respiratory failure Findings: Endotracheal tube and NG tube are in place. Small to moderate left pleural effusion presen t with left basilar airspace disease. There is mild haziness right lung base. 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 Cardiomediastinal silhouette is stable. Bones and soft tissue s are unremarkable. Impression: Qwidu-be-muifmfzn left pleural effusion with probable mild bibasilar pulmonary edema/atelectasis. Probable underlying COPD or other chronic interstitial disease. Support tubes, as above. Reviewed, dictated and finalized at location . Impression: Xlzvi-cp-tompodis left pleural effusion with probable mild bibasilar pulmonary edema/atelectasis. Probable underlying COPD or other chronic interstitial disease. Support tubes, as above.
[2024-09-28 23:49] VITALS: BP 160/96; PULSE 118; RESP 16; TEMP 36.9; O2SAT 95
--- NOTE | 2024-09-28 23:54 | ECG_ITS ---
Test Date: 2024-09-29 00:02:55 Measurements Intervals [place] Rate: 115 P: 71 NM: 182 QRS: 64 QRSD: 108 T: 50 QT: 332 QTc: 460 Interpretive Statements SINUS TACHYCARDIA INCOMPLETE RIGHT BUNDLE BRANCH BLOCK BASELINE WANDER- III ABNORMAL ECG Compared to ECG 09/18/2024 18:41:03 HEART RATE HAS INCREASED Electronically Signed On 09-29-2024 07:31:08 CDT by Dionicio Danielle D.O.
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
[2024-09-29] VITALS (111 sets, daily range): BP systolic 93–145; BP diastolic 45–96; PULSE 76–120; RESP 14–22; TEMP 35.4–36.9; O2SAT 83–98; BMI 37.7
[2024-09-29] MEDS: IPRATROPIUM BR 0.02% INH SOLN 0.5 MG/2.5 ML VIAL 1 MG INHALATION (00:08)
[2024-09-29] MEDS: ALBUTEROL SULFATE NEB 2.5 MG/3 ML INH 15 MG INHALATION (00:08)
[2024-09-29 00:12] LABS: Basophils Absolute Auto 0.1 K/mm3 (0.0-0.1); Eosinophils Percent Auto 11.1 % (0-4.4); Hematocrit 43.2 % (42.0-52.0); Hemoglobin 13.1 g/dL (14.0-18.0); Immature Granulocyte Absolute 0.09 K/mm3 (0.00-0.031); Lymphocytes Absolute Auto 2.71 K/mm3 (0.9-3.2); Lymphocytes Percent Auto 29.5 % (18.3-44.2); Mean Corpuscular HGB Conc 30.3 g/dl (32-36); Mean Corpuscular Hemoglobin 29.8 pg (26-34); Mean Corpuscular Volume 98.2 fl (80-100); Mean Platelet Volume 10.8 fl (7.4-10.4); Monocytes Percent Auto 11.3 % (2.6-8.5); Neutrophils Absolute Auto 4.2 K/mm3 (1.3-6.7); Neutrophils Percent Auto 46.1 % (45.5-73.1); Platelet Count Result 225 k/mm3 (150-375); Red Cell Distribution Width 13.7 % (11.5-14.5); White Blood Count 9.2 K/mm3 (4.5-10.0)
[2024-09-29] MEDS: fentaNYL CITRATE INJ (*CRX) 100 MCG/2 ML VIAL IV PUSH (00:12)
[2024-09-29] MEDS: MIDAZOLAM 100MG/NS 100ML(*CRX) 100 MG/100 ML BAG IV CONT ×2 (00:17→17:06)
[2024-09-29 00:21] LABS: Ethanol < 10 mg/dL (<10)
[2024-09-29] MEDS: PROPOFOL IV EMULSION 200 MG/20 ML VIAL 100 MG IV PUSH (00:23)
[2024-09-29 00:31] LABS: Alveolar/Arterial O2 Gradient 318.3 mmHg; Base Excess ABG -4.3 mEq/l (+/-2.0); Fractional Inspired Oxygen 65 %; Oxygen Content ABG 17.5 %vol (16.0-22.0); Oxygen Saturation ABG 90.7 % (95.0-100.0); Oxyhemoglobin 91.4 % THb (90.0-100.0); PO2 ABG 73.3 mmHg (80.0-100.0); PO2 FiO2 Ratio Arterial Blood 1.13 %; Total Hemoglobin 13.6 g/dL (12.0-18.0)
[2024-09-29 00:34] LABS: pH ABG 7.196 (7.350-7.450)
[2024-09-29 00:35] LABS: Arterial Blood Gas PEEP 5 cmH2O; Arterial Blood Gas Tidal Volume 520 ml; Arterial Blood Gas Vent Mode CMV; Arterial Blood Gas Ventilator rate 18 /MIN; Device VENTILATOR; Modified Allen's Test Pass; PCO2 ABG 66.1 mmHg (35.0-45.0); Site Drawn LEFT RADIAL
[2024-09-29 00:45] LABS: Alanine Aminotransferase 20 U/L (6-50); Alkaline Phosphatase 69 U/L (38-126); Anion Gap 10 mmol/L (4-12); Aspartate Amino Transferase 26 U/L (17-59); Bilirubin,Total 0.4 mg/dL (0.2-1.3); Blood Urea Nitrogen 20 mg/dL (9-20); Calcium 8.7 mg/dL (8.4-10.2); Carbon Dioxide 27 mmol/L (22-30); Chloride 100 mmol/L (98-107); Estimated CRCL calculation 132 ml/min; Estimated Glomerular Filt Rate > 60; Glucose 196 mg/dL (65-110); Potassium 4.5 mmol/L (3.4-5.0); Sodium 137 mmol/L (137-145); Total Protein 7.4 g/dL (6.3-8.2); Troponin I < 0.012 ng/mL (0.000-0.034)
[2024-09-29 01:01] LABS: Triglycerides 177 mg/dL (<150)
[2024-09-29 01:07] LABS: Add Urine Microscopic? YES; Appearance Urine Clear (Clear); Bacteria Urine None Seen /hpf; Bilirubin Urine Negative (Negative); Blood Urine Negative (Negative); Color Urine Yellow (Yellow); Glucose Urine UA Negative (Negative); Ketones Urine Negative (Negative); Leukocyte Esterase Ur Negative LEU/UL (Negative); Nitrate Urine Negative (Negative); Protein Urine 2+ mg/dL (Negative); RBC Urine 0-2 /hpf (0-2); Specific Grav Ur 1.018 (1.001-1.035); Squamous Epithelial Cell Urine None Seen /hpf (Few); Urobilinogen Urine 0.2 mg/dL (<2.0); WBC Urine 0-5 /hpf (0-3); pH Urine 5.5 (5.0-9.0)
[2024-09-29 01:12] LABS: Amphetamine Screen Urine Negative (Negative); Barbiturate Screen Urine Negative (Negative); Benzodiazepines Screen Urine Negative (Negative); Cannabinoid Screen Urine Negative (Negative); Cocaine Screen Urine Negative (Negative); Methadone Screen Urine Negative (Negative); Opiate Screen Urine Negative (Negative); Phencyclidine Screen Urine Negative (Negative)
[2024-09-29] MEDS: methylPREDNISolone SOD SUCC 125 MG VIAL IV PUSH (01:14)
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
[2024-09-29 01:55] LABS: Lactic Acid Reflex 2.8 mmol/L (0.7-2.0)
[2024-09-29 02:07] LABS: Reflex Lactic Acid Yes or No Add Lactic
--- NOTE | 2024-09-29 02:35 | PC.NURSE ---
This RN contacted pt daughter Tammy [phone] and notified her of pt receiving bed placement in ICU.
--- NOTE | 2024-09-29 02:53 | PC.NURSE ---
0250 report received from Reagan JAVIER.
[2024-09-29 03:13] LABS: MRSA (PCR) NOT DETECTED (NOT DETECTE)
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
--- NOTE | 2024-09-29 03:50 | ADMGEN ---
This patient, Ozzy Ch , was admitted to Intensive Care Unit-8 at 0312. Patient/family oriented to hospital policies and general routines including ID bracelet, bed and alarms, visiting hours, pain management, procedures, bathroom and other care routines, personal items, smoking policy, room service/diet, and visiting hours. Information on how to activate the Rapid Response Team has been discussed. Patient/Family are encouraged to report perceived risks to care and to ask questions if they do not understand what they are told or what they should do.
[2024-09-29 04:08] LABS: Lactic Acid 2.7 mmol/L (0.7-2.0)
[2024-09-29 04:36] LABS: Alveolar/Arterial O2 Gradient 247.4 mmHg; Arterial Blood Gas PEEP 5 cmH2O; Arterial Blood Gas Tidal Volume 520 ml; Arterial Blood Gas Vent Mode CMV; Arterial Blood Gas Ventilator rate 20 /MIN; Base Excess ABG -0.4 mEq/l (+/-2.0); Carboxyhemoglobin 0.7 % THb (0-2.0); Device VENTILATOR; Fractional Inspired Oxygen 50 %; HCO3 ABG 25.9 mEq/l (22.0-26.0); Methemoglobin ABG 0.2 %THb (0-1.5); Modified Allen's Test Unable to perform; PCO2 ABG 49.2 mmHg (35.0-45.0); PO2 ABG 61.5 mmHg (80.0-100.0); PO2 FiO2 Ratio Arterial Blood 1.23 %; Reduced Hemoglobin 9.1 %THb (0-5.0); Site Drawn RIGHT RADIAL; Total Hemoglobin 13.4 g/dL (12.0-18.0); pH ABG 7.339 (7.350-7.450)
[2024-09-29] MEDS: PROPOFOL IV EMULSION 100 ML 8.28 MG IV CONT (04:48)
[2024-09-29 07:46] LABS: Alanine Aminotransferase 22 U/L (6-50); Albumin Level 3.8 g/dL (3.5-5.1); Alkaline Phosphatase 64 U/L (38-126); Anion Gap 8 mmol/L (4-12); Aspartate Amino Transferase 31 U/L (17-59); Bilirubin,Total 0.5 mg/dL (0.2-1.3); Blood Urea Nitrogen 21 mg/dL (9-20); Calcium 8.7 mg/dL (8.4-10.2); Carbon Dioxide 26 mmol/L (22-30); Chloride 101 mmol/L (98-107); Estimated CRCL calculation 143 ml/min; Estimated Glomerular Filt Rate > 60; Glucose 155 mg/dL (65-110); Magnesium 1.9 mg/dL (1.6-2.3); Phosphorus 2.9 mg/dL (2.5-4.5); Potassium 4.4 mmol/L (3.4-5.0); Sodium 135 mmol/L (137-145); Total Protein 7.3 g/dL (6.3-8.2)
[2024-09-29 07:52] LABS: Basophils Percent Auto 0.2 % (0.2-1.2); Eosinophils Percent Auto 0.4 % (0-4.4); Hematocrit 39.4 % (42.0-52.0); Hemoglobin 12.2 g/dL (14.0-18.0); Immature Granulocyte Absolute 0.03 K/mm3 (0.00-0.031); Immature Granulocyte Percent A 0.3 % (0-0.5); Lymphocytes Absolute Auto 0.53 K/mm3 (0.9-3.2); Lymphocytes Percent Auto 5.5 % (18.3-44.2); Mean Corpuscular Hemoglobin 29.3 pg (26-34); Mean Corpuscular Volume 94.5 fl (80-100); Mean Platelet Volume 10.4 fl (7.4-10.4); Monocytes Absolute Auto 0.1 K/mm3 (0.1-0.6); Monocytes Percent Auto 1.1 % (2.6-8.5); Neutrophils Percent Auto 92.5 % (45.5-73.1); Platelet Count Result 195 k/mm3 (150-375); Red Blood Count 4.17 M/mm3 (4.6-6.20); Red Cell Distribution Width 13.5 % (11.5-14.5); White Blood Count 9.7 K/mm3 (4.5-10.0)
[2024-09-29] MEDS: IPRATROPIUM 0.5 MG/ALBUTEROL SULFATE 2.5 MG AMPUL.NEB 3 ML INHALATION ×3 (08:17→20:29)
[2024-09-29] MEDS: cefTRIAXone 2 GM/NS 100 ML 2 GM/100 ML BAG IVPB (09:08)
[2024-09-29] MEDS: FUROSEMIDE INJ 40 MG/4 ML VIAL IV PUSH (09:09)
[2024-09-29] MEDS: METOPROLOL TARTRATE 12.5 MG TABLET 37.5 MG PO (09:09)
[2024-09-29] MEDS: FOLIC ACID 1 MG TABLET PO (09:09)
[2024-09-29] MEDS: ATORVASTATIN 20 MG TABLET PO (09:09)
[2024-09-29] MEDS: ASPIRIN 81 MG CHEWABLE TABLET PO (09:09)
[2024-09-29] MEDS: ENOXAPARIN 40 MG/0.4 ML SYRINGE SUB-Q (09:09)
[2024-09-29] MEDS: methylPREDNISolone SOD SUCC 40 MG VIAL IV PUSH ×3 (09:25→17:02)
[2024-09-29] MEDS: THIAMINE HCL 200 MG/2 ML VIAL 100 MG IV PUSH (10:46)
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
[2024-09-29 13:19] LABS: Glucose Point of Care 192 mg/dl (65-105)
[2024-09-29] MEDS: PANTOPRAZOLE SODIUM IV 40 MG VIAL IV PUSH (14:06)
[2024-09-29] MEDS: PROPOFOL IV EMULSION 100 ML 4.14 MG IV CONT ×2 (15:33)
[2024-09-29 17:13] LABS: Glucose Point of Care 171 mg/dl (65-105)
[2024-09-29] MEDS: DOXEPIN HCL 25 MG CAPSULE PO (20:10)
[2024-09-29] MEDS: MINERAL OIL/WHITE PETROLATUM OINTMENT 1 APPLIC EACH EYE (20:10)
[2024-09-30] VITALS (40 sets, daily range): BP systolic 117–142; BP diastolic 52–78; PULSE 63–100; RESP 20–24; TEMP 36.8–37; O2SAT 88–96
[2024-09-30] MEDS: methylPREDNISolone SOD SUCC 40 MG VIAL IV PUSH (00:10)
[2024-09-30 00:35] LABS: Glucose Point of Care 164 mg/dl (65-105)
[2024-09-30] MEDS: IPRATROPIUM 0.5 MG/ALBUTEROL SULFATE 2.5 MG AMPUL.NEB 3 ML INHALATION ×4 (02:05→20:17)
[2024-09-30 03:52] LABS: Basophils Percent Auto 0.1 % (0.2-1.2); Hematocrit 39.4 % (42.0-52.0); Hemoglobin 12.5 g/dL (14.0-18.0); Immature Granulocyte Absolute 0.09 K/mm3 (0.00-0.031); Immature Granulocyte Percent A 0.7 % (0-0.5); Lymphocytes Percent Auto 5.8 % (18.3-44.2); Mean Corpuscular HGB Conc 31.7 g/dl (32-36); Mean Corpuscular Hemoglobin 29.5 pg (26-34); Mean Corpuscular Volume 92.9 fl (80-100); Mean Platelet Volume 11.1 fl (7.4-10.4); Monocytes Absolute Auto 0.3 K/mm3 (0.1-0.6); Monocytes Percent Auto 2.1 % (2.6-8.5); Neutrophils Percent Auto 91.3 % (45.5-73.1); Platelet Count Result 210 k/mm3 (150-375); Red Blood Count 4.24 M/mm3 (4.6-6.20); Red Cell Distribution Width 13.8 % (11.5-14.5); White Blood Count 12.1 K/mm3 (4.5-10.0)
[2024-09-30 04:07] LABS: Lactic Acid Reflex 2.2 mmol/L (0.7-2.0)
[2024-09-30 04:09] LABS: Alanine Aminotransferase 20 U/L (6-50); Albumin Level 3.7 g/dL (3.5-5.1); Alkaline Phosphatase 71 U/L (38-126); Anion Gap 7 mmol/L (4-12); Aspartate Amino Transferase 25 U/L (17-59); Bilirubin,Total 0.3 mg/dL (0.2-1.3); Blood Urea Nitrogen 26 mg/dL (9-20); Carbon Dioxide 29 mmol/L (22-30); Chloride 100 mmol/L (98-107); Estimated CRCL calculation 114 ml/min; Estimated Glomerular Filt Rate > 60; Glucose 189 mg/dL (65-110); Magnesium 2.1 mg/dL (1.6-2.3); Phosphorus 3.2 mg/dL (2.5-4.5); Potassium 4.2 mmol/L (3.4-5.0); Sodium 136 mmol/L (137-145); Total Protein 7.4 g/dL (6.3-8.2)
[2024-09-30] MEDS: PROPOFOL IV EMULSION 100 ML 8.28 MG IV CONT ×2 (04:42→15:59)
[2024-09-30 05:22] LABS: Alveolar/Arterial O2 Gradient 245.8 mmHg; Base Excess ABG 3.2 mEq/l (+/-2.0); Carboxyhemoglobin 0.2 % THb (0-2.0); Fractional Inspired Oxygen 55 %; HCO3 ABG 29.1 mEq/l (22.0-26.0); Methemoglobin ABG 0.3 %THb (0-1.5); Oxygen Content ABG 18.3 %vol (16.0-22.0); Oxygen Saturation ABG 96.9 % (95.0-100.0); Oxyhemoglobin 96.7 % THb (90.0-100.0); PCO2 ABG 49.1 mmHg (35.0-45.0); PO2 ABG 91.7 mmHg (80.0-100.0); PO2 FiO2 Ratio Arterial Blood 1.67 %; Reduced Hemoglobin 2.8 %THb (0-5.0); Total Hemoglobin 13.4 g/dL (12.0-18.0)
[2024-09-30 05:23] LABS: Device VENTILATOR; Modified Allen's Test Pass; Site Drawn LEFT RADIAL
[2024-09-30 05:25] LABS: Arterial Blood Gas PEEP 8 cmH2O; Arterial Blood Gas Vent Mode CMV; Arterial Blood Gas Ventilator rate 20 /MIN
[2024-09-30 05:26] LABS: Arterial Blood Gas Tidal Volume 520 ml
[2024-09-30 05:43] LABS: Glucose Point of Care 184 mg/dl (65-105)
[2024-09-30 05:48] LABS: Reflex Lactic Acid Yes or No Add Lactic
[2024-09-30] MEDS: ENOXAPARIN 40 MG/0.4 ML SYRINGE SUB-Q (09:28)
[2024-09-30] MEDS: THIAMINE HCL 200 MG/2 ML VIAL 100 MG IV PUSH (09:28)
[2024-09-30] MEDS: ASPIRIN 81 MG CHEWABLE TABLET PO (09:28)
[2024-09-30] MEDS: cefTRIAXone 2 GM/NS 100 ML 2 GM/100 ML BAG IVPB (09:28)
[2024-09-30] MEDS: PANTOPRAZOLE SODIUM IV 40 MG VIAL IV PUSH (09:28)
[2024-09-30] MEDS: ATORVASTATIN 20 MG TABLET PO (09:28)
[2024-09-30] MEDS: METOPROLOL TARTRATE 12.5 MG TABLET 37.5 MG PO (09:30)
[2024-09-30] MEDS: MINERAL OIL/WHITE PETROLATUM OINTMENT 1 APPLIC EACH EYE ×2 (09:31→20:50)
[2024-09-30] MEDS: FOLIC ACID 1 MG/0.2 ML INJ IV PUSH (10:27)
--- NOTE | 2024-09-30 11:54 | WPDINTPN ---
Progress Note: A&P Assessment and Plan (1) Acute on chronic respiratory failure with hypoxia and hypercapnia: Code(s): J96.21 - Acute and chronic respiratory failure with hypoxia; J96.22 - Acute and chronic respiratory failure with hypercapnia Status: Acute Assessment and Plan: 09/28/2024: Patient presented with respiratory distress, cyanosis. Likely did not have his oxygen on, the machine was turned off or he was out of oxygen at home, according to the daughter who told the hospitalist and ER physician. Family called 911, when the EMS arrived he was found to be cyanotic and was intubated on the field with ketamine E and etomidate. He was brought to the [facility] the ED with bag-mask ventilation. Initial ABG showed hypercapnic respiratory failure. Patient also has ongoing compliance issues with his medications and BiPAP use -currently on CMV mode of ventilation, peep of 5, 60% FiO2 -ABGs reviewed, ventilator adjusted, will increase PEEP to 8 -chest x-ray reviewed, will give Lasix -diffuse wheezing bilaterally, start Solu-Medrol -continue DuoNebs -maintain O2 sats greater than 90% -continue ceftriaxone (09/29) for possible COPD exacerbation (2) COPD exacerbation: Code(s): J44.1 - Chronic obstructive pulmonary disease with (acute) exacerbation Status: Acute Assessment and Plan: Possible COPD exacerbation given hypercapnic respiratory failure -treatment as above (3) Hypertension: Code(s): I10 - Essential (primary) hypertension Status: Acute Assessment and Plan: Blood pressures are stable, -continue metoprolol (4) Hyperlipidemia: Code(s): E78.5 - Hyperlipidemia, unspecified Status: Acute Assessment and Plan: Continue atorvastatin (5) Cardiac volume overload: Code(s): E87.79 - Other fluid overload Status: Acute Assessment and Plan: Will give 1 dose of Lasix since chest x-ray shows interstitial edema 01/29/2025: Venous Dopplers were negative for DVT 07/11/2024 Echocardiogram: Summary 1. Definity contrast administered improved wall motion interpretation. 2. Left ventricular chamber dimension is normal. 3. Left ventricular systolic function is normal, estimated at 60-65%. 4. There is mild concentric increased left ventricular wall thickness. 5. The left ventricular diastolic function is normal. 6. E/e' 8 is minimally elevated. 7. Left atrial chamber dimension is mildly enlarged. 8. Right atrial chamber dimension is mildly enlarged. 9. There is mild aortic valve sclerosis. 10. There is trace mitral valve regurgitation. 11. No pulmonary hypertension, estimated pulmonary arterial systolic pressure is 23 mmHg. 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 to be more compliant with his medications, oxygen, bronchodilators, BiPAP (7) Tobacco abuse disorder: Code(s): Z72.0 - Tobacco use Status: Acute Assessment and Plan: Will probation counselor patient when he is extubated (8) Alcohol abuse: Code(s): F10.10 - Alcohol abuse, uncomplicated Status: Acute Assessment and Plan: Started patient on thiamine and folic acid -drinks 5-6 shots of fireball daily (9) Polysubstance abuse: Code(s): F19.10 - Other psychoactive substance abuse, uncomplicated Status: Acute Assessment and Plan: Urine drug screen was negative -patient is stopped using drugs since he is on Suboxone now Plan DVT prophylaxis: Lovenox Stress ulcer prophylaxis: Protonix Nutrition: Tolerating tube feeds Code Status: Full code Critical Care Time Spent: 33 minutes 09/29: Discussed with daughter and updated with patient's condition and plan of care. I answered all questions Due to a high probability of clinically significant, life threatening deterioration, the patient required my highest level of preparedness to intervene emergently and I personally spent this critical care time directly and personally managing the patient. This critical care time included obtaining a history; examining the patient; pulse oximetry; ordering and review of studies; arranging urgent treatment with development of a management plan; evaluation of patient's response to treatment; frequent reassessment; and discussions with other providers. It was exclusive of separately billable procedures and treating other patients and teaching time. Please see Assessment and Plan section and the rest of the note for further information on patient assessment and treatment This dictation may have been done utilizing a voice recognition system. Attempts have been made to correct errors. However, there may be uncorrected grammatical, spelling, and recognitions errors present. Subjective Date/time seen: 09/30/24 11:54 Interval history: Reason for consult: Acute respiratory failure, COPD exacerbation, possible CHF exacerbation, noncompliance 09/30/2024: Patient seen and examined in the ICU, remains intubated on CMV mode of ventilation, peep of 8, 55% FiO2. Sedated with propofol and Versed infusion, patient opens eyes, follows simple commands and nods to questions. Good urine output in response to diuresis, hemodynamically stable, afebrile. Review of Systems Review of Systems: ROS unobtainable: Yes unobtainable due to endotracheal tube, unobtainable due to medical condition and unobtainable due to mental status Exam Narrative: General: Intubated, sedated in no acute distress HEENT:? Pupils are equal, reactive, sclera ischemia, ETT in place Neck:? Supple Respiratory:? Coarse breath sounds bilaterally, otherwise adequate air entry, no wheezing this morning Cardiac:? S1-S2 normal, regular rate and rhythm Abdomen:? Soft, nontender, protuberant, hypoactive bowel sounds Extremities:? pitting edema bilateral lower extremities, palpable pedal pulses Neuro:? Intubated, sedated, does not open his eyes or follow simple commands Skin:? Chronic bilateral lower extremity venous stasis changes Psych:? Unable to assess at this time Objective Data Vital Signs Vital Signs: Vital Signs - 24 hr 09/29/24 12:00 09/29/24 12:00 09/29/24 12:00 Temperature 98.5 F Pulse Rate 81 Respiratory Rate 20 Blood Pressure 106/52 L Pulse Oximetry 89 L 89 L Oxygen Delivery Mechanical Ventilation Fraction of Inspired Oxygen 50 50 09/29/24 12:00 09/29/24 12:00 09/29/24 12:00 Temperature Pulse Rate 80 80 85 Respiratory Rate 20 20 Blood Pressure Pulse Oximetry Oxygen Delivery Fraction of Inspired Oxygen 09/29/24 13:39 09/29/24 13:40 09/29/24 14:00 Temperature Pulse Rate 80 80 77 Respiratory Rate 20 20 20 Blood Pressure Pulse Oximetry Oxygen Delivery Fraction of Inspired Oxygen 09/29/24 14:00 09/29/24 14:00 09/29/24 14:00 Temperature 98.3 F Pulse Rate 80 77 78 Respiratory Rate 20 20 Blood Pressure 112/55 L Pulse Oximetry 92 Oxygen Delivery Fraction of Inspired Oxygen 09/29/24 14:10 09/29/24 14:10 09/29/24 14:24 Temperature Pulse Rate 76 76 81 Respiratory Rate 20 20 Blood Pressure Pulse Oximetry 92 Oxygen Delivery Mechanical Ventilation Fraction of Inspired Oxygen 50 09/29/24 15:33 09/29/24 15:33 09/29/24 15:57 Temperature Pulse Rate 93 93 101 H Respiratory Rate 20 20 22 H Blood Pressure Pulse Oximetry Oxygen Delivery Fraction of Inspired Oxygen 09/29/24 16:00 09/29/24 16:00 09/29/24 16:00 Temperature 98.3 F Pulse Rate 99 Respiratory Rate 21 H Blood Pressure 126/63 Pulse Oximetry 93 93 Oxygen Delivery Mechanical Ventilation Fraction of Inspired Oxygen 50 50 09/29/24 16:00 09/29/24 16:00 09/29/24 16:00 Temperature Pulse Rate 98 96 100 Respiratory Rate 20 20 Blood Pressure Pulse Oximetry Oxygen Delivery Fraction of Inspired Oxygen 09/29/24 16:42 09/29/24 17:03 09/29/24 17:06 Temperature Pulse Rate 90 87 88 Respiratory Rate 20 20 Blood Pressure Pulse Oximetry 91 Oxygen Delivery Mechanical Ventilation Fraction of Inspired Oxygen 50 09/29/24 18:00 09/29/24 18:00 09/29/24 18:00 Temperature Pulse Rate 83 83 84 Respiratory Rate 20 20 Blood Pressure Pulse Oximetry Oxygen Delivery Fraction of Inspired Oxygen 09/29/24 18:00 09/29/24 19:00 09/29/24 19:01 Temperature 98.2 F 98.2 F Pulse Rate 82 83 82 Respiratory Rate 20 20 20 Blood Pressure 130/62 124/63 Pulse Oximetry 92 87 L 93 Oxygen Delivery Fraction of Inspired Oxygen 09/29/24 19:15 09/29/24 19:30 09/29/24 19:31 Temperature 98.2 F 98.1 F 98.1 F Pulse Rate 82 81 79 Respiratory Rate 20 20 20 Blood Pressure 116/62 Pulse Oximetry 94 90 93 Oxygen Delivery Fraction of Inspired Oxygen 09/29/24 19:45 09/29/24 20:00 09/29/24 20:00 Temperature 98.1 F Pulse Rate 79 79 84 Respiratory Rate 20 20 Blood Pressure Pulse Oximetry 94 94 Oxygen Delivery Mechanical Ventilation Fraction of Inspired Oxygen 50 09/29/24 20:00 09/29/24 20:00 09/29/24 20:00 Temperature Pulse Rate 79 79 Respiratory Rate 20 20 Blood Pressure Pulse Oximetry Oxygen Delivery Fraction of Inspired Oxygen 50 09/29/24 20:00 09/29/24 20:01 09/29/24 20:15 Temperature 98.1 F 98.0 F 98.1 F Pulse Rate 79 86 88 Respiratory Rate 20 20 20 Blood Pressure 120/62 Pulse Oximetry 88 L 92 90 Oxygen Delivery Fraction of Inspired Oxygen 09/29/24 20:29 09/29/24 20:30 09/29/24 20:30 Temperature 98.0 F Pulse Rate 85 85 83 Respiratory Rate 20 20 Blood Pressure Pulse Oximetry 93 87 L Oxygen Delivery Mechanical Ventilation Fraction of Inspired Oxygen 50 09/29/24 20:31 09/29/24 20:45 09/29/24 21:00 Temperature 98.0 F 98.1 F 98.1 F Pulse Rate 86 87 85 Respiratory Rate 20 20 20 Blood Pressure 121/60 Pulse Oximetry 93 93 89 L Oxygen Delivery Fraction of Inspired Oxygen 09/29/24 21:01 09/29/24 21:15 09/29/24 21:30 Temperature 98.1 F 98.0 F 98.0 F Pulse Rate 85 85 83 Respiratory Rate 20 20 20 Blood Pressure 110/53 L 113/54 L Pulse Oximetry 93 92 87 L Oxygen Delivery Fraction of Inspired Oxygen 09/29/24 21:31 09/29/24 21:45 09/29/24 22:00 Temperature 98.0 F 98.0 F Pulse Rate 84 83 82 Respiratory Rate 20 20 20 Blood Pressure Pulse Oximetry 92 92 Oxygen Delivery Fraction of Inspired Oxygen 09/29/24 22:00 09/29/24 22:00 09/29/24 22:00 Temperature 97.9 F Pulse Rate 82 82 82 Respiratory Rate 20 20 Blood Pressure 114/55 L Pulse Oximetry 92 Oxygen Delivery Fraction of Inspired Oxygen 09/29/24 22:00 09/29/24 22:01 09/29/24 22:15 Temperature 98.0 F 98.0 F 98.0 F Pulse Rate 81 82 83 Respiratory Rate 20 20 20 Blood Pressure 114/55 L Pulse Oximetry 86 L 92 91 Oxygen Delivery Fraction of Inspired Oxygen 09/29/24 22:30 09/29/24 22:31 09/29/24 22:45 Temperature 97.9 F 97.9 F 97.9 F Pulse Rate 88 84 91 Respiratory Rate 20 20 20 Blood Pressure 129/61 Pulse Oximetry 84 L 92 95 Oxygen Delivery Fraction of Inspired Oxygen 09/29/24 23:00 09/29/24 23:01 09/29/24 23:15 Temperature 97.9 F 97.9 F 98.0 F Pulse Rate 83 85 83 Respiratory Rate 20 20 20 Blood Pressure 123/56 L Pulse Oximetry 86 L 93 94 Oxygen Delivery Fraction of Inspired Oxygen 09/29/24 23:26 09/29/24 23:30 09/29/24 23:31 Temperature 98.0 F 98.1 F Pulse Rate 90 88 86 Respiratory Rate 20 20 Blood Pressure 127/60 Pulse Oximetry 95 83 L 94 Oxygen Delivery Mechanical Ventilation Fraction of Inspired Oxygen 55 09/29/24 23:45 09/30/24 00:00 09/30/24 00:00 Temperature 98.2 F Pulse Rate 85 88 89 Respiratory Rate 20 20 Blood Pressure Pulse Oximetry 93 94 Oxygen Delivery Mechanical Ventilation Fraction of Inspired Oxygen 55 09/30/24 00:00 09/30/24 00:00 09/30/24 00:00 Temperature 98.3 F 98.2 F Pulse Rate 89 87 Respiratory Rate 20 20 Blood Pressure 122/60 Pulse Oximetry 94 88 L Oxygen Delivery Fraction of Inspired Oxygen 55 09/30/24 00:00 09/30/24 00:00 09/30/24 00:01 Temperature 98.2 F Pulse Rate 83 83 83 Respiratory Rate 20 20 20 Blood Pressure 122/60 Pulse Oximetry 93 Oxygen Delivery Fraction of Inspired Oxygen 09/30/24 00:15 09/30/24 00:30 09/30/24 00:31 Temperature 98.3 F 98.4 F 98.4 F Pulse Rate 87 86 85 Respiratory Rate 20 20 20 Blood Pressure 118/52 L Pulse Oximetry 93 92 94 Oxygen Delivery Fraction of Inspired Oxygen 09/30/24 00:45 09/30/24 01:00 09/30/24 01:01 Temperature 98.4 F 98.5 F 98.5 F Pulse Rate 87 84 84 Respiratory Rate 20 20 20 Blood Pressure 117/56 L Pulse Oximetry 94 93 94 Oxygen Delivery Fraction of Inspired Oxygen 09/30/24 02:00 09/30/24 02:00 09/30/24 02:00 Temperature 98.5 F Pulse Rate 84 84 84 Respiratory Rate 20 20 Blood Pressure 123/53 L Pulse Oximetry 95 Oxygen Delivery Fraction of Inspired Oxygen 09/30/24 02:00 09/30/24 02:05 09/30/24 02:07 Temperature Pulse Rate 84 85 85 Respiratory Rate 20 20 Blood Pressure Pulse Oximetry 95 Oxygen Delivery Mechanical Ventilation Fraction of Inspired Oxygen 55 09/30/24 02:21 09/30/24 04:00 09/30/24 04:00 Temperature Pulse Rate 93 90 Respiratory Rate 20 Blood Pressure Pulse Oximetry Oxygen Delivery Fraction of Inspired Oxygen 55 09/30/24 04:00 09/30/24 04:00 09/30/24 04:24 Temperature 98.5 F Pulse Rate 90 90 90 Respiratory Rate 20 20 20 Blood Pressure 140/61 Pulse Oximetry 96 Oxygen Delivery Fraction of Inspired Oxygen 09/30/24 04:30 09/30/24 04:42 09/30/24 05:18 Temperature Pulse Rate 89 88 84 Respiratory Rate 20 20 Blood Pressure Pulse Oximetry 95 96 Oxygen Delivery Mechanical Ventilation Mechanical Ventilation Fraction of Inspired Oxygen 55 55 09/30/24 06:00 09/30/24 06:00 09/30/24 06:00 Temperature 98.5 F Pulse Rate 89 89 89 Respiratory Rate 20 20 Blood Pressure 142/65 H Pulse Oximetry 94 Oxygen Delivery Fraction of Inspired Oxygen 09/30/24 06:00 09/30/24 08:00 09/30/24 08:00 Temperature 98.6 F Pulse Rate 89 94 Respiratory Rate 20 20 Blood Pressure 133/78 Pulse Oximetry 91 93 Oxygen Delivery Mechanical Ventilation Fraction of Inspired Oxygen 55 09/30/24 08:00 09/30/24 08:00 09/30/24 08:00 Temperature Pulse Rate 93 94 Respiratory Rate 21 H 21 H Blood Pressure Pulse Oximetry Oxygen Delivery Fraction of Inspired Oxygen 55 09/30/24 08:00 09/30/24 08:53 09/30/24 08:56 Temperature Pulse Rate 78 78 86 Respiratory Rate 20 Blood Pressure Pulse Oximetry 93 Oxygen Delivery Mechanical Ventilation Fraction of Inspired Oxygen 55 09/30/24 09:30 09/30/24 09:30 09/30/24 10:00 Temperature Pulse Rate 95 83 Respiratory Rate 21 H Blood Pressure 136/58 L Pulse Oximetry Oxygen Delivery Fraction of Inspired Oxygen 09/30/24 10:00 09/30/24 10:00 09/30/24 10:00 Temperature 98.3 F Pulse Rate 85 84 82 Respiratory Rate 21 H 22 H Blood Pressure 137/60 Pulse Oximetry 92 Oxygen Delivery Fraction of Inspired Oxygen 09/30/24 10:46 Temperature Pulse Rate 81 Respiratory Rate Blood Pressure Pulse Oximetry 92 Oxygen Delivery Mechanical Ventilation Fraction of Inspired Oxygen 50 Intake/Output Intake/Output: Intake & Output 09/27/24 09/28/24 09/29/24 09/30/24 23:59 23:59 23:59 23:59 Intake Total 606.2 760.1 Output Total 1650 625 Balance -1043.8 135.1 Meds/Results Medications: Active Medications Generic Name Dose Route Start Last Admin Trade Name Freq PRN Reason Stop Dose Admin Albuterol/Ipratropium 3 ml 09/29/24 08:00 09/30/24 08:52 Ipratropium 0.5 Mg/Albuterol Sulfate 2.5 Mg Ampul.Neb 3 Ml INHALATION 3 ml Q6HRT TONY Administration Aspirin 81 mg 09/29/24 08:45 09/30/24 09:28 Aspirin 81 Mg Chewable Tablet PO 81 mg DAILY@0800 TONY Administration Atorvastatin Calcium 20 mg 09/29/24 09:00 09/30/24 09:28 Atorvastatin 20 Mg Tablet PO 20 mg DAILY TONY Administration Dextrose 12.5 gm 09/29/24 10:29 Dextrose 50% 25 Gm/50 Ml Syringe IV PUSH PRN PRN Hypoglycemia Protocol Doxepin HCl 25 mg 09/29/24 21:00 09/29/24 20:10 Doxepin Hcl 25 Mg Capsule PO 25 mg HS TONY Administration Enoxaparin Sodium 40 mg 09/29/24 09:00 09/30/24 09:28 Enoxaparin 40 Mg/0.4 Ml Syringe SUB-Q 40 mg DAILY TONY Administration Folic Acid 1 mg 09/30/24 09:00 09/30/24 10:27 Folic Acid 1 Mg/0.2 Ml Inj IV PUSH 1 mg QAM TONY Administration Glucagon 1 mg 09/29/24 10:29 Glucagon For Inj 1 Mg Vial IM PRN PRN Hypoglycemia Protocol Glucose 15 gm 09/29/24 10:29 Glucose Oral Gel 15 Gm Of Glucse In 37.5 Gm Tube PO PRN PRN Hypoglycemia Protocol Propofol 100 mls @ 8.28 mls/hr 09/29/24 02:55 09/30/24 10:00 Diprivan IV CONT 10 mcg/kg/min .Q12H5M TONY 8.28 mls/hr Titration Protocol 10 MCG/KG/MIN Ceftriaxone Sodium 2 gm in 100 mls @ 200 mls/hr 09/29/24 09:00 09/30/24 09:28 Rocephin 2 Gm/Ns 100 Ml IVPB 200 mls/hr Q24H TONY Administration Dextrose 1,000 mls @ 100 mls/hr 09/29/24 10:29 Dextrose 5% 1,000 Ml IVPB PRN PRN Hypoglycemia Protocol Midazolam HCl 100 mg in 100 mls @ 3 mls/hr 09/29/24 16:55 09/30/24 10:00 Versed 100 Mg/Ns 100 Ml IV CONT 3 mg/hr .[id number] TONY 3 mls/hr Titration Protocol 3 MG/HR Insulin Aspart 3 - 6 units 09/29/24 12:00 09/30/24 11:50 Insulin Aspart (*Bkc) 100 Units/Ml SUB-Q Not Given Q6HR TONY Protocol Metoprolol Tartrate 37.5 mg 09/29/24 09:00 09/30/24 09:30 Metoprolol Tartrate 12.5 Mg Tablet PO 37.5 mg DAILY TONY Administration Multi-Ingred Cream/Lotion/Oil/Oint 1 applic 09/29/24 21:00 09/30/24 09:31 Mineral Oil/White Petrolatum Ointment EACH EYE 1 applic Q12HR TONY Administration Pantoprazole Sodium 40 mg 09/30/24 09:00 09/30/24 09:28 Pantoprazole Sodium Iv 40 Mg Vial IV PUSH 40 mg QAM TONY Administration Thiamine HCl 100 mg 09/29/24 10:35 09/30/24 09:28 Thiamine Hcl 200 Mg/2 Ml Vial IV PUSH 100 mg QAM TONY Administration Radiology Results: ITS Impressions Abdomen X-Ray 09/29/24 06:38 IMPRESSION: 1: NG tube tip in the stomach. 2: Cardiomegaly with mild interstitial edema. Venous Doppler Study 09/29/24 13:13 IMPRESSION: 1: No lower extremity deep venous thrombosis. Chest X-Ray 09/30/24 06:37 Impression: [id number] left pleural effusion with probable mild bibasilar pulmonary edema/atelectasis. Probable underlying COPD or other chronic interstitial disease. Support tubes, as above. Labs Labs: Laboratory Results - last 24 hr 09/29/24 09/29/24 09/30/24 12:30 17:00 00:05 WBC RBC Hgb Hct MCV MCH MCHC RDW Plt Count MPV Immature Gran % (Auto) Neut % (Auto) Lymph % (Auto) [place] % (Auto) Eos % (Auto) Baso % (Auto) Lymph # (Auto) [place] # (Auto) Eos # (Auto) Baso # (Auto) Abs Immat Gran (auto) Absolute Neuts (auto) Absolute Nucleated RBC Nucleated RBC % Puncture Site ABG pH ABG pCO2 ABG pO2 ABG PO2/FiO2 Ratio ABG HCO3 ABG O2 Saturation ABG O2 Content ABG Base Excess A-a Gradient Oxyhemoglobin Carboxyhemoglobin Methemoglobin Reduced Hemoglobin Total Hemoglobin O2 Delivery Device O2 Liters/Min Minute Volume Vent Rate Vent Mode FiO2 Tidal Volume PEEP Peak Inspir Pressure Pressure Support Sodium Potassium Chloride Carbon Dioxide Anion Gap BUN Creatinine Estim Creat Clear Calc Estimated GFR Glucose POC Capillary Glucose 192 H 171 H 164 H Lactic Acid Calcium Phosphorus Magnesium Total Bilirubin AST ALT Alkaline Phosphatase Total Protein Albumin 09/30/24 09/30/24 09/30/24 03:27 05:12 05:38 WBC 12.1 H RBC 4.24 L Hgb 12.5 L Hct 39.4 L MCV 92.9 MCH 29.5 MCHC 31.7 L RDW 13.8 Plt Count 210 MPV 11.1 H Immature Gran % (Auto) 0.7 H Neut % (Auto) 91.3 H Lymph % (Auto) 5.8 L [place] % (Auto) 2.1 L Eos % (Auto) 0.0 Baso % (Auto) 0.1 L Lymph # (Auto) 0.70 L [place] # (Auto) 0.3 Eos # (Auto) 0.0 Baso # (Auto) 0.0 Abs Immat Gran (auto) 0.09 H Absolute Neuts (auto) 11.0 H Absolute Nucleated RBC 0.000 Nucleated RBC % 0.0 Puncture Site Left radial ABG pH 7.390 ABG pCO2 49.1 H ABG pO2 91.7 ABG PO2/FiO2 Ratio 1.67 ABG HCO3 29.1 H ABG O2 Saturation 96.9 ABG O2 Content 18.3 ABG Base Excess 3.2 A-a Gradient 245.8 Oxyhemoglobin 96.7 Carboxyhemoglobin 0.2 Methemoglobin 0.3 Reduced Hemoglobin 2.8 Total Hemoglobin 13.4 O2 Delivery Device Ventilator O2 Liters/Min Not Reportable Minute Volume Not Reportable Vent Rate 20 Vent Mode Cmv FiO2 55 Tidal Volume 520 PEEP 8 Peak Inspir Pressure Not Reportable Pressure Support Not Reportable Sodium 136 L Potassium 4.2 Chloride 100 Carbon Dioxide 29 Anion Gap 7 BUN 26 H Creatinine 0.76 Estim Creat Clear Calc 114 Estimated GFR > 60 Glucose 189 H POC Capillary Glucose 184 H Lactic Acid 2.2 H Calcium 9.0 Phosphorus 3.2 Magnesium 2.1 Total Bilirubin 0.3 AST 25 ALT 20 Alkaline Phosphatase 71 Total Protein 7.4 Albumin 3.7 09/30/24 06:08 WBC RBC Hgb Hct MCV MCH MCHC RDW Plt Count MPV Immature Gran % (Auto) Neut % (Auto) Lymph % (Auto) [place] % (Auto) Eos % (Auto) Baso % (Auto) Lymph # (Auto) [place] # (Auto) Eos # (Auto) Baso # (Auto) Abs Immat Gran (auto) Absolute Neuts (auto) Absolute Nucleated RBC Nucleated RBC % Puncture Site ABG pH ABG pCO2 ABG pO2 ABG PO2/FiO2 Ratio ABG HCO3 ABG O2 Saturation ABG O2 Content ABG Base Excess A-a Gradient Oxyhemoglobin Carboxyhemoglobin Methemoglobin Reduced Hemoglobin Total Hemoglobin O2 Delivery Device O2 Liters/Min Minute Volume Vent Rate Vent Mode FiO2 Tidal Volume PEEP Peak Inspir Pressure Pressure Support Sodium Potassium Chloride Carbon Dioxide Anion Gap BUN Creatinine Estim Creat Clear Calc Estimated GFR Glucose POC Capillary Glucose Lactic Acid 2.0 Calcium Phosphorus Magnesium Total Bilirubin AST ALT Alkaline Phosphatase Total Protein Albumin Quality VTE Prophylaxis VTE prophylaxis: pharmacologic ordered
[2024-09-30 12:22] LABS: Glucose Point of Care 181 mg/dl (65-105)
[2024-09-30] MEDS: FUROSEMIDE INJ 40 MG/4 ML VIAL 20 MG IV PUSH (13:35)
[2024-09-30 17:27] LABS: Glucose Point of Care 149 mg/dl (65-105)
[2024-09-30] MEDS: DOXEPIN HCL 25 MG CAPSULE PO (20:51)
[2024-09-30 23:29] LABS: Triglycerides 135 mg/dL (<150)
[2024-10-01] VITALS (34 sets, daily range): BP systolic 134–180; BP diastolic 66–97; PULSE 61–125; RESP 9–25; TEMP 36.6–37.2; O2SAT 90–97; BMI 38.2
[2024-10-01] MEDS: PROPOFOL IV EMULSION 100 ML 16.56 MG IV CONT (00:07)
[2024-10-01 00:14] LABS: Glucose Point of Care 153 mg/dl (65-105)
[2024-10-01] MEDS: MIDAZOLAM 100MG/NS 100ML(*CRX) 100 MG/100 ML BAG IV CONT (01:45)
[2024-10-01] MEDS: IPRATROPIUM 0.5 MG/ALBUTEROL SULFATE 2.5 MG AMPUL.NEB 3 ML INHALATION ×5 (02:28→20:58)
[2024-10-01 04:12] LABS: Basophils Percent Auto 0.1 % (0.2-1.2); Hematocrit 38.8 % (42.0-52.0); Hemoglobin 12.2 g/dL (14.0-18.0); Immature Granulocyte Absolute 0.08 K/mm3 (0.00-0.031); Immature Granulocyte Percent A 0.7 % (0-0.5); Lymphocytes Percent Auto 10.1 % (18.3-44.2); Mean Corpuscular HGB Conc 31.4 g/dl (32-36); Mean Corpuscular Hemoglobin 29.3 pg (26-34); Mean Corpuscular Volume 93.3 fl (80-100); Mean Platelet Volume 10.7 fl (7.4-10.4); Monocytes Absolute Auto 0.9 K/mm3 (0.1-0.6); Monocytes Percent Auto 7.6 % (2.6-8.5); Neutrophils Absolute Auto 9.6 K/mm3 (1.3-6.7); Neutrophils Percent Auto 81.5 % (45.5-73.1); Platelet Count Result 208 k/mm3 (150-375); Red Blood Count 4.16 M/mm3 (4.6-6.20); Red Cell Distribution Width 14.1 % (11.5-14.5); White Blood Count 11.8 K/mm3 (4.5-10.0)
[2024-10-01 05:02] LABS: Alanine Aminotransferase 13 U/L (6-50); Albumin Level 3.6 g/dL (3.5-5.1); Alkaline Phosphatase 58 U/L (38-126); Anion Gap 4 mmol/L (4-12); Aspartate Amino Transferase 19 U/L (17-59); Bilirubin,Total 0.2 mg/dL (0.2-1.3); Blood Urea Nitrogen 34 mg/dL (9-20); Carbon Dioxide 29 mmol/L (22-30); Chloride 103 mmol/L (98-107); Estimated CRCL calculation 115 ml/min; Estimated Glomerular Filt Rate > 60; Glucose 142 mg/dL (65-110); Magnesium 2.4 mg/dL (1.6-2.3); Phosphorus 3.3 mg/dL (2.5-4.5); Potassium 4.2 mmol/L (3.4-5.0); Sodium 136 mmol/L (137-145); Total Protein 7.1 g/dL (6.3-8.2)
[2024-10-01 05:21] LABS: Fractional Inspired Oxygen 40 %; HCO3 ABG 28.2 mEq/l (22.0-26.0); Methemoglobin ABG 0.2 %THb (0-1.5); Oxygen Content ABG 18.1 %vol (16.0-22.0); Oxygen Saturation ABG 96.7 % (95.0-100.0); Oxyhemoglobin 96.4 % THb (90.0-100.0); PCO2 ABG 45.4 mmHg (35.0-45.0); Reduced Hemoglobin 3.4 %THb (0-5.0); Total Hemoglobin 13.3 g/dL (12.0-18.0); pH ABG 7.411 (7.350-7.450)
[2024-10-01 05:23] LABS: Device VENTILATOR; Modified Allen's Test Pass; Site Drawn RIGHT RADIAL
[2024-10-01 05:24] LABS: Arterial Blood Gas PEEP 8 cmH2O; Arterial Blood Gas Tidal Volume 520 ml; Arterial Blood Gas Vent Mode CMV; Arterial Blood Gas Ventilator rate 20 /MIN
[2024-10-01] MEDS: PROPOFOL IV EMULSION 100 ML 8.28 MG IV CONT (05:47)
[2024-10-01] MEDS: METOPROLOL TARTRATE 12.5 MG TABLET 37.5 MG PO (08:23)
[2024-10-01] MEDS: PANTOPRAZOLE SODIUM IV 40 MG VIAL IV PUSH (08:23)
[2024-10-01] MEDS: ENOXAPARIN 40 MG/0.4 ML SYRINGE SUB-Q (08:23)
[2024-10-01] MEDS: THIAMINE HCL 200 MG/2 ML VIAL 100 MG IV PUSH (08:23)
[2024-10-01] MEDS: FOLIC ACID 1 MG/0.2 ML INJ IV PUSH (08:24)
[2024-10-01] MEDS: MINERAL OIL/WHITE PETROLATUM OINTMENT 1 APPLIC EACH EYE (08:24)
[2024-10-01] MEDS: cefTRIAXone 2 GM/NS 100 ML 2 GM/100 ML BAG IVPB (08:25)
[2024-10-01] MEDS: ASPIRIN 81 MG CHEWABLE TABLET PO (08:25)
[2024-10-01] MEDS: ATORVASTATIN 20 MG TABLET PO (08:25)
[2024-10-01] MEDS: dexmedeTOMIDine 400 MCG/100 ML 400 MCG/100 ML BAG 6.41 MCG IV CONT (08:40)
[2024-10-01 10:00] LABS: Alveolar/Arterial O2 Gradient 138.8 mmHg; Carboxyhemoglobin 0.1 % THb (0-2.0); Fractional Inspired Oxygen 40 %; HCO3 ABG 29.1 mEq/l (22.0-26.0); Methemoglobin ABG 0.3 %THb (0-1.5); Oxygen Content ABG 18.8 %vol (16.0-22.0); Oxygen Saturation ABG 97.3 % (95.0-100.0); PCO2 ABG 45.2 mmHg (35.0-45.0); PO2 ABG 94.4 mmHg (80.0-100.0); PO2 FiO2 Ratio Arterial Blood 2.36 %; Reduced Hemoglobin 2.6 %THb (0-5.0); Total Hemoglobin 13.7 g/dL (12.0-18.0); pH ABG 7.426 (7.350-7.450)
--- NOTE | 2024-10-01 10:45 | WPDINTPN ---
Progress Note: A&P Assessment and Plan (1) Acute on chronic respiratory failure with hypoxia and hypercapnia: Code(s): J96.21 - Acute and chronic respiratory failure with hypoxia; J96.22 - Acute and chronic respiratory failure with hypercapnia Status: Acute Assessment and Plan: 09/28/2024: Patient presented with respiratory distress, cyanosis. Likely did not have his oxygen on, the machine was turned off or he was out of oxygen at home, according to the daughter who told the hospitalist and ER physician. Family called 911, when the EMS arrived he was found to be cyanotic and was intubated on the field with ketamine E and etomidate. He was brought to the [facility] the ED with bag-mask ventilation. Initial ABG showed hypercapnic respiratory failure. Patient also has ongoing compliance issues with his medications and BiPAP use -currently on CMV mode of ventilation, peep of 5, 40% FiO2 -ABGs reviewed, ventilator adjusted, will increase PEEP to 8 -chest x-ray reviewed, will give Lasix -diffuse wheezing bilaterally, start Solu-Medrol -continue DuoNebs -maintain O2 sats greater than 90% -continue ceftriaxone (09/29) for possible COPD exacerbation -patient on 40% FiO2 this morning, awake, follows commands, will place patient on SBT after discontinuing sedation and evaluate for extubation (2) COPD exacerbation: Code(s): J44.1 - Chronic obstructive pulmonary disease with (acute) exacerbation Status: Acute Assessment and Plan: Possible COPD exacerbation given hypercapnic respiratory failure -treatment as above (3) Hypertension: Code(s): I10 - Essential (primary) hypertension Status: Acute Assessment and Plan: Blood pressures are stable, -continue metoprolol (4) Hyperlipidemia: Code(s): E78.5 - Hyperlipidemia, unspecified Status: Acute Assessment and Plan: Continue atorvastatin (5) Cardiac volume overload: Code(s): E87.79 - Other fluid overload Status: Acute Assessment and Plan: Will give 1 dose of Lasix since chest x-ray shows interstitial edema 01/29/2025: Venous Dopplers were negative for DVT 07/11/2024 Echocardiogram: Summary 1. Definity contrast administered improved wall motion interpretation. 2. Left ventricular chamber dimension is normal. 3. Left ventricular systolic function is normal, estimated at 60-65%. 4. There is mild concentric increased left ventricular wall thickness. 5. The left ventricular diastolic function is normal. 6. E/e' 8 is minimally elevated. 7. Left atrial chamber dimension is mildly enlarged. 8. Right atrial chamber dimension is mildly enlarged. 9. There is mild aortic valve sclerosis. 10. There is trace mitral valve regurgitation. 11. No pulmonary hypertension, estimated pulmonary arterial systolic pressure is 23 mmHg. 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 to be more compliant with his medications, oxygen, bronchodilators, BiPAP (7) Tobacco abuse disorder: Code(s): Z72.0 - Tobacco use Status: Acute Assessment and Plan: Will crisis counselor patient when he is extubated (8) Alcohol abuse: Code(s): F10.10 - Alcohol abuse, uncomplicated Status: Acute Assessment and Plan: Started patient on thiamine and folic acid -drinks 5-6 shots of fireball daily (9) Polysubstance abuse: Code(s): F19.10 - Other psychoactive substance abuse, uncomplicated Status: Acute Assessment and Plan: Urine drug screen was negative -patient is stopped using drugs since he is on Suboxone now Plan DVT prophylaxis: Lovenox Stress ulcer prophylaxis: Protonix Nutrition: Tolerating tube feeds Code Status: Full code Critical Care Time Spent: 32minutes 10/01: Discussed with daughter and updated with patient's condition and plan of care. She is aware that patient may be extubated today if he passes the breathing trial Due to a high probability of clinically significant, life threatening deterioration, the patient required my highest level of preparedness to intervene emergently and I personally spent this critical care time directly and personally managing the patient. This critical care time included obtaining a history; examining the patient; pulse oximetry; ordering and review of studies; arranging urgent treatment with development of a management plan; evaluation of patient's response to treatment; frequent reassessment; and discussions with other providers. It was exclusive of separately billable procedures and treating other patients and teaching time. Please see Assessment and Plan section and the rest of the note for further information on patient assessment and treatment This dictation may have been done utilizing a voice recognition system. Attempts have been made to correct errors. However, there may be uncorrected grammatical, spelling, and recognitions errors present. Subjective Date/time seen: 10/01/24 10:45 Interval history: Reason for consult: Acute respiratory failure, COPD exacerbation, possible CHF exacerbation, noncompliance 10/01/2024: Patient seen and examined the ICU, remains intubated on CMV mode of ventilation, peep of 8, 40% FiO2. Patient is sedated with propofol and Versed infusion, opens his eyes, follows simple commands nods to questions. Urine output has been good in response to diuresis, hemodynamically stable and afebrile. Increased secretion Review of Systems Review of Systems: ROS unobtainable: Yes unobtainable due to endotracheal tube, unobtainable due to medical condition and unobtainable due to mental status Exam Narrative: General: Intubated, sedated in no acute distress HEENT:? Pupils are equal, reactive, sclera ischemia, ETT in place Neck:? Supple Respiratory:? Coarse breath sounds bilaterally, otherwise adequate air entry, no wheezing this morning Cardiac:? S1-S2 normal, regular rate and rhythm Abdomen:? Soft, nontender, protuberant, hypoactive bowel sounds Extremities:? pitting edema bilateral lower extremities, palpable pedal pulses Neuro:? Intubated, sedated, does not open his eyes or follow simple commands Skin:? Chronic bilateral lower extremity venous stasis changes Psych:? Unable to assess at this time Objective Data Vital Signs Vital Signs: Vital Signs - 24 hr 09/30/24 10:46 09/30/24 12:00 09/30/24 12:00 Temperature Pulse Rate 81 89 Respiratory Rate Blood Pressure Pulse Oximetry 92 92 Oxygen Delivery Mechanical Ventilation Mechanical Ventilation Fraction of Inspired Oxygen 50 45 09/30/24 12:00 09/30/24 12:00 09/30/24 12:00 Temperature Pulse Rate 63 64 Respiratory Rate 20 20 Blood Pressure 123/66 Pulse Oximetry 94 Oxygen Delivery Fraction of Inspired Oxygen 45 09/30/24 12:00 09/30/24 13:38 09/30/24 14:00 Temperature 98.5 F Pulse Rate 64 67 Respiratory Rate 20 Blood Pressure Pulse Oximetry Oxygen Delivery Fraction of Inspired Oxygen 09/30/24 14:00 09/30/24 14:00 09/30/24 14:00 Temperature 98.3 F Pulse Rate 66 66 65 Respiratory Rate 20 20 20 Blood Pressure 130/59 L Pulse Oximetry 93 Oxygen Delivery Fraction of Inspired Oxygen 09/30/24 14:52 09/30/24 14:56 09/30/24 15:59 Temperature Pulse Rate 67 67 91 Respiratory Rate 20 24 H Blood Pressure Pulse Oximetry 93 Oxygen Delivery Mechanical Ventilation Fraction of Inspired Oxygen 45 09/30/24 15:59 09/30/24 16:00 09/30/24 16:00 Temperature Pulse Rate 91 Respiratory Rate 24 H Blood Pressure Pulse Oximetry 93 Oxygen Delivery Mechanical Ventilation Fraction of Inspired Oxygen 45 45 09/30/24 16:00 09/30/24 16:00 09/30/24 16:00 Temperature 98.3 F Pulse Rate 87 69 90 Respiratory Rate 20 20 Blood Pressure 132/63 Pulse Oximetry 92 Oxygen Delivery Fraction of Inspired Oxygen 09/30/24 17:00 09/30/24 17:10 09/30/24 18:00 Temperature Pulse Rate 77 67 64 Respiratory Rate 20 Blood Pressure Pulse Oximetry 92 Oxygen Delivery Mechanical Ventilation Fraction of Inspired Oxygen 45 09/30/24 18:00 09/30/24 18:00 09/30/24 18:00 Temperature 98.3 F Pulse Rate 66 65 64 Respiratory Rate 20 20 20 Blood Pressure 123/65 Pulse Oximetry 93 Oxygen Delivery Fraction of Inspired Oxygen 09/30/24 20:00 09/30/24 20:00 09/30/24 20:00 Temperature Pulse Rate 84 84 Respiratory Rate 20 20 Blood Pressure Pulse Oximetry 94 Oxygen Delivery Mechanical Ventilation Fraction of Inspired Oxygen 40 09/30/24 20:00 09/30/24 20:00 09/30/24 20:00 Temperature 98.3 F Pulse Rate 65 65 Respiratory Rate 20 Blood Pressure 130/65 Pulse Oximetry 94 Oxygen Delivery Fraction of Inspired Oxygen 40 09/30/24 20:15 09/30/24 20:16 09/30/24 20:16 Temperature Pulse Rate 100 64 64 Respiratory Rate 22 H 20 Blood Pressure Pulse Oximetry 94 Oxygen Delivery Mechanical Ventilation Fraction of Inspired Oxygen 40 09/30/24 20:30 09/30/24 22:00 09/30/24 22:00 Temperature 98.4 F Pulse Rate 64 79 82 Respiratory Rate 20 20 Blood Pressure 125/65 Pulse Oximetry 92 Oxygen Delivery Fraction of Inspired Oxygen 09/30/24 22:00 09/30/24 22:00 09/30/24 23:02 Temperature Pulse Rate 82 82 65 Respiratory Rate 20 20 Blood Pressure Pulse Oximetry 93 Oxygen Delivery Mechanical Ventilation Fraction of Inspired Oxygen 40 10/01/24 00:00 10/01/24 00:00 10/01/24 00:00 Temperature Pulse Rate 64 Respiratory Rate 20 Blood Pressure Pulse Oximetry 96 Oxygen Delivery Mechanical Ventilation Fraction of Inspired Oxygen 40 40 10/01/24 00:00 10/01/24 00:00 10/01/24 00:00 Temperature 97.9 F Pulse Rate 65 65 64 Respiratory Rate 20 20 Blood Pressure 151/74 H Pulse Oximetry 96 Oxygen Delivery Fraction of Inspired Oxygen 10/01/24 00:07 10/01/24 00:07 10/01/24 01:45 Temperature Pulse Rate 62 62 65 Respiratory Rate 20 20 20 Blood Pressure Pulse Oximetry Oxygen Delivery Fraction of Inspired Oxygen 10/01/24 01:45 10/01/24 02:00 10/01/24 02:00 Temperature 98.2 F Pulse Rate 65 63 61 Respiratory Rate 20 20 Blood Pressure 134/66 Pulse Oximetry 92 Oxygen Delivery Fraction of Inspired Oxygen 10/01/24 02:00 10/01/24 02:00 10/01/24 02:28 Temperature Pulse Rate 61 61 63 Respiratory Rate 20 20 20 Blood Pressure Pulse Oximetry Oxygen Delivery Fraction of Inspired Oxygen 10/01/24 02:48 10/01/24 02:50 10/01/24 04:00 Temperature Pulse Rate 63 63 Respiratory Rate 20 Blood Pressure Pulse Oximetry 92 92 Oxygen Delivery Mechanical Ventilation Mechanical Ventilation Fraction of Inspired Oxygen 40 40 10/01/24 04:00 10/01/24 04:00 10/01/24 04:00 Temperature 98.1 F Pulse Rate 74 70 Respiratory Rate 20 Blood Pressure 135/67 Pulse Oximetry 92 Oxygen Delivery Fraction of Inspired Oxygen 40 10/01/24 04:00 10/01/24 04:00 10/01/24 05:08 Temperature Pulse Rate 74 74 72 Respiratory Rate 20 20 Blood Pressure Pulse Oximetry 93 Oxygen Delivery Mechanical Ventilation Fraction of Inspired Oxygen 40 10/01/24 05:47 10/01/24 05:47 10/01/24 06:00 Temperature Pulse Rate 70 70 70 Respiratory Rate 20 20 Blood Pressure Pulse Oximetry Oxygen Delivery Fraction of Inspired Oxygen 10/01/24 06:00 10/01/24 06:00 10/01/24 06:00 Temperature 98.2 F Pulse Rate 66 66 66 Respiratory Rate 20 20 20 Blood Pressure 146/70 H Pulse Oximetry 93 Oxygen Delivery Fraction of Inspired Oxygen 10/01/24 08:00 10/01/24 08:00 10/01/24 08:00 Temperature 98.3 F Pulse Rate 68 104 H Respiratory Rate 20 16 Blood Pressure 171/81 H Pulse Oximetry 94 95 Oxygen Delivery Mechanical Ventilation Fraction of Inspired Oxygen 40 40 10/01/24 08:15 10/01/24 08:25 10/01/24 08:25 Temperature Pulse Rate 110 H 108 H 105 H Respiratory Rate 21 H 20 Blood Pressure Pulse Oximetry 95 Oxygen Delivery Mechanical Ventilation Fraction of Inspired Oxygen 40 10/01/24 08:28 10/01/24 08:40 10/01/24 08:40 Temperature Pulse Rate 125 H 103 H 105 H Respiratory Rate 25 H 16 15 Blood Pressure Pulse Oximetry Oxygen Delivery Fraction of Inspired Oxygen 10/01/24 09:09 10/01/24 09:10 10/01/24 10:00 Temperature 98.7 F Pulse Rate 108 H 104 H 86 Respiratory Rate 17 16 14 Blood Pressure 161/87 H Pulse Oximetry 94 Oxygen Delivery Fraction of Inspired Oxygen Intake/Output Intake/Output: Intake & Output 09/28/24 09/29/24 09/30/24 10/01/24 23:59 23:59 23:59 23:59 Intake Total 606.2 1831.1 1069.5 Output Total 1650 1725 875 Balance -1043.8 106.1 194.5 Meds/Results Medications: Active Medications Generic Name Dose Route Start Last Admin Trade Name Freq PRN Reason Stop Dose Admin Albuterol/Ipratropium 3 ml 09/29/24 08:00 10/01/24 08:23 Ipratropium 0.5 Mg/Albuterol Sulfate 2.5 Mg Ampul.Neb 3 Ml INHALATION 3 ml Q6HRT TONY Administration Aspirin 81 mg 09/29/24 08:45 10/01/24 08:25 Aspirin 81 Mg Chewable Tablet PO 81 mg DAILY@0800 TONY Administration Atorvastatin Calcium 20 mg 09/29/24 09:00 10/01/24 08:25 Atorvastatin 20 Mg Tablet PO 20 mg DAILY TONY Administration Dextrose 12.5 gm 09/29/24 10:29 Dextrose 50% 25 Gm/50 Ml Syringe IV PUSH PRN PRN Hypoglycemia Protocol Doxepin HCl 25 mg 09/29/24 21:00 09/30/24 20:51 Doxepin Hcl 25 Mg Capsule PO 25 mg HS TONY Administration Enoxaparin Sodium 40 mg 09/29/24 09:00 10/01/24 08:23 Enoxaparin 40 Mg/0.4 Ml Syringe SUB-Q 40 mg DAILY TONY Administration Folic Acid 1 mg 09/30/24 09:00 10/01/24 08:24 Folic Acid 1 Mg/0.2 Ml Inj IV PUSH 1 mg QAM TONY Administration Glucagon 1 mg 09/29/24 10:29 Glucagon For Inj 1 Mg Vial IM PRN PRN Hypoglycemia Protocol Glucose 15 gm 09/29/24 10:29 Glucose Oral Gel 15 Gm Of Glucse In 37.5 Gm Tube PO PRN PRN Hypoglycemia Protocol Propofol 100 mls @ 8.28 mls/hr 09/29/24 02:55 10/01/24 09:09 Diprivan IV CONT 10 mcg/kg/min .Q12H5M TONY 8.28 mls/hr Titration Protocol 10 MCG/KG/MIN Ceftriaxone Sodium 2 gm in 100 mls @ 200 mls/hr 09/29/24 09:00 10/01/24 08:25 Rocephin 2 Gm/Ns 100 Ml IVPB 10/04/24 08:59 200 mls/hr Q24H TONY Administration Dextrose 1,000 mls @ 100 mls/hr 09/29/24 10:29 Dextrose 5% 1,000 Ml IVPB PRN PRN Hypoglycemia Protocol Midazolam HCl 100 mg in 100 mls @ 3 mls/hr 09/29/24 16:55 10/01/24 06:00 Versed 100 Mg/Ns 100 Ml IV CONT 3 mg/hr .[id number] TONY 3 mls/hr Titration Protocol 3 MG/HR Dexmedetomidine HCl 400 mcg in 100 mls @ 12.81 mls/hr 10/01/24 08:30 10/01/24 09:10 Precedex 400 Mcg/100 Ml IV CONT 0.4 mcg/kg/hr .Q7H49M TONY 12.81 mls/hr Titration Protocol 0.4 MCG/KG/HR Insulin Aspart 3 - 6 units 09/29/24 12:00 10/01/24 05:28 Insulin Aspart (*Bkc) 100 Units/Ml SUB-Q Not Given Q6HR TONY Protocol Metoprolol Tartrate 37.5 mg 09/29/24 09:00 10/01/24 08:23 Metoprolol Tartrate 12.5 Mg Tablet PO 37.5 mg DAILY TONY Administration Multi-Ingred Cream/Lotion/Oil/Oint 1 applic 09/29/24 21:00 10/01/24 08:24 Mineral Oil/White Petrolatum Ointment EACH EYE 1 applic Q12HR TONY Administration Pantoprazole Sodium 40 mg 09/30/24 09:00 10/01/24 08:23 Pantoprazole Sodium Iv 40 Mg Vial IV PUSH 40 mg QAM TONY Administration Thiamine HCl 100 mg 09/29/24 10:35 10/01/24 08:23 Thiamine Hcl 200 Mg/2 Ml Vial IV PUSH 100 mg QAM TONY Administration Radiology Results: ITS Impressions Abdomen X-Ray 09/29/24 06:38 IMPRESSION: 1: NG tube tip in the stomach. 2: Cardiomegaly with mild interstitial edema. Venous Doppler Study 09/29/24 13:13 IMPRESSION: 1: No lower extremity deep venous thrombosis. Chest X-Ray 10/01/24 05:57 Impression: [id number] left pleural effusion with possible mild superimposed pulmonary edema. Underlying COPD and/or chronic interstitial disease. Support tubes, as above. Labs Labs: Laboratory Results - last 24 hr 09/30/24 09/30/24 09/30/24 11:48 17:16 23:10 WBC RBC Hgb Hct MCV MCH MCHC RDW Plt Count MPV Immature Gran % (Auto) Neut % (Auto) Lymph % (Auto) [place] % (Auto) Eos % (Auto) Baso % (Auto) Lymph # (Auto) [place] # (Auto) Eos # (Auto) Baso # (Auto) Abs Immat Gran (auto) Absolute Neuts (auto) Absolute Nucleated RBC Nucleated RBC % Puncture Site ABG pH ABG pCO2 ABG pO2 ABG PO2/FiO2 Ratio ABG HCO3 ABG O2 Saturation ABG O2 Content ABG Base Excess A-a Gradient Oxyhemoglobin Carboxyhemoglobin Methemoglobin Reduced Hemoglobin Total Hemoglobin O2 Delivery Device O2 Liters/Min Minute Volume Vent Rate Vent Mode FiO2 Tidal Volume PEEP Peak Inspir Pressure Pressure Support Sodium Potassium Chloride Carbon Dioxide Anion Gap BUN Creatinine Estim Creat Clear Calc Estimated GFR Glucose POC Capillary Glucose 181 H 149 H Calcium Phosphorus Magnesium Total Bilirubin AST ALT Alkaline Phosphatase Total Protein Albumin Triglycerides 135 10/01/24 10/01/24 10/01/24 00:02 04:04 05:07 WBC 11.8 H RBC 4.16 L Hgb 12.2 L Hct 38.8 L MCV 93.3 MCH 29.3 MCHC 31.4 L RDW 14.1 Plt Count 208 MPV 10.7 H Immature Gran % (Auto) 0.7 H Neut % (Auto) 81.5 H Lymph % (Auto) 10.1 L [place] % (Auto) 7.6 Eos % (Auto) 0.0 Baso % (Auto) 0.1 L Lymph # (Auto) 1.20 [place] # (Auto) 0.9 H Eos # (Auto) 0.0 Baso # (Auto) 0.0 Abs Immat Gran (auto) 0.08 H Absolute Neuts (auto) 9.6 H Absolute Nucleated RBC 0.000 Nucleated RBC % 0.0 Puncture Site Right radial ABG pH 7.411 ABG pCO2 45.4 H ABG pO2 88.0 ABG PO2/FiO2 Ratio 2.20 ABG HCO3 28.2 H ABG O2 Saturation 96.7 ABG O2 Content 18.1 ABG Base Excess 3.0 A-a Gradient 145.0 Oxyhemoglobin 96.4 Carboxyhemoglobin 0.0 Methemoglobin 0.2 Reduced Hemoglobin 3.4 Total Hemoglobin 13.3 O2 Delivery Device Ventilator O2 Liters/Min Not Reportable Minute Volume Not Reportable Vent Rate 20 Vent Mode Cmv FiO2 40 Tidal Volume 520 PEEP 8 Peak Inspir Pressure Not Reportable Pressure Support Not Reportable Sodium 136 L Potassium 4.2 Chloride 103 Carbon Dioxide 29 Anion Gap 4 BUN 34 H Creatinine 0.76 Estim Creat Clear Calc 115 Estimated GFR > 60 Glucose 142 H POC Capillary Glucose 153 H Calcium 9.0 Phosphorus 3.3 Magnesium 2.4 H Total Bilirubin 0.2 AST 19 ALT 13 Alkaline Phosphatase 58 Total Protein 7.1 Albumin 3.6 Triglycerides Quality VTE Prophylaxis VTE prophylaxis: pharmacologic ordered
[2024-10-01 11:31] LABS: Device VENTILATOR; Modified Allen's Test Pass; Site Drawn RIGHT RADIAL
[2024-10-01 11:32] LABS: Arterial Blood Gas PEEP 5 cmH2O; Arterial Blood Gas Pressure Support 8 cmH2O; Arterial Blood Gas Vent Mode SPONTANEOUS
[2024-10-01 11:37] LABS: Glucose Point of Care 97 mg/dl (65-105)
--- NOTE | 2024-10-01 13:17 | PM.CNPUL ---
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 (Auto) Abs Immat Gran (auto) Absolute Neuts (auto) ABG pH ABG pCO2 45.4 H 45.2 H ABG pO2 ABG HCO3 28.2 H 29.1 H ABG O2 Saturation Reduced Hemoglobin Sodium BUN Creatinine Glucose POC Capillary Glucose Lactic Acid Magnesium Triglycerides Urine Protein Diagnostic Findings Additional studies: ITS Impressions Abdomen X-Ray 09/29/24 06:38 IMPRESSION: 1: NG tube tip in the stomach. 2: Cardiomegaly with mild interstitial edema. Chest X-Ray 09/29/24 06:48 Impression: 1: Cardiomegaly with interstitial edema. Venous Doppler Study 09/29/24 13:13 IMPRESSION: 1: No lower extremity deep venous thrombosis. Chest X-Ray 09/30/24 06:37 Impression: [id number] left pleural effusion with probable mild bibasilar pulmonary edema/atelectasis. Probable underlying COPD or other chronic interstitial disease. Support tubes, as above. Chest X-Ray 10/01/24 05:57 Impression: [id number] left pleural effusion with possible mild superimposed pulmonary edema. Underlying COPD and/or chronic interstitial disease. Support tubes, as above.
[2024-10-01] MEDS: BUDESONIDE RESPULE NEB 0.5 MG/2 ML AMP INHALATION (13:36)
--- NOTE | 2024-10-01 14:55 | PCSTNOTE ---
Please refer to the Bedside Swallow Evaluation in the EMR. Please note, silent aspiration cannot be ruled out at bedside. This is a 64-year-old male with chronic respiratory failure on 4 l home oxygen, untreated sleep apnea, chronic obstructive pulmonary disease, congestive heart failure, hypertension, hyperlipidemia, hepatitis-C, depression, anxiety, bipolar disorder, alcohol abuse, and polysubstance abuse who presented to the emergency department via EMS from home after family members called 911 as the patient was in respiratory distress. Pt was intubated x 2-3 days; extubated this am. Pt was positioned upright in the bed. He was attempting to sit at the bedside, cursing and yelling due to wanting the side rail taken down. Pt stated he wanted to leave AMA however, he participated in oral trials. He was tested with 5 ml thin liquids which quickly revealed coughing/overt s/s of aspiration. Further trials of pudding and varying size bites of cracker appeared to be WFL for the oral and pharyngeal stages. He was then tested with cup sips and straw drinks of mildly thick liquids which revealed overt s/s of aspiration only after the straw drinking. He was then given cup sips of moderately thick liquids which were without any overt s/s of aspiration. Impressions & recommendations: MBS could not be completed on this date due to xray staffing. It is recommended that the pt have a level 6 diet with level 3 moderately thick liquids with 1:1 supervision. If difficulty is exhibited, make NPO. ST will see pt again in the am of 10/02 to determine the need for an MBS. S/p 24 hours from extubation may improve swallow ability.
[2024-10-01 19:10] LABS: Glucose Point of Care 129 mg/dl (65-105)
[2024-10-01] MEDS: NICOTINE (*PBKC) 14 MG PATCH 1 PATCH TRANSDERM (20:08)
[2024-10-01] MEDS: BUPRENORPHINE HCL (*CRX) 2 MG SUBLINGUAL TABLET 4 MG SUBLINGUAL (20:11)
[2024-10-01] MEDS: DOXEPIN HCL 25 MG CAPSULE PO (20:11)
[2024-10-01] MEDS: BUPRENORPHINE HCL (*CRX) 8 MG SUBLINGUAL TABLET SUBLINGUAL (20:11)
[2024-10-01 20:13] LABS: Influenza A QL RT-PCR Negative (Negative); Influenza B QL RT-PCR Negative (Negative); RSV RNA, RT-PCR Negative (Negative); SARS-CoV-2 RNA PCR Negative (Negative)
[2024-10-02] VITALS (18 sets, daily range): BP systolic 130–170; BP diastolic 70–99; PULSE 70–106; RESP 10–21; TEMP 36.5–37.1; O2SAT 91–97
[2024-10-02 00:22] LABS: Glucose Point of Care 91 mg/dl (65-105)
[2024-10-02] MEDS: IPRATROPIUM 0.5 MG/ALBUTEROL SULFATE 2.5 MG AMPUL.NEB 3 ML INHALATION ×2 (03:28→15:36)
[2024-10-02] MEDS: BUPRENORPHINE HCL (*CRX) 8 MG SUBLINGUAL TABLET SUBLINGUAL ×3 (05:58→21:07)
[2024-10-02] MEDS: BUPRENORPHINE HCL (*CRX) 2 MG SUBLINGUAL TABLET 4 MG SUBLINGUAL ×3 (05:58→21:07)
[2024-10-02 06:03] LABS: Glucose Point of Care 103 mg/dl (65-105)
[2024-10-02 06:20] LABS: Basophils Percent Auto 0.3 % (0.2-1.2); Eosinophils Absolute Auto 0.3 K/mm3 (0-0.3); Eosinophils Percent Auto 2.8 % (0-4.4); Hematocrit 39.4 % (42.0-52.0); Hemoglobin 12.4 g/dL (14.0-18.0); Immature Granulocyte Absolute 0.06 K/mm3 (0.00-0.031); Immature Granulocyte Percent A 0.5 % (0-0.5); Lymphocytes Absolute Auto 3.13 K/mm3 (0.9-3.2); Lymphocytes Percent Auto 26.8 % (18.3-44.2); Mean Corpuscular HGB Conc 31.5 g/dl (32-36); Mean Corpuscular Hemoglobin 29.7 pg (26-34); Mean Corpuscular Volume 94.3 fl (80-100); Mean Platelet Volume 10.5 fl (7.4-10.4); Monocytes Absolute Auto 0.9 K/mm3 (0.1-0.6); Monocytes Percent Auto 7.7 % (2.6-8.5); Neutrophils Absolute Auto 7.3 K/mm3 (1.3-6.7); Neutrophils Percent Auto 61.9 % (45.5-73.1); Platelet Count Result 221 k/mm3 (150-375); Red Blood Count 4.18 M/mm3 (4.6-6.20); Red Cell Distribution Width 14.1 % (11.5-14.5); White Blood Count 11.7 K/mm3 (4.5-10.0)
[2024-10-02 06:32] LABS: Alanine Aminotransferase 12 U/L (6-50); Albumin Level 3.6 g/dL (3.5-5.1); Alkaline Phosphatase 63 U/L (38-126); Anion Gap 6 mmol/L (4-12); Aspartate Amino Transferase 19 U/L (17-59); Bilirubin,Total 0.4 mg/dL (0.2-1.3); Blood Urea Nitrogen 30 mg/dL (9-20); Calcium 8.7 mg/dL (8.4-10.2); Carbon Dioxide 30 mmol/L (22-30); Chloride 102 mmol/L (98-107); Estimated CRCL calculation 110 ml/min; Estimated Glomerular Filt Rate > 60; Glucose 109 mg/dL (65-110); Magnesium 2.2 mg/dL (1.6-2.3); Phosphorus 3.9 mg/dL (2.5-4.5); Potassium 4.2 mmol/L (3.4-5.0); Sodium 138 mmol/L (137-145); Total Protein 7.2 g/dL (6.3-8.2)
[2024-10-02 06:42] LABS: NT Pro B Type Natriuretic Pept 477 pg/mL (19.9-100)
[2024-10-02 06:47] LABS: Base Excess ABG 4.4 mEq/l (+/-2.0); Fractional Inspired Oxygen 36 %; HCO3 ABG 30.8 mEq/l (22.0-26.0); Oxygen Content ABG 17.5 %vol (16.0-22.0); Oxygen Saturation ABG 91.2 % (95.0-100.0); Oxyhemoglobin 91.6 % THb (90.0-100.0); PCO2 ABG 53.4 mmHg (35.0-45.0); PO2 ABG 62.7 mmHg (80.0-100.0); PO2 FiO2 Ratio Arterial Blood 1.74 %; Total Hemoglobin 13.6 g/dL (12.0-18.0); pH ABG 7.379 (7.350-7.450)
[2024-10-02 06:48] LABS: Site Drawn LEFT RADIAL
[2024-10-02 06:49] LABS: Device BIPAP; Expiratory Pressure 7 cmH2O; Inspiratory Pressure 14 cmH2O; Modified Allen's Test Pass
[2024-10-02 07:11] LABS: Procalcitonin 0.1 ng/mL
[2024-10-02] MEDS: cefTRIAXone 2 GM/NS 100 ML 2 GM/100 ML BAG IVPB (08:30)
[2024-10-02] MEDS: BUDESONIDE RESPULE NEB 0.5 MG/2 ML AMP INHALATION ×2 (08:30→20:21)
[2024-10-02] MEDS: ASPIRIN 81 MG CHEWABLE TABLET PO (08:30)
[2024-10-02] MEDS: ATORVASTATIN 20 MG TABLET PO (08:30)
[2024-10-02] MEDS: FOLIC ACID 1 MG TABLET PO (08:30)
[2024-10-02] MEDS: THIAMINE HCL 100 MG TABLET PO (08:30)
[2024-10-02] MEDS: FUROSEMIDE 40 MG TABLET PO (08:30)
[2024-10-02] MEDS: METOPROLOL TARTRATE 12.5 MG TABLET 37.5 MG PO (08:30)
[2024-10-02] MEDS: PANTOPRAZOLE SODIUM IV 40 MG VIAL IV PUSH (08:30)
[2024-10-02] MEDS: NICOTINE (*PBKC) 14 MG PATCH 1 PATCH TRANSDERM (08:31)
[2024-10-02] MEDS: ENOXAPARIN 40 MG/0.4 ML SYRINGE SUB-Q (08:31)
--- NOTE | 2024-10-02 08:41 | P.PNINT_ITS ---
Progress Note: A&P Assessment and Plan (1) Acute on chronic respiratory failure with hypoxia and hypercapnia: Code(s): J96.21 - Acute and chronic respiratory failure with hypoxia; J96.22 - Acute and chronic respiratory failure with hypercapnia Status: Acute Assessment and Plan: 09/28/2024: Patient presented with respiratory distress, cyanosis. Likely did not have his oxygen on, the machine was turned off or he was out of oxygen at home, according to the daughter who told the hospitalist and ER physician. Family called 911, when the EMS arrived he was found to be cyanotic and was intubated on the field with ketamine E and etomidate. He was brought to the [place] the ED with bag-mask ventilation. Initial ABG showed hypercapnic respiratory failure. Patient also has ongoing compliance issues with his medications and BiPAP use 10/01 extubated Continue supplemental oxygen, BiPAP at night and p.r.n. Continue inhaled steroids and bronchodilators -continue ceftriaxone (09/29) for possible COPD exacerbation Incentive spirometry (2) COPD exacerbation: Code(s): J44.1 - Chronic obstructive pulmonary disease with (acute) exacerbation Status: Acute Assessment and Plan: Possible COPD exacerbation given hypercapnic respiratory failure -treatment as above (3) Hypertension: Code(s): I10 - Essential (primary) hypertension Status: Acute Assessment and Plan: Blood pressures are stable, -continue metoprolol (4) Hyperlipidemia: Code(s): E78.5 - Hyperlipidemia, unspecified Status: Acute Assessment and Plan: Continue atorvastatin (5) Cardiac volume overload: Code(s): E87.79 - Other fluid overload Status: Acute Assessment and Plan: Continue p.o. Lasix 01/29/2025: Venous Dopplers were negative for DVT 07/11/2024 Echocardiogram: Summary 1. Definity contrast administered improved wall motion interpretation. 2. Left ventricular chamber dimension is normal. 3. Left ventricular systolic function is normal, estimated at 60-65%. 4. There is mild concentric increased left ventricular wall thickness. 5. The left ventricular diastolic function is normal. 6. E/e' 8 is minimally elevated. 7. Left atrial chamber dimension is mildly enlarged. 8. Right atrial chamber dimension is mildly enlarged. 9. There is mild aortic valve sclerosis. 10. There is trace mitral valve regurgitation. 11. No pulmonary hypertension, estimated pulmonary arterial systolic pressure is 23 mmHg. (6) Noncompliance: Code(s): Z91.199 - Patient's noncompliance with other medical treatment and regimen due to unspecified reason Status: Acute Assessment and Plan: Patient was counseled to to be more compliant with his medications, oxygen, bronchodilators, BiPAP (7) Tobacco abuse disorder: Code(s): Z72.0 - Tobacco use Status: Acute Assessment and Plan: Patient was counseled and encouraged to quit smoking (8) Alcohol abuse: Code(s): F10.10 - Alcohol abuse, uncomplicated Status: Acute Assessment and Plan: Started patient on thiamine and folic acid -drinks 5-6 shots of fireball daily (9) Polysubstance abuse: Code(s): F19.10 - Other psychoactive substance abuse, uncomplicated Status: Acute Assessment and Plan: Urine drug screen was negative -patient is stopped using drugs since he is on Suboxone now Plan DVT prophylaxis: Lovenox Stress ulcer prophylaxis: Protonix Nutrition: Diet ordered Code Status: Full code Incentive spirometry, PT OT Transfer out of ICU today Subjective Date/time seen: 10/02/24 Overnight events reviewed. Afebrile He was extubated yesterday and is on nasal cannula this morning. He wore BiPAP overnight. He denies any new complaints and states his breathing is getting better. He does feel weak and tired. Cough present. All other systems were reviewed and were negative Good urine output Tolerating p.o. diet Vitals acceptable Interval history: Reason for consult: Acute respiratory failure, COPD exacerbation, possible CHF exacerbation, noncompliance 10/01/2024: Patient seen and examined the ICU, remains intubated on CMV mode of ventilation, peep of 8, 40% FiO2. Patient is sedated with propofol and Versed infusion, opens his eyes, follows simple commands nods to questions. Urine output has been good in response to diuresis, hemodynamically stable and afebrile. Increased secretion Review of Systems Review of Systems: All systems reviewed & are unremarkable except as noted in HPI and below (HPI) Exam Narrative: General: Alert awake and in no acute distress HEENT:? Pupils are equal, reactive, sclera ischemia, Neck:? Supple Respiratory:? Coarse breath sounds bilaterally, Cardiac:? S1-S2 normal, regular rate and rhythm Abdomen:? Soft, nontender, protuberant, hypoactive bowel sounds Extremities:? pitting edema bilateral lower extremities, palpable pedal pulses Neuro:? AO x3, follows commands with all 4 extremities Skin:? Chronic bilateral lower extremity venous stasis changes Psych:? Normal speech and affect Objective Data Vital Signs Vital Signs: Vital Signs - 24 hr 10/01/24 09:09 10/01/24 09:10 10/01/24 09:20 Temperature Pulse Rate 108 H 104 H 100 Respiratory Rate 17 16 12 Blood Pressure Pulse Oximetry Oxygen Delivery Oxygen Flow Rate Fraction of Inspired Oxygen 10/01/24 10:00 10/01/24 10:00 10/01/24 10:00 Temperature 37.1 C Pulse Rate 86 110 H 100 Respiratory Rate 14 12 Blood Pressure 161/87 H Pulse Oximetry 94 Oxygen Delivery Oxygen Flow Rate Fraction of Inspired Oxygen 10/01/24 11:30 10/01/24 11:51 10/01/24 12:00 Temperature Pulse Rate 77 86 Respiratory Rate 14 14 Blood Pressure Pulse Oximetry 96 96 Oxygen Delivery Nasal Cannula Nasal Cannula Oxygen Flow Rate 4 5 Fraction of Inspired Oxygen 40 10/01/24 12:00 10/01/24 12:00 10/01/24 13:36 Temperature 37.2 C Pulse Rate 75 72 77 Respiratory Rate 10 L 14 Blood Pressure 150/78 H Pulse Oximetry 90 Oxygen Delivery Oxygen Flow Rate Fraction of Inspired Oxygen 10/01/24 13:50 10/01/24 13:53 10/01/24 14:00 Temperature 36.9 C Pulse Rate 75 75 83 Respiratory Rate 14 14 19 Blood Pressure 153/86 H Pulse Oximetry 93 92 Oxygen Delivery Nasal Cannula Oxygen Flow Rate 5 Fraction of Inspired Oxygen 10/01/24 14:00 10/01/24 15:00 10/01/24 15:13 Temperature Pulse Rate 80 Respiratory Rate Blood Pressure Pulse Oximetry Oxygen Delivery Nasal Cannula Nasal Cannula Oxygen Flow Rate 5 5 Fraction of Inspired Oxygen 10/01/24 16:00 10/01/24 16:00 10/01/24 16:00 Temperature 36.8 C Pulse Rate 81 86 84 Respiratory Rate 13 14 Blood Pressure 180/97 H Pulse Oximetry 95 96 Oxygen Delivery Nasal Cannula Oxygen Flow Rate 5 Fraction of Inspired Oxygen 40 10/01/24 18:00 10/01/24 18:00 10/01/24 20:00 Temperature 36.8 C Pulse Rate 81 80 88 Respiratory Rate 14 18 Blood Pressure 169/92 H Pulse Oximetry 97 95 Oxygen Delivery Nasal Cannula Oxygen Flow Rate 5 Fraction of Inspired Oxygen 10/01/24 20:00 10/01/24 20:00 10/01/24 20:58 Temperature 36.7 C Pulse Rate 72 88 86 Respiratory Rate 18 16 Blood Pressure 146/86 H Pulse Oximetry 95 Oxygen Delivery Oxygen Flow Rate Fraction of Inspired Oxygen 10/01/24 21:03 10/01/24 22:00 10/01/24 22:00 Temperature 36.8 C Pulse Rate 86 79 79 Respiratory Rate 16 9 L Blood Pressure 148/83 H Pulse Oximetry 97 90 Oxygen Delivery Nasal Cannula Oxygen Flow Rate 4 Fraction of Inspired Oxygen 10/01/24 22:30 10/01/24 22:30 10/02/24 00:00 Temperature Pulse Rate 86 86 72 Respiratory Rate 18 18 10 L Blood Pressure Pulse Oximetry 92 92 92 Oxygen Delivery BiPAP BiPAP BiPAP Oxygen Flow Rate Fraction of Inspired Oxygen 36 36 10/02/24 00:00 10/02/24 00:00 10/02/24 02:00 Temperature 36.9 C Pulse Rate 72 72 70 Respiratory Rate 10 L Blood Pressure 145/86 H Pulse Oximetry 92 Oxygen Delivery Oxygen Flow Rate Fraction of Inspired Oxygen 10/02/24 02:00 10/02/24 03:29 10/02/24 03:44 Temperature 36.8 C Pulse Rate 70 76 77 Respiratory Rate 10 L 10 L 19 Blood Pressure 152/89 H Pulse Oximetry 95 95 Oxygen Delivery BiPAP Oxygen Flow Rate Fraction of Inspired Oxygen 10/02/24 04:00 10/02/24 04:00 10/02/24 04:00 Temperature 36.5 C Pulse Rate 72 76 73 Respiratory Rate 13 16 Blood Pressure 151/80 H Pulse Oximetry 94 95 Oxygen Delivery BiPAP Oxygen Flow Rate Fraction of Inspired Oxygen 36 10/02/24 06:00 10/02/24 06:00 10/02/24 08:00 Temperature 36.5 C 36.5 C Pulse Rate 80 80 90 Respiratory Rate 14 20 Blood Pressure 152/89 H 144/81 H Pulse Oximetry 91 91 Oxygen Delivery Oxygen Flow Rate Fraction of Inspired Oxygen 10/02/24 08:30 10/02/24 08:30 10/02/24 08:30 Temperature Pulse Rate 94 91 Respiratory Rate 20 Blood Pressure Pulse Oximetry 92 Oxygen Delivery Nasal Cannula Oxygen Flow Rate 4 Fraction of Inspired Oxygen Intake/Output Intake/Output: Intake & Output 09/29/24 09/30/24 10/01/24 10/02/24 23:59 23:59 23:59 23:59 Intake Total 606.2 1831.1 1502.5 120 Output Total 1650 1725 2275 1350 Balance -1043.8 106.1 -772.5 -1230 Meds/Results Medications: Active Medications Generic Name Dose Route Start Last Admin Trade Name Freq PRN Reason Stop Dose Admin Albuterol/Ipratropium 3 ml 10/02/24 07:25 Ipratropium 0.5 Mg/Albuterol Sulfate 2.5 Mg Ampul.Neb 3 Ml INHALATION Q4HRT PRN Wheezing Aspirin 81 mg 09/29/24 08:45 10/02/24 08:30 Aspirin 81 Mg Chewable Tablet PO 81 mg DAILY@0800 TONY Administration Atorvastatin Calcium 20 mg 09/29/24 09:00 10/02/24 08:30 Atorvastatin 20 Mg Tablet PO 20 mg DAILY TONY Administration Budesonide 0.5 mg 10/01/24 10:50 10/02/24 08:30 Budesonide Respule Neb 0.5 Mg/2 Ml Amp INHALATION 0.5 mg Q12HRT TONY Administration Buprenorphine HCl 4 mg 10/01/24 20:00 10/02/24 05:58 Buprenorphine Hcl (*Crx) 2 Mg Sublingual Tablet SUBLINGUAL 4 mg Q8H TONY Administration Buprenorphine HCl 8 mg 10/01/24 20:00 10/02/24 05:58 Buprenorphine Hcl (*Crx) 8 Mg Sublingual Tablet SUBLINGUAL 8 mg Q8H TONY Administration Dextrose 12.5 gm 09/29/24 10:29 Dextrose 50% 25 Gm/50 Ml Syringe IV PUSH PRN PRN Hypoglycemia Protocol Doxepin HCl 25 mg 09/29/24 21:00 10/01/24 20:11 Doxepin Hcl 25 Mg Capsule PO 25 mg HS TONY Administration Enoxaparin Sodium 40 mg 09/29/24 09:00 10/02/24 08:31 Enoxaparin 40 Mg/0.4 Ml Syringe SUB-Q 40 mg DAILY TONY Administration Folic Acid 1 mg 10/02/24 09:00 10/02/24 08:30 Folic Acid 1 Mg Tablet PO 1 mg DAILY TONY Administration Furosemide 40 mg 10/02/24 09:00 10/02/24 08:30 Furosemide 40 Mg Tablet PO 40 mg DAILY TONY Administration Glucagon 1 mg 09/29/24 10:29 Glucagon For Inj 1 Mg Vial IM PRN PRN Hypoglycemia Protocol Glucose 15 gm 09/29/24 10:29 Glucose Oral Gel 15 Gm Of Glucse In 37.5 Gm Tube PO PRN PRN Hypoglycemia Protocol Ceftriaxone Sodium 2 gm in 100 mls @ 200 mls/hr 09/29/24 09:00 10/02/24 08:30 Rocephin 2 Gm/Ns 100 Ml IVPB 10/04/24 08:59 200 mls/hr Q24H TONY Administration Dextrose 1,000 mls @ 100 mls/hr 09/29/24 10:29 Dextrose 5% 1,000 Ml IVPB PRN PRN Hypoglycemia Protocol Insulin Aspart 3 - 6 units 10/02/24 11:30 Insulin Aspart (*Bkc) 100 Units/Ml SUB-Q ACHS TONY Protocol Metoprolol Tartrate 37.5 mg 09/29/24 09:00 10/02/24 08:30 Metoprolol Tartrate 12.5 Mg Tablet PO 37.5 mg DAILY TONY Administration Nicotine 1 patch 10/01/24 19:40 10/02/24 08:31 Nicotine (*Pbkc) 14 Mg Patch TRANSDERM 1 patch DAILY TONY Administration Pantoprazole Sodium 40 mg 09/30/24 09:00 10/02/24 08:30 Pantoprazole Sodium Iv 40 Mg Vial IV PUSH 40 mg QAM TONY Administration Thiamine HCl 100 mg 10/02/24 09:00 10/02/24 08:30 Thiamine Hcl 100 Mg Tablet PO 100 mg QAM TONY Administration Radiology Results: ITS Impressions Abdomen X-Ray 09/29/24 06:38 IMPRESSION: 1: NG tube tip in the stomach. 2: Cardiomegaly with mild interstitial edema. Venous Doppler Study 09/29/24 13:13 IMPRESSION: 1: No lower extremity deep venous thrombosis. Chest X-Ray 10/02/24 05:30 Impression: Small left pleural effusion with left basilar atelectasis versus pneumonia. Underlying diffuse chronic interstitial disease. Labs Labs: Laboratory Results - last 24 hr 10/01/24 10/01/24 10/01/24 09:58 11:30 18:36 WBC RBC Hgb Hct MCV MCH MCHC RDW Plt Count MPV Immature Gran % (Auto) Neut % (Auto) Lymph % (Auto) [place] % (Auto) Eos % (Auto) Baso % (Auto) Lymph # (Auto) [place] # (Auto) Eos # (Auto) Baso # (Auto) Abs Immat Gran (auto) Absolute Neuts (auto) Absolute Nucleated RBC Nucleated RBC % Puncture Site Right radial ABG pH 7.426 ABG pCO2 45.2 H ABG pO2 94.4 ABG PO2/FiO2 Ratio 2.36 ABG HCO3 29.1 H ABG O2 Saturation 97.3 ABG O2 Content 18.8 ABG Base Excess 4.0 A-a Gradient 138.8 Oxyhemoglobin 97.0 Carboxyhemoglobin 0.1 Methemoglobin 0.3 Reduced Hemoglobin 2.6 Total Hemoglobin 13.7 O2 Delivery Device Ventilator O2 Liters/Min Not Reportable Minute Volume Not Reportable Vent Rate Not Reportable Vent Mode Spontaneous FiO2 40 Expiratory Pressure Tidal Volume Not Reportable PEEP 5 Inspiratory Pressure Peak Inspir Pressure Not Reportable Pressure Support 8 Sodium Potassium Chloride Carbon Dioxide Anion Gap BUN Creatinine Estim Creat Clear Calc Estimated GFR Glucose POC Capillary Glucose 97 129 H Calcium Phosphorus Magnesium Total Bilirubin AST ALT Alkaline Phosphatase NT-Pro-B Natriuret Pep Total Protein Albumin Procalcitonin Influenza A (RT-PCR) Influenza B (RT-PCR) RSV (RT-PCR) SARS-CoV-2 RNA (RT-PCR) 10/01/24 10/02/24 10/02/24 18:41 00:18 05:57 WBC RBC Hgb Hct MCV MCH MCHC RDW Plt Count MPV Immature Gran % (Auto) Neut % (Auto) Lymph % (Auto) [place] % (Auto) Eos % (Auto) Baso % (Auto) Lymph # (Auto) [place] # (Auto) Eos # (Auto) Baso # (Auto) Abs Immat Gran (auto) Absolute Neuts (auto) Absolute Nucleated RBC Nucleated RBC % Puncture Site ABG pH ABG pCO2 ABG pO2 ABG PO2/FiO2 Ratio ABG HCO3 ABG O2 Saturation ABG O2 Content ABG Base Excess A-a Gradient Oxyhemoglobin Carboxyhemoglobin Methemoglobin Reduced Hemoglobin Total Hemoglobin O2 Delivery Device O2 Liters/Min Minute Volume Vent Rate Vent Mode FiO2 Expiratory Pressure Tidal Volume PEEP Inspiratory Pressure Peak Inspir Pressure Pressure Support Sodium Potassium Chloride Carbon Dioxide Anion Gap BUN Creatinine Estim Creat Clear Calc Estimated GFR Glucose POC Capillary Glucose 91 103 Calcium Phosphorus Magnesium Total Bilirubin AST ALT Alkaline Phosphatase NT-Pro-B Natriuret Pep Total Protein Albumin Procalcitonin Influenza A (RT-PCR) Negative Influenza B (RT-PCR) Negative RSV (RT-PCR) Negative SARS-CoV-2 RNA (RT-PCR) Negative 10/02/24 10/02/24 06:14 06:36 WBC 11.7 H RBC 4.18 L Hgb 12.4 L Hct 39.4 L MCV 94.3 MCH 29.7 MCHC 31.5 L RDW 14.1 Plt Count 221 MPV 10.5 H Immature Gran % (Auto) 0.5 Neut % (Auto) 61.9 Lymph % (Auto) 26.8 [place] % (Auto) 7.7 Eos % (Auto) 2.8 Baso % (Auto) 0.3 Lymph # (Auto) 3.13 [place] # (Auto) 0.9 H Eos # (Auto) 0.3 Baso # (Auto) 0.0 Abs Immat Gran (auto) 0.06 H Absolute Neuts (auto) 7.3 H Absolute Nucleated RBC 0.000 Nucleated RBC % 0.0 Puncture Site Left radial ABG pH 7.379 ABG pCO2 53.4 H ABG pO2 62.7 L ABG PO2/FiO2 Ratio 1.74 ABG HCO3 30.8 H ABG O2 Saturation 91.2 L ABG O2 Content 17.5 ABG Base Excess 4.4 A-a Gradient 132.0 Oxyhemoglobin 91.6 Carboxyhemoglobin Methemoglobin Reduced Hemoglobin Total Hemoglobin 13.6 O2 Delivery Device Bipap O2 Liters/Min Not Reportable Minute Volume Vent Rate Vent Mode FiO2 36 Expiratory Pressure 7 Tidal Volume PEEP Inspiratory Pressure 14 Peak Inspir Pressure Pressure Support Sodium 138 Potassium 4.2 Chloride 102 Carbon Dioxide 30 Anion Gap 6 BUN 30 H Creatinine 0.78 Estim Creat Clear Calc 110 Estimated GFR > 60 Glucose 109 POC Capillary Glucose Calcium 8.7 Phosphorus 3.9 Magnesium 2.2 Total Bilirubin 0.4 AST 19 ALT 12 Alkaline Phosphatase 63 NT-Pro-B Natriuret Pep 477 H Total Protein 7.2 Albumin 3.6 Procalcitonin 0.1 Influenza A (RT-PCR) Influenza B (RT-PCR) RSV (RT-PCR) SARS-CoV-2 RNA (RT-PCR) Quality VTE Prophylaxis VTE prophylaxis: pharmacologic ordered
--- NOTE | 2024-10-02 10:05 | PM.PNPUL ---
Progress Note: A&P Assessment and Plan (1) COPD exacerbation: Code(s): J44.1 - Chronic obstructive pulmonary disease with (acute) exacerbation Status: Acute Assessment and Plan: GOLD grade 3 group E COPD Patient with 51 pack year tobacco use, quit 07/2024, PFTs 06/10/2022 with severe obstructive abnormality with an FEV1 of 1.63 L, 44% predicted, ratio 51%, no bronchodilator response, hyperinflation, moderately decreased DLCO that normalized when adjusted for alveolar volume. Patient with chronic hypoxemic respiratory failure on 4 L nasal cannula at rest and with activity and 4 L bleed in on his noninvasive ventilator. Patient started on noninvasive ventilation 06/2024 through via med. 09/29/2024 white blood cell count 9.2, eosinophils 11.1=5563. 07/10/2024: White blood cell count 8.1, eosinophils 6.8=551/uL. 06/27/2021 white blood cell count 6.4, eosinophils 9.6%=614/uL. 10/01/2024. Patient underwent a spontaneous breathing trial was extubated successfully this morning. I saw the patient and he denied any respiratory distress. He said he was breathing close to his baseline and denied cough or hemoptysis. He is afebrile. White blood cell count 11.8. Creatinine 0.76. Currently is on 5 L nasal cannula with saturations 90%. He had bilateral wheezes. Plan: Patient started on ceftriaxone on 09/29/2024, day 3. Patient is afebrile. Respiratory status has improved. Oxygen at 5 L with a baseline of 4 L. will continue ceftriaxone at this time. Patient states he has no shortness of breath does have wheezing. I will increase the frequency of DuoNebs from q.6 to q.4 hours. Continue budesonide nebulizer, Will hold off on systemic steroids. I will send COVID, RSV, influenza RT PCR assay, respiratory pathogen panel, urine for Legionella, urine for pneumococcal and serum mycoplasma IgM. I will check a procalcitonin in the morning. Will check a BNP. COVID, RSV, influenza RT PCR assay negative. 10/02/24: patient did well throughout the day yesterday. Patient wore Hospital BiPAP machine last night with a fullface mask and said that it felt well and he slept. Currently states he is breathing at his baseline. He denies cough, phlegm or hemoptysis. He is afebrile. Currently is on 4 L nasal cannula saturations 93%. White blood cell count was 11.7, creatinine 0.78. Procalcitonin 0.1. BNP 477. Yesterday he diuresed 872 mL, cumulative diuresis is admission is 3.04 L. His weight today is 124.2. Chest x-ray shows improved left lower lobe aeration with no focal infiltrates. His BNP is 477 and his procalcitonin is 0.1. Plan: Continue budesonide and DuoNebs q.4 hours. He has improved and feels at his baseline and is wheezing have improved. Will hold off on any systemic steroids at this time. He is on 4 L which is his baseline. respiratory pathogen panel, urine for Legionella, urine for pneumococcal and serum mycoplasma IgM If patient tolerates his home noninvasive ventilator tonight will consider discharge on 10/03/2024 on these pulmonary medications: Beta agonist, muscarinic antagonist and inhaled corticosteroids that insurance will cover (Trelegy 100/62.5/24 at 1 puffs Q day or Breztri 160/9/4.8 at 2 puffs BID) or Beta agonsit and inhaled corticosteroid (Advair discus 500/50 at 1 puff BID, Advair HFA 230/21 at 2 puffs BID, Breo Ellipts 200/25 at 1 puff Q day, Dulera 200/5 at 2 puffs BID, or symbicort 160/4.5 at 2 puffs BID) and Muscarinic antagonist that insurance will cover (atrovent 2 puffs Q 6 HR, incruse ellipta 62.5 at 1 puffs Q day, spireva 18 mics at 1 puff Q day or spireva respimat 2.5 mics at 2 puff Q day). Levofloxacin 750 mg p.o. q.day x2 days. Rescue albuterol 2 puffs q.4 hours p.r.n. shortness of breath or wheezing. Rescue DuoNebs q.4 hours p.r.n. shortness of breath or wheezing. Oxygen per formal home O2 assessment on the day of discharge. When he naps or sleeps: Home noninvasive ventilator with the Kenna TT [id number] with 4 L bleed in Discussed with daughter over the phone. Will follow with you. (2) Acute on chronic respiratory failure with hypoxia and hypercapnia: Code(s): J96.21 - Acute and chronic respiratory failure with hypoxia; J96.22 - Acute and chronic respiratory failure with hypercapnia Status: Acute Assessment and Plan: Patient uses 4 L at rest and with activity and 4 L bleed in at night on his BiPAP. Regarding his BiPAP the patient was admitted to the hospital in June of 2024 with chronic hypercarbic respiratory failure and discharged on BiPAP through [facility]. Last hospital settings I could see her BiPAP rate of 18, pressure is 14/7 and 40%. Patient had an overnight oximetry on his home machine with 4 L bleed in with recording duration 6 hours and 14 minutes, average saturation 94%. Low saturation 88%. Time with saturation less than or equal to 88% was 0 minutes. Oxygen desaturation index 7.9. ABG at the end of the night was 7.42/59/65. Patient discharged on this machine. He has been wearing this machine according to the patient and according to the daughter. Plan: Tonight I will place the patient on hospital BiPAP rate of 18, pressure 14/7 and 36% FIO2. I will check an overnight oximetry on these settings and ABG prior to removal. I have told the daughter to bring his home machine in and once he is stable will initiate his home noninvasive ventilator at night while he was in the hospital. 10/02/24: Patient wore the hospital BiPAP rate of 18, pressure is 14/7 and 36% FiO2 and had an overnight oximetry on these settings with recording duration of 6 hours and 48 minutes. Average saturation 95%. Low saturation 83%. Time with saturation less than or equal to 88% was 2 minutes. Oxygen desaturation index 5.2. Patient an ABG prior to removal 7.38/53/63. This morning I obtained a download from [employer] from 07/04/2024 through 10/01/2024. Patient is on noninvasive ventilator with a Kenna [id number]: rate equal auto, EPAP minimum 5, EPAP maximum 10, pressure support 6, pressure support maximum 12, TI minimum 0.9. TI maximum 1.5. % of days with usage greater than or equal to 4 hours is 37%. Average usage on days used is 4 hours and 58 minutes. Weekly average is IPAP 18-25. Weekly EPAP average he had 5-8. Weekly average rate median 16 to 22. Weekly unintentional leak median he 17-130. Median tidal volume 450 to 700. Weekly average minute ventilation median 9-11. Compliance has improved over the last month. Patient tells me he has been wearing the machine and getting use to it and that it is comfortable at home. Plan: will have patient wear his home noninvasive ventilator with the settings above and perform an overnight oximetry on 4 L bleed in and an ABG prior to removal. Subjective Date/time seen: 10/02/24 10:05 Interval history: 10/01/2024: This is a new pulmonary consult for COPD with hypoxic and hypercarbic respiratory failure. 64-year-old with a history of GOLD grade 3 group E COPD with chronic hypoxemic and hypercarbic respiratory failure on 4 L nasal cannula with rest, with activity and BiPAP at night with 4 L bleed in. Regarding his BiPAP the patient was admitted to the hospital in June of 2024 with chronic hypercarbic respiratory failure and discharged on BiPAP through [facility]. Last hospital settings I could see her BiPAP rate of 18, pressure is 14/7 and 40%. Patient had an overnight oximetry on his home machine with 4 L bleed in with recording duration 6 hours and 14 minutes, average saturation 94%. Low saturation 88%. Time with saturation less than or equal to 88% was 0 minutes. Oxygen desaturation index 7.9. ABG at the end of the night was 7.42/59/65. Patient discharged on this machine. He has been wearing this machine according to the patient and according to the daughter. 09/29/2024: According to the daughter the patient has to change his oxygen from his nebulizer to his home BiPAP machine and he failed to do this. Patient became cyanotic and complained he could not breathe EMS was called and he was intubated in the field. ABG in the emergency department was 7.20/66/73. 10/01/2024. Patient underwent a spontaneous breathing trial was extubated successfully this morning. I saw the patient and he denied any respiratory distress. He said he was breathing close to his baseline and denied cough or hemoptysis. He is afebrile. White blood cell count 11.8. Creatinine 0.76. Currently is on 5 L nasal cannula with saturations 90%. He had bilateral wheezes. 10/02/24: patient did well throughout the day yesterday. Patient wore Hospital BiPAP machine last night with a fullface mask and said that it felt well and he slept. Currently states he is breathing at his baseline. He denies cough, phlegm or hemoptysis. He is afebrile. Currently is on 4 L nasal cannula saturations 93%. White blood cell count was 11.7, creatinine 0.78. Yesterday he diuresed 872 mL, cumulative diuresis is admission is 3.04 L. His weight today is 124.2. Chest x-ray shows improved left lower lobe aeration with no focal infiltrates. His BNP is 477 and his procalcitonin is 0.1. Patient wore the hospital BiPAP rate of 18, pressure is 14/7 and 36% FiO2 and had an overnight oximetry on these settings with recording duration of 6 hours and 48 minutes. Average saturation 95%. Low saturation 83%. Time with saturation less than or equal to 88% was 2 minutes. Oxygen desaturation index 5.2. Patient an ABG prior to removal 7.38//63. This morning I obtained a download from [employer] from 07/04/2024 through 10/01/2024. Patient is on noninvasive ventilator with a Kenna [id number]: rate equal auto, EPAP minimum 5, EPAP maximum 10, pressure support 6, pressure support maximum 12, TI minimum 0.9. TI maximum 1.5. % of days with usage greater than or equal to 4 hours is 37%. Average usage on days used is 4 hours and 58 minutes. Weekly average is IPAP 18-25. Weekly EPAP average he had 5-8. Weekly average rate median 16 to 22. Weekly unintentional leak median he 17-130. Median tidal volume 450 to 700. Weekly average minute ventilation median 9-11. Compliance has improved over the last month. Patient tells me he has been wearing the machine and getting use to it and that it is comfortable at home. DATA: 09/18/2024: CT diagnostic chest w con Ordering provider: Jorden Ch MD History: 64 years Male with . suspected mass . Comparison: None. Technique: CT chest with IV contrast. Radiation reduction technique utilized.The dose-length product was 925.20 mGy-cm. 75 mL Omnipaque 350 was given IV. Findings: VISUALIZED THORACIC INLET: Normal. MEDIASTINUM: Aorta/coronary arteries: Mild atheromatous disease. Heart/other: The heart is not enlarged. Lymph nodes: No mediastinal or hilar adenopathy. Precarinal lymph node is seen measuring 1.5 cm. Right hilar lymph node is also seen measuring 1.2 cm. Prevascular lymph nodes are also noted measuring 1.9 and 1.6 cm. LUNGS: Emphysematous changes of the lungs. Atelectatic changes seen in the left lung base posteriorly and in the lingula. No pulmonary nodules or masses. No effusions. No pneumothorax. Opacity seen in the left costophrenic angle is fatty in nature. Right apical tiny granuloma. VISUALIZED UPPER ABDOMEN: Cholelithiasis. Atrophic pancreas. Small soft tissue density seen in the left kidney anteriorly which may be a cyst. Otherwise, the visualized upper abdomen is normal. MUSCULOSKELETAL: Soft tissues: The superficial soft tissues are normal. Bones: Age appropriate degenerative changes of the spine. Healed fracture is seen in the left fifth, sixth, seventh, eighth, ninth and 10th rib. IMPRESSION: No evidence of mass is seen. The soft tissue density seen in the left costophrenic angle is fatty in nature. Left basilar subsegmental atelectasis. Mediastinal lymphadenopathy. Cholelithiasis Underlying emphysematous changes. 07/11/2024: Echo Summary 1. Definity contrast administered improved wall motion interpretation. 2. Left ventricular chamber dimension is normal. 3. Left ventricular systolic function is normal, estimated at 60-65%. 4. There is mild concentric increased left ventricular wall thickness. 5. The left ventricular diastolic function is normal. 6. E/e' 8 is minimally elevated. 7. Left atrial chamber dimension is mildly enlarged. 8. Right atrial chamber dimension is mildly enlarged. 9. There is mild aortic valve sclerosis. 10. There is trace mitral valve regurgitation. 11. No pulmonary hypertension, estimated pulmonary arterial systolic pressure is 23 mmHg. Right Ventricle Right ventricular systolic function is normal and with normal TAPSE 3.6 cm. Right ventricular chamber dimension is normal. Right Atria Right atrial chamber dimension is mildly enlarged. 06/09/2022: This is a pulmonary function test with pre and post-bronchodilator spirometry, plethysmography and diffusing capacity. The test was performed and results interpreted in accordance with the 2019 and 2005 ATS/ERS Task Force guidelines respectively using the Global Lung Function Initiative-2012 reference equations. Patient demonstrated good effort and cooperation. Reproducibility criteria were met. The quality of the pre bronchodilator spirometry maneuver was Grade A and post bronchodilator spirometry maneuver was Grade A. Findings: Spirometry: There is decreased expiratory airflow at all lung volumes with concave expiratory flow tracing. The contour the inspiratory flow tracing is normal. Pre bronchodilator FVC is 3.16 L, 66% predicted. The pre bronchodilator FEV1 is 1.63 L, 44% predicted. The pre bronchodilator FEV1: FVC ratio is 51%. The post bronchodilator FVC is 3.48 L, representing a 10% increase. The post bronchodilator FEV1 is 1.63 L, representing no change. The post bronchodilator FEV1: FVC ratio is 47%. Plethysmography: The total lung capacity is 7.18 L, 97% predicted. The functional residual capacity is 4.78 L, 122% predicted. The residual volume is 4.02 L, 165% predicted. The residual volume: Total lung capacity ratio is 56%. Diffusing capacity: The diffusing capacity unadjusted for hemoglobin and carboxyhemoglobin is 16.1, 57% predicted. The diffusing capacity adjusted for alveolar volume is 4.13, 103% predicted. Impression: There is a severe obstructive abnormality. There is no significant improvement after inhaling a single dose of albuterol. The increase in residual volume to total lung volume ratio is consistent with hyperinflation from an obstructive abnormality. The diffusing capacity unadjusted for hemoglobin and carboxyhemoglobin is moderately decreased and normalizes when adjusted for alveolar volume. There are no prior studies for comparison Review of Systems Constitutional: Constitutional: Reports no additional constitutional complaints Eyes: Eyes: Reports no additional eye complaints ENT: Reports system reviewed and no additional complaints, except as documented Cardiovascular: Cardiovascular: Reports no additional cardiovascular complaints Respiratory: Respiratory: Reports no additional respiratory complaints Gastrointestinal: Gastrointestinal: Reports no additional gastrointestinal complaints Musculoskeletal: Musculoskeletal: Reports no additional musculoskeletal complaints Neurologic: Reports system reviewed and no additional complaints, except as documented Psychiatric: Psychiatric: Reports no additional psychiatric complaints Endocrine: Endocrine: Reports no additional endocrine complaints Hematologic/Lymphatic: Hematologic/Lymphatic: Reports no additional hematologic/lymphatic complaints Allergic/Immunologic: Allergic/Immunologic: Reports no additional allergic/immunologic complaints Exam Const: General: cooperative and comfortable Orientation/consciousness: oriented to person, oriented to place and oriented to time Other: confused HENMT: Head: normal to inspection Ears: hearing grossly normal bilaterally Eyes: General: appearance normal, both eyes and all related structures Neck: Neck: normal visual inspection Chest: Chest palpation & inspection: normal inspection of the chest Resp: Effort & Inspection: normal respiratory effort and able to speak in complete sentences Auscultation: no crackles, no rales, no rhonchi, wheezes and lung sounds not diminished Other: less wheezes today Cardio: Jugular venous distension: no JVD GI: Inspection: normal to inspection Skin: General skin exam: normal color Neuro: General: oriented to person, oriented to place and oriented to time Other: Confused Extrem: General: normal to inspection Psych: Appearance: grossly normal Objective Data Vital Signs Vital Signs: Vital Signs - 24 hr 10/01/24 11:30 10/01/24 11:51 10/01/24 12:00 Temperature Pulse Rate 77 86 Respiratory Rate 14 14 Blood Pressure Pulse Oximetry 96 96 Oxygen Delivery Nasal Cannula Nasal Cannula Oxygen Flow Rate 4 5 Fraction of Inspired Oxygen 40 10/01/24 12:00 10/01/24 12:00 10/01/24 13:36 Temperature 37.2 C Pulse Rate 75 72 77 Respiratory Rate 10 L 14 Blood Pressure 150/78 H Pulse Oximetry 90 Oxygen Delivery Oxygen Flow Rate Fraction of Inspired Oxygen 10/01/24 13:50 10/01/24 13:53 10/01/24 14:00 Temperature 36.9 C Pulse Rate 75 75 83 Respiratory Rate 14 14 19 Blood Pressure 153/86 H Pulse Oximetry 93 92 Oxygen Delivery Nasal Cannula Oxygen Flow Rate 5 Fraction of Inspired Oxygen 10/01/24 14:00 10/01/24 15:00 10/01/24 15:13 Temperature Pulse Rate 80 Respiratory Rate Blood Pressure Pulse Oximetry Oxygen Delivery Nasal Cannula Nasal Cannula Oxygen Flow Rate 5 5 Fraction of Inspired Oxygen 10/01/24 16:00 10/01/24 16:00 10/01/24 16:00 Temperature 36.8 C Pulse Rate 81 86 84 Respiratory Rate 13 14 Blood Pressure 180/97 H Pulse Oximetry 95 96 Oxygen Delivery Nasal Cannula Oxygen Flow Rate 5 Fraction of Inspired Oxygen 40 10/01/24 18:00 10/01/24 18:00 10/01/24 20:00 Temperature 36.8 C Pulse Rate 81 80 88 Respiratory Rate 14 18 Blood Pressure 169/92 H Pulse Oximetry 97 95 Oxygen Delivery Nasal Cannula Oxygen Flow Rate 5 Fraction of Inspired Oxygen 10/01/24 20:00 10/01/24 20:00 10/01/24 20:58 Temperature 36.7 C Pulse Rate 72 88 86 Respiratory Rate 18 16 Blood Pressure 146/86 H Pulse Oximetry 95 Oxygen Delivery Oxygen Flow Rate Fraction of Inspired Oxygen 10/01/24 21:03 10/01/24 22:00 10/01/24 22:00 Temperature 36.8 C Pulse Rate 86 79 79 Respiratory Rate 16 9 L Blood Pressure 148/83 H Pulse Oximetry 97 90 Oxygen Delivery Nasal Cannula Oxygen Flow Rate 4 Fraction of Inspired Oxygen 10/01/24 22:30 10/01/24 22:30 10/02/24 00:00 Temperature Pulse Rate 86 86 72 Respiratory Rate 18 18 10 L Blood Pressure Pulse Oximetry 92 92 92 Oxygen Delivery BiPAP BiPAP BiPAP Oxygen Flow Rate Fraction of Inspired Oxygen 36 36 10/02/24 00:00 10/02/24 00:00 10/02/24 02:00 Temperature 36.9 C Pulse Rate 72 72 70 Respiratory Rate 10 L Blood Pressure 145/86 H Pulse Oximetry 92 Oxygen Delivery Oxygen Flow Rate Fraction of Inspired Oxygen 10/02/24 02:00 10/02/24 03:29 10/02/24 03:44 Temperature 36.8 C Pulse Rate 70 76 77 Respiratory Rate 10 L 10 L 19 Blood Pressure 152/89 H Pulse Oximetry 95 95 Oxygen Delivery BiPAP Oxygen Flow Rate Fraction of Inspired Oxygen 10/02/24 04:00 10/02/24 04:00 10/02/24 04:00 Temperature 36.5 C Pulse Rate 72 76 73 Respiratory Rate 13 16 Blood Pressure 151/80 H Pulse Oximetry 94 95 Oxygen Delivery BiPAP Oxygen Flow Rate Fraction of Inspired Oxygen 36 10/02/24 06:00 10/02/24 06:00 10/02/24 08:00 Temperature 36.5 C 36.5 C Pulse Rate 80 80 90 Respiratory Rate 14 20 Blood Pressure 152/89 H 144/81 H Pulse Oximetry 91 91 Oxygen Delivery Oxygen Flow Rate Fraction of Inspired Oxygen 10/02/24 08:00 10/02/24 08:30 10/02/24 08:30 Temperature Pulse Rate 91 94 Respiratory Rate 20 Blood Pressure Pulse Oximetry 92 92 Oxygen Delivery Nasal Cannula Nasal Cannula Oxygen Flow Rate 4 4 Fraction of Inspired Oxygen 36 10/02/24 08:30 Temperature Pulse Rate 91 Respiratory Rate 20 Blood Pressure Pulse Oximetry Oxygen Delivery Oxygen Flow Rate Fraction of Inspired Oxygen Intake/Output Intake/Output: Intake & Output 09/29/24 09/30/24 10/01/24 10/02/24 23:59 23:59 23:59 23:59 Intake Total 606.2 1831.1 1502.5 360 Output Total 1650 1725 2275 1350 Balance -1043.8 106.1 -772.5 -990 Meds/Results Medications: Active Medications Generic Name Dose Route Start Last Admin Trade Name Freq PRN Reason Stop Dose Admin Albuterol/Ipratropium 3 ml 10/02/24 07:25 Ipratropium 0.5 Mg/Albuterol Sulfate 2.5 Mg Ampul.Neb 3 Ml INHALATION Q4HRT PRN Wheezing Aspirin 81 mg 09/29/24 08:45 10/02/24 08:30 Aspirin 81 Mg Chewable Tablet PO 81 mg DAILY@0800 TONY Administration Atorvastatin Calcium 20 mg 09/29/24 09:00 10/02/24 08:30 Atorvastatin 20 Mg Tablet PO 20 mg DAILY TONY Administration Budesonide 0.5 mg 10/01/24 10:50 10/02/24 08:30 Budesonide Respule Neb 0.5 Mg/2 Ml Amp INHALATION 0.5 mg Q12HRT TONY Administration Buprenorphine HCl 4 mg 10/01/24 20:00 10/02/24 05:58 Buprenorphine Hcl (*Crx) 2 Mg Sublingual Tablet SUBLINGUAL 4 mg Q8H TONY Administration Buprenorphine HCl 8 mg 10/01/24 20:00 10/02/24 05:58 Buprenorphine Hcl (*Crx) 8 Mg Sublingual Tablet SUBLINGUAL 8 mg Q8H TONY Administration Dextrose 12.5 gm 09/29/24 10:29 Dextrose 50% 25 Gm/50 Ml Syringe IV PUSH PRN PRN Hypoglycemia Protocol Doxepin HCl 25 mg 09/29/24 21:00 10/01/24 20:11 Doxepin Hcl 25 Mg Capsule PO 25 mg HS TONY Administration Enoxaparin Sodium 40 mg 09/29/24 09:00 10/02/24 08:31 Enoxaparin 40 Mg/0.4 Ml Syringe SUB-Q 40 mg DAILY TONY Administration Folic Acid 1 mg 10/02/24 09:00 10/02/24 08:30 Folic Acid 1 Mg Tablet PO 1 mg DAILY TONY Administration Furosemide 40 mg 10/02/24 09:00 10/02/24 08:30 Furosemide 40 Mg Tablet PO 40 mg DAILY TONY Administration Glucagon 1 mg 09/29/24 10:29 Glucagon For Inj 1 Mg Vial IM PRN PRN Hypoglycemia Protocol Glucose 15 gm 09/29/24 10:29 Glucose Oral Gel 15 Gm Of Glucse In 37.5 Gm Tube PO PRN PRN Hypoglycemia Protocol Ceftriaxone Sodium 2 gm in 100 mls @ 200 mls/hr 09/29/24 09:00 10/02/24 08:30 Rocephin 2 Gm/Ns 100 Ml IVPB 10/04/24 08:59 200 mls/hr Q24H TONY Administration Dextrose 1,000 mls @ 100 mls/hr 09/29/24 10:29 Dextrose 5% 1,000 Ml IVPB PRN PRN Hypoglycemia Protocol Insulin Aspart 3 - 6 units 10/02/24 11:30 Insulin Aspart (*Bkc) 100 Units/Ml SUB-Q ACHS TONY Protocol Metoprolol Tartrate 37.5 mg 09/29/24 09:00 10/02/24 08:30 Metoprolol Tartrate 12.5 Mg Tablet PO 37.5 mg DAILY TONY Administration Nicotine 1 patch 10/01/24 19:40 10/02/24 08:31 Nicotine (*Pbkc) 14 Mg Patch TRANSDERM 1 patch DAILY TONY Administration Pantoprazole Sodium 40 mg 09/30/24 09:00 10/02/24 08:30 Pantoprazole Sodium Iv 40 Mg Vial IV PUSH 40 mg QAM TONY Administration Thiamine HCl 100 mg 10/02/24 09:00 10/02/24 08:30 Thiamine Hcl 100 Mg Tablet PO 100 mg QAM TONY Administration Radiology Results: ITS Impressions Abdomen X-Ray 09/29/24 06:38 IMPRESSION: 1: NG tube tip in the stomach. 2: Cardiomegaly with mild interstitial edema. Venous Doppler Study 09/29/24 13:13 IMPRESSION: 1: No lower extremity deep venous thrombosis. Chest X-Ray 10/02/24 05:30 Impression: Small left pleural effusion with left basilar atelectasis versus pneumonia. Underlying diffuse chronic interstitial disease. Labs Labs: Laboratory Results - last 24 hr 10/01/24 10/01/24 10/01/24 09:58 11:30 18:36 WBC RBC Hgb Hct MCV MCH MCHC RDW Plt Count MPV Immature Gran % (Auto) Neut % (Auto) Lymph % (Auto) [place] % (Auto) Eos % (Auto) Baso % (Auto) Lymph # (Auto) [place] # (Auto) Eos # (Auto) Baso # (Auto) Abs Immat Gran (auto) Absolute Neuts (auto) Absolute Nucleated RBC Nucleated RBC % Puncture Site Right radial ABG pH 7.426 ABG pCO2 45.2 H ABG pO2 94.4 ABG PO2/FiO2 Ratio 2.36 ABG HCO3 29.1 H ABG O2 Saturation 97.3 ABG O2 Content 18.8 ABG Base Excess 4.0 A-a Gradient 138.8 Oxyhemoglobin 97.0 Carboxyhemoglobin 0.1 Methemoglobin 0.3 Reduced Hemoglobin 2.6 Total Hemoglobin 13.7 O2 Delivery Device Ventilator O2 Liters/Min Not Reportable Minute Volume Not Reportable Vent Rate Not Reportable Vent Mode Spontaneous FiO2 40 Expiratory Pressure Tidal Volume Not Reportable PEEP 5 Inspiratory Pressure Peak Inspir Pressure Not Reportable Pressure Support 8 Sodium Potassium Chloride Carbon Dioxide Anion Gap BUN Creatinine Estim Creat Clear Calc Estimated GFR Glucose POC Capillary Glucose 97 129 H Calcium Phosphorus Magnesium Total Bilirubin AST ALT Alkaline Phosphatase NT-Pro-B Natriuret Pep Total Protein Albumin Procalcitonin Influenza A (RT-PCR) Influenza B (RT-PCR) RSV (RT-PCR) SARS-CoV-2 RNA (RT-PCR) 10/01/24 10/02/24 10/02/24 18:41 00:18 05:57 WBC RBC Hgb Hct MCV MCH MCHC RDW Plt Count MPV Immature Gran % (Auto) Neut % (Auto) Lymph % (Auto) [place] % (Auto) Eos % (Auto) Baso % (Auto) Lymph # (Auto) [place] # (Auto) Eos # (Auto) Baso # (Auto) Abs Immat Gran (auto) Absolute Neuts (auto) Absolute Nucleated RBC Nucleated RBC % Puncture Site ABG pH ABG pCO2 ABG pO2 ABG PO2/FiO2 Ratio ABG HCO3 ABG O2 Saturation ABG O2 Content ABG Base Excess A-a Gradient Oxyhemoglobin Carboxyhemoglobin Methemoglobin Reduced Hemoglobin Total Hemoglobin O2 Delivery Device O2 Liters/Min Minute Volume Vent Rate Vent Mode FiO2 Expiratory Pressure Tidal Volume PEEP Inspiratory Pressure Peak Inspir Pressure Pressure Support Sodium Potassium Chloride Carbon Dioxide Anion Gap BUN Creatinine Estim Creat Clear Calc Estimated GFR Glucose POC Capillary Glucose 91 103 Calcium Phosphorus Magnesium Total Bilirubin AST ALT Alkaline Phosphatase NT-Pro-B Natriuret Pep Total Protein Albumin Procalcitonin Influenza A (RT-PCR) Negative Influenza B (RT-PCR) Negative RSV (RT-PCR) Negative SARS-CoV-2 RNA (RT-PCR) Negative 10/02/24 10/02/24 06:14 06:36 WBC 11.7 H RBC 4.18 L Hgb 12.4 L Hct 39.4 L MCV 94.3 MCH 29.7 MCHC 31.5 L RDW 14.1 Plt Count 221 MPV 10.5 H Immature Gran % (Auto) 0.5 Neut % (Auto) 61.9 Lymph % (Auto) 26.8 [place] % (Auto) 7.7 Eos % (Auto) 2.8 Baso % (Auto) 0.3 Lymph # (Auto) 3.13 [place] # (Auto) 0.9 H Eos # (Auto) 0.3 Baso # (Auto) 0.0 Abs Immat Gran (auto) 0.06 H Absolute Neuts (auto) 7.3 H Absolute Nucleated RBC 0.000 Nucleated RBC % 0.0 Puncture Site Left radial ABG pH 7.379 ABG pCO2 53.4 H ABG pO2 62.7 L ABG PO2/FiO2 Ratio 1.74 ABG HCO3 30.8 H ABG O2 Saturation 91.2 L ABG O2 Content 17.5 ABG Base Excess 4.4 A-a Gradient 132.0 Oxyhemoglobin 91.6 Carboxyhemoglobin Methemoglobin Reduced Hemoglobin Total Hemoglobin 13.6 O2 Delivery Device Bipap O2 Liters/Min Not Reportable Minute Volume Vent Rate Vent Mode FiO2 36 Expiratory Pressure 7 Tidal Volume PEEP Inspiratory Pressure 14 Peak Inspir Pressure Pressure Support Sodium 138 Potassium 4.2 Chloride 102 Carbon Dioxide 30 Anion Gap 6 BUN 30 H Creatinine 0.78 Estim Creat Clear Calc 110 Estimated GFR > 60 Glucose 109 POC Capillary Glucose Calcium 8.7 Phosphorus 3.9 Magnesium 2.2 Total Bilirubin 0.4 AST 19 ALT 12 Alkaline Phosphatase 63 NT-Pro-B Natriuret Pep 477 H Total Protein 7.2 Albumin 3.6 Procalcitonin 0.1 Influenza A (RT-PCR) Influenza B (RT-PCR) RSV (RT-PCR) SARS-CoV-2 RNA (RT-PCR)
[2024-10-02 11:37] LABS: Glucose Point of Care 144 mg/dl (65-105)
--- NOTE | 2024-10-02 11:47 | PCFNICU ---
ICU Rounding Note: Pt current nutrition is Heart Healthy. Last recorded weight is 124.2 kg, down from 128.1 kg Bowel Motility: No BM reported. Labs Reviewed: BUN 30, Hct 39.4, Hgb 12.4 Meds Noted: Thiamine, Folic Acid, NovoLog, Rocephin Skin: WNL Additional Notes: Patient had bedside swallow 10/01-recommending Soft and Bite Sized, Level 6 with Mod Thick liquids, Level 3. Speech to eval today for diet upgrade. Diet has upgraded to regular consistencies. Oral Intake > 50% of meals. Agree with diet orders. Following daily in ICU rounds. Monitoring speech evaluation, swallowing ability, weights, labs, plan of care every 5 days.
--- NOTE | 2024-10-02 14:36 | PCSTNOTE ---
Please refer to the Bedside Swallow Evaluation in the EMR. Please note, silent aspiration cannot be ruled out at bedside. Pt was seen for a follow up bedside swallow evaluation; pt was seen yesterday after extubation (of 2 days) when he exhibited overt s/s of aspiration with thin & mildly thick liquids. This evaluation was done to determine need for an MBS. Pt was seated upright in the bed and stating he wants thin liquids. Per pts RN, the pt is eating the level 6 and level 3 diet recommended yesterday without difficulty. The pt was tested with thin liquids in 5 ml trials via a spoon, then uncontrolled trials via cup sips & then a straw. Laryngeal elevation appeared adequate. No overt s/s of aspiration were exhibited. Impression and recommendations: functional swallowing; advance diet to level 7 regular and level 0 regular thin; no further ST is warranted at this time. Notify ST if further difficulty develops.
[2024-10-02] MEDS: ACETAMINOPHEN 325 MG TABLET 650 MG PO (18:29)
[2024-10-02] MEDS: DOXEPIN HCL 25 MG CAPSULE PO (21:07)
[2024-10-02] MEDS: ALPRAZolam (*CRX) 0.5 MG TABLET PO (23:28)
[2024-10-02] MEDS: FUROSEMIDE INJ 40 MG/4 ML VIAL IV PUSH (23:28)
[2024-10-03] VITALS (22 sets, daily range): BP systolic 115–127; BP diastolic 61–72; PULSE 81–120; RESP 14–22; TEMP 36.4–37.1; O2SAT 85–96
--- NOTE | 2024-10-03 03:02 | PCRCNOTE ---
0245: Upon RT entering room, patient was found awake and attempting to eat candy under PAP mask. Transitioned him to nasal cannula 4 L/min
[2024-10-03 04:16] LABS: Hematocrit 44.7 % (42.0-52.0); Mean Corpuscular HGB Conc 31.3 g/dl (32-36); Mean Corpuscular Hemoglobin 29.6 pg (26-34); Mean Corpuscular Volume 94.5 fl (80-100); Mean Platelet Volume 11.8 fl (7.4-10.4); Platelet Count Result 147 k/mm3 (150-375); Red Blood Count 4.73 M/mm3 (4.6-6.20); Red Cell Distribution Width 13.6 % (11.5-14.5)
[2024-10-03 04:36] LABS: Alanine Aminotransferase 15 U/L (6-50); Albumin Level 4.1 g/dL (3.5-5.1); Alkaline Phosphatase 66 U/L (38-126); Anion Gap 9 mmol/L (4-12); Aspartate Amino Transferase 26 U/L (17-59); Bilirubin,Total 0.5 mg/dL (0.2-1.3); Blood Urea Nitrogen 31 mg/dL (9-20); Calcium 8.3 mg/dL (8.4-10.2); Carbon Dioxide 28 mmol/L (22-30); Chloride 97 mmol/L (98-107); Estimated CRCL calculation 99 ml/min; Estimated Glomerular Filt Rate > 60; Glucose 139 mg/dL (65-110); Magnesium 2.2 mg/dL (1.6-2.3); Potassium 4.2 mmol/L (3.4-5.0); Sodium 134 mmol/L (137-145); Total Protein 8.1 g/dL (6.3-8.2)
[2024-10-03] MEDS: BUPRENORPHINE HCL (*CRX) 2 MG SUBLINGUAL TABLET 4 MG SUBLINGUAL ×2 (05:01→14:45)
[2024-10-03] MEDS: BUPRENORPHINE HCL (*CRX) 8 MG SUBLINGUAL TABLET SUBLINGUAL ×2 (05:01→14:45)
[2024-10-03 05:21] LABS: Alveolar/Arterial O2 Gradient 128.2 mmHg; Base Excess ABG 5.2 mEq/l (+/-2.0); Fractional Inspired Oxygen 36 %; Oxygen Content ABG 19.5 %vol (16.0-22.0); Oxygen Saturation ABG 94.2 % (95.0-100.0); Oxyhemoglobin 93.9 % THb (90.0-100.0); PCO2 ABG 49.8 mmHg (35.0-45.0); PO2 ABG 70.7 mmHg (80.0-100.0); PO2 FiO2 Ratio Arterial Blood 1.96 %; Total Hemoglobin 14.8 g/dL (12.0-18.0); pH ABG 7.412 (7.350-7.450)
[2024-10-03 05:45] LABS: Device OTHER DEVICE; Modified Allen's Test Pass; Site Drawn LEFT RADIAL
[2024-10-03 06:30] LABS: Glucose Point of Care 120 mg/dl (65-105)
[2024-10-03] MEDS: BUDESONIDE RESPULE NEB 0.5 MG/2 ML AMP INHALATION (07:54)
[2024-10-03] MEDS: IPRATROPIUM 0.5 MG/ALBUTEROL SULFATE 2.5 MG AMPUL.NEB 3 ML INHALATION ×2 (07:55→14:17)
[2024-10-03] MEDS: PANTOPRAZOLE SODIUM IV 40 MG VIAL IV PUSH (08:33)
[2024-10-03] MEDS: ENOXAPARIN 40 MG/0.4 ML SYRINGE SUB-Q (08:33)
[2024-10-03] MEDS: ASPIRIN 81 MG CHEWABLE TABLET PO (08:33)
[2024-10-03] MEDS: cefTRIAXone 2 GM/NS 100 ML 2 GM/100 ML BAG IVPB (08:33)
[2024-10-03] MEDS: NICOTINE (*PBKC) 14 MG PATCH 1 PATCH TRANSDERM (08:33)
[2024-10-03] MEDS: THIAMINE HCL 100 MG TABLET PO (08:33)
[2024-10-03] MEDS: FOLIC ACID 1 MG TABLET PO (08:34)
[2024-10-03] MEDS: METOPROLOL TARTRATE 12.5 MG TABLET 37.5 MG PO (08:34)
[2024-10-03] MEDS: FUROSEMIDE 40 MG TABLET PO (08:34)
[2024-10-03] MEDS: ATORVASTATIN 20 MG TABLET PO (08:34)
--- NOTE | 2024-10-03 08:48 | P.PNPL_ITS ---
Progress Note: A&P Assessment and Plan (1) COPD exacerbation: Code(s): J44.1 - Chronic obstructive pulmonary disease with (acute) exacerbation Status: Acute Assessment and Plan: GOLD grade 3 group E COPD Patient with 51 pack year tobacco use, quit 07/2024, PFTs 06/10/2022 with severe obstructive abnormality with an FEV1 of 1.63 L, 44% predicted, ratio 51%, no bronchodilator response, hyperinflation, moderately decreased DLCO that normalized when adjusted for alveolar volume. CT scan on 09/18/2024 with severe apical predominant centrilobular emphysema. Patient with chronic hypoxemic respiratory failure on 4 L nasal cannula at rest and with activity and 4 L bleed in on his noninvasive ventilator. Patient started on noninvasive ventilation 06/2024 through via med. 09/29/2024 white blood cell count 9.2, eosinophils 11.2=4967. 07/10/2024: White blood cell count 8.1, eosinophils 6.8=551/uL. 06/27/2021 white blood cell count 6.4, eosinophils 9.6%=614/uL. echocardiogram 07/11/2024 with LV function 60-65%, normal diastolic function, mildly enlarged left atrium, mildly enlarged right atrium, normal right ventricular size and function, PASP 23. 09/29/2024: According to the daughter the patient has to change his oxygen from his nebulizer to his home AVAPS-AE machine and he failed to do this. Patient became cyanotic and complained he could not breathe, EMS was called and he was intubated in the field. ABG in the emergency department was 7.20/66/73. 10/01/2024. Patient underwent a spontaneous breathing trial was extubated successfully this morning. I saw the patient and he denied any respiratory distress. He said he was breathing close to his baseline and denied cough or hemoptysis. He is afebrile. White blood cell count 11.8. Creatinine 0.76. Currently is on 5 L nasal cannula with saturations 90%. He had bilateral wheezes. Plan: Patient started on ceftriaxone on 09/29/2024, day 3. Patient is afebrile. Respiratory status has improved. Oxygen at 5 L with a baseline of 4 L. will continue ceftriaxone at this time. Patient states he has no shortness of breath does have wheezing. I will increase the frequency of DuoNebs from q.6 to q.4 hours. Continue budesonide nebulizer, Will hold off on systemic steroids. I will send COVID, RSV, influenza RT PCR assay, respiratory pathogen panel, urine for Legionella, urine for pneumococcal and serum mycoplasma IgM. I will check a procalcitonin in the morning. Will check a BNP. COVID, RSV, influenza RT PCR assay negative. 10/02/24: patient did well throughout the day yesterday. Patient wore Hospital BiPAP machine last night with a fullface mask and said that it felt well and he slept. Currently states he is breathing at his baseline. He denies cough, phlegm or hemoptysis. He is afebrile. Currently is on 4 L nasal cannula saturations 93%. White blood cell count was 11.7, creatinine 0.78. Procalcitonin 0.1. BNP 477. Yesterday he diuresed 872 mL, cumulative diuresis is admission is 3.04 L. His weight today is 124.2. Chest x-ray shows improved left lower lobe aeration with no focal infiltrates. His BNP is 477 and his procalcitonin is 0.1. Plan: Continue budesonide and DuoNebs q.4 hours. He has improved and feels at his baseline and is wheezing have improved. Will hold off on any systemic steroids at this time. He is on 4 L which is his baseline. respiratory pathogen panel, urine for Legionella, urine for pneumococcal and serum mycoplasma IgM. 10/03/24: patient continues to improve. Patient tells me he is breathing back at his baseline. His cough is at his baseline and he denies any phlegm and hemoptysis. He is afebrile. Currently the patient is on 4 L nasal cannula saturations 94%. White blood cell count 13.0, creatinine 0.88. Yesterday he diuresed 3.4 L, cumulative diuresis since admission is 6.9 L. His weight today is 124. Patient tells me he is ready to be discharged home. From a pulmonary perspective patient is ready to be discharged on these pulmonary medications: Beta agonist, muscarinic antagonist and inhaled corticosteroids that insurance will cover (Trelegy 100/62.5/24 at 1 puffs Q day or Breztri 160/9/4.8 at 2 puffs BID) or Beta agonsit and inhaled corticosteroid (Advair discus 500/50 at 1 puff BID, Advair HFA 230/21 at 2 puffs BID, Breo Ellipts 200/25 at 1 puff Q day, Dulera 200/5 at 2 puffs BID, or symbicort 160/4.5 at 2 puffs BID) and Muscarinic antagonist that insurance will cover (atrovent 2 puffs Q 6 HR, incruse ellipta 62.5 at 1 puffs Q day, spireva 18 mics at 1 puff Q day or spireva respimat 2.5 mics at 2 puff Q day). Levofloxacin 750 mg p.o. q.day x2 days. Rescue albuterol 2 puffs q.4 hours p.r.n. shortness of breath or wheezing. Rescue DuoNebs q.4 hours p.r.n. shortness of breath or wheezing. Oxygen per formal home O2 assessment which I have ordered. When he naps or sleeps: Home noninvasive ventilator with the Kenna TT V-AVAPS-AE with rate of auto, EPAP minimum 5, EPAP maximum 10, pressure support 6, pressure support maximum 12, TI minimum 0.9. TI maximum 1.5 and 4 L bleed in. Follow-up in the Pulmonary Clinic in 4 weeks. I gave him my business card and informed our senior director finance. He will need a compliance check and PFTs if he is clinically stable Discussed with Dr. Gómez, will sign off, call with questions (2) Acute on chronic respiratory failure with hypoxia and hypercapnia: Code(s): J96.21 - Acute and chronic respiratory failure with hypoxia; J96.22 - Acute and chronic respiratory failure with hypercapnia Status: Acute Assessment and Plan: Patient uses 4 L at rest and with activity and 4 L bleed in at night on his BiPAP. Regarding his BiPAP the patient was admitted to the hospital in June of 2024 with chronic hypercarbic respiratory failure and discharged on BiPAP through [facility]. Last hospital settings I could see her BiPAP rate of 18, pressure is 14/7 and 40%. Patient had an overnight oximetry on his home machine with 4 L bleed in with recording duration 6 hours and 14 minutes, average saturation 94%. Low saturation 88%. Time with saturation less than or equal to 88% was 0 minutes. Oxygen desaturation index 7.9. ABG at the end of the night was 7.42/59/65. Patient discharged on this machine. He has been wearing this machine according to the patient and according to the daughter. Plan: Maxime I will place the patient on hospital BiPAP rate of 18, pressure 14/7 and 36% FIO2. I will check an overnight oximetry on these settings and ABG prior to removal. I have told the daughter to bring his home machine in and once he is stable will initiate his home noninvasive ventilator at night while he was in the hospital. 10/02/24: Patient wore the hospital BiPAP rate of 18, pressure is 14/7 and 36% FiO2 and had an overnight oximetry on these settings with recording duration of 6 hours and 48 minutes. Average saturation 95%. Low saturation 83%. Time with saturation less than or equal to 88% was 2 minutes. Oxygen desaturation index 5.2. Patient an ABG prior to removal 7.38/53/63. This morning I obtained a download from [facility] from 07/04/2024 through 10/01/2024. Patient is on noninvasive ventilator with a Kenna [id number]: rate equal auto, EPAP minimum 5, EPAP maximum 10, pressure support 6, pressure support maximum 12, TI minimum 0.9. TI maximum 1.5. % of days with usage greater than or equal to 4 hours is 37%. Average usage on days used is 4 hours and 58 minutes. Weekly average is IPAP 18-25. Weekly EPAP average he had 5-8. Weekly average rate median 16 to 22. Weekly unintentional leak median he 17- 130. Median tidal volume 450 to 700. Weekly average minute ventilation median 9-11. Compliance has improved over the last month. Patient tells me he has been wearing the machine and getting use to it and that it is comfortable at home. Plan: will have patient wear his home noninvasive ventilator with the settings above and perform an overnight oximetry on 4 L bleed in and an ABG prior to removal. 10/03/24: Patient wore his home noninvasive ventilator with the settings as above with 4 L bleed in. He said he slept well with his fullface mask. Patient had an overnight oximetry on these settings with recording duration of 5 hours and 33 minutes. Average saturation 92%. Low saturation 83%. Time with saturation less than or equal to 88% was 3 minutes. Oxygen desaturation index 3.4. Patient had an ABG prior to removal with a pH of 7.41/50/71. Plan: Current noninvasive ventilator through via med with AVAPS AE settings above with 4 L bleed in provide adequate ventilation and oxygenation. Will continue this with fullface mask at home. Subjective Date/time seen: 10/03/24 08:48 Interval history: 10/01/2024: This is a new pulmonary consult for COPD with hypoxic and hypercarbic respiratory failure. 64-year-old with a history of GOLD grade 3 group E COPD with chronic hypoxemic and hypercarbic respiratory failure on 4 L nasal cannula with rest, with activity and AVAPS-AE at night with 4 L bleed in. Regarding his AVAPS-AE the patient was admitted to the hospital in June of 2024 with chronic hypercarbic respiratory failure and discharged on AVAPS-AE with 4 L bleed in [employer]. Last hospital settings I could see was BiPAP rate of 18, pressure is 14/7 and 40%. Patient had an overnight oximetry on his home machine with 4 L bleed in with recording duration 6 hours and 14 minutes, average saturation 94%. Low saturation 88%. Time with saturation less than or equal to 88% was 0 minutes. Oxygen desaturation index 7.9. ABG at the end of the night was 7.42/59/65. Patient discharged on Kenna [id number]: rate equal auto, EPAP minimum 5, EPAP maximum 10, pressure support 6, pressure support maximum 12, TI minimum 0.9. TI maximum 1.5. He has been wearing this machine according to the patient and according to the daughter. 09/29/2024: According to the daughter the patient has to change his oxygen from his nebulizer to his home BiPAP machine and he failed to do this. Patient became cyanotic and complained he could not breathe EMS was called and he was intubated in the field. ABG in the emergency department was 7.20/66/73. 10/01/2024. Patient underwent a spontaneous breathing trial was extubated successfully this morning. I saw the patient and he denied any respiratory distress. He said he was breathing close to his baseline and denied cough or hemoptysis. He is afebrile. White blood cell count 11.8. Creatinine 0.76. Currently is on 5 L nasal cannula with saturations 90%. He had bilateral wheezes. 10/02/24: patient did well throughout the day yesterday. Patient wore Hospital BiPAP machine last night with a fullface mask and said that it felt well and he slept. Currently states he is breathing at his baseline. He denies cough, phlegm or hemoptysis. He is afebrile. Currently is on 4 L nasal cannula saturations 93%. White blood cell count was 11.7, creatinine 0.78. Yesterday he diuresed 872 mL, cumulative diuresis is admission is 3.04 L. His weight today is 124.2. Chest x-ray shows improved left lower lobe aeration with no focal infiltrates. His BNP is 477 and his procalcitonin is 0.1. Patient wore the hospital BiPAP rate of 18, pressure is 14/7 and 36% FiO2 and had an overnight oximetry on these settings with recording duration of 6 hours and 48 minutes. Average saturation 95%. Low saturation 83%. Time with saturation less than or equal to 88% was 2 minutes. Oxygen desaturation index 5.2. Patient an ABG prior to removal 7.38/53/63. This morning I obtained a download from [facility] from 07/04/2024 through 10/01/2024. Patient is on noninvasive ventilator with a Kenna [id number]: rate equal auto, EPAP minimum 5, EPAP maximum 10, pressure support 6, pressure support maximum 12, TI minimum 0.9. TI maximum 1.5. % of days with usage greater than or equal to 4 hours is 37%. Average usage on days used is 4 hours and 58 minutes. Weekly average is IPAP 18-25. Weekly EPAP average he had 5-8. Weekly average rate median 16 to 22. Weekly unintentional leak median he 17- 130. Median tidal volume 450 to 700. Weekly average minute ventilation median 9-11. Compliance has improved over the last month. Patient tells me he has been wearing the machine and getting use to it and that it is comfortable at home. 10/03/24: patient continues to improve. Patient tells me he is breathing back at his baseline. His cough is at his baseline and he denies any phlegm and hemoptysis. He is afebrile. Currently the patient is on 4 L nasal cannula saturations 94%. White blood cell count 13.0, creatinine 0.88. Yesterday he diuresed 3.4 L, cumulative diuresis since admission is 6.9 L. His weight today is 124. Patient tells me he is ready to be discharged home. Patient wore his home noninvasive ventilator with the settings as above with 4 L bleed in. He said he slept well with his fullface mask. Patient had an overnight oximetry on these settings with recording duration of 5 hours and 33 minutes. Average saturation 92%. Low saturation 83%. Time with saturation less than or equal to 88% was 3 minutes. Oxygen desaturation index 3.4. Patient had an ABG prior to removal with a pH of 7.41/50/71. DATA: 09/18/2024: CT diagnostic chest w con Ordering provider: Jorden Ch MD History: 64 years Male with . suspected mass . Comparison: None. Technique: CT chest with IV contrast. Radiation reduction technique utilized.The dose-length product was 925.20 mGy- cm. 75 mL Omnipaque 350 was given IV. Findings: VISUALIZED THORACIC INLET: Normal. MEDIASTINUM: Aorta/coronary arteries: Mild atheromatous disease. Heart/other: The heart is not enlarged. Lymph nodes: No mediastinal or hilar adenopathy. Precarinal lymph node is seen measuring 1.5 cm. Right hilar lymph node is also seen measuring 1.2 cm. Prevascular lymph nodes are also noted measuring 1.9 and 1.6 cm. LUNGS: Emphysematous changes of the lungs. Atelectatic changes seen in the left lung base posteriorly and in the lingula. No pulmonary nodules or masses. No effusions. No pneumothorax. Opacity seen in the left costophrenic angle is fatty in nature. Right apical tiny granuloma. VISUALIZED UPPER ABDOMEN: Cholelithiasis. Atrophic pancreas. Small soft tissue density seen in the left kidney anteriorly which may be a cyst. Otherwise, the visualized upper abdomen is normal. MUSCULOSKELETAL: Soft tissues: The superficial soft tissues are normal. Bones: Age appropriate degenerative changes of the spine. Healed fracture is seen in the left fifth, sixth, seventh, eighth, ninth and 10th rib. IMPRESSION: No evidence of mass is seen. The soft tissue density seen in the left costophrenic angle is fatty in nature. Left basilar subsegmental atelectasis. Mediastinal lymphadenopathy. Cholelithiasis Underlying emphysematous changes. 07/11/2024: Echo Summary 1. Definity contrast administered improved wall motion interpretation. 2. Left ventricular chamber dimension is normal. 3. Left ventricular systolic function is normal, estimated at 60-65%. 4. There is mild concentric increased left ventricular wall thickness. 5. The left ventricular diastolic function is normal. 6. E/e' 8 is minimally elevated. 7. Left atrial chamber dimension is mildly enlarged. 8. Right atrial chamber dimension is mildly enlarged. 9. There is mild aortic valve sclerosis. 10. There is trace mitral valve regurgitation. 11. No pulmonary hypertension, estimated pulmonary arterial systolic pressure is 23 mmHg. Right Ventricle Right ventricular systolic function is normal and with normal TAPSE 3.6 cm. Right ventricular chamber dimension is normal. Right Atria Right atrial chamber dimension is mildly enlarged. 06/09/2022: This is a pulmonary function test with pre and post-bronchodilator spirometry, plethysmography and diffusing capacity. The test was performed and results interpreted in accordance with the 2019 and 2005 ATS/ERS Task Force guidelines respectively using the Global Lung Function Initiative-2012 reference equations. Patient demonstrated good effort and coope ration. Reproducibility criteria were met. The quality of the pre bronchodilator spirometry maneuver was Grade A and post bronchodilator spirometry maneuver was Grade A. Findings: Spirometry: There is decreased expiratory airflow at all lung volumes with concave expiratory flow tracing. The contour the inspiratory flow tracing is normal. Pre bronchodilator FVC is 3.16 L, 66% predicted. The pre bronchodilator FEV1 is 1.63 L, 44% predicted. The pre bronchodilator FEV1: FVC ratio is 51%. The post bronchodilator FVC is 3.48 L, representing a 10% increase. The post bronchodilator FEV1 is 1.63 L, representing no change. The post bronchodilator FEV1: FVC ratio is 47%. Plethysmography: The total lung capacity is 7.18 L, 97% predicted. The functional residual capacity is 4.78 L, 122% predicted. The residual volume is 4.02 L, 165% predicted. The residual volume: Total lung capacity ratio is 56%. Diffusing capacity: The diffusing capacity unadjusted for hemoglobin and carbox yhemoglobin is 16.1, 57% predicted. The diffusing capacity adjusted for alveolar volume is 4.13, 103% predicted. Impression: There is a severe obstructive abnormality. There is no significant improvement after inhaling a single dose of albuterol. The increase in residual volume to total lung volume ratio is consistent with hyperinflation from an obstructive abnormality. The diffusing capacity unadjusted for hemoglobin and carboxyhemoglobin is moderately decreased and normalizes when adjusted for alveolar volume. There are no prior studies for comparison Review of Systems Constitutional: Constitutional: Reports no additional constitutional complaints Eyes: Eyes: Reports no additional eye complaints ENT: Reports system reviewed and no additional complaints, except as documented Cardiovascular: Cardiovascular: Reports no additional cardiovascular complaints Respiratory: Respiratory: Reports no additional respiratory complaints Gastrointestinal: Gastrointestinal: Reports no additional gastrointestinal complaints Musculoskeletal: Musculoskeletal: Reports no additional musculoskeletal complaints Neurologic: Reports system reviewed and no additional complaints, except as documented Psychiatric: Psychiatric: Reports no additional psychiatric complaints Endocrine: Endocrine: Reports no additional endocrine complaints Hematologic/Lymphatic: Hematologic/Lymphatic: Reports no additional h ematologic/lymphatic complaints Allergic/Immunologic: Allergic/Immunologic: Reports no additional allergic/immunologic complaints Exam Const: General: cooperative and comfortable Orientation/consciousness: oriented to person, oriented to place and oriented to time Other: confused HENMT: Head: normal to inspection Ears: hearing grossly normal bilaterally Eyes: General: appearance normal, both eyes and all related structures Neck: Neck: normal visual inspection Chest: Chest palpation & inspection: normal inspection of the chest Resp: Effort & Inspection: normal respiratory effort and able to speak in complete sentences Auscultation: no crackles, no rales, no rhonchi, wheezes and lung sounds not diminished Other: Wheezes that markedly improved after he expectorated. Cardio: Jugular venous distension: no JVD GI: Inspection: normal to inspection Skin: General skin exam: normal color Neuro: General: oriented to person, oriented to place and oriented to time Other: Confused Extrem: General: normal to inspection Psych: Appearance: grossly normal Objective Data Vital Signs Vital Signs: Vital Signs - 24 hr 10/02/24 10:00 10/02/24 10:00 10/02/24 12:00 Temperature 36.7 C 36.9 C Pulse Rate 72 84 78 Respiratory Rate 13 19 Blood Pressure 168/70 H 170/99 H Pulse Oximetry 92 96 Oxygen Delivery Oxygen Flow Rate Fraction of Inspired Oxygen 10/02/24 12:00 10/02/24 12:00 10/02/24 14:00 Temperature Pulse Rate 78 77 80 Respiratory Rate 19 Blood Pressure Pulse Oximetry 96 Oxygen Delivery Nasal Cannula Oxygen Flow Rate 4 Fraction of Inspired Oxygen 36 10/02/24 15:36 10/02/24 15:36 10/02/24 15:45 Temperature Pulse Rate 92 86 Respiratory Rate 18 18 Blood Pressure Pulse Oximetry 94 Oxygen Delivery Nasal Cannula Oxygen Flow Rate 4 Fraction of Inspired Oxygen 10/02/24 16:00 10/02/24 16:00 10/02/24 16:00 Temperature 37.1 C Pulse Rate 78 78 78 Respiratory Rate 19 21 H Blood Pressure 130/79 Pulse Oximetry 96 94 Oxygen Delivery Nasal Cannula Oxygen Flow Rate 4 Fraction of Inspired Oxygen 36 10/02/24 18:00 10/02/24 20:00 10/02/24 20:00 Temperature 37.1 C Pulse Rate 104 H 106 H Respiratory Rate 21 H Blood Pressure 136/83 Pulse Oximetry 97 97 Oxygen Delivery Nasal Cannula Oxygen Flow Rate 4 Fraction of Inspired Oxygen 10/02/24 20:00 10/02/24 22:00 10/02/24 23:50 Temperature Pulse Rate 96 103 H Respiratory Rate Blood Pressure Pulse Oximetry 95 Oxygen Delivery Oxygen Flow Rate Fraction of Inspired Oxygen 10/02/24 23:50 10/03/24 00:00 10/03/24 00:00 Temperature Pulse Rate 85 96 Respiratory Rate 16 Blood Pressure Pulse Oximetry 95 96 Oxygen Delivery Autopap Autopap Oxygen Flow Rate Fraction of Inspired Oxygen 36 10/03/24 00:00 10/03/24 02:00 10/03/24 03:13 Temperature Pulse Rate 100 94 Respiratory Rate Blood Pressure Pulse Oximetry 96 Oxygen Delivery Nasal Cannula Oxygen Flow Rate 4 Fraction of Inspired Oxygen 10/03/24 04:00 10/03/24 04:00 10/03/24 05:00 Temperature 37.1 C Pulse Rate 101 H 94 Respiratory Rate 22 H Blood Pressure 127/72 Pulse Oximetry 93 96 Oxygen Delivery Oxygen Flow Rate 4 Fraction of Inspired Oxygen 10/03/24 06:00 10/03/24 07:50 10/03/24 07:58 Temperature 36.4 C Pulse Rate 95 90 105 H Respiratory Rate 20 18 Blood Pressure 126/70 Pulse Oximetry 94 95 Oxygen Delivery Nasal Cannula Oxygen Flow Rate 4 Fraction of Inspired Oxygen 10/03/24 07:58 10/03/24 08:11 10/03/24 08:34 Temperature Pulse Rate 105 H 107 H 108 H Respiratory Rate 18 14 Blood Pressure Pulse Oximetry Oxygen Delivery Oxygen Flow Rate Fraction of Inspired Oxygen Intake/Output Intake/Output: Intake & Output 09/30/24 10/01/24 10/02/24 10/03/24 23:59 23:59 23:59 23:59 Intake Total 1831.1 1502.5 1320 480 Output Total 1725 2275 4650 1850 Balance 106.1 -772.5 -3330 -1370 Meds/Results Medications: Active Medications Generic Name Dose Route Start Last Admin Trade Name Freq PRN Reason Stop Dose Admin Acetaminophen 650 mg 10/02/24 18:04 10/02/24 18:29 Acetaminophen 325 Mg Tablet PO 650 mg Q4H PRN Administration Headache Albuterol/Ipratropium 3 ml 10/02/24 07:25 10/02/24 15:36 Ipratropium 0.5 Mg/Albuterol Sulfate 2.5 Mg Ampul.Neb 3 Ml INHALATION 3 ml Q4HRT PRN Administration Wheezing Albuterol/Ipratropium 3 ml 10/03/24 08:00 10/03/24 07:55 Ipratropium 0.5 Mg/Albuterol Sulfate 2.5 Mg Ampul.Neb 3 Ml INHALATION 3 ml Q6HRT TONY Administration Aspirin 81 mg 09/29/24 08:45 10/03/24 08:33 Aspirin 81 Mg Chewable Tablet PO 81 mg DAILY@0800 TONY Administration Atorvastatin Calcium 20 mg 09/29/24 09:00 10/03/24 08:34 Atorvastatin 20 Mg Tablet PO 20 mg DAILY TONY Administration Budesonide 0.5 mg 10/01/24 10:50 10/03/24 07:54 Budesonide Respule Neb 0.5 Mg/2 Ml Amp INHALATION 0.5 mg Q12HRT TONY Administration Buprenorphine HCl 4 mg 10/01/24 20:00 10/03/24 05:01 Buprenorphine Hcl (*Crx) 2 Mg Sublingual Tablet SUBLINGUAL 4 mg Q8H TONY Administration Buprenorphine HCl 8 mg 10/01/24 20:00 10/03/24 05:01 Buprenorphine Hcl (*Crx) 8 Mg Sublingual Tablet SUBLINGUAL 8 mg Q8H TONY Administration Dextrose 12.5 gm 09/29/24 10:29 Dextrose 50% 25 Gm/50 Ml Syringe IV PUSH PRN PRN Hypoglycemia Protocol Doxepin HCl 25 mg 09/29/24 21:00 10/02/24 21:07 Doxepin Hcl 25 Mg Capsule PO 25 mg HS TONY Administration Enoxaparin Sodium 40 mg 09/29/24 09:00 10/03/24 08:33 Enoxaparin 40 Mg/0.4 Ml Syringe SUB-Q 40 mg DAILY TONY Administration Folic Acid 1 mg 10/02/24 09:00 10/03/24 08:34 Folic Acid 1 Mg Tablet PO 1 mg DAILY TONY Administration Furosemide 40 mg 10/02/24 09:00 10/03/24 08:34 Furosemide 40 Mg Tablet PO 40 mg DAILY TONY Administration Glucagon 1 mg 09/29/24 10:29 Glucagon For Inj 1 Mg Vial IM PRN PRN Hypoglycemia Protocol Glucose 15 gm 09/29/24 10:29 Glucose Oral Gel 15 Gm Of Glucse In 37.5 Gm Tube PO PRN PRN Hypoglycemia Protocol Ceftriaxone Sodium 2 gm in 100 mls @ 200 mls/hr 09/29/24 09:00 10/03/24 08:33 Rocephin 2 Gm/Ns 100 Ml IVPB 10/04/24 08:59 200 mls/hr Q24H TONY Administration Dextrose 1,000 mls @ 100 mls/hr 09/29/24 10:29 Dextrose 5% 1,000 Ml IVPB PRN PRN Hypoglycemia Protocol Insulin Aspart 3 - 6 units 10/02/24 11:30 10/03/24 06:32 Insulin Aspart (*Bkc) 100 Units/Ml SUB-Q Not Given ACHS TONY Protocol Metoprolol Tartrate 37.5 mg 09/29/24 09:00 10/03/24 08:34 Metoprolol Tartrate 12.5 Mg Tablet PO 37.5 mg DAILY TONY Administration Nicotine 1 patch 10/01/24 19:40 10/03/24 08:33 Nicotine (*Pbkc) 14 Mg Patch TRANSDERM 1 patch DAILY TONY Administration Pantoprazole Sodium 40 mg 09/30/24 09:00 10/03/24 08:33 Pantoprazole Sodium Iv 40 Mg Vial IV PUSH 40 mg QAM TONY Administration Thiamine HCl 100 mg 10/02/24 09:00 10/03/24 08:33 Thiamine Hcl 100 Mg Tablet PO 100 mg QAM TONY Administration Radiology Results: ITS Impressions Abdomen X-Ray 09/29/24 06:38 IMPRESSION: 1: NG tube tip in the stomach. 2: Cardiomegaly with mild interstitial edema. Venous Doppler Study 09/29/24 13:13 IMPRESSION: 1: No lower extremity deep venous thrombosis. Chest X-Ray 10/02/24 05:30 Impression: Small left pleural effusion with left basilar atelectasis versus pneumonia. Underlying diffuse chronic interstitial disease. Labs Labs: Laboratory Results - last 24 hr 10/02/24 10/03/24 10/03/24 11:34 03:47 04:55 WBC 13.0 H RBC 4.73 Hgb 14.0 Hct 44.7 MCV 94.5 MCH 29.6 MCHC 31.3 L RDW 13.6 Plt Count 147 L MPV 11.8 H Puncture Site Left radial ABG pH 7.412 ABG pCO2 49.8 H ABG pO2 70.7 L ABG PO2/FiO2 Ratio 1.96 ABG HCO3 31.0 H ABG O2 Saturation 94.2 L ABG O2 Content 19.5 ABG Base Excess 5.2 A-a Gradient 128.2 Oxyhemoglobin 93.9 Total Hemoglobin 14.8 O2 Delivery Device Other device O2 Liters/Min 4.0 FiO2 36 Sodium 134 L Potassium 4.2 Chloride 97 L Carbon Dioxide 28 Anion Gap 9 BUN 31 H Creatinine 0.88 Estim Creat Clear Calc 99 Estimated GFR > 60 Glucose 139 H POC Capillary Glucose 144 H Calcium 8.3 L Magnesium 2.2 Total Bilirubin 0.5 AST 26 ALT 15 Alkaline Phosphatase 66 Total Protein 8.1 Albumin 4.1 10/03/24 06:27 WBC RBC Hgb Hct MCV MCH MCHC RDW Plt Count MPV Puncture Site ABG pH ABG pCO2 ABG pO2 ABG PO2/FiO2 Ratio ABG HCO3 ABG O2 Saturation ABG O2 Content ABG Base Excess A-a Gradient Oxyhemoglobin Total Hemoglobin O2 Delivery Device O2 Liters/Min FiO2 Sodium Potassium Chloride Carbon Dioxide Anion Gap BUN Creatinine Estim Creat Clear Calc Estimated GFR Glucose POC Capillary Glucose 120 H Calcium Magnesium Total Bilirubin AST ALT Alkaline Phosphatase Total Protein Albumin
--- NOTE | 2024-10-03 12:08 | HOMEO2EVAL ---
Evaluation was performed at [facility] Home Oxygen Evaluation RC: Home Oxygen (O2) Evaluation Start: 10/03/24 08:52 Freq: ONCE Status: Active Protocol: RPE Activity Type Activity Date Activity User E-sign Co-sign Detail Recorded Client Recorded Date Recorded By Document 10/03/24 10:30 [email or web address] 10/03/24 12:08 DJO Document 10/03/24 10:35 [email or web address] 10/03/24 12:08 DJO Document 10/03/24 10:40 [email or web address] 10/03/24 12:08 DJO Document 10/03/24 10:45 [email or web address] 10/03/24 12:08 DJO Document 10/03/24 10:50 [email or web address] 10/03/24 12:08 DJO Document 10/03/24 11:05 [email or web address] 10/03/24 12:08 DJO 10/03/24 10/03/24 10/03/24 10:30 10:35 10:40 Home O2 Evaluation [Oxygen] -Test Phase Resting Resting Resting -Oxygen Delivery Room Air Nasal Cannula Nasal Cannula -Oxygen Flow Rate (L/min) 2 3 -Fraction of Inspired Oxygen (%) 87 [Pulse Oximetry] -Pulse Oximetry (90-100 %) 85 L 94 88 L [Pulse Rate] -Pulse Rate (60-100 beats/min) 96 92 [Evaluation] -Activity Tolerance [Charges] -Evaluation Charges O2 Evaluation by Pulmonary 10/03/24 10/03/24 10/03/24 10:45 10:50 11:05 Home O2 Evaluation [Oxygen] -Test Phase Resting Exercise Resting -Oxygen Delivery Nasal Cannula Nasal Cannula Nasal Cannula -Oxygen Flow Rate (L/min) 4 4 4 -Fraction of Inspired Oxygen (%) [Pulse Oximetry] -Pulse Oximetry (90-100 %) 92 90 92 [Pulse Rate] -Pulse Rate (60-100 beats/min) 90 120 H 92 [Evaluation] -Activity Tolerance Poor [Charges] -Evaluation Charges
--- NOTE | 2024-10-03 12:09 | PCRCNOTE ---
HOME O2 EVAL COMPLETE, NO CHANGES FROM HOME SETTING, PT'S FAMILY TO BRING IN [place] O2 FOR DISCHARGE
--- NOTE | 2024-10-03 12:52 | PM.DS ---
DS: Admitting Diagnosis Discharge Date 10/03/2024 Admitting Diagnosis Shortness of breath DS: Discharge Diagnosis Discharge Diagnosis (1) Acute on chronic respiratory failure with hypoxia and hypercapnia: Code(s): J96.21 - Acute and chronic respiratory failure with hypoxia; J96.22 - Acute and chronic respiratory failure with hypercapnia Status: Acute Assessment and Plan: 09/28/2024: Patient presented with respiratory distress, cyanosis. Likely did not have his oxygen on, the machine was turned off or he was out of oxygen at home, according to the daughter who told the hospitalist and ER physician. Family called 911, when the EMS arrived he was found to be cyanotic and was intubated on the field with ketamine E and etomidate. He was brought to the [place] [facility] the ED with bag-mask ventilation. Initial ABG showed hypercapnic respiratory failure. Patient also has ongoing compliance issues with his medications and BiPAP use 10/01 extubated Continue supplemental oxygen, BiPAP at night and p.r.n. Continue inhaled steroids and bronchodilators -continue ceftriaxone (09/29) for possible COPD exacerbation Incentive spirometry (2) COPD exacerbation: Code(s): J44.1 - Chronic obstructive pulmonary disease with (acute) exacerbation Status: Acute Assessment and Plan: Possible COPD exacerbation given hypercapnic respiratory failure -treatment as above (3) Hypertension: Code(s): I10 - Essential (primary) hypertension Status: Acute Assessment and Plan: Blood pressures are stable, -continue metoprolol (4) Hyperlipidemia: Code(s): E78.5 - Hyperlipidemia, unspecified Status: Acute Assessment and Plan: Continue atorvastatin (5) Cardiac volume overload: Code(s): E87.79 - Other fluid overload Status: Acute Assessment and Plan: Continue p.o. Lasix 01/29/2025: Venous Dopplers were negative for DVT 07/11/2024 Echocardiogram: Summary 1. Definity contrast administered improved wall motion interpretation. 2. Left ventricular chamber dimension is normal. 3. Left ventricular systolic function is normal, estimated at 60-65%. 4. There is mild concentric increased left ventricular wall thickness. 5. The left ventricular diastolic function is normal. 6. E/e' 8 is minimally elevated. 7. Left atrial chamber dimension is mildly enlarged. 8. Right atrial chamber dimension is mildly enlarged. 9. There is mild aortic valve sclerosis. 10. There is trace mitral valve regurgitation. 11. No pulmonary hypertension, estimated pulmonary arterial systolic pressure is 23 mmHg. (6) Noncompliance: Code(s): Z91.199 - Patient's noncompliance with other medical treatment and regimen due to unspecified reason Status: Acute Assessment and Plan: Patient was counseled to to be more compliant with his medications, oxygen, bronchodilators, BiPAP (7) Tobacco abuse disorder: Code(s): Z72.0 - Tobacco use Status: Acute Assessment and Plan: Patient was counseled and encouraged to quit smoking (8) Alcohol abuse: Code(s): F10.10 - Alcohol abuse, uncomplicated Status: Acute Assessment and Plan: Started patient on thiamine and folic acid -drinks 5-6 shots of fireball daily (9) Polysubstance abuse: Code(s): F19.10 - Other psychoactive substance abuse, uncomplicated Status: Acute Assessment and Plan: Urine drug screen was negative -patient is stopped using drugs since he is on Suboxone now DS: Summary Hospital Course Hospital Course: 64-year-old male with chronic respiratory failure with hypercarbia and hypoxia on 4 L home oxygen, untreated sleep apnea, chronic obstructive pulmonary disease, congestive heart failure (recent echocardiogram showed normal left and right ventricular systolic function and normal diastolic function however echocardiogram in November 2022 showed the possibility of mild hypokinesis of the right ventricle), hypertension, hyperlipidemia, hepatitis-C, depression, anxiety, bipolar disorder, alcohol abuse, and polysubstance abuse who presented to the emergency department via EMS from home after family members called 911 as the patient was in respiratory distress. He is currently intubated on mechanical ventilation is unable to provide any history and at such the following is obtained via a review of his EMR as well as information provided by his family members. The patient is known to myself and the hospitalist service from a recent admission earlier this month in which he was treated for acute on chronic respiratory failure with hypoxia and hypercapnia as well as volume overload, in part due to noncompliance with BiPAP, oxygen, and medication. He was diuresed and was able to be discharged on 09/22/2024. Not long prior to arrival, his daughter found him to be blue and nonresponsive with what sounds like agonal breathing. He was either not wearing his oxygen or the machine was turned off or out of oxygen. He was intubated in the field. There were no reports of fever, fall, chest pain, or vomiting. In the ED: He was afebrile on arrival with a blood pressure of 160/96, pulse 118, respiratory rate 16, SpO2 95% while being bagged via ET tube. Labs were significant for a WBC count of 9.2, hemoglobin 13.1, lactic acid 2.8, troponin less than 0.012. ABG showed a pH of 7.196, pCO2 66.1, PO2 73.3, HC03 25.0. Urine drug screen was negative and ethyl alcohol level was undetectable. Chest x-ray showed that the ET tube was about 4.5 cm above the natalia with nterstitial edema. Density seen at the left base was noted on prior imaging and was found to be fatty in nature on previous CT scan. He was administered a DuoNeb and methylprednisolone and he is being admitted to the ICU in this setting. I assumed care on the day of discharge is 10/03/2024. Discussed with Dr. Dimas who agrees patient can be discharged from pulmonary perspective. Patient also currently doing well. Pulmonology recommended following instruction: Beta agonist, muscarinic antagonist and inhaled corticosteroids that insurance will cover (Trelegy 100/62.5/24 at 1 puffs Q day or Breztri 160/9/4.8 at 2 puffs BID) or Beta agonsit and inhaled corticosteroid (Advair discus 500/50 at 1 puff BID, Advair HFA 230/21 at 2 puffs BID, Breo Ellipts 200/25 at 1 puff Q day, Dulera 200/5 at 2 puffs BID, or symbicort 160/4.5 at 2 puffs BID) and Muscarinic antagonist that insurance will cover (atrovent 2 puffs Q 6 HR, incruse ellipta 62.5 at 1 puffs Q day, spireva 18 mics at 1 puff Q day or spireva respimat 2.5 mics at 2 puff Q day). Levofloxacin 750 mg p.o. q.day x2 days. Rescue albuterol 2 puffs q.4 hours p.r.n. shortness of breath or wheezing. Rescue DuoNebs q.4 hours p.r.n. shortness of breath or wheezing. Oxygen per formal home O2 assessment which I have ordered. When he naps or sleeps: Home noninvasive ventilator with the [place]na TT V-AVAPS-AE with rate of auto, EPAP minimum 5, EPAP maximum 10, pressure support 6, pressure support maximum 12, TI minimum 0.9. TI maximum 1.5 and 4 L bleed in. Called care coordination. Patient also will be discharged with Buspar due to anxiety. Advised respiratory therapy to to teach how to change his oxygen from nebulizer to NIV which was the darryl reason patient was hospitalized. On the day of discharge, the patient was seen and examined. Vital signs were stable. Physical exam were stable and labs were reviewed at length. Discharge instructions, medications, and follow-up appointments were discussed with the patient at length and all day questions were answered. ER warnings were given. Status at Discharge Cognitive/behavioral status at discharge: Stable Time Spent with Patient Time attestation: Total time spent providing and/or coordinating discharge services: 45 minutes Exam Narrative: General: Alert awake and in no acute distress HEENT:? Pupils are equal, reactive, sclera ischemia, Neck:? Supple Respiratory:? Coarse breath sounds bilaterally, Cardiac:? S1-S2 normal, regular rate and rhythm Abdomen:? Soft, nontender, protuberant, hypoactive bowel sounds Extremities:? pitting edema bilateral lower extremities, palpable pedal pulses Neuro:? AO x3, follows commands with all 4 extremities Skin:? Chronic bilateral lower extremity venous stasis changes Psych:? Normal speech and affect DS: Data Data Completed and Pending Labs on day of discharge: Labs from last 24 hours 10/03/24 10/03/24 10/03/24 06:27 04:55 03:47 WBC 13.0 H RBC 4.73 Hgb 14.0 Hct 44.7 MCV 94.5 MCH 29.6 MCHC 31.3 L RDW 13.6 Plt Count 147 L MPV 11.8 H Puncture Site Left radial ABG pH 7.412 ABG pCO2 49.8 H ABG pO2 70.7 L ABG PO2/FiO2 Ratio 1.96 ABG HCO3 31.0 H ABG O2 Saturation 94.2 L ABG O2 Content 19.5 ABG Base Excess 5.2 A-a Gradient 128.2 Oxyhemoglobin 93.9 Total Hemoglobin 14.8 O2 Delivery Device Other device O2 Liters/Min 4.0 FiO2 36 Sodium 134 L Potassium 4.2 Chloride 97 L Carbon Dioxide 28 Anion Gap 9 BUN 31 H Creatinine 0.88 Estim Creat Clear Calc 99 Estimated GFR > 60 Glucose 139 H POC Capillary Glucose 120 H Calcium 8.3 L Magnesium 2.2 Total Bilirubin 0.5 AST 26 ALT 15 Alkaline Phosphatase 66 Total Protein 8.1 Albumin 4.1 Discharge Plan Discharge Attending physician on discharge: Lance Gómez Consulting providers: Porsha Valladares; Philip Dimas Discharging Clinician: Lance Gómez Anticipated Discharge Date/Time: 10/03/24 12:56 Patient Disposition: Home Activity: as tolerated Diet: heart healthy Discharge Instructions: Smoking cessation Started on Buspar due to anxiety. Follow-up with PCP for dose titration. Following Recommendation from Pulmonology: Trelegy one puff q day Levofloxacin 750 mg p.o. q.day x2 days. Rescue albuterol 2 puffs q.4 hours p.r.n. shortness of breath or wheezing. Rescue DuoNebs q.4 hours p.r.n. shortness of breath or wheezing. Oxygen per formal home O2 assessment which I have ordered. When he naps or sleeps: Home noninvasive ventilator with the Kenna TT V-AVAPS-AE with rate of auto, EPAP minimum 5, EPAP maximum 10, pressure support 6, pressure support maximum 12, TI minimum 0.9. TI maximum 1.5 and 4 L bleed in. Check blood pressure 1 to 2 times a day. Record and bring into your doctor for review. Call your doctor if your blood pressure is greater than 180/110 or less than 90/45. Walk with cane or other assist device. Take precautions to avoid falls. Rise slowly from a lying or sitting position. Pause before standing or walking. Contact your doctor or call 911 and come to the Emergency Room if you have any type of trauma, lightheadedness with standing or other worrisome symptoms. Avoid NSAIDs (ibuprofen, naproxen, Aleve). Tylenol is safe to take. Follow-up with your primary care provider in 1-2 weeks. Please call for appointment. Follow-up with Cardiology in 2-4 weeks. Please call for an appointment. Thank you for using [facility] for your health care needs. Patient Instructions: Antibiotic Form, Heart Failure (ED), COPD (Chronic Obstructive Pulmonary Disease) (DC) Patient Language: [place] Stand Alone Forms: General Discharge Information Follow-up/Referrals: Elena,Elton Tan [Primary Care Provider] - Philip Dimas MD [Physician] - Discharge Medications: New thiamine HCl (vitamin B1) [Vitamin B-1] 100 mg Tablet 100 mg PO QAM Qty: 30 0RF levofloxacin 750 mg tablet 750 mg PO DAILY Qty: 2 0RF buspirone 10 mg tablet 10 mg PO BID Qty: 30 0RF Trelegy Ellipta 100-62.5-25 mcg blister with device 1 inh inhalation DAILY Qty: 60 0RF Continued ammonium lactate 12 % lotion 1 applic TOPICAL BID Rx Instructions: apply to bilateral legs BID aspirin 81 mg tablet,delayed release (DR/EC) 81 mg PO DAILY nicotine 7 mg/24 hr patch 24 hour 1 patch topical Q24H furosemide 40 mg tablet 60 mg PO BID Qty: 90 0RF atorvastatin 20 mg tablet 20 mg PO DAILY Qty: 30 0RF doxepin 25 mg capsule 25 mg PO HS Qty: 30 0RF folic acid 1 mg Tablet 1 mg PO DAILY Qty: 14 0RF albuterol sulfate 90 mcg/actuation HFA aerosol inhaler 2 puff INHALATION QID PRN (Reason: Shortness Of Breath Or Wheezing) Qty: 1 0RF buprenorphine-naloxone 12-3 mg film 1 film sublingual TID Qty: 12 0RF metoprolol tartrate 37.5 mg tablet 37.5 mg PO DAILY Qty: 30 0RF Changed ipratropium-albuterol 0.5 mg-3 mg(2.5 mg base)/3 mL solution for nebulization 3 ml inhalation Q4H PRN (Reason: shortness of breath or wheezing) Qty: 90 0RF Date of admission: 09/29/24 10:31 Primary Care Provider: ElenaDominick Admitting Provider: Lance Gómez Attending physician on admission: Lance Gómez Condition: Stable
[2024-10-04 17:44] LABS: Legionella pneumophila Ag Ur. NOT DETECTED
[2024-10-05 18:59] LABS: Mycoplasma IgM Antibody Titer. 61 U/mL
[2024-10-06 17:48] LABS: Adenovirus DNA Not Detected (Not Detected); Chlamydophila pneumoniae Not Detected (Not Detected); Coronavirus 229E Not Detected (Not Detected); Coronavirus HKU1 Not Detected (Not Detected); Coronavirus NL63 Not Detected (Not Detected); Coronavirus OC43 Not Detected (Not Detected); Human Metapneumovirus Not Detected (Not Detected); Human Parainfluenza Virus 1 Not Detected (Not Detected); Human Parainfluenza Virus 2 Not Detected (Not Detected); Human Parainfluenza Virus 3 Not Detected (Not Detected); Human Parainfluenza Virus 4 Not Detected (Not Detected); Human RSV B Not Detected (Not Detected); Influenza A Not Detected (Not Detected); Influenza B Not Detected (Not Detected); Mycoplasma pneumoniae Not Detected (Not Detected); Rhinovirus/Enterovirus Not Detected (Not Detected)
[2024-10-08 12:43] LABS: Alpha-1-Antitrypsin, QN. 143 mg/dL (83-199)
== END 2024-10-03 17:32 | disposition home or self-care (01) | DRG 133 ==
LOC: ANHED 09-29 02:05 → ANHICU 09-29 02:34 → ANHIMU 10-02 17:40
PROVIDERS: Internal Medicine; Internal Medicine Pulmonary Disease; Physician Assistant; Admitting Provider General Practice; Emergency Provider Emergency Medicine; PCP Internal Medicine Infectious Disease; Visit Provider General Practice
DX: J96.21 Acute and chronic respiratory failure with hypoxia (principal); J96.22 Acute and chronic respiratory failure with hypercapnia; I50.810 Right heart failure, unspecified; Z91.199 Patient's noncompliance with other medical treatment and regimen due to unspecified reason; J44.1 Chronic obstructive pulmonary disease with (acute) exacerbation; I11.0 Hypertensive heart disease with heart failure; G47.33 Obstructive sleep apnea (adult) (pediatric); F10.10 Alcohol abuse, uncomplicated; F19.10 Other psychoactive substance abuse, uncomplicated; Z99.81 Dependence on supplemental oxygen; E78.5 Hyperlipidemia, unspecified; F31.9 Bipolar disorder, unspecified; M19.90 Unspecified osteoarthritis, unspecified site; Z87.891 Personal history of nicotine dependence; E66.9 Obesity, unspecified; Z68.37 Body mass index [BMI] 37.0-37.9, adult; Z86.19 Personal history of other infectious and parasitic diseases; F41.9 Anxiety disorder, unspecified
CPT/HCPCS: 36415; 36600; 71045; 80053; 80307; 81001; 82077; 82103; 82104; 82375; 82805; 82948; 83050; 83605; 83735; 83880; 84100; 84145; 84478; 84484; 85018; 85025; 85027; 86738; 87449; 87633; 87637; 87641; 87899; 92610; 93005; 93970; 94002; 94003; 94618; 94640; 94762; 96365; 96372; 96374; 96375; 97110; 97162; 97166; 97530; 97535; 99285; A9270; G0378; G0379; J0571; J0696; J1650; J1938; J2250; J2470; J2704; J2919; J3010; J3411

== ENCOUNTER 2024-12-03 09:17 | Outpatient (CLI) | payer OTHER, SELFPAY ==
--- OUTSIDE RECORDS SUMMARY | 2024-12-03 10:04 | XMS_ITS | Patient Health Record ---
Author Organization [facility] Address [address] [place] [address] Care Team Providers Care Asl Interpreter Name Role Phone Parminder Hildareyna Primary Care Provider Celestine Powers Unavailable [phone] Joel Freedman Unavailable [phone] Francesca Sandoval Unavailable Arabella Mcpherson Unavailable [phone] Allergies No Known Allergies Results Component Value Reference Range Notes Comprehensive Drug Analysis, Urine Reviewed date:11/20/2024 09:36:24 AM Interpretation: Performing Lab:[facility] [employer], [address] [facility], Phone - [phone], Director - Quinton Notes/Report: Summary Report (Summary) FINAL COMPREHENSIVE DRUG ANALYSIS,UR Test Result Flag Units Drug Present Alpha-hydroxymidazolam 413 ng/mg creat Alpha-hydroxymidazolam is an expected metabolite of midazolam. Source of midazolam is a scheduled prescription medication. Buprenorphine 420 ng/mg creat Norbuprenorphine >1031 ng/mg creat Source of buprenorphine is a scheduled prescription medication. Norbuprenorphine is an expected metabolite of buprenorphine. Salicylate PRESENT Test Result Flag Units Ref Range Creatinine 97 mg/dL >=20 For clinical consultation, please call . PDF . 14 Panel Urine Drug Screen Reviewed date:11/07/2024 10:58:29 AM Interpretation: Performing Lab: Notes/Report: THC neg RIVAS neg MOP (OPI) neg AMP neg MET neg BAR neg BZO POS MDMA neg MTD neg OXY neg PCP neg BUP POS TCA POS FTY neg 14 Panel Urine Drug Screen Reviewed date:10/09/2024 01:51:44 PM Interpretation: Performing Lab: Notes/Report: THC neg RIVAS neg MOP (OPI) neg AMP neg MET POS BAR neg BZO neg MDMA neg MTD neg OXY neg PCP neg BUP POS TCA POS FTY neg 12 Panel Urine Drug Screen Reviewed date:04/06/2024 [...] Urine Reviewed date:05/08/2024 09:28:50 AM Interpretation: Performing Lab:[facility], [address] [place] [address], Phone - [phone], [facility]Report: Creatinine 82 REFERENCE RANGE : Ref Range>=20 BUPRENORPHINE ++POSITIVE++ Buprenorphine 332 Norbuprenorphine 521 N/B Ratio 1.57 >=0.3 OPIATE ANTAGONIST ++POSITIVE++ Naloxone >1220 Testing Threshold: buprenorphine, 1.0 ng/mL norbuprenorphine, 5.0 ng/mL naloxone, 10 ng/mL This test was developed and its performance characteristics determined by [employer]. It has not been cleared or approved by the Food and Drug Administration. 12 Panel Urine Drug Screen Reviewed date:08/13/2024 01:27:03 PM Interpretation: Performing Lab: Notes/Report: THC neg RIVAS neg MOP (OPI) neg AMP neg MET neg BAR neg BZO neg MDMA neg MTD neg OXY neg PCP neg BUP POS PDF Report Reviewed date:11/20/2024 09:36:24 AM Interpretation: Performing Lab:[facility], [address] [place] [address], Phone - [phone], [facility]/Report: PDF Report1 LCLS 12 Panel Urine Drug Screen Reviewed date:03/12/2024 02:59:31 PM Interpretation: Performing Lab: Notes/Report: THC neg RIAVS POS MOP (OPI) neg AMP neg MET [...] Duration) Notes Start Date End Date Status Peggy Ellipta 100-62.5-25 MCG/ACT 1 puff Inhalation Once a day; Duration: 30 days Active Cyanocobalamin 1000 MCG 1 tablet Orally Once a day; Duration: 30 days 11/26/2024 Active Ipratropium-Albutero l 0.5-2.5 (3) MG/3ML Inhalation; Duration: 1 Days Active Lasix 40 MG 1 tablet Orally Once a day Hoang Ordoñez Active Doxepin HCl 25 MG 1 capsule at bedtime Orally Once a day; Duration: 30 days Active busPIRone HCl 10 MG 1 tablet Orally Twice a day; Duration: 30 days Active Vitamin B-1 100 MG 1 tablet Orally Once a day Active Albuterol Sulfate HFA 108 (90 Base) MCG/ACT 1 puff as needed Inhalation every 4 hrs Active Ibuprofen 600 MG 1 tablet with food or milk as needed Orally every 12 hrs Unknown Aspirin 81 81 MG 1 tablet Orally Once a day Active Atorvastatin Calcium 40 MG 1 tablet Orally Once a day Active Nicotine Polacrilex 4 MG 1 piece chew for 30 minutes as needed Mouth/Throat every 1-2 hours; Duration: 30 days As needed for smoking cessation, up to 16 pieces per day 05/01/2024 Active Lopressor 50 MG 1 tablet with food Orally Twice a day Not-Taking Buprenorphine HCl-Naloxone HCl 12-3 MG 1 film under the tongue and allow to dissolve Sublingual three times daily 11/07/2024 Active Spironolactone 25 MG 1 tablet Orally Once a day; Duration: 30 day(s) Active Social History Tobacco Use: Social History Observation Description Date Details (start date - stop date) Former Smoker NA - 07/20/2024 Sex Assigned At : Social History Observation [...] 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 Stress is when someone feels tense, nervous, anxious, or can\t sleep at night because their mind is troubled Somewhat In the past year have you sp ent more than 2 nights in a row in a shelter, residential, fdc center, or juvenile correctional facility? No Are you a refugee? No What country are you from? [place] Do you feel physically and e motionally safe where you currently live? Yes In the past year, have you b een afraid of your partner or ex-partner? No PRAPARE Score: 6 Tobacco Control (Standard) Question Answer Notes Tobacco use: Former smoker When did you stop smoking? 07/20/2024 How long has it been since you last smoked? 1-3 months Problems Problem Type SNOMED Code ICD Code Onset Dates Problem Status W/U Status Risk Notes Problem Tobacco user (908522669) Nicotine dependence, unspecified, uncomplicated (F17.200) Active confirmed Problem Dependence on supplemental oxygen (014629305629) Dependence on supplemental oxygen (Z99.81) Active confirmed Problem Insomnia (627381724) Insomnia (G47.00) Active confirmed Problem Anxiety (77516801) Anxiety (F41.9) Active confirmed Problem COPD - Chronic obstructive pulmonary disease (71715030) COPD (chronic obstructive pulmonary disease) (J44.9) Active confirmed Problem Overweight (514980765) Over weight (E66.3) Active confirmed Problem Ethanol abuse (32097300) ETOH abuse (F10.10) Active confirmed Problem Congestive heart failure (90671848) Congestive heart failure (I50.9) Active confirmed Problem Alcohol use disorder (4653141277) Alcohol use disorder (F10.99) Active confirmed Problem Obesity (983697317) Obesity (BMI 30-39.9) (E66.9) Active confirmed Problem Dependence on supplemental oxygen (003550194050) Oxygen dependent (Z99.81) Active confirmed Problem Tobacco use (321498168) Tobacco use disorder (F17.200) Active confirmed Problem Cigarette smoker (57088279) Cigarette smoker (F17.210) Active confirmed Problem Acute exacerbation of chronic obstructive airways disease (237716532) COPD with exacerbation (J44.1) Active confirmed Problem Opioid use disorder (3727019795) Opioid use disorder (F11.99) Active confirmed Problem Opioid use disorder (6955336312) Opioid use disorder (F11.90) Active confirmed Vital Signs Heart Rate 106 /min 11/26/2024 Patient oxygen was checked twice, first check was 84, after some oxygen increase by patient, RMA rechecked at 85, provider notified Temperature 97.8 degrees Fahrenheit 11/26/2024 Nai ent oxygen was checked twice, first check was 84, after some oxygen increase by patient, RMA rechecked at 85, provider notified Respiratory Rate 22 /min 11/26/2024 Patient oxy gen was checked twice, first check was 84, after some oxygen increase by patient, RMA rechecked at 85, provider notified Oximetry 84 % 11/26/2024 Patient oxygen was checked twice, first check was 84, after some oxygen increase by patient, RMA rechecked at 85, provider notified Blood pressure diastolic 88 mm Hg 11/26/2024 Pat ient oxygen was checked twice, first check was 84, after some oxygen increase by patient, RMA rechecked at 85, provider notified Height 70 in 11/26/2024 Patient oxygen was checked twice, first check was 84, after some oxygen increase by patient, RMA rechecked at 85, provider notified Blood pressure systolic 136 mm Hg 11/26/2024 Nai ent oxygen was checked twice, first check was 84, after some oxygen increase by patient, RMA rechecked at 85, provider notified Weight 278.4 lbs 11/26/2024 Patient oxygen was checked twice, first check was 84, after some oxygen increase by patient, RMA rechecked at 85, provider notified BMI 39.94 kg/m2 11/26/2024 Patient oxygen was checked twice, first check was 84, after some oxygen increase by patient, RMA rechecked at 85, provider notified Encounters Encounter Location Date Provider Diagnosis [address] [address] 12/22/2023 Celestine Powers Opioid use disorder F11.90 ; Opioid use disorder F11.99 and Nicotine dependence, unspecified, uncomplicated F17.[address] [address] 03/12/2024 Arabella Szlufik Opioid use disorder F11.90 ; Obesity (BMI 30-39.9) E66.9 ; Nicotine dependence, unspecified, uncomplicated F17.200 and Nutritional counseling Z71.[address] [address] 04/06/2024 Joel Freedman Opioid use disorder F11.90 ; COPD, moderate J44.9 ; Insomnia G47.00 ; Obesity (BMI 30-39.9) E66.9 ; Nutritional counseling Z71.3 and Nicotine dependence, unspecified, uncomplicated F17.[address] [address] 05/01/2024 Arabella Szlufik Opioid use disorder F11.90 ; Nicotine dependence, unspecified, uncomplicated F17.200 and Nutritional counseling Z71.[address] [address] 06/08/2024 Roney Zurita Opioid use disorder F11.99 and Obesity (BMI 30-39.9) E66.[address] [address] 07/06/2024 Arabella Szlufik Opioid use disorder F11.90 and Nutritional counseling Z71.[address] [place] [address] 08/13/2024 Francesca Sandoval Opioid use disorder F11.99 and Nicotine dependence, unspecified, uncomplicated F17.[address] [address] 10/09/2024 Arabella Ky Opioid use disorder F11.99 and Over weight E66.[address] [place] [address] 11/07/2024 Arabella Lisalufihossein Opioid use disorder F11.99 and Over weight E66.3 [facility] [address] [facility] [place] [address] 11/26/2024 Celestine Powers Congestive heart failure I50.9 ; COPD (chronic obstructive pulmonary disease) J44.9 ; Opioid use disorder F11.99 ; Alcohol use disorder F10.99 ; Colon cancer screening Z12.11 ; Vitamin B12 deficiency E53.8 ; Lipid screening Z13.220 ; Exposure to potential infection Z20.9 ; Cigarette smoker F17.210 ; Respiratory failure, unspecified with hypoxia J96.91 ; Oxygen dependent Z99.81 ; Dependence on supplemental oxygen Z99.81 ; Anxiety F41.9 and Impaired glucose tolerance R73.[address] [place] [address] 12/22/2023 Roney Zurita COPD, moderate J44.9 and Opioid use disorder F11.[address] [address] 03/02/2024 Celestine Powers [facility] [place] [address] 06/08/2024 Rnoey Zurita Insomnia G47.[address] [address] 11/07/2024 Celestine Powers Insomnia G47.[address] [place] [address] 11/26/2024 Roney Zurita Insomnia G47.00 Assessments Encounter Date Diagnosis (ICD Code) Assessment Notes Treatment Notes Treatment Clinical Notes Section Notes 05/01/2024 Nicotine dependence, unspecified, uncomplicated (ICD-10 - F17.200) Discussed risks of e-cigarettes and cigarettes. Discussed dangers of smoking while on oxygen. Patient requesting nicotine gum, declines patches. Discussed plan of NRT to promote cessation of both cigarettes and e-cigarettes. 05/01/2024 Opioid use disorder (ICD-10 - F11.90) 07/06/2024 Opioid use disorder (ICD-10 - F11.90) 08/13/2024 Nicotine dependence, unspecified, uncomplicated (ICD-10 - F17.200) 08/13/2024 Opioid use disorder (ICD-10 - F11.99) 10/09/2024 Over weight (ICD-10 - E66.3) 10/09/2024 Opioid use disorder (ICD-10 - F11.99) 11/26/2024 Insomnia (ICD-10 - G47.00) 11/26/2024 COPD (chronic obstructive pulmonary disease) (ICD-10 - J44.9) GORGE SIGNED FOR DR. ARMANDO AND ALEC 11/26/2024 Congestive heart failure (ICD-10 - I50.9) DISCUSSED AVOIDING CURED MEATS 11/07/2024 Insomnia (ICD-10 - G47.00) 11/07/2024 Over weight (ICD-10 - E66.3) 11/07/2024 Opioid use disorder (ICD-10 - F11.99) 06/08/2024 Insomnia (ICD-10 - G47.00) 06/08/2024 Obesity (BMI 30-39.9) (ICD-10 - E66.9) 06/08/2024 Opioid use disorder (ICD-10 - F11.99) 04/06/2024 [...] Opioid use disorder (ICD-10 - F11.90) 12/22/2023 Opioid use disorder (ICD-10 - F11.99) 03/12/2024 Nicotine dependence, unspecified, uncomplicated (ICD-10 - F17.200) 04/06/2024 Insomnia (ICD-10 - G47.00) 11/26/2024 Opioid use disorder (ICD-10 - F11.99) 07/06/2024 Nutritional counseling (ICD-10 - Z71.3) 05/01/2024 Nutritional counseling (ICD-10 - Z71.3) 11/26/2024 Alcohol use disorder (ICD-10 - F10.99) 04/06/2024 Obesity (BMI 30-39.9) (ICD-10 - E66.9) 03/12/2024 Nutritional counseling (ICD-10 - Z71.3) 12/22/2023 Nicotine dependence, unspecified, uncomplicated (ICD-10 - F17.200) 04/06/2024 Nutritional counseling (ICD-10 - Z71.3) 11/26/2024 Colon cancer screening (ICD-10 - Z12.11) 11/26/2024 Vitamin B12 deficiency (ICD-10 - E53.8) 04/06/2024 Nicotine dependence, unspecified, uncomplicated (ICD-10 - F17.200) 11/26/2024 Lipid screening (ICD-10 - Z13.220) 11/26/2024 Exposure to potential infection (ICD-10 - Z20.9) 11/26/2024 Cigarette smoker (ICD-10 - F17.210) 11/26/2024 Respiratory failure, unspecified with hypoxia (ICD-10 - J96.91) 11/26/2024 Oxygen dependent (ICD-10 - Z99.81) 11/26/2024 Dependence on supplemental oxygen (ICD-10 - Z99.81) 11/26/2024 Anxiety (ICD-10 - F41.9) 11/26/2024 Impaired glucose tolerance (ICD-10 - R73.02) 12/22/2023 Other GORGE SIGNED FOR HOSPITAL RECORDS [...] may self-administer their own oral medications per [facility] Protocol. 08/13/2024 Other Patient agrees to take medication as prescribed. Discussed medication side effects, adverse effects, risks, benefits, as well as interactions. Encouraged non-use of opioids. Encouraged participation in recovery groups. Patient may contact office with questions or concerns. 10/09/2024 Other Patient agrees to take medication as [...] may self-administer their own oral medications per [facility] Protocol. 11/07/2024 Other Increased risk of MAGAZINE FEEDER/respiratory depression/apnea with combination of benzos and buprenorphine, particularly in setting of respiratory disease. Strongly discourage use. Patient agrees to take medication as prescribed. [...] may self-administer their own oral medications per [facility] Protocol. Plan Of Treatment No Information Insurance Providers Payer Name Payer Address Payer Phone Subscriber Number Group Number Insured Name Patient Relationship to Insured Coverage Start Date Coverage End Date [facility] Attn Claims Department [address] [place] [address] [phone] [id number] Ozzy Ch Self - patient is the insured 4 MEDICAID [address] [place] [address] [id number] Ozzy Ch Self - patient is the insured 4 4 [facility] Attn Claims Department [address] [place] [address] [phone] [id number] Ozzy hC Self - patient is the insured 3 Medical (General) History Medical History History ICD Code ETOH abuse Opioid use disorder HTN Surgical History Surgery Date(Month/Year) Hospitalization History Reason Date(Month/Year) 07/2021 alcohol & fentanyl w/d 07/2021 knee injury - [facility] 05/01/2021 pneumonia 2022 spiked drink 11/2023 coma-[facility] 12/2023 Pneumonia 09/2024
--- OUTSIDE RECORDS SUMMARY | 2024-12-03 10:04 | XMS_ITS | Clinical Summary ---
Author Organization [facility] Address [address] [place] [address] Care Team Providers Care Cloth Printer Helper Name Role Phone Emanuel Nguyen MD Primary Care Provider [phone] Michael Flanagan MD Unavailable [phone] Allergies No known active allergies Medications aspirin 81 MG chewable tablet Chew 81 mg by mouth daily. Active ibuprofen 800 MG tablet Take 800 mg by mouth every 8 (eight) hours as needed for Pain. Active lisinopril-hydro chlorothiazide 20-12.5 MG tablet Take 1 tablet by mouth daily. 60 tablet 03/10/2018 Active furosemide 40 MG tablet Take 40 mg by mouth daily as needed. Active metoprolol succinate ER 25 MG 24 hr tablet Take 25 mg by mouth daily. Active Active Problems Problem Noted Date Diagnosed Date Cellulitis 08/18/2019 Hypertension 03/09/2018 Assessment & Plan (03/10/2018 7:33 AM POLE MAKER): Chronic, stable. - Continue home Lisinopril-HCTZ 20-12.5 PO daily HLD (hyperlipidemia) 03/09/2018 Assessment & Plan (03/10/2018 7:32 AM POLE MAKER): Chronic, lipids on admission. - Continue home statin - Obtain hbA1c Respiratory failure ([facility]/HCC HHS/HCC) 03/09/2018 Assessment & Plan (03/10/2018 7:30 AM POLE MAKER): Acute, stable and resolved this morning. Admitted with SpO2 down to 80's on RA. Associated 2+ pretibial pitting edema and expiratory wheezes with crackles in bilateral lower lung merchant on pulmonary examination, suspicious for new diagnosis of CHF. BNP WNL. Also has smoking history so may have new diagnosis of COPD with acute exacerbation. D-dimer elevated, CTA negative for PE. - Continuous CR monitoring with pulse ox on tele - F/u Echo - Continue IV Lasix 20 mg daily - Strict I's and O's and daily weights - Prednisone 40mg (05/23) - 1g Rocephin IV q24hrs (05/25), transition to Omnicef when ready to DC - Scheduled duonebs q4hrs - Medically optimize when more clear CHF vs COPD diagnoses made Cellulitis of left lower extremity 03/09/2018 Assessment & Plan (03/10/2018 7:31 AM POLE MAKER): Non-purulent, acute. - 1 g IV Rocephin (05/25) provides adequate coverage, transition to Omnicef on DC - Follow-up blood cultures - Follow-up CBC D-dimer, elevated 03/09/2018 Assessment & Plan (03/09/2018 11:00 PM POLE MAKER): Patient presented with bilateral lower extremity swelling with area of erythema on LLE. Patient also with new oxygen requirement and tachycardic. Well's Score 4.5 so D-dimer was checked and found to be elevated to 772. - Stat CTA to rule out acute PE; negative - Bilateral LE venous dopplers to rule out DVT - If positive will initiate therapeutic anticoagulation Alcohol abuse 03/09/2018 Assessment & Plan (03/09/2018 10:35 PM POLE MAKER): History of alcohol use, self reported 4-5 shots of fireball whiskey a night. This is half of his normal rate of drinking. No signs of withdrawal at this time: However patient was drowsy during interview. - Ordered CIWA protocol -Discussed with patient in regards to alcohol cessation. Social History Tobacco Use Types Packs/Day Years Used Date Smoking Tobacco: Every Day Cigarettes Smokeless Tobacco: Never Alcohol Use Standard Drinks/Week Comments Yes 0 (1 standard drink = 0.6 oz pur e alcohol) 5-6 shots a day Sex and Gender Information Value Date Recorded Sex Assigned at Not on file Legal Sex Male 6:13 PM POLE MAKER Gender Identity Not on file Sexual Orientation Not on file Last Filed Vital Signs Vital Sign Reading Time Taken Comments Blood Pressure 143/84 08/18/2019 5:02 AM CDT Pulse 97 08/18/2019 5:02 AM CDT Temperature 36.6 C (97.8 F) 08/18/2019 5:02 AM CDT Respiratory Rate 18 08/18/2019 5:02 AM CDT Oxygen Saturation 95% 08/18/2019 5:02 AM CDT Inhaled Oxygen Concentration - - Weight 110.3 kg (243 lb 2.7 oz) 08/18/2019 5:02 AM CDT Height 182.9 cm (6') 08/18/2019 12:24 AM CDT Body Mass Index 32.98 08/18/2019 12:24 AM CDT Plan of Treatment Health Maintenance Due Date Last Done Comments Colorectal Cancer Screening Colonoscopy (10 Years) 1958 Hepatitis C 1976 DTaP, Tdap and Td Vaccines ( 1 - Tdap) 1977 Pneumococcal Vaccine: 50+ Ye ars (1 of 2 - PCV) 1977 Zoster Vaccines (1 of 2) 2008 COVID-19 Vaccine (1 - 2023-2 5 season) 2023 RSV Immunization or 60+ Years (1 - 1-dose 75+ series) 2033 Meningococcal B Vaccine Aged Out No l onger eligible based on patient's age to complete this topic Meningococcal Vaccine Aged Out No augie lisa eligible based on patient's age to complete this topic RSV Immunizations Under 20 Months Aged Out No longer eligible based on patient's age to complete this topic Insurance [employer] Advance Directives Documents on File Type Date Recorded 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 Advance Directives and Living Will 03/11/2018 11:18 AM 03-10-18 POA FOR HEALTHCARE * DNR (Latest Code Status on File) Date Activated Date Inactivated Comments 08/18/2019 1:51 AM 08/18/2019 12:22 PM * Full Code Date Activated Date Inactivated Comments 03/09/2018 10:17 PM 03/10/2018 5:23 PM Care Teams Cloth Printer Helper Relationship Specialty Start Date End Date Emanuel Nguyen MD [address] [facility] [address] [place] [address] PCP - General FAMILY PRACTICE 04/03/18 Michael Flanagan MD 3 [facility] [address] [place] [address] [place] Punch Press Operator Helper CARDIOVASCULAR DISEASE 04/20/18
--- NOTE | 2024-12-03 14:13 | P.PCNSIX_ITS ---
Six Minute Walk Procedure Procedure Performed Pulmonary Stress Test (6 min walk) Six Minute Walk Six Minute Walk: This is a 6 minute walk test. The test was performed and interpreted in accordance with the 2014 ERS/ATS task force guidelines. Of note, patient walked on home dose of 4 L nasal cannula with personal wheeled walker for 2-3 minutes and then stopped due to pain and shortness of breath. Findings: The patient's resting 4 L nasal cannula oxygen saturation measured b y pulse oximetry was 93%, the heart rate was 108 bpm, and the modified Bill dyspnea score was 3. Patient ambulated for 76 meters and oxygen saturation remained 91%. At the end of the study the heart rate was 126 bpm and the modified Bill dyspnea score was 5. The patient did not have desaturations on 4 L nasal cannula at rest or with ambulation. There are no prior studies for comparison.
--- NOTE | 2024-12-03 14:18 | WPDPFTINT ---
PFT Procedure Performed PFT Procedure Performed Spirometry with Pre/Post Bronchodilator Plethysmography (Lung Vol) Flow Vol Loop PFT Interpretation This is a pulmonary function test with pre and post-bronchodilator spirometry, and plethysmography. The test was performed and results interpreted in accordance with the 2019 and 2005 ATS/ERS Task Force guidelines respectively using the Global Lung Function Initiative-2012 reference equations. Patient demonstrated good effort and cooperation. Reproducibility criteria were met. The quality of the pre bronchodilator spirometry maneuver was Grade A and post bronchodilator spirometry maneuver was Grade B. of note, patient was then able to complete the inspiratory limb on spirometry. Unable to complete DLCO. Only able to perform 1 acceptable lung volume trial. Findings: Spirometry: There is decreased maximal expiratory airflow at all lung volumes with a concave expiratory flow tracing. The contour of the inspiratory flow tracing was non-existent or truncated. The pre bronchodilator FVC is 2.39 L, 51% predicted. The pre bronchodilator FEV1 is 0.99 L, 28% predicted. The pre bronchodilator FEV1: FVC ratio is 41%. The post bronchodilator FVC is 2.44 L, representing a 2% increase. The post bronchodilator FEV1 is 1.01 L, representing a 2% increase. The post bronchodilator FEV1: FVC ratio is 41%. Plethysmography: The total lung capacity is 8.88 L, 120% predicted. The functional residual capacity is 7.22 L, 183% predicted. The residual volume is 5.77 L, 233% predicted. The residual volume: Total lung capacity ratio 65%. In comparison to previous pulmonary function testing on 06/09/2022 the post bronchodilator FVC has decreased from 3.48 L to 2.44 L. The post bronchodilator FEV1 is decreased from 1.63 L to 1.01 L. The total lung capacity has increased from 7.18 L to 8.88 L. The functional residual capacity has increased from 4.78 L to 7.22 L. The residual volume has increased from 4.02 L to 5.77 L. Impression: There is a very severe obstructive abnormality. There is no significant improvement after inhaling a single dose of albuterol. The increase in residual volume to total lung volume ratio is consistent with hyperinflation from an obstructive abnormality. In comparison to previous pulmonary function testing there has been a greater than anticipated time dependent decrease in the FVC and FEV1. There has been a greater than anticipated time dependent increase in the total lung capacity, functional residual capacity and residual volume. Clinical correlation is recommended.
== END 2024-12-03 09:18 | disposition home or self-care (01) ==
LOC: ANHPFT 09:18
PROVIDERS: PCP Internal Medicine Infectious Disease; Visit Provider Internal Medicine Pulmonary Disease
DX: J44.9 Chronic obstructive pulmonary disease, unspecified (principal); R94.2 Abnormal results of pulmonary function studies
CPT/HCPCS: 94060; 94618; 94726

== ENCOUNTER 2025-01-29 16:25 | Emergency (ER) | payer OTHER, SELFPAY ==
--- NOTE | ~2025-01-29 | XR_ITS ---
XR chest 1V portable INDICATION:SOB . REFERENCE: None FINDINGS: A single AP of the chest demonstrates normal heart size. Groundglass and interstitial opacities are present bilaterally. There is no evidence of pneumothorax or pleural effusion. IMPRESSION: Pulmonary congestion. Reviewed, dictated and finalized at location S. IMPRESSION: Pulmonary congestion.
--- NOTE | ~2025-01-29 | US_ITS ---
US venous doppler LE LT INDICATION: Left lower extremity pain and swelling. COMPARISON: None. TECHNIQUE: The deep veins of the left lower extremity were evaluated with Duplex Doppler, color Doppler, and high-resolution B-mode sonography. Evaluated veins include the common femoral, femoral, and popliteal veins. The calf veins were also evaluated. Compression and augmentation maneuvers were performed. FINDINGS: The deep veins of the left lower extremity were compressible and demonstrated spontaneous phasic waveforms with an appropriate response to augmentation maneuvers. The visualized calf veins were patent. The left posterior tibial peroneal, soleus and lesser saphenous vein was not evaluated. IMPRESSION: There was no sonographic evidence of deep vein thrombosis in the left lower extremity. Reviewed, dictated and finalized at location S. IMPRESSION: There was no sonographic evidence of deep vein thrombosis in the left lower ext remity.
--- NOTE | ~2025-01-29 | XR_ITS ---
XR tibia fibula LT 2V INDICATION: L lower extremity edema, recently opened wound . COMPARISON: None. FINDINGS: Frontal and lateral views of the left tibia and fibula demonstrate no acute fracture or dislocation. IMPRESSION: Radiographic examination of the left tibia and fibula demonstrates no acute fracture or dislocation. Reviewed, dictated and finalized at location S. IMPRESSION: Radiographic examination of the left tibia and fibula demonstrates no acute fra cture or dislocation.
--- NOTE | 2025-01-29 16:32 | ECG_ITS ---
Test Date: 2025-01-29 16:37:03 Measurements Intervals [place] Rate: 109 P: 56 ME: 190 QRS: 19 QRSD: 113 T: 47 QT: 337 QTc: 454 Interpretive Statements SINUS TACHYCARDIA INCOMPLETE RIGHT BUNDLE BRANCH BLOCK CONSIDER INFERIOR INFARCT, AGE INDETERMINATE BASELINE WANDER- I, II, III, AVF, V5 ABNORMAL ECG Compared to ECG 09/29/2024 00:02:55 No significant changes Electronically Signed On 01-29-2025 16:50:18 CDT by Dionicio Danielle D.O.
[2025-01-29 16:33] VITALS: BP 144/67; PULSE 113; RESP 18; TEMP 36.5; O2SAT 91
[2025-01-29 16:35] VITALS: BP 125/66; PULSE 106; RESP 20; TEMP 36.9; O2SAT 93
[2025-01-29 16:57] VITALS: PULSE 108; O2SAT 93
--- NOTE | 2025-01-29 16:57 | PC.NURSE ---
Pt gave VORB consent to give daughter, Yane, updates regarding his tx and condition Yane [phone]
[2025-01-29 17:00] VITALS: BP 113/63; PULSE 104; RESP 16; O2SAT 94
[2025-01-29 17:07] LABS: Hematocrit 36.8 % (42.0-52.0); Hemoglobin 11.6 g/dL (14.0-18.0); Immature Granulocyte Percent A 0.5 % (0-0.5); Lymphocytes Absolute Auto 1.66 K/mm3 (0.9-3.2); Mean Corpuscular HGB Conc 31.5 g/dl (32-36); Mean Corpuscular Hemoglobin 28.7 pg (26-34); Mean Corpuscular Volume 91.1 fl (80-100); Nucleated Red Blood Cells Absolute Auto 0.000 K/mm3 (0.0-0.012); Nucleated Red Blood Cells Perc 0.0 % (0.0-0.2); Platelet Count Result 261 k/mm3 (150-375); Red Blood Count 4.04 M/mm3 (4.6-6.20); White Blood Count 8.2 K/mm3 (4.5-10.0)
[2025-01-29 17:26] LABS: Alanine Aminotransferase 13 U/L (6-50); Albumin Level 4.1 g/dL (3.5-5.1); Alkaline Phosphatase 88 U/L (38-126); Anion Gap 10 mmol/L (4-12); Aspartate Amino Transferase 21 U/L (17-59); Bilirubin,Total 0.4 mg/dL (0.2-1.3); Blood Urea Nitrogen 33 mg/dL (9-20); Calcium 9.0 mg/dL (8.4-10.2); Carbon Dioxide 28 mmol/L (22-30); Chloride 95 mmol/L (98-107); Estimated CRCL calculation 100 ml/min; Estimated Glomerular Filt Rate > 60; Glucose 171 mg/dL (65-110); Potassium 3.5 mmol/L (3.4-5.0); Sodium 133 mmol/L (137-145); Total Protein 8.5 g/dL (6.3-8.2)
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
--- OUTSIDE RECORDS SUMMARY | 2025-01-29 17:37 | XMS_ITS | Clinical Summary ---
Author Organization [facility] [address] Address [address] [place] [address] Care Team Providers Care Volleyball Assistant Coach Name Role Phone Tomeka Knight Primary Care [...] (05/14/2022): Added automatically from request for surgery [id number] Obesity (BMI 30.0-34.9) 04/30/2022 Assessment & Plan (04/30/2022 4:49 PM LEGAL MEDIATOR): Diet and exercise. Right knee pain 04/28/2022 Assessment & Plan (04/29/2022 1:57 PM LEGAL MEDIATOR): Chronic. Right knee MRI 02/2022 demonstrated fracture of right medial femoral condyle, tear of right medial meniscus, and effusion/synovitis. Ortho recommended non op, WBAT. Has not followed up with ortho after discharge. -Encourage ortho follow up -Voltaren gel -APAP -seen by PT/OT; will discharge with walker and home therapy Assessment & Plan (04/28/2022 1:14 AM LEGAL MEDIATOR): Chronic. Right knee MRI 02/2022 demonstrated fracture of right medial femoral condyle, tear of right medial meniscus, and effusion/synovitis. Ortho recommended non op, WBAT. Has not followed up with ortho after discharge. -Encourage ortho follow up -Voltaren gel -APAP -PT/OT Alcohol abuse 04/28/2022 Assessment & Plan (04/28/2022 2:18 PM LEGAL MEDIATOR): Drinks 2- 3 shots before bed. No active withdrawals. -Thiamine, folate -Encourage Cessation -Monitor for withdrawal Assessment & Plan (04/28/2022 1:15 AM LEGAL MEDIATOR): Drinks 2- 3 shots before bed. No active withdrawals. -Thiamine, folate -Encourage Cessation -Monitor for withdrawal Elevated alkaline phosphatase level 04/28/2022 Assessment & Plan (04/30/2022 4:09 PM LEGAL MEDIATOR): Unclear etiology. HCV positive. GGTP elevated. Intra and extrahepatic dilatation noted on US; MRI to be performed later this evening. Assessment & Plan (04/28/2022 1:15 AM LEGAL MEDIATOR): Unclear etiology. HCV positive. -Check GGT and Liver ultrasound for now. HCV (hepatitis C virus) 04/28/2022 Assessment & Plan (04/28/2022 2:20 PM LEGAL MEDIATOR): Chronic and untreated. Missed ID clinic appointment 04/20/22; stated getting a ride is the problem. -Genotype pending. -Needs outpatient follow up. Assessment & Plan (04/28/2022 1:16 AM LEGAL MEDIATOR): Chronic and untreated. Missed ID clinic appointment 04/20/22. -Needs outpatient follow up. Acute on chronic diastolic heart failure 023 Assessment & Plan (04/29/2022 1:54 PM LEGAL MEDIATOR): TTE with normal EF. Previously g1DD and increased RVSP. -S/P 60mg IV Lasix in ED, then 40mg IV BID daily -Will change to Lasix 40mg po 04/30 -Continue metoprolol, statin, ASA Assessment & Plan (04/28/2022 1:17 AM LEGAL MEDIATOR): TTE with normal EF. Previously g1DD and increased RVSP. Hypervolemic on examination today. -S/P 60mg IV Lasix in ED, continue 40mg IV BID daily -Monitor electrolytes and replete -Continue metoprolol, statin, ASA Venous stasis dermatitis of both lower extremiti es 04/27/2022 Assessment & Plan (04/29/2022 1:54 PM LEGAL MEDIATOR): Chronic venous stasis dermatitis. No infectious symptoms, [...] following. Assessment & Plan (04/28/2022 1:10 AM LEGAL MEDIATOR): Chronic venous stasis dermatitis. No infectious symptoms, normal lactate, no fevers, and no WBC making infection less concerning though given ulcer on left lateral leg, cannot rule out superimposed infection. Also has prior dopplers demonstrating chronic DVT at the level of the popliteal vein in the left. Post thrombotic changes could be contributing though bilateral symptoms. Discussed with vascular bakery worker conveyor line about AC in chronic DVTs and no [...] 09/20/2020 Assessment & Plan (04/30/2022 4:08 PM LEGAL MEDIATOR): Elevated total protein thought to be related to HCV. -Check SPEP/UPEP given alk phos elevation. Immunofixation unremarkable. UPEP pending. -Needs to follow up with ID for HCV treatment. Assessment & Plan (04/28/2022 1:13 AM LEGAL MEDIATOR): Elevatedt total protein thought to be related [...] 08/22/2019 Assessment & Plan (04/30/2022 4:09 PM LEGAL MEDIATOR): Smokes @ 1ppd -Duonebs for now -Smoking cessation; wants nicotine patch in the hospital; states he has some at home and does not need any prescribed. Assessment & Plan (04/28/2022 1:11 AM LEGAL MEDIATOR): Wheezing bilaterally. Denies SOB. Still smoking. Not [...] abuse Assessment & Plan (04/30/2022 4:07 PM LEGAL MEDIATOR): Active use of Fentanyl. No longer followed in clinic for Suboxone; was being followed at [facility] in [place] up until 2mo ago per pt. -Encourage cessation -Seen for substance use. Pt is currently on patch. When discussing f/u at the [place] [facility], he reports that he plans on quitting on his own. On further discussion, he agreed to an appointment - he will be seeing them on Tuesday. Assessment & Plan (04/28/2022 1:12 AM LEGAL MEDIATOR): Active use of Fentanyl. No longer followed [...] Assessment & Plan (08/22/2019 5:28 AM CDT): Kirk most likely to be drug-induced reaction. No [...] Date Comments COPD (chronic obstructive pulmonary disease) HTN (hypertension) Cellulitis Family History Medical History [...] pur e alcohol) occassionally Social Connection and Isolation Panel Answer Date Recorded In a typical week, how many times do you talk on the phone with family, friends, or neighbors? More than three times a week 02/24/2022 How often do you get togethe r with friends or relatives? More than three times a week 02/24/2022 How often do you attend chur or yarsanism services? Never 02/24/2022 Do you belong to any clubs o r organizations such as latter-day groups, unions, fraternal or athletic groups, or [...] on file Legal Sex Male 6:41 PM LEGAL MEDIATOR Gender Identity Not on file Sexual Orientation [...] (258 lb 6.4 oz) 06/04/2022 9:57 AM LEGAL MEDIATOR Height 182.9 cm (6' 0.01) 06/04/2022 9:57 AM CS T Body Mass Index 35.04 06/04/2022 9:57 AM LEGAL MEDIATOR Plan of Treatment Health Maintenance Due Date Last Done Comments Colon Cancer Screening-Colonoscopy 1960 Depression Screening 1960 Prostate Cancer Screening-PSA 1960 DTaP/Tdap/Td Vaccine (1 - Tdap) 1969 Pneumococcal vaccine 65+ (1 of 2 - PCV) 1977 Zoster Vaccine (1 of 2) 2008 Abdominal Aortic Aneurysm (A AA) Screen 2023 09/06/2020 Well Visit 65+ 2023 Fall Risk Assessment 04/30/2023 04/30/2022 Influenza Vaccine (#1) 2024 02/22/2022, 2017 Hepatitis C Screening Completed 07/07/2022 , 07/06/2022, 06/10/2022, Additional history exists Procedures Procedure Name Priority Date/Time Associated Diagnosis Comments HEPATITIS C GENOTYPE Routine 06/04/2022 11:06 AM LEGAL MEDIATOR Acute hepatitis C virus infection without hepatic coma CT ABDOMEN PELVIS WO CONTRAST 09/06/2020 12:00 AM CDT from Last 3 Months or Most Recently Relevant to Health Maintenance Results * Hepatitis C genotype (06/04/2022 11:06 AM LEGAL MEDIATOR) HCV genotype TNP [facility] Comment: HCV Genotype, S was cancelled on 06/09/2022 at 16:01; Duplicate test request. Test Performed by: [facility] [address] [place] [address] Statistical Methods Teacher: Harpal Gregory M.D. Ph.D.; CLIA# [id number] Blood 06/04/2022 11:0 6 AM LEGAL MEDIATOR 06/04/2022 1:32 PM LEGAL MEDIATOR Gudelia Singh MD LAB MICROBIOLOGY - GENERAL ORDER TATYANA Final Result [facility] Department [place] [address] * CT Abdomen Pelvis WO Contrast (09/06/2020 12:00 AM CDT) Anatomical Region Laterality Modality Body N/A Computed Tomogra phy 09/06/2020 2:12 PM CDT Narrative 09/06/2020 2:23 PM CDT Patient Name: OZZY CH Ordering Dr: Francesca Zazueta MD D.O.B: 1960 Exam Date: 09/06/20 0000 Age: 60 Sex: Male MR#: [id number] Loc: S220-02 RADIOLOGY REPORT Order #[id number] CT Scan CT Abd/Pelvis WO IV Contrast [...] by Danette Maya TS T: Report ID: [id number] Reading Location: [place] [address] REPORT ELECTRONICALLY SIGNED IN OTHER VENDOR SYSTEM Resulting Agency Comment I Procedure Note Danette Maya MD - 09/06/2020 Patient Name: OZZY CH Dr: Francesca Zazueta MD D.O.B: 1960 Exam Date: 09/06/20 0000 Age: 60 Sex: Male MR#: [id number] Loc: S220-02 RADIOLOGY REPORT Order #[id number] CT Scan CT Abd/Pelvis WO IV Contrast [...] signed by Danette MILLER T: Report ID: [id number] Reading Location: [id number] REPORT ELECTRONICALLY SIGNED IN OTHER VENDOR SYSTEM Francesca Zazueta MD G CT PROCEDUR ES Final Result from Last 3 Months or Most Recently Relevant to Health Maintenance Insurance [facility] Advance Directives For more information, please contact: [phone] * Full Code (Latest Code Status on [...] 5:04 AM 08/22/2019 9:25 PM Care Teams Volleyball Assistant Coach Relationship Specialty Start Date End Date Tomeka Knight PA PCP - General Physician Fastener Technologist 06/28/19
--- OUTSIDE RECORDS SUMMARY | 2025-01-29 17:37 | XMS_ITS | Clinical Summary ---
Author Organization [facility] Address [address] [place] [address] Care Team Providers Care Auto Rebuilder Name Role Phone Emanuel Nguyen MD Primary Care Provider [phone] Michael Flanagan MD Unavailable [phone] Allergies No known active allergies Medications aspirin [...] 03/09/2018 Assessment & Plan (03/10/2018 7:33 AM GENERAL LITHOGRAPHIC WORKER): Chronic, stable. - Continue home Lisinopril-HCTZ 20-12.5 PO daily HLD (hyperlipidemia) 03/09/2018 Assessment & Plan (03/10/2018 7:32 AM GENERAL LITHOGRAPHIC WORKER): Chronic, lipids on admission. - Continue home statin - Obtain hbA1c Respiratory failure 03/09/2018 Assessment & Plan (03/10/2018 7:30 AM GENERAL LITHOGRAPHIC WORKER): Acute, stable and resolved this morning. Admitted [...] 03/09/2018 Assessment & Plan (03/10/2018 7:31 AM GENERAL LITHOGRAPHIC WORKER): Non-purulent, acute. - 1 g IV Rocephin (05/25) provides adequate coverage, transition to Omnicef on DC - Follow-up blood cultures - Follow-up CBC D-dimer, elevated 03/09/2018 Assessment & Plan (03/09/2018 11:00 PM GENERAL LITHOGRAPHIC WORKER): Patient presented with bilateral lower extremity swelling [...] 03/09/2018 Assessment & Plan (03/09/2018 10:35 PM GENERAL LITHOGRAPHIC WORKER): History of alcohol use, self reported 4-5 [...] on file Legal Sex Male 6:13 PM GENERAL LITHOGRAPHIC WORKER Gender Identity Not on file Sexual Orientation [...] COVID-19 Vaccine (1 - 2023-2 5 season) 2024 Influenza Adult (#1) 2025 RSV Immunization or 60+ Years (1 - [...] Documents on File Type Date Recorded Patient Stain Maker Expl anation Advance Directives and Living Will 03/11/2018 11:18 AM 03-10-18 POA FOR HEALTHCARE * DNR (Latest Code Status on File) Date Activated Date Inactivated Comments 08/18/2019 1:51 AM 08/18/2019 12:22 PM * Full Code Date Activated Date Inactivated Comments 03/09/2018 10:17 PM 03/10/2018 5:23 PM Care Teams Auto Rebuilder Relationship Specialty Start Date End Date Emanuel Nguyen MD [address] [facility] [address] [place] [address] PCP - General FAMILY PRACTICE 04/03/18 Michael Flanagan MD [address] [facility] [address] [place] [address] [place] [employer] Raiser CARDIOVASCULAR DISEASE 04/20/18
--- OUTSIDE RECORDS SUMMARY | 2025-01-29 17:37 | XMS_ITS | Patient Health Record ---
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 Name Role Phone Oumarfcoho Hildareyna Primary Care Provider [phone] Celestine Powers Unavailable [phone] Joel Freedman Unavailable [phone] Francesca Sandoval Unavailable [phone] Arabella Mcpherson Unavailable [phone] Allergies No Known Allergies Results Component Value Reference Range Notes 14 Panel Urine Drug Screen Reviewed date:11/07/2024 10:58:29 AM Interpretation: Performing Lab: Notes/Report: THC neg RIVAS neg MOP (OPI) neg AMP neg MET neg BAR neg BZO POS MDMA neg MTD neg OXY neg PCP neg BUP POS TCA POS FTY neg Comprehensive Drug Analysis, Urine Reviewed date:11/20/2024 09:36:24 AM Interpretation: Performing Lab:[facility], [address] [facility], Phone - [phone], Director - Quinton Notes/Report: Summary Report (Summary) [...] clinical consultation, please call . PDF . 12 Panel Urine Drug Screen Reviewed date:06/08/2024 08:58:42 AM Interpretation: Performing Lab: Notes/Report: THC neg RIVAS neg MOP (OPI) neg AMP neg MET neg BAR neg BZO neg MDMA neg MTD neg OXY neg PCP neg BUP POS 14 Panel Urine Drug Screen Reviewed date:10/09/2024 01:51:44 PM Interpretation: Performing Lab: Notes/Report: THC neg RIVAS neg MOP (OPI) neg AMP neg MET POS BAR neg BZO neg MDMA neg MTD neg OXY neg PCP neg BUP POS TCA POS FTY neg 14 Panel Urine Drug Screen Reviewed date:12/06/2024 01:13:49 PM Interpretation: Performing Lab: Notes/Report: THC neg RIVAS neg MOP (OPI) neg AMP neg MET neg BAR neg BZO neg MDMA neg MTD neg OXY neg PCP neg BUP POS TCA POS FTY neg 14 Panel Urine Drug Screen Reviewed date:01/07/2025 11:48:29 AM Interpretation: Performing Lab: Notes/Report: THC neg RIVAS neg MOP (OPI) neg AMP neg MET neg BAR neg BZO neg MDMA neg MTD neg OXY neg PCP neg BUP POS TCA POS FTY neg 12 Panel Urine Drug Screen Reviewed date:03/12/2024 [...] Urine Reviewed date:05/08/2024 09:28:50 AM Interpretation: Performing Lab:[facility], [address] [place] [address], Phone - [phone], Director - Quinton Notes/Report: Creatinine 82 REFERENCE [...] Report Reviewed date:11/20/2024 09:36:24 AM Interpretation: Performing Lab:[facility] [facility] [employer], [address] [facility], Phone - [phone], Director - Quinton Notes/Report: PDF Report1 [facility] Reason For Referral No Information Medications Medication SIG (Take, Route, Frequency, Duration) Notes Start Date End Date Status Albuterol Sulfate HFA 108 (90 Base) MCG/ACT 1 puff as needed Inhalation every 4 hrs Active Vitamin B-1 100 MG 1 tablet Orally Once a day Active Ibuprofen 600 MG 1 tablet with food or milk as needed Orally every 12 hrs Unknown Nicotine Polacrilex 4 MG 1 lozenge as needed Mouth/Throat every 1-2 hours; Duration: 30 days As needed for smoking cessation, up to 16 lozenges per day 05/01/2024 Active Lopressor 50 MG 1 tablet with food Orally Twice a day Not-Taking Buprenorphine HCl-Naloxone HCl 2-0.5 MG 2 tablets under the tongue and allow to dissolve Sublingual 3 times a day 01/07/2025 Active Buprenorphine HCl-Naloxone HCl 8-2 MG 1 tablet under the tongue and allow to dissolve Sublingual 3 times a day 01/07/2025 Active Ipratropium-Albutero l 0.5-2.5 (3) MG/3ML Inhalation; Duration: 1 Days Active Lasix 40 MG 1 tablet Orally Once a day [facility] Active Aspirin 81 81 MG 1 tablet Orally Once a day Active Atorvastatin Calcium 40 MG 1 tablet Orally Once a day Active Trelegy Ellipta 100-62.5-25 MCG/ACT 1 puff Inhalation Once a day; Duration: 30 days Active Doxepin HCl 25 MG 1 capsule at bedtime Orally Once a day; Duration: 30 days Active busPIRone HCl 10 MG 1 tablet Orally Twice a day; Duration: 30 days Active Spironolactone 25 MG 1 tablet Orally Once a day; Duration: 30 day(s) Active Cyanocobalamin 1000 MCG 1 tablet Orally Once a day; Duration: 30 days 11/26/2024 Active Social History Tobacco Use: Social History Observation Description Date Details (start date - stop date) Former Smoker NA - 07/20/2024 Sex Assigned At : Social History Observation Description Sex Assigned At Male [facility] Question Answer Notes Date Completed/Updated: 09/01/2023 What is your current housing situation? I have h ousing Are you worried about losing your housing? No What is the highest level of school that you have finished? High school diploma or GED What is your current work situation? Oth erwise unemployed but not seeking work (ex. 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 Stress is when someone feels tense, nervous, anxious, or can\t sleep at night because their mind is troubled Somewhat In the past year have you sp ent more than 2 nights in a row in a chcf, senior living, penitentiary center, or juvenile correctional facility? No Are [...] W/U Status Risk Notes Problem Tobacco user (813194261) Nicotine dependence, unspecified, uncomplicated (F17.200) Active confirmed Problem Tobacco user (879659413) Nicotine dependence, cigarettes, uncomplicated (F17.210) Active confirmed Problem Dependence on supplemental oxygen (454981082987) Dependence on supplemental oxygen (Z99.81) Active confirmed Problem Insomnia (052861015) Insomnia (G47.00) Active confirmed Problem Anxiety (74761630) Anxiety (F41.9) Active confirmed Problem COPD - Chronic obstructive pulmonary disease (10069708) COPD (chronic obstructive pulmonary disease) (J44.9) Active confirmed Problem Overweight (694269038) Over weight (E66.3) Active confirmed Problem Ethanol abuse (56077531) ETOH abuse (F10.10) Active confirmed Problem Congestive heart failure (47598733) Congestive heart failure (I50.9) Active confirmed Problem Alcohol use disorder (5876280398) Alcohol use disorder (F10.99) Active confirmed Problem Obesity (796431202) Obesity (BMI 30-39.9) (E66.9) Active confirmed Problem Dependence on supplemental oxygen (039426885581) Oxygen dependent (Z99.81) Active confirmed Problem Tobacco use (886437826) Tobacco use disorder (F17.200) Active confirmed Problem Cigarette smoker (36872632) Cigarette smoker (F17.210) Active confirmed Problem Acute exacerbation of chronic obstructive airways disease (914531848) COPD with exacerbation (J44.1) Active confirmed Problem Opioid use disorder (2110042509) Opioid use disorder (F11.99) Active confirmed Problem Opioid use disorder (7514923316) Opioid use disorder (F11.90) Active confirmed Vital Signs Heart Rate 98 /min 01/07/2025 Temperature 97.8 degrees Fahrenheit 11/26/2024 Nai ent oxygen was checked twice, first check was 84, after some oxygen increase by patient, RMA rechecked at 85, provider notified Respiratory Rate 22 /min 01/07/2025 Blood pressure diastolic 80 mm Hg 01/07/2025 Oximetry 77 % 01/07/2025 Height 70in in 01/07/2025 Blood pressure systolic 144 mm Hg 01/07/2025 Weight 277 lbs 01/07/2025 BMI 39.74 kg/m2 01/07/2025 Encounters Encounter Location Date Provider Diagnosis [address] [place] [address] 03/12/2024 Arabella Mcpherson Opioid use disorder F11.90 ; Obesity (BMI 30-39.9) E66.9 ; Nicotine dependence, unspecified, uncomplicated F17.200 and Nutritional counseling Z71.[address] [place] [address] 04/06/2024 Joel Freedman Opioid use disorder F11.90 ; COPD, moderate J44.9 ; Insomnia G47.00 ; Obesity (BMI 30-39.9) E66.9 ; Nutritional counseling Z71.3 and Nicotine dependence, unspecified, uncomplicated F17.[address] [place] [address] 05/01/2024 Arabella Szlufik Opioid use disorder F11.90 ; Nicotine dependence, unspecified, uncomplicated F17.200 and Nutritional counseling Z71.[address] [place] [address] 06/08/2024 Roney Zurita Opioid use disorder F11.99 and Obesity (BMI 30-39.9) E66.[address] [place] [address] 07/06/2024 Arabella Szlufik Opioid use disorder F11.90 and Nutritional counseling Z71.[address] [address] 08/13/2024 Francesca Sandoval Opioid use disorder F11.99 and Nicotine dependence, unspecified, uncomplicated F17.[address] [place] [address] 10/09/2024 Arabella Szlufik Opioid use disorder F11.99 and Over weight E66.[address] [place] [address] 11/07/2024 Arabella Szlufik Opioid use disorder F11.99 and Over weight E66.3 [facility] [address] [place] [address] 11/26/2024 Celestine Powers Congestive heart failure I50.9 [...] Anxiety F41.9 and Impaired glucose tolerance R73.[address] [place] [address] 12/06/2024 Arabella Lisaamador Opioid use disorder F11.99 and Nicotine dependence, cigarettes, uncomplicated F17.210 [facility] [address] [place] [address] 01/07/2025 Francesca Sandoval Opioid use disorder F11.99 and Tobacco use disorder F17.[address] [address] 03/02/2024 Celestine Powers [facility] [address] [place], [place] [address] [place] [address] 06/08/2024 Roney Zurita Insomnia G47.[address] [address] 11/07/2024 Celestine Powers Insomnia G47.[address] [place] [address] 11/26/2024 Roney Zurita Insomnia G47.[address] [address] 01/23/2025 Roney Zurita Assessments Encounter Date Diagnosis (ICD Code) Assessment Notes Treatment Notes Treatment Clinical Notes Section Notes 03/12/2024 Obesity (BMI 30-39.9) (ICD-10 - E66.9) [...] promote cessation of both cigarettes and e-cigarettes. 07/06/2024 Opioid use disorder (ICD-10 - F11.90) 08/13/2024 Nicotine dependence, unspecified, uncomplicated (ICD-10 - F17.200) 08/13/2024 Opioid use disorder (ICD-10 - F11.99) 10/09/2024 Over weight (ICD-10 - E66.3) 10/09/2024 Opioid use disorder (ICD-10 - F11.99) 11/07/2024 Over weight (ICD-10 - E66.3) 11/07/2024 Opioid use disorder (ICD-10 - F11.99) 11/07/2024 Insomnia (ICD-10 - G47.00) 11/26/2024 Insomnia (ICD-10 - G47.00) 05/01/2024 Opioid use disorder (ICD-10 - F11.90) 06/08/2024 Obesity (BMI 30-39.9) (ICD-10 - E66.9) 06/08/2024 Opioid use disorder (ICD-10 - F11.99) 06/08/2024 Insomnia (ICD-10 - G47.00) 11/26/2024 COPD (chronic obstructive pulmonary disease) (ICD-10 - J44.9) GORGE SIGNED FOR DR. ARMANDO AND ALEC 11/26/2024 Congestive heart failure (ICD-10 - I50.9) DISCUSSED AVOIDING CURED MEATS 12/06/2024 Nicotine dependence, cigarettes, uncomplicated (ICD-10 - F17.210) 12/06/2024 Opioid use disorder (ICD-10 - F11.99) 01/07/2025 Tobacco use disorder (ICD-10 - F17.200) 01/07/2025 Opioid use disorder (ICD-10 - F11.99) 11/26/2024 Opioid use disorder (ICD-10 - F11.99) 04/06/2024 Insomnia (ICD-10 - G47.00) 07/06/2024 Nutritional counseling (ICD-10 - Z71.3) 05/01/2024 Nutritional counseling (ICD-10 - Z71.3) 03/12/2024 Nicotine dependence, unspecified, uncomplicated (ICD-10 - F17.200) 03/12/2024 Nutritional counseling (ICD-10 - Z71.3) 04/06/2024 Obesity (BMI 30-39.9) (ICD-10 - E66.9) 11/26/2024 Alcohol use disorder (ICD-10 - F10.99) 04/06/2024 Nutritional counseling (ICD-10 - Z71.3) 11/26/2024 [...] 11/26/2024 Impaired glucose tolerance (ICD-10 - R73.02) 03/12/2024 Other Patient agrees to take medication [...] self-administe r their own oral medications per [facility] Protocol. 08/13/2024 Other Patient agrees to take [...] self-administe r their own oral medications per [facility] Protocol. 11/07/2024 Other Increased risk of EFFICIENCY MINER/respiratory depression/apnea with combination of benzos and buprenorphine, [...] self-administe r their own oral medications per [facility] Protocol. 12/06/2024 Other Patient agrees to take medication as [...] self-administe r their own oral medications per [facility] Protocol. 01/07/2025 Other Patient agrees to take medication as [...] Insured Coverage Start Date Coverage End Date [facility] Attn Claims Department [address] [place] [address] [phone] [id number] Dima Ozzy Self - patient is the insured 4 MEDICAID [address] [place] [address] [id number] Graham Chel Self - patient is the insured 4 [facility] [address] [place] [address] [phone] [id number] Ozzy Ch Self - patient is the insured 3 Medical (General) History Medical History History ICD Code ETOH abuse Opioid use disorder HTN Surgical History Surgery Date(Month/Year) Hospitalization History Reason Date(Month/Year) 07/2021 alcohol & fentanyl w/d 07/2021 Pneumonia 09/2024 [place] 12/2023 spiked drink 11/2023 pneumonia 2022 knee injury - [place] 05/01/2021
[2025-01-29 17:49] LABS: CRP 3.9 mg/dL (<1.0); Magnesium 1.9 mg/dL (1.6-2.3)
--- OUTSIDE RECORDS SUMMARY | 2025-01-29 17:55 | XMS_ITS | Data Portability ---
Author Organization [facility] Address [address] [place] [address] Care Team Providers Care Culinary Manager Name Role Phone TOMEKA MONTELONGO Primary Care Provider [facility] - PULMONOLOGY Pulmonologi Assessment Encounter Date Assessment Date Assessment LastModified by Organization Details LastModified Time 06/11/2024 06/11/2024 I am not willing to prescribe the 25 mg dose of Doxepin for insomnia. Initially, Mr Ch was not forthright with portions of his social history. oajao Not available 06/11/2024 19:41:23 10/26/2024 10/26/2024 I am not willing to prescribe the 25 mg dose of Doxepin for insomnia. Initially, Mr Ch was not forthright with portions of his social history. oajao Not available 10/26/2024 09:36:20 Plan of Treatment Reminders Order Date Submit Date Provider Last Modified By Organization Details Last Modified Time Details Appointments None record ed. Lab HbA1c (hemog lobin A1c), blood 2024 025 EMILY [facility], [address] [facility], [address], [place], [address], 06:16:24 CBC 2024 025 EMILY [facility], [address] [facility] [address], [place], [address], 06:16:22 basic metabo lic 1998 panel, serum or plasma 2024 025 EMILY JARAMILLO, [address], [address], [place], [address], 5 06:16:21 drug screen , urine 2024 025 [email or web address] [facility], [address] [place], [place] [address]sh[address], [address], [place], [address], 5 10:42:38 pro BNP (pro B-type natriu retic peptid e), serum or plasma 2024 025 EMILY [facility], [address] [address], [address], [place], [address], 5 06:25:12 urinal ysis macro (dipst ick) panel, urine 2024 025 EMILY [facility], [facility], [address], [place], [address], 5 08:24:22 CMP, serum or plasma 2024 025 EMILY BULL, [facility] [address], [address], [place], [address], 5 08:24:21 CBC w/ auto diff 2024 025 EMILY [facility], [address] [place], [place] [address], [address], [place], [address], 5 08:24:24 lipid panel, serum 2024 025 [facility]ILY [facility], [facility] [address], [address], [place], [address], 5 08:24:19 vitami n D, 25-hyd bárbara, total, serum 2024 025 EMILY BULL, [address], [address], [place], [address], 5 06:25:16 TSH, ultra- sensit juan, serum 2024 025 EMILY BULL, [address], [address], [place], [address], 5 06:25:14 drug screen , urine 2024 025 EMILY BULL, [address], [address], [place], [address], 5 06:25:13 PSA, total, serum or plasma 2024 025 EMILY BULL, [address], [address], [place], [address], 5 06:25:15 albumi n/crea tinine , mass ratio, urine 2022 023 EMILY BULL, [address], [address], [place], [address], 3 21:08:04 HbA1c (hemog lobin A1c), blood 2022 023 EMILY BULL, [address], [address], [place], [address], 3 21:08:05 CMP, serum or plasma 2022 023 EMILY BULL, [address], [address], [place], [address], 3 21:08:05 CBC w/ auto diff 2022 023 EMILY BULL, [address], [address], [place], [address], 3 21:08:06 HbA1c (hemog lobin A1c), blood 2022 023 EMILY In-Office Order, Internal Use Only DO Not Attach Compendium DO Not Attach Compendium, Do Not Delete/merge, [id number] 3 16:09:17 CMP, serum or plasma 2022 023 [facility]ILY [facility], [address], [address], [place], [address], 3 22:07:38 CBC w/ auto diff 2022 023 EMILY BULL, [address], [address], [place], [address], 3 22:07:39 albumi n/crea tinine , mass ratio, urine 2022 023 EMILY BULL, [address], [address], [place], [address], 3 11:12:47 hepati tis C virus RNA, quant, PCR, serum or plasma 2021 022 EMILY BULL, [address], [address], [place], [address], 2 22:06:53 CBC w/ auto diff 2021 022 EMILY BULL, [address], [address], [place], [address], 2 22:07:04 CMP, serum or plasma 2021 022 EMILY [facility], [address], [address], [place], [address], 2 22:07:03 HIV 1 + 2, meanin gful use set 2021 022 [facility], [address], [address], [place], [address], 2 22:06:54 Referral pulmon ologis t referr al 2024 025 [email or web address] Dimas MD, [address], [address], [place], [address], 5 18:02:46 podiat rist referr al 2024 025 jessieinliborio Iraheta DPM, [address], [address], [place], [address], 5 18:02:46 pulmon ologis t referr al 2024 025 EMILY Cummings MD, [address], [place], [address], 5 16:39:51 cardio logist referr al 2024 025 gerson Danielle DO, [address] [facility] [address], [address], [place], [address], 5 08:55:08 physic al therap ist referr ia - Gran e [facility] Loc[facility] on 2024 025 [facility], [address], [place], [address], 5 15:57:38 wound care referr al 2022 023 [facility], [address], [address], [place], [address], 3 11:00:39 pallia tive medici ne referr al - pallia tive 2022 023 [facility], [address], [address], [place], [address], 3 15:03:06 cardio logist referr al 2022 023 [facility] Y[facility]zo Danielle , [address], [address], [place], [address], 3 14:29:33 gastro entero logist referr al [address], [address], [place], [address], 3 17:16:04 orthop edic surgeo n referr al 2021 022 [facility] ([facility] [place] [facility] Of [facility]), [address] [facility], [address] [place] [address], [address], 2 12:39:51 physic al therap ist referr al 2021 022 [facility] (Outpatient Physical Therapy), [address], [place], [address], 3 15:19:32 Procedures None record ed. Surgeries None record ed. Imaging XR, cervic al spine - Chroni c neck pain 2024 025 [facility], [address], [place], [address], 5 14:38:57 LDCT, chest, for lung cancer screen ing 2024 025 [facility], [address], [place], [address], 5 14:06:31 LDCT, chest, for lung cancer screen ing [address] (Imaging), [address] [facility] [address], [place], [address], 3 13:28:18 US, duplex , venous , lower extrem ity [address] (Imaging), [address] [facility] [address], [place], [address], 2 09:46:48 LDCT, chest, for lung cancer screen ing [address] (Imaging), [address] [facility] [address], [place], [address], 2 09:46:52 Medication Orders ergoca lcifer ol (vitam in D2) 1,250 mcg (50,00 0 unit) capsul e 2024 [facility], [address], [place], [id number], 5 10:05:29 Treleg y Ellipt a 100 mcg-62 .5 mcg-25 mcg powder for inhala tion 2024 [facility] #63534, [address], [place], [id number], 5 10:17:10 flucon azole 150 mg tablet 2024 025 [facility] #66520, [address], [place], [id number], 5 09:49:57 albute rol sulfat e HFA 90 mcg/ac tuatio n aeroso l inhale r 2024 025 [facility], [address], [place], [id number], 5 14:54:01 aspiri n 81 mg tablet ,delay ed releas e 2024 025 [facility] #72800, [address], [place], [id number], 5 14:54:07 metopr olol tartra te 37.5 mg tablet 2024 025 [facility] #80048, [address] [place] [address], [id number], 5 14:54:04 furose mide 40 mg tablet 2024 025 [facility] #19678, [address] [place] [address], [id number], 5 14:53:59 ammoni um lactat e 12 % lotion 2024 025 [facility] #48464, [address] [place] [address], [id number], 5 14:57:55 atorva statin 20 mg tablet 2024 025 [facility] #63790, [address] [place] [address], [id number], 5 19:34:52 metopr olol succin ate ER 25 mg tablet ,exten ded releas e 24 hr 2022 023 [facility] #01162, [address] , [place], [place], [id number], 5 14:05:12 furose mide 20 mg tablet 2022 023 [facility] #98223, [address], [place], [place], [id number], 14:04:57 clotri mazole 1 % topica l cream 2022 023 oajao [facility] #17891, [address], [place], [id number], 14:27:37 furose mide 40 mg tablet 2021 022 EMILY [facility] #15302, [address], [place], [id number], 17:15:24 Patient TargetsNo targets recorded. Patient Instructions Encounter Date Encounter Id Patient Instructions Last Modified By Organization Details Last Modified Time 03/15/2022 [id number] complete PFT w/ post bronchodilator spirometry* Not available 03/15/2022 16:00:52 A healthy lifestyle: care instructions Not available 03/22/2022 20:41:59 knee pain or injury: care instructions Not available 03/22/2022 20:39:23 05/20/2022 [id number] complete PFT w/ post bronchodilator spirometry* EMILY Not available 06/10/2022 06:06:21 A healthy lifestyle: care instructions Not available 05/22/2022 08:58:45 knee pain or injury: care instructions Not available 05/22/2022 08:58:45 09/21/2022 [id number] A healthy lifestyle: care instructions Not available 09/21/2022 14:52:26 06/11/2024 [id number] athlete's foot: care instructions oajao Not available 06/11/2024 14:56:55 high blood pressure: care instructions oajao Not available 06/11/2024 14:53:53 learning about high blood pressure oajao Not available 06/11/2024 14:53:54 heart failure: care instructions oajao Not available 06/11/2024 14:53:54 learning about heart failure oajao Not available 06/11/2024 14:53:53 dry skin: care instructions oajao Not available 06/11/2024 14:56:55 Labs Cardiology D/C summary from [facility] Colonoscopy report from [facility] Podiatry Xrays Stop smoking Do not smoke while using Nicotine replacement PT for PMD Follow up in 4 weeks (30 minutes) oajao Not available 06/11/2024 19:41:47 Very detailed initial visit oajao Not available 06/11/2024 19:42:04 10/26/2024 [id number] prediabetes: car e instructions oajao Not available 10/26/2024 10:04:03 sleep apnea: car e instructions oajao Not available 10/26/2024 10:01:52 A healthy lifestyle: care instructions oajao Not available 10/26/2024 09:38:37 body mass index: care instructions oajao Not available 10/26/2024 09:38:37 learning about healthy weight oajao Not available 10/26/2024 09:38:37 Refill of the Psychiatric medications by the BH team at [facility] Cardiology as referred Sleep medicine/Pulmonolo gy (Dr Lee) Follow up in 6 weeks oajao Not available 10/26/2024 10:11:27 Detailed visit oajao Not available 0 10/26/2024 11:00:18 Reason for Referral Tour Counselor Referral for Chronic hepatitis C Referring Physician: [...] Physician: General Christiana [place], Encounter Date: 05/20/2022 Edge Brusher Referral for Co ngestive heart failure Referring Physician: Tomeka Montelongo, Rocket Motor Mechanic, Encounter Date: 05/20/2022 Physical Therapist Referral for Impaired mobility [facility] Referring Physician: Dominick Kennedy, Internal Medicine, Encounter Date: 06/11/2024 Edge Brusher Referral for Co ngestive heart failure CHF Referring Physician: Dominick Kennedy, Internal Medicine, Encounter Date: 06/11/2024 Hospice Nurse Practitioner Referral for C hronic obstructive pulmonary disease COPD Referring Physician: Dominick Kennedy, Internal Medicine, Encounter Date: 06/11/2024 Circuit Board Drafter Referral for Kaylan a pedis Onychomycosis, Tinea pedis Referring Physician: Dominick Kennedy, Internal Medicine, Encounter Date: 06/11/2024 Hospice Nurse Practitioner Referral for C hronic obstructive pulmonary disease COPD/STEVE Referring Physician: Dominick Kennedy, Internal Medicine, Encounter Date: 10/26/2024 Results Created Date Observation Date Name Description Value Unit Range Abnormal Flag Note LastModifiedBy Organization Detail LastModifiedTime 03/15/20 22 03/16/2022 COMP. METAB OLIC PANEL (14) glucose 116 mg/dL 65-99 above high normal ANION GP 19.0 mmol/ L N OSMOL 270.0 mOsM/ L L REFER ENCE RANGE : 275.0 -301. 0 Not Available [facility] Department [address] [place], [address], 03/16/2022 22:07:03 03/15/20 22 03/16/2022 COMP. METAB OLIC PANEL (14) BUN 15 mg/dL 8-26 Not Available [facility] Department [address] [place], [address], 03/16/2022 22:07:03 03/15/20 22 03/16/2022 COMP. METAB OLIC PANEL (14) creatinine 0.81 mg/dL 0.50-1 .40 Not Available [facility] Department [address] [place], [address], 03/16/2022 22:07:03 03/15/20 22 03/16/2022 COMP. METAB OLIC PANEL (14) eGFR 99 mL/mi n/1.7 3 >=60 Not Available [facility] Department [address] [place], [address], 03/16/2022 22:07:03 03/15/20 22 03/16/2022 COMP. METAB OLIC PANEL (14) BUN/creatini ne ratio 18.3 Not Available [facility] Department [address] [place], [address], 03/16/2022 22:07:03 03/15/20 22 03/16/2022 COMP. METAB OLIC PANEL (14) sodium 134.0 mmol/ L 136.0- 144.0 below low normal Not Available [facility] Department [address] [place], [address], 03/16/2022 22:07:03 03/15/20 22 03/16/2022 COMP. METAB OLIC PANEL (14) potassium 4.6 mmol/ L 3.5-5. 3 Not Available [facility] Department [address] [place], [address], 03/16/2022 22:07:03 03/15/20 22 03/16/2022 COMP. METAB OLIC PANEL (14) chloride 94 mmol/ l 101-11 1 below low normal Not Available [facility] Department [address] [place], [address], 03/16/2022 22:07:03 03/15/20 22 03/16/2022 COMP. METAB OLIC PANEL (14) carbon dioxide, total 25.7 mmol/ L 21.0-3 2.0 Not Available [facility] Department [address] [place], [address], 03/16/2022 22:07:03 03/15/20 22 03/16/2022 COMP. METAB OLIC PANEL (14) calcium 10.0 mg/dL 8.2-10 .0 Not Available [facility] Department [address] [place], [address], 03/16/2022 22:07:03 03/15/20 22 03/16/2022 COMP. METAB OLIC PANEL (14) protein, total 9.6 g/dL 6.7-8. 2 above high normal Not Available [facility] Department [address] [place], [address], 03/16/2022 22:07:03 03/15/20 22 03/16/2022 COMP. METAB OLIC PANEL (14) albumin 3.7 g/dL 3.5-5. 5 Not Available [facility] Department [address] [place] [address], [address], 03/16/2022 22:07:03 03/15/20 22 03/16/2022 COMP. METAB OLIC PANEL (14) globulin, total 5.9 g/dL 1.5-4. 5 above high normal Not Available [facility] Department [address] [place], [address], 03/16/2022 22:07:03 03/15/20 22 03/16/2022 COMP. METAB OLIC PANEL (14) A/G ratio 0.6 Not Available [facility] Department [address] [place], [address], 03/16/2022 22:07:03 03/15/20 22 03/16/2022 COMP. METAB OLIC PANEL (14) bilirubin, total 0.6 mg/dL 0.0-1. 2 Not Available [facility] Department [address] [place], [address], 03/16/2022 22:07:03 03/15/20 22 03/16/2022 COMP. METAB OLIC PANEL (14) alkaline phosphatase 458.7 IU/L 42.0-1 21.0 above high normal Not Available [facility] Department [address] [place], [address], 03/16/2022 22:07:03 03/15/20 22 03/16/2022 COMP. METAB OLIC PANEL (14) AST (SGOT) 34.9 U/L 10.0-4 2.0 Not Available [facility] Department [address] [place], [address], 03/16/2022 22:07:03 03/15/20 22 03/16/2022 COMP. METAB OLIC PANEL (14) ALT (SGPT) 31.6 U/L 10.0-6 0.0 Not Available [facility] Department [address] [place], [address], 03/16/2022 22:07:03 03/15/20 22 03/16/2022 CBC WITH DIFFE RENTI AL/PL ATELE T WBC 10.2 K/uL 3.4-10 .8 Not Available [facility] Department [address] [place], [address], 03/16/2022 22:07:03 03/15/20 22 03/16/2022 CBC WITH DIFFE RENTI AL/PL ATELE T RBC 4.8 M/uL 4.5-6. 3 Not Available [facility] Department [address] [place], [address], 03/16/2022 22:07:03 03/15/20 22 03/16/2022 CBC WITH DIFFE RENTI AL/PL ATELE T hemoglobin 14.1 g/dL 13.5-1 7.5 Not Available [facility] Department [address] [place], [address], 03/16/2022 22:07:03 03/15/20 22 03/16/2022 CBC WITH DIFFE RENTI AL/PL ATELE T hematocrit 44.4 % 40.0-5 2.0 Not Available [facility] Department [address] [place], [address], 03/16/2022 22:07:03 03/15/20 22 03/16/2022 CBC WITH DIFFE RENTI AL/PL ATELE T MCV 93 fL 80-95 Not Available [facility] Department [address] [place], [address], 03/16/2022 22:07:03 03/15/20 22 03/16/2022 CBC WITH DIFFE RENTI AL/PL ATELE T MCH 30 pg 27-32 Not Available [facility] Department [address] [place], [address], 03/16/2022 22:07:03 03/15/20 22 03/16/2022 CBC WITH DIFFE RENTI AL/PL ATELE T MCHC 32 g/dL 32-36 Not Available [facility] Department [address] [place], [address], 03/16/2022 22:07:03 03/15/20 22 03/16/2022 CBC WITH DIFFE RENTI AL/PL ATELE T RDW 12.8 % 11.5-1 4.5 Not Available [facility] Department [address] [place], [address], 03/16/2022 22:07:03 03/15/20 22 03/16/2022 CBC WITH DIFFE RENTI AL/PL ATELE T platelets 317 K/uL 155-37 9 MPV 10.6 FL 8.9-1 2.7 N Not Available [facility] Department [address] [place], [address], 03/16/2022 22:07:03 03/15/20 22 03/16/2022 CBC WITH DIFFE RENTI AL/PL ATELE T neutrophils 74.2 % 40.0-7 4.0 above high normal Not Available [facility] Department [address] [place], [address], 03/16/2022 22:07:03 03/15/20 22 03/16/2022 CBC WITH DIFFE RENTI AL/PL ATELE T lymphs 12.8 % 14.0-4 6.0 below low normal Not Available [facility] Department [address] [place], [address], 03/16/2022 22:07:03 03/15/20 22 03/16/2022 CBC WITH DIFFE RENTI AL/PL ATELE T monocytes 8.2 % 4.0-12 .0 Not Available [facility] Department [address] [place], [address], 03/16/2022 22:07:03 03/15/20 22 03/16/2022 CBC WITH DIFFE RENTI AL/PL ATELE T eos 3 % 0-5 Not Available [facility] Department [address] [place], [address], 03/16/2022 22:07:03 03/15/20 22 03/16/2022 CBC WITH DIFFE RENTI AL/PL ATELE T basos 0.7 % 0.0-1. 0 Not Available [facility] Department [address] [place], [address], 03/16/2022 22:07:03 03/15/20 22 03/16/2022 CBC WITH DIFFE RENTI AL/PL ATELE T neutrophils (absolute) 7.6 K/uL 1.4-7. 0 above high normal Not Available [facility] Department [address] [place], [address], 03/16/2022 22:07:03 03/15/20 22 03/16/2022 CBC WITH DIFFE RENTI AL/PL ATELE T lymphs (absolute) 1.3 K/uL 0.7-3. 1 Not Available [facility] Department [address] [place], [address], 03/16/2022 22:07:03 03/15/20 22 03/16/2022 CBC WITH DIFFE RENTI AL/PL ATELE T monocytes(ab solute) 0.8 K/uL 0.1-0. 9 Not Available [facility] Department [address] [place], [address], 03/16/2022 22:07:03 03/15/20 22 03/16/2022 CBC WITH DIFFE RENTI AL/PL ATELE T eos (absolute) 0.3 K/uL 0.0-0. 4 Not Available [facility] Department [address] [place], [address], 03/16/2022 22:07:03 03/15/20 22 03/16/2022 CBC WITH DIFFE RENTI AL/PL ATELE T baso (absolute) 0.1 K/uL 0.0-0. 3 Not Available [facility] Department [address] [place], [address], 03/16/2022 22:07:03 03/15/20 22 03/16/2022 CBC WITH DIFFE RENTI AL/PL ATELE T immature granulocytes 1.5 % Not Available [facility] Department [address] [place], [address], 03/16/2022 22:07:03 03/15/20 22 03/16/2022 CBC WITH DIFFE RENTI AL/PL ATELE T immature grans (abs) 0.2 K/uL Not Available [facility] Department [address] [place], [address], 03/16/2022 22:07:03 03/15/20 22 03/16/2022 CBC WITH DIFFE RENTI AL/PL ATELE T NRBC 0 % Not Available [facility] Department [address] [place], [address], 03/16/2022 22:07:03 03/15/20 22 03/16/2022 HCV RNA BY PCR, QN RFX STEPHANIE test information: Commen t The quant itati ve range of this assay is 15 IU/mL to 100 angelo on IU/mL . Not Available [facility] ([facility]) [address] [facility], [place], [address], 03/20/2022 22:06:53 03/15/20 22 03/19/2022 HCV RNA BY PCR, QN RFX STEPHANIE hepatitis C quantitation [id number] 0 IU/mL Not Available [facility] ([facility]) [address] [facility], [place], [address], 03/20/2022 22:06:53 03/15/20 22 03/19/2022 HCV RNA BY PCR, QN RFX STEPHANIE HCV log10 6.954 log10 _IU/m L Not Available [facility] ([facility]) [address] [facility], [place], [address], 03/20/2022 22:06:53 03/15/20 22 03/19/2022 HCV RNA BY PCR, QN RFX STEPHANIE HCV genotype Commen t To be perfo rmed on this speci men. Not Available [facility] ([facility]) [address] [facility], [place], [address], 03/20/2022 22:06:53 03/15/20 22 03/17/2022 HIV AB/P2 4 AG WITH REFLE X HIV Ab/P24 Ag screen Non Reacti ve nonrea ctive HIV Negat juan HIV-1 /HIV- 2 antib odies and HIV-1 p24 antig en were NOT detec cole. There is no labor atory evide nce of HIV infec tion. Not Available [facility] ([facility]) [address] [facility], [place], [address], 03/20/2022 22:06:54 03/15/20 22 03/19/2022 HEPAT ITIS [...] as inves tigat ional or for resea rch. Not Available [facility] ([facility]) [address] [facility], [place], [address], 03/20/2022 22:06:54 03/15/20 22 03/20/2022 HEPAT ITIS C GENOT YPE hepatitis C genotype 1b Not Available [facility] ([facility]) [address] [facility], [place], [address], 03/20/2022 22:06:54 05/20/19 23 05/20/2022 COMP. METAB OLIC PANEL (14) glucose 104 mg/dL 65-99 above high normal ANION GP 22.0 mmol/ L N OSMOL 277.0 mOsM/ L N REFER ENCE RANGE : 275.0 -301. 0 Not Available [facility] Department [address] [place], [address], 05/20/2022 22:07:38 05/20/19 23 05/20/2022 COMP. METAB OLIC PANEL (14) BUN 11 mg/dL 8-26 Not Available [facility] Department [address] [place], [address], 05/20/2022 22:07:38 05/20/19 23 05/20/2022 COMP. METAB OLIC PANEL (14) creatinine 0.71 mg/dL 0.50-1 .40 Not Available [facility] Department [address] [place], [address], 05/20/2022 22:07:38 05/20/19 23 05/20/2022 COMP. METAB OLIC PANEL (14) eGFR 102 mL/mi n/1.7 3 >=60 Not Available [facility] Department [address] [place], [address], 05/20/2022 22:07:38 05/20/19 23 05/20/2022 COMP. METAB OLIC PANEL (14) BUN/creatini ne ratio 16.1 Not Available [facility] Department [address] [place], [address], 05/20/2022 22:07:38 05/20/19 23 05/20/2022 COMP. METAB OLIC PANEL (14) sodium 138.6 mmol/ L 136.0- 144.0 Not Available [facility] Department [address] [place], [address], 05/20/2022 22:07:38 05/20/19 23 05/20/2022 COMP. METAB OLIC PANEL (14) potassium 4.0 mmol/ L 3.5-5. 3 Not Available [facility] Department [address] [place] [address], [address], 05/20/2022 22:07:38 05/20/19 23 05/20/2022 COMP. METAB OLIC PANEL (14) chloride 100 mmol/ l 101-11 1 below low normal Not Available [facility] Department [address] [place] [address], [address], 05/20/2022 22:07:38 05/20/19 23 05/20/2022 COMP. METAB OLIC PANEL (14) carbon dioxide, total 21.4 mmol/ L 21.0-3 2.0 Not Available [facility] Department [address] [place], [address], 05/20/2022 22:07:38 05/20/19 23 05/20/2022 COMP. METAB OLIC PANEL (14) calcium 9.6 mg/dL 8.2-10 .0 Not Available [facility] Department [address] [place], [address], 05/20/2022 22:07:38 05/20/19 23 05/20/2022 COMP. METAB OLIC PANEL (14) protein, total 8.7 g/dL 6.7-8. 2 above high normal Not Available [facility] Department [address] [place], [address], 05/20/2022 22:07:38 05/20/19 23 05/20/2022 COMP. METAB OLIC PANEL (14) albumin 3.7 g/dL 3.5-5. 5 Not Available [facility] Department [address] [place], [address], 05/20/2022 22:07:38 05/20/19 23 05/20/2022 COMP. METAB OLIC PANEL (14) globulin, total 5.0 g/dL 1.5-4. 5 above high normal Not Available [facility] Department [address] [place], [address], 05/20/2022 22:07:38 05/20/19 23 05/20/2022 COMP. METAB OLIC PANEL (14) A/G ratio 0.7 Not Available [facility] Department [address] [place], [address], 05/20/2022 22:07:38 05/20/19 23 05/20/2022 COMP. METAB OLIC PANEL (14) bilirubin, total 0.4 mg/dL 0.0-1. 2 Not Available [facility] Department [address] [place], [address], 05/20/2022 22:07:38 05/20/19 23 05/20/2022 COMP. METAB OLIC PANEL (14) alkaline phosphatase 309.4 IU/L 42.0-1 21.0 above high normal Not Available [facility] Department [address] [place], [address], 05/20/2022 22:07:38 05/20/19 23 05/20/2022 COMP. METAB OLIC PANEL (14) AST (SGOT) 41.8 U/L 10.0-4 2.0 Not Available [facility] Department [address] [place], [address], 05/20/2022 22:07:38 05/20/19 23 05/20/2022 COMP. METAB OLIC PANEL (14) ALT (SGPT) 41.3 U/L 10.0-6 0.0 Not Available [facility] Department [address] [place], [address], 05/20/2022 22:07:38 05/20/19 23 05/20/2022 CBC WITH DIFFE RENTI AL/PL ATELE T WBC 7.5 K/uL 3.4-10 .8 Not Available [facility] Department [address] [place], [address], 05/20/2022 22:07:39 05/20/19 23 05/20/2022 CBC WITH DIFFE RENTI AL/PL ATELE T RBC 4.7 M/uL 4.5-6. 3 Not Available [facility] Department [address] [place], [address], 05/20/2022 22:07:39 05/20/19 23 05/20/2022 CBC WITH DIFFE RENTI AL/PL ATELE T hemoglobin 13.6 g/dL 13.5-1 7.5 Not Available [facility] Department [address] [place], [address], 05/20/2022 22:07:39 05/20/19 23 05/20/2022 CBC WITH DIFFE RENTI AL/PL ATELE T hematocrit 41.9 % 40.0-5 2.0 Not Available [facility] Department [address] [place], [address], 05/20/2022 22:07:39 05/20/19 23 05/20/2022 CBC WITH DIFFE RENTI AL/PL ATELE T MCV 90 fL 80-95 Not Available [facility] Department [address] [place], [address], 05/20/2022 22:07:39 05/20/19 23 05/20/2022 CBC WITH DIFFE RENTI AL/PL ATELE T MCH 29 pg 27-32 Not Available [facility] Department [address] [place], [address], 05/20/2022 22:07:39 05/20/19 23 05/20/2022 CBC WITH DIFFE RENTI AL/PL ATELE T MCHC 33 g/dL 32-36 Not Available [facility] Department [address] [place], [address], 05/20/2022 22:07:39 05/20/19 23 05/20/2022 CBC WITH DIFFE RENTI AL/PL ATELE T RDW 14.0 % 11.5-1 4.5 Not Available [facility] Department [address] [place], [address], 05/20/2022 22:07:39 05/20/19 23 05/20/2022 CBC WITH DIFFE RENTI AL/PL ATELE T platelets 318 K/uL 155-37 9 MPV 11.0 FL 8.9-1 2.7 N Not Available [facility] Department [address] [place], [address], 05/20/2022 22:07:39 05/20/19 23 05/20/2022 CBC WITH DIFFE RENTI AL/PL ATELE T neutrophils 63.6 % 40.0-7 4.0 Not Available [facility] Department [address] [place], [address], 05/20/2022 22:07:39 05/20/19 23 05/20/2022 CBC WITH DIFFE RENTI AL/PL ATELE T lymphs 19.0 % 14.0-4 6.0 Not Available [facility] Department [address] [place], [address], 05/20/2022 22:07:39 05/20/19 23 05/20/2022 CBC WITH DIFFE RENTI AL/PL ATELE T monocytes 7.6 % 4.0-12 .0 Not Available [facility] Department [address] [place], [address], 05/20/2022 22:07:39 05/20/19 23 05/20/2022 CBC WITH DIFFE RENTI AL/PL ATELE T eos 7 % 0-5 above high normal Not Available [facility] Department [address] [place], [address], 05/20/2022 22:07:39 05/20/19 23 05/20/2022 CBC WITH DIFFE RENTI AL/PL ATELE T basos 0.8 % 0.0-1. 0 Not Available [facility] Department [address] [place] [address], [address], 05/20/2022 22:07:39 05/20/19 23 05/20/2022 CBC WITH DIFFE RENTI AL/PL ATELE T neutrophils (absolute) 4.8 K/uL 1.4-7. 0 Not Available [facility] Department [address] [place], [address], 05/20/2022 22:07:39 05/20/19 23 05/20/2022 CBC WITH DIFFE RENTI AL/PL ATELE T lymphs (absolute) 1.4 K/uL 0.7-3. 1 Not Available [facility] Department [address] [place] [address], [address], 05/20/2022 22:07:39 05/20/19 23 05/20/2022 CBC WITH DIFFE RENTI AL/PL ATELE T monocytes(ab solute) 0.6 K/uL 0.1-0. 9 Not Available [facility] Department [address] [place], [address], 05/20/2022 22:07:39 05/20/19 23 05/20/2022 CBC WITH DIFFE RENTI AL/PL ATELE T eos (absolute) 0.5 K/uL 0.0-0. 4 above high normal Not Available [facility] Department [address] [place], [address], 05/20/2022 22:07:39 05/20/19 23 05/20/2022 CBC WITH DIFFE RENTI AL/PL ATELE T baso (absolute) 0.1 K/uL 0.0-0. 3 Not Available [facility] Department [address] [place], [address], 05/20/2022 22:07:39 05/20/19 23 05/20/2022 CBC WITH DIFFE RENTI AL/PL ATELE T immature granulocytes 1.9 % Not Available [facility] Department [address] [place], [address], 05/20/2022 22:07:39 05/20/19 23 05/20/2022 CBC WITH DIFFE RENTI AL/PL ATELE T immature grans (abs) 0.1 K/uL Not Available [facility] Department [address] [place], [address], 05/20/2022 22:07:39 05/20/19 23 05/20/2022 CBC WITH DIFFE RENTI AL/PL ATELE T NRBC 0 % Not Available [facility] Department [address] [place], [address], 05/20/2022 22:07:39 05/20/19 23 05/21/2022 ALBUM IN/CR EATIN INE RATIO ,URIN E creatinine, urine 179.4 mg/dL notest ab. Not Available [facility] ([facility]) [address] [facility], [place], [address], 05/21/2022 11:12:47 05/20/19 23 05/21/2022 ALBUM IN/CR EATIN INE RATIO ,URIN E albumin, urine 11.7 ug/mL notest ab. Not Available [facility] ([facility]) [address] [facility], [place], [address], 05/21/2022 11:12:47 05/20/19 23 05/21/2022 ALBUM IN/CR EATIN INE RATIO ,URIN E alb/creat ratio 7 mg/g_ creat 0-29 Brenda l: 0 - 29 Moder ately incre ased: 30 - 300 Sever kamran incre ased: >300 Not Available [facility] ([facility]) [address] [place], [address], 05/21/2022 11:12:47 05/20/19 23 05/20/2022 HbA1c (hemo globi n A1c), blood HbA1c 5.7% Not Available In-Office Order Internal Use Only DO Not Attach Compendium DO Not Attach Compendium, Do Not Delete/merge, [id number] 05/20/2022 15:45:07 09/22/19 23 09/22/2022 ALBUM IN/CR EATIN INE RATIO ,URIN E creatinine, urine 194.2 mg/dL notest ab. Not Available [facility] ([facility]) [address] [place], [address], 09/22/2022 21:08:04 09/22/19 23 09/22/2022 ALBUM IN/CR EATIN INE RATIO ,URIN E albumin, urine 17.1 ug/mL notest ab. Not Available [facility] ([facility]) [address] [place], [address], 09/22/2022 21:08:04 09/22/19 23 09/22/2022 ALBUM IN/CR EATIN INE RATIO ,URIN E alb/creat ratio 9 mg/g_ creat 0-29 Brenda l: 0 - 29 Moder ately incre ased: 30 - 300 Sever kamran incre ased: >300 Not Available [facility] ([facility]) [address] [place], [address], 09/22/2022 21:08:04 09/22/19 23 09/22/2022 COMP. METAB OLIC PANEL (14) glucose 108 mg/dL 70-99 above high normal Not Available [facility] ([facility]) [address] [place] [place], [address], 09/22/2022 21:08:05 09/22/19 23 09/22/2022 COMP. METAB OLIC PANEL (14) BUN 11 mg/dL 8-27 Not Available [facility] ([facility]) [address] [place] [place], [address], 09/22/2022 21:08:05 09/22/19 23 09/22/2022 COMP. METAB OLIC PANEL (14) creatinine 0.70 mg/dL 0.76-1 .27 below low normal Not Available [facility] ([facility]) [address] [facility] [place], [address], 09/22/2022 21:08:05 09/22/19 23 09/22/2022 COMP. METAB OLIC PANEL (14) eGFR 103 mL/mi n/1.7 3 >59 Not Available [facility] ([facility]) [address] [place] [place], [address], 09/22/2022 21:08:05 09/22/19 23 09/22/2022 COMP. METAB OLIC PANEL (14) BUN/creatini ne ratio 16 10-24 Not Available [facility] ([facility]) [address] [facility] [place], [address], 09/22/2022 21:08:05 09/22/19 23 09/22/2022 COMP. METAB OLIC PANEL (14) sodium 138 mmol/ L 134-14 4 Not Available [facility] ([facility]) [address] [facility] [place], [address], 09/22/2022 21:08:05 09/22/19 23 09/22/2022 COMP. METAB OLIC PANEL (14) potassium 4.4 mmol/ L 3.5-5. 2 Not Available [facility] ([facility]) [address] [facility], [place], [address], 09/22/2022 21:08:05 09/22/19 23 09/22/2022 COMP. METAB OLIC PANEL (14) chloride 95 mmol/ L 96-106 below low normal Not Available [facility] [address] [place] [place], [address], 09/22/2022 21:08:05 09/22/19 23 09/22/2022 COMP. METAB OLIC PANEL (14) carbon dioxide, total 28 mmol/ L 20-29 Not Available [facility] ([facility]) [address] [facility] [place], [address], 09/22/2022 21:08:05 09/22/19 23 09/22/2022 COMP. METAB OLIC PANEL (14) calcium 9.1 mg/dL 8.6-10 .2 Not Available [facility] ([facility]) [address] [facility] [place], [address], 09/22/2022 21:08:05 09/22/19 23 09/22/2022 COMP. METAB OLIC PANEL (14) protein, total 8.5 g/dL 6.0-8. 5 Not Available [facility] ([facility]) [address] [facility] [place], [address], 09/22/2022 21:08:05 09/22/19 23 09/22/2022 COMP. METAB OLIC PANEL (14) albumin 3.6 g/dL 3.8-4. 8 below low normal Not Available [facility] ([facility]) [address] [facility] [place], [address], 09/22/2022 21:08:05 09/22/19 23 09/22/2022 COMP. METAB OLIC PANEL (14) globulin, total 4.9 g/dL 1.5-4. 5 above high normal Not Available [facility] ([facility]) [address] [facility] [place], [address], 09/22/2022 21:08:05 09/22/19 23 09/22/2022 COMP. METAB OLIC PANEL (14) A/G ratio 0.7 1.2-2. 2 below low normal Not Available [facility] ([facility]) [address] [facility], [place], [address], 09/22/2022 21:08:05 09/22/19 23 09/22/2022 COMP. METAB OLIC PANEL (14) bilirubin, total 1.0 mg/dL 0.0-1. 2 Not Available [facility] ([facility]) [address] [facility], [place], [address], 09/22/2022 21:08:05 09/22/19 23 09/22/2022 COMP. METAB OLIC PANEL (14) alkaline phosphatase 221 IU/L 44-121 above high normal Not Available [facility] ([facility]) [address] [facility], [place], [address], 09/22/2022 21:08:05 09/22/19 23 09/22/2022 COMP. METAB OLIC PANEL (14) AST (SGOT) 13 IU/L 0-40 Not Available [facility] ([facility]) [address] [facility], [place], [address], 09/22/2022 21:08:05 09/22/19 23 09/22/2022 COMP. METAB OLIC PANEL (14) ALT (SGPT) 6 IU/L 0-44 Not Available [facility] ([facility]) [address] [facility], [place], [address], 09/22/2022 21:08:05 09/22/19 23 09/22/2022 CBC WITH DIFFE RENTI AL/PL ATELE T WBC 6.6 x10e3 /uL 3.4-10 .8 Not Available [facility] ([facility]) [address] [facility], [place], [address], 09/22/2022 21:08:06 06/06/20 23 09/22/2022 CBC WITH DIFFE RENTI AL/PL ATELE T RBC 5.12 x10e6 /uL 4.14-5 .80 Not Available [facility] ([facility]) [address] [place], [address], 09/22/2022 21:08:06 09/22/19 23 09/22/2022 CBC WITH DIFFE RENTI AL/PL ATELE T hemoglobin 14.2 g/dL 13.0-1 7.7 Not Available [facility] ([facility]) [address] [place], [address], 09/22/2022 21:08:06 09/22/19 23 09/22/2022 CBC WITH DIFFE RENTI AL/PL ATELE T hematocrit 46.5 % 37.5-5 1.0 Not Available [facility] ([facility]) [address] [place], [address], 09/22/2022 21:08:06 09/22/19 23 09/22/2022 CBC WITH DIFFE RENTI AL/PL ATELE T MCV 91 fL 79-97 Not Available [facility] ([facility]) [address] [place], [address], 09/22/2022 21:08:06 09/22/19 23 09/22/2022 CBC WITH DIFFE RENTI AL/PL ATELE T MCH 27.7 pg 26.6-3 3.0 Not Available [facility] ([facility]) [address] [place], [address], 09/22/2022 21:08:06 09/22/19 23 09/22/2022 CBC WITH DIFFE RENTI AL/PL ATELE T MCHC 30.5 g/dL 31.5-3 5.7 below low normal Not Available [facility] ([facility]) [address] [place], [address], 09/22/2022 21:08:06 09/22/19 23 09/22/2022 CBC WITH DIFFE RENTI AL/PL ATELE T RDW 13.3 % 11.6-1 5.4 Not Available [facility] ([facility]) [address] [facility], [place], [address], 09/22/2022 21:08:06 09/22/19 23 09/22/2022 CBC WITH DIFFE RENTI AL/PL ATELE T platelets 283 x10e3 /uL 150-45 0 Not Available [facility] ([facility]) [address] [facility], [place], [address], 09/22/2022 21:08:06 09/22/19 23 09/22/2022 CBC WITH DIFFE RENTI AL/PL ATELE T neutrophils 64 % notest ab. Not Available [facility] ([facility]) [address] [facility], [place], [address], 09/22/2022 21:08:06 09/22/19 23 09/22/2022 CBC WITH DIFFE RENTI AL/PL ATELE T lymphs 19 % notest ab. Not Available [facility] ([facility]) [address] [facility], [place], [address], 09/22/2022 21:08:06 09/22/19 23 09/22/2022 CBC WITH DIFFE RENTI AL/PL ATELE T monocytes 9 % notest ab. Not Available [facility] ([facility]) [address] [facility], [place], [address], 09/22/2022 21:08:06 09/22/19 23 09/22/2022 CBC WITH DIFFE RENTI AL/PL ATELE T eos 6 % notest ab. Not Available [facility] ([facility]) [address] [facility], [place], [address], 09/22/2022 21:08:06 09/22/19 23 09/22/2022 CBC WITH DIFFE RENTI AL/PL ATELE T basos 1 % notest ab. Not Available [facility] ([facility]) [address] [facility], [place], [address], 09/22/2022 21:08:06 09/22/19 23 09/22/2022 CBC WITH DIFFE RENTI AL/PL ATELE T neutrophils (absolute) 4.2 x10e3 /uL 1.4-7. 0 Not Available [facility] ([facility]) [address] [facility], [place], [address], 09/22/2022 21:08:06 09/22/19 23 09/22/2022 CBC WITH DIFFE RENTI AL/PL ATELE T lymphs (absolute) 1.3 x10e3 /uL 0.7-3. 1 Not Available [facility] ([facility]) [address] [facility], [place], [address], 09/22/2022 21:08:06 09/22/19 23 09/22/2022 CBC WITH DIFFE RENTI AL/PL ATELE T monocytes(ab solute) 0.6 x10e3 /uL 0.1-0. 9 Not Available [facility] ([facility]) [address] [facility], [place], [address], 09/22/2022 21:08:06 09/22/19 23 09/22/2022 CBC WITH DIFFE RENTI AL/PL ATELE T eos (absolute) 0.4 x10e3 /uL 0.0-0. 4 Not Available [facility] ([facility]) [address] [place], [address], 09/22/2022 21:08:06 09/22/19 23 09/22/2022 CBC WITH DIFFE RENTI AL/PL ATELE T baso (absolute) 0.1 x10e3 /uL 0.0-0. 2 Not Available [facility] ([facility]) [address] [place], [address], 09/22/2022 21:08:06 09/22/19 23 09/22/2022 CBC WITH DIFFE RENTI AL/PL ATELE T immature granulocytes 1 % notest ab. Not Available [facility] ([facility]) [address] [facility], [place], [address], 09/22/2022 21:08:06 09/22/19 23 09/22/2022 CBC WITH DIFFE RENTI AL/PL ATELE T immature grans (abs) 0.1 x10e3 /uL 0.0-0. 1 Not Available [facility] ([facility]) [address] [facility], [place], [address], 09/22/2022 21:08:06 09/22/19 23 09/22/2022 HEMOG LOBIN A1C hemoglobin A1C 6.1 % 4.8-5. 6 above high normal Predi abete s: 5.7 - 6.4 Diabe lizzy: >6.4 Glyce jay jay contr ol for adult s with diabe lizzy: <7.0 Not Available [facility] ([facility]) [address] [facility], [place], [address], 09/22/2022 21:08:05 06/11/1906/12/2024 LIPID PANEL cholesterol, total 199 mg/dL 100-19 9 Not Available [facility] ([facility]) [address] [facility], [place], [address], 06/12/2024 08:24:19 06/11/1906/12/2024 LIPID PANEL triglyceride s 90 mg/dL 0-149 Not Available [facility] ([facility]) [address] [facility], [place], [address], 06/12/2024 08:24:19 06/11/1906/12/2024 LIPID PANEL HDL cholesterol 53 mg/dL >39 Not Available [facility]) [address] [facility], [place], [address], 06/12/2024 08:24:19 06/11/19 25 06/12/2024 LIPID PANEL VLDL cholesterol samuel 16 mg/dL 5-40 Not Available [facility] ([facility]) [address] [place], [address], 06/12/2024 08:24:19 06/11/19 25 06/12/2024 LIPID PANEL LDL chol calc ([facility]) 130 mg/dL 0-99 above high normal Not Available [facility] ([facility]) [address] [place], [address], 06/12/2024 08:24:19 06/11/19 25 06/12/2024 COMP. METAB OLIC PANEL (14) glucose 93 mg/dL 70-99 Not Available [facility] ([facility]) [address] [place], [address], 06/12/2024 08:24:21 06/11/19 25 06/12/2024 COMP. METAB OLIC PANEL (14) BUN 11 mg/dL 8-27 Not Available [facility] ([facility]) [address] [place], [address], 06/12/2024 08:24:21 06/11/19 25 06/12/2024 COMP. METAB OLIC PANEL (14) creatinine 0.62 mg/dL 0.76-1 .27 below low normal Not Available [facility] ([facility]) [address] [place], [address], 06/12/2024 08:24:21 06/11/19 25 06/12/2024 COMP. METAB OLIC PANEL (14) eGFR 105 mL/mi n/1.7 3 >59 Not Available [facility] ([facility]) [address] [place], [address], 06/12/2024 08:24:21 06/11/19 25 06/12/2024 COMP. METAB OLIC PANEL (14) BUN/creatini ne ratio 18 10-24 Not Available [facility] ([facility]) [address] [facility], [place], [address], 06/12/2024 08:24:21 06/11/19 25 06/12/2024 COMP. METAB OLIC PANEL (14) sodium 140 mmol/ L 134-14 4 Not Available [facility] ([facility]) [address] [place], [address], 06/12/2024 08:24:21 06/11/19 25 06/12/2024 COMP. METAB OLIC PANEL (14) potassium 4.4 mmol/ L 3.5-5. 2 Not Available [facility] ([facility]) [address] [facility] [place], [address], 06/12/2024 08:24:21 06/11/19 25 06/12/2024 COMP. METAB OLIC PANEL (14) chloride 99 mmol/ L 96-106 Not Available [facility] ([facility]) [address] [facility] [place], [address], 06/12/2024 08:24:21 06/11/19 25 06/12/2024 COMP. METAB OLIC PANEL (14) carbon dioxide, total 26 mmol/ L 20-29 Not Available [facility] ([facility]) [address] [facility] [place], [address], 06/12/2024 08:24:21 06/11/19 25 06/12/2024 COMP. METAB OLIC PANEL (14) calcium 9.3 mg/dL 8.6-10 .2 Not Available [facility] ([facility]) [address] [facility] [place], [address], 06/12/2024 08:24:21 06/11/19 25 06/12/2024 COMP. METAB OLIC PANEL (14) protein, total 7.7 g/dL 6.0-8. 5 Not Available [facility] ([facility]) [address] [facility] [place], [address], 06/12/2024 08:24:21 06/11/19 25 06/12/2024 COMP. METAB OLIC PANEL (14) albumin 3.8 g/dL 3.9-4. 9 below low normal Not Available [facility] ([facility]) [address] [facility], [place], [address], 06/12/2024 08:24:21 06/11/19 25 06/12/2024 COMP. METAB OLIC PANEL (14) globulin, total 3.9 g/dL 1.5-4. 5 Not Available [facility] ([facility]) [address] [facility], [place], [address], 06/12/2024 08:24:21 06/11/19 25 06/12/2024 COMP. METAB OLIC PANEL (14) bilirubin, total 0.3 mg/dL 0.0-1. 2 Not Available [facility] ([facility]) [address] [facility], [place], [address], 06/12/2024 08:24:21 06/11/19 25 06/12/2024 COMP. METAB OLIC PANEL (14) alkaline phosphatase 113 IU/L 44-121 Not Available [facility]) [address] [facility], [place], [address], 06/12/2024 08:24:21 06/11/19 25 06/12/2024 COMP. METAB OLIC PANEL (14) AST (SGOT) 15 IU/L 0-40 Not Available [facility] ([facility]) [address] [facility] [place], [address], 06/12/2024 08:24:21 06/11/19 25 06/12/2024 COMP. METAB OLIC PANEL (14) ALT (SGPT) 9 IU/L 0-44 Not Available [facility] ([facility]) [address] [facility], [place], [address], 06/12/2024 08:24:21 06/11/1906/12/2024 URINA LYSIS , ROUTI NE specific gravity 1.013 1.005- 1.030 Not Available [facility] ([facility]) [address] [place], [address], 06/12/2024 08:24:22 06/11/19 25 06/12/2024 URINA LYSIS , ROUTI NE pH 6.0 5.0-7. 5 Not Available [facility] ([facility]) [address] [place], [address], 06/12/2024 08:24:22 06/11/1906/12/2024 URINA LYSIS , ROUTI NE urine-color YELLOW yellow Not Available [facility] ([facility]) [address] [place], [address], 06/12/2024 08:24:22 06/11/1906/12/2024 URINA LYSIS , ROUTI NE appearance CLEAR clear Not Available [facility] ([facility]) [address] [place], [address], 06/12/2024 08:24:22 06/11/1906/12/2024 URINA LYSIS , ROUTI NE WBC esterase NEGATI VE negati ve Not Available [facility] ([facility]) [address] [place], [address], 06/12/2024 08:24:22 06/11/1906/12/2024 URINA LYSIS , ROUTI NE protein NEGATI VE negati ve/tra ce Not Available [facility] ([facility]) [address] [place], [address], 06/12/2024 08:24:22 06/11/1906/12/2024 URINA LYSIS , ROUTI NE glucose NEGATI VE negati ve Not Available [facility] ([facility]) [address] [place], [address], 06/12/2024 08:24:22 06/11/19 25 06/12/2024 URINA LYSIS , ROUTI NE ketones NEGATI VE negati ve Not Available [facility] ([facility]) [address] [place], [address], 06/12/2024 08:24:22 06/11/19 25 06/12/2024 URINA LYSIS , ROUTI NE occult blood NEGATI VE negati ve Not Available [facility] ([facility]) [address] [place], [address], 06/12/2024 08:24:22 06/11/19 25 06/12/2024 URINA LYSIS , ROUTI NE bilirubin NEGATI VE negati ve Not Available [facility] ([facility]) [address] [place], [address], 06/12/2024 08:24:22 06/11/19 25 06/12/2024 URINA LYSIS , ROUTI NE urobilinogen ,semi-qn 0.2 mg/dL 0.2-1. 0 Not Available [facility] ([facility]) [address] [place], [address], 06/12/2024 08:24:22 06/11/19 25 06/12/2024 URINA LYSIS , ROUTI NE nitrite, urine NEGATI VE negati ve Not Available [facility] ([facility]) [address] [place], [address], 06/12/2024 08:24:22 06/11/1906/12/2024 URINA LYSIS , ROUTI NE microscopic examination COMMEN T Micro scopi c not indic ated and not perfo rmed. Not Available [facility] ([facility]) [address] [place], [address], 06/12/2024 08:24:22 06/11/19 25 06/12/2024 CBC WITH DIFFE RENTI AL/PL ATELE T WBC 7.4 x10e3 /uL 3.4-10 .8 Not Available [facility] ([facility]) [address] [place], [address], 06/12/2024 08:24:24 06/11/19 25 06/12/2024 CBC WITH DIFFE RENTI AL/PL ATELE T RBC 4.65 x10e6 /uL 4.14-5 .80 Not Available [facility] ([facility]) [address] [facility], [place], [address], 06/12/2024 08:24:24 06/11/19 25 06/12/2024 CBC WITH DIFFE RENTI AL/PL ATELE T hemoglobin 14.3 g/dL 13.0-1 7.7 Not Available [facility] ([facility]) [address] [place], [address], 06/12/2024 08:24:24 06/11/19 25 06/12/2024 CBC WITH DIFFE RENTI AL/PL ATELE T hematocrit 43.2 % 37.5-5 1.0 Not Available [facility] ([facility]) [address] [place], [address], 06/12/2024 08:24:24 06/11/19 25 06/12/2024 CBC WITH DIFFE RENTI AL/PL ATELE T MCV 93 fL 79-97 Not Available [facility] ([facility]) [address] [place], [address], 06/12/2024 08:24:24 06/11/1906/12/2024 CBC WITH DIFFE RENTI AL/PL ATELE T MCH 30.8 pg 26.6-3 3.0 Not Available [facility] ([facility]) [address] [place], [address], 06/12/2024 08:24:24 06/11/19 25 06/12/2024 CBC WITH DIFFE RENTI AL/PL ATELE T MCHC 33.1 g/dL 31.5-3 5.7 Not Available [facility] ([facility]) [address] [facility], [place], [address], 06/12/2024 08:24:24 06/11/19 25 06/12/2024 CBC WITH DIFFE RENTI AL/PL ATELE T RDW 12.0 % 11.6-1 5.4 Not Available [facility] ([facility]) [address] [facility], [place], [address], 06/12/2024 08:24:24 06/11/19 25 06/12/2024 CBC WITH DIFFE RENTI AL/PL ATELE T platelets 335 x10e3 /uL 150-45 0 Not Available [facility] ([facility]) [address] [facility], [place], [address], 06/12/2024 08:24:24 06/11/19 25 06/12/2024 CBC WITH DIFFE RENTI AL/PL ATELE T neutrophils 64 % notest ab. Not Available [facility] ([facility]) [address] [facility], [place], [address], 06/12/2024 08:24:24 06/11/19 25 06/12/2024 CBC WITH DIFFE RENTI AL/PL ATELE T lymphs 17 % notest ab. Not Available [facility] ([facility]) [address] [facility], [place], [address], 06/12/2024 08:24:24 06/11/19 25 06/12/2024 CBC WITH DIFFE RENTI AL/PL ATELE T monocytes 10 % notest ab. Not Available [facility] ([facility]) [address] [facility], [place], [address], 06/12/2024 08:24:24 06/11/19 25 06/12/2024 CBC WITH DIFFE RENTI AL/PL ATELE T eos 8 % notest ab. Not Available [facility] [facility]) [address] [facility], [place], [address], 06/12/2024 08:24:24 06/11/1906/12/2024 CBC WITH DIFFE RENTI AL/PL ATELE T basos 1 % notest ab. Not Available [facility] ([facility]) [address] [facility], [place], [address], 06/12/2024 08:24:24 06/11/19 25 06/12/2024 CBC WITH DIFFE RENTI AL/PL ATELE T neutrophils (absolute) 4.7 x10e3 /uL 1.4-7. 0 Not Available [facility] ([facility]) [address] [facility], [place], [address], 06/12/2024 08:24:24 06/11/19 25 06/12/2024 CBC WITH DIFFE RENTI AL/PL ATELE T lymphs (absolute) 1.2 x10e3 /uL 0.7-3. 1 Not Available [facility] ([facility]) [address] [facility], [place], [address], 06/12/2024 08:24:24 06/11/19 25 06/12/2024 CBC WITH DIFFE RENTI AL/PL ATELE T monocytes(ab solute) 0.8 x10e3 /uL 0.1-0. 9 Not Available [facility] ([facility]) [address] [facility], [place], [address], 06/12/2024 08:24:24 06/11/19 25 06/12/2024 CBC WITH DIFFE RENTI AL/PL ATELE T eos (absolute) 0.6 x10e3 /uL 0.0-0. 4 above high normal Not Available [facility] ([facility]) [address] [facility], [place], [address], 06/12/2024 08:24:24 06/11/19 25 06/12/2024 CBC WITH DIFFE RENTI AL/PL ATELE T baso (absolute) 0.0 x10e3 /uL 0.0-0. 2 Not Available [facility] ([facility]) [address] [place], [address], 06/12/2024 08:24:24 06/11/19 25 06/12/2024 CBC WITH DIFFE RENTI AL/PL ATELE T immature granulocytes 0 % notest ab. Not Available [facility] ([facility]) [address] [place], [address], 06/12/2024 08:24:24 06/11/19 25 06/12/2024 CBC WITH DIFFE RENTI AL/PL ATELE T immature grans (abs) 0.0 x10e3 /uL 0.0-0. 1 Not Available [facility] ([facility]) [address] [place], [address], 06/12/2024 08:24:24 06/11/19 25 06/12/2024 NT-WI OBNP nt-probnp 99 pg/mL 0-376 The follo [...] t 300 pg/mL Not Available [facility] ([facility]) [address] [place], [address], 06/13/2024 06:25:12 06/11/1906/12/2024 DRUG PROFI LE,UR ,9 DRUGS ,BUND amphetamines , urine NEGATI VE NG/mL cutoff =1000 Amphe tamin e test inclu lennox Amphe tamin e and Metha mphet amine . Not Available [facility] ([facility]) [address] [place], [address], 06/13/2024 06:25:13 06/11/19 25 06/12/2024 DRUG PROFI LE,UR ,9 DRUGS ,BUND barbiturate NEGATI VE NG/mL cutoff =300 Not Available [facility] ([facility]) [address] [place], [address], 06/13/2024 06:25:13 06/11/19 25 06/12/2024 DRUG PROFI LE,UR ,9 DRUGS ,BUND benzodiazepi martin NEGATI VE NG/mL cutoff =300 Not Available [facility] ([facility]) [address] [place], [address], 06/13/2024 06:25:13 06/11/19 25 06/12/2024 DRUG PROFI LE,UR ,9 DRUGS ,BUND cannabinoid NEGATI VE NG/mL cutoff =50 Not Available [facility] ([facility]) [address] [place], [address], 06/13/2024 06:25:13 06/11/19 25 06/12/2024 DRUG PROFI LE,UR ,9 DRUGS ,BUND cocaine (metab.) NEGATI VE NG/mL cutoff =300 Not Available [facility] ([facility]) [address] [place], [address], 06/13/2024 06:25:13 06/11/19 25 06/12/2024 DRUG PROFI LE,UR ,9 DRUGS ,BUND opiates NEGATI VE NG/mL cutoff =300 Opiat e test inclu lennox Codei ne and Morph ine only. Not Available [facility] ([facility]) [address] [place], [address], 06/13/2024 06:25:13 02/24/06/12/2024 DRUG PROFI LE,UR ,9 DRUGS ,BUND phencyclidin e NEGATI VE NG/mL cutoff =25 Not Available [facility] ([facility]) [address] [place], [address], 06/13/2024 06:25:13 06/11/19 25 06/12/2024 DRUG PROFI LE,UR ,9 DRUGS ,BUND methadone screen, urine NEGATI VE NG/mL cutoff =300 Not Available [facility] ([facility]) [address] [facility], [place], [address], 06/13/2024 06:25:13 06/11/1906/12/2024 DRUG PROFI LE,UR ,9 DRUGS ,BUND propoxyphene , urine NEGATI VE NG/mL cutoff =300 Eff ectiv e July 16, 2024, this test will be disco ntinu ed. Pleas e conta ct your [facility] r[facility] repre senta tive for sugge sted repla cemen t test optio ns. Not Available [facility] ([facility]) [address] [facility], [place], [address], 06/13/2024 06:25:13 06/11/1906/12/2024 TSH TSH 3.490 uIU/m L 0.450- 4.500 Not Available [facility] ([facility]) [address] [place], [address], 06/13/2024 06:25:14 06/11/1906/12/2024 PROST ATE-S PECIF IC [...] the prese nce or absen ce of [facility] [place] mo se. Not Available [facility] ([facility]) [address] [facility], [place], [address], 06/13/2024 06:25:15 06/11/19 25 06/12/2024 VITAM IN [...] D. Lyudmila yang DC: [facility] . 2. Maris catalan MF, Pepe ey [place], Narciso off-F errar i ORTEGA, et al. Evalu ation , treat ment, and preve ntion of vitam in D defic iency : an Endoc rine Socie ty clini samuel pract ice guide line. JCEM. 2010; 96(7) :1911 -30. Not Available [facility] ([facility]) [address] [facility], [place], [address], 06/13/2024 06:25:16 10/27/19 25 10/27/2024 BASIC METAB OLIC PANEL (7) glucose 102 mg/dL 70-99 above high normal Not Available [facility] ([facility]) [address] [facility], [place], [address], 10/27/2024 06:16:21 10/27/19 25 10/27/2024 BASIC METAB OLIC PANEL (7) BUN 14 mg/dL 8-27 Not Available [facility] ([facility]) [address] [place], [address], 10/27/2024 06:16:21 10/27/19 25 10/27/2024 BASIC METAB OLIC PANEL (7) creatinine 0.93 mg/dL 0.76-1 .27 Not Available [facility] ([facility]) [address] [place], [address], 10/27/2024 06:16:21 10/27/19 25 10/27/2024 BASIC METAB OLIC PANEL (7) eGFR 91 mL/mi n/1.7 3 >59 Not Available [facility] ([facility]) [address] [place], [address], 10/27/2024 06:16:21 10/27/19 25 10/27/2024 BASIC METAB OLIC PANEL (7) BUN/creatini ne ratio 15 10-24 Not Available [facility] ([facility]) [address] [place], [address], 10/27/2024 06:16:21 10/27/19 25 10/27/2024 BASIC METAB OLIC PANEL (7) sodium 140 mmol/ L 134-14 4 Not Available [facility] ([facility]) [address] [place], [address], 10/27/2024 06:16:21 10/27/19 25 10/27/2024 BASIC METAB OLIC PANEL (7) potassium 4.1 mmol/ L 3.5-5. 2 Not Available [facility] ([facility]) [address] [place], [address], 10/27/2024 06:16:21 10/27/19 25 10/27/2024 BASIC METAB OLIC PANEL (7) chloride 100 mmol/ L 96-106 Not Available [facility] ([facility]) [address] [facility], [place], [address], 10/27/2024 06:16:21 10/27/1910/27/2024 BASIC METAB OLIC PANEL (7) carbon dioxide, total 24 mmol/ L 20-29 Not Available [facility] ([facility]) [address] [facility], [place], [address], 10/27/2024 06:16:21 10/27/1910/26/2024 CBC, PLATE LET, NO DIFFE RENTI AL WBC 6.1 x10e3 /uL 3.4-10 .8 Not Available [facility] ([facility]) [address] [facility], [place], [address], 10/27/2024 06:16:22 10/27/1910/26/2024 CBC, PLATE LET, NO DIFFE RENTI AL RBC 4.22 x10e6 /uL 4.14-5 .80 Not Available [facility] ([facility]) [address] [facility], [place], [address], 10/27/2024 06:16:22 10/27/1910/26/2024 CBC, PLATE LET, NO DIFFE RENTI AL hemoglobin 12.5 g/dL 13.0-1 7.7 below low normal Not Available [facility] ([facility]) [address] [place], [address], 10/27/2024 06:16:22 10/27/1910/26/2024 CBC, PLATE LET, NO DIFFE RENTI AL hematocrit 39.5 % 37.5-5 1.0 Not Available [facility] ([facility]) [address] [facility], [place], [address], 10/27/2024 06:16:22 10/27/1910/26/2024 CBC, PLATE LET, NO DIFFE RENTI AL MCV 94 fL 79-97 Not Available [facility] ([facility]) [address] [place], [address], 10/27/2024 06:16:22 10/27/1910/26/2024 CBC, PLATE LET, NO DIFFE RENTI AL MCH 29.6 pg 26.6-3 3.0 Not Available [facility] ([facility]) [address] [place], [address], 10/27/2024 06:16:22 10/27/1910/26/2024 CBC, PLATE LET, NO DIFFE RENTI AL MCHC 31.6 g/dL 31.5-3 5.7 Not Available [facility] ([facility]) [address] [facility], [place], [address], 10/27/2024 06:16:22 10/27/1910/26/2024 CBC, PLATE LET, NO DIFFE RENTI AL RDW 12.8 % 11.6-1 5.4 Not Available [facility] ([facility]) [address] [place], [address], 10/27/2024 06:16:22 10/27/1910/26/2024 CBC, PLATE LET, NO DIFFE RENTI AL platelets 269 x10e3 /uL 150-45 0 Not Available [facility] ([facility]) [address] [place], [address], 10/27/2024 06:16:22 10/27/1910/26/2024 HEMOG LOBIN A1C hemoglobin A1C 5.8 % 4.8-5. 6 above high normal Predi abete s: 5.7 - 6.4 Diabe lizzy: >6.4 Glyce jay jay contr ol for adult s with diabe lizzy: <7.0 Not Available [facility] ([facility]) [address] [place], [address], 10/27/2024 06:16:24 05/07/1910 0505/07/2022 XR, chest , 2 view No observ ation record ed. [address], [place], [address], 05/10/2022 10:54:17 05/07/19 23 05/07/2022 XR, chest , 2 view No observ ation record ed. [address], [place], [address], 05/10/2022 10:54:26 06/09/19 23 06/09/2022 compl ete PFT w/ post [facility] hodil ator selam metry * No observ ation record ed. [address], [place], [address], 06/10/2022 11:36:06 12/09/19 23 12/08/2022 XR, chest , 2 view No observ ation record ed. [address], [place], [address], 12/09/2022 13:50:26 12/09/19 23 12/08/2022 CT, head + brain , w/o contr ast No observ ation record ed. [address], [place], [address], 12/09/2022 13:50:50 12/10/19 23 12/09/2022 , [facility] gram No observ ation record ed. [address], [place], [address], 12/09/2022 13:51:24 12/10/19 23 12/08/2022 CT, chest , w/o contr ast No observ ation record ed. [address], [place], [address], 12/09/2022 13:52:10 01/04/20 24 01/04/2024 CT, brain , w/o contr ast No observ ation record ed. [address], [place], [address], 06/11/2024 14:16:13 01/04/20 24 01/04/2024 XR, facia l bones No observ ation record ed. [address], [place], [address], 06/11/2024 14:17:13 08/04/19 25 08/03/2024 XR, chest No observ ation record ed. [address], [place], [address], 10/26/2024 09:51:27 08/15/19 25 08/14/2024 CT, angio gram, chest , w/ contr ast No observ ation record ed. [address], [place], [address], 10/26/2024 09:51:27 09/19/19 25 09/18/2024 XR, chest No observ ation record ed. [address], [place], [address], 10/26/2024 09:51:27 09/19/19 25 09/18/2024 CT, chest , w/o contr ast No observ ation record ed. [address], [place], [address], 10/26/2024 09:51:27 09/30/19 25 09/29/2024 XR, kidne y + urete r + bladd er No observ ation record ed. [address], [place], [address], 10/26/2024 09:51:26 09/30/19 25 09/28/2024 XR, chest No observ ation record ed. [address], [place], [address], 10/26/2024 09:51:27 09/30/19 25 09/29/2024 US, duple x, venou s, lower extre mity No observ ation record ed. [address] [facility], [place], [address], 10/26/2024 09:51:26 10/01/19 25 09/30/2024 XR, chest No observ ation record ed. [address], [place], [address], 10/26/2024 09:51:26 10/02/19 25 10/01/2024 XR, chest No observ ation record ed. [address] [facility], [place], [address], 10/26/2024 09:51:26 10/03/19 25 10/02/2024 XR, chest No observ ation record ed. [address] [address], [place], [address], 10/26/2024 09:51:26 12/04/19 25 12/03/2024 six minut e walk test* No observ ation record ed. [address] [facility], [place], [address], 12/03/2024 17:28:48 12/04/19 25 12/03/2024 PFT, compl ete No observ ation record ed. [address] [facility], [place], [address], 12/03/2024 17:29:26 Result Notes Documentation Provider Name and Address Organization Details Recorded Time Ct, Angiogram, Chest, W/ Contrast : Severe Emphysema Dominick Kennedy MD Attn: Accounting,[address] [place], [address], [place] [facility] 10/26/2024 09:51:27 Problems Name Problem SNOMED Code Status Onset Date Resolution Date Notes Provider Name and Address Organization Details Recorded Time Chronic obstructi ve pulmonary disease 70525268 Active 2019 Not Available [facility] 4 15:45:45 Congestiv e heart failure 68604908 Active 2019 Not Available [facility] 4 15:45:45 Hypertens juan disorder 42721356 Active 2019 Not Available [facility] 4 15:45:45 Screening for malignant neoplasm of colon Active 2019 Not Available [facility] 4 15:45:45 Harmful pattern of use of opioid 4613314 Active 2019 per ER note on 03/18/20 he snorts and injects fentanyl Not Available [facility] 4 15:45:45 [place]coh[place] m 2185813 Active 2020 Not Available [facility] 4 15:45:45 Obesity 520547552 Active 2022 Not Available [facility] 4 15:45:45 Fentanyl dependenc e 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 Not Available [facility] 4 15:45:45 Dependenc e on supplemen jack oxygen 13391693861 7 Active 2024 Dominick Kennedy MD Attn: Accounting ,[address] [place], [address] , [facility] 5 19:32:23 History of nicotine dependenc e Active 2024 Dominick Kennedy MD Attn: Accounting ,[address] [place], [address] , [place] [facility] 5 19:33:53 Tetanus vaccinati on declined by patient 637756923 Active 2024 Dominick Kennedy MD Attn: Accounting ,[address] [place], [address] , [place] [facility] 5 19:33:57 Benign essential hypertens ion 4874288 Active 2024 Dominick Kennedy MD Attn: Accounting ,[address] [place], [address] , [place] [facility] 5 09:37:26 Disorder of lipid metabolis m 649914072 Active 2024 Dominick Kennedy MD Attn: Accounting ,[address] [place], [address] , [facility] 5 09:37:33 Impaired fasting glycemia 509328505 Active 2024 Dominick Kennedy MD Attn: Accounting ,[address] [place], [address] , [facility] 5 10:03:52 Hyperchol esterolem ia 89543979 Active 2024 Dominick Kennedy MD Attn: Accounting ,[address] [place], [address] , [facility] 5 10:07:01 Obstructi ve sleep apnea syndrome 48713175 Active 2024 Dominick Kennedy MD Attn: Accounting ,[address] [place], [address] , [facility] 5 10:59:54 Problem Notes None recorded. Procedures Surgical History Date Name Laterality Status Provider Name and Address Organization Details Recorded Time 5 Diabetic Foot Exam completed Dominick Kennedy MD Attn: Accounting, [place], [address], [facility] 06/11/2024 19:37:15 1 Routine Foot Care completed CAROL SARKAR DPM [address] [place], [address], [facility] 02/10/2021 17:00:45 7 lobectomy of lower lobe of right lung completed JOHN TATE NP [address] [place], [address], [place] [facility] 08/24/2019 11:49:34 Oral surgery procedure completed Dominick Kennedy MD Attn: Accounting,[address] [place], [address], [place] [facility] 06/11/2024 14:34:21 Imaging Results None recorded. Procedure Notes None [...] AND 1/2 TABLETS BY MOUTH TWICE DAILY DIRECTED FOR CONGESTIV [...] TAKE 1 TABLET BY MOUTH EVERY DAY 2024 active Not Available Not Available Not Avai lable ipratropium 0.5 mg-albutero l 3 mg (2.5 mg base)/3 mL nebulizatio n soln USE 3 ML VIA NEBULIZER EVERY 4 HOURS NEEDED FOR SHORTNESS OF BREATH OR [...] MOUTH EVERY WEEK DIRECTED FOR 42 DAYS. 10/26 completed Not Available Not Available Not Available metoprolol succinate ER 50 mg tablet,exte nded release 24 hr TAKE 1 TABLET BY MOUTH DAILY 09/21 completed Not Available Not Available Not Available doxepin 25 mg capsule TAKE 1 CAPSULE BY MOUTH DAILY AT BEDTIME active Not Available Not Available [...] tablet TAKE 2 TABLETS BY MOUTH DAILY 10/26 completed Not Available Not Available Not Available clindamycin HCl 150 mg capsule Take 1 capsule every 6 hours by oral route for 7 days. 08/23 completed Not Available Not Available Not Available cyanocobala min (vit B-12) 1,000 mcg tablet TAKE 1 TABLET BY MOUTH DAILY [...] completed Not Available Not Available Not Available spironolact one 25 mg tablet TAKE 1 TABLET BY MOUTH DAILY active Not Available Not Available No t Available carbamazepi ne 200 mg tablet 04/27 completed Not Available Not Available Not Available chlordiazep oxide 25 mg capsule 04/27 completed Not Available Not Available Not Available nicotine (polacrilex ) 4 mg gum CHEW 1 PIECE OF GUM NEEDED FOR NICOTINE CRAVINGS. 10/26 completed Not Available Not Available Not Available cephalexin 500 mg capsule 03/15 completed Not Available Not Available Not Available buspirone 10 mg tablet TAKE 1 TABLET BY MOUTH TWICE DAILY active Not Available Not Available No t Available prednisone 50 mg tablet TAKE 1 [...] PATCH TO THE SKIN ONCE A DAY 10/26 completed Not Available Not Available Not Available lisinopril 20 mg-hydrochl orothiazide 25 mg [...] completed Not Available Not Available Not Available ergocalcife rol (vitamin D2) 1,250 mcg (50,000 unit) capsule TAKE 1 CAPSULE BY MOUTH ONE DAY A WEEK active Not Available Not Available No t Available ibuprofen 600 mg tablet Take 1 tablet 3 times a day by oral route for 30 days. 06/11 completed Not Available Not Available Not Available levofloxaci n 750 mg tablet TAKE 1 TABLET BY MOUTH DAILY 10/26 completed Not Available Not Available Not Available [...] MOUTH EVERY 12 HOURS FOR 10 DAYS 11/28 /2022 completed Not Available Not Available Not Available nicotine 7 mg/24 hr daily transdermal patch UNWRAP AND APPLY 1 PATCH DIRECTED DAILY 10/26 completed Not Available Not Available Not Available azithromyci n 500 mg tablet TAKE 1 TABLET BY MOUTH DAILY FOR 3 DAYS 10/26 completed Not Available Not Available Not Available [...] tablet TAKE 1 TABLET BY MOUTH EVERY MORNING active Not Available Not Available No t Available buprenorphi ne 8 mg-naloxone 2 mg [...] REPEAT AFTER 3 MINUTES IF NO RESPONSE. 10/26 completed Not Available Not Available Not Available metoprolol tartrate 37.5 mg tablet TAKE 1 TABLET BY MOUTH DAILY active Not Available Not Available No t Available Mavyret 100 mg-40 mg tablet 06/11 completed Not Available Not Available Not Available Trelegy Ellipta 100 mcg-62.5 mcg-25 mcg powder for inhalation INHALE 1 PUFF BY MOUTH DAILY active Not Available Not Available No t Available Afluria Quad 0435-1075 (PF) 60 mcg (15 mcg x 4)/0.5 mL IM syringe 04/27 completed Not Available Not Available Not Available BinaxNOW COVID-19 Ag Self Test kit TEST DIRECTED TODAY 06/11 completed Not Available Not Available Not Available Vitals Date Recorded Heart rate Oxygen saturation Oxygen saturation in Arterial blood by Pulse oximetry Provider Name and Address Organization Details Last Updated DateTime 05/20/2022 100 /min 97 % 97 % VICTORIA SPARKS Attn: Accounting, [address] [place], [address], [facility] 05/22/2022 08:58:57 Date Recorded Body height Body mass index (BMI) Body weight Systolic And Diastolic Provider Name and Address Organization Details Last Updated DateTime 05/20/2022 182.88 cm 34.2 kg/m2 131936.08 g 130/84 mm[Hg] Carolina Babin MA [facility] 05/20/2022 15:34:10 Date Recorded Body height Body mass index (BMI) Body weight Heart rate Oxygen saturation Oxygen saturation in Arterial blood by Pulse oximetry Inhaled oxygen flow rate Respiratory rate Body temperature Systolic And Diastolic Provider Name and Address Organization Details Last Updated DateTime 5 182.88 cm 34.7 kg/m2 420137. 65 g 104 /min 92 % 92 % 4 L/min 18 /min 98.5 [degF] 126/60 mm[Hg] Tuyet Chou MA [facility] 5 14:14:20 Date Recorded Body height Body mass index (BMI) Body weight Heart rate Oxygen saturation Oxygen saturation in Arterial blood by Pulse oximetry Systolic And Diastolic Provider Name and Address Organization Details Last Updated DateTime 3 182.88 cm 35.7 kg/m2 361551. 89 g 103 /min 94 % 94 % 134/86 mm[Hg] Carolina Babin MA [facility] 3 14:10:00 Date Recorded Body height Body mass index (BMI) Body weight Heart rate Oxygen saturation Oxygen saturation in Arterial blood by Pulse oximetry Respiratory rate Body temperature Systolic And Diastolic Provider Name and Address Organization Details Last Updated DateTime 5 182.88 cm 38.1 kg/m2 838150. 02 g 94 /min 95 % 95 % 18 /min 98.5 [degF] 124/66 mm[Hg] Tuyet Chou MA [facility] 5 09:29:20 Date Recorded Body height Body mass index (BMI) Body weight Heart rate Oxygen saturation Oxygen saturation in Arterial blood by Pulse oximetry Systolic And Diastolic Provider Name and Address Organization Details Last Updated DateTime 2 182.88 cm 34.9 kg/m2 286973. 24 g 107 /min 96 % 96 % 110/68 mm[Hg] VICTORIA SPARKS Attn: Gentry padgett,[address] [place], [address], [facility] 2 15:31:32 Social History Question Answer Notes LastModified by Organizat ion Details LastModified Time Tobacco Smoking Status Former Smoker Tuyet Chou MA null, [facility] 10/26/2024 09:30:56 How Many Years Have You Consumed Alcohol? 26 Information not available 06/11/2024 What Is Your Level Of Caffeine Consumption? Occasional Information not available 06/28/2019 How Much Tobacco Do You Chew? None Information not available 08/24/2019 Which Illicit Or Recreational Drugs Have You Used? Denies Information not available 08/24/2019 Hard Of Hearing Or Deaf In One Or Both Ears? No Tinnitis Information not available 08/24/2019 Legally Blind In One Or Both Eyes? No Information not available 06/28/2019 Live Alone Or With Others? With Others Information not available 06/28/2019 What Was The Date Of Your Most Recent Tobacco Screening? 10/26/2024 Information not available 10/26/2024 At What Age Did You Start Smoking Tobacco? 12 Information not available 06/11/2024 How Much Tobacco Do You Smoke? 0.25 PPD 2 PPD Until For 11/2023 4-5 Cigs Per Day Information not available 06/11/2024 General Stress Level Medium Information not available 06/28/2019 Has Tobacco Cessation Counseling Been Provided? Yes [email or web address] Information not available 09/21/2022 On What Date Was Tobacco Cessation Counseling Provided? 06/11/2024 Information not available 06/11/2024 How Many Years Have You Smoked Tobacco? 20 [email or web address] Information not available 09/05/2018 Sex: Male Functional Status Question Answer Note LastModified by Organizat ion Details LastModified Time Do you use any illicit or recreational drugs? No Cocaine until ~ 11/2023 Heroin use until about a year ago ~ 05/2023 Information not available 06/11/2024 Do you or have you ever used any other forms of tobacco or nicotine? No Information not available 06/11/2024 What is your level of alcohol consumption? Moderate Couple shots of fireball a night. Information not available 10/26/2024 Do you or have you ever used smokeless tobacco? Never used smokeless tobacco Information not available 06/28/2019 Are you able to care for yourself independently? Yes Information not available 06/28/2019 Do you or have you ever used e-cigarettes or vape? Never used electronic cigarettes Information not available 06/28/2019 What is your exercise level? [...] History Condition Response Coronary Artery Disease N Hyperthyroidism N Depression N COPD N Blood Clots N Anxiety Disorder N Acid Reflux (GERD) N Stroke N Skin Problems N Tuberculosis N Asthma N Liver Disease N Thyroid Problems N GI Problems N Anemia N Heart Attack ([place]) N Diabetes N Hyperlipidemia Y Heart Disease Y Hypertension Y Heart Failure Y Gout N Other N High Blood Pressure Y Atrial Fibrillation N Muscle, Joint, or Bone Problems N Cancer N Headaches N Kidney or Bladder Problems N Allergies N GERD/Reflux N Hepatitis N Hypothyroidism N High Cholesterol N Osteoporosis/Osteopenia N Seizures/Epilepsy N Sleep Apnea N Osteoporosis N Immunizations Vaccine Type Date Status Note Provider Nam e and Address Organization Details Recorded Time Influenza, split virus, quadrivalent, PF 8 completed Tuyet Chou MA null, [place] [facility] 06/11/2024 14:03:46 Influenza, split virus, quadrivalent, PF 2 completed Not Available [facility] 10/26/2024 09:14:52 Hep A, adult 3 completed Not Available [facility] [facility] 10/26/2024 09:14:52 HepB-CpG 3 completed Not Available [facility] 10/26/2024 09:14:52 COVID-19, mRNA, LNP-S, PF, 100 mcg/0.5mL dose or 50 mcg/0.25mL dose 1 completed Dorinda Franco [place], [place] [facility] 08/08/2020 15:03:55 COVID-19, mRNA, LNP-S, PF, 100 mcg/0.5mL dose or 50 mcg/0.25mL dose 1 completed Carlito Sue [place], [place] [facility] 09/10/2020 16:31:25 Pneumococcal conjugate PCV20, polysaccharide [id number] conjugate, adjuvant, PF 3 completed VICTORIA SPARKS Attn: Accounting,[address] [place], [address], [place] [facility] 09/30/2022 13:52:31 Past Encounters Encounter ID Performer Location Encounter Start Date Encounter Closed Date Diagnosis/Indication Diagnosis SNOMED-CT Code Diagnosis ICD10 Code Diagnosis IMO Codes Diagnosis Note [id number] Nora Pierce MD [facility] 47 [address] [facility] [address] [place] [address] 03/16/2018 16:07:50 03/17/2018 14:42:04 Chronic obstructive pulmonary disease 11403415 J44.9 Chronic lung disease, likely COPD Patient recently seen in hospital diagnosed with COPD exacerbati on, has had chronic use of albuterol inhaler as well as albuterol nebulizers . No history of childhood asthma. Positive significan t smoking history. Physical exam remarkable for scattered wheezes bilaterall y. A s patient was started on cephalospo rin recent hospitaliz ation of reported not taking medicine on discharge reasonable to restart and complete the total course of Cefdinir 300 mg twice daily 6 days P ro Air albuterol as needed shortness of breath wheezing P FTs evaluate lung functional status Congestive heart failure 42681181 I50.9 Heart failure with preserved ejection fraction [...] extremity edema with some stasis dermatitis . C ontinue hypertensi on management , lisinopril /hydrochlo rthiazide 20/12.5 mg daily C ardiology referral new onset heart failure M etoprolol succinate 25 mg daily L asix 40 mg daily as needed significan t lower extremity edema, patient will most likely need to be on chronic Lasix dose Cellulitis 619311466 L03 .90 LE cellulitis , subsequent encounter, resolved Patient recently seen in hospital for lower extremity cellulitis and started on cephalospo rin. Patient stated he did not complete a cephalospo rin outpatient course. Physical exam remarkable for lower extremity edema with some mild healing wounds non-erythe matous noninfecte d appearing. R ecent Cefdinir 300 mg twice daily 6 days to complete course as prescribed at hospital [id number] Omar Peace DO [facility] 47 3 [facility] [address] [place] [address] 09/05/2018 14:52:54 09/06/2018 10:18:02 Chronic obstructive pulmonary disease 42386285 J44.9 COPD Patient likely has COPD as he had no history of childhood asthma and has approximat kamran 1 pack/day 20-year history of smoking and citing some occasional shortness of breath. -Albuterol as needed shortness of breath - Pulm referral for PFTs Neck pain 47462384 M54.2 Neck pain Patient fallen off his [...] - Cervical neck x-ray Low back pain 873346671 M54.5 Back pain Patient endorsed chronic history [...] spine - Tylenol scheduled - Ibuprofen scheduled [id number] VICTORIA SPARKS [facility] [address] [place] [address] 04/27/2019 14:29:14 04/30/2019 09:34:07 Numbness of hand 184841360 R20.0 Chronic ob structive pulmonary disease 09096909 J44.9 COPD Patient likely has COPD as he had no history of childhood asthma and has approximat kamran 1 pack/day 30-year history of smoking and citing some occasional shortness of breath. -Albuterol as needed shortness of breath - LDCT as 53 with over 30 pack year smoker- stop smoking Neck pain 47563530 M54.2 Neck pain Patient fallen off his couch over 9 months ago which has resulted in mild neck pain and some persistent forward flexion 2/2 pain. Physical exam today nothing concerning for significan t fracture. never got xray ordered by last provider. - Tylenol scheduled - Ibuprofen schedule Low back pain 026555592 M54.5 Patient endorsed chronic history of low [...] appreciate d - Ibuprofen scheduled Heart failure 11188896 I 50.9 patient has a history of heart failure. Sending to cardiology . Headache 01721501 R51 patient endorses 9 months of headaches after falling off couch. Headaches are occipital and dull in nature. They happen everyday. He has the worst headache last week but did not seek medical help despite telling him to go. - educated on headahces and going to ER if worst headache, develops weakness on one side, slurring words Essential hypertension 20564115 I10 BP 130/80, WNLAdvised to check BP regularly with a goal of <140/90, if BP consistent ly >140/90, advised to contact clinic Discussed DASH diet Advised 30 minutes of exercise minimum daily Advised tobacco, alcohol, caffeine all increase BP Advised goal for BP is <140/90 Hypercholesterolemia 136 64744 E78.00 patient given labs as he is not fasting today. Prediabetes 739704089 R7 3.03 Chest pain on exertion 69641445 R07.89 patient has chest pain on exertions. [...] away. Screening for malignant neoplasm of colon 896326533 Z12.11 Has never had a colonoscop y. Patient agrees to have this done. [id number] Rubina Vila MD [facility] [address] [place] [address] 05/02/2019 13:48:25 05/08/2019 11:51:44 Hyperlipidemia 78156944 E78.5 [id number] VICTORIA SPARKS [facility] [address] [place] [address] 06/28/2019 09:58:09 06/29/2019 09:37:49 Abscess 693305766 L02.91 patient has pain in for x 3 days. On exam patient has abscess that has been draining some. He refused to let me drain it here. Will start clindamyci n to cover for MRSA and pseudomona s. [place] around area and asked patient to report to ER if redness continues to spread. Patient is to go home and apply warm compress to allow area to continue draining. He is to f/u next week in infection persists and needs xray to asess for bone infection. Essential hypertension 70997127 I10 BP 122/96, not WNL, did not take all medication todayAdvis ed to check BP regularly with a goal of <140/90, if BP consistent ly >140/90, advised to contact clinic Discussed DASH diet Advised 30 minutes of exercise minimum daily Advised tobacco, alcohol, caffeine all increase BP Advised goal for BP is <140/90 Heart failure 47227847 I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
[2025-01-29] MEDS: HYDROmorphone HCL INJ (*CRX) 1 MG/ML SYR 0.5 MG IV PUSH (18:17)
[2025-01-29] MEDS: SODIUM CHLORIDE 0.9% IV 1,000 ML 500 ML IV CONT (18:20)
[2025-01-29 18:23] VITALS: BP 128/63; PULSE 104; RESP 17; O2SAT 94
[2025-01-29] MEDS: ceFAZolin 1 GM in SODIUM CHLORIDE 0.9% IV 50 ML 100 ML IVPB (18:23)
[2025-01-29 18:33] LABS: INR 1.2; Prothrombin Time 15.1 Seconds (11.1-14.7)
[2025-01-29 18:34] LABS: Partial Thromboplastin Time 31.5 Seconds (22.3-36.8)
--- NOTE | 2025-01-29 19:19 | PC.NURSE ---
during bedside report pt verbally aggressive towards this rn and day rn ferny brower Pt verbalized I am going to rip everything off and leave one way or another. The dumb looking lady doesnt get to tell me i have to stay or go.EDP nat aware and at bedside with ama form.
[2025-01-29 20:03] VITALS: BP 119/63; PULSE 99; RESP 13; TEMP 36.5; O2SAT 94
== END 2025-01-29 20:05 | disposition left against medical advice (07) ==
PROVIDERS: Student in an Organized Health Care Education/Training Program; Emergency Provider Registered Nurse; PCP Internal Medicine
DX: L03.116 Cellulitis of left lower limb (principal)
CPT/HCPCS: 36415; 71045; 73590; 80053; 82077; 83605; 83735; 84100; 85025; 85610; 85730; 86140; 87040; 93005; 93971; 96361; 96365; 96375; 99284; J0690; J1171; J7030

== ENCOUNTER 2025-02-19 13:30 | Outpatient (RCR) | payer OTHER, SELFPAY | END 2025-03-01 14:33 | disposition home or self-care (01) | LOC: ANHCPREHAB 13:30 | PROVIDERS: PCP Internal Medicine Infectious Disease; Visit Provider Internal Medicine Pulmonary Disease | DX: J44.9 Chronic obstructive pulmonary disease, unspecified (principal) | CPT/HCPCS: 94625 ==

== ENCOUNTER 2025-02-21 10:40 | Observation (INO) | payer OTHER, SELFPAY ==
[2025-02-21] VITALS (9 sets, daily range): BP systolic 127–153; BP diastolic 58–77; PULSE 85–102; RESP 16–22; TEMP 36.2–36.4; O2SAT 97–100; BMI 36.1
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
--- NOTE | ~2025-02-21 | US_ITS ---
EXAM/PROCEDURE: US venous doppler LE BI HISTORY: edema COMPARISON: None available. TECHNIQUE: Real-time exam performed by technologist directed toward evaluation of both lower extremity deep venous systems. Exam limited due to body habitus. FINDINGS: No DVT seen, however the peroneal vein on the right side, as well as the peroneal and posterior tibial veins on the left side are not evaluated. Lymph nodes are noted in both inguinal regions with the largest on the right side measuring 4.1 x 4.0 cm. The largest on the left side measures 4.4 x 3.7 cm. IMPRESSION: Somewhat limited exam demonstrating no evidence of DVT. Bilateral inguinal lymphadenopathy is noted; correlate clinically for presentation suggestive of infection or neoplasia. Reviewed, dictated and finalized at location A. SCIENCE TECHNICIAN IMPRESSION: Somewhat limited exam demonstrating no evidence of DVT. Bilateral i nguinal lymphadenopathy is noted; correlate clinically for presentation suggest juan of infection or neoplasia.
--- NOTE | ~2025-02-21 | XR_ITS ---
Examination: XR chest 2V Clinical History: sob, swelling R FOOT OOZING Comparison: 01/29/2025 Technique: PA and Lateral Findings: Cardiomediastinal silhouette normal size and configuration. Diffusely increased interstitial markings. No focal airspace consolidation or pleural effusion. Left CP angle opacity from epicardial fat pad. Eventration right hemidiaphragm. No acute bony abnormality. IMPRESSION: 1. Emphysema. 2. Mild superimposed interstitial pulmonary edema and/or pneumonitis cannot be excluded. Reviewed, dictated and finalized at location R. ING SETTER
--- NOTE | 2025-02-21 10:44 | ECG_ITS ---
Test Date: 2025-02-21 10:54:18 Measurements Intervals [place] Rate: 91 P: 47 FL: 196 QRS: 30 QRSD: 110 T: 57 QT: 362 QTc: 445 Interpretive Statements SINUS RHYTHM Compared to ECG 01/29/2025 16:37:03 Sinus tachycardia no longer present Incomplete right bundle-branch block no longer present Myocardial infarct finding no longer present Electronically Signed On 02-21-2025 11:31:37 LIVER TRIMMER by Elpidio Leblanc M.D.
[2025-02-21 11:20] LABS: Hematocrit 37.8 % (42.0-52.0); Hemoglobin 11.8 g/dL (14.0-18.0); Immature Granulocyte Percent A 0.4 % (0-0.5); Lymphocytes Absolute Auto 1.39 K/mm3 (0.9-3.2); Mean Corpuscular HGB Conc 31.2 g/dl (32-36); Mean Corpuscular Hemoglobin 28.6 pg (26-34); Mean Corpuscular Volume 91.5 fl (80-100); Nucleated Red Blood Cells Absolute Auto 0.000 K/mm3 (0.0-0.012); Nucleated Red Blood Cells Perc 0.0 % (0.0-0.2); Platelet Count Result 258 k/mm3 (150-375); Red Blood Count 4.13 M/mm3 (4.6-6.20); White Blood Count 8.1 K/mm3 (4.5-10.0)
[2025-02-21 11:38] LABS: Alanine Aminotransferase 13 U/L (6-50); Albumin Level 4.4 g/dL (3.5-5.1); Alkaline Phosphatase 93 U/L (38-126); Anion Gap 9 mmol/L (4-12); Aspartate Amino Transferase 24 U/L (17-59); Bilirubin,Total 0.4 mg/dL (0.2-1.3); Blood Urea Nitrogen 21 mg/dL (9-20); Calcium 8.9 mg/dL (8.4-10.2); Carbon Dioxide 35 mmol/L (22-30); Chloride 89 mmol/L (98-107); Estimated CRCL calculation 100 ml/min; Estimated Glomerular Filt Rate > 60; Glucose 128 mg/dL (65-110); INR 1.1; Partial Thromboplastin Time 31.5 Seconds (22.3-36.8); Potassium 3.7 mmol/L (3.4-5.0); Prothrombin Time 14.3 Seconds (11.1-14.7); Sodium 133 mmol/L (137-145); Total Protein 9.5 g/dL (6.3-8.2)
[2025-02-21 11:44] LABS: NT Pro B Type Natriuretic Pept 66 pg/mL (19.9-100); Troponin I < 0.012 ng/mL (0.000-0.034)
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
--- NOTE | 2025-02-21 12:34 | PC.NURSE ---
Lab contacted to add on additional lab work including Mag, ESR, and CRP
[2025-02-21 12:42] LABS: Magnesium 1.9 mg/dL (1.6-2.3)
[2025-02-21 12:50] LABS: CRP 3.5 mg/dL (<1.0)
[2025-02-21] MEDS: VANCOMYCIN 1,250 MG/NS 250 ML 1,250 MG/250 ML BAG 166.67 MG IVPB ×2 (15:43→17:24)
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
--- OUTSIDE RECORDS SUMMARY | 2025-02-21 18:45 | XMS_ITS | Clinical Summary ---
Author Organization [facility] [address] Address [address] [place] [address] Care Team Providers Care Continuous Wave Operator Name Role Phone Tomeka Knight Primary [...] (05/14/2022): Added automatically from request for surgery [id number] Obesity (BMI 30.0-34.9) 04/30/2022 Assessment & Plan (04/30/2022 4:49 PM CREPING MACHINE OPERATOR HELPER): Diet and exercise. Right knee pain 04/28/2022 Assessment & Plan (04/29/2022 1:57 PM CREPING MACHINE OPERATOR HELPER): Chronic. Right knee MRI 02/2022 demonstrated fracture of right medial femoral condyle, tear of right medial meniscus, and effusion/synovitis. Ortho recommended non op, WBAT. Has not followed up with ortho after discharge. -Encourage ortho follow up -Voltaren gel -APAP -seen by PT/OT; will discharge with walker and home therapy Assessment & Plan (04/28/2022 1:14 AM CREPING MACHINE OPERATOR HELPER): Chronic. Right knee MRI 02/2022 demonstrated fracture of right medial femoral condyle, tear of right medial meniscus, and effusion/synovitis. Ortho recommended non op, WBAT. Has not followed up with ortho after discharge. -Encourage ortho follow up -Voltaren gel -APAP -PT/OT Alcohol abuse 04/28/2022 Assessment & Plan (04/28/2022 2:18 PM CREPING MACHINE OPERATOR HELPER): Drinks 2- 3 shots before bed. No active withdrawals. -Thiamine, folate -Encourage Cessation -Monitor for withdrawal Assessment & Plan (04/28/2022 1:15 AM CREPING MACHINE OPERATOR HELPER): Drinks 2- 3 shots before bed. No active withdrawals. -Thiamine, folate -Encourage Cessation -Monitor for withdrawal Elevated alkaline phosphatase level 04/28/2022 Assessment & Plan (04/30/2022 4:09 PM CREPING MACHINE OPERATOR HELPER): Unclear etiology. HCV positive. GGTP elevated. Intra and extrahepatic dilatation noted on US; MRI to be performed later this evening. Assessment & Plan (04/28/2022 1:15 AM CREPING MACHINE OPERATOR HELPER): Unclear etiology. HCV positive. -Check GGT and Liver ultrasound for now. HCV (hepatitis C virus) 04/28/2022 Assessment & Plan (04/28/2022 2:20 PM CREPING MACHINE OPERATOR HELPER): Chronic and untreated. Missed ID clinic appointment 04/20/22; stated getting a ride is the problem. -Genotype pending. -Needs outpatient follow up. Assessment & Plan (04/28/2022 1:16 AM CREPING MACHINE OPERATOR HELPER): Chronic and untreated. Missed ID clinic appointment 04/20/22. -Needs outpatient follow up. Acute on chronic diastolic heart failure 023 Assessment & Plan (04/29/2022 1:54 PM CREPING MACHINE OPERATOR HELPER): TTE with normal EF. Previously g1DD and increased RVSP. -S/P 60mg IV Lasix in ED, then 40mg IV BID daily -Will change to Lasix 40mg po 04/30 -Continue metoprolol, statin, ASA Assessment & Plan (04/28/2022 1:17 AM CREPING MACHINE OPERATOR HELPER): TTE with normal EF. Previously g1DD and increased RVSP. Hypervolemic on examination today. -S/P 60mg IV Lasix in ED, continue 40mg IV BID daily -Monitor electrolytes and replete -Continue metoprolol, statin, ASA Venous stasis dermatitis of both lower extremiti es 04/27/2022 Assessment & Plan (04/29/2022 1:54 PM CREPING MACHINE OPERATOR HELPER): Chronic venous stasis dermatitis. No infectious symptoms, [...] following. Assessment & Plan (04/28/2022 1:10 AM CREPING MACHINE OPERATOR HELPER): Chronic venous stasis dermatitis. No infectious symptoms, normal lactate, no fevers, and no WBC making infection less concerning though given ulcer on left lateral leg, cannot rule out superimposed infection. Also has prior dopplers demonstrating chronic DVT at the level of the popliteal vein in the left. Post thrombotic changes could be contributing though bilateral symptoms. Discussed with vascular collection systems technician about AC in chronic DVTs and no [...] 09/20/2020 Assessment & Plan (04/30/2022 4:08 PM CREPING MACHINE OPERATOR HELPER): Elevated total protein thought to be related to HCV. -Check SPEP/UPEP given alk phos elevation. Immunofixation unremarkable. UPEP pending. -Needs to follow up with ID for HCV treatment. Assessment & Plan (04/28/2022 1:13 AM CREPING MACHINE OPERATOR HELPER): Elevatedt total protein thought to be related [...] 08/22/2019 Assessment & Plan (04/30/2022 4:09 PM CREPING MACHINE OPERATOR HELPER): Smokes @ 1ppd -Duonebs for now -Smoking cessation; wants nicotine patch in the hospital; states he has some at home and does not need any prescribed. Assessment & Plan (04/28/2022 1:11 AM CREPING MACHINE OPERATOR HELPER): Wheezing bilaterally. Denies SOB. Still smoking. Not [...] abuse Assessment & Plan (04/30/2022 4:07 PM CREPING MACHINE OPERATOR HELPER): Active use of Fentanyl. No longer followed in clinic for Suboxone; was being followed at [facility] in [place] up until 2mo ago per pt. -Encourage cessation -Seen for substance use. Pt is currently on patch. When discussing f/u at the [facility], he reports that he plans on quitting on his own. On further discussion, he agreed to an appointment - he will be seeing them on Tuesday. Assessment & Plan (04/28/2022 1:12 AM CREPING MACHINE OPERATOR HELPER): Active use of Fentanyl. No longer followed [...] Assessment & Plan (08/22/2019 5:28 AM CDT): [place] most likely to be drug-induced reaction. No [...] How often do you attend chur or cheondoism services? Never 02/24/2022 Do you belong to any clubs o r organizations such as amish groups, unions, fraternal or athletic groups, or [...] place to sleep or slept in a correction (including now)? No 02/24/2022 Personal Safety Answer Date Recorded Have you ever been in or are you currently in a harmful physical or emotional relationship or is someone making you feel afraid or unsafe? Denies 11/26/2022 Sex and Gender Information Value Date Recorded Sex Assigned at Not on file Legal Sex Male 6:41 PM CREPING MACHINE OPERATOR HELPER Gender Identity Not on file Sexual Orientation [...] (258 lb 6.4 oz) 06/04/2022 9:57 AM CREPING MACHINE OPERATOR HELPER Height 182.9 cm (6' 0.01) 06/04/2022 9:57 AM CS T Body Mass Index 35.04 06/04/2022 9:57 AM CREPING MACHINE OPERATOR HELPER Plan of Treatment Health Maintenance Due Date [...] HEPATITIS C GENOTYPE Routine 06/04/2022 11:06 AM CREPING MACHINE OPERATOR HELPER Acute hepatitis C virus infection without hepatic coma CT ABDOMEN PELVIS WO CONTRAST 09/06/2020 12:00 AM CDT from Last 3 Months or Most Recently Relevant to Health Maintenance Results * Hepatitis C genotype (06/04/2022 11:06 AM CREPING MACHINE OPERATOR HELPER) HCV genotype [facility] Comment: HCV Genotype, S was cancelled on 06/09/2022 at 16:01; Duplicate test request. Test Performed by: [facility] [address] [place] [address] Manager Storage: Harpal Gregory M.D. Ph.D.; CLIA# [id number] Blood 06/04/2022 11:0 6 AM CREPING MACHINE OPERATOR HELPER 06/04/2022 1:32 PM CREPING MACHINE OPERATOR HELPER Gudelia Singh MD LAB MICROBIOLOGY - GENERAL ORDER TATYANA Final Result Performing Organization Address City/State/[facility] Co de Phone Number [facility] Department [place] [address] * CT Abdomen Pelvis WO Contrast (09/06/2020 12:00 AM CDT) Anatomical Region Laterality Modality Body N/A Computed Tomogra phy 09/06/2020 2:12 PM CDT Narrative 09/06/2020 2:23 PM CDT Patient Name: OZZY CH Ordering Dr: Francesca Zazueta MD D.O.B: 1960 Exam Date: 09/06/20 0000 Age: 60 Sex: Male MR#: [id number] Loc: S220-02 RADIOLOGY REPORT Order #[id number] CT Scan CT Abd/Pelvis WO IV Contrast [...] by Danette Maya TS T: Report ID: [id number] Reading Location: [place] [address] REPORT ELECTRONICALLY SIGNED IN OTHER VENDOR SYSTEM Resulting Agency Comment I Procedure Note Danette Maya MD - 09/06/2020 Patient Name: OZZY CH Dr: Francesca Zazueta MD D.O.B: 1960 Exam Date: 09/06/20 0000 Age: 60 Sex: Male MR#: [id number] Loc: S220-02 RADIOLOGY REPORT Order #[id number] CT Scan CT Abd/Pelvis WO IV Contrast [...] signed by Danette MILLER T: Report ID: [id number] Reading Location: [id number] REPORT ELECTRONICALLY SIGNED IN OTHER VENDOR SYSTEM Francesca Zazueta MD G CT PROCEDUR ES Final Result from Last 3 Months or Most Recently Relevant to Health Maintenance Insurance [facility] [place] [address] Advance Directives For more information, please contact: [phone] * Full Code (Latest Code Status on [...] 5:04 AM 08/22/2019 9:25 PM Care Teams Continuous Wave Operator Relationship Specialty Start Date End Date Tomeka Knight PA PCP - General Physician Retail Merchandiser 06/28/19
--- OUTSIDE RECORDS SUMMARY | 2025-02-21 18:45 | XMS_ITS | Clinical Summary ---
Author Organization [facility] Address [address] [place] [id number] Care Team Providers Care Sr Vice President Name Role Phone Emanuel Nguyen MD Primary Care Provider [phone] Michael Flanagan MD Unavailable Allergies No known active allergies Medications aspirin [...] 03/09/2018 Assessment & Plan (03/10/2018 7:33 AM WINDERMAN): Chronic, stable. - Continue home Lisinopril-HCTZ 20-12.5 PO daily HLD (hyperlipidemia) 03/09/2018 Assessment & Plan (03/10/2018 7:32 AM WINDERMAN): Chronic, lipids on admission. - Continue home statin - Obtain hbA1c Respiratory failure 03/09/2018 Assessment & Plan (03/10/2018 7:30 AM WINDERMAN): Acute, stable and resolved this morning. Admitted [...] 03/09/2018 Assessment & Plan (03/10/2018 7:31 AM WINDERMAN): Non-purulent, acute. - 1 g IV Rocephin (05/25) provides adequate coverage, transition to Omnicef on DC - Follow-up blood cultures - Follow-up CBC D-dimer, elevated 03/09/2018 Assessment & Plan (03/09/2018 11:00 PM WINDERMAN): Patient presented with bilateral lower extremity swelling [...] 03/09/2018 Assessment & Plan (03/09/2018 10:35 PM WINDERMAN): History of alcohol use, self reported 4-5 [...] on file Legal Sex Male 6:13 PM WINDERMAN Gender Identity Not on file Sexual Orientation [...] Vaccines (1 of 2) 2008 COVID-19 Vaccine ( - 2024-2 6 season) 2024 Influenza Adult (#1) 2025 RSV Immunization or 60+ Years (1 - 1-dose 75+ series) 2033 Hepatitis A Vaccines Aged Out No long er eligible based on patient's age to complete this topic Meningococcal B Vaccine Aged Out No l onger eligible based on patient's age to complete this topic Meningococcal Vaccine Aged Out No augie lisa eligible based on patient's age to complete this topic RSV Immunizations Under 20 Months Aged Out No longer eligible based on patient's age to complete this topic Insurance [employer] Advance Directives Documents on File Type Date Recorded Patient Commissioning Specialist Expl anation Advance Directives and Living Will 03/11/2018 11:18 AM 03-10-18 POA FOR HEALTHCARE * DNR (Latest Code Status on File) Date Activated Date Inactivated Comments 08/18/2019 1:51 AM 08/18/2019 12:22 PM * Full Code Date Activated Date Inactivated Comments 03/09/2018 10:17 PM 03/10/2018 5:23 PM Care Teams Sr Vice President Relationship Specialty Start Date End Date Emanuel Nguyen MD [address] [place] [address] PCP - General FAMILY PRACTICE 04/03/18 Michael Flanagan MD [address] [facility] [place] [address] [place] [address] [place] Management Specialist CARDIOVASCULAR DISEASE 04/20/18
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
--- OUTSIDE RECORDS SUMMARY | 2025-02-21 18:46 | XMS_ITS | Data Portability ---
Author Organization [facility] Address [address] 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 Lab HbA1c (hemoglobin A1c), blood 2024 025 EMILY [facility], [address], [address], [place], [address], 5 06:16:24 CBC 2024 025 EMILY [facility], [address] [facility], [address], [place], [address], 5 06:16:22 basic metabolic 1998 panel, serum or plasma 2024 025 EMILY [facility], [address], [address], [place], [address], 5 06:16:21 drug screen, urine 2024 025 [email or web address] [facility], [address], [address], [place], [address], 5 09:54:27 pro BNP (pro B-type natriuretic peptide), serum or plasma 2024 025 [facility]ILY [facility], [address], [address], [place], [address], 5 06:25:12 urinalysis macro (dipstick) panel, urine 2024 025 [facility], [address] [facility] [address], [address], [place], [address], 5 08:24:22 CMP, serum or plasma 2024 025 EMILY [facility], [address] [facility] [address], [address], [place], [address], 5 08:24:21 CBC w/ auto diff 2024 025 EMILY JARAMILLO, [address], [address], [place], [address], 5 08:24:24 lipid panel, serum 2024 025 EMILY [facility], [address], [address], [place], [address], 5 08:24:19 vitamin D, 25-hydroxy, total, serum 2024 025 EMILY JARAMILLOISID[facility], [address], [address], [place], [address], 5 06:25:16 TSH, ultra-sensi tive, serum 2024 025 EMILY B[facility], [address], [address], [place], [address], 5 06:25:14 drug screen, urine 2024 025 EMILY B[facility], [address], [address], [place], [address], 5 06:25:13 PSA, total, serum or plasma 2024 025 EMILY B[facility], [address], [address], [place], [address], 5 06:25:15 albumin/cre atinine, mass ratio, urine 2022 023 EMILY BULL, [address], [address], [place], [address], 3 21:08:04 HbA1c (hemoglobin A1c), blood 2022 023 EMILY BULL, [address], [address], [place], [address], 3 21:08:05 CMP, serum or plasma 2022 023 EMILY BULL, [address], [address], [place], [address], 3 21:08:05 CBC w/ auto diff 2022 023 EMLIY BULL, [address], [address], [place], [address], 3 21:08:06 HbA1c (hemoglobin A1c), blood 2022 023 EMILY In-Office Order, Internal Use Only DO Not Attach Compendium DO Not Attach Compendium, Do Not Delete/merge, [id number] 3 16:09:17 CMP, serum or plasma 2022 023 EMILY [facility], [address], [address], [place], [address], 3 22:07:38 CBC w/ auto diff 2022 023 EMILY [facility], [address], [address], [place], [address], 3 22:07:39 albumin/cre atinine, mass ratio, urine 2022 023 EMILY [facility], [address], [address], [place], [address], 3 11:12:47 hepatitis C virus RNA, quant, PCR, serum or plasma 2021 022 EMILY [facility], [address], [address], [place], [address], 2 22:06:53 CBC w/ auto diff 2021 022 EMILY [facility], [address], [address], [place], [address], 2 22:07:04 CMP, serum or plasma 2021 022 EMILY [facility], [address], [address], [place], [address], 2 22:07:03 HIV 1 + 2, meaningful use set 2021 022 [facility], [address], [address], [place], [address], 2 22:06:[address] referral 2024 025 EMILY Dimas MD, [address], [place], [address], 5 04:10:41 doorshaker referral 2024 025 charo [email or web address] Nael Iraheta DPM, [address], [address], [place], [address], 5 14:04:[address] referral 2024 025 EMILY Cummings MD, [address], [place], [address], 5 16:39:51 cardiologis t referral 2024 025 gerson Danielle DO, [address], [address], [place], [address], 5 08:55:08 physical therapist referral - [place] Location 2024 025 [facility], [address], [place], [address], 5 15:57:38 wound care referral 2022 023 [email or web address], [address], [address], [place], [address], 3 11:00:39 palliative medicine referral - palliative 2022 023 [email or web address], [address], [address], [place], [address], 3 15:03:06 cardiologis t referral 2022 023 [facility], [address], [address], [place], [address], 3 14:29:33 gastroenter ologist referral [address], [address], [place], [address], 3 17:16:04 orthopedic surgeon referral 2021 022 [facility] ([facility]), [address] [facility], [address] [place] [address], [address], 2 12:39:51 physical therapist referral 2021 022 [facility] (Outpatient Physical Therapy), [address], [place], [address], 3 15:19:32 Procedures None recorded. Surgeries None recorded. Imaging XR, cervical spine - Chronic neck pain 2024 025 [facility], [address] [place] [address] [address] [facility], [place], [address], 5 14:38:57 LDCT, chest, for lung cancer screening 2024 025 [facility], [address] [place], [place] [address] [address] [place] [address], [address], 5 14:06:31 LDCT, chest, for lung cancer screening [address] (Imaging), [address] [place], [place] [address] [address] [place] [address], [address], 3 13:28:18 US, duplex, venous, lower extremity [address] (Imaging), [address], [place], [address], 09:46:48 LDCT, chest, for lung cancer screening [address] (Imaging), [address], [place], [address], 09:46:52 Medication Orders ergocalcife rol (vitamin D2) 1,250 mcg (50,000 unit) capsule 2024 [facility][id number], [address] [place], [place], [id number], 5 10:05:29 Trelegy Ellipta 100 mcg-62.5 mcg-25 mcg powder for inhalation 2024 [facility]16829, [address], [place], [id number], 5 10:17:10 fluconazole 150 mg tablet 2024 [facility] #73516, [address], [place], [id number], 5 09:49:57 albuterol sulfate HFA 90 mcg/actuati on aerosol inhaler 2024 [facility] #34510, [address] [facility], [place], [place], [id number], 5 14:54:01 aspirin 81 mg tablet,luci yed release 2024 025 [facility] #17879, [address], [place], [id number], 5 14:54:07 metoprolol tartrate 37.5 mg tablet 2024 025 [facility] #38949, [address], [place], [id number], 5 14:54:04 furosemide 40 mg tablet 2024 025 [facility] #25758, [address], [place], [id number], 5 14:53:59 ammonium lactate 12 % lotion 2024 025 [facility] #57327, [address], [place], [id number], 5 14:57:55 atorvastati n 20 mg tablet 2024 025 [facility] #17845, [address], [place], [id number], 5 19:34:52 metoprolol succinate ER 25 mg tablet,exte nded release 24 hr 2022 023 [facility] #46236, [address], [place], [place], [id number], 5 14:05:12 furosemide 20 mg tablet 2022 023 [facility] #98206, [address], [place], [place], [id number], 5 14:04:57 clotrimazol e 1 % topical cream 2022 023 [facility], [address], [place], [id number], 5 14:27:37 furosemide 40 mg tablet 2021 022 [facility][id number], [address] [facility], [place], [place], [id number], 17:15:24 Patient TargetsNo targets recorded. Patient Instructions Encounter Date Encounter Id Patient Instructions Last Modified By Organization Details Last Modified Time 03/15/2022 [id number] complete PFT w/ post bronchodilator spirometry* Not available 03/15/2022 16:00:52 A healthy lifestyle: care instructions Not available 03/22/2022 20:41:59 knee pain or injury: care instructions Not available 03/22/2022 20:39:23 05/20/2022 [id number] complete PFT w/ post bronchodilator spirometry* EMILY Not available 06/10/2022 06:06:21 A healthy lifestyle: care instructions Not available 05/22/2022 08:58:45 knee pain or injury: care instructions Not available 05/22/2022 08:58:45 09/21/2022 [id number] A healthy lifestyle: care instructions Not available 09/21/2022 14:52:26 06/11/2024 [id number] athlete's foot: care instructions oajao Not available 06/11/2024 14:56:55 high blood pressure: care instructions oajao Not available 06/11/2024 14:53:53 learning about high blood pressure oajao Not available 06/11/2024 14:53:54 heart failure: care instructions oajao Not available 06/11/2024 14:53:54 learning about heart failure oajao Not available 06/11/2024 14:53:53 dry skin: care instructions oajao Not available 06/11/2024 14:56:55 Labs Cardiology D/C summary from [facility] Colonoscopy report from [facility] Podiatry Xrays Stop smoking Do not smoke while using Nicotine replacement PT for PMD Follow up in 4 weeks (30 minutes) oajao Not available 06/11/2024 19:41:47 Very detailed initial visit oajao Not available 06/11/2024 19:42:04 10/26/2024 [id number] prediabetes: car e instructions oajao Not available 10/26/2024 10:04:03 sleep apnea: car e instructions oajao Not available 10/26/2024 10:01:52 A healthy lifestyle: care instructions oajao Not available 10/26/2024 09:38:37 body mass index: care instructions oajao Not available 10/26/2024 09:38:37 learning about healthy weight oajao Not available 10/26/2024 09:38:37 Refill of the Psychiatric medications by the BH team at [facility] as referred Sleep medicine/Pulmonolo gy (Dr Lee) Follow up in 6 weeks oajao Not available 10/26/2024 10:11:27 Detailed visit oajao Not available 0 10/26/2024 11:00:18 Reason for Referral [employer] Referral for Chronic hepatitis C Referring Physician: [facility], Encounter Date: 03/15/2022 Orthopedic Surgeon Referral for Pain of right knee joint Referring Physician: General Christiana Sparks, Encounter Date: 03/15/2022 Physical Therapist Referral for Pain of right knee joint Referring Physician: General Christiana Sparks, Encounter Date: 03/15/2022 Referring Physician: Tomeka huntley It Network Administrator, Encounter Date: 05/20/2022 Palliative Medicine Referral for Congestive heart failure palliative Referring Physician: General Christiana Sparks, Encounter Date: 05/20/2022 Flight Communications Specialist Referral for Co ngestive heart failure Referring Physician: [facility], Encounter Date: 05/20/2022 Physical Therapist Referral for Impaired mobility [place] [facility] Referring Physician: Dominick Kennedy, Internal Medicine, Encounter Date: 06/11/2024 [employer] Specialist Referral for Co ngestive heart failure CHF Referring Physician: Dominick Kennedy Internal Medicine, Encounter Date: 06/11/2024 Customer Trainer Referral for C hronic obstructive pulmonary disease COPD Referring Physician: Dominick Kennedy, Internal Medicine, Encounter Date: 06/11/2024 Core Dropper Referral for Kaylan a pedis Onychomycosis, Tinea pedis Referring Physician: Dominick Kennedy, Internal Medicine, Encounter Date: 06/11/2024 Customer Trainer Referral for C hronic obstructive pulmonary disease [...] RANGE : 275.0 -301. 0 Not Available [facility] [address] [place] [address], [address], 03/16/2022 22:07:03 03/15/20 22 03/16/2022 COMP. METAB OLIC PANEL (14) BUN 15 mg/dL 8-26 Not Available [facility] [address] [place] [address], [address], 03/16/2022 22:07:03 03/15/20 22 03/16/2022 COMP. METAB OLIC PANEL (14) creatinine 0.81 mg/dL 0.50-1 .40 Not Available [facility] [address] [place], [address], 03/16/2022 22:07:03 03/15/20 22 03/16/2022 COMP. METAB OLIC PANEL (14) eGFR 99 mL/mi n/1.7 3 >=60 Not Available [facility] [address] [place], [address], 03/16/2022 22:07:03 03/15/20 22 03/16/2022 COMP. METAB OLIC PANEL (14) BUN/creatini ne ratio 18.3 Not Available [facility] [address] [place], [address], 03/16/2022 22:07:03 03/15/20 22 03/16/2022 COMP. METAB OLIC PANEL (14) sodium 134.0 mmol/ L 136.0- 144.0 below low normal Not Available [facility] [address] [place], [address], 03/16/2022 22:07:03 03/15/20 22 03/16/2022 COMP. METAB OLIC PANEL (14) potassium 4.6 mmol/ L 3.5-5. 3 Not Available [facility] [address] [place], [address], 03/16/2022 22:07:03 03/15/20 22 03/16/2022 COMP. METAB OLIC PANEL (14) chloride 94 mmol/ l 101-11 1 below low normal Not Available [facility] [address] [place], [address], 03/16/2022 22:07:03 03/15/20 22 03/16/2022 COMP. METAB OLIC PANEL (14) carbon dioxide, total 25.7 mmol/ L 21.0-3 2.0 Not Available [facility] [address] [place], [address], 03/16/2022 22:07:03 03/15/20 22 03/16/2022 COMP. METAB OLIC PANEL (14) calcium 10.0 mg/dL 8.2-10 .0 Not Available [facility] [address] [place], [address], 03/16/2022 22:07:03 03/15/20 22 03/16/2022 COMP. METAB OLIC PANEL (14) protein, total 9.6 g/dL 6.7-8. 2 above high normal Not Available [facility] [address] [place], [address], 03/16/2022 22:07:03 03/15/20 22 03/16/2022 COMP. METAB OLIC PANEL (14) albumin 3.7 g/dL 3.5-5. 5 Not Available [facility] [address] [place], [address], 03/16/2022 22:07:03 03/15/20 22 03/16/2022 COMP. METAB OLIC PANEL (14) globulin, total 5.9 g/dL 1.5-4. 5 above high normal Not Available [facility] [address] [place], [address], 03/16/2022 22:07:03 03/15/20 22 03/16/2022 COMP. METAB OLIC PANEL (14) A/G ratio 0.6 Not Available [facility] Department [address] [place], [address], 03/16/2022 22:07:03 03/15/20 22 03/16/2022 COMP. METAB OLIC PANEL (14) bilirubin, total 0.6 mg/dL 0.0-1. 2 Not Available [facility] [address] [place], [address], 03/16/2022 22:07:03 03/15/20 22 03/16/2022 COMP. METAB OLIC PANEL (14) alkaline phosphatase 458.7 IU/L 42.0-1 21.0 above high normal Not Available [facility] [address] [place], [address], 03/16/2022 22:07:03 03/15/20 22 03/16/2022 COMP. METAB OLIC PANEL (14) AST (SGOT) 34.9 U/L 10.0-4 2.0 Not Available [facility] [address] [place], [address], 03/16/2022 22:07:03 03/15/20 22 03/16/2022 COMP. METAB OLIC PANEL (14) ALT (SGPT) 31.6 U/L 10.0-6 0.0 Not Available [facility] [address] [place], [address], 03/16/2022 22:07:03 03/15/20 22 03/16/2022 CBC WITH DIFFE RENTI AL/PL ATELE T WBC 10.2 K/uL 3.4-10 .8 Not Available [facility] [address] [place], [address], 03/16/2022 22:07:03 03/15/20 22 03/16/2022 CBC WITH DIFFE RENTI AL/PL ATELE T RBC 4.8 M/uL 4.5-6. 3 Not Available [facility] [address] [place], [address], 03/16/2022 22:07:03 03/15/20 22 03/16/2022 CBC WITH DIFFE RENTI AL/PL ATELE T hemoglobin 14.1 g/dL 13.5-1 7.5 Not Available [facility] [address] [place], [address], 03/16/2022 22:07:03 03/15/20 22 03/16/2022 CBC WITH DIFFE RENTI AL/PL ATELE T hematocrit 44.4 % 40.0-5 2.0 Not Available [facility] [address] [place], [address], 03/16/2022 22:07:03 03/15/20 22 03/16/2022 CBC WITH DIFFE RENTI AL/PL ATELE T MCV 93 fL 80-95 Not Available [facility] [address] [place], [address], 03/16/2022 22:07:03 03/15/20 22 03/16/2022 CBC WITH DIFFE RENTI AL/PL ATELE T MCH 30 pg 27-32 Not Available [facility] [address] [place], [address], 03/16/2022 22:07:03 03/15/20 22 03/16/2022 CBC WITH DIFFE RENTI AL/PL ATELE T MCHC 32 g/dL 32-36 Not Available [facility] [address] [place], [address], 03/16/2022 22:07:03 03/15/20 22 03/16/2022 CBC WITH DIFFE RENTI AL/PL ATELE T RDW 12.8 % 11.5-1 4.5 Not Available [facility] [address] [place], [address], 03/16/2022 22:07:03 03/15/20 22 03/16/2022 CBC WITH DIFFE RENTI AL/PL ATELE T platelets 317 K/uL 155-37 9 MPV 10.6 FL 8.9-1 2.7 N Not Available [facility] [address] [place], [address], 03/16/2022 22:07:03 03/15/20 22 03/16/2022 CBC WITH DIFFE RENTI AL/PL ATELE T neutrophils 74.2 % 40.0-7 4.0 above high normal Not Available [facility] [address] [place], [address], 03/16/2022 22:07:03 03/15/20 22 03/16/2022 CBC WITH DIFFE RENTI AL/PL ATELE T lymphs 12.8 % 14.0-4 6.0 below low normal Not Available [facility] [address] [place], [address], 03/16/2022 22:07:03 03/15/20 22 03/16/2022 CBC WITH DIFFE RENTI AL/PL ATELE T monocytes 8.2 % 4.0-12 .0 Not Available [facility] [address] [place], [address], 03/16/2022 22:07:03 03/15/20 22 03/16/2022 CBC WITH DIFFE RENTI AL/PL ATELE T eos 3 % 0-5 Not Available [facility] [address] [place], [address], 03/16/2022 22:07:03 03/15/20 22 03/16/2022 CBC WITH DIFFE RENTI AL/PL ATELE T basos 0.7 % 0.0-1. 0 Not Available [facility] [address] [place], [address], 03/16/2022 22:07:03 03/15/20 22 03/16/2022 CBC WITH DIFFE RENTI AL/PL ATELE T neutrophils (absolute) 7.6 K/uL 1.4-7. 0 above high normal Not Available [facility] [address] [place], [address], 03/16/2022 22:07:03 03/15/20 22 03/16/2022 CBC WITH DIFFE RENTI AL/PL ATELE T lymphs (absolute) 1.3 K/uL 0.7-3. 1 Not Available [facility] [address] [place], [address], 03/16/2022 22:07:03 03/15/20 22 03/16/2022 CBC WITH DIFFE RENTI AL/PL ATELE T monocytes(ab solute) 0.8 K/uL 0.1-0. 9 Not Available [facility] [address] [place], [address], 03/16/2022 22:07:03 03/15/20 22 03/16/2022 CBC WITH DIFFE RENTI AL/PL ATELE T eos (absolute) 0.3 K/uL 0.0-0. 4 Not Available [facility] [address] [place], [address], 03/16/2022 22:07:03 03/15/20 22 03/16/2022 CBC WITH DIFFE RENTI AL/PL ATELE T baso (absolute) 0.1 K/uL 0.0-0. 3 Not Available [facility] [address] [place], [address], 03/16/2022 22:07:03 03/15/20 22 03/16/2022 CBC WITH DIFFE RENTI AL/PL ATELE T immature granulocytes 1.5 % Not Available [facility] Department [address] [place], [address], 03/16/2022 22:07:03 03/15/20 22 03/16/2022 CBC WITH DIFFE RENTI AL/PL ATELE T immature grans (abs) 0.2 K/uL Not Available [facility] Department [address] [place], [address], 03/16/2022 22:07:03 03/15/20 22 03/16/2022 CBC WITH DIFFE RENTI AL/PL ATELE T NRBC 0 % Not Available [facility] [address] [place], [address], 03/16/2022 22:07:03 03/15/20 22 03/16/2022 HCV RNA BY PCR, QN RFX STEPHANIE test information: Commen t The quant itati ve range of this assay is 15 IU/mL to 100 angelo on IU/mL . Not Available [facility] ([facility]) [address], [place], [address], 03/20/2022 22:06:53 03/15/20 22 03/19/2022 HCV RNA BY PCR, QN RFX STEPHANIE hepatitis C quantitation [id number] 0 IU/mL Not Available [facility] ([facility]) [address], [place], [address], 03/20/2022 22:06:53 03/15/20 22 03/19/2022 HCV RNA BY PCR, QN RFX STEPHANIE HCV log10 6.954 log10 _IU/m L Not Available [facility] ([facility]) [address], [place], [address], 03/20/2022 22:06:53 03/15/20 22 03/19/2022 HCV RNA BY PCR, QN RFX STEPHANIE HCV genotype Commen t To be perfo rmed on this speci men. Not Available [facility] ([facility]) [address], [place], [address], 03/20/2022 22:06:53 03/15/20 22 03/17/2022 HIV AB/P2 4 AG WITH REFLE X HIV Ab/P24 Ag screen Non Reacti ve nonrea ctive HIV Negat juan HIV-1 /HIV- 2 antib odies and HIV-1 p24 antig en were NOT detec cole. There is no labor atory evide nce of HIV infec tion. Not Available [facility] ([facility]) [address], [place], [address], 03/20/2022 22:06:54 03/15/20 22 03/19/2022 HEPAT ITIS C GENOT YPE please note: Commen t This test was devel oped and its perfo rmanc e inrgid cteri stics deter mined by [facility]. [...] or for resea rch. Not Available [facility] ([facility]) [address], [place], [address], 03/20/2022 22:06:54 03/15/20 22 03/20/2022 HEPAT ITIS C GENOT YPE hepatitis C genotype 1b Not Available [facility] ([facility]) [address], [place], [address], 03/20/2022 22:06:54 05/20/19 23 05/20/2022 COMP. METAB OLIC PANEL (14) glucose 104 mg/dL 65-99 above high normal ANION GP 22.0 mmol/ L N OSMOL 277.0 mOsM/ L N REFER ENCE RANGE : 275.0 -301. 0 Not Available [facility] [address] [place], [address], 05/20/2022 22:07:38 05/20/19 23 05/20/2022 COMP. METAB OLIC PANEL (14) BUN 11 mg/dL 8-26 Not Available [facility] [address] [place], [address], 05/20/2022 22:07:38 05/20/19 23 05/20/2022 COMP. METAB OLIC PANEL (14) creatinine 0.71 mg/dL 0.50-1 .40 Not Available [facility] [address] [place], [address], 05/20/2022 22:07:38 05/20/19 23 05/20/2022 COMP. METAB OLIC PANEL (14) eGFR 102 mL/mi n/1.7 3 >=60 Not Available [facility] [address] [place], [address], 05/20/2022 22:07:38 05/20/19 23 05/20/2022 COMP. METAB OLIC PANEL (14) BUN/creatini ne ratio 16.1 Not Available [facility] [address] [place], [address], 05/20/2022 22:07:38 05/20/19 23 05/20/2022 COMP. METAB OLIC PANEL (14) sodium 138.6 mmol/ L 136.0- 144.0 Not Available [facility] [address] [place], [address], 05/20/2022 22:07:38 05/20/19 23 05/20/2022 COMP. METAB OLIC PANEL (14) potassium 4.0 mmol/ L 3.5-5. 3 Not Available [facility] [address] [place], [address], 05/20/2022 22:07:38 05/20/19 23 05/20/2022 COMP. METAB OLIC PANEL (14) chloride 100 mmol/ l 101-11 1 below low normal Not Available [facility] [address] [place], [address], 05/20/2022 22:07:38 05/20/19 23 05/20/2022 COMP. METAB OLIC PANEL (14) carbon dioxide, total 21.4 mmol/ L 21.0-3 2.0 Not Available [facility] [address] [place], [address], 05/20/2022 22:07:38 05/20/19 23 05/20/2022 COMP. METAB OLIC PANEL (14) calcium 9.6 mg/dL 8.2-10 .0 Not Available [facility] [address] [place], [address], 05/20/2022 22:07:38 05/20/19 23 05/20/2022 COMP. METAB OLIC PANEL (14) protein, total 8.7 g/dL 6.7-8. 2 above high normal Not Available [facility] [address] [place], [address], 05/20/2022 22:07:38 05/20/19 23 05/20/2022 COMP. METAB OLIC PANEL (14) albumin 3.7 g/dL 3.5-5. 5 Not Available [facility] [address] [place], [address], 05/20/2022 22:07:38 05/20/19 23 05/20/2022 COMP. METAB OLIC PANEL (14) globulin, total 5.0 g/dL 1.5-4. 5 above high normal Not Available [facility] [address] [place], [address], 05/20/2022 22:07:38 05/20/19 23 05/20/2022 COMP. METAB OLIC PANEL (14) A/G ratio 0.7 Not Available [facility] Department [address] [place], [address], 05/20/2022 22:07:38 05/20/19 23 05/20/2022 COMP. METAB OLIC PANEL (14) bilirubin, total 0.4 mg/dL 0.0-1. 2 Not Available [facility] [address] [place], [address], 05/20/2022 22:07:38 05/20/19 23 05/20/2022 COMP. METAB OLIC PANEL (14) alkaline phosphatase 309.4 IU/L 42.0-1 21.0 above high normal Not Available [facility] [address] [place], [address], 05/20/2022 22:07:38 05/20/19 23 05/20/2022 COMP. METAB OLIC PANEL (14) AST (SGOT) 41.8 U/L 10.0-4 2.0 Not Available [facility] [address] [place], [address], 05/20/2022 22:07:38 05/20/19 23 05/20/2022 COMP. METAB OLIC PANEL (14) ALT (SGPT) 41.3 U/L 10.0-6 0.0 Not Available [facility] [address] [place], [address], 05/20/2022 22:07:38 05/20/19 23 05/20/2022 CBC WITH DIFFE RENTI AL/PL ATELE T WBC 7.5 K/uL 3.4-10 .8 Not Available [facility] [address] [place], [address], 05/20/2022 22:07:39 05/20/19 23 05/20/2022 CBC WITH DIFFE RENTI AL/PL ATELE T RBC 4.7 M/uL 4.5-6. 3 Not Available [facility] [address] [place], [address], 05/20/2022 22:07:39 05/20/19 23 05/20/2022 CBC WITH DIFFE RENTI AL/PL ATELE T hemoglobin 13.6 g/dL 13.5-1 7.5 Not Available [facility] [address] [facility], [place], [address], 05/20/2022 22:07:39 05/20/19 23 05/20/2022 CBC WITH DIFFE RENTI AL/PL ATELE T hematocrit 41.9 % 40.0-5 2.0 Not Available [facility] [address] [place], [address], 05/20/2022 22:07:39 05/20/19 23 05/20/2022 CBC WITH DIFFE RENTI AL/PL ATELE T MCV 90 fL 80-95 Not Available [facility] [address] [place], [address], 05/20/2022 22:07:39 05/20/19 23 05/20/2022 CBC WITH DIFFE RENTI AL/PL ATELE T MCH 29 pg 27-32 Not Available [facility] [address] [place], [address], 05/20/2022 22:07:39 05/20/19 23 05/20/2022 CBC WITH DIFFE RENTI AL/PL ATELE T MCHC 33 g/dL 32-36 Not Available [facility] [address] [place], [address], 05/20/2022 22:07:39 05/20/19 23 05/20/2022 CBC WITH DIFFE RENTI AL/PL ATELE T RDW 14.0 % 11.5-1 4.5 Not Available [facility] [address] [place], [address], 05/20/2022 22:07:39 05/20/19 23 05/20/2022 CBC WITH DIFFE RENTI AL/PL ATELE T platelets 318 K/uL 155-37 9 MPV 11.0 FL 8.9-1 2.7 N Not Available [facility] [address] [place], [address], 05/20/2022 22:07:39 05/20/19 23 05/20/2022 CBC WITH DIFFE RENTI AL/PL ATELE T neutrophils 63.6 % 40.0-7 4.0 Not Available [facility] [address] [place], [address], 05/20/2022 22:07:39 05/20/19 23 05/20/2022 CBC WITH DIFFE RENTI AL/PL ATELE T lymphs 19.0 % 14.0-4 6.0 Not Available [facility] [address] [place], [address], 05/20/2022 22:07:39 05/20/19 23 05/20/2022 CBC WITH DIFFE RENTI AL/PL ATELE T monocytes 7.6 % 4.0-12 .0 Not Available [facility] [address] [place], [address], 05/20/2022 22:07:39 05/20/19 23 05/20/2022 CBC WITH DIFFE RENTI AL/PL ATELE T eos 7 % 0-5 above high normal Not Available [facility] [address] [place], [address], 05/20/2022 22:07:39 05/20/19 23 05/20/2022 CBC WITH DIFFE RENTI AL/PL ATELE T basos 0.8 % 0.0-1. 0 Not Available [facility] [address] [place], [address], 05/20/2022 22:07:39 05/20/19 23 05/20/2022 CBC WITH DIFFE RENTI AL/PL ATELE T neutrophils (absolute) 4.8 K/uL 1.4-7. 0 Not Available [facility] [address] [place], [address], 05/20/2022 22:07:39 05/20/19 23 05/20/2022 CBC WITH DIFFE RENTI AL/PL ATELE T lymphs (absolute) 1.4 K/uL 0.7-3. 1 Not Available [facility] [address] [place], [address], 05/20/2022 22:07:39 05/20/19 23 05/20/2022 CBC WITH DIFFE RENTI AL/PL ATELE T monocytes(ab solute) 0.6 K/uL 0.1-0. 9 Not Available [facility] [address] [place], [address], 05/20/2022 22:07:39 05/20/19 23 05/20/2022 CBC WITH DIFFE RENTI AL/PL ATELE T eos (absolute) 0.5 K/uL 0.0-0. 4 above high normal Not Available [facility] [address] [place], [address], 05/20/2022 22:07:39 05/20/19 23 05/20/2022 CBC WITH DIFFE RENTI AL/PL ATELE T baso (absolute) 0.1 K/uL 0.0-0. 3 Not Available [facility] [address] [place], [address], 05/20/2022 22:07:39 05/20/19 23 05/20/2022 CBC WITH DIFFE RENTI AL/PL ATELE T immature granulocytes 1.9 % Not Available [facility] [address] [place], [address], 05/20/2022 22:07:39 05/20/19 23 05/20/2022 CBC WITH DIFFE RENTI AL/PL ATELE T immature grans (abs) 0.1 K/uL Not Available [facility] [address] [place], [address], 05/20/2022 22:07:39 05/20/19 23 05/20/2022 CBC WITH DIFFE RENTI AL/PL ATELE T NRBC 0 % Not Available [facility] [address] [place], [address], 05/20/2022 22:07:39 05/20/19 23 05/21/2022 ALBUM IN/CR EATIN INE RATIO ,URIN E creatinine, urine 179.4 mg/dL notest ab. Not Available [facility] ([facility]) [address] [facility], [place], [address], 05/21/2022 11:12:47 05/20/19 23 05/21/2022 ALBUM IN/CR EATIN INE RATIO ,URIN E albumin, urine 11.7 ug/mL notest ab. Not Available [facility] ([facility]) [address] [place], [address], 05/21/2022 11:12:47 05/20/19 23 05/21/2022 ALBUM IN/CR EATIN INE RATIO ,URIN E alb/creat ratio 7 mg/g_ creat 0-29 Brenda l: 0 - 29 Moder ately incre ased: 30 - 300 Sever kamran incre ased: >300 Not Available [facility] ([facility]) [address] [place], [address], 05/21/2022 11:12:47 05/20/19 23 05/20/2022 HbA1c (hemo globi n A1c), blood HbA1c 5.7% Not Available In-Office Order Internal Use Only DO Not Attach Compendium DO Not Attach Compendium, Do Not Delete/merge, [id number] 05/20/2022 15:45:07 09/22/19 23 09/22/2022 ALBUM IN/CR EATIN INE RATIO ,URIN E creatinine, urine 194.2 mg/dL notest ab. Not Available [facility] ([facility]) [address] [place], [address], 09/22/2022 21:08:04 09/22/19 23 09/22/2022 ALBUM IN/CR EATIN INE RATIO ,URIN E albumin, urine 17.1 ug/mL notest ab. Not Available [facility] ([facility]) [address] [place], [address], 09/22/2022 21:08:04 09/22/19 23 09/22/2022 ALBUM IN/CR EATIN INE RATIO ,URIN E alb/creat ratio 9 mg/g_ creat 0-29 Brenda l: 0 - 29 Moder ately incre ased: 30 - 300 Sever kamran incre ased: >300 Not Available [facility] ([facility]) [address] [place], [address], 09/22/2022 21:08:04 09/22/19 23 09/22/2022 COMP. METAB OLIC PANEL (14) glucose 108 mg/dL 70-99 above high normal Not Available [facility] ([facility]) [address] [place], [address], 09/22/2022 21:08:05 09/22/19 23 09/22/2022 COMP. METAB OLIC PANEL (14) BUN 11 mg/dL 8-27 Not Available [facility] ([facility]) [address] [place], [address], 09/22/2022 21:08:05 09/22/19 23 09/22/2022 COMP. METAB OLIC PANEL (14) creatinine 0.70 mg/dL 0.76-1 .27 below low normal Not Available [facility] ([facility]) [address] [facility], [place], [address], 09/22/2022 21:08:05 09/22/19 23 09/22/2022 COMP. METAB OLIC PANEL (14) eGFR 103 mL/mi n/1.7 3 >59 Not Available [facility] ([facility]) [address] [facility], [place], [address], 09/22/2022 21:08:05 09/22/19 23 09/22/2022 COMP. METAB OLIC PANEL (14) BUN/creatini ne ratio 16 10-24 Not Available [facility] ([facility]) [address] [facility], [place], [address], 09/22/2022 21:08:05 09/22/19 23 09/22/2022 COMP. METAB OLIC PANEL (14) sodium 138 mmol/ L 134-14 4 Not Available [facility] ([facility]) [address] [place], [address], 09/22/2022 21:08:05 09/22/19 23 09/22/2022 COMP. METAB OLIC PANEL (14) potassium 4.4 mmol/ L 3.5-5. 2 Not Available [facility] ([facility]) [address] [place], [address], 09/22/2022 21:08:05 09/22/19 23 09/22/2022 COMP. METAB OLIC PANEL (14) chloride 95 mmol/ L 96-106 below low normal Not Available [facility] ([facility]) [address] [place], [address], 09/22/2022 21:08:05 09/22/19 23 09/22/2022 COMP. METAB OLIC PANEL (14) carbon dioxide, total 28 mmol/ L 20-29 Not Available [facility] ([facility]) [address] [place] [place], [address], 09/22/2022 21:08:05 09/22/19 23 09/22/2022 COMP. METAB OLIC PANEL (14) calcium 9.1 mg/dL 8.6-10 .2 Not Available [facility] ([facility]) [address] [place] [place], [address], 09/22/2022 21:08:05 09/22/19 23 09/22/2022 COMP. METAB OLIC PANEL (14) protein, total 8.5 g/dL 6.0-8. 5 Not Available [facility] ([facility]) [address] [place] [place], [address], 09/22/2022 21:08:05 09/22/19 23 09/22/2022 COMP. METAB OLIC PANEL (14) albumin 3.6 g/dL 3.8-4. 8 below low normal Not Available [facility] ([facility]) [address] [place] [place], [address], 09/22/2022 21:08:05 09/22/19 23 09/22/2022 COMP. METAB OLIC PANEL (14) globulin, total 4.9 g/dL 1.5-4. 5 above high normal Not Available [facility] ([facility]) [address] [place], [address], 09/22/2022 21:08:05 09/22/19 23 09/22/2022 COMP. METAB OLIC PANEL (14) A/G ratio 0.7 1.2-2. 2 below low normal Not Available [facility] ([facility]) [address] [place], [address], 09/22/2022 21:08:05 09/22/19 23 09/22/2022 COMP. METAB OLIC PANEL (14) bilirubin, total 1.0 mg/dL 0.0-1. 2 Not Available [facility] ([facility]) [address] [place], [address], 09/22/2022 21:08:05 09/22/19 23 09/22/2022 COMP. METAB OLIC PANEL (14) alkaline phosphatase 221 IU/L 44-121 above high normal Not Available [facility] ([facility]) [address] [place], [address], 09/22/2022 21:08:05 09/22/19 23 09/22/2022 COMP. METAB OLIC PANEL (14) AST (SGOT) 13 IU/L 0-40 Not Available [facility] ([facility]) [address] [place], [address], 09/22/2022 21:08:05 09/22/19 23 09/22/2022 COMP. METAB OLIC PANEL (14) ALT (SGPT) 6 IU/L 0-44 Not Available [facility] ([facility]) [address] [place], [address], 09/22/2022 21:08:05 09/22/19 23 09/22/2022 CBC WITH DIFFE RENTI AL/PL ATELE T WBC 6.6 x10e3 /uL 3.4-10 .8 Not Available [facility] ([facility]) [address] [place], [address], 09/22/2022 21:08:06 09/22/19 23 09/22/2022 CBC WITH DIFFE RENTI AL/PL ATELE T RBC 5.12 x10e6 /uL 4.14-5 .80 Not Available [facility] ([facility]) [address] [place], [address], 09/22/2022 21:08:06 09/22/19 23 09/22/2022 CBC WITH DIFFE RENTI AL/PL ATELE T hemoglobin 14.2 g/dL 13.0-1 7.7 Not Available [facility] ([facility]) [address] [facility], [place], [address], 09/22/2022 21:08:06 09/22/19 23 09/22/2022 CBC WITH DIFFE RENTI AL/PL ATELE T hematocrit 46.5 % 37.5-5 1.0 Not Available [facility] ([facility]) [address] [facility], [place], [address], 09/22/2022 21:08:06 09/22/19 23 09/22/2022 CBC WITH DIFFE RENTI AL/PL ATELE T MCV 91 fL 79-97 Not Available [facility] ([facility]) [address] [facility], [place], [address], 09/22/2022 21:08:06 09/22/19 23 09/22/2022 CBC WITH DIFFE RENTI AL/PL ATELE T MCH 27.7 pg 26.6-3 3.0 Not Available [facility] ([facility]) [address] [place], [address], 09/22/2022 21:08:06 09/22/19 23 09/22/2022 CBC WITH DIFFE RENTI AL/PL ATELE T MCHC 30.5 g/dL 31.5-3 5.7 below low normal Not Available [facility] ([facility]) [address] [place], [address], 09/22/2022 21:08:06 09/22/19 23 09/22/2022 CBC WITH DIFFE RENTI AL/PL ATELE T RDW 13.3 % 11.6-1 5.4 Not Available [facility] ([facility]) [address] [place], [address], 09/22/2022 21:08:06 09/22/19 23 09/22/2022 CBC WITH DIFFE RENTI AL/PL ATELE T platelets 283 x10e3 /uL 150-45 0 Not Available [facility] ([facility]) [address], [place], [address], 09/22/2022 21:08:06 09/22/19 23 09/22/2022 CBC WITH DIFFE RENTI AL/PL ATELE T neutrophils 64 % notest ab. Not Available [facility] ([facility]) [address], [place], [address], 09/22/2022 21:08:06 09/22/19 23 09/22/2022 CBC WITH DIFFE RENTI AL/PL ATELE T lymphs 19 % notest ab. Not Available [facility] ([facility]) [address] [facility], [place], [address], 09/22/2022 21:08:06 09/22/19 23 09/22/2022 CBC WITH DIFFE RENTI AL/PL ATELE T monocytes 9 % notest ab. Not Available [facility] ([facility]) [address] [facility], [place], [address], 09/22/2022 21:08:06 09/22/19 23 09/22/2022 CBC WITH DIFFE RENTI AL/PL ATELE T eos 6 % notest ab. Not Available [facility] ([facility]) [address] [facility], [place], [address], 09/22/2022 21:08:06 09/22/19 23 09/22/2022 CBC WITH DIFFE RENTI AL/PL ATELE T basos 1 % notest ab. Not Available [facility] ([facility]) [address] [facility], [place], [address], 09/22/2022 21:08:06 09/22/19 23 09/22/2022 CBC WITH DIFFE RENTI AL/PL ATELE T neutrophils (absolute) 4.2 x10e3 /uL 1.4-7. 0 Not Available [facility] ([facility]) [address] [facility], [place], [address], 09/22/2022 21:08:06 09/22/19 23 09/22/2022 CBC WITH DIFFE RENTI AL/PL ATELE T lymphs (absolute) 1.3 x10e3 /uL 0.7-3. 1 Not Available [facility] ([facility]) [address] [facility], [place], [address], 09/22/2022 21:08:06 09/22/19 23 09/22/2022 CBC WITH DIFFE RENTI AL/PL ATELE T monocytes(ab solute) 0.6 x10e3 /uL 0.1-0. 9 Not Available [facility] ([facility]) [address] [facility], [place], [address], 09/22/2022 21:08:06 09/22/19 23 09/22/2022 CBC WITH DIFFE RENTI AL/PL ATELE T eos (absolute) 0.4 x10e3 /uL 0.0-0. 4 Not Available [facility] ([facility]) [address] [facility], [place], [address], 09/22/2022 21:08:06 09/22/19 23 09/22/2022 CBC WITH DIFFE RENTI AL/PL ATELE T baso (absolute) 0.1 x10e3 /uL 0.0-0. 2 Not Available [facility] ([facility]) [address] [facility], [place], [address], 09/22/2022 21:08:06 09/22/19 23 09/22/2022 CBC WITH DIFFE RENTI AL/PL ATELE T immature granulocytes 1 % notest ab. Not Available [facility] ([facility]) [address] [place], [address], 09/22/2022 21:08:06 09/22/19 23 09/22/2022 CBC WITH DIFFE RENTI AL/PL ATELE T immature grans (abs) 0.1 x10e3 /uL 0.0-0. 1 Not Available [facility] ([facility]) [address] [place], [address], 09/22/2022 21:08:06 09/22/1909/22/2022 HEMOG LOBIN A1C hemoglobin A1C 6.1 % 4.8-5. 6 above high normal Predi abete s: 5.7 - 6.4 Diabe lizzy: >6.4 Glyce jay jay contr ol for adult s with diabe lizzy: <7.0 Not Available [facility] ([facility]) [address] [place], [address], 09/22/2022 21:08:05 06/11/1906/12/2024 LIPID PANEL cholesterol, total 199 mg/dL 100-19 9 Not Available [facility] ([facility]) [address] [place], [address], 06/12/2024 08:24:19 06/11/1906/12/2024 LIPID PANEL triglyceride s 90 mg/dL 0-149 Not Available [facility] ([facility]) [address] [place], [address], 06/12/2024 08:24:19 06/11/1906/12/2024 LIPID PANEL HDL cholesterol 53 mg/dL >39 Not Available [facility] ([facility]) [address] [place], [address], 06/12/2024 08:24:19 06/11/1906/12/2024 LIPID PANEL VLDL cholesterol samuel 16 mg/dL 5-40 Not Available [facility] ([facility]) [address] [place], [address], 06/12/2024 08:24:19 06/11/19 25 06/12/2024 LIPID PANEL LDL chol calc ([facility]) 130 mg/dL 0-99 above high normal Not Available [facility] ([facility]) [address] [place], [address], 06/12/2024 08:24:19 06/11/19 25 06/12/2024 COMP. METAB OLIC PANEL (14) glucose 93 mg/dL 70-99 Not Available [facility] ([facility]) [address] [facility], [place], [address], 06/12/2024 08:24:21 06/11/19 25 06/12/2024 COMP. METAB OLIC PANEL (14) BUN 11 mg/dL 8-27 Not Available [facility] ([facility]) [address] [facility], [place], [address], 06/12/2024 08:24:21 06/11/19 25 06/12/2024 COMP. METAB OLIC PANEL (14) creatinine 0.62 mg/dL 0.76-1 .27 below low normal Not Available [facility] ([facility]) [address] [place], [address], 06/12/2024 08:24:21 06/11/19 25 06/12/2024 COMP. METAB OLIC PANEL (14) eGFR 105 mL/mi n/1.7 3 >59 Not Available [facility] ([facility]) [address] [place], [address], 06/12/2024 08:24:21 06/11/19 25 06/12/2024 COMP. METAB OLIC PANEL (14) BUN/creatini ne ratio 18 10-24 Not Available [facility] ([facility]) [address] [place], [address], 06/12/2024 08:24:21 06/11/19 25 06/12/2024 COMP. METAB OLIC PANEL (14) sodium 140 mmol/ L 134-14 4 Not Available [facility] ([facility]) [address] [place], [address], 06/12/2024 08:24:21 06/11/19 25 06/12/2024 COMP. METAB OLIC PANEL (14) potassium 4.4 mmol/ L 3.5-5. 2 Not Available [facility] ([facility]) [address] [place], [address], 06/12/2024 08:24:21 06/11/19 25 06/12/2024 COMP. METAB OLIC PANEL (14) chloride 99 mmol/ L 96-106 Not Available [facility] ([facility]) [address] [place], [address], 06/12/2024 08:24:21 06/11/19 25 06/12/2024 COMP. METAB OLIC PANEL (14) carbon dioxide, total 26 mmol/ L 20-29 Not Available [facility] ([facility]) [address] [place], [address], 06/12/2024 08:24:21 06/11/19 25 06/12/2024 COMP. METAB OLIC PANEL (14) calcium 9.3 mg/dL 8.6-10 .2 Not Available [facility] ([facility]) [address] [place], [address], 06/12/2024 08:24:21 06/11/19 25 06/12/2024 COMP. METAB OLIC PANEL (14) protein, total 7.7 g/dL 6.0-8. 5 Not Available [facility] ([facility]) [address] [place], [address], 06/12/2024 08:24:21 06/11/19 25 06/12/2024 COMP. METAB OLIC PANEL (14) albumin 3.8 g/dL 3.9-4. 9 below low normal Not Available [facility] ([facility]) [address] [place], [address], 06/12/2024 08:24:21 06/11/19 25 06/12/2024 COMP. METAB OLIC PANEL (14) globulin, total 3.9 g/dL 1.5-4. 5 Not Available [facility] ([facility]) [address] [place], [address], 06/12/2024 08:24:21 06/11/19 25 06/12/2024 COMP. METAB OLIC PANEL (14) bilirubin, total 0.3 mg/dL 0.0-1. 2 Not Available [facility] ([facility]) [address] [place], [address], 06/12/2024 08:24:21 06/11/19 25 06/12/2024 COMP. METAB OLIC PANEL (14) alkaline phosphatase 113 IU/L 44-121 Not Available [facility] ([facility]) [address] [place], [address], 06/12/2024 08:24:21 06/11/19 25 06/12/2024 COMP. METAB OLIC PANEL (14) AST (SGOT) 15 IU/L 0-40 Not Available [facility] ([facility]) [address] [place], [address], 06/12/2024 08:24:21 06/11/19 25 06/12/2024 COMP. METAB OLIC PANEL (14) ALT (SGPT) 9 IU/L 0-44 Not Available [facility] ([facility]) [address] [place], [address], 06/12/2024 08:24:21 06/11/1906/12/2024 URINA LYSIS , ROUTI NE specific gravity 1.013 1.005- 1.030 Not Available [facility] ([facility]) [address] [place], [address], 06/12/2024 08:24:22 06/11/19 25 06/12/2024 URINA LYSIS , ROUTI NE pH 6.0 5.0-7. 5 Not Available [facility] ([facility]) [address] [place], [address], 06/12/2024 08:24:22 06/11/19 25 06/12/2024 URINA LYSIS , ROUTI NE urine-color YELLOW yellow Not Available [facility] ([facility]) [address] [facility], [place], [address], 06/12/2024 08:24:22 06/11/19 25 06/12/2024 URINA LYSIS , ROUTI NE appearance CLEAR clear Not Available [facility] ([facility]) [address] [place], [address], 06/12/2024 08:24:22 06/11/1906/12/2024 URINA LYSIS , ROUTI NE WBC esterase NEGATI VE negati ve Not Available [facility] ([facility]) [address] [place], [address], 06/12/2024 08:24:22 06/11/19 25 06/12/2024 URINA LYSIS , ROUTI NE protein NEGATI VE negati ve/tra ce Not Available [facility] ([facility]) [address] [place], [address], 06/12/2024 08:24:22 06/11/19 25 06/12/2024 URINA LYSIS , ROUTI NE glucose NEGATI VE negati ve Not Available [facility] ([facility]) [address] [place], [address], 06/12/2024 08:24:22 06/11/19 25 06/12/2024 URINA LYSIS , ROUTI NE ketones NEGATI VE negati ve Not Available [facility] ([facility]) [address] [place], [address], 06/12/2024 08:24:22 06/11/19 25 06/12/2024 URINA LYSIS , ROUTI NE occult blood NEGATI VE negati ve Not Available [facility] ([facility]) [address] [facility], [place], [address], 06/12/2024 08:24:22 06/11/1906/12/2024 URINA LYSIS , ROUTI NE bilirubin NEGATI VE negati ve Not Available [facility] ([facility]) [address] [facility], [place], [address], 06/12/2024 08:24:22 06/11/1906/12/2024 URINA LYSIS , ROUTI NE urobilinogen ,semi-qn 0.2 mg/dL 0.2-1. 0 Not Available [facility] ([facility]) [address] [place], [address], 06/12/2024 08:24:22 06/11/1906/12/2024 URINA LYSIS , ROUTI NE nitrite, urine NEGATI VE negati ve Not Available [facility] ([facility]) [address] [place], [address], 06/12/2024 08:24:22 06/11/1906/12/2024 URINA LYSIS , ROUTI NE microscopic examination COMMEN T Micro scopi c not indic ated and not perfo rmed. Not Available [facility] ([facility]) [address] [place], [address], 06/12/2024 08:24:22 06/11/1906/12/2024 CBC WITH DIFFE RENTI AL/PL ATELE T WBC 7.4 x10e3 /uL 3.4-10 .8 Not Available [facility] ([facility]) [address] [place], [address], 06/12/2024 08:24:24 06/11/1906/12/2024 CBC WITH DIFFE RENTI AL/PL ATELE T RBC 4.65 x10e6 /uL 4.14-5 .80 Not Available [facility] ([facility]) [address] [place], [address], 06/12/2024 08:24:24 06/11/19 25 06/12/2024 CBC WITH DIFFE RENTI AL/PL ATELE T hemoglobin 14.3 g/dL 13.0-1 7.7 Not Available [facility] ([facility]) [address] [facility], [place], [address], 06/12/2024 08:24:24 06/11/19 25 06/12/2024 CBC WITH DIFFE RENTI AL/PL ATELE T hematocrit 43.2 % 37.5-5 1.0 Not Available [facility] ([facility]) [address] [place], [address], 06/12/2024 08:24:24 06/11/19 25 06/12/2024 CBC WITH DIFFE RENTI AL/PL ATELE T MCV 93 fL 79-97 Not Available [facility] ([facility]) [address] [place], [address], 06/12/2024 08:24:24 06/11/19 25 06/12/2024 CBC WITH DIFFE RENTI AL/PL ATELE T MCH 30.8 pg 26.6-3 3.0 Not Available [facility] ([facility]) [address] [place], [address], 06/12/2024 08:24:24 06/11/19 25 06/12/2024 CBC WITH DIFFE RENTI AL/PL ATELE T MCHC 33.1 g/dL 31.5-3 5.7 Not Available [facility] ([facility]) [address] [place], [address], 06/12/2024 08:24:24 06/11/19 25 06/12/2024 CBC WITH DIFFE RENTI AL/PL ATELE T RDW 12.0 % 11.6-1 5.4 Not Available [facility] ([facility]) [address] [place], [address], 06/12/2024 08:24:24 06/11/19 25 06/12/2024 CBC WITH DIFFE RENTI AL/PL ATELE T platelets 335 x10e3 /uL 150-45 0 Not Available [facility] ([facility]) [address] [facility], [place], [address], 06/12/2024 08:24:24 06/11/19 25 06/12/2024 CBC WITH DIFFE RENTI AL/PL ATELE T neutrophils 64 % notest ab. Not Available [facility] ([facility]) [address] [facility], [place], [address], 06/12/2024 08:24:24 06/11/19 25 06/12/2024 CBC WITH DIFFE RENTI AL/PL ATELE T lymphs 17 % notest ab. Not Available [facility] ([facility]) [address] [facility], [place], [address], 06/12/2024 08:24:24 06/11/19 25 06/12/2024 CBC WITH DIFFE RENTI AL/PL ATELE T monocytes 10 % notest ab. Not Available [facility] ([facility]) [address] [facility], [place], [address], 06/12/2024 08:24:24 06/11/19 25 06/12/2024 CBC WITH DIFFE RENTI AL/PL ATELE T eos 8 % notest ab. Not Available [facility] ([facility]) [address] [facility], [place], [address], 06/12/2024 08:24:24 06/11/19 25 06/12/2024 CBC WITH DIFFE RENTI AL/PL ATELE T basos 1 % notest ab. Not Available [facility] ([facility]) [address] [facility], [place], [address], 06/12/2024 08:24:24 06/11/19 06/12/2024 CBC WITH DIFFE RENTI AL/PL ATELE T neutrophils (absolute) 4.7 x10e3 /uL 1.4-7. 0 Not Available [facility] ([facility]) [address] [place], [address], 06/12/2024 08:24:24 06/11/19 25 06/12/2024 CBC WITH DIFFE RENTI AL/PL ATELE T lymphs (absolute) 1.2 x10e3 /uL 0.7-3. 1 Not Available [facility] ([facility]) [address] [place], [address], 06/12/2024 08:24:24 06/11/19 25 06/12/2024 CBC WITH DIFFE RENTI AL/PL ATELE T monocytes(ab solute) 0.8 x10e3 /uL 0.1-0. 9 Not Available [facility] [facility]) [address] [facility], [place], [address], 06/12/2024 08:24:24 06/11/19 25 06/12/2024 CBC WITH DIFFE RENTI AL/PL ATELE T eos (absolute) 0.6 x10e3 /uL 0.0-0. 4 above high normal Not Available [facility] ([facility]) [address] [facility], [place], [address], 06/12/2024 08:24:24 06/11/19 25 06/12/2024 CBC WITH DIFFE RENTI AL/PL ATELE T baso (absolute) 0.0 x10e3 /uL 0.0-0. 2 Not Available [facility] ([facility]) [address] [place], [address], 06/12/2024 08:24:24 06/11/19 25 06/12/2024 CBC WITH DIFFE RENTI AL/PL ATELE T immature granulocytes 0 % notest ab. Not Available [facility] ([facility]) [address] [place], [address], 06/12/2024 08:24:24 06/11/19 25 06/12/2024 CBC WITH DIFFE RENTI AL/PL ATELE T immature grans (abs) 0.0 x10e3 /uL 0.0-0. 1 Not Available [facility] ([facility]) [address] [place], [address], 06/12/2024 08:24:24 06/11/19 25 06/12/2024 NT-WA OBNP nt-probnp 99 pg/mL 0-376 The follo [...] enden t 300 pg/mL Not Available [facility] ([facility]) [address] [place], [address], 06/13/2024 06:25:12 06/11/19 25 06/12/2024 DRUG PROFI LE,UR ,9 DRUGS ,BUND amphetamines , urine NEGATI VE NG/mL cutoff =1000 Amphe tamin e test inclu lennox Amphe tamin e and Metha mphet amine . Not Available [facility] ([facility]) [address] [place], [address], 06/13/2024 06:25:13 06/11/19 25 06/12/2024 DRUG PROFI LE,UR ,9 DRUGS ,BUND barbiturate NEGATI VE NG/mL cutoff =300 Not Available [facility] ([facility]) [address] [place], [address], 06/13/2024 06:25:13 06/11/19 25 06/12/2024 DRUG PROFI LE,UR ,9 DRUGS ,BUND benzodiazepi martin NEGATI VE NG/mL cutoff =300 Not Available [facility] ([facility]) [address] [place], [address], 06/13/2024 06:25:13 06/11/19 25 06/12/2024 DRUG PROFI LE,UR ,9 DRUGS ,BUND cannabinoid NEGATI VE NG/mL cutoff =50 Not Available [facility] ([facility]) [address] [place], [address], 06/13/2024 06:25:13 06/11/19 25 06/12/2024 DRUG PROFI LE,UR ,9 DRUGS ,BUND cocaine (metab.) NEGATI VE NG/mL cutoff =300 Not Available [facility] ([facility]) [address] [place], [address], 06/13/2024 06:25:13 06/11/19 25 06/12/2024 DRUG PROFI LE,UR ,9 DRUGS ,BUND opiates NEGATI VE NG/mL cutoff =300 Opiat e test inclu lennox Codei ne and Morph ine only. Not Available [facility] ([facility]) [address] [place], [address], 06/13/2024 06:25:13 06/11/19 25 06/12/2024 DRUG PROFI LE,UR ,9 DRUGS ,BUND phencyclidin e NEGATI VE NG/mL cutoff =25 Not Available [facility] ([facility]) [address] [place], [address], 06/13/2024 06:25:13 06/11/19 25 06/12/2024 DRUG PROFI LE,UR ,9 DRUGS ,BUND methadone screen, urine NEGATI VE NG/mL cutoff =300 Not Available [facility] ([facility]) [address] [place], [address], 06/13/2024 06:25:13 06/11/1906/12/2024 DRUG PROFI LE,UR ,9 DRUGS ,BUND propoxyphene , urine NEGATI VE NG/mL cutoff =300 Eff ectiv e July 16, 2024, this test will be disco ntinu ed. Pleas e conta ct your [facility] r[facility] repre senta tive for sugge sted repla cemen t test optio ns. Not Available [facility] ([facility]) [address] [facility], [place], [address], 06/13/2024 06:25:13 06/11/1906/12/2024 TSH TSH 3.490 uIU/m L 0.450- 4.500 Not Available [facility] ([facility]) [address] [facility], [place], [address], 06/13/2024 06:25:14 06/11/1906/12/2024 PROST ATE-S PECIF IC [...] kits canno t be used inter gonzalez molly . Resul ts canno t be inter prete d as absol [place] evide nce of the prese nce or absen ce of ana laura portillo se. Not Available [facility] ([facility]) [address] [facility], [place], [address], 06/13/2024 06:25:15 06/11/19 25 06/12/2024 VITAM IN [...] IOM (Inst itute of Medic ine). 2009. Lidia ry refer ence dionne es for calci um and D. Lyudmila yang [place]: [facility] . 2. Maris catalan MF, Pepe mata [place], Narciso off-F errar i ORTEGA, et al. Evalu ation , treat ment, and preve ntion of vitam in D defic iency : an Endoc rine Socie ty clini samuel pract ice guide line. JCEM. 2010; 96(7) :1911 -30. Not Available [facility] ([facility]) [address] [place], [address], 06/13/2024 06:25:16 10/27/19 25 10/27/2024 BASIC METAB OLIC PANEL (7) glucose 102 mg/dL 70-99 above high normal Not Available [facility] ([facility]) [address] [place], [address], 10/27/2024 06:16:21 10/27/19 25 10/27/2024 BASIC METAB OLIC PANEL (7) BUN 14 mg/dL 8-27 Not Available [facility] ([facility]) [address] [place], [address], 10/27/2024 06:16:21 10/27/19 25 10/27/2024 BASIC METAB OLIC PANEL (7) creatinine 0.93 mg/dL 0.76-1 .27 Not Available [facility] ([facility]) [address] [facility], [place], [address], 10/27/2024 06:16:21 10/27/1910/27/2024 BASIC METAB OLIC PANEL (7) eGFR 91 mL/mi n/1.7 3 >59 Not Available [facility] ([facility]) [address] [facility], [place], [address], 10/27/2024 06:16:21 10/27/1910/27/2024 BASIC METAB OLIC PANEL (7) BUN/creatini ne ratio 15 10-24 Not Available [facility] ([facility]) [address] [facility], [place], [address], 10/27/2024 06:16:21 10/27/1910/27/2024 BASIC METAB OLIC PANEL (7) sodium 140 mmol/ L 134-14 4 Not Available [facility] ([facility]) [address] [facility], [place], [address], 10/27/2024 06:16:21 10/27/1910/27/2024 BASIC METAB OLIC PANEL (7) potassium 4.1 mmol/ L 3.5-5. 2 Not Available [facility] ([facility]) [address] [facility], [place], [address], 10/27/2024 06:16:21 10/27/1910/27/2024 BASIC METAB OLIC PANEL (7) chloride 100 mmol/ L 96-106 Not Available [facility] ([facility]) [address], [place], [address], 10/27/2024 06:16:21 10/27/1910/27/2024 BASIC METAB OLIC PANEL (7) carbon dioxide, total 24 mmol/ L 20-29 Not Available [facility] ([facility]) [address] [place], [address], 10/27/2024 06:16:21 10/27/1910/26/2024 CBC, PLATE LET, NO DIFFE RENTI AL WBC 6.1 x10e3 /uL 3.4-10 .8 Not Available [facility] ([facility]) [address] [facility] [facility], [place], [address], 10/27/2024 06:16:22 10/27/1910/26/2024 CBC, PLATE LET, NO DIFFE RENTI AL RBC 4.22 x10e6 /uL 4.14-5 .80 Not Available [facility] ([facility]) [address] [facility] [facility], [place], [address], 10/27/2024 06:16:22 10/27/1910/26/2024 CBC, PLATE LET, NO DIFFE RENTI AL hemoglobin 12.5 g/dL 13.0-1 7.7 below low normal Not Available [facility] ([facility]) [address] [facility] [facility], [place], [address], 10/27/2024 06:16:22 10/27/1910/26/2024 CBC, PLATE LET, NO DIFFE RENTI AL hematocrit 39.5 % 37.5-5 1.0 Not Available [facility] ([facility]) [address] [facility] [facility], [place], [address], 10/27/2024 06:16:22 10/27/1910/26/2024 CBC, PLATE LET, NO DIFFE RENTI AL MCV 94 fL 79-97 Not Available [facility] ([facility]) [address] [facility] [facility], [place], [address], 10/27/2024 06:16:22 10/27/1910/26/2024 CBC, PLATE LET, NO DIFFE RENTI AL MCH 29.6 pg 26.6-3 3.0 Not Available [facility] ([facility]) [address] [facility] [facility], [place], [address], 10/27/2024 06:16:22 10/27/1910/26/2024 CBC, PLATE LET, NO DIFFE RENTI AL MCHC 31.6 g/dL 31.5-3 5.7 Not Available [facility] ([facility]) [address] [facility] [facility], [place], [address], 10/27/2024 06:16:22 10/27/1910/26/2024 CBC, PLATE LET, NO DIFFE RENTI AL RDW 12.8 % 11.6-1 5.4 Not Available [facility] ([facility]) [address] [facility], [place], [address], 10/27/2024 06:16:22 10/27/1910/26/2024 CBC, PLATE LET, NO DIFFE RENTI AL platelets 269 x10e3 /uL 150-45 0 Not Available [facility] ([facility]) [address] [facility], [place], [address], 10/27/2024 06:16:22 10/27/1910/26/2024 HEMOG LOBIN A1C hemoglobin A1C 5.8 % 4.8-5. 6 above high normal Predi abete s: 5.7 - 6.4 Diabe lizzy: >6.4 Glyce jay jay contr ol for adult s with diabe lizzy: <7.0 Not Available [facility] ([facility]) [address] [facility], [place], [address], 10/27/2024 06:16:24 05/07/1905/07/2022 XR, chest , 2 view No observ ation record ed. [email or web address], [place], [address], 05/10/2022 10:54:17 05/07/19 23 05/07/2022 XR, chest , 2 view No observ ation record ed. [email or web address], [place], [address], 05/10/2022 10:54:26 06/09/19 23 06/09/2022 compl ete PFT w/ post [facility] hodil ator selam metry * No observ ation record ed. [email or web address], [place], [address], 06/10/2022 11:36:06 12/09/19 23 12/08/2022 XR, chest , 2 view No observ ation record ed. [address], [place], [address], 12/09/2022 13:50:26 12/09/19 23 12/08/2022 CT, head + brain , w/o contr ast No observ ation record ed. [address], [place], [address], 12/09/2022 13:50:50 12/10/19 23 12/09/2022 , [facility] No observ ation record ed. [address], [place], [address], 12/09/2022 13:51:24 12/10/19 23 12/08/2022 CT, chest , w/o contr ast No observ ation record ed. [address], [place], [address], 12/09/2022 13:52:10 01/04/20 24 01/04/2024 CT, brain , w/o contr ast No observ ation record ed. [address], [place], [address], 06/11/2024 14:16:13 01/04/20 24 01/04/2024 XR, facia l bones No observ ation record ed. [address], [place], [address], 06/11/2024 14:17:13 08/04/19 25 08/03/2024 XR, chest No observ ation record ed. [address], [place], [address], 10/26/2024 09:51:27 08/15/19 25 08/14/2024 CT, angio gram, chest , w/ contr ast No observ ation record ed. [address], [place], [address], 10/26/2024 09:51:27 09/19/19 25 09/18/2024 XR, chest No observ ation record ed. [address], [place], [address], 10/26/2024 09:51:27 09/19/19 25 09/18/2024 CT, chest , w/o contr ast No observ ation record ed. [address], [place], [address], 10/26/2024 09:51:27 09/30/19 25 09/29/2024 XR, kidne y + urete r + bladd er No observ ation record ed. [address], [place], [address], 10/26/2024 09:51:26 09/30/19 25 09/28/2024 XR, chest No observ ation record ed. [address], [place], [address], 10/26/2024 09:51:27 09/30/19 25 09/29/2024 US, shule x, venou s, lower extre mity No observ ation record ed. [address], [place], [address], 10/26/2024 09:51:26 10/01/19 25 09/30/2024 XR, chest No observ ation record ed. [address], [place], [address], 10/26/2024 09:51:26 10/02/19 25 10/01/2024 XR, chest No observ ation record ed. [address] [facility], [place], [address], 10/26/2024 09:51:26 10/03/19 25 10/02/2024 XR, chest No observ ation record ed. [address] [facility], [place], [address], 10/26/2024 09:51:26 12/04/19 25 12/03/2024 six minut e walk test* No observ ation record ed. [address] [address], [place], [address], 12/03/2024 17:28:48 12/04/19 25 12/03/2024 PFT, compl ete No observ ation record ed. [address] [facility], [place], [address], 12/03/2024 17:29:26 Result Notes Documentation Provider Name and Address Organization Details Recorded Time Ct, Angiogram, Chest, W/ Contrast : Severe Emphysema Dominick Kennedy MD Attn: Accounting,[address] [place], [address], [facility] 10/26/2024 09:51:27 Problems Name Problem SNOMED Code Status Onset Date Resolution Date Notes Provider Name and Address Organization Details Recorded Time Chronic obstructi ve pulmonary disease 22693134 Active 2019 Not Available [facility] 4 15:45:45 Congestiv e heart failure 12450999 Active 2019 Not Available [facility] 4 15:45:45 Hypertens juan disorder 77476092 Active 2019 Not Available [facility] 4 15:45:45 Screening for malignant neoplasm of colon Active 2019 Not Available [facility] 4 15:45:45 Harmful pattern of use of opioid 4456004 Active 2019 per ER note on 03/18/20 he snorts and injects fentanyl Not Available [facility] 4 15:45:45 Alcoholis m 1047402 Active 2020 Not Available [facility] 4 15:45:45 Obesity 580661239 Active 2022 Not Available [facility] 4 15:45:45 Fentanyl dependenc e 351423378 Active 2022 Not Available [facility] 4 15:45:45 Dependenc e on supplemen jack oxygen 11177783852 7 Active 2024 Dominick Kennedy MD Attn: Accounting ,[address] [facility], [place], [place], [address] [place] [address] , [place] [facility] 5 19:32:23 History of nicotine dependenc e Active 2024 Dominick Kennedy MD Attn: Accounting ,[address] [place], [place], [address] [place] [address] , [place] [facility] 5 19:33:53 Tetanus vaccinati on declined by patient 164562300 Active 2024 Dominick Kennedy MD Attn: Accounting ,[address] [place], [place], [address] [place] [address] , [place] [facility] 5 19:33:57 Benign essential hypertens ion 5098185 Active 2024 Dominick Kennedy MD Attn: Accounting ,[address] [place], [place], [address] [place] [address] , [place] [facility] 5 09:37:26 Disorder of lipid metabolis m 180325170 Active 2024 Dominick Kennedy MD Attn: Accounting ,[address] [place], [address] , [place] [facility] 5 09:37:33 Impaired fasting glycemia 904625809 Active 2024 Dominick Kennedy MD Attn: Accounting ,[address] [place], [address] , [place] [facility] 5 10:03:52 Hyperchol esterolem ia 43423977 Active 2024 Dominick Kennedy MD Attn: Accounting ,[address] [place], [address] , [facility] 5 10:07:01 Obstructi ve sleep apnea syndrome 61399983 Active 2024 Dominick Kennedy MD Attn: Accounting ,[address] [place], [address] , [facility] 5 10:59:54 Problem Notes None recorded. Procedures Surgical History Date Name Laterality Status Provider Name and Address Organization Details Recorded Time 5 Diabetic Foot Exam completed Dominick Kennedy MD Attn: Accounting,[address] [place], [address], [facility] 06/11/2024 19:37:15 1 Routine Foot Care completed CAROL SARKAR DPM [address] [place], [address], [facility] 02/10/2021 17:00:45 7 lobectomy of lower lobe of right lung completed JOHN TATE NP [address] [place], [address], [facility] 08/24/2019 11:49:34 Oral surgery procedure completed Dominick Kennedy MD Attn: Accounting,[address] [place], [address], [facility] 06/11/2024 14:34:21 Imaging Results None recorded. Procedure [...] Not Available No t Available Afluria Quad 4614-8809 (PF) 60 mcg (15 mcg x 4)/0.5 [...] 97 % VICTORIA SPARKS Attn: Accounting, [address] [facility], [place], [address], [facility] 05/22/2022 08:58:57 Date Recorded Body height Body mass index (BMI) Body weight Systolic And Diastolic Provider Name and Address Organization Details Last Updated DateTime 05/20/2022 182.88 cm 34.2 kg/m2 984979.08 g 130/84 mm[Hg] Carolina Babin MA [facility] 05/20/2022 15:34:10 Date Recorded Body height Body mass index (BMI) Body weight Heart rate Oxygen saturation Oxygen saturation in Arterial blood by Pulse oximetry Inhaled oxygen flow rate Respiratory rate Body temperature Systolic And Diastolic Provider Name and Address Organization Details Last Updated DateTime 5 182.88 cm 34.7 kg/m2 023231. 65 g 104 /min 92 % 92 % 4 L/min 18 /min 98.5 [degF] 126/60 mm[Hg] Tuyet Chou MA [facility] 5 14:14:20 Date Recorded Body height Body mass index (BMI) Body weight Heart rate Oxygen saturation Oxygen saturation in Arterial blood by Pulse oximetry Systolic And Diastolic Provider Name and Address Organization Details Last Updated DateTime 3 182.88 cm 35.7 kg/m2 729534. 89 g 103 /min 94 % 94 % 134/86 mm[Hg] Carolina Babin MA [facility] 3 14:10:00 Date Recorded Body height Body mass index (BMI) Body weight Heart rate Oxygen saturation Oxygen saturation in Arterial blood by Pulse oximetry Respiratory rate Body temperature Systolic And Diastolic Provider Name and Address Organization Details Last Updated DateTime 5 182.88 cm 38.1 kg/m2 033673. 02 g 94 /min 95 % 95 % 18 /min 98.5 [degF] 124/66 mm[Hg] Tuyet Chou MA [facility] 5 09:29:20 Date Recorded Body height Body mass index (BMI) Body weight Heart rate Oxygen saturation Oxygen saturation in Arterial blood by Pulse oximetry Systolic And Diastolic Provider Name and Address Organization Details Last Updated DateTime 2 182.88 cm 34.9 kg/m2 949645. 24 g 107 /min 96 % 96 % 110/68 mm[Hg] VICTORIA SPARKS Attn: Gentry dayron,[address] [place], [address], [facility] 2 15:31:32 Social History Question Answer Notes LastModified by Organizat ion Details LastModified Time Tobacco Smoking Status Former Smoker Tuyet Chou MA null, [place] [facility] 10/26/2024 09:30:56 How Many Years Have [...] Has Tobacco Cessation Counseling Been Provided? Yes [email or web address] Information not available 09/21/2022 On What Date [...] History Condition Response Coronary Artery Disease N Other N Gout N Atrial Fibrillation N High Blood Pressure Y Hyperthyroidism N Thyroid Problems N Kidney or Bladder Problems N COPD N Blood Clots N Hypothyroidism N Depression N GI Problems N Skin Problems N Osteoporosis/Osteopenia N Anemia N Heart Attack ([place]) N Anxiety Disorder N Diabetes N Muscle, [...] virus, quadrivalent, PF 2 completed Not Available [facility] 10/26/2024 09:14:52 Hep A, adult 3 completed Not Available [facility] 10/26/2024 09:14:52 HepB-CpG 3 completed Not Available [facility] 10/26/2024 09:14:52 COVID-19, mRNA, LNP-S, PF, 100 mcg/0.5mL dose or 50 mcg/0.25mL dose 1 completed Dorinda Franco MA null, [place] [facility] 08/08/2020 15:03:55 COVID-19, mRNA, LNP-S, PF, 100 mcg/0.5mL dose or 50 mcg/0.25mL dose 1 completed Carlito Sue [place], [place] [facility] 09/10/2020 16:31:25 Pneumococcal conjugate PCV20, polysaccharide [id number] conjugate, adjuvant, PF 3 completed VICTORIA SPARKS Attn: Accounting,[address] [place], [address], [place] [facility] 09/30/2022 13:52:31 Past Encounters Encounter ID Performer Location Encounter Start Date Encounter Closed Date Diagnosis/Indication Diagnosis SNOMED-CT Code Diagnosis ICD10 Code Diagnosis IMO Codes Diagnosis Note [id number] Nora Pierce MD [facility] [address] [facility] [address] [place] [address] 03/16/2018 16:07:50 03/17/2018 14:42:04 Chronic obstructive pulmonary disease 17917895 J44.9 Chronic lung disease, likely COPD Patient [...] evaluate lung functional status Congestive heart failure 32726512 I50.9 Heart failure with preserved ejection fraction [...] to be on chronic Lasix dose Cellulitis 381806938 L03 .90 LE cellulitis , subsequent encounter, [...] to complete course as prescribed at hospital [id number] Omar Rileyson [facility] [address] [facility] [address] [place] [address] 09/05/2018 14:52:54 09/06/2018 10:18:02 Chronic obstructive pulmonary disease 86788332 J44.9 COPD Patient likely has COPD as he had no history of childhood asthma and has approximat kamran 1 pack/day 20-year history of smoking and citing some occasional shortness of breath. -Albuterol as needed shortness of breath - Pulm referral for PFTs Neck pain 07684811 M54.2 Neck pain Patient fallen off his [...] - Cervical neck x-ray Low back pain 690384321 M54.5 Back pain Patient endorsed chronic history [...] spine - Tylenol scheduled - Ibuprofen scheduled [id number] VICTORIA SPARKS [facility] [address] [place] [address] 04/27/2019 14:29:14 04/30/2019 09:34:07 Numbness of hand 607565221 R20.0 Chronic ob structive pulmonary disease 95452354 J44.9 COPD Patient likely has COPD as he had no history of childhood asthma and has approximat kamran 1 pack/day 30-year history of smoking and citing some occasional shortness of breath. -Albuterol as needed shortness of breath - LDCT as 53 with over 30 pack year smoker- stop smoking Neck pain 40736604 M54.2 Neck pain Patient fallen off his couch over 9 months ago which has resulted in mild neck pain and some persistent forward flexion 2/2 pain. Physical exam today nothing concerning for significan t fracture. never got xray ordered by last provider. - Tylenol scheduled - Ibuprofen schedule Low back pain 654005028 M54.5 Patient endorsed chronic history of low [...] appreciate d - Ibuprofen scheduled Heart failure 15373583 I 50.9 patient has a history of heart failure. Sending to cardiology . Headache 48610394 R51 patient endorses 9 months of headaches after falling off couch. Headaches are occipital and dull in nature. They happen everyday. He has the worst headache last week but did not seek medical help despite telling him to go. - educated on headahces and going to ER if worst headache, develops weakness on one side, slurring words Essential hypertension 36431582 I10 BP 130/80, WNLAdvised to check BP regularly with a goal of <140/90, if BP consistent ly >140/90, advised to contact clinic Discussed DASH diet Advised 30 minutes of exercise minimum daily Advised tobacco, alcohol, caffeine all increase BP Advised goal for BP is <140/90 Hypercholesterolemia 136 16136 E78.00 patient given labs as he is not fasting today. Prediabetes 945608574 R7 3.03 Chest pain on exertion 12575488 R07.89 patient has chest pain on exertions. [...] away. Screening for malignant neoplasm of colon 431638726 Z12.11 Has never had a colonoscop y. Patient agrees to have this done. [id number] Rubina Vila MD [facility] [address] [place] [address] 05/02/2019 13:48:25 05/08/2019 11:51:44 Hyperlipidemia 62976701 E78.5 [id number] VICTORIA SPARKS [facility] [address] [place] [address] 06/28/2019 09:58:09 06/29/2019 09:37:49 Abscess 747261673 L02.91 patient has pain in for x 3 days. On exam patient has abscess that has been draining some. He refused to let me drain it here. Will start clindamyci n to cover for MRSA and pseudomona s. kristin ambler around area and asked patient to report to ER if redness continues to spread. Patient is to go home and apply warm compress to allow area to continue draining. He is to f/u next week in infection persists and needs xray to asess for bone infection. Essential hypertension 44027694 I10 BP 122/96, not WNL, did not take all medication todayAdvis ed to check BP regularly with a goal of <140/90, if BP consistent ly >140/90, advised to contact clinic Discussed DASH diet Advised 30 minutes of exercise minimum daily Advised tobacco, alcohol, caffeine all increase BP Advised goal for BP is <140/90 Heart failure 21627666 I 50.9 patient has a history of heart failure. He is on appropriat e medication s. - given informatio n on cardiologi st- limit sodium- excercise 30 mins 5x week- DASH diet- avoid alcohol and other drugs- stop smoking Chronic ob structive pulmonary disease 84477791 J44.9 COPD Patient likely has COPD as he had no history of childhood asthma and has approximat kamran 1 pack/day 30-year history of smoking and citing some occasional shortness of breath. - Albuterol as needed shortness of breath - LDCT as 53 with over 30 pack year smoker- stop smoking Hypercholesterolemia 136 18345 E78.00 refill 05/01/19 TC 181, tri 90, HDL 44, LDL 119 - encouraged to watch red meats, fried food, fast food- excercise 30 mins 5x week- continue medication as prescribed [id number] VICTORIA SPARKS [facility] [address] [place] [address] 08/10/2019 12:11:05 08/10/2019 15:36:26 Abscess [id number] L02.91 patient has pain in for x 3 days. On exam patient has abscess that has been draining some. He refused to let me drain it here. Will start clindamyci n to cover for MRSA and pseudomona s. kristin ambler around area and asked patient to report to ER if redness continues to spread. Patient is to go home and apply warm compress to allow area to continue draining. He is to f/u next week in infection persists and needs xray to asess for bone infection. [id number] VICTORIA SPARKS [facility] [address] [place] [address] 08/10/2019 12:49:52 08/13/2019 10:11:58 Abscess [id number] L02.91 continues to have draining swollen foot. advised to go to ER as he has failed two rounds of antibiotic s. He did not go to ER last time we spoke. He may have osteomyeli tis and it needs to be ruled out. [id number] Brooks Squires DO [facility] [address] [place] [address] 08/24/2019 08:02:25 09/17/2019 15:36:45 Screening for malignant neoplasm of colon 347385800 Z12.11 No FH or PMH of colon cancer of colon polyps Chronic ob structive pulmonary disease 76660821 J44.9 Managed in primary care Congestive heart failure 56549394 I50.9 Managed in primary care Hypertensive disorder 38 338013 I10 Managed in primary care [id number] VICTORIA SPARKS [facility] [address] [place] [address] 08/24/2019 09:26:17 08/27/2019 05:59:34 Acute injury of kidney [id number] 2225957 N17.9 Patient was found to have BLADE. Advised to stay hydrated and make appointmen t to have kidney check next week. Cellulitis 199954359 L03 .90 Patient did go to ER after being advised to do so. They ruled out osteomyeli tis and was released on bactrim 800-160 2 pills BID. He states his foot looks much better and erythema and swelling have improved. - finish abx- f/u if gets worse- keep wound clean [id number] VICTORIA SPARKS [facility] [address] [place] [address] 05/27/2020 08:49:38 05/29/2020 20:06:02 Harmful pattern of use of opioid 1047555 F11.10 fentanyl injected and snorted Congestive heart failure 28529420 I50.9 Patient is non complaint and injecting [...] lower your cholestero l levels. Substance abuse 06761468 F19.10 Per ER note on 03/18 patient is injecting fentanyl, taking xanax from the street, using meth, and drinking 3-6 double shots of alcohol per day. Given detox number through [facility], instructed to go to ER 24 hours after last fentanyl. Plan is to do detox and f/u here for anxiety/de pression medication Alcoholism 4420435 F10.2 0 patient down to 3-6 double shots per day of alcohol. [id number] MD Kyle Mcgowan [address] [facility] [place] [address] 08/08/2020 11:58:39 08/11/2020 18:29:09 Administration of SARS-CoV-2 antigen vaccine 180323221 Z23 [id number] MD Kyle Mcgowan [address] [facility] [place] [address] 09/10/2020 14:07:36 09/11/2020 09:28:38 Administration of SARS-CoV-2 antigen vaccine 611828391 Z23 [id number] VICTORIA SPARKS [facility] [address] [place] [address] 09/17/2020 15:28:41 09/22/2020 04:17:32 Cellulitis of left lower limb 7545837496 0023710 L03.116 Patient was admitted to [facility] for celulitis of left lower limb. He [...] ER. Will send to obtain records from [facility]. - Going to ER Chronic ob structive pulmonary disease 17597933 J44.9 COPD. need inhaler refilled. Patient likely has COPD as he had no history of childhood asthma and has approximat kamran 1 pack/day 30-year history of smoking and citing some occasional shortness of breath. - Albuterol as needed shortness of breath - LDCT as 53 with over 30 pack year smoker - stop smoking Heart failure 38016306 I 50.9 patient has a history of [...] alcohol and other drugs - stop smoking [id number] VICTORIA SPARKS [facility] [address] [place] [address] 10/06/2020 16:59:33 10/10/2020 12:44:16 Smoker 68772389 F17.200 advised to quit smoking. patient will start cutting down on his own Alcoholism 8776168 F10.2 0 patient down to 3-6 double shots per day of alcohol and states he has not drank since out of hospital Hypertensive disorder 38 286092 I10 Patient bp elevated today. He was out of medication and is to come by this week for BP check. Will refill. Per hospital labs kidneys are stable. Advised to check BP regularly with a goal of <140/90, if BP consistent ly >140/90, advised to contact clinicDisc lobito BARNETT dietAdvise d weight loss and diet is best way to control BPAdvised 30 minutes of exercise minimum dailyAdvis ed tobacco, alcohol, caffeine all increase BPAdvised goal for BP is <140/90 Cellulitis of left lower limb [id number] 3159501 L03.116 Patient was admitted at [facility] and completed three days and was discharged home with abx. He has just finished. Given number for wound care as he was referred out from hospital.- f/u 2 weeks- wound care- avoid fentynal, smoking to allow better healing- keep area clean Congestive heart failure 94475388 I50.9 Patient is non complaint and injecting [...] lower your cholestero l levels. Essential hypertension 19427941 I10 BP 122/96, not WNL, did not take all medication todayAdvis ed to check BP regularly with a goal of <140/90, if BP consistent ly >140/90, advised to contact clinic Discussed DASH diet Advised 30 minutes of exercise minimum daily Advised tobacco, alcohol, caffeine all increase BP Advised goal for BP is <140/90 Pulmonary hypertension 55569714 I27.20 Fentanyl dependence 4260 41823 F11.20 patient advised to go to [facility] detox program. He agrees and will think about it. I let him know I cannot treat fentynal abuse with hydrocodon e. Patient understand s. Mixed anxi ety and depressive disorder 471436871 F41.8 Patient will be treated for anxiety in hopes of weaning him off xanax. He was again advised to go through detox program through [facility]. He will consider it. - advised counseling [...] f/u one month - call with questions [id number] VICTORIA SPARKS [facility] [address] [place] [address] 01/06/2021 16:12:49 01/13/2021 12:22:20 Tinerin pedis [id number] B35.3 Congestive heart failure 65305295 I50.9 Patient is non complaint and injecting [...] lower your cholestero l levels. Ingrowing nail 340708608 L60.0 patient had long ingrown toe nails on b/l feet Smoker 84004110 F17.200 advised to quit smoking. patient will start cutting down on his own Cellulitis of left lower limb 2866623202 7752110 L03.116 appointmen t for would clinic made for patient today for January 26 at 1pm. number and address given to patient . he NCNS in September. advised [facility] to call and cancel if he cannot make it.-f/u 2 weeks- wound care- avoid fentynal, smoking to allow better healing- keep area clean [id number] CAROL SARKAR DPM [facility] [address] [place] [address] 02/10/2021 14:28:32 03/17/2021 08:52:13 Bilateral atherosclerosis of arteries of lower limbs 7680642689 4071155 I70.203 Localized edema 70110832 4 R60.0 Ankle pain 608135690 M25 .579 Onychomycosis 306883617 B35.1 Sweet - lesion 822677443 L84 Stasis francis matitis of lower limb due to chronic peripheral venous hypertension 901873922 I87.004 [id number] VICTORIA SPARKS [facility] [address] [place] [address] 03/15/2022 14:57:28 03/18/2022 09:46:44 Hospital inpatient stay within past 30 days 8544747196 106 Z76.89 - labs Screening for malignant neoplasm of respiratory tract 414709100 Z12.2 due for LDCT30+ pack year smoking hx Chronic ob structive pulmonary disease 77602944 J44.9 COPD. need inhaler refilled. using rescue [...] - stop smoking Chronic hepatitis C 1283 64165 B18.2 chronic hep C- lab- referral Pain of ri ght knee joint 2115419665 35508 M25.561 right knee pain post falling on it. Would like pain medication today but patient at risk of abuse due to alcoholism and fentanyl use. Edema of l ower extremity 058817890 R60.0 LE b/l edema with erythema. this is chronic Alcoholism 2198985 F10.2 0 patient down to 3-6 double shots per day of alcohol and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
[2025-02-21] MEDS: IPRATROPIUM 0.5 MG/ALBUTEROL SULFATE 2.5 MG (BASE) AMPUL.NEB 3 ML INHALATION (19:58)
--- OUTSIDE RECORDS SUMMARY | 2025-02-21 20:04 | XMS_ITS | Clinical Summary ---
Author Organization [facility] [place] [address] Address [address] [place] [address] Care Team Providers Care Horseradish Maker Name Role Phone Tomeka Knight Primary Care [...] (05/14/2022): Added automatically from request for surgery [id number] Obesity (BMI 30.0-34.9) 04/30/2022 Assessment & Plan (04/30/2022 4:49 PM STENCIL INSPECTOR): Diet and exercise. Right knee pain 04/28/2022 Assessment & Plan (04/29/2022 1:57 PM STENCIL INSPECTOR): Chronic. Right knee MRI 02/2022 demonstrated fracture of right medial femoral condyle, tear of right medial meniscus, and effusion/synovitis. Ortho recommended non op, WBAT. Has not followed up with ortho after discharge. -Encourage ortho follow up -Voltaren gel -APAP -seen by PT/OT; will discharge with walker and home therapy Assessment & Plan (04/28/2022 1:14 AM STENCIL INSPECTOR): Chronic. Right knee MRI 02/2022 demonstrated fracture of right medial femoral condyle, tear of right medial meniscus, and effusion/synovitis. Ortho recommended non op, WBAT. Has not followed up with ortho after discharge. -Encourage ortho follow up -Voltaren gel -APAP -PT/OT Alcohol abuse 04/28/2022 Assessment & Plan (04/28/2022 2:18 PM STENCIL INSPECTOR): Drinks 2- 3 shots before bed. No active withdrawals. -Thiamine, folate -Encourage Cessation -Monitor for withdrawal Assessment & Plan (04/28/2022 1:15 AM STENCIL INSPECTOR): Drinks 2- 3 shots before bed. No active withdrawals. -Thiamine, folate -Encourage Cessation -Monitor for withdrawal Elevated alkaline phosphatase level 04/28/2022 Assessment & Plan (04/30/2022 4:09 PM STENCIL INSPECTOR): Unclear etiology. HCV positive. GGTP elevated. Intra and extrahepatic dilatation noted on US; MRI to be performed later this evening. Assessment & Plan (04/28/2022 1:15 AM STENCIL INSPECTOR): Unclear etiology. HCV positive. -Check GGT and Liver ultrasound for now. HCV (hepatitis C virus) 04/28/2022 Assessment & Plan (04/28/2022 2:20 PM STENCIL INSPECTOR): Chronic and untreated. Missed ID clinic appointment 04/20/22; stated getting a ride is the problem. -Genotype pending. -Needs outpatient follow up. Assessment & Plan (04/28/2022 1:16 AM STENCIL INSPECTOR): Chronic and untreated. Missed ID clinic appointment 04/20/22. -Needs outpatient follow up. Acute on chronic diastolic heart failure 023 Assessment & Plan (04/29/2022 1:54 PM STENCIL INSPECTOR): TTE with normal EF. Previously g1DD and increased RVSP. -S/P 60mg IV Lasix in ED, then 40mg IV BID daily -Will change to Lasix 40mg po 04/30 -Continue metoprolol, statin, ASA Assessment & Plan (04/28/2022 1:17 AM STENCIL INSPECTOR): TTE with normal EF. Previously g1DD and increased RVSP. Hypervolemic on examination today. -S/P 60mg IV Lasix in ED, continue 40mg IV BID daily -Monitor electrolytes and replete -Continue metoprolol, statin, ASA Venous stasis dermatitis of both lower extremiti es 04/27/2022 Assessment & Plan (04/29/2022 1:54 PM STENCIL INSPECTOR): Chronic venous stasis dermatitis. No infectious symptoms, [...] following. Assessment & Plan (04/28/2022 1:10 AM STENCIL INSPECTOR): Chronic venous stasis dermatitis. No infectious symptoms, normal lactate, no fevers, and no WBC making infection less concerning though given ulcer on left lateral leg, cannot rule out superimposed infection. Also has prior dopplers demonstrating chronic DVT at the level of the popliteal vein in the left. Post thrombotic changes could be contributing though bilateral symptoms. Discussed with vascular career education teacher about AC in chronic DVTs and [...] 09/20/2020 Assessment & Plan (04/30/2022 4:08 PM STENCIL INSPECTOR): Elevated total protein thought to be related to HCV. -Check SPEP/UPEP given alk phos elevation. Immunofixation unremarkable. UPEP pending. -Needs to follow up with ID for HCV treatment. Assessment & Plan (04/28/2022 1:13 AM STENCIL INSPECTOR): Elevatedt total protein thought to be related [...] 08/22/2019 Assessment & Plan (04/30/2022 4:09 PM STENCIL INSPECTOR): Smokes @ 1ppd -Duonebs for now -Smoking cessation; wants nicotine patch in the hospital; states he has some at home and does not need any prescribed. Assessment & Plan (04/28/2022 1:11 AM STENCIL INSPECTOR): Wheezing bilaterally. Denies SOB. Still smoking. Not [...] abuse Assessment & Plan (04/30/2022 4:07 PM STENCIL INSPECTOR): Active use of Fentanyl. No longer followed in clinic for Suboxone; was being followed at [facility] in [place] up until 2mo ago per pt. -Encourage cessation -Seen for substance use. Pt is currently on patch. When discussing f/u at the [facility], he reports that he plans on quitting on his own. On further discussion, he agreed to an appointment - he will be seeing them on Tuesday. Assessment & Plan (04/28/2022 1:12 AM STENCIL INSPECTOR): Active use of Fentanyl. No longer followed [...] Assessment & Plan (08/22/2019 5:28 AM CDT): [place] most likely to be drug-induced reaction. No [...] How often do you attend chur or christianity services? Never 02/24/2022 Do you belong to any clubs o r organizations such as baptism groups, unions, fraternal or athletic groups, or [...] place to sleep or slept in a [place] facility (including now)? No 02/24/2022 Personal Safety Answer Date Recorded Have you ever been in or are you currently in a harmful physical or emotional relationship or is someone making you feel afraid or unsafe? Denies 11/26/2022 Sex and Gender Information Value Date Recorded Sex Assigned at Not on file Legal Sex Male 6:41 PM STENCIL INSPECTOR Gender Identity Not on file Sexual Orientation [...] (258 lb 6.4 oz) 06/04/2022 9:57 AM STENCIL INSPECTOR Height 182.9 cm (6' 0.01) 06/04/2022 9:57 AM CS T Body Mass Index 35.04 06/04/2022 9:57 AM STENCIL INSPECTOR Plan of Treatment Health Maintenance Due Date [...] HEPATITIS C GENOTYPE Routine 06/04/2022 11:06 AM STENCIL INSPECTOR Acute hepatitis C virus infection without hepatic coma CT ABDOMEN PELVIS WO CONTRAST 09/06/2020 12:00 AM CDT from Last 3 Months or Most Recently Relevant to Health Maintenance Results * Hepatitis C genotype (06/04/2022 11:06 AM STENCIL INSPECTOR) HCV genotype [facility]NP [facility] Comment: HCV Genotype, S was cancelled on 06/09/2022 at 16:01; Duplicate test request. Test Performed by: [facility] [address] [place] [address] Ground Support Agent: Harpal Gregory M.D. Ph.D.; CLIA# [id number] Blood 06/04/2022 11:0 6 AM STENCIL INSPECTOR 06/04/2022 1:32 PM STENCIL INSPECTOR Gudelia Singh MD LAB MICROBIOLOGY - GENERAL ORDER TATYANA Final Result Performing Organization Address City/State/[facility] Co de Phone Number [facility] Department [place] [address] * CT Abdomen Pelvis WO Contrast (09/06/2020 12:00 AM CDT) Anatomical Region Laterality Modality Body N/A Computed Tomogra phy 09/06/2020 2:12 PM CDT Narrative 09/06/2020 2:23 PM CDT Patient Name: OZZY CH Ordering Dr: Francesca Zazueta MD D.O.B: 1960 Exam Date: 09/06/20 0000 Age: 60 Sex: Male MR#: [id number] Loc: S220-02 RADIOLOGY REPORT Order #[id number] CT Scan CT Abd/Pelvis WO IV Contrast [...] by Danette Maya TS T: Report ID: [id number] Reading Location: [place] [address] REPORT ELECTRONICALLY SIGNED IN OTHER VENDOR SYSTEM Resulting Agency Comment I Procedure Note Danette Maya MD - 09/06/2020 Patient Name: OZZY CH Dr: Francesca Zazueta MD D.O.B: 1960 Exam Date: 09/06/20 0000 Age: 60 Sex: Male MR#: [id number] Loc: S220-02 RADIOLOGY REPORT Order #[id number] CT Scan CT Abd/Pelvis WO IV Contrast [...] signed by Danette MILLER T: Report ID: [id number] Reading Location: [id number] REPORT ELECTRONICALLY SIGNED IN OTHER VENDOR SYSTEM Francesca Zazueta MD G CT PROCEDUR ES Final Result from Last 3 Months or Most Recently Relevant to Health Maintenance Insurance [facility] [address] [address] Advance Directives For more information, please contact: [phone] * Full Code (Latest Code Status on [...] 5:04 AM 08/22/2019 9:25 PM Care Teams Horseradish Maker Relationship Specialty Start Date End Date Tomeka Knight PA PCP - General Physician Manager Of Radiology 06/28/19
--- OUTSIDE RECORDS SUMMARY | 2025-02-21 20:05 | XMS_ITS | Clinical Summary ---
Author Organization [facility] Address [address] [place] [id number] Care Team Providers Care Fleshing Machine Operator Name Role Phone Emanuel Nguyen MD Primary Care Provider [phone] Michael Flanagan MD Unavailable [phone] Allergies No known active allergies Medications aspirin [...] 03/09/2018 Assessment & Plan (03/10/2018 7:33 AM REVERBERATORY FURNACE SUPERVISOR): Chronic, stable. - Continue home Lisinopril-HCTZ 20-12.5 PO daily HLD (hyperlipidemia) 03/09/2018 Assessment & Plan (03/10/2018 7:32 AM REVERBERATORY FURNACE SUPERVISOR): Chronic, lipids on admission. - Continue home statin - Obtain hbA1c Respiratory failure 03/09/2018 Assessment & Plan (03/10/2018 7:30 AM REVERBERATORY FURNACE SUPERVISOR): Acute, stable and resolved this morning. Admitted [...] 03/09/2018 Assessment & Plan (03/10/2018 7:31 AM REVERBERATORY FURNACE SUPERVISOR): Non-purulent, acute. - 1 g IV Rocephin (05/25) provides adequate coverage, transition to Omnicef on DC - Follow-up blood cultures - Follow-up CBC D-dimer, elevated 03/09/2018 Assessment & Plan (03/09/2018 11:00 PM REVERBERATORY FURNACE SUPERVISOR): Patient presented with bilateral lower extremity swelling [...] 03/09/2018 Assessment & Plan (03/09/2018 10:35 PM REVERBERATORY FURNACE SUPERVISOR): History of alcohol use, self reported 4-5 [...] on file Legal Sex Male 6:13 PM REVERBERATORY FURNACE SUPERVISOR Gender Identity Not on file Sexual [...] Documents on File Type Date Recorded Patient Law Examiner Expl anation Advance Directives and Living Will 03/11/2018 11:18 AM 03-10-18 POA FOR HEALTHCARE * DNR (Latest Code Status on File) Date Activated Date Inactivated Comments 08/18/2019 1:51 AM 08/18/2019 12:22 PM * Full Code Date Activated Date Inactivated Comments 03/09/2018 10:17 PM 03/10/2018 5:23 PM Care Teams Fleshing Machine Operator Relationship Specialty Start Date End Date Emanuel Nguyen MD [address] [facility] [address] [place] [address] PCP - General FAMILY PRACTICE 04/03/18 Michael Flanagan MD [address] [facility] [address] [place] [address] Mayo Water Jet Operator CARDIOVASCULAR DISEASE 04/20/18
[2025-02-21] MEDS: BUPRENORPHINE/NALOXONE (*CRX) 4 MG/1 MG SL FILM 3 EACH SUBLINGUAL (21:16)
[2025-02-21] MEDS: ACETAMINOPHEN 325 MG TABLET 650 MG PO (21:16)
[2025-02-21] MEDS: DOXEPIN HCL 25 MG CAPSULE PO (21:16)
[2025-02-22] VITALS (12 sets, daily range): BP systolic 111–140; BP diastolic 58–76; PULSE 78–93; RESP 18–20; TEMP 36.2–37.1; O2SAT 96–100
[2025-02-22] MEDS: IPRATROPIUM 0.5 MG/ALBUTEROL SULFATE 2.5 MG (BASE) AMPUL.NEB 3 ML INHALATION ×3 (02:42→13:10)
[2025-02-22] MEDS: VANCOMYCIN 1,500 MG/NS 500 ML 1,500 MG/500 ML BAG 125 MG IVPB (03:05)
[2025-02-22 06:34] LABS: Alanine Aminotransferase 10 U/L (6-50); Albumin Level 3.8 g/dL (3.5-5.1); Alkaline Phosphatase 82 U/L (38-126); Anion Gap 9 mmol/L (4-12); Aspartate Amino Transferase 20 U/L (17-59); Bilirubin,Total 0.4 mg/dL (0.2-1.3); Blood Urea Nitrogen 23 mg/dL (9-20); Calcium 7.8 mg/dL (8.4-10.2); Carbon Dioxide 28 mmol/L (22-30); Chloride 97 mmol/L (98-107); Estimated CRCL calculation 108 ml/min; Estimated Glomerular Filt Rate > 60; Glucose 96 mg/dL (65-110); Potassium 4.8 mmol/L (3.4-5.0); Sodium 134 mmol/L (137-145); Total Protein 7.9 g/dL (6.3-8.2)
[2025-02-22] MEDS: FLUTICASONE/UMECLIDIN/VILANTER 100-62.5-25 MCG ELLIPTA 1 PUFF INHALATION (07:42)
[2025-02-22 07:46] LABS: Hematocrit 33.9 % (42.0-52.0); Hemoglobin 10.3 g/dL (14.0-18.0); Immature Granulocyte Percent A 0.4 % (0-0.5); Lymphocytes Absolute Auto 1.34 K/mm3 (0.9-3.2); Mean Corpuscular HGB Conc 30.4 g/dl (32-36); Mean Corpuscular Hemoglobin 28.8 pg (26-34); Mean Corpuscular Volume 94.7 fl (80-100); Nucleated Red Blood Cells Absolute Auto 0.000 K/mm3 (0.0-0.012); Nucleated Red Blood Cells Perc 0.0 % (0.0-0.2); Platelet Count Result 207 k/mm3 (150-375); Red Blood Count 3.58 M/mm3 (4.6-6.20); White Blood Count 7.4 K/mm3 (4.5-10.0)
[2025-02-22] MEDS: BUPRENORPHINE/NALOXONE (*CRX) 4 MG/1 MG SL FILM 3 EACH SUBLINGUAL ×2 (11:33→16:37)
[2025-02-22] MEDS: THIAMINE HCL 100 MG TABLET PO (11:34)
[2025-02-22] MEDS: FOLIC ACID 1 MG TABLET PO (11:34)
[2025-02-22] MEDS: ATORVASTATIN 20 MG TABLET PO (11:34)
[2025-02-22] MEDS: ASPIRIN 81 MG ENTERIC TABLET PO (11:34)
[2025-02-22] MEDS: ENOXAPARIN 40 MG/0.4 ML SYRINGE SUB-Q (11:34)
[2025-02-22] MEDS: METOPROLOL TARTRATE 25 MG TABLET PO (12:03)
[2025-02-22] MEDS: METOPROLOL TARTRATE 12.5 MG TABLET PO (12:05)
[2025-02-22] MEDS: SPIRONOLACTONE 25 MG TABLET PO (12:05)
[2025-02-22] MEDS: BUMETANIDE 1 MG TABLET 2 MG PO ×2 (12:05→16:37)
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
--- NOTE | 2025-02-22 19:02 | PC.NURSE ---
when pt discharged he received his inhaler and vape back
== END 2025-02-22 18:05 | disposition home or self-care (01) ==
LOC: ANHED 15:11 → ANH3MEDSUR 02-22 08:40
PROVIDERS: Nurse Practitioner Adult Health; Physician Assistant; Admitting Provider Family Medicine; Emergency Provider Student in an Organized Health Care Education/Training Program; PCP Internal Medicine; Visit Provider Student in an Organized Health Care Education/Training Program
DX: L03.116 Cellulitis of left lower limb (principal); R59.0 Localized enlarged lymph nodes; J43.9 Emphysema, unspecified; I11.0 Hypertensive heart disease with heart failure; I50.810 Right heart failure, unspecified; J96.10 Chronic respiratory failure, unspecified whether with hypoxia or hypercapnia; J96.92 Respiratory failure, unspecified with hypercapnia; J96.91 Respiratory failure, unspecified with hypoxia; I87.8 Other specified disorders of veins; R60.0 Localized edema; D53.9 Nutritional anemia, unspecified; E78.5 Hyperlipidemia, unspecified; M15.9 Polyosteoarthritis, unspecified; Z99.81 Dependence on supplemental oxygen; G47.33 Obstructive sleep apnea (adult) (pediatric); Z91.199 Patient's noncompliance with other medical treatment and regimen due to unspecified reason; E66.9 Obesity, unspecified; Z68.39 Body mass index [BMI] 39.0-39.9, adult; M79.5 Residual foreign body in soft tissue; F19.10 Other psychoactive substance abuse, uncomplicated; Z87.891 Personal history of nicotine dependence; Z79.82 Long term (current) use of aspirin; Z79.891 Long term (current) use of opiate analgesic; Z79.51 Long term (current) use of inhaled steroids; Z79.2 Long term (current) use of antibiotics; Z82.49 Family history of ischemic heart disease and other diseases of the circulatory system; Z83.438 Family history of other disorder of lipoprotein metabolism and other lipidemia; Z83.3 Family history of diabetes mellitus; Z80.9 Family history of malignant neoplasm, unspecified; Z83.6 Family history of other diseases of the respiratory system
CPT/HCPCS: 36415; 71046; 73600; 73620; 80053; 83735; 83880; 84484; 85025; 85610; 85652; 85730; 86140; 87040; 93005; 93970; 94640; 96365; 96366; 96372; 96376; 99212; 99285; A9270; G0378; G0379; G0463; J1650; J3373